=== PATIENT | female | born 1935 ===

== ENCOUNTER 2017-11-27 13:35 | Inpatient (IN) | payer MEDICARE, OTHER ==
[2017-11-27 13:35] VITALS: BMI 35.2
[2017-11-27] MEDS ORDERED: DiphenhydrAMINE 50 mg/ml Inj IVP STA (14:58)
[2017-11-27 15:24] LABS: HEMOGLOBIN 12.7 g/dL (11.0-16.0); MEAN CORPUSCULAR HEMOGLOBIN 29.7 pg (27.0-31.0); MEAN CORPUSCULAR HGB CONC 33.6 g/dL (33.0-37.0); MEAN PLATELET VOLUME 10.6 fL (7.2-11.7); RBC 4.3 Mil/uL (3.80-5.20); RED CELL DISTRIBUTION WIDTH 15.7 % (11.5-14.5); WHITE BLOOD COUNT 8.6 K/uL (4.8-10.8)
[2017-11-27 15:31] LABS: MEAN CELL VOLUME 88.3 fL (81.0-99.0)
[2017-11-27] MEDS ORDERED: DiphenhydrAMINE 50 mg/ml Inj ONE (15:33)
[2017-11-27 15:35] LABS: INR 1.2; PROTHROMBIN TIME 12.6 SECONDS (9.7-12.2)
[2017-11-27 15:44] LABS: ALB/GLOB RATIO 0.9 (1.0-2.1); ALBUMIN 3.7 g/dL (3.5-5.0)
[2017-11-27 15:48] LABS: EOS # 0.4 K/uL (0.0-0.7); LYMPH # 2.8 K/uL (1.0-4.3); MONO # 0.4 K/uL (0.0-0.8)
[2017-11-27 15:49] LABS: BILIRUBIN,DIRECT 21.4 mg/dL (0.0-0.4)
[2017-11-27] MEDS ORDERED: Sodium Chloride 0.9% 1,000 ML IV ONE (15:49)
[2017-11-27 16:47] LABS: HEPATITIS A IGM NEGATIVE (NEGATIVE); HEPATITIS B CORE AB NEGATIVE (NEGATIVE); HEPATITIS B SURFACE AG Negative (NEGATIVE); HEPATITIS C ANTIBODY NEGATIVE (NEGATIVE)
[2017-11-27] MEDS ORDERED: Iodixanol 320 MG/ML 100 ML BOTTLE IV ONE (17:10)
[2017-11-27 17:55] LABS: SQUAMOUS EPITHIAL 1 /hpf (0-5); URINE BACTERIA FEW (<OCC); URINE BILIRUBIN 2+ (NEGATIVE); URINE BLOOD NEGATIVE (NEGATIVE); URINE CLARITY Hazy (Clear); URINE COLOR Amber (YELLOW); URINE GLUCOSE (UA) 1+ mg/dL (Normal); URINE LEUKOCYTE ESTERASE NEG Leu/uL (Negative); URINE PROTEIN NEGATIVE (NEGATIVE)
--- NOTE | 2017-11-27 18:00 | CT ---
Date of service: 11/27/2017 PROCEDURE: CT Abdomen and Pelvis with contrast HISTORY: Jaundice. Abnormal LFTs. COMPARISON: None. TECHNIQUE: CT scan of the abdomen and pelvis was performed after administration of intravenous contrast. Oral contrast was not administered. Coronal and sagittal reformatted images were obtained. Contrast dose: 100 mL Visipaque Radiation dose: Total exam DLP = 1039.31 mGy-cm. This CT exam was performed using one or more of the following dose reduction techniques: Automated exposure control, adjustment of the mA and/or kV according to patient size, and/or use of iterative reconstruction technique. FINDINGS: LOWER THORAX: There is dependent atelectasis in the lung bases LIVER: Normal in size and there is diffuse fatty liver. Mild intrahepatic ductal dilatation. GALLBLADDER AND BILE DUCTS: The gallbladder is surgically absent. There is moderate diffuse dilatation of the common bile. The common bile duct measures 2.0 cm. No evidence for choledocholithiasis. PANCREAS: Diffuse fatty replacement. No gross lesion or ductal dilatation. SPLEEN: Normal in size and appearance. ADRENALS: No discrete nodule. KIDNEYS AND URETERS: Normal in size with homogeneous enhancement. No hydronephrosis. No solid mass. There is a 2.0 cm simple cyst in the lower pole of the right kidney. Small low-attenuation lesions in the left kidney are too small to characterize by CT criteria. VASCULATURE: Atherosclerotic aortoiliac calcifications. No aortic aneurysm. BOWEL: The small bowel loops are normal in caliber. There is scattered left colonic diverticulosis without CT evidence for acute diverticulitis. There is moderate amount of stool in the colon. No bowel dilatation or obstruction. APPENDIX: Normal appendix. PERITONEUM: Unremarkable. No free fluid. No free air. LYMPH NODES: Unremarkable. No enlarged lymph nodes. BLADDER: Unremarkable. REPRODUCTIVE: Unremarkable. BONES: No acute fracture. Within normal limits for the patient's age. OTHER FINDINGS: None. IMPRESSION: 1. Fatty liver. 2. Mild intrahepatic biliary dilatation and moderate dilatation of the common bile duct. No CT evidence for choledocholithiasis. Although these findings could be related to cholecystectomy status, distal common bile duct stricture cannot be excluded. No CT evidence for periampullary or pancreatic mass. 3. Left colonic diverticulosis without CT evidence for acute diverticulitis.
--- NOTE | 2017-11-27 18:29 | C.PDOC ---
History Of Present Illness Pt is c/o worsening jaundice. Time Seen by Provider: 11/27/17 14:05 Chief Complaint (Nursing): Abdominal Pain History Per: Patient Onset/Duration Of Symptoms: Days (few) Current Symptoms Are (Timing): Still Present Severity: Mild Location Of Pain/Discomfort: Epigastric Quality Of Discomfort: Unable To Describe, "Pain" Associated Symptoms: Other (Jaundice) Alleviating Factors: None Recent travel outside of the [place]: Yes (to [facility]) Additional History Per: Prior Records Past Medical History Reviewed: Historical Data, Nursing Documentation, Vital Signs Vital Signs: Last Vital Signs Temp 99 F 11/27/17 18:18 Pulse 77 11/27/17 18:18 Resp 16 11/27/17 18:18 BP 127/73 11/27/17 18:18 Pulse Ox 98 11/27/17 18:18 - Medical History PMH: Diabetes, HTN, Hypothyroidism Surgical History: Cholecystectomy Family History: States: Unknown Family Hx - Social History Hx Tobacco Use: No Hx Alcohol Use: No Hx Substance Use: No Review Of Systems Except As Marked, All Systems Reviewed And Found Negative. Constitutional: Negative for: Fever Cardiovascular: Negative for: Chest Pain Respiratory: Negative for: Shortness of Breath Gastrointestinal: Negative for: Vomiting Genitourinary: Negative for: Dysuria Musculoskeletal: Positive for: Back Pain. Negative for: Neck Pain Skin: Positive for: Jaundice Neurological: Negative for: Weakness, Numbness, Seizures, Altered Mental Status Physical Exam - Physical Exam Appears: No Acute Distress Skin: Warm, Dry, Jaundice Head: Atraumatic Eye(s): bilateral: PERRL, EOMI, Scleral Icterus Neck: Normal ROM, Supple Cardiovascular: Rhythm Regular Respiratory: Normal Breath Sounds, No Accessory Muscle Use Gastrointestinal/Abdominal: Soft, No Tenderness Back: No CVA Tenderness Extremity: Normal ROM Neurological/Psych: Oriented x3, Normal Motor, Normal Sensation ED Course And Treatment - Laboratory Results Result Diagrams: 11/27/17 15:20 11/27/17 15:20 Lab Interpretation: Abnormal Interpretation Of Abnormal: Abnormal LFTs O2 Sat by Pulse Oximetry: 98 Pulse Ox Interpretation: Normal Disposition Discussed With : Desi Rooney Comment: She accepted pt on her service. Doctor Will See Patient In The: Hospital Counseled Patient/Family Regarding: Studies Performed, Diagnosis - Disposition Disposition: HOSPITALIZED Disposition Time: 18:31 Condition: SERIOUS - Clinical Impression Clinical Impression: Jaundice, Liver failure
[2017-11-28] MEDS: Levothyroxine 112 MCG TAB PO SCH (06:19)
[2017-11-28 08:20] LABS: ALT/SGPT 980 U/L (9-52); BLOOD UREA NITROGEN 37 mg/dL (7-17); CALCIUM 9.6 mg/dl (8.6-10.4); GFR AFRICAN-AMERICAN > 60; GFR NON-AFRICAN AMERICAN > 60
[2017-11-28 08:21] LABS: ALB/GLOB RATIO 0.9 (1.0-2.1); ALBUMIN 3.5 g/dL (3.5-5.0)
[2017-11-28 08:50] LABS: AST/SGOT 929 U/L (14-36)
[2017-11-28] MEDS: (Novolog) Insulin Aspart, Recombinant 100 u/ml 10 ml vial SC SCH ×4 (08:52→21:53)
[2017-11-28] MEDS: Enoxaparin 40 mg Syringe SC SCH (09:00)
[2017-11-28] MEDS: Metoprolol Succinate 50 mg XL Tab PO SCH (09:01)
[2017-11-28] MEDS ORDERED: Metoprolol Succinate 50 mg XL Tab PO SCH ×2 (10:00)
--- NOTE | 2017-11-28 11:07 | US ---
Date of service: 11/28/2017 HISTORY: elevated LFTs r/o obstruction COMPARISON: None. TECHNIQUE: Sonographic evaluation of the abdomen. FINDINGS: LIVER: Measures 13.0 cm. There is diffuse increased echogenicity of the liver parenchyma. No mass. There is mild intrahepatic bile duct dilatation. GALLBLADDER: Surgically absent. COMMON BILE DUCT: Measures 15 mm. No stones. Diffuse dilatation of the common bile duct without evidence for choledocholithiasis. PANCREAS: Unremarkable as visualized. No mass. No ductal dilatation. RIGHT KIDNEY: Measures 11.0cm. Normal echogenicity. No calculus, mass, or hydronephrosis. LEFT KIDNEY: Measures 8.9cm. Normal echogenicity. No calculus, mass, or hydronephrosis. There is a 2.0 x 1.4 x 2.0 cm simple cyst in the lower pole. SPLEEN: Normal in size and contour. No mass. AORTA: No aneurysmal dilatation. IVC: Unremarkable. OTHER FINDINGS: None. IMPRESSION: Diffuse increased echogenicity in the liver may reflect hepatic steatosis however parenchymal infectious/ inflammatory etiologies cannot be entirely excluded. Clinical and laboratory correlation is advised. Mild intra and extrahepatic biliary ductal dilatation, no sonographic evidence for choledocholithiasis. Although findings could be related to post cholecystectomy status, distal obstruction cannot be excluded. If clinically indicated, correlation with ERCP may be performed with
--- NOTE | 2017-11-28 15:43 | CP.PCM.CON ---
History of Present Illness - History of Present Illness History of Present Illness: This is an 82 year old woman with chief complaint of itching and jaundice. Patient had normal liver enzymes in April. She presented to Dr. Rooney's office 11/27/17 with a three day history of itching and yellow skin. She denies having nausea, vomiting, abdominal pain, heartburn. She had diarrhea one week prior to admission which resolved spontaneously. Abnormal liver enzymes were noted in the ER: TBILI 22.7, AST 952, ALT 1190, ALKP 2199, GGT 1388. CT scan showed mild IHBD, CBD 2.0 cm without obvious choledocholithiasis. MRCP was ordered. Review of Systems - Constitutional Constitutional: absent: Chills - EENT Eyes: absent: Blurred Vision - Cardiovascular Cardiovascular: absent: Chest Pain, Dyspnea - Respiratory Respiratory: absent: Cough, Dyspnea - Gastrointestinal Gastrointestinal: Diarrhea. absent: Abdominal Pain, Constipation, Nausea, Vomiting - Genitourinary Genitourinary: absent: Change in Urinary Stream Past Patient History - Past Medical History & Family History Past Medical History?: Yes - Past Social History Smoking Status: Former Smoker - CARDIAC Hx Cardiac Disorders: Yes Hx Hypertension: Yes - PULMONARY Hx Respiratory Disorders: Yes (DYSPNEA ON EXERTION) - NEUROLOGICAL Hx Neurological Disorder: No - HEENT Hx HEENT Problems: Yes Hx Cataracts: Yes - RENAL Hx Chronic Kidney Disease: No - ENDOCRINE/METABOLIC Hx Endocrine Disorders: Yes Hx Hypothyroidism: Yes - HEMATOLOGICAL/ONCOLOGICAL Hx Blood Disorders: No - INTEGUMENTARY Hx Dermatological Problems: No - MUSCULOSKELETAL/RHEUMATOLOGICAL Hx Falls: No - GASTROINTESTINAL Hx Gastrointestinal Disorders: Yes Hx Gastroesophageal Reflux: Yes - GENITOURINARY/GYNECOLOGICAL Hx Genitourinary Disorders: No - PSYCHIATRIC Hx Substance Use: No - SURGICAL HISTORY Hx Surgeries: Yes Hx Cholecystectomy: Yes - ANESTHESIA Hx Anesthesia: Yes Hx Anesthesia Reactions: No Hx Malignant Hyperthermia: No Meds Allergies/Adverse Reactions: Allergies Allergy/AdvReac Type Severity Reaction Status Date / Time aspirin Allergy Intermediate SHORTNESS Verified 06/02/15 10:12 OF BREATH honey Allergy Intermediate SHORTNESS Verified 06/02/15 10:12 OF BREATH - Medications Medications: Current Medications Clopidogrel Bisulfate (Plavix) 75 mg PO DAILY [facility] Last Admin: 11/28/17 09:00 Dose: 75 mg Enoxaparin Sodium (Lovenox) 40 mg SC DAILY [facility] Last Admin: 11/28/17 09:00 Dose: 40 mg Glimepiride (Amaryl) 4 mg PO ACB [facility] Last Admin: 11/28/17 08:52 Dose: 4 mg Hydrochlorothiazide (Microzide) 12.5 mg PO DAILY [facility] Last Admin: 11/28/17 09:00 Dose: 12.5 mg Insulin Aspart (Novolog) 0 unit SC ACHS [facility] PRN Reason: Protocol Last Admin: 11/28/17 11:52 Dose: 4 units Levothyroxine Sodium (Synthroid) 112 mcg PO DAILY@0630 [facility] Last Admin: 11/28/17 06:19 Dose: 112 mcg Losartan Potassium (Cozaar) 100 mg PO DAILY [facility] Last Admin: 11/28/17 09:00 Dose: 100 mg Metformin HCl (Glucophage) 850 mg PO TID [facility] Last Admin: 11/28/17 13:37 Dose: 850 mg Metoprolol Succinate (Toprol Xl) 50 mg PO DAILY [facility] Last Admin: 11/28/17 09:01 Dose: 50 mg Physical Exam - Constitutional Appears: No Acute Distress - Head Exam Head Exam: ATRAUMATIC, NORMOCEPHALIC - Eye Exam Eye Exam: Scleral icterus - Neck Exam Neck exam: Negative for: Lymphadenopathy, Thyromegaly - Respiratory Exam Respiratory Exam: NORMAL BREATHING PATTERN. absent: Rales, Rhonchi, Wheezes - Cardiovascular Exam Cardiovascular Exam: REGULAR RHYTHM, +S1, +S2. absent: Gallop, Rubs, Systolic Murmur - GI/Abdominal Exam GI & Abdominal Exam: Normal Bowel Sounds, Soft. absent: Mass, Organomegaly, Tenderness - Rectal Exam Rectal Exam: Deferred - Extremities Exam Extremities exam: Negative for: calf tenderness, pedal edema Results - Vital Signs Recent Vital Signs: Last Vital Signs Temp 98.6 F 11/28/17 07:36 Pulse 76 11/28/17 07:36 Resp 20 11/28/17 07:36 BP 134/64 11/28/17 07:36 Pulse Ox 97 11/28/17 07:36 - Labs Result Diagrams: 11/27/17 15:20 11/29/17 07:09 Labs: Laboratory Results - last 24 hr 11/27/17 11/27/17 11/27/17 15:20 15:20 15:20 Neut % (Auto) 58.0 Lymph % (Auto) 32.0 Holt % (Auto) 5.0 Eos % (Auto) 5.0 H Baso % (Auto) 0.0 Neut # (Auto) 5.0 Lymph # (Auto) 2.8 Holt # (Auto) 0.4 Eos # (Auto) 0.4 Baso # (Auto) 0.0 Total Counted Cancelled Neutrophils % (Manual) Cancelled Band Neutrophils % Cancelled Lymphocytes % (Manual) Cancelled Reactive Lymphs % Cancelled Monocytes % (Manual) Cancelled Eosinophils % (Manual) Cancelled Basophils % (Manual) Cancelled Metamyelocytes % Cancelled Myelocytes % Cancelled Promyelocytes % Cancelled Blast Cells % Cancelled Plasma Cell % (Manual) Cancelled Nucleated RBC % Cancelled Hypersegmented Polys Cancelled Smudge Cells Cancelled Toxic Granulation Cancelled Dohle Bodies Cancelled Isis Rods Cancelled Platelet Estimate Cancelled Plt Clumps, EDTA Cancelled Large Platelets Cancelled Giant Platelets Cancelled RBC Morphology Cancelled Polychromasia Cancelled Hypochromasia (manual) Cancelled Poikilocytosis (manual Cancelled Basophilic Stippling Cancelled Anisocytosis (manual) Cancelled Microcytosis (manual) Cancelled Macrocytosis (manual) Cancelled Spherocytes Cancelled Sickle Cells Cancelled Target Cells Cancelled Tear Drop Cells Cancelled Ovalocytes Cancelled Stomatocytes Cancelled Helmet Cells Cancelled Mercer-Marion Bodies Cancelled Sonia Cells Cancelled Acanthocytes (Spur) Cancelled Rouleaux Cancelled Schistocytes Cancelled PT 12.6 H INR 1.2 APTT 35 H Sodium 131 L Potassium 4.6 Chloride 97 L Carbon Dioxide 20 L Anion Gap 19 BUN 45 H Creatinine 1.2 Est GFR ( Amer) 52 Est GFR (Non-Af Amer) 43 POC Glucose (mg/dL) Random Glucose 273 H Calcium 10.0 Total Bilirubin 22.7 H Direct Bilirubin 21.4 H GGT 1385 H AST 951 H ALT 1190 H Alkaline Phosphatase 2199 H Total Protein 7.7 Albumin 3.7 Globulin 4.0 H Albumin/Globulin Ratio 0.9 L Lipase 72 Urine Color Urine Clarity Urine pH Ur Specific Boyden Urine Protein Urine Glucose (UA) Urine Ketones Urine Blood Urine Nitrate Urine Bilirubin Urine Urobilinogen Ur Leukocyte Esterase Ur Squamous Epith Cells Urine Bacteria Hepatitis A IgM Ab Hep Bs Antigen Hep B Core IgM Ab Hepatitis C Antibody 11/27/17 11/27/17 11/27/17 15:20 17:43 22:29 Neut % (Auto) Lymph % (Auto) Holt % (Auto) Eos % (Auto) Baso % (Auto) Neut # (Auto) Lymph # (Auto) Holt # (Auto) Eos # (Auto) Baso # (Auto) Total Counted Neutrophils % (Manual) Band Neutrophils % Lymphocytes % (Manual) Reactive Lymphs % Monocytes % (Manual) Eosinophils % (Manual) Basophils % (Manual) Metamyelocytes % Myelocytes % Promyelocytes % Blast Cells % Plasma Cell % (Manual) Nucleated RBC % Hypersegmented Polys Smudge Cells Toxic Granulation Dohle Bodies Isis Rods Platelet Estimate Plt Clumps, EDTA Large Platelets Giant Platelets RBC Morphology Polychromasia Hypochromasia (manual) Poikilocytosis (manual Basophilic Stippling Anisocytosis (manual) Microcytosis (manual) Macrocytosis (manual) Spherocytes Sickle Cells Target Cells Tear Drop Cells Ovalocytes Stomatocytes Helmet Cells Mercer-Marion Bodies Boelus Cells Acanthocytes (Spur) Rouleaux Schistocytes PT INR APTT Sodium Potassium Chloride Carbon Dioxide Anion Gap BUN Creatinine Est GFR ( Amer) Est GFR (Non-Af Amer) POC Glucose (mg/dL) 290 H Random Glucose Calcium Total Bilirubin Direct Bilirubin GGT AST ALT Alkaline Phosphatase Total Protein Albumin Globulin Albumin/Globulin Ratio Lipase Urine Color Galilea Urine Clarity Hazy Urine pH 5.0 Ur Specific Boyden 1.010 Urine Protein Negative Urine Glucose (UA) 1+ Urine Ketones Negative Urine Blood Negative Urine Nitrate Negative Urine Bilirubin 2+ H Urine Urobilinogen 2.0 H Ur Leukocyte Esterase Neg Ur Squamous Epith Cells 1 Urine Bacteria Few H Hepatitis A IgM Ab Negative Hep Bs Antigen Negative Hep B Core IgM Ab Negative Hepatitis C Antibody Negative 11/28/17 11/28/17 11/28/17 07:09 07:37 11:09 Neut % (Auto) Lymph % (Auto) Holt % (Auto) Eos % (Auto) Baso % (Auto) Neut # (Auto) Lymph # (Auto) Holt # (Auto) Eos # (Auto) Baso # (Auto) Total Counted Neutrophils % (Manual) Band Neutrophils % Lymphocytes % (Manual) Reactive Lymphs % Monocytes % (Manual) Eosinophils % (Manual) Basophils % (Manual) Metamyelocytes % Myelocytes % Promyelocytes % Blast Cells % Plasma Cell % (Manual) Nucleated RBC % Hypersegmented Polys Smudge Cells Toxic Granulation Dohle Bodies Isis Rods Platelet Estimate Plt Clumps, EDTA Large Platelets Giant Platelets RBC Morphology Polychromasia Hypochromasia (manual) Poikilocytosis (manual Basophilic Stippling Anisocytosis (manual) Microcytosis (manual) Macrocytosis (manual) Spherocytes Sickle Cells Target Cells Tear Drop Cells Ovalocytes Stomatocytes Helmet Cells Mercer-Marion Bodies Boelus Cells Acanthocytes (Spur) Rouleaux Schistocytes PT INR APTT Sodium 136 Potassium 4.3 Chloride 105 Carbon Dioxide 16 L Anion Gap 20 BUN 37 H Creatinine 0.9 Est GFR ( Amer) > 60 Est GFR (Non-Af Amer) > 60 POC Glucose (mg/dL) 263 H 349 H Random Glucose 245 H Calcium 9.6 Total Bilirubin 21.4 H Direct Bilirubin GGT AST 929 H ALT 980 H Alkaline Phosphatase 2100 H Total Protein 7.3 Albumin 3.5 Globulin 3.8 Albumin/Globulin Ratio 0.9 L Lipase Urine Color Urine Clarity Urine pH Ur Specific Boyden Urine Protein Urine Glucose (UA) Urine Ketones Urine Blood Urine Nitrate Urine Bilirubin Urine Urobilinogen Ur Leukocyte Esterase Ur Squamous Epith Cells Urine Bacteria Hepatitis A IgM Ab Hep Bs Antigen Hep B Core IgM Ab Hepatitis C Antibody Assessment & Plan (1) Jaundice Assessment and Plan: Patient has obstructive jaundice without obvious mass or common duct stones. Will order MRI and schedule ERCP for drainage. EUS may also be helpful, which may be arranged as an outpatient. Status: Acute
[2017-11-28 18:15] LABS: HEPATITIS B CORE AB NEGATIVE (NEGATIVE)
[2017-11-28 18:22] LABS: % IRON SATURATION 64 (20-55); IRON 103 ug/dL (37-170); TOTAL IRON BINDING CAPACITY 161 ug/dL (250-450)
[2017-11-28 18:27] LABS: HEPATITIS C ANTIBODY NEGATIVE (NEGATIVE)
[2017-11-28 18:34] LABS: HEPATITIS B SURFACE AG Negative (NEGATIVE)
[2017-11-28 19:47] LABS: FOLATE 18.1 ng/mL
--- NOTE | 2017-11-28 21:09 | CP.PCM.HP ---
History of Present Illness - History of Present Illness History of Present Illness: cc; Itching 82 year old jesus to my office 11/27 by sone due to a 3 days history of jaundice and pruritus\ PT denies abd pain. Denies recent travel except for trip to [place] about a month ago. Pt reported a couple of episodes of diarrhe a week ago but self limited. Pt denied acohol, neb meds or abd pain. PT had a vasquez years ago. Pmhs htn DM hypothyroidism PSH Vasquez social denies ethoh or alcohol meds; jardiance metformin glipizdie valsartan plavix family hx parents diseased Present on Admission - Present on Admission Any Indicators Present on Admission: No History of DVT/PE: No History of Uncontrolled Diabetes: No Urinary Catheter: No Decubitus Ulcer Present: No History Surgical Site Infection Following: None Review of Systems - Constitutional Constitutional: absent: Chills, Daytime Sleepiness - EENT Eyes: absent: Blurred Vision - Cardiovascular Cardiovascular: absent: Chest Pain, Chest Pain with Activity, Diaphoresis - Respiratory Respiratory: absent: Cough, Dyspnea, Wheezing, Pain on Inspiration - Gastrointestinal Gastrointestinal: Diarrhea. absent: Abdominal Pain, Belching, Constipation, Cramping - Genitourinary Genitourinary: absent: Change in Urinary Stream - Musculoskeletal Musculoskeletal: absent: Abnormal Gait Past Patient History - Past Medical History & Family History Past Medical History?: Yes - Past Social History Smoking Status: Former Smoker - CARDIAC Hx Cardiac Disorders: Yes Hx Hypertension: Yes - PULMONARY Hx Respiratory Disorders: Yes (DYSPNEA ON EXERTION) - NEUROLOGICAL Hx Neurological Disorder: No - HEENT Hx HEENT Problems: Yes Hx Cataracts: Yes - RENAL Hx Chronic Kidney Disease: No - ENDOCRINE/METABOLIC Hx Endocrine Disorders: Yes Hx Hypothyroidism: Yes - HEMATOLOGICAL/ONCOLOGICAL Hx Blood Disorders: No - INTEGUMENTARY Hx Dermatological Problems: No - MUSCULOSKELETAL/RHEUMATOLOGICAL Hx Falls: No - GASTROINTESTINAL Hx Gastrointestinal Disorders: Yes Hx Gastroesophageal Reflux: Yes - GENITOURINARY/GYNECOLOGICAL Hx Genitourinary Disorders: No - PSYCHIATRIC Hx Substance Use: No - SURGICAL HISTORY Hx Surgeries: Yes Hx Cholecystectomy: Yes - ANESTHESIA Hx Anesthesia: Yes Hx Anesthesia Reactions: No Hx Malignant Hyperthermia: No Meds Allergies/Adverse Reactions: Allergies Allergy/AdvReac Type Severity Reaction Status Date / Time aspirin Allergy Intermediate SHORTNESS Verified 06/02/15 10:12 OF BREATH honey Allergy Intermediate SHORTNESS Verified 06/02/15 10:12 OF BREATH Physical Exam - Constitutional Appears: Non-toxic, No Acute Distress - Eye Exam Eye Exam: Normal appearance, Scleral icterus - ENT Exam ENT Exam: Mucous Membranes Moist - Neck Exam Neck exam: Positive for: Normal Inspection. Negative for: Meningismus - Respiratory Exam Respiratory Exam: Clear to Auscultation Bilateral, NORMAL BREATHING PATTERN. absent: Chest Wall Tenderness, Prolonged Expiratory Phase - Cardiovascular Exam Cardiovascular Exam: REGULAR RHYTHM, RRR, +S1, +S2. absent: JVD, Rubs - GI/Abdominal Exam GI & Abdominal Exam: Normal Bowel Sounds, Soft. absent: Guarding, Mass, Organomegaly, Rebound, Rigid - Exam External exam: NORMAL EXTERNAL EXAM. absent: Swelling (ski: jaundice. +icterus) Results - Vital Signs Recent Vital Signs: Last Vital Signs Temp 97.9 F 11/28/17 16:57 Pulse 65 11/28/17 16:57 Resp 20 11/28/17 16:57 BP 126/71 11/28/17 16:57 Pulse Ox 98 11/28/17 16:57 - Labs Result Diagrams: 11/27/17 15:20 11/29/17 07:09 Labs: Laboratory Results - last 24 hr 11/27/17 11/28/17 11/28/17 22:29 07:09 07:37 Sodium 136 Potassium 4.3 Chloride 105 Carbon Dioxide 16 L Anion Gap 20 BUN 37 H Creatinine 0.9 Est GFR ( Amer) > 60 Est GFR (Non-Af Amer) > 60 POC Glucose (mg/dL) 290 H 263 H Random Glucose 245 H Calcium 9.6 Iron TIBC % Saturation Ferritin Total Bilirubin 21.4 H AST 929 H ALT 980 H Alkaline Phosphatase 2100 H Total Protein 7.3 Albumin 3.5 Globulin 3.8 Albumin/Globulin Ratio 0.9 L Vitamin B12 25-OH Vitamin D Total Folate Hep Bs Antigen Hep Bs Antibody Hep B Core IgM Ab Hepatitis C Antibody 11/28/17 11/28/17 11/28/17 11:09 16:33 16:45 Sodium Potassium Chloride Carbon Dioxide Anion Gap BUN Creatinine Est GFR ( Amer) Est GFR (Non-Af Amer) POC Glucose (mg/dL) 349 H 249 H Random Glucose Calcium Iron 103 TIBC 161 L % Saturation 64 H Ferritin Total Bilirubin AST ALT Alkaline Phosphatase Total Protein Albumin Globulin Albumin/Globulin Ratio Vitamin B12 25-OH Vitamin D Total Folate Hep Bs Antigen Hep Bs Antibody Hep B Core IgM Ab Hepatitis C Antibody 11/28/17 11/28/17 11/28/17 16:45 16:45 16:45 Sodium Potassium Chloride Carbon Dioxide Anion Gap BUN Creatinine Est GFR ( Amer) Est GFR (Non-Af Amer) POC Glucose (mg/dL) Random Glucose Calcium Iron TIBC % Saturation Ferritin 750.0 Total Bilirubin AST ALT Alkaline Phosphatase Total Protein Albumin Globulin Albumin/Globulin Ratio Vitamin B12 > 1000 H 25-OH Vitamin D Total 17.3 L Folate 18.1 Hep Bs Antigen Negative Hep Bs Antibody Negative Hep B Core IgM Ab Negative Hepatitis C Antibody Negative Assessment & Plan - Assessment and Plan (Free Text) Assessment: New onset obstructive jaundice NO prior history of liver disease Intrahepatic biliary dialation no evidence of chonlangitis neg for viral hepatitis prior LFT normal , normal prior alk phos no new meds discussed case with DR. Gomez MRI pending may need ERCP obstructive patten cholestyramine for pruritus pending treatment DM elevated sugars some meds helf for now small dose of levemir qhs bp is stable
[2017-11-28] MEDS: Cholestyramine 4 gm/Pkt UD PO SCH (22:27)
[2017-11-29] MEDS: Levothyroxine 112 MCG TAB PO SCH (06:35)
[2017-11-29] MEDS: (Novolog) Insulin Aspart, Recombinant 100 u/ml 10 ml vial SC SCH ×4 (07:37→21:29)
[2017-11-29 07:40] LABS: ALB/GLOB RATIO 0.9 (1.0-2.1); ALBUMIN 3.2 g/dL (3.5-5.0)
[2017-11-29] MEDS ORDERED: Gadodiamide 287 mg/ml 20 ml IV ONE (09:14)
[2017-11-29] MEDS ORDERED: Insulin Detemir 100 units/ml Vial (Levemir) SC SCH (10:00)
[2017-11-29] MEDS: Enoxaparin 40 mg Syringe SC SCH (10:21)
[2017-11-29] MEDS: Cholestyramine 4 gm/Pkt UD PO SCH ×2 (10:22→19:11)
[2017-11-29] MEDS: Metoprolol Succinate 50 mg XL Tab PO SCH (10:48)
--- NOTE | 2017-11-29 12:11 | MRI ---
Date of service: 11/29/2017 PROCEDURE: Magnetic Resonance Cholangiopancreatography HISTORY: COMPARISON: None available. TECHNIQUE: Multiplanar, multisequence MR images of the abdomen were obtained, including heavily T2 weighted MRCP images of the biliary system. Rotating maximum intensity projection images of the biliary system were generated. FINDINGS: MRCP: The common bile duct measures up to 16 mm in diameter. The common hepatic duct, proximal to the cystic duct insertion, measures 16 mm in diameter. There is no filling defect seen within the common bile duct. There is no evidence of choledocholithiasis. There is moderate intrahepatic biliary ductal dilatation. There is rapid symmetric change in caliber of the distal common bile duct in the intrapancreatic portion. There is no accompanying pancreatic ductal dilatation. The finding may indicate biliary stricture or less likely biliary neoplasm. There is no enhancing mass demonstrated at the level of the distal common bile duct, following intravenous gadolinium administration. LIVER: Normal size, contour and signal intensity. No mass. As noted above, there is moderate intrahepatic biliary ductal dilatation. GALLBLADDER: Status post cholecystectomy. Cystic duct remnant noted. SPLEEN: Unremarkable. PANCREAS: Unremarkable. ADRENALS: There is a 1.8 cm left adrenal mass. This mass loses signal intensity on progression from in phase to opposed phase images, consistent with lipid content. This is consistent with an adrenal adenoma. There is no right adrenal mass. KIDNEYS: Right lower pole renal cortical cyst, 1.7 cm. No hydronephrosis. AORTA: No aneurysm. ASCITES: None. OTHER FINDINGS: None. IMPRESSION: Intra and extrahepatic biliary ductal dilatation with rapid symmetric tapering of the distal common bile duct. Possible biliary stricture. Less likely biliary neoplasm. No enhancing mass. No pancreatic ductal dilatation. No evidence of choledocholithiasis. Incidental 1.8 cm left adrenal adenoma. Right lower pole renal cortical cyst.
[2017-11-29] MEDS ORDERED: Propofol 10 mg/ml Inj (20 ML) ONE (15:45)
[2017-11-29] MEDS ORDERED: Indomethacin 50 MG Suppository PR ONE ×2 (16:19→16:20)
--- NOTE | 2017-11-29 18:54 | RAD ---
Date of service: 11/29/2017 PROCEDURE: Intraoperative Fluoroscopy. HISTORY: JAUNDICE FINDINGS: Fluoroscopic assistance was provided for ERCP. Please refer to the operative report from CLARENCE Luna, , MD DIVYA. Total fluoroscopic time (continuous mode) utilized during the procedure 152.3 (seconds).
[2017-11-29] MEDS: Piperacill/Tazo 3.375gm in Dex 3.375 GM/50 ML BAG IVPB SCH (19:08)
[2017-11-29] MEDS: Lactated Ringer's 1,000 ML IV SCH (19:08)
--- NOTE | 2017-11-29 23:47 | CP.PCM.PN ---
Subjective - Date & Time of Evaluation Date of Evaluation: 11/29/17 Time of Evaluation: 23:59 - Subjective Subjective: Spoke to Dr. 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 Pt reports no abd pain and less prutitus today Objective - Vital Signs/Intake and Output Vital Signs (last 24 hours): Temp Pulse Resp BP Pulse Ox 97.1 F L 59 L 19 124/42 L 100 11/29/17 18:30 11/29/17 18:30 11/29/17 18:30 11/29/17 18:30 11/29/17 18:30 Intake and Output: 11/29/17 11/30/17 18:59 06:59 Intake Total 900 Balance 900 - Medications Medications: Current Medications Cholestyramine Resin (Questran) 4 gm PO BID [facility] Last Admin: 11/29/17 19:11 Dose: Not Given Clopidogrel Bisulfate (Plavix) 75 mg PO DAILY [facility] Last Admin: 11/29/17 10:21 Dose: Not Given Enoxaparin Sodium (Lovenox) 40 mg SC DAILY [facility] Last Admin: 11/29/17 10:21 Dose: Not Given Glimepiride (Amaryl) 4 mg PO BID [facility] Last Admin: 11/29/17 19:09 Dose: Not Given Hydrochlorothiazide (Microzide) 12.5 mg PO DAILY [facility] Last Admin: 11/29/17 10:48 Dose: 12.5 mg Lactated Ringer's (Lactated Ringer's) 1,000 mls @ 100 mls/hr IV .Q10H [facility] Last Admin: 11/29/17 19:08 Dose: 100 mls/hr Piperacillin Sod/Tazobactam Sod (Zosyn 3.375 Gm Iv Premix) 3.375 gm in 50 mls @ 100 mls/hr IVPB Q6H [facility] PRN Reason: Protocol Last Admin: 11/29/17 19:08 Dose: 100 mls/hr Insulin Aspart (Novolog) 0 unit SC ACHS [facility] PRN Reason: Protocol Last Admin: 11/29/17 21:29 Dose: Not Given Insulin Detemir (Levemir) 10 unit SC DAILY [facility] Last Admin: 11/29/17 10:21 Dose: Not Given Levothyroxine Sodium (Synthroid) 112 mcg PO DAILY@0630 [facility] Last Admin: 11/29/17 06:35 Dose: 112 mcg Metformin HCl (Glucophage) 850 mg PO TID [facility] Last Admin: 11/29/17 19:10 Dose: Not Given Metoprolol Succinate (Toprol Xl) 50 mg PO DAILY [facility] Last Admin: 11/29/17 10:48 Dose: 50 mg - Labs Labs: 11/27/17 15:20 11/29/17 07:09 PT 12.6 SECONDS (9.7-12.2) H 11/27/17 15:20 INR 1.2 11/27/17 15:20 APTT 35 SECONDS (21-34) H 11/27/17 15:20 - Constitutional Appears: Non-toxic - Eye Exam Eye Exam: Normal appearance, Scleral icterus - ENT Exam ENT Exam: Mucous Membranes Moist - Respiratory Exam Respiratory Exam: Clear to Ausculation Bilateral. absent: Chest Wall Tenderness - Cardiovascular Exam Cardiovascular Exam: RRR. absent: JVD - GI/Abdominal Exam GI & Abdominal Exam: Soft. absent: Tenderness - Extremities Exam Extremities Exam: absent: Joint Swelling Assessment and Plan - Assessment and Plan (Free Text) Assessment: Jaundice biliary stricture see HPI for details PT will be transfered to [facility] for procedure bp on low side decrease meds diabetes increased insulin
[2017-11-29 23:54] VITALS: RESP 20
[2017-11-30] MEDS: Piperacill/Tazo 3.375gm in Dex 3.375 GM/50 ML BAG IVPB SCH ×3 (00:08→12:22)
[2017-11-30] MEDS: Lactated Ringer's 1,000 ML IV SCH ×2 (04:27→06:01)
[2017-11-30] MEDS: Levothyroxine 112 MCG TAB PO SCH (06:02)
[2017-11-30 07:26] LABS: HEMOGLOBIN 11.9 g/dL (11.0-16.0); MEAN CELL VOLUME 87.8 fL (81.0-99.0); MEAN CORPUSCULAR HEMOGLOBIN 28.8 pg (27.0-31.0); MEAN CORPUSCULAR HGB CONC 32.8 g/dL (33.0-37.0); MEAN PLATELET VOLUME 10.3 fL (7.2-11.7); RBC 4.13 Mil/uL (3.80-5.20); RED CELL DISTRIBUTION WIDTH 16.6 % (11.5-14.5); WHITE BLOOD COUNT 10.3 K/uL (4.8-10.8)
[2017-11-30 07:53] LABS: ALBUMIN 3.3 g/dL (3.5-5.0); CALCIUM 9.3 mg/dl (8.6-10.4)
[2017-11-30] MEDS: (Novolog) Insulin Aspart, Recombinant 100 u/ml 10 ml vial SC SCH ×3 (07:58→17:30)
[2017-11-30 09:04] LABS: EOS # 0.2 K/uL (0.0-0.7); LYMPH # 3.9 K/uL (1.0-4.3); MONO # 0.1 K/uL (0.0-0.8); NEUT # 6.1 K/uL (1.8-7.0)
[2017-11-30] MEDS: Enoxaparin 40 mg Syringe SC SCH (09:17)
[2017-11-30] MEDS: Cholestyramine 4 gm/Pkt UD PO SCH ×2 (09:30→17:30)
[2017-11-30] MEDS: Metoprolol Succinate 50 mg XL Tab PO SCH (09:30)
--- NOTE | 2017-11-30 10:07 | CP.PCM.PN ---
Subjective - Date & Time of Evaluation Date of Evaluation: 11/30/17 Time of Evaluation: 09:50 - Subjective Subjective: F/u jaundice. Covering DR Gomez. Son is present. Reports epig pain started today am- sharp, moderate. No back pain, no radiation. Denies fever, chills, SZ, LOC, AH, cough, RB, melena, hemoptysis. Reports sl throat pain Objective - Vital Signs/Intake and Output Vital Signs (last 24 hours): Temp Pulse Resp BP Pulse Ox 97.5 F L 66 20 145/73 96 11/30/17 07:59 11/30/17 07:59 11/30/17 07:59 11/30/17 07:59 11/30/17 07:59 Intake and Output: 11/30/17 11/30/17 06:59 18:59 Intake Total 800 Balance 800 - Medications Medications: Current Medications Cholestyramine Resin (Questran) 4 gm PO BID [facility] Last Admin: 11/30/17 09:30 Dose: 4 gm Clopidogrel Bisulfate (Plavix) 75 mg PO DAILY [facility] Last Admin: 11/30/17 09:18 Dose: 75 mg Enoxaparin Sodium (Lovenox) 40 mg SC DAILY [facility] Last Admin: 11/30/17 09:17 Dose: 40 mg Glimepiride (Amaryl) 4 mg PO BID [facility] Last Admin: 11/30/17 09:19 Dose: Not Given Hydrochlorothiazide (Microzide) 12.5 mg PO DAILY [facility] Last Admin: 11/30/17 09:17 Dose: 12.5 mg Lactated Ringer's (Lactated Ringer's) 1,000 mls @ 100 mls/hr IV .Q10H [facility] Last Admin: 11/30/17 06:01 Dose: 100 mls/hr Piperacillin Sod/Tazobactam Sod (Zosyn 3.375 Gm Iv Premix) 3.375 gm in 50 mls @ 100 mls/hr IVPB Q6H [facility] PRN Reason: Protocol Last Admin: 11/30/17 06:01 Dose: 100 mls/hr Insulin Aspart (Novolog) 0 unit SC ACHS [facility] PRN Reason: Protocol Last Admin: 11/30/17 07:58 Dose: Not Given Insulin Detemir (Levemir) 15 unit SC [facility] Levothyroxine Sodium (Synthroid) 112 mcg PO DAILY@0630 [facility] Last Admin: 11/30/17 06:02 Dose: 112 mcg Losartan Potassium (Cozaar) 50 mg PO DAILY [facility] Last Admin: 11/30/17 09:18 Dose: 50 mg Metformin HCl (Glucophage) 850 mg PO TID [facility] Last Admin: 11/30/17 09:19 Dose: Not Given Metoprolol Succinate (Toprol Xl) 50 mg PO DAILY [facility] Last Admin: 11/30/17 09:30 Dose: 50 mg - Labs Labs: 11/30/17 07:20 11/30/17 07:20 PT 12.6 SECONDS (9.7-12.2) H 11/27/17 15:20 INR 1.2 11/27/17 15:20 APTT 35 SECONDS (21-34) H 11/27/17 15:20 - Constitutional Appears: Well, Non-toxic - Respiratory Exam Respiratory Exam: Clear to Ausculation Bilateral - Cardiovascular Exam Cardiovascular Exam: RRR - GI/Abdominal Exam GI & Abdominal Exam: Soft, Tenderness, Normal Bowel Sounds. absent: Distended, Guarding, Mass, Rebound Additional comments: Mild epig tenderness - Extremities Exam Extremities Exam: absent: Calf Tenderness - Neurological Exam Neurological Exam: Alert, Oriented x3 Assessment and Plan (1) Epigastric abdominal pain Assessment & Plan: after ERCp- consider pancreatitis. Status: Acute (2) Jaundice Assessment & Plan: Obstructive jaundice, MRCP shows distal CBD taper. ERCP- not able to cannulate. Arranging for transfer to [facility], Dr Francesco Rodriguez. Dr Gomez spoke to Dr Rodriguez. Status: Acute
[2017-11-30] MEDS ORDERED: Lactated Ringer's 1,000 ML IV SCH (11:30)
--- NOTE | 2017-11-30 11:56 | CP.PCM.PN ---
Subjective - Date & Time of Evaluation Date of Evaluation: 11/30/17 Time of Evaluation: 11:56 - Subjective Subjective: PT co some epigastric pain today NPO for procedure awating transfer Objective - Vital Signs/Intake and Output Vital Signs (last 24 hours): Temp Pulse Resp BP Pulse Ox 97.5 F L 66 20 145/73 96 11/30/17 07:59 11/30/17 07:59 11/30/17 07:59 11/30/17 07:59 11/30/17 07:59 Intake and Output: 11/30/17 11/30/17 06:59 18:59 Intake Total 800 Balance 800 - Medications Medications: Current Medications Cholestyramine Resin (Questran) 4 gm PO BID [facility] Last Admin: 11/30/17 09:30 Dose: 4 gm Clopidogrel Bisulfate (Plavix) 75 mg PO DAILY [facility] Last Admin: 11/30/17 09:18 Dose: 75 mg Enoxaparin Sodium (Lovenox) 40 mg SC DAILY [facility] Last Admin: 11/30/17 09:17 Dose: 40 mg Famotidine (Pepcid) 20 mg IVP Q12 [facility] Glimepiride (Amaryl) 4 mg PO BID [facility] Last Admin: 11/30/17 09:19 Dose: Not Given Hydrochlorothiazide (Microzide) 12.5 mg PO DAILY [facility] Last Admin: 11/30/17 09:17 Dose: 12.5 mg Piperacillin Sod/Tazobactam Sod (Zosyn 3.375 Gm Iv Premix) 3.375 gm in 50 mls @ 100 mls/hr IVPB Q6H [facility] PRN Reason: Protocol Last Admin: 11/30/17 06:01 Dose: 100 mls/hr Lactated Ringer's (Lactated Ringer's) 1,000 mls @ 125 mls/hr IV .Q8H [facility] Insulin Aspart (Novolog) 0 unit SC ACHS [facility] PRN Reason: Protocol Last Admin: 11/30/17 07:58 Dose: Not Given Insulin Detemir (Levemir) 15 unit SC HS [facility] Levothyroxine Sodium (Synthroid) 112 mcg PO DAILY@0630 [facility] Last Admin: 11/30/17 06:02 Dose: 112 mcg Losartan Potassium (Cozaar) 50 mg PO DAILY [facility] Last Admin: 11/30/17 09:18 Dose: 50 mg Metformin HCl (Glucophage) 850 mg PO TID [facility] Last Admin: 11/30/17 09:19 Dose: Not Given Metoprolol Succinate (Toprol Xl) 50 mg PO DAILY [facility] Last Admin: 11/30/17 09:30 Dose: 50 mg Morphine Sulfate (Morphine) 2 mg IV Q8 PRN PRN Reason: Pain, Mild (1-3) - Labs Labs: 11/30/17 07:20 11/30/17 07:20 PT 12.6 SECONDS (9.7-12.2) H 11/27/17 15:20 INR 1.2 11/27/17 15:20 APTT 35 SECONDS (21-34) H 11/27/17 15:20 - Constitutional Appears: Non-toxic - ENT Exam ENT Exam: Mucous Membranes Moist - Cardiovascular Exam Cardiovascular Exam: REGULAR RHYTHM. absent: JVD - GI/Abdominal Exam GI & Abdominal Exam: Soft, Tenderness - Extremities Exam Extremities Exam: absent: Joint Swelling Assessment and Plan - Assessment and Plan (Free Text) Assessment: Awating transfer to [facility] pain ; added zantac added prn pain meds bp stable diabetes : insulin inreased will monitor
[2017-11-30 12:51] LABS: HAV AB (IGM) Nonreactive (Nonreactive)
[2017-11-30 17:58] VITALS: BP 136/65; PULSE 73; TEMP 98.2; O2SAT 95
[2017-11-30] MEDS ORDERED: Insulin Detemir 100 units/ml Vial (Levemir) SC SCH (22:00)
[2017-12-02 15:47] LABS: ANCA SCREEN NEGATIVE (NEGATIVE)
== END 2017-11-30 20:20 | disposition short-term general hospital (02) | DRG 435 ==
LOC: C.ER 13:35 → C.9E 18:33 → C.3T 21:13
PROVIDERS: ADMIT Internal Medicine; ATTEND Internal Medicine
PROC: 0FJB8ZZ Inspection of Hepatobiliary Duct, Via Natural or Artificial Opening Endoscopic (ICD-10-PCS; principal; 2017-11-30)
PROC: 0FJD8ZZ Inspection of Pancreatic Duct, Via Natural or Artificial Opening Endoscopic (ICD-10-PCS; 2017-11-30)
DX: D37.6 Neoplasm of uncertain behavior of liver, gallbladder and bile ducts (principal); K83.1 Obstruction of bile duct; K72.90 Hepatic failure, unspecified without coma; N28.1 Cyst of kidney, acquired; D35.02 Benign neoplasm of left adrenal gland; R79.89 Other specified abnormal findings of blood chemistry; I10 Essential (primary) hypertension; E11.9 Type 2 diabetes mellitus without complications; E03.9 Hypothyroidism, unspecified; K21.9 Gastro-esophageal reflux disease without esophagitis; L29.9 Pruritus, unspecified; Z90.49 Acquired absence of other specified parts of digestive tract; Z87.891 Personal history of nicotine dependence; Z79.4 Long term (current) use of insulin

== ENCOUNTER 2018-03-06 11:16 | Inpatient (IN) | payer MEDICARE, OTHER ==
[2018-03-06 11:23] VITALS: BMI 30.3
[2018-03-06] MEDS ORDERED: Sodium Chloride 0.9% 1,000 ML IV ONE ×3 (11:37→16:15)
--- NOTE | 2018-03-06 12:00 | C.PDOC ---
History Of Present Illness Patient is an 82 y/o female with PMHx of DM, HTN, severe dementia, and intrahepatic bile duct carcinoma, brought in via ambulance from assisted. Of note patient recently underwent biliary surgery at [facility] for cancer and has been in rehab. She presents today with complaints of abdominal pain, nausea, and vomiting. Time Seen by Provider: 03/06/18 11:24 Chief Complaint (Nursing): Abdominal Pain History Per: Family History/Exam Limitations: no limitations Onset/Duration Of Symptoms: Days Current Symptoms Are (Timing): Still Present Location Of Pain/Discomfort: Diffuse Quality Of Discomfort: Pressure Associated Symptoms: Nausea, Vomiting Additional History Per: Assisted, Prior Records Past Medical History Reviewed: Historical Data, Nursing Documentation, Vital Signs - Medical History PMH: Dementia, Diabetes, HTN, Hypothyroidism, Malignancy (intrahepatic bile duct carcinoma), Pancreatitis Surgical History: Cholecystectomy Other Surgeries: Biliary surgery - [facility] Procedures INSPECTION OF HEPATOBILIARY DUCT, ENDO (11/27/17) INSPECTION OF PANCREATIC DUCT, ENDO (11/27/17) Family History: States: Unknown Family Hx - Social History Hx Tobacco Use: No Hx Alcohol Use: No Hx Substance Use: No Review Of Systems Constitutional: Negative for: Fever Cardiovascular: Negative for: Chest Pain Respiratory: Negative for: Shortness of Breath Gastrointestinal: Positive for: Nausea, Vomiting, Abdominal Pain Neurological: Negative for: Weakness, Numbness Physical Exam - Physical Exam Appears: Non-toxic, In Acute Distress (mild distress, moaning in pain) Skin: Warm, Dry Head: Atraumatic, Normacephalic Eye(s): bilateral: Normal Inspection, PERRL, EOMI Oral Mucosa: Moist Neck: Normal ROM Chest: Symmetrical Cardiovascular: Rhythm Regular, No Murmur Respiratory: Normal Breath Sounds, No Rales, No Rhonchi, No Wheezing Gastrointestinal/Abdominal: Soft, Tenderness (diffuse abdominal tenderness), Distention (+ abdomen distended), Other (Red rubber tube to left side of abdomen family states it is PEG tube) Back: Normal Inspection, No CVA Tenderness Extremity: Bilateral: Atraumatic, Normal Color And Temperature Pulses: Left Dorsalis Pedis: Normal, Right Dorsalis Pedis: Normal Neurological/Psych: Other (Awake, Confused - at baseline per family) ED Course And Treatment - Laboratory Results Result Diagrams: 03/06/18 12:45 11/08/18 12:45 Lab Interpretation: Abnormal ECG: Interpreted By Me ECG Rhythm: Sinus Rhythm ECG Interpretation: No Acute Changes Rate From EC - Other Rad No standard instances X-Ray: Viewed By Me, Read By Radiologist Interpretation: HISTORY: Abd Pain. COMPARISON: Abdomen obstructive series 03/06/2018. TECHNIQUE: AP radiograph of the chest, with upright and supine radiographs of the abdomen. FINDINGS: CHEST: Suboptimal exposure to evaluate vascular markings and mid to upper lung zones. Lungs: Bibasilar interstitial infiltrates persist. Underlying alveolitis not excluded. Cardiovascular: Normal size heart. No pulmonary vascular congestion. No aortic atherosclerotic calcification present. Pleura: No pleural fluid. No pneumothorax. Other findings: None. ABDOMEN AND PELVIS: Bowel: There is a prominent distention of small and large bowel loops in a pattern suggestive of an ileus. No gross free intra peritoneal gas collection is identified. Distal large bowel obstruction unlikely. Surgical clips are identified the right upper quadrant abdomen once again. Free air: None. Bones: Unremarkable. Other findings: Tube is seen in the left lower quadrant abdomen. IMPRESSION: Likely ileus involving small large-bowel with distal large bowel obstruction unlikely. No gross free intra peritoneal gas collection. Left lower quadrant abdomen tubing noted. Lateral basilar interstitial infiltrates appreciated. Underlying alveolitis not excluded. Limited chest radiograph. - CT Scan/US CT abd/pelvis Other Rad Studies (CT/US): Read By Radiologist, Radiology Report Reviewed CT/US Interpretation: Accession No. : [id number]. Patient Name / ID : TALYA Roblero / [id number]. Exam Date : 03/06/2018 15:04:27 ( Approved ). Study Comment : Sex / Age : F / 82Y. Creator : Giselle Roldan. Dictator : Young Venegas MD. Six Pack Packer : Attendance Officer : Young Venegas MD. Approver2 : Report Date : 03/06/2018 15:11:13. My Comment : . Date of service: 03/06/2018. PROCEDURE: CT Abdomen and Pelvis without intravenous contrast. HISTORY: Pain. COMPARISON: Abdomen pelvis CT with contrast 11/27/2017. TECHNIQUE: Helical CT of the abdomen and pelvis was performed without oral or intravenous contrast as per referring physician vi landrum. Coronal and sagittal reformats were generated. Contrast dose: None. Radiation dose: Total exam DLP = 1076.01 mGy-cm. This CT exam was performed using one or more of the following dose reduction techniques: Automated exposure control, adjustment of the mA and/or kV according to patient size, and/or use of iterative reconstruction technique. FINDINGS: LOWER THORAX: Bilateral basilar infiltrates are identified bilaterally. Cardiomegaly is reiterated. LIVER: Unremarkable. No gross lesion or ductal dilatation. GALLBLADDER AND BILE DUCTS: Prior cholecystectomy. PANCREAS: A trophic pancreas identified without gross mass. SPLEEN: Unremarkable. ADRENALS: The right adrenal gland appears normal. The left adrenal gland harbor is a 2.5 cm nodule measuring 31 Hounsfield units. This may resent a benign adrenal adenoma but cannot be proven by the current study. Follow-up MRI without contrast is recommended for proper characterization. Metastatic lesion not excluded. KIDNEYS AND URETERS: No obstructive uropathy bilaterally. Nonspecific streaky perinephric changes are identified bilaterally once again. VASCULATURE: Please see bowel section below. Nonaneurysmal abdominal aortic calcific atherosclerotic changes are identified. BOWEL: Motion gastrointestinal tract is compromised by the lack of oral and intravenous contrast. However, there is enteric pneumatosis affecting small-bowel primarily at the left lower quadrant abdomen and left hemipelvis with limited gas identified in the nondependent periphery of the left hepatic lobe portal venous system. Venous gas identified within various veins within the central bowel mesentery and also the right flank portion of the mesentery as well. This is a pattern sales representative electric service of ischemic small bowel and cervical consultation is recommended. The stomach is mildly distend with retained fluid. Large and small bowel loops appear mildly dilated in a pattern that likely reflects an ileus. Distal large bowel obstruction unlikely. A jejunostomy tube is identified at the left lower quadrant entering through the left mari abdominal wall and terminating at the inferior left hemipelvis within a small bowel loop. Postoperative changes are identified potentially related to transverse colon. A wire like radiodensity is seen at the right upper quadrant potentially related to small bowel. APPENDIX: Not identified. No definitive pattern to suggest appendicitis. PERITONEUM: Trace ascites identified in the inferior abdomen and pelvis. No free intra peritoneal gas collection. LYMPH NODES: No significant lymphadenopathy. BLADDER: Urinary bladder is decompressed by Pisano catheter with limited gas in the lumen. REPRODUCTIVE: Unremarkable. BONES: No acute fracture. OTHER FINDINGS: None. IMPRESSION: 1. Findings most compatible with ischemic small bowel at the left mari abdomen and pelvis with extensive pneumatosis intestinalis, mesenteric venous gas and intrahepatic portal venous gas identified. Likely secondary bowel ileus present as discussed above. No definitive bowel obstruction identified. 2. Limited lower abdomen and pelvis ascites. 3. Prior cholecystectomy. 4. Additional postoperative changes upper abdomen of uncertain origin. 5. Left lower quadrant jejunostomy. 6. 2.5 cm left adrenal nodule of indeterminate etiology. Follow-up MRI without contrast is advised to exclude potential metastasis though this may simply represent a benign adrenal adenoma. Progress Note: Patient presented [facility] ED [facility] for abdominal pain. Abdomen distended. Treated with IVF NSS x 2 liters. Treated with pisano catheter. Treated with levaqyin and zosyn. Patient o2 sat 85% with NC, mask applied. Case discussed with Dr Cavazos gear repair supervisor who will evaluate patient for ICU. Dr Cavazos evaluated patient in ED and accepts for ICU. (3) amps of sodium bicarbonate ordered as per Dr Solo Cavazos. Treated with additional NSS - Physician Consult Information Physician Contacted: Delfina Cavazos Outcome Of Conversation: admit to ICU Critical Care Time - Critical Care Note Total Time (in mins): 30 Documented critical care: time excludes all time spent performing seperately billable procedures. Medical Decision Making Medical Decision Making: Impression: 82y/o female with abd pain, nausea, and vomiting Initial Plan: --VBG --EKG --CMP --Lipase --Troponin I --CBC --PTT/PT --Obstructive series x-ray --Blood cultures --Urinalysis --CT abd/pelvis --IVF hydration Labs reviewed. WBC elevated, 29.5. Lactic acid critically elevated at 13. Discussed case with Dr. Adelina Cavazos, patient accepted for admission for sepsis and abdominal pain. Still pending CT scan reading. Paged gear repair supervisor, Dr. Solo Cavazos, who will evaluate patient in the ED for ICU consult. 13:37 Dr. Solo Cavazos at bedside, evaluated patient and accepts to ICU. Disposition Counseled Patient/Family Regarding: Studies Performed, Diagnosis - Disposition Disposition: HOSPITALIZED Disposition Time: 13:39 Condition: CRITICAL - POA Present On Arrival: None - Clinical Impression Clinical Impression: Abdominal pain, Sepsis - PA / BUSINESS CONTROLLER / Resident Statement MD/DO has reviewed & agrees with the documentation as recorded. - Scribe Statement The provider has reviewed the documentation as recorded by the Scribe (Nicki Yao) All medical record entries made by the Scribe were at my direction and personally dictated by me. I have reviewed the chart and agree that the record accurately reflects my personal performance of the history, physical exam, medical decision making, and the department course for this patient. I have also personally directed, reviewed, and agree with the discharge instructions and disposition. Decision To Admit - Pt Status Changed To: Hospital Disposition Of: Inpatient - Admit Certification Admit to Inpatient:: After my assessment, the patient will require hospitalization for at least two midnights. This is because of the severity of symptoms shown, intensity of services needed, and/or the medical risk in this patient being treated as an outpatient. - InPatient: Physician Admission Certification:: Sepsis - . Bed Request Type: ICU Admitting Physician: Delfina Cavazos Patient Diagnosis: Abdominal pain, Sepsis
[2018-03-06 12:34] LABS: SQUAMOUS EPITHIAL < 1 /hpf (0-5); URINE BACTERIA RARE (<OCC); URINE BILIRUBIN NEGATIVE (NEGATIVE); URINE BLOOD NEGATIVE (NEGATIVE); URINE CLARITY Clear (Clear); URINE COLOR Amber (YELLOW); URINE GLUCOSE (UA) 2+ mg/dL (Normal); URINE LEUKOCYTE ESTERASE NEG Leu/uL (Negative); URINE PROTEIN 1+ mg/dL (NEGATIVE); URINE UROBILINOGEN NORMAL mg/dL (0.2-1.0)
[2018-03-06 12:48] LABS: BASO # 0.1 K/uL (0.0-0.2); BASO % 0.3 % (0.0-2.0); EOS % 0.1 % (0.0-4.0); HEMOGLOBIN 11.1 g/dL (11.0-16.0); LYMPH # 2.6 K/uL (1.0-4.3); LYMPH % 8.8 % (20.0-40.0); MEAN CORPUSCULAR HEMOGLOBIN 31.7 pg (27.0-31.0); MEAN CORPUSCULAR HGB CONC 31.2 g/dL (33.0-37.0); MEAN PLATELET VOLUME 8.1 fL (7.2-11.7); MONO # 0.8 K/uL (0.0-0.8); MONO % 2.7 % (0.0-10.0); NEUT # 25.9 K/uL (1.8-7.0); NEUT % 88.1 % (50.0-75.0); NRBC % 0.1 % (0.0-2.0)
[2018-03-06 12:50] LABS: MEAN CELL VOLUME 101.6 fL (81.0-99.0); PLATELET COUNT 679 K/uL (130-400); WHITE BLOOD COUNT 29.5 K/uL (4.8-10.8)
[2018-03-06] MEDS ORDERED: Piperacillin/Tazobact 3.375 gm 100 ML IV STA ×2 (12:52→12:53)
[2018-03-06 12:53] LABS: INR 1.2; PROTHROMBIN TIME 13.3 SECONDS (9.7-12.2)
[2018-03-06] MEDS ORDERED: Vancomycin 1 GM 1 GM/250 ML BAG IV SCH (13:00)
[2018-03-06 13:17] LABS: VENOUS BLOOD GAS BASE EXCESS -24.3 mmol/L (0.0-2.0); VENOUS BLOOD GAS PCO2 43 mmHg (40-60); VENOUS BLOOD GAS PO2 25 mm/Hg (30-55)
[2018-03-06 13:30] LABS: ALB/GLOB RATIO 0.9 (1.0-2.1); ALBUMIN 2.9 g/dL (3.5-5.0); ALT/SGPT 20 U/L (9-52); AST/SGOT 52 U/L (14-36); BLOOD UREA NITROGEN 23 mg/dL (7-17); CALCIUM 9.6 mg/dl (8.6-10.4); GFR NON-AFRICAN AMERICAN > 60; LIPASE 39 U/L (23-300)
[2018-03-06] MEDS ORDERED: Piperacillin/Tazobact 3.375 gm 100 ML IVPB ONE (13:47)
[2018-03-06] MEDS ORDERED: Vancomycin 1 GM 1 GM/250 ML BAG IVPB ONE (13:48)
[2018-03-06] MEDS ORDERED: Sodium Bicarbonate (8.4%) 50 Meq Syringe IVP ONE ×3 (13:49→13:50)
[2018-03-06] MEDS ORDERED: Sodium Bicarbonate (8.4%) 50 Meq Syringe ONE ×4 (13:54→16:06)
[2018-03-06] MEDS ORDERED: Naloxone 0.4 mg/ml Inj (Adult) ONE (14:14)
[2018-03-06 14:16] LABS: BANDS 29 % (0-2); LYMPHOCYTE 8 % (20-40); MONOCYTE 1 % (0-10); MYELOCYTE 1 % (0-0); NEUTROPHIL 61 % (50-75); PLATELET ESTIMATE MARKEDLY INCREASED (NORMAL); TOTAL CELLS COUNTED 100
[2018-03-06 14:17] LABS: LARGE PLATELETS PRESENT; PLATELET CLUMPS PRESENT
[2018-03-06] MEDS ORDERED: Naloxone 0.4 mg/ml Inj (Adult) IVP ONE ×2 (14:17→14:18)
--- NOTE | 2018-03-06 14:21 | RAD ---
Date of service: 03/06/2018 PROCEDURE: Radiographs of the chest and abdomen (obstructive series) HISTORY: Abd Pain COMPARISON: Abdomen obstructive series 03/06/2018. TECHNIQUE: AP radiograph of the chest, with upright and supine radiographs of the abdomen. FINDINGS: CHEST: Suboptimal exposure to evaluate vascular markings and mid to upper lung zones. Lungs: Bibasilar interstitial infiltrates persist. Underlying alveolitis not excluded. Cardiovascular: Normal size heart. No pulmonary vascular congestion. No aortic atherosclerotic calcification present Pleura: No pleural fluid. No pneumothorax. Other findings: None. ABDOMEN AND PELVIS: Bowel: There is a prominent distention of small and large bowel loops in a pattern suggestive of an ileus. No gross free intra peritoneal gas collection is identified. Distal large bowel obstruction unlikely. Surgical clips are identified the right upper quadrant abdomen once again. Free air: None. Bones: Unremarkable. Other findings: Tube is seen in the left lower quadrant abdomen. IMPRESSION: Likely ileus involving small large-bowel with distal large bowel obstruction unlikely. No gross free intra peritoneal gas collection. Left lower quadrant abdomen tubing noted. Lateral basilar interstitial infiltrates appreciated. Underlying alveolitis not excluded. Limited chest radiograph.
[2018-03-06] MEDS ORDERED: Glucagon Recombinant 1 mg Inj IM PRN (15:02)
[2018-03-06] MEDS ORDERED: Dextrose 50% SYRINGE Inj (50 ml) IV PRN (15:02)
--- NOTE | 2018-03-06 15:11 | CP.PCM.CON ---
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 In the ED, she is lethargic, shallow respirations. Found to be hypotensive (SBP 70-80s). A fentanyl patch was found on the patient. Patient was given fluids, bicarb, and Narcan and placed on nonrebreather. patient became more responsive after second dose of Narcan. A TLC was plave din the R femoral vein. PMH: Intrahepatic bile duct carcinoma- recent Whipple at [facility] Cholecystectomy years ago Dementia T2DM HTN Hypothyroidism Meds: Levothyroxine 112 mcg PO daily Donepezil 10 mg PO daily Seroquel 12.5 mg PO QHS Reglan 1 mg PO AC Pro-Stat 30 mL PO TID Zofran 4 mg PO Q6H PRN Maalox 30 mL PO Q4H PRN MV PO daily Remeron 15 mg PO QHS Metoprolol 50 mg PO daily Megace 10 mL PO daily Lantus 20 units QHS Fentanyl 12 mcg/hr patch Q72H Gabapentin 100 mg PO QHS Lovenox 40 mg SC daily All: ASA FH: unable to obtain SH: Presently at snf Denies smoking history Review of Systems - Review of Systems Systems not reviewed;Unavailable: Acuity of Condition, Respiratory Distress Past Patient History - Infectious Disease Hx of Infectious Diseases: C.diff - Past Medical History & Family History Past Medical History?: Yes - Past Social History Smoking Status: Former Smoker Chewing Tobacco Use: No Cigar Use: No Alcohol: None Drugs: Denies Home Situation {Lives}: Usp - CARDIAC Hx Hypertension: Yes - PULMONARY Hx Respiratory Disorders: Yes (DYSPNEA ON EXERTION) - NEUROLOGICAL Hx Dementia: Yes - HEENT Hx HEENT Problems: Yes Hx Cataracts: Yes - RENAL Hx Chronic Kidney Disease: No - ENDOCRINE/METABOLIC Hx Hypothyroidism: Yes - HEMATOLOGICAL/ONCOLOGICAL Hx Blood Disorders: Yes Hx Cancer: Yes (Intrahepatic bile duct carcinoma) - INTEGUMENTARY Hx Dermatological Problems: No - MUSCULOSKELETAL/RHEUMATOLOGICAL Hx Falls: No - GASTROINTESTINAL Hx Pancreatitis: Yes - GENITOURINARY/GYNECOLOGICAL Hx Genitourinary Disorders: No - PSYCHIATRIC Hx Substance Use: No - SURGICAL HISTORY Hx Cholecystectomy: Yes - ANESTHESIA Hx Anesthesia: Yes Hx Anesthesia Reactions: No Hx Malignant Hyperthermia: No Meds Allergies/Adverse Reactions: Allergies Allergy/AdvReac Type Severity Reaction Status Date / Time aspirin Allergy Intermediate SHORTNESS Verified 06/02/15 10:12 OF BREATH honey AdvReac SHORTNESS Verified 03/07/18 09:25 OF BREATH honey AdvReac SHORTNESS Uncoded 03/07/18 09:25 OF BREATH - Medications Medications: Current Medications Vancomycin HCl (Vancomycin 1gm In Normal Saline Addvantage) 1 gm in 250 mls @ 166.667 mls/hr IV STAT ARPIT; Protocol Norepinephrine Bitartrate 4 mg (/ Sodium Chloride) 254 mls @ 15.24 mls/hr IV .[id number] PRN; Protocol PRN Reason: TITRATE PER MD ORDER Piperacillin Sod/Tazobactam (Sod 3.375 gm/ Sodium Chloride) 100 mls @ 200 mls/hr IVPB Q6H ARPIT; Protocol Sodium Bicarbonate 75 meq/ (Sodium Chloride) 1,075 mls @ 100 mls/hr IV .[id number] ARPIT Naloxone HCl (Narcan) 0.4 mg IVP ONCE ONE Stop: 03/06/18 14:18 Naloxone HCl (Narcan) 0.4 mg IVP ONCE ONE Stop: 03/06/18 14:19 Physical Exam - Constitutional Appears: In Acute Distress - Head Exam Head Exam: ATRAUMATIC - Eye Exam Eye Exam: EOMI, Normal appearance, PERRL - ENT Exam ENT Exam: Mucous Membranes Dry - Respiratory Exam Respiratory Exam: Respiratory Distress - Cardiovascular Exam Cardiovascular Exam: Tachycardia, REGULAR RHYTHM - GI/Abdominal Exam GI & Abdominal Exam: Distended, Firm, Guarding, Tenderness - Neurological Exam Neurological exam: Alert Additional comments: oriented to person only - Psychiatric Exam Psychiatric exam: Anxious Results - Vital Signs Recent Vital Signs: Last Vital Signs Temp 99.3 F 03/06/18 14:30 Pulse 97 H 03/06/18 14:30 Resp 26 H 03/06/18 14:30 BP 100/62 03/06/18 14:30 Pulse Ox 95 03/06/18 14:30 - Labs Result Diagrams: 03/06/18 17:33 03/06/18 17:33 Labs: Laboratory Results - last 24 hr 03/06/18 03/06/18 03/06/18 12:18 12:45 12:45 WBC 29.5 H D RBC 3.50 L Hgb 11.1 Hct 35.5 MCV 101.6 H D MCH 31.7 H MCHC 31.2 L RDW 18.0 H Plt Count 679 H D MPV 8.1 Neut % (Auto) 88.1 H Lymph % (Auto) 8.8 L [place] % (Auto) 2.7 Eos % (Auto) 0.1 Baso % (Auto) 0.3 Neut # (Auto) 25.9 H Lymph # (Auto) 2.6 [place] # (Auto) 0.8 Eos # (Auto) 0.0 Baso # (Auto) 0.1 Neutrophils % (Manual) 61 Band Neutrophils % 29 H* Lymphocytes % (Manual) 8 L Monocytes % (Manual) 1 Myelocytes % 1 H Platelet Estimate Markedly increased H Plt Clumps, EDTA Present Large Platelets Present Macrocytosis (manual) Slight PT INR pO2 VBG pH VBG pCO2 VBG HCO3 VBG Total CO2 VBG O2 Sat (Calc) VBG Base Excess VBG Potassium Glucose Lactate Sodium 136 Potassium 5.8 H Chloride 106 Carbon Dioxide 8 L* D Anion Gap 27 H BUN 23 H Creatinine 0.9 Est GFR ( Amer) > 60 Est GFR (Non-Af Amer) > 60 POC Glucose (mg/dL) Random Glucose 353 H Calcium 9.6 Total Bilirubin 1.3 AST 52 H D ALT 20 Alkaline Phosphatase 154 H D Troponin I < 0.0120 Total Protein 6.2 L Albumin 2.9 L Globulin 3.3 Albumin/Globulin Ratio 0.9 L Lipase 39 Venous Blood Potassium Urine Color [place] Urine Clarity Clear Urine pH 5.0 Ur Specific [place] 1.024 Urine Protein 1+ H Urine Glucose (UA) 2+ H Urine Ketones Trace Urine Blood Negative Urine Nitrate Negative Urine Bilirubin Negative Urine Urobilinogen Normal Ur Leukocyte Esterase Neg Urine WBC (Auto) 4 Urine RBC (Auto) 2 Ur Squamous Epith Cells < 1 Urine Bacteria Rare Hyaline Casts 6-10 H 03/06/18 03/06/18 03/06/18 12:45 13:11 14:13 WBC RBC Hgb Hct MCV MCH MCHC RDW Plt Count MPV Neut % (Auto) Lymph % (Auto) [place] % (Auto) Eos % (Auto) Baso % (Auto) Neut # (Auto) Lymph # (Auto) [place] # (Auto) Eos # (Auto) Baso # (Auto) Neutrophils % (Manual) Band Neutrophils % Lymphocytes % (Manual) Monocytes % (Manual) Myelocytes % Platelet Estimate Plt Clumps, EDTA Large Platelets Macrocytosis (manual) PT 13.3 H INR 1.2 pO2 25 L VBG pH 6.90 L* VBG pCO2 43 VBG HCO3 3.7 VBG Total CO2 9.7 L VBG O2 Sat (Calc) 29.4 L VBG Base Excess -24.3 L VBG Potassium 5.2 Glucose 306 H Lactate 13.5 H* Sodium 139.0 Potassium Chloride 107.0 Carbon Dioxide Anion Gap BUN Creatinine Est GFR ( Amer) Est GFR (Non-Af Amer) POC Glucose (mg/dL) 266 H Random Glucose Calcium Total Bilirubin AST ALT Alkaline Phosphatase Troponin I Total Protein Albumin Globulin Albumin/Globulin Ratio Lipase Venous Blood Potassium 5.2 Urine Color Urine Clarity Urine pH Ur Specific [place] Urine Protein Urine Glucose (UA) Urine Ketones Urine Blood Urine Nitrate Urine Bilirubin Urine Urobilinogen Ur Leukocyte Esterase Urine WBC (Auto) Urine RBC (Auto) Ur Squamous Epith Cells Urine Bacteria Hyaline Casts Assessment & Plan - Assessment and Plan (Free Text) Assessment: Patient is an 82 yo female with a 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 She has been in a snf for approximately 2 months. She presented to ED today with nausea, vomiting, abdominal pain, and lethargy. CT A/P demonstrated ischemic bowel. Surgery was consulted. After discussion with family, will take to OR tonight. Plan: Neuro: - Lethargy - Monitor mental status CV: - R femoral TLC - Levophed drip - Monitor vitals Pulm: - ABG on admission: pH 7.12, pCO2 33, pO2 39 - ABG repeat: pH 7.23, pCO2 25, pO2 94 - Maintain spO2>92%- supplemental O2 PRN, on non-rebreather GI: - NPO - CT A/P: ischemis small bowel, extensive pneumatosis intestinalis, mesenteric venous gas, intrahepatic portal venous gas, ascites - C. diff pending - GI consulted (Patricia) - Surgery consulted (Fortino)- OR tonight : - I's & O's - Replete electrolytes PRN - Bicarb amp x4 - Sodium bicarb 75 mEq in 1/2NS @ 100 mL/hr Endo: - Maintain euglycemia - Hypoglycemia protocol Heme: - Monitor H&H - Monitor PT/INR/PTT - Hem/onc consulted (Pritesh) ID: Septic shock - Code sepsis - LA 13.5->12.7->11.4 - Leukocytosis worsening (29.5->34.8)- 32 bands - UDS negative - Aggressive IVF- NS and LR - Zosyn, Vanco PPx: VTE: pre-op GI: pre-op Code status: full code Case discussed with attending, Dr. Magdalene Dixon. PGY-1 Emy Morse D.O. <Loree Dixon - Last Filed: 03/07/18 17:04> Meds - Medications Medications: Current Medications Albumin Human (Albumin Human 25% (12.5 Gm/50 Ml)) 25 gm IV Q6H ARPIT Stop: 03/08/18 10:01 Dextrose (Dextrose 50% Inj) 0 ml IV STAT PRN; Protocol PRN Reason: Hypoglycemia Protocol Dextrose (Glutose 15) 0 gm PO ONCE PRN; Protocol PRN Reason: Hypoglycemia Protocol Glucagon (Glucagen Diagnostic Kit) 0 mg IM STAT PRN; Protocol PRN Reason: Hypoglycemia Protocol Dextrose (Dextrose 5% In Water 1000 Ml) 1,000 mls @ 0 mls/hr IV .Q0M PRN; Protocol PRN Reason: Hypoglycemia Protocol Norepinephrine Bitartrate 8 mg (/ Sodium Chloride) 508 mls @ 15.24 mls/hr IV .Q24H PRN; Protocol PRN Reason: TITRATE PER MD ORDER Last Titration: 03/07/18 14:23 Dose: 7 mcg/min, 26.67 mls/hr Heparin Sodium/Sodium Chloride (Heparin 02287 Units/250ml 1/2 Normal Saline) 25,000 units in 250 mls @ 9.253 mls/hr IV .Q24H PRN; Protocol PRN Reason: PROTOCOL Last Titration: 03/07/18 04:00 Dose: 6 units/kg/hr, 4.627 mls/hr Fentanyl Citrate 2,500 mcg/ (Sodium Chloride) 250 mls @ 15.42 mls/hr IV .[id number] PRN; Protocol Last Titration: 03/07/18 12:46 Dose: 3 mcg/kg/hr, 23.13 mls/hr Meropenem 1 gm/ Sodium (Chloride) 100 mls @ 100 mls/hr IVPB Q8H ARPIT; Protocol Last Admin: 03/07/18 16:14 Dose: 100 mls/hr Sodium Bicarbonate 75 meq/ (Sodium Chloride) 1,075 mls @ 100 mls/hr IV .[id number] ARPIT Last Admin: 03/07/18 16:12 Dose: 100 mls/hr Aztreonam 1 gm/ Sodium (Chloride) 100 mls @ 200 mls/hr IVPB Q8H ARPIT; Protocol Last Admin: 03/07/18 14:18 Dose: 200 mls/hr Vasopressin 40 units/ Sodium (Chloride) 42 mls @ 2.52 mls/hr IV .[id number] ARPIT; Protocol Last Admin: 03/07/18 12:42 Dose: 0.04 units/min, 2.52 mls/hr Sodium Bicarbonate 175 meq/ (Dextrose) 1,000 mls @ 100 mls/hr IV .Q10H ARPIT Last Admin: 03/07/18 16:12 Dose: 100 mls/hr Insulin Aspart (Novolog) 0 unit SC Q6H ARPIT; Protocol Last Admin: 03/07/18 13:58 Dose: 1 unit Pantoprazole Sodium (Protonix Inj) 40 mg IVP Q12H ARPIT Last Admin: 03/07/18 11:00 Dose: 40 mg Results - Vital Signs Recent Vital Signs: Last Vital Signs Temp 99.8 F H 03/07/18 16:45 Pulse 89 03/07/18 16:45 Resp 20 03/07/18 16:45 BP 106/46 L 03/07/18 16:45 Pulse Ox 98 03/07/18 16:40 - Labs Result Diagrams: 03/07/18 11:14 03/07/18 05:04 Labs: Laboratory Results - last 24 hr 03/06/18 03/06/18 03/06/18 17:33 17:33 17:33 WBC RBC Hgb Hct MCV MCH MCHC RDW Plt Count MPV Neut % (Auto) Lymph % (Auto) [place] % (Auto) Eos % (Auto) Baso % (Auto) Neut # (Auto) Lymph # (Auto) [place] # (Auto) Eos # (Auto) Baso # (Auto) Neutrophils % (Manual) Band Neutrophils % Lymphocytes % (Manual) Monocytes % (Manual) Platelet Estimate Large Platelets Polychromasia Microcytosis (manual) PT INR APTT Puncture Site pCO2 pO2 HCO3 ABG pH ABG Total CO2 ABG O2 Saturation ABG Base Excess Michele Test ABG Potassium A-a O2 Difference Respiratory Index Glucose Lactate Vent Mode Mechanical Rate FiO2 Tidal Volume PEEP Crit Value Called To Crit Value Called By Crit Value Read Back Blood Gas Notified Time Sodium 142 Potassium 4.0 Chloride 112 H Carbon Dioxide 13 L Anion Gap 22 H BUN 18 H Creatinine 0.6 L Est GFR ( Amer) > 60 Est GFR (Non-Af Amer) > 60 POC Glucose (mg/dL) Random Glucose 153 H Hemoglobin A1c 6.9 H Lactic Acid Calcium 7.4 L Phosphorus 5.0 H Magnesium 1.5 L Total Bilirubin 1.3 AST 96 H D ALT 40 Alkaline Phosphatase 88 Total Creatine Kinase CK-MB (Mass) Troponin I < 0.0120 NT-Pro-B Natriuret Pep 4330 H Total Protein 4.1 L Albumin 1.7 L D Globulin 2.4 Albumin/Globulin Ratio 0.7 L Amylase 32 Lipase 32 TSH 3rd Generation 7.32 H Plasma Cortisol PM 51.9 H Arterial Blood Potassium Random Vancomycin B-Hydroxybutyrate 0.37 H Blood Type Blood Type Confirm Antibody Screen 03/06/18 03/06/18 03/06/18 17:33 17:34 18:52 WBC 34.8 H RBC 2.53 L Hgb 7.9 L D Hct 24.9 L MCV 98.6 D MCH 31.1 H MCHC 31.5 L RDW 17.0 H Plt Count 469 H D MPV 7.9 Neut % (Auto) 88.2 H Lymph % (Auto) 7.5 L [place] % (Auto) 4.1 Eos % (Auto) 0.0 Baso % (Auto) 0.2 Neut # (Auto) 30.7 H Lymph # (Auto) 2.6 [place] # (Auto) 1.4 H Eos # (Auto) 0.0 Baso # (Auto) 0.1 Neutrophils % (Manual) 46 L Band Neutrophils % 32 H* Lymphocytes % (Manual) 11 L Monocytes % (Manual) 11 H Platelet Estimate Normal Large Platelets Present Polychromasia Slight Microcytosis (manual) Slight PT INR APTT Puncture Site Lr pCO2 25 L pO2 94 HCO3 12.9 L ABG pH 7.23 L ABG Total CO2 11.3 L ABG O2 Saturation 99.9 H ABG Base Excess -15.3 L Michele Test Unable ABG Potassium 3.4 L A-a O2 Difference 231.0 Respiratory Index 2.5 Glucose 153 H Lactate 11.4 H* Vent Mode Mechanical Rate FiO2 50.0 Tidal Volume PEEP Crit Value Called To Dr dixon Crit Value Called By Justice lee Crit Value Read Back Y Blood Gas Notified Time 1737 Sodium 146.0 Potassium Chloride 118.0 H Carbon Dioxide Anion Gap BUN Creatinine Est GFR ( Amer) Est GFR (Non-Af Amer) POC Glucose (mg/dL) Random Glucose Hemoglobin A1c Lactic Acid Calcium Phosphorus Magnesium Total Bilirubin AST ALT Alkaline Phosphatase Total Creatine Kinase CK-MB (Mass) Troponin I NT-Pro-B Natriuret Pep Total Protein Albumin Globulin Albumin/Globulin Ratio Amylase Lipase TSH 3rd Generation Plasma Cortisol PM Arterial Blood Potassium 3.4 L Random Vancomycin B-Hydroxybutyrate Blood Type A POSITIVE Blood Type Confirm A POSITIVE Antibody Screen Negative 03/06/18 03/06/18 03/06/18 19:23 19:52 21:59 WBC RBC Hgb Hct MCV MCH MCHC RDW Plt Count MPV Neut % (Auto) Lymph % (Auto) [place] % (Auto) Eos % (Auto) Baso % (Auto) Neut # (Auto) Lymph # (Auto) [place] # (Auto) Eos # (Auto) Baso # (Auto) Neutrophils % (Manual) Band Neutrophils % Lymphocytes % (Manual) Monocytes % (Manual) Platelet Estimate Large Platelets Polychromasia Microcytosis (manual) PT INR APTT Puncture Site pCO2 pO2 HCO3 ABG pH ABG Total CO2 ABG O2 Saturation ABG Base Excess Michele Test ABG Potassium A-a O2 Difference Respiratory Index Glucose Lactate Vent Mode Mechanical Rate FiO2 Tidal Volume PEEP Crit Value Called To Crit Value Called By Crit Value Read Back Blood Gas Notified Time Sodium Potassium Chloride Carbon Dioxide Anion Gap BUN Creatinine Est GFR ( Amer) Est GFR (Non-Af Amer) POC Glucose (mg/dL) 191 H 162 H Random Glucose Hemoglobin A1c Lactic Acid 12.5 H* Calcium Phosphorus Magnesium Total Bilirubin AST ALT Alkaline Phosphatase Total Creatine Kinase CK-MB (Mass) Troponin I NT-Pro-B Natriuret Pep Total Protein Albumin Globulin Albumin/Globulin Ratio Amylase Lipase TSH 3rd Generation Plasma Cortisol PM Arterial Blood Potassium Random Vancomycin B-Hydroxybutyrate Blood Type Blood Type Confirm Antibody Screen 03/06/18 03/06/18 03/07/18 22:02 23:48 02:06 WBC RBC Hgb Hct MCV MCH MCHC RDW Plt Count MPV Neut % (Auto) Lymph % (Auto) [place] % (Auto) Eos % (Auto) Baso % (Auto) Neut # (Auto) Lymph # (Auto) [place] # (Auto) Eos # (Auto) Baso # (Auto) Neutrophils % (Manual) Band Neutrophils % Lymphocytes % (Manual) Monocytes % (Manual) Platelet Estimate Large Platelets Polychromasia Microcytosis (manual) PT 17.1 H INR 1.6 APTT 165 H* Puncture Site Tserign pCO2 38 pO2 116 H HCO3 11.6 L ABG pH 7.10 L* ABG Total CO2 13.0 L ABG O2 Saturation 99.2 H ABG Base Excess -17.1 L Michele Test Na ABG Potassium 3.7 A-a O2 Difference 264.0 Respiratory Index 2.3 Glucose 154 H Lactate 10.7 H* Vent Mode Prvc Mechanical Rate 12 FiO2 60.0 Tidal Volume 450 PEEP 5 Crit Value Called To Dr. jackson Crit Value Called By Justice lee Crit Value Read Back Y Blood Gas Notified Time 2205 Sodium 144.0 Potassium Chloride 114.0 H Carbon Dioxide Anion Gap BUN Creatinine Est GFR ( Amer) Est GFR (Non-Af Amer) POC Glucose (mg/dL) 144 H Random Glucose Hemoglobin A1c Lactic Acid Calcium Phosphorus Magnesium Total Bilirubin AST ALT Alkaline Phosphatase Total Creatine Kinase CK-MB (Mass) Troponin I NT-Pro-B Natriuret Pep Total Protein Albumin Globulin Albumin/Globulin Ratio Amylase Lipase TSH 3rd Generation Plasma Cortisol PM Arterial Blood Potassium 3.7 Random Vancomycin B-Hydroxybutyrate Blood Type Blood Type Confirm Antibody Screen 03/07/18 03/07/18 03/07/18 05:04 05:04 05:04 WBC 24.7 H RBC 3.19 L Hgb 9.7 L Hct 29.5 L MCV 92.2 D MCH 30.4 MCHC 33.0 RDW 17.2 H Plt Count 396 MPV 7.8 Neut % (Auto) 84.7 H Lymph % (Auto) 10.4 L [place] % (Auto) 4.6 Eos % (Auto) 0.2 Baso % (Auto) 0.1 Neut # (Auto) 21.0 H Lymph # (Auto) 2.6 [place] # (Auto) 1.1 H Eos # (Auto) 0.1 Baso # (Auto) 0.0 Neutrophils % (Manual) Band Neutrophils % Lymphocytes % (Manual) Monocytes % (Manual) Platelet Estimate Large Platelets Polychromasia Microcytosis (manual) PT 16.9 H INR 1.5 APTT 72 H D Puncture Site pCO2 pO2 HCO3 ABG pH ABG Total CO2 ABG O2 Saturation ABG Base Excess Michele Test ABG Potassium A-a O2 Difference Respiratory Index Glucose Lactate Vent Mode Mechanical Rate FiO2 Tidal Volume PEEP Crit Value Called To Crit Value Called By Crit Value Read Back Blood Gas Notified Time Sodium 143 Potassium 4.0 Chloride 110 H Carbon Dioxide 20 L Anion Gap 18 BUN 22 H Creatinine 0.7 Est GFR ( Amer) > 60 Est GFR (Non-Af Amer) > 60 POC Glucose (mg/dL) Random Glucose 160 H Hemoglobin A1c Lactic Acid Calcium 7.6 L Phosphorus 4.1 Magnesium 1.5 L Total Bilirubin 3.8 H AST 218 H D ALT 93 H D Alkaline Phosphatase 89 Total Creatine Kinase CK-MB (Mass) Troponin I NT-Pro-B Natriuret Pep Total Protein 5.1 L Albumin 2.8 L D Globulin 2.3 Albumin/Globulin Ratio 1.2 Amylase Lipase TSH 3rd Generation Plasma Cortisol PM Arterial Blood Potassium Random Vancomycin B-Hydroxybutyrate Blood Type Blood Type Confirm Antibody Screen 03/07/18 03/07/18 03/07/18 05:30 05:43 11:14 WBC RBC Hgb Hct MCV MCH MCHC RDW Plt Count MPV Neut % (Auto) Lymph % (Auto) [place] % (Auto) Eos % (Auto) Baso % (Auto) Neut # (Auto) Lymph # (Auto) [place] # (Auto) Eos # (Auto) Baso # (Auto) Neutrophils % (Manual) Band Neutrophils % Lymphocytes % (Manual) Monocytes % (Manual) Platelet Estimate Large Platelets Polychromasia Microcytosis (manual) PT INR APTT 48 H D Puncture Site A-line pCO2 28 L pO2 116 H HCO3 22.9 ABG pH 7.46 H ABG Total CO2 20.8 L ABG O2 Saturation 99.8 H ABG Base Excess -2.6 L Michele Test Na ABG Potassium 3.8 A-a O2 Difference 277.0 Respiratory Index 2.4 Glucose 167 H Lactate 5.9 H* Vent Mode Prvc Mechanical Rate 15 FiO2 60.0 Tidal Volume 450 PEEP 5 Crit Value Called To [facility] agricultural loan officer Crit Value Called By Tracey gibson rt Crit Value Read Back Y Blood Gas Notified Time 550 Sodium 144.0 Potassium Chloride 115.0 H Carbon Dioxide Anion Gap BUN Creatinine Est GFR ( Amer) Est GFR (Non-Af Amer) POC Glucose (mg/dL) 169 H Random Glucose Hemoglobin A1c Lactic Acid Calcium Phosphorus Magnesium Total Bilirubin AST ALT Alkaline Phosphatase Total Creatine Kinase CK-MB (Mass) Troponin I NT-Pro-B Natriuret Pep Total Protein Albumin Globulin Albumin/Globulin Ratio Amylase Lipase TSH 3rd Generation Plasma Cortisol PM Arterial Blood Potassium 3.8 Random Vancomycin B-Hydroxybutyrate Blood Type Blood Type Confirm Antibody Screen 03/07/18 03/07/18 03/07/18 11:14 11:14 11:14 WBC 14.3 H RBC 2.86 L Hgb 8.8 L Hct 26.4 L MCV 92.2 MCH 30.8 MCHC 33.4 RDW 17.9 H Plt Count 348 MPV 7.8 Neut % (Auto) Lymph % (Auto) [place] % (Auto) Eos % (Auto) Baso % (Auto) Neut # (Auto) Lymph # (Auto) [place] # (Auto) Eos # (Auto) Baso # (Auto) Neutrophils % (Manual) Band Neutrophils % Lymphocytes % (Manual) Monocytes % (Manual) Platelet Estimate Large Platelets Polychromasia Microcytosis (manual) PT INR APTT Puncture Site pCO2 pO2 HCO3 ABG pH ABG Total CO2 ABG O2 Saturation ABG Base Excess Michele Test ABG Potassium A-a O2 Difference Respiratory Index Glucose Lactate Vent Mode Mechanical Rate FiO2 Tidal Volume PEEP Crit Value Called To Crit Value Called By Crit Value Read Back Blood Gas Notified Time Sodium Potassium Chloride Carbon Dioxide Anion Gap BUN Creatinine Est GFR ( Amer) Est GFR (Non-Af Amer) POC Glucose (mg/dL) Random Glucose Hemoglobin A1c Lactic Acid 5.1 H* Calcium Phosphorus Magnesium Total Bilirubin AST ALT Alkaline Phosphatase Total Creatine Kinase CK-MB (Mass) Troponin I NT-Pro-B Natriuret Pep Total Protein Albumin Globulin Albumin/Globulin Ratio Amylase Lipase TSH 3rd Generation Plasma Cortisol PM Arterial Blood Potassium Random Vancomycin 5.3 B-Hydroxybutyrate Blood Type Blood Type Confirm Antibody Screen 03/07/18 03/07/18 03/07/18 11:53 14:39 14:39 WBC RBC Hgb Hct MCV MCH MCHC RDW Plt Count MPV Neut % (Auto) Lymph % (Auto) [place] % (Auto) Eos % (Auto) Baso % (Auto) Neut # (Auto) Lymph # (Auto) [place] # (Auto) Eos # (Auto) Baso # (Auto) Neutrophils % (Manual) Band Neutrophils % Lymphocytes % (Manual) Monocytes % (Manual) Platelet Estimate Large Platelets Polychromasia Microcytosis (manual) PT INR APTT Puncture Site pCO2 pO2 HCO3 ABG pH ABG Total CO2 ABG O2 Saturation ABG Base Excess Michele Test ABG Potassium A-a O2 Difference Respiratory Index Glucose Lactate Vent Mode Mechanical Rate FiO2 Tidal Volume PEEP Crit Value Called To Crit Value Called By Crit Value Read Back Blood Gas Notified Time Sodium Potassium Chloride Carbon Dioxide Anion Gap BUN Creatinine Est GFR ( Amer) Est GFR (Non-Af Amer) POC Glucose (mg/dL) 165 H Random Glucose Hemoglobin A1c Lactic Acid 4.6 H* Calcium Phosphorus Magnesium Total Bilirubin AST ALT Alkaline Phosphatase Total Creatine Kinase 343 H CK-MB (Mass) 3.87 H Troponin I 0.0310 NT-Pro-B Natriuret Pep Total Protein Albumin Globulin Albumin/Globulin Ratio Amylase Lipase TSH 3rd Generation Plasma Cortisol PM Arterial Blood Potassium Random Vancomycin B-Hydroxybutyrate Blood Type Blood Type Confirm Antibody Screen 03/07/18 14:48 WBC RBC Hgb Hct MCV MCH MCHC RDW Plt Count MPV Neut % (Auto) Lymph % (Auto) [place] % (Auto) Eos % (Auto) Baso % (Auto) Neut # (Auto) Lymph # (Auto) [place] # (Auto) Eos # (Auto) Baso # (Auto) Neutrophils % (Manual) Band Neutrophils % Lymphocytes % (Manual) Monocytes % (Manual) Platelet Estimate Large Platelets Polychromasia Microcytosis (manual) PT INR APTT Puncture Site Rba pCO2 34 L pO2 61 L HCO3 24.9 ABG pH 7.45 ABG Total CO2 24.6 ABG O2 Saturation 96.9 ABG Base Excess 0.1 Michele Test Na ABG Potassium 3.7 A-a O2 Difference 324.0 Respiratory Index 5.3 Glucose 132 H Lactate 4.4 H* Vent Mode Prvc Mechanical Rate 20 FiO2 60.0 Tidal Volume 450 PEEP 5 Crit Value Called To [facility] nurse vitaliy Crit Value Called By Mariluz rt Crit Value Read Back Y Blood Gas Notified Time 1452 Sodium 144.0 Potassium Chloride 113.0 H Carbon Dioxide Anion Gap BUN Creatinine Est GFR ( Amer) Est GFR (Non-Af Amer) POC Glucose (mg/dL) Random Glucose Hemoglobin A1c Lactic Acid Calcium Phosphorus Magnesium Total Bilirubin AST ALT Alkaline Phosphatase Total Creatine Kinase CK-MB (Mass) Troponin I NT-Pro-B Natriuret Pep Total Protein Albumin Globulin Albumin/Globulin Ratio Amylase Lipase TSH 3rd Generation Plasma Cortisol PM Arterial Blood Potassium 3.7 Random Vancomycin B-Hydroxybutyrate Blood Type Blood Type Confirm Antibody Screen Assessment & Plan - Assessment and Plan (Free Text) Plan: Patient with h/o colangiocarcinoma, no h/o a-fib not on anticoagulation presents to [facility] from snf with c/o abdominal pain and severe lactic a cidosis -Severe lactic acidosis c/w gut ischemia -shock: being emergently resusitated with IVF via central [place] -septic shock:start broad spectrum abx -serial lactic -hypoxic and hypercapneic respiratory failure: d/c fentanyl patch and pushed narcan to improve ventilation -DVT/PUD ppx -Patient remains critical. -Adendum: CT abd/pelvis c/w ischemia: urgent surgery consulted Family at bedside informed of above events cc time 50 minutes - Date & Time Date: 03/06/18 Time: 21:00
[2018-03-06] MEDS ORDERED: (Novolog) Insulin Aspart, Recombinant 100 u/ml 10 ml vial SC SCH (15:15)
[2018-03-06 15:18] LABS: BARBITURATES, UR NEGATIVE (NEGATIVE); BENZODIAZEPINES, UR NEGATIVE (NEGATIVE); OPIATES, UR NEGATIVE (NEGATIVE); PHENCYCLIDINE, UR NEGATIVE (NEGATIVE)
--- NOTE | 2018-03-06 15:35 | RAD ---
Date of service: 03/06/2018 HISTORY: eval lungs COMPARISON: Chest radiograph 06/02/2015. FINDINGS: LUNGS: Inspiratory volume appears diminished significantly. Bilateral basilar infiltrates are not excluded though atelectasis may be the only cause of bilateral basilar increased density. PLEURA: No significant pleural effusion identified, no pneumothorax apparent. CARDIOVASCULAR: Calcific atherosclerotic changes are seen related to the thoracic aorta. Normal cardiac size. No pulmonary vascular congestion. OSSEOUS STRUCTURES: No significant abnormalities. VISUALIZED UPPER ABDOMEN: Normal. OTHER FINDINGS: None. IMPRESSION: Limited inspiratory volume. Consider potential bilateral basilar infiltrates or secondary atelectasis. No pleural effusion or pulmonary vascular congestion appreciable.
[2018-03-06 16:03] LABS: ARTERIAL BLOOD GAS O2 SAT 70.9 % (95-98); ARTERIAL BLOOD GAS PCO2 33 mm/Hg (35-45); ARTERIAL BLOOD GAS PH 7.12 (7.35-7.45); ARTERIAL BLOOD GAS PO2 39 mm/Hg (80-100); ARTERIAL BLOOD GAS TCO2 11.7 mmol/L (22-28)
[2018-03-06] MEDS: Piperacillin/Tazobact 3.375 GM in Sodium Chloride 100 ML IVPB SCH ×2 (16:11→20:49)
--- NOTE | 2018-03-06 16:14 | CP.PCM.HP ---
Past Patient History - Infectious Disease Hx of Infectious Diseases: C.diff - Past Medical History & Family History Past Medical History?: Yes - Past Social History Smoking Status: Former Smoker - CARDIAC Hx Hypertension: Yes - PULMONARY Hx Respiratory Disorders: Yes (DYSPNEA ON EXERTION) - NEUROLOGICAL Hx Dementia: Yes - HEENT Hx HEENT Problems: Yes Hx Cataracts: Yes - RENAL Hx Chronic Kidney Disease: No - ENDOCRINE/METABOLIC Hx Hypothyroidism: Yes - HEMATOLOGICAL/ONCOLOGICAL Hx Blood Disorders: Yes Hx Cancer: Yes (Intrahepatic bile duct carcinoma) - INTEGUMENTARY Hx Dermatological Problems: No - MUSCULOSKELETAL/RHEUMATOLOGICAL Hx Falls: No - GASTROINTESTINAL Hx Pancreatitis: Yes - GENITOURINARY/GYNECOLOGICAL Hx Genitourinary Disorders: No - PSYCHIATRIC Hx Substance Use: No - SURGICAL HISTORY Hx Cholecystectomy: Yes - ANESTHESIA Hx Anesthesia: Yes Hx Anesthesia Reactions: No Hx Malignant Hyperthermia: No Meds Allergies/Adverse Reactions: Allergies Allergy/AdvReac Type Severity Reaction Status Date / Time aspirin Allergy Intermediate SHORTNESS Verified 06/02/15 10:12 OF BREATH Physical Exam - Constitutional Appears: Well - Head Exam Head Exam: ATRAUMATIC, NORMAL INSPECTION, NORMOCEPHALIC - Eye Exam Eye Exam: EOMI, Normal appearance, PERRL Pupil Exam: NORMAL ACCOMODATION, PERRL - ENT Exam ENT Exam: Mucous Membranes Moist, Normal Exam - Neck Exam Neck exam: Positive for: Normal Inspection - Respiratory Exam Respiratory Exam: Decreased Breath Sounds - Cardiovascular Exam Cardiovascular Exam: REGULAR RHYTHM, +S1, +S2 - GI/Abdominal Exam GI & Abdominal Exam: Diminished Bowel Sounds, Soft - Rectal Exam Rectal Exam: Deferred Results - Vital Signs Recent Vital Signs: Last Vital Signs Temp 98.3 F 03/06/18 15:49 Pulse 98 H 03/06/18 16:07 Resp 28 H 03/06/18 16:07 BP 60/50 L 03/06/18 16:07 Pulse Ox 95 03/06/18 16:07 - Labs Result Diagrams: 03/06/18 12:45 03/06/18 12:45 Labs: Laboratory Results - last 24 hr 03/06/18 03/06/18 03/06/18 12:18 12:45 12:45 WBC 29.5 H D RBC 3.50 L Hgb 11.1 Hct 35.5 MCV 101.6 H D MCH 31.7 H MCHC 31.2 L RDW 18.0 H Plt Count 679 H D MPV 8.1 Neut % (Auto) 88.1 H Lymph % (Auto) 8.8 L [place] % (Auto) 2.7 Eos % (Auto) 0.1 Baso % (Auto) 0.3 Neut # (Auto) 25.9 H Lymph # (Auto) 2.6 [place] # (Auto) 0.8 Eos # (Auto) 0.0 Baso # (Auto) 0.1 Neutrophils % (Manual) 61 Band Neutrophils % 29 H* Lymphocytes % (Manual) 8 L Monocytes % (Manual) 1 Myelocytes % 1 H Platelet Estimate Markedly increased H Plt Clumps, EDTA Present Large Platelets Present Macrocytosis (manual) Slight PT INR Puncture Site pCO2 pO2 HCO3 ABG pH ABG Total CO2 ABG O2 Saturation ABG Base Excess Michele Test ABG Potassium VBG pH VBG pCO2 VBG HCO3 VBG Total CO2 VBG O2 Sat (Calc) VBG Base Excess VBG Potassium A-a O2 Difference Respiratory Index Glucose Lactate FiO2 Crit Value Called To Crit Value Called By Crit Value Read Back Blood Gas Notified Time Sodium 136 Potassium 5.8 H Chloride 106 Carbon Dioxide 8 L* D Anion Gap 27 H BUN 23 H Creatinine 0.9 Est GFR ( Amer) > 60 Est GFR (Non-Af Amer) > 60 POC Glucose (mg/dL) Random Glucose 353 H Calcium 9.6 Total Bilirubin 1.3 AST 52 H D ALT 20 Alkaline Phosphatase 154 H D Troponin I < 0.0120 Total Protein 6.2 L Albumin 2.9 L Globulin 3.3 Albumin/Globulin Ratio 0.9 L Lipase 39 Arterial Blood Potassium Venous Blood Potassium Urine Color [place] Urine Clarity Clear Urine pH 5.0 Ur Specific [place] 1.024 Urine Protein 1+ H Urine Glucose (UA) 2+ H Urine Ketones Trace Urine Blood Negative Urine Nitrate Negative Urine Bilirubin Negative Urine Urobilinogen Normal Ur Leukocyte Esterase Neg Urine WBC (Auto) 4 Urine RBC (Auto) 2 Ur Squamous Epith Cells < 1 Urine Bacteria Rare Hyaline Casts 6-10 H Urine Opiates Screen Urine Methadone Screen Ur Barbiturates Screen Ur Phencyclidine Scrn Ur Amphetamines Screen U Benzodiazepines Scrn U Oth Cocaine Metabols U Cannabinoids Screen 03/06/18 03/06/18 03/06/18 12:45 13:11 14:13 WBC RBC Hgb Hct MCV MCH MCHC RDW Plt Count MPV Neut % (Auto) Lymph % (Auto) [place] % (Auto) Eos % (Auto) Baso % (Auto) Neut # (Auto) Lymph # (Auto) [place] # (Auto) Eos # (Auto) Baso # (Auto) Neutrophils % (Manual) Band Neutrophils % Lymphocytes % (Manual) Monocytes % (Manual) Myelocytes % Platelet Estimate Plt Clumps, EDTA Large Platelets Macrocytosis (manual) PT 13.3 H INR 1.2 Puncture Site pCO2 pO2 25 L HCO3 ABG pH ABG Total CO2 ABG O2 Saturation ABG Base Excess Michele Test ABG Potassium VBG pH 6.90 L* VBG pCO2 43 VBG HCO3 3.7 VBG Total CO2 9.7 L VBG O2 Sat (Calc) 29.4 L VBG Base Excess -24.3 L VBG Potassium 5.2 A-a O2 Difference Respiratory Index Glucose 306 H Lactate 13.5 H* FiO2 Crit Value Called To Crit Value Called By Crit Value Read Back Blood Gas Notified Time Sodium 139.0 Potassium Chloride 107.0 Carbon Dioxide Anion Gap BUN Creatinine Est GFR ( Amer) Est GFR (Non-Af Amer) POC Glucose (mg/dL) 266 H Random Glucose Calcium Total Bilirubin AST ALT Alkaline Phosphatase Troponin I Total Protein Albumin Globulin Albumin/Globulin Ratio Lipase Arterial Blood Potassium Venous Blood Potassium 5.2 Urine Color Urine Clarity Urine pH Ur Specific [place] Urine Protein Urine Glucose (UA) Urine Ketones Urine Blood Urine Nitrate Urine Bilirubin Urine Urobilinogen Ur Leukocyte Esterase Urine WBC (Auto) Urine RBC (Auto) Ur Squamous Epith Cells Urine Bacteria Hyaline Casts Urine Opiates Screen Urine Methadone Screen Ur Barbiturates Screen Ur Phencyclidine Scrn Ur Amphetamines Screen U Benzodiazepines Scrn U Oth Cocaine Metabols U Cannabinoids Screen 03/06/18 03/06/18 14:29 16:00 WBC RBC Hgb Hct MCV MCH MCHC RDW Plt Count MPV Neut % (Auto) Lymph % (Auto) [place] % (Auto) Eos % (Auto) Baso % (Auto) Neut # (Auto) Lymph # (Auto) [place] # (Auto) Eos # (Auto) Baso # (Auto) Neutrophils % (Manual) Band Neutrophils % Lymphocytes % (Manual) Monocytes % (Manual) Myelocytes % Platelet Estimate Plt Clumps, EDTA Large Platelets Macrocytosis (manual) PT INR Puncture Site Lfemoral pCO2 33 L pO2 39 L* HCO3 10.0 L ABG pH 7.12 L* ABG Total CO2 11.7 L ABG O2 Saturation 70.9 L ABG Base Excess -17.6 L Michele Test Na ABG Potassium 4.5 VBG pH VBG pCO2 VBG HCO3 VBG Total CO2 VBG O2 Sat (Calc) VBG Base Excess VBG Potassium A-a O2 Difference 633.0 Respiratory Index 16.2 Glucose 202 H Lactate 12.7 H* FiO2 100.0 Crit Value Called To Dr dixon Crit Value Called By Justice Crit Value Read Back Y Blood Gas Notified Time 1600 Sodium 142.0 Potassium Chloride 111.0 H Carbon Dioxide Anion Gap BUN Creatinine Est GFR ( Amer) Est GFR (Non-Af Amer) POC Glucose (mg/dL) Random Glucose Calcium Total Bilirubin AST ALT Alkaline Phosphatase Troponin I Total Protein Albumin Globulin Albumin/Globulin Ratio Lipase Arterial Blood Potassium 4.5 Venous Blood Potassium Urine Color Urine Clarity Urine pH Ur Specific [place] Urine Protein Urine Glucose (UA) Urine Ketones Urine Blood Urine Nitrate Urine Bilirubin Urine Urobilinogen Ur Leukocyte Esterase Urine WBC (Auto) Urine RBC (Auto) Ur Squamous Epith Cells Urine Bacteria Hyaline Casts Urine Opiates Screen Negative Urine Methadone Screen Negative Ur Barbiturates Screen Negative Ur Phencyclidine Scrn Negative Ur Amphetamines Screen Negative U Benzodiazepines Scrn Negative U Oth Cocaine Metabols Negative U Cannabinoids Screen Negative
[2018-03-06] MEDS ORDERED: Lactated Ringer's 1,000 ML IV ONE (16:15)
--- NOTE | 2018-03-06 16:39 | CT ---
Date of service: 03/06/2018 PROCEDURE: CT Abdomen and Pelvis without intravenous contrast HISTORY: Pain COMPARISON: Abdomen pelvis CT with contrast 11/27/2017. TECHNIQUE: Helical CT of the abdomen and pelvis was performed without oral or intravenous contrast as per referring physician request. Coronal and sagittal reformats were generated. Contrast dose: None Radiation dose: Total exam DLP = 1076.01 mGy-cm. This CT exam was performed using one or more of the following dose reduction techniques: Automated exposure control, adjustment of the mA and/or kV according to patient size, and/or use of iterative reconstruction technique. FINDINGS: LOWER THORAX: Bilateral basilar infiltrates are identified bilaterally. Cardiomegaly is reiterated. LIVER: Unremarkable. No gross lesion or ductal dilatation. GALLBLADDER AND BILE DUCTS: Prior cholecystectomy. PANCREAS: A trophic pancreas identified without gross mass. SPLEEN: Unremarkable. ADRENALS: The right adrenal gland appears normal. The left adrenal gland [place] is a 2.5 cm nodule measuring 31 Hounsfield units. This may resent a benign adrenal adenoma but cannot be proven by the current study. Follow-up MRI without contrast is recommended for proper characterization. Metastatic lesion not excluded. KIDNEYS AND URETERS: No obstructive uropathy bilaterally. Nonspecific streaky perinephric changes are identified bilaterally once again. VASCULATURE: Please see bowel section below. Nonaneurysmal abdominal aortic calcific atherosclerotic changes are identified. BOWEL: Motion gastrointestinal tract is compromised by the lack of oral and intravenous contrast. However, there is enteric pneumatosis affecting small-bowel primarily at the left lower quadrant abdomen and left hemipelvis with limited gas identified in the nondependent periphery of the left hepatic lobe portal venous system. Venous gas identified within various veins within the central bowel mesentery and also the right flank portion of the mesentery as well. This is a pattern product support representative of ischemic small bowel and cervical consultation is recommended. The stomach is mildly distend with retained fluid. Large and small bowel loops appear mildly dilated in a pattern that likely reflects an ileus. Distal large bowel obstruction unlikely. A jejunostomy tube is identified at the left lower quadrant entering through the left mari abdominal wall and terminating at the inferior left hemipelvis within a small bowel loop. Postoperative changes are identified potentially related to transverse colon. A wire like radiodensity is seen at the right upper quadrant potentially related to small bowel. APPENDIX: Not identified. No definitive pattern to suggest appendicitis. PERITONEUM: Trace ascites identified in the inferior abdomen and pelvis. No free intra peritoneal gas collection. LYMPH NODES: No significant lymphadenopathy. BLADDER: Urinary bladder is decompressed by Tran catheter with limited gas in the lumen. REPRODUCTIVE: Unremarkable. BONES: No acute fracture. OTHER FINDINGS: None. IMPRESSION: 1. Findings most compatible with ischemic small bowel at the left mari abdomen and pelvis with extensive pneumatosis intestinalis, mesenteric venous gas and intrahepatic portal venous gas identified. Likely secondary bowel ileus present as discussed above. No definitive bowel obstruction identified. 2. Limited lower abdomen and pelvis ascites. 3. Prior cholecystectomy. 4. Additional postoperative changes upper abdomen of uncertain origin. 5. Left lower quadrant jejunostomy. 6. 2.5 cm left adrenal nodule of indeterminate etiology. Follow-up MRI without contrast is advised to exclude potential metastasis though this may simply represent a benign adrenal adenoma. Findings discussed with Dr. Cavazos with written down read back verification 03/06/2018 4:05 p.m. General surgery already notified prior to our discussion of the case according to Dr. Cavazos.
[2018-03-06 17:38] LABS: ABG ALLEN TEST UNABLE; ARTERIAL BLOOD GAS HCO3 12.9 mmol/L (21-28); ARTERIAL BLOOD GAS O2 SAT 99.9 % (95-98); ARTERIAL BLOOD GAS PCO2 25 mm/Hg (35-45); ARTERIAL BLOOD GAS PH 7.23 (7.35-7.45); ARTERIAL BLOOD GAS PO2 94 mm/Hg (80-100); ARTERIAL BLOOD GAS TCO2 11.3 mmol/L (22-28)
[2018-03-06 17:40] LABS: BASO # 0.1 K/uL (0.0-0.2); BASO % 0.2 % (0.0-2.0); HEMOGLOBIN 7.9 g/dL (11.0-16.0); LYMPH # 2.6 K/uL (1.0-4.3); LYMPH % 7.5 % (20.0-40.0); MEAN CELL VOLUME 98.6 fL (81.0-99.0); MEAN CORPUSCULAR HEMOGLOBIN 31.1 pg (27.0-31.0); MEAN CORPUSCULAR HGB CONC 31.5 g/dL (33.0-37.0); MEAN PLATELET VOLUME 7.9 fL (7.2-11.7); MONO # 1.4 K/uL (0.0-0.8); MONO % 4.1 % (0.0-10.0); NEUT # 30.7 K/uL (1.8-7.0); NEUT % 88.2 % (50.0-75.0); NRBC % 0.2 % (0.0-2.0); PLATELET COUNT 469 K/uL (130-400); RBC 2.53 Mil/uL (3.80-5.20); WHITE BLOOD COUNT 34.8 K/uL (4.8-10.8)
[2018-03-06 18:01] LABS: ALB/GLOB RATIO 0.7 (1.0-2.1); ALBUMIN 1.7 g/dL (3.5-5.0); ALT/SGPT 40 U/L (9-52); AMYLASE 32 U/L (30-110); AST/SGOT 96 U/L (14-36); BLOOD UREA NITROGEN 18 mg/dL (7-17); CALCIUM 7.4 mg/dl (8.6-10.4); GFR NON-AFRICAN AMERICAN > 60; LIPASE 32 U/L (23-300)
[2018-03-06 18:04] LABS: B-TYPE NATRIURETIC PEPTIDE 4330 pg/mL (0-900)
--- NOTE | 2018-03-06 18:24 | CP.PCM.CON ---
History of Present Illness - History of Present Illness History of Present Illness: Surgery consult note for Dr. Freitas Consulted for: ischemic bowel pt is an 82F with PMH of DM, hypothyroidism, and cholangiocarcinoma S/P whipple procedure 3 months ago and [facility] who presented to the ED from a longterm for nausea, vomiting, and abdominal pain worsening and refractory to pain medications. Patient's son says that patient has had extensive, difficult recovery from prior procedure, requiring and jejunostomy tube d/t poor PO intake and has only recently been at her normal mental capacity. Pain started yesterday afternoon and became worse over night. In ER patient was hypotensive, acutely tender in the abdomen, with severe leukocytosis and acidotic. patient was given multiple fluid boluses and started on levophed, antibiotics and a bicarb drip. CT showed pneumobilia (can be normal finding S/P whipple) and pneumotosis intestinalis concerning for ischemic bowel. Patient is awake and alert with BP stabilized with pressors at time of examination. Family denies any history of hear disease or afib PMH: DM, hypothyroidism, cholangiocarcinoma PSH: cholecystectomy, whipples ALL: ASA Review of Systems - Review of Systems All systems: reviewed and no additional remarkable complaints except (as per HPI) Past Patient History - Infectious Disease Hx of Infectious Diseases: C.diff - Past Medical History & Family History Past Medical History?: Yes Past Family History: Reviewed and not pertinent - Past Social History Smoking Status: Former Smoker - CARDIAC Hx Hypertension: Yes - PULMONARY Hx Respiratory Disorders: Yes (DYSPNEA ON EXERTION) - NEUROLOGICAL Hx Dementia: Yes - HEENT Hx HEENT Problems: Yes Hx Cataracts: Yes - RENAL Hx Chronic Kidney Disease: No - ENDOCRINE/METABOLIC Hx Hypothyroidism: Yes - HEMATOLOGICAL/ONCOLOGICAL Hx Blood Disorders: Yes Hx Cancer: Yes (Intrahepatic bile duct carcinoma) - INTEGUMENTARY Hx Dermatological Problems: No - MUSCULOSKELETAL/RHEUMATOLOGICAL Hx Falls: No - GASTROINTESTINAL Hx Pancreatitis: Yes - GENITOURINARY/GYNECOLOGICAL Hx Genitourinary Disorders: No - PSYCHIATRIC Hx Substance Use: No - SURGICAL HISTORY Hx Cholecystectomy: Yes - ANESTHESIA Hx Anesthesia: Yes Hx Anesthesia Reactions: No Hx Malignant Hyperthermia: No Meds Allergies/Adverse Reactions: Allergies Allergy/AdvReac Type Severity Reaction Status Date / Time aspirin Allergy Intermediate SHORTNESS Verified 06/02/15 10:12 OF BREATH - Medications Medications: Current Medications Dextrose (Dextrose 50% Inj) 0 ml IV STAT PRN; Protocol PRN Reason: Hypoglycemia Protocol Dextrose (Glutose 15) 0 gm PO ONCE PRN; Protocol PRN Reason: Hypoglycemia Protocol Glucagon (Glucagen Diagnostic Kit) 0 mg IM STAT PRN; Protocol PRN Reason: Hypoglycemia Protocol Norepinephrine Bitartrate 4 mg (/ Sodium Chloride) 254 mls @ 15.24 mls/hr IV .[id number] PRN; Protocol PRN Reason: TITRATE PER MD ORDER Last Titration: 03/06/18 16:08 Dose: 10 mcg/min, 38.1 mls/hr Piperacillin Sod/Tazobactam (Sod 3.375 gm/ Sodium Chloride) 100 mls @ 200 mls/hr IVPB Q6H ARPIT; Protocol Last Admin: 03/06/18 16:11 Dose: 200 mls/hr Sodium Bicarbonate 75 meq/ (Sodium Chloride) 1,075 mls @ 100 mls/hr IV .[id number] ARPIT Last Admin: 03/06/18 16:09 Dose: 100 mls/hr Dextrose (Dextrose 5% In Water 1000 Ml) 1,000 mls @ 0 mls/hr IV .Q0M PRN; Protocol PRN Reason: Hypoglycemia Protocol Sodium Chloride (Sodium Chloride 0.9%) 1,000 mls @ 250 mls/hr IV .Q4H ONE Stop: 03/06/18 20:14 Last Admin: 03/06/18 16:30 Dose: 250 mls/hr Insulin Aspart (Novolog) 0 unit SC Q6H ARPIT; Protocol Physical Exam - Constitutional Appears: Toxic, In Acute Distress - Head Exam Head Exam: ATRAUMATIC, NORMOCEPHALIC - Eye Exam Eye Exam: Normal appearance. absent: Conjunctival injection, Scleral icterus - ENT Exam ENT Exam: Mucous Membranes Moist, Normal Oropharynx - Respiratory Exam Respiratory Exam: NORMAL BREATHING PATTERN. absent: Accessory Muscle Use, Respiratory Distress - Cardiovascular Exam Cardiovascular Exam: Tachycardia, REGULAR RHYTHM - GI/Abdominal Exam GI & Abdominal Exam: Distended, Firm, Guarding, Rebound, Tenderness (diffuse severe tenderness) Additional comments: large horizontal scar from RUQ to LUQ - Extremities Exam Extremities exam: Positive for: pedal pulses present. Negative for: calf tenderness, pedal edema - Neurological Exam Neurological exam: Alert, Oriented x3 - Psychiatric Exam Psychiatric exam: Agitated, Anxious - Skin Skin Exam: Dry, Normal Color, Warm Results - Vital Signs Recent Vital Signs: Last Vital Signs Temp 98.3 F 03/06/18 15:49 Pulse 98 H 03/06/18 16:07 Resp 28 H 03/06/18 16:07 BP 60/50 L 03/06/18 16:07 Pulse Ox 95 03/06/18 16:07 - Labs Result Diagrams: 03/06/18 17:33 03/06/18 17:33 Labs: Laboratory Results - last 24 hr 03/06/18 03/06/18 03/06/18 12:18 12:45 12:45 WBC 29.5 H D RBC 3.50 L Hgb 11.1 Hct 35.5 MCV 101.6 H D MCH 31.7 H MCHC 31.2 L RDW 18.0 H Plt Count 679 H D MPV 8.1 Neut % (Auto) 88.1 H Lymph % (Auto) 8.8 L Rogers % (Auto) 2.7 Eos % (Auto) 0.1 Baso % (Auto) 0.3 Neut # (Auto) 25.9 H Lymph # (Auto) 2.6 Rogers # (Auto) 0.8 Eos # (Auto) 0.0 Baso # (Auto) 0.1 Neutrophils % (Manual) 61 Band Neutrophils % 29 H* Lymphocytes % (Manual) 8 L Monocytes % (Manual) 1 Myelocytes % 1 H Platelet Estimate Markedly increased H Plt Clumps, EDTA Present Large Platelets Present Macrocytosis (manual) Slight PT INR Puncture Site pCO2 pO2 HCO3 ABG pH ABG Total CO2 ABG O2 Saturation ABG Base Excess Michele Test ABG Potassium VBG pH VBG pCO2 VBG HCO3 VBG Total CO2 VBG O2 Sat (Calc) VBG Base Excess VBG Potassium A-a O2 Difference Respiratory Index Glucose Lactate FiO2 Crit Value Called To Crit Value Called By Crit Value Read Back Blood Gas Notified Time Sodium 136 Potassium 5.8 H Chloride 106 Carbon Dioxide 8 L* D Anion Gap 27 H BUN 23 H Creatinine 0.9 Est GFR ( Amer) > 60 Est GFR (Non-Af Amer) > 60 POC Glucose (mg/dL) Random Glucose 353 H Hemoglobin A1c Calcium 9.6 Phosphorus Magnesium Total Bilirubin 1.3 AST 52 H D ALT 20 Alkaline Phosphatase 154 H D Troponin I < 0.0120 NT-Pro-B Natriuret Pep Total Protein 6.2 L Albumin 2.9 L Globulin 3.3 Albumin/Globulin Ratio 0.9 L Amylase Lipase 39 Arterial Blood Potassium Venous Blood Potassium Urine Color [place] Urine Clarity Clear Urine pH 5.0 Ur Specific [place] 1.024 Urine Protein 1+ H Urine Glucose (UA) 2+ H Urine Ketones Trace Urine Blood Negative Urine Nitrate Negative Urine Bilirubin Negative Urine Urobilinogen Normal Ur Leukocyte Esterase Neg Urine WBC (Auto) 4 Urine RBC (Auto) 2 Ur Squamous Epith Cells < 1 Urine Bacteria Rare Hyaline Casts 6-10 H Urine Opiates Screen Urine Methadone Screen Ur Barbiturates Screen Ur Phencyclidine Scrn Ur Amphetamines Screen U Benzodiazepines Scrn U Oth Cocaine Metabols U Cannabinoids Screen 03/06/18 03/06/18 03/06/18 12:45 13:11 14:13 WBC RBC Hgb Hct MCV MCH MCHC RDW Plt Count MPV Neut % (Auto) Lymph % (Auto) Rogers % (Auto) Eos % (Auto) Baso % (Auto) Neut # (Auto) Lymph # (Auto) Rogers # (Auto) Eos # (Auto) Baso # (Auto) Neutrophils % (Manual) Band Neutrophils % Lymphocytes % (Manual) Monocytes % (Manual) Myelocytes % Platelet Estimate Plt Clumps, EDTA Large Platelets Macrocytosis (manual) PT 13.3 H INR 1.2 Puncture Site pCO2 pO2 25 L HCO3 ABG pH ABG Total CO2 ABG O2 Saturation ABG Base Excess Michele Test ABG Potassium VBG pH 6.90 L* VBG pCO2 43 VBG HCO3 3.7 VBG Total CO2 9.7 L VBG O2 Sat (Calc) 29.4 L VBG Base Excess -24.3 L VBG Potassium 5.2 A-a O2 Difference Respiratory Index Glucose 306 H Lactate 13.5 H* FiO2 Crit Value Called To Crit Value Called By Crit Value Read Back Blood Gas Notified Time Sodium 139.0 Potassium Chloride 107.0 Carbon Dioxide Anion Gap BUN Creatinine Est GFR ( Amer) Est GFR (Non-Af Amer) POC Glucose (mg/dL) 266 H Random Glucose Hemoglobin A1c Calcium Phosphorus Magnesium Total Bilirubin AST ALT Alkaline Phosphatase Troponin I NT-Pro-B Natriuret Pep Total Protein Albumin Globulin Albumin/Globulin Ratio Amylase Lipase Arterial Blood Potassium Venous Blood Potassium 5.2 Urine Color Urine Clarity Urine pH Ur Specific [place] Urine Protein Urine Glucose (UA) Urine Ketones Urine Blood Urine Nitrate Urine Bilirubin Urine Urobilinogen Ur Leukocyte Esterase Urine WBC (Auto) Urine RBC (Auto) Ur Squamous Epith Cells Urine Bacteria Hyaline Casts Urine Opiates Screen Urine Methadone Screen Ur Barbiturates Screen Ur Phencyclidine Scrn Ur Amphetamines Screen U Benzodiazepines Scrn U Oth Cocaine Metabols U Cannabinoids Screen 03/06/18 03/06/18 03/06/18 14:29 16:00 17:33 WBC RBC Hgb Hct MCV MCH MCHC RDW Plt Count MPV Neut % (Auto) Lymph % (Auto) Rogers % (Auto) Eos % (Auto) Baso % (Auto) Neut # (Auto) Lymph # (Auto) Rogers # (Auto) Eos # (Auto) Baso # (Auto) Neutrophils % (Manual) Band Neutrophils % Lymphocytes % (Manual) Monocytes % (Manual) Myelocytes % Platelet Estimate Plt Clumps, EDTA Large Platelets Macrocytosis (manual) PT INR Puncture Site Lfemoral pCO2 33 L pO2 39 L* HCO3 10.0 L ABG pH 7.12 L* ABG Total CO2 11.7 L ABG O2 Saturation 70.9 L ABG Base Excess -17.6 L Michele Test Na ABG Potassium 4.5 VBG pH VBG pCO2 VBG HCO3 VBG Total CO2 VBG O2 Sat (Calc) VBG Base Excess VBG Potassium A-a O2 Difference 633.0 Respiratory Index 16.2 Glucose 202 H Lactate 12.7 H* FiO2 100.0 Crit Value Called To Dr dixon Crit Value Called By Justice Crit Value Read Back Y Blood Gas Notified Time 1600 Sodium 142.0 142 Potassium 4.0 Chloride 111.0 H 112 H Carbon Dioxide 13 L Anion Gap 22 H BUN 18 H Creatinine 0.6 L Est GFR ( Amer) > 60 Est GFR (Non-Af Amer) > 60 POC Glucose (mg/dL) Random Glucose 153 H Hemoglobin A1c Calcium 7.4 L Phosphorus 5.0 H Magnesium 1.5 L Total Bilirubin 1.3 AST 96 H D ALT 40 Alkaline Phosphatase 88 Troponin I < 0.0120 NT-Pro-B Natriuret Pep 4330 H Total Protein 4.1 L Albumin 1.7 L D Globulin 2.4 Albumin/Globulin Ratio 0.7 L Amylase 32 Lipase 32 Arterial Blood Potassium 4.5 Venous Blood Potassium Urine Color Urine Clarity Urine pH Ur Specific [place] Urine Protein Urine Glucose (UA) Urine Ketones Urine Blood Urine Nitrate Urine Bilirubin Urine Urobilinogen Ur Leukocyte Esterase Urine WBC (Auto) Urine RBC (Auto) Ur Squamous Epith Cells Urine Bacteria Hyaline Casts Urine Opiates Screen Negative Urine Methadone Screen Negative Ur Barbiturates Screen Negative Ur Phencyclidine Scrn Negative Ur Amphetamines Screen Negative U Benzodiazepines Scrn Negative U Oth Cocaine Metabols Negative U Cannabinoids Screen Negative 03/06/18 03/06/18 03/06/18 17:33 17:33 17:34 WBC 34.8 H RBC 2.53 L Hgb 7.9 L D Hct 24.9 L MCV 98.6 D MCH 31.1 H MCHC 31.5 L RDW 17.0 H Plt Count 469 H D MPV 7.9 Neut % (Auto) 88.2 H Lymph % (Auto) 7.5 L Rogers % (Auto) 4.1 Eos % (Auto) 0.0 Baso % (Auto) 0.2 Neut # (Auto) 30.7 H Lymph # (Auto) 2.6 Rogers # (Auto) 1.4 H Eos # (Auto) 0.0 Baso # (Auto) 0.1 Neutrophils % (Manual) Band Neutrophils % Lymphocytes % (Manual) Monocytes % (Manual) Myelocytes % Platelet Estimate Plt Clumps, EDTA Large Platelets Macrocytosis (manual) PT INR Puncture Site Lr pCO2 25 L pO2 94 HCO3 12.9 L ABG pH 7.23 L ABG Total CO2 11.3 L ABG O2 Saturation 99.9 H ABG Base Excess -15.3 L Michele Test Unable ABG Potassium 3.4 L VBG pH VBG pCO2 VBG HCO3 VBG Total CO2 VBG O2 Sat (Calc) VBG Base Excess VBG Potassium A-a O2 Difference 231.0 Respiratory Index 2.5 Glucose 153 H Lactate 11.4 H* FiO2 50.0 Crit Value Called To Dr dixon Crit Value Called By Justice lee Crit Value Read Back Y Blood Gas Notified Time 1737 Sodium 146.0 Potassium Chloride 118.0 H Carbon Dioxide Anion Gap BUN Creatinine Est GFR ( Amer) Est GFR (Non-Af Amer) POC Glucose (mg/dL) Random Glucose Hemoglobin A1c 6.9 H Calcium Phosphorus Magnesium Total Bilirubin AST ALT Alkaline Phosphatase Troponin I NT-Pro-B Natriuret Pep Total Protein Albumin Globulin Albumin/Globulin Ratio Amylase Lipase Arterial Blood Potassium 3.4 L Venous Blood Potassium Urine Color Urine Clarity Urine pH Ur Specific [place] Urine Protein Urine Glucose (UA) Urine Ketones Urine Blood Urine Nitrate Urine Bilirubin Urine Urobilinogen Ur Leukocyte Esterase Urine WBC (Auto) Urine RBC (Auto) Ur Squamous Epith Cells Urine Bacteria Hyaline Casts Urine Opiates Screen Urine Methadone Screen Ur Barbiturates Screen Ur Phencyclidine Scrn Ur Amphetamines Screen U Benzodiazepines Scrn U Oth Cocaine Metabols U Cannabinoids Screen Assessment & Plan - Assessment and Plan (Free Text) Assessment: 82F with acute abdomen and septic shock, likely d/t ischemic bowel Plan: After extensive discussion of the risks and benefits of OR--including high risk of in the OR or in the immediate postoperative period and the high risk of morbidity, family agrees to go forward with exploratory laparotomy in the OR OR tonight NPO Continue medical management per ICU team type and cross for blood antibiotics IVF Seen and discussed with Dr. Fortino Thompson, PGY2
[2018-03-06 18:44] LABS: BANDS 32 % (0-2); LYMPHOCYTE 11 % (20-40); MICROCYTOSIS SLIGHT; MONOCYTE 11 % (0-10); NEUTROPHIL 46 % (50-75); PLATELET ESTIMATE NORMAL (NORMAL); POLYCHROMIC SLIGHT; TOTAL CELLS COUNTED 100
[2018-03-06 18:45] LABS: LARGE PLATELETS PRESENT
--- NOTE | 2018-03-06 19:50 | PCM.SEPTIC ---
Sepsis Progress Note - Reassessment Type Date of Evaluation: 03/16/18 Time of Evaluation: 18:00 Reassessment Type: Non-invasive reassessment - Non Invasive Reassessment Were the most recent vital sign reviewed: Yes Vital Sign (Latest): Temp Pulse Resp BP Pulse Ox 98.3 F 125 H 42 H 119/53 L 96 03/06/18 15:49 03/06/18 19:30 03/06/18 19:30 03/06/18 19:30 03/06/18 19:30 Cardiovascular: Yes: Tachycardia. No: Irregularly Irregular Respiratory: Yes: Accessory Muscle Use, Respiratory Distress Capillary Refill: Normal (Less than 2 sec) Pulses: Normal Radial, Normal Dorsalis Pedis, Normal Posterior Tibialis Skin: Normal Color, Dry
[2018-03-06] MEDS ORDERED: Rocuronium 10 mg/ml (5 ml) ONE (20:14)
--- NOTE | 2018-03-06 21:59 | PCM.SURG1 ---
Surgeon's Initial Post Op Note - Surgeon's Notes Surgeon: Dr. Freitas Credit Card Control Clerk: Mila Thompson, PGY2 Type of Anesthesia: General Endo Anesthesia Administered By: Dr. Sharma and Dr. Shannon Pre-Operative Diagnosis: ischemic bowel Operative Findings: diffusely dusky small bowel, no focal necrosis, normal color colon and stomach, Post-Operative Diagnosis: same Operation Performed: exploratory laparotomy, lysis of adhesions Specimen/Specimens Removed: none Estimated Blood Loss: EBL {In ML}: 10 Date of Surgery/Procedure: 03/06/18 Time of Surgery/Procedure: 21:00
[2018-03-06 22:06] LABS: ARTERIAL BLOOD GAS HCO3 11.6 mmol/L (21-28); ARTERIAL BLOOD GAS O2 SAT 99.2 % (95-98); ARTERIAL BLOOD GAS PCO2 38 mm/Hg (35-45); ARTERIAL BLOOD GAS PO2 116 mm/Hg (80-100)
[2018-03-06] MEDS: (Novolog) Insulin Aspart, Recombinant 100 u/ml 10 ml vial SC SCH (22:08)
[2018-03-06] MEDS ORDERED: Albumin Human 25% (12.5 gm/50 ml) IV ONE (22:13)
[2018-03-06] MEDS ORDERED: Heparin25000 units/250ml 1/2NS 25,000 UNITS/250 ML BAG IV PRN ×2 (23:16→23:28)
[2018-03-07] MEDS: Heparin25000 units/250ml 1/2NS 25,000 UNITS/250 ML BAG IV PRN ×2 (00:07→17:50)
[2018-03-07] MEDS: (Novolog) Insulin Aspart, Recombinant 100 u/ml 10 ml vial SC SCH ×4 (00:08→17:54)
[2018-03-07] MEDS: DEXTROSE 5% IV SCH ×4 (00:08→16:12)
[2018-03-07] MEDS: WATER IV SCH ×4 (00:08→16:12)
[2018-03-07] MEDS: Norepinephrine 8 MG in Sodium Chloride 0.9% 500 ML IV PRN ×2 (00:08→13:57)
[2018-03-07] MEDS: SODIUM BICARBONATE IV SCH ×4 (00:08→16:12)
[2018-03-07 02:28] LABS: INR 1.6; PROTHROMBIN TIME 17.1 SECONDS (9.7-12.2)
[2018-03-07] MEDS: Piperacillin/Tazobact 3.375 GM in Sodium Chloride 100 ML IVPB SCH (03:30)
[2018-03-07] MEDS ORDERED: Acetaminophen IV 1,000 MG in Premixed IV 1 EA IV ONE (04:08)
[2018-03-07 05:13] LABS: BASO % 0.1 % (0.0-2.0); EOS # 0.1 K/uL (0.0-0.7); EOS % 0.2 % (0.0-4.0); HEMOGLOBIN 9.7 g/dL (11.0-16.0); LYMPH # 2.6 K/uL (1.0-4.3); LYMPH % 10.4 % (20.0-40.0); MEAN CELL VOLUME 92.2 fL (81.0-99.0); MEAN CORPUSCULAR HEMOGLOBIN 30.4 pg (27.0-31.0); MEAN PLATELET VOLUME 7.8 fL (7.2-11.7); MONO # 1.1 K/uL (0.0-0.8); MONO % 4.6 % (0.0-10.0); NEUT % 84.7 % (50.0-75.0); NRBC % 0.3 % (0.0-2.0); RBC 3.19 Mil/uL (3.80-5.20); RED CELL DISTRIBUTION WIDTH 17.2 % (11.5-14.5); WHITE BLOOD COUNT 24.7 K/uL (4.8-10.8)
[2018-03-07 05:18] LABS: INR 1.5; PROTHROMBIN TIME 16.9 SECONDS (9.7-12.2)
[2018-03-07] MEDS ORDERED: Sodium Chloride 0.9% 500 ML IV ONE (05:42)
[2018-03-07 05:51] LABS: ARTERIAL BLOOD GAS HCO3 22.9 mmol/L (21-28); ARTERIAL BLOOD GAS O2 SAT 99.8 % (95-98); ARTERIAL BLOOD GAS PCO2 28 mm/Hg (35-45); ARTERIAL BLOOD GAS PH 7.46 (7.35-7.45); ARTERIAL BLOOD GAS PO2 116 mm/Hg (80-100); ARTERIAL BLOOD GAS TCO2 20.8 mmol/L (22-28)
[2018-03-07 06:26] LABS: ALB/GLOB RATIO 1.2 (1.0-2.1); ALBUMIN 2.8 g/dL (3.5-5.0); ALT/SGPT 93 U/L (9-52); AST/SGOT 218 U/L (14-36); BLOOD UREA NITROGEN 22 mg/dL (7-17); CALCIUM 7.6 mg/dl (8.6-10.4); GFR NON-AFRICAN AMERICAN > 60
[2018-03-07] MEDS ORDERED: Magnesium Sulfate 1 gm in D5W 1 GM/100 ML BAG IVPB ONE ×2 (07:01→09:22)
--- NOTE | 2018-03-07 07:39 | CP.PCM.CON ---
History of Present Illness - History of Present Illness History of Present Illness: This is an 82 year old woman with abdominal pain, ischemic bowel. Patient is known to me from a previous admission 11/27/2017 for jaundice. She was admitted with jaundice, TBILI 22.7, ALKP 2199, and was found to have distal biliary obstruction. After an attempt at endoscopic stenting was unsuccessful, she was transferred to [facility] in [place]. 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 She was brought to the ER for abdominal pain, nausea and vomiting. On evaluation in the ER, she had a temperature of 99.3, HR 110, BP 189/123 which dropped to 80/60 within the first 30 minutes. Abdominal examination showed a feeding jejunostomy tube in the LLQ, distention and diffuse tenderness. Blood work showed leukocytosis (WBC 29.5), acidosis (venous pH 6.9, arterial pH 7.12, anion gap 22). CT scan showed pneumatosis involving the small bowel in the LLQ and portal venous gas within the mesentery and liver, consistent with small bowel ischemia. Patient was brought to the OR for exploratory laparotomy later in the day. Findings included diffuse duskiness of tony small bowel without focal necrosis with apparently normal stomach and colon; lysis of adhesions was performed but no resection. Review of Systems - Review of Systems Systems not reviewed;Unavailable: Intubated Past Patient History - Infectious Disease Hx of Infectious Diseases: C.diff - Past Medical History & Family History Past Medical History?: Yes - Past Social History Smoking Status: Former Smoker Chewing Tobacco Use: No Cigar Use: No Alcohol: None Drugs: Denies Home Situation {Lives}: Retirement - CARDIAC Hx Hypertension: Yes - PULMONARY Hx Respiratory Disorders: Yes (DYSPNEA ON EXERTION) - NEUROLOGICAL Hx Dementia: Yes - HEENT Hx HEENT Problems: Yes Hx Cataracts: Yes - RENAL Hx Chronic Kidney Disease: No - ENDOCRINE/METABOLIC Hx Hypothyroidism: Yes - HEMATOLOGICAL/ONCOLOGICAL Hx Blood Disorders: Yes Hx Cancer: Yes (Intrahepatic bile duct carcinoma) - INTEGUMENTARY Hx Dermatological Problems: No - MUSCULOSKELETAL/RHEUMATOLOGICAL Hx Falls: No - GASTROINTESTINAL Hx Pancreatitis: Yes - GENITOURINARY/GYNECOLOGICAL Hx Genitourinary Disorders: No - PSYCHIATRIC Hx Substance Use: No - SURGICAL HISTORY Hx Cholecystectomy: Yes - ANESTHESIA Hx Anesthesia: Yes Hx Anesthesia Reactions: No Hx Malignant Hyperthermia: No Meds Allergies/Adverse Reactions: Allergies Allergy/AdvReac Type Severity Reaction Status Date / Time aspirin Allergy Intermediate SHORTNESS Verified 06/02/15 10:12 OF BREATH - Medications Medications: Current Medications Dextrose (Dextrose 50% Inj) 0 ml IV STAT PRN; Protocol PRN Reason: Hypoglycemia Protocol Dextrose (Glutose 15) 0 gm PO ONCE PRN; Protocol PRN Reason: Hypoglycemia Protocol Glucagon (Glucagen Diagnostic Kit) 0 mg IM STAT PRN; Protocol PRN Reason: Hypoglycemia Protocol Piperacillin Sod/Tazobactam (Sod 3.375 gm/ Sodium Chloride) 100 mls @ 200 mls/hr IVPB Q6H ARPIT; Protocol Last Admin: 03/07/18 03:30 Dose: 200 mls/hr Dextrose (Dextrose 5% In Water 1000 Ml) 1,000 mls @ 0 mls/hr IV .Q0M PRN; Protocol PRN Reason: Hypoglycemia Protocol Sodium Bicarbonate 175 meq/ (Dextrose) 1,075 mls @ 100 mls/hr IV .[id number] ARPIT Last Admin: 03/07/18 00:08 Dose: 100 mls/hr Norepinephrine Bitartrate 8 mg (/ Sodium Chloride) 508 mls @ 15.24 mls/hr IV .Q24H PRN; Protocol PRN Reason: TITRATE PER MD ORDER Last Titration: 03/07/18 02:00 Dose: 20 mcg/min, 76.2 mls/hr Heparin Sodium/Sodium Chloride (Heparin 56833 Units/250ml 1/2 Normal Saline) 25,000 units in 250 mls @ 9.253 mls/hr IV .Q24H PRN; Protocol PRN Reason: PROTOCOL Last Titration: 03/07/18 04:00 Dose: 6 units/kg/hr, 4.627 mls/hr Fentanyl Citrate 2,500 mcg/ (Sodium Chloride) 250 mls @ 15.42 mls/hr IV .[id number] PRN; Protocol Last Titration: 03/07/18 05:00 Dose: 5 mcg/kg/hr, 38.56 mls/hr Meropenem 1 gm/ Sodium (Chloride) 100 mls @ 100 mls/hr IVPB Q8H ARPIT; Protocol Insulin Aspart (Novolog) 0 unit SC Q6H ARPIT; Protocol Last Admin: 03/07/18 05:52 Dose: Not Given Morphine Sulfate (Morphine) 2 mg IVP Q3 PRN PRN Reason: Pain, severe (8-10) Last Admin: 03/07/18 07:00 Dose: 2 mg Physical Exam - Constitutional Appears: Toxic - Head Exam Head Exam: ATRAUMATIC, NORMOCEPHALIC - Eye Exam Eye Exam: absent: EOMI, PERRL - Neck Exam Neck exam: Negative for: Lymphadenopathy, Thyromegaly - Respiratory Exam Respiratory Exam: NORMAL BREATHING PATTERN. absent: Rales, Rhonchi, Wheezes - Cardiovascular Exam Cardiovascular Exam: REGULAR RHYTHM, +S1, +S2. absent: Gallop, Rubs, Systolic Murmur - GI/Abdominal Exam GI & Abdominal Exam: Diminished Bowel Sounds, Distended, Tenderness - Rectal Exam Rectal Exam: Deferred - Extremities Exam Extremities exam: Negative for: calf tenderness, pedal edema Results - Vital Signs Recent Vital Signs: Last Vital Signs Temp 99.9 F H 03/07/18 06:51 Pulse 108 H 03/07/18 07:00 Resp 15 03/07/18 07:00 BP 95/38 L 03/07/18 07:00 Pulse Ox 99 03/07/18 07:00 - Labs Result Diagrams: 03/07/18 05:04 03/07/18 05:04 Labs: Laboratory Results - last 24 hr 03/06/18 03/06/18 03/06/18 12:18 12:45 12:45 WBC 29.5 H D RBC 3.50 L Hgb 11.1 Hct 35.5 MCV 101.6 H D MCH 31.7 H MCHC 31.2 L RDW 18.0 H Plt Count 679 H D MPV 8.1 Neut % (Auto) 88.1 H Lymph % (Auto) 8.8 L [place] % (Auto) 2.7 Eos % (Auto) 0.1 Baso % (Auto) 0.3 Neut # (Auto) 25.9 H Lymph # (Auto) 2.6 [place] # (Auto) 0.8 Eos # (Auto) 0.0 Baso # (Auto) 0.1 Neutrophils % (Manual) 61 Band Neutrophils % 29 H* Lymphocytes % (Manual) 8 L Monocytes % (Manual) 1 Myelocytes % 1 H Platelet Estimate Markedly increased H Plt Clumps, EDTA Present Large Platelets Present Polychromasia Microcytosis (manual) Macrocytosis (manual) Slight PT INR APTT Puncture Site pCO2 pO2 HCO3 ABG pH ABG Total CO2 ABG O2 Saturation ABG Base Excess Michele Test ABG Potassium VBG pH VBG pCO2 VBG HCO3 VBG Total CO2 VBG O2 Sat (Calc) VBG Base Excess VBG Potassium A-a O2 Difference Respiratory Index Glucose Lactate Vent Mode Mechanical Rate FiO2 Tidal Volume PEEP Crit Value Called To Crit Value Called By Crit Value Read Back Blood Gas Notified Time Sodium 136 Potassium 5.8 H Chloride 106 Carbon Dioxide 8 L* D Anion Gap 27 H BUN 23 H Creatinine 0.9 Est GFR ( Amer) > 60 Est GFR (Non-Af Amer) > 60 POC Glucose (mg/dL) Random Glucose 353 H Hemoglobin A1c Lactic Acid Calcium 9.6 Phosphorus Magnesium Total Bilirubin 1.3 AST 52 H D ALT 20 Alkaline Phosphatase 154 H D Troponin I < 0.0120 NT-Pro-B Natriuret Pep Total Protein 6.2 L Albumin 2.9 L Globulin 3.3 Albumin/Globulin Ratio 0.9 L Amylase Lipase 39 TSH 3rd Generation Plasma Cortisol PM Arterial Blood Potassium Venous Blood Potassium Urine Color [place] Urine Clarity Clear Urine pH 5.0 Ur Specific [place] 1.024 Urine Protein 1+ H Urine Glucose (UA) 2+ H Urine Ketones Trace Urine Blood Negative Urine Nitrate Negative Urine Bilirubin Negative Urine Urobilinogen Normal Ur Leukocyte Esterase Neg Urine WBC (Auto) 4 Urine RBC (Auto) 2 Ur Squamous Epith Cells < 1 Urine Bacteria Rare Hyaline Casts 6-10 H Urine Opiates Screen Urine Methadone Screen Ur Barbiturates Screen Ur Phencyclidine Scrn Ur Amphetamines Screen U Benzodiazepines Scrn U Oth Cocaine Metabols U Cannabinoids Screen B-Hydroxybutyrate Blood Type Blood Type Confirm Antibody Screen 03/06/18 03/06/18 03/06/18 12:45 13:11 14:13 WBC RBC Hgb Hct MCV MCH MCHC RDW Plt Count MPV Neut % (Auto) Lymph % (Auto) [place] % (Auto) Eos % (Auto) Baso % (Auto) Neut # (Auto) Lymph # (Auto) [place] # (Auto) Eos # (Auto) Baso # (Auto) Neutrophils % (Manual) Band Neutrophils % Lymphocytes % (Manual) Monocytes % (Manual) Myelocytes % Platelet Estimate Plt Clumps, EDTA Large Platelets Polychromasia Microcytosis (manual) Macrocytosis (manual) PT 13.3 H INR 1.2 APTT Puncture Site pCO2 pO2 25 L HCO3 ABG pH ABG Total CO2 ABG O2 Saturation ABG Base Excess Michele Test ABG Potassium VBG pH 6.90 L* VBG pCO2 43 VBG HCO3 3.7 VBG Total CO2 9.7 L VBG O2 Sat (Calc) 29.4 L VBG Base Excess -24.3 L VBG Potassium 5.2 A-a O2 Difference Respiratory Index Glucose 306 H Lactate 13.5 H* Vent Mode Mechanical Rate FiO2 Tidal Volume PEEP Crit Value Called To Crit Value Called By Crit Value Read Back Blood Gas Notified Time Sodium 139.0 Potassium Chloride 107.0 Carbon Dioxide Anion Gap BUN Creatinine Est GFR ( Amer) Est GFR (Non-Af Amer) POC Glucose (mg/dL) 266 H Random Glucose Hemoglobin A1c Lactic Acid Calcium Phosphorus Magnesium Total Bilirubin AST ALT Alkaline Phosphatase Troponin I NT-Pro-B Natriuret Pep Total Protein Albumin Globulin Albumin/Globulin Ratio Amylase Lipase TSH 3rd Generation Plasma Cortisol PM Arterial Blood Potassium Venous Blood Potassium 5.2 Urine Color Urine Clarity Urine pH Ur Specific [place] Urine Protein Urine Glucose (UA) Urine Ketones Urine Blood Urine Nitrate Urine Bilirubin Urine Urobilinogen Ur Leukocyte Esterase Urine WBC (Auto) Urine RBC (Auto) Ur Squamous Epith Cells Urine Bacteria Hyaline Casts Urine Opiates Screen Urine Methadone Screen Ur Barbiturates Screen Ur Phencyclidine Scrn Ur Amphetamines Screen U Benzodiazepines Scrn U Oth Cocaine Metabols U Cannabinoids Screen B-Hydroxybutyrate Blood Type Blood Type Confirm Antibody Screen 03/06/18 03/06/18 03/06/18 14:29 16:00 17:33 WBC RBC Hgb Hct MCV MCH MCHC RDW Plt Count MPV Neut % (Auto) Lymph % (Auto) [place] % (Auto) Eos % (Auto) Baso % (Auto) Neut # (Auto) Lymph # (Auto) [place] # (Auto) Eos # (Auto) Baso # (Auto) Neutrophils % (Manual) Band Neutrophils % Lymphocytes % (Manual) Monocytes % (Manual) Myelocytes % Platelet Estimate Plt Clumps, EDTA Large Platelets Polychromasia Microcytosis (manual) Macrocytosis (manual) PT INR APTT Puncture Site Lfemoral pCO2 33 L pO2 39 L* HCO3 10.0 L ABG pH 7.12 L* ABG Total CO2 11.7 L ABG O2 Saturation 70.9 L ABG Base Excess -17.6 L Michele Test Na ABG Potassium 4.5 VBG pH VBG pCO2 VBG HCO3 VBG Total CO2 VBG O2 Sat (Calc) VBG Base Excess VBG Potassium A-a O2 Difference 633.0 Respiratory Index 16.2 Glucose 202 H Lactate 12.7 H* Vent Mode Mechanical Rate FiO2 100.0 Tidal Volume PEEP Crit Value Called To Dr dixon Crit Value Called By Justice Crit Value Read Back Y Blood Gas Notified Time 1600 Sodium 142.0 142 Potassium 4.0 Chloride 111.0 H 112 H Carbon Dioxide 13 L Anion Gap 22 H BUN 18 H Creatinine 0.6 L Est GFR ( Amer) > 60 Est GFR (Non-Af Amer) > 60 POC Glucose (mg/dL) Random Glucose 153 H Hemoglobin A1c Lactic Acid Calcium 7.4 L Phosphorus 5.0 H Magnesium 1.5 L Total Bilirubin 1.3 AST 96 H D ALT 40 Alkaline Phosphatase 88 Troponin I < 0.0120 NT-Pro-B Natriuret Pep 4330 H Total Protein 4.1 L Albumin 1.7 L D Globulin 2.4 Albumin/Globulin Ratio 0.7 L Amylase 32 Lipase 32 TSH 3rd Generation 7.32 H Plasma Cortisol PM Arterial Blood Potassium 4.5 Venous Blood Potassium Urine Color Urine Clarity Urine pH Ur Specific [place] Urine Protein Urine Glucose (UA) Urine Ketones Urine Blood Urine Nitrate Urine Bilirubin Urine Urobilinogen Ur Leukocyte Esterase Urine WBC (Auto) Urine RBC (Auto) Ur Squamous Epith Cells Urine Bacteria Hyaline Casts Urine Opiates Screen Negative Urine Methadone Screen Negative Ur Barbiturates Screen Negative Ur Phencyclidine Scrn Negative Ur Amphetamines Screen Negative U Benzodiazepines Scrn Negative U Oth Cocaine Metabols Negative U Cannabinoids Screen Negative B-Hydroxybutyrate 0.37 H Blood Type Blood Type Confirm Antibody Screen 03/06/18 03/06/18 03/06/18 17:33 17:33 17:33 WBC 34.8 H RBC 2.53 L Hgb 7.9 L D Hct 24.9 L MCV 98.6 D MCH 31.1 H MCHC 31.5 L RDW 17.0 H Plt Count 469 H D MPV 7.9 Neut % (Auto) 88.2 H Lymph % (Auto) 7.5 L [place] % (Auto) 4.1 Eos % (Auto) 0.0 Baso % (Auto) 0.2 Neut # (Auto) 30.7 H Lymph # (Auto) 2.6 [place] # (Auto) 1.4 H Eos # (Auto) 0.0 Baso # (Auto) 0.1 Neutrophils % (Manual) 46 L Band Neutrophils % 32 H* Lymphocytes % (Manual) 11 L Monocytes % (Manual) 11 H Myelocytes % Platelet Estimate Normal Plt Clumps, EDTA Large Platelets Present Polychromasia Slight Microcytosis (manual) Slight Macrocytosis (manual) PT INR APTT Puncture Site pCO2 pO2 HCO3 ABG pH ABG Total CO2 ABG O2 Saturation ABG Base Excess Michele Test ABG Potassium VBG pH VBG pCO2 VBG HCO3 VBG Total CO2 VBG O2 Sat (Calc) VBG Base Excess VBG Potassium A-a O2 Difference Respiratory Index Glucose Lactate Vent Mode Mechanical Rate FiO2 Tidal Volume PEEP Crit Value Called To Crit Value Called By Crit Value Read Back Blood Gas Notified Time Sodium Potassium Chloride Carbon Dioxide Anion Gap BUN Creatinine Est GFR ( Amer) Est GFR (Non-Af Amer) POC Glucose (mg/dL) Random Glucose Hemoglobin A1c 6.9 H Lactic Acid Calcium Phosphorus Magnesium Total Bilirubin AST ALT Alkaline Phosphatase Troponin I NT-Pro-B Natriuret Pep Total Protein Albumin Globulin Albumin/Globulin Ratio Amylase Lipase TSH 3rd Generation Plasma Cortisol PM 51.9 H Arterial Blood Potassium Venous Blood Potassium Urine Color Urine Clarity Urine pH Ur Specific [place] Urine Protein Urine Glucose (UA) Urine Ketones Urine Blood Urine Nitrate Urine Bilirubin Urine Urobilinogen Ur Leukocyte Esterase Urine WBC (Auto) Urine RBC (Auto) Ur Squamous Epith Cells Urine Bacteria Hyaline Casts Urine Opiates Screen Urine Methadone Screen Ur Barbiturates Screen Ur Phencyclidine Scrn Ur Amphetamines Screen U Benzodiazepines Scrn U Oth Cocaine Metabols U Cannabinoids Screen B-Hydroxybutyrate Blood Type Blood Type Confirm Antibody Screen 03/06/18 03/06/18 03/06/18 17:34 18:52 19:23 WBC RBC Hgb Hct MCV MCH MCHC RDW Plt Count MPV Neut % (Auto) Lymph % (Auto) [place] % (Auto) Eos % (Auto) Baso % (Auto) Neut # (Auto) Lymph # (Auto) [place] # (Auto) Eos # (Auto) Baso # (Auto) Neutrophils % (Manual) Band Neutrophils % Lymphocytes % (Manual) Monocytes % (Manual) Myelocytes % Platelet Estimate Plt Clumps, EDTA Large Platelets Polychromasia Microcytosis (manual) Macrocytosis (manual) PT INR APTT Puncture Site Lr pCO2 25 L pO2 94 HCO3 12.9 L ABG pH 7.23 L ABG Total CO2 11.3 L ABG O2 Saturation 99.9 H ABG Base Excess -15.3 L Michele Test Unable ABG Potassium 3.4 L VBG pH VBG pCO2 VBG HCO3 VBG Total CO2 VBG O2 Sat (Calc) VBG Base Excess VBG Potassium A-a O2 Difference 231.0 Respiratory Index 2.5 Glucose 153 H Lactate 11.4 H* Vent Mode Mechanical Rate FiO2 50.0 Tidal Volume PEEP Crit Value Called To Dr dixon Crit Value Called By Justice lee Crit Value Read Back Y Blood Gas Notified Time 1737 Sodium 146.0 Potassium Chloride 118.0 H Carbon Dioxide Anion Gap BUN Creatinine Est GFR ( Amer) Est GFR (Non-Af Amer) POC Glucose (mg/dL) 191 H Random Glucose Hemoglobin A1c Lactic Acid Calcium Phosphorus Magnesium Total Bilirubin AST ALT Alkaline Phosphatase Troponin I NT-Pro-B Natriuret Pep Total Protein Albumin Globulin Albumin/Globulin Ratio Amylase Lipase TSH 3rd Generation Plasma Cortisol PM Arterial Blood Potassium 3.4 L Venous Blood Potassium Urine Color Urine Clarity Urine pH Ur Specific [place] Urine Protein Urine Glucose (UA) Urine Ketones Urine Blood Urine Nitrate Urine Bilirubin Urine Urobilinogen Ur Leukocyte Esterase Urine WBC (Auto) Urine RBC (Auto) Ur Squamous Epith Cells Urine Bacteria Hyaline Casts Urine Opiates Screen Urine Methadone Screen Ur Barbiturates Screen Ur Phencyclidine Scrn Ur Amphetamines Screen U Benzodiazepines Scrn U Oth Cocaine Metabols U Cannabinoids Screen B-Hydroxybutyrate Blood Type A POSITIVE Blood Type Confirm A POSITIVE Antibody Screen Negative 03/06/18 03/06/18 03/06/18 19:52 21:59 22:02 WBC RBC Hgb Hct MCV MCH MCHC RDW Plt Count MPV Neut % (Auto) Lymph % (Auto) [place] % (Auto) Eos % (Auto) Baso % (Auto) Neut # (Auto) Lymph # (Auto) [place] # (Auto) Eos # (Auto) Baso # (Auto) Neutrophils % (Manual) Band Neutrophils % Lymphocytes % (Manual) Monocytes % (Manual) Myelocytes % Platelet Estimate Plt Clumps, EDTA Large Platelets Polychromasia Microcytosis (manual) Macrocytosis (manual) PT INR APTT Puncture Site [place] pCO2 38 pO2 116 H HCO3 11.6 L ABG pH 7.10 L* ABG Total CO2 13.0 L ABG O2 Saturation 99.2 H ABG Base Excess -17.1 L Michele Test Na ABG Potassium 3.7 VBG pH VBG pCO2 VBG HCO3 VBG Total CO2 VBG O2 Sat (Calc) VBG Base Excess VBG Potassium A-a O2 Difference 264.0 Respiratory Index 2.3 Glucose 154 H Lactate 10.7 H* Vent Mode Prvc Mechanical Rate 12 FiO2 60.0 Tidal Volume 450 PEEP 5 Crit Value Called To Dr. jackson Crit Value Called By Justice lee Crit Value Read Back Y Blood Gas Notified Time 2205 Sodium 144.0 Potassium Chloride 114.0 H Carbon Dioxide Anion Gap BUN Creatinine Est GFR ( Amer) Est GFR (Non-Af Amer) POC Glucose (mg/dL) 162 H Random Glucose Hemoglobin A1c Lactic Acid 12.5 H* Calcium Phosphorus Magnesium Total Bilirubin AST ALT Alkaline Phosphatase Troponin I NT-Pro-B Natriuret Pep Total Protein Albumin Globulin Albumin/Globulin Ratio Amylase Lipase TSH 3rd Generation Plasma Cortisol PM Arterial Blood Potassium 3.7 Venous Blood Potassium Urine Color Urine Clarity Urine pH Ur Specific [place] Urine Protein Urine Glucose (UA) Urine Ketones Urine Blood Urine Nitrate Urine Bilirubin Urine Urobilinogen Ur Leukocyte Esterase Urine WBC (Auto) Urine RBC (Auto) Ur Squamous Epith Cells Urine Bacteria Hyaline Casts Urine Opiates Screen Urine Methadone Screen Ur Barbiturates Screen Ur Phencyclidine Scrn Ur Amphetamines Screen U Benzodiazepines Scrn U Oth Cocaine Metabols U Cannabinoids Screen B-Hydroxybutyrate Blood Type Blood Type Confirm Antibody Screen 03/06/18 03/07/18 03/07/18 23:48 02:06 05:04 WBC 24.7 H RBC 3.19 L Hgb 9.7 L Hct 29.5 L MCV 92.2 D MCH 30.4 MCHC 33.0 RDW 17.2 H Plt Count 396 MPV 7.8 Neut % (Auto) 84.7 H Lymph % (Auto) 10.4 L [place] % (Auto) 4.6 Eos % (Auto) 0.2 Baso % (Auto) 0.1 Neut # (Auto) 21.0 H Lymph # (Auto) 2.6 [place] # (Auto) 1.1 H Eos # (Auto) 0.1 Baso # (Auto) 0.0 Neutrophils % (Manual) Band Neutrophils % Lymphocytes % (Manual) Monocytes % (Manual) Myelocytes % Platelet Estimate Plt Clumps, EDTA Large Platelets Polychromasia Microcytosis (manual) Macrocytosis (manual) PT 17.1 H INR 1.6 APTT 165 H* Puncture Site pCO2 pO2 HCO3 ABG pH ABG Total CO2 ABG O2 Saturation ABG Base Excess Michele Test ABG Potassium VBG pH VBG pCO2 VBG HCO3 VBG Total CO2 VBG O2 Sat (Calc) VBG Base Excess VBG Potassium A-a O2 Difference Respiratory Index Glucose Lactate Vent Mode Mechanical Rate FiO2 Tidal Volume PEEP Crit Value Called To Crit Value Called By Crit Value Read Back Blood Gas Notified Time Sodium Potassium Chloride Carbon Dioxide Anion Gap BUN Creatinine Est GFR ( Amer) Est GFR (Non-Af Amer) POC Glucose (mg/dL) 144 H Random Glucose Hemoglobin A1c Lactic Acid Calcium Phosphorus Magnesium Total Bilirubin AST ALT Alkaline Phosphatase Troponin I NT-Pro-B Natriuret Pep Total Protein Albumin Globulin Albumin/Globulin Ratio Amylase Lipase TSH 3rd Generation Plasma Cortisol PM Arterial Blood Potassium Venous Blood Potassium Urine Color Urine Clarity Urine pH Ur Specific [place] Urine Protein Urine Glucose (UA) Urine Ketones Urine Blood Urine Nitrate Urine Bilirubin Urine Urobilinogen Ur Leukocyte Esterase Urine WBC (Auto) Urine RBC (Auto) Ur Squamous Epith Cells Urine Bacteria Hyaline Casts Urine Opiates Screen Urine Methadone Screen Ur Barbiturates Screen Ur Phencyclidine Scrn Ur Amphetamines Screen U Benzodiazepines Scrn U Oth Cocaine Metabols U Cannabinoids Screen B-Hydroxybutyrate Blood Type Blood Type Confirm Antibody Screen 03/07/18 03/07/18 03/07/18 05:04 05:04 05:30 WBC RBC Hgb Hct MCV MCH MCHC RDW Plt Count MPV Neut % (Auto) Lymph % (Auto) [place] % (Auto) Eos % (Auto) Baso % (Auto) Neut # (Auto) Lymph # (Auto) [place] # (Auto) Eos # (Auto) Baso # (Auto) Neutrophils % (Manual) Band Neutrophils % Lymphocytes % (Manual) Monocytes % (Manual) Myelocytes % Platelet Estimate Plt Clumps, EDTA Large Platelets Polychromasia Microcytosis (manual) Macrocytosis (manual) PT 16.9 H INR 1.5 APTT 72 H D Puncture Site pCO2 pO2 HCO3 ABG pH ABG Total CO2 ABG O2 Saturation ABG Base Excess Michele Test ABG Potassium VBG pH VBG pCO2 VBG HCO3 VBG Total CO2 VBG O2 Sat (Calc) VBG Base Excess VBG Potassium A-a O2 Difference Respiratory Index Glucose Lactate Vent Mode Mechanical Rate FiO2 Tidal Volume PEEP Crit Value Called To Crit Value Called By Crit Value Read Back Blood Gas Notified Time Sodium 143 Potassium 4.0 Chloride 110 H Carbon Dioxide 20 L Anion Gap 18 BUN 22 H Creatinine 0.7 Est GFR ( Amer) > 60 Est GFR (Non-Af Amer) > 60 POC Glucose (mg/dL) 169 H Random Glucose 160 H Hemoglobin A1c Lactic Acid Calcium 7.6 L Phosphorus 4.1 Magnesium 1.5 L Total Bilirubin 3.8 H AST 218 H D ALT 93 H D Alkaline Phosphatase 89 Troponin I NT-Pro-B Natriuret Pep Total Protein 5.1 L Albumin 2.8 L D Globulin 2.3 Albumin/Globulin Ratio 1.2 Amylase Lipase TSH 3rd Generation Plasma Cortisol PM Arterial Blood Potassium Venous Blood Potassium Urine Color Urine Clarity Urine pH Ur Specific [place] Urine Protein Urine Glucose (UA) Urine Ketones Urine Blood Urine Nitrate Urine Bilirubin Urine Urobilinogen Ur Leukocyte Esterase Urine WBC (Auto) Urine RBC (Auto) Ur Squamous Epith Cells Urine Bacteria Hyaline Casts Urine Opiates Screen Urine Methadone Screen Ur Barbiturates Screen Ur Phencyclidine Scrn Ur Amphetamines Screen U Benzodiazepines Scrn U Oth Cocaine Metabols U Cannabinoids Screen B-Hydroxybutyrate Blood Type Blood Type Confirm Antibody Screen 03/07/18 05:43 WBC RBC Hgb Hct MCV MCH MCHC RDW Plt Count MPV Neut % (Auto) Lymph % (Auto) [place] % (Auto) Eos % (Auto) Baso % (Auto) Neut # (Auto) Lymph # (Auto) [place] # (Auto) Eos # (Auto) Baso # (Auto) Neutrophils % (Manual) Band Neutrophils % Lymphocytes % (Manual) Monocytes % (Manual) Myelocytes % Platelet Estimate Plt Clumps, EDTA Large Platelets Polychromasia Microcytosis (manual) Macrocytosis (manual) PT INR APTT Puncture Site A-line pCO2 28 L pO2 116 H HCO3 22.9 ABG pH 7.46 H ABG Total CO2 20.8 L ABG O2 Saturation 99.8 H ABG Base Excess -2.6 L Michele Test Na ABG Potassium 3.8 VBG pH VBG pCO2 VBG HCO3 VBG Total CO2 VBG O2 Sat (Calc) VBG Base Excess VBG Potassium A-a O2 Difference 277.0 Respiratory Index 2.4 Glucose 167 H Lactate 5.9 H* Vent Mode Prvc Mechanical Rate 15 FiO2 60.0 Tidal Volume 450 PEEP 5 Crit Value Called To [facility] [employer] Crit Value Called By Tracey gibson rt Crit Value Read Back Y Blood Gas Notified Time 550 Sodium 144.0 Potassium Chloride 115.0 H Carbon Dioxide Anion Gap BUN Creatinine Est GFR ( Amer) Est GFR (Non-Af Amer) POC Glucose (mg/dL) Random Glucose Hemoglobin A1c Lactic Acid Calcium Phosphorus Magnesium Total Bilirubin AST ALT Alkaline Phosphatase Troponin I NT-Pro-B Natriuret Pep Total Protein Albumin Globulin Albumin/Globulin Ratio Amylase Lipase TSH 3rd Generation Plasma Cortisol PM Arterial Blood Potassium 3.8 Venous Blood Potassium Urine Color Urine Clarity Urine pH Ur Specific [place] Urine Protein Urine Glucose (UA) Urine Ketones Urine Blood Urine Nitrate Urine Bilirubin Urine Urobilinogen Ur Leukocyte Esterase Urine WBC (Auto) Urine RBC (Auto) Ur Squamous Epith Cells Urine Bacteria Hyaline Casts Urine Opiates Screen Urine Methadone Screen Ur Barbiturates Screen Ur Phencyclidine Scrn Ur Amphetamines Screen U Benzodiazepines Scrn U Oth Cocaine Metabols U Cannabinoids Screen B-Hydroxybutyrate Blood Type Blood Type Confirm Antibody Screen Assessment & Plan (1) Acute mesenteric ischemia Assessment and Plan: Patient presented with abdominal pain, nausea and vomiting. She quickly became hypotensive, and leukocytosis and acidosis were noted on admission labs. Initial CT scan showed pneumatosis involving the small bowel as well as portal venous gas. Laparotomy showed diffuse duskiness of the small bowel. Patient may have underlying atherosclerotic involvement of the aorta complicated by hypotension and low flow. There is no history of arrhythmias. Agree with plan for CT scan. Prognosis is poor. Status: Acute
--- NOTE | 2018-03-07 07:39 | CP.CCUPN ---
<Emy Morse - Last Filed: 03/07/18 07:37> CCU Subjective - Physician Review Events Since Last Encounter (Free Text): 03/07/18 07:37 Patient had ex-lap last night. Lysed adhesions. Small bowel compromised. Patient is intubated and on vent post-op. Subjective (Free Text): 03/07/18 07:38 Patient was seen and examined this morning. Critical Care Time Spent (in minutes): 35 CCU Objective - Vital Signs / Intake & Output Vital Signs (Last 4 hours): Vital Signs Temp Pulse Resp BP BP Pulse Ox 03/07/18 07:00 108 H 15 95/38 L 99 03/07/18 06:53 92/38 L 03/07/18 06:51 99.9 F H 03/07/18 06:50 110 H 16 99 03/07/18 06:49 111 H 16 107/40 L 99 03/07/18 06:40 112 H 15 99 03/07/18 06:30 112 H 15 99 03/07/18 06:29 112 H 12 106/38 L 99 03/07/18 06:20 115 H 15 99 03/07/18 06:10 116 H 15 99 03/07/18 06:09 103/40 L 03/07/18 06:00 122 H 17 99 03/07/18 05:50 123 H 22 99 03/07/18 05:49 124 H 19 108/37 L 99 03/07/18 05:45 101.1 F H 03/07/18 05:40 124 H 20 99 03/07/18 05:30 126 H 22 100 03/07/18 05:29 126 H 18 107/44 L 99 03/07/18 05:20 126 H 27 H 99 03/07/18 05:10 127 H 15 99 03/07/18 05:09 127 H 17 129/40 L 99 03/07/18 05:00 126 H 16 99/35 L 99 03/07/18 04:50 128 H 17 99 03/07/18 04:49 127 H 18 126/37 L 99 03/07/18 04:40 128 H 23 99 03/07/18 04:30 128 H 18 99 03/07/18 04:29 128 H 19 117/40 L 99 03/07/18 04:20 130 H 21 99 03/07/18 04:10 130 H 19 99 03/07/18 04:09 131 H 17 115/38 L 99 03/07/18 04:00 101.4 F H 130 H 18 117/37 L 99 03/07/18 03:50 130 H 19 99 03/07/18 03:49 130 H 22 119/40 L 99 03/07/18 03:40 131 H 22 99 Intake and Output (Last 8hrs): Intake & Output 03/06/18 03/07/18 03/07/18 22:59 06:59 14:59 Intake Total 55579 1985.5 180.0 Output Total 750 420 310 Balance 47287 1565.5 -130.0 Weight 169 lb 15.622 oz Intake: IV 1134 388 Intake, IV Amount 9920 1397.5 180.0 Distal Port Femoral 600 800 100 Left Antecubital 13.5 4.5 Medial Port Femoral 320 375.0 37.5 Proximal Port Femoral 9000 109 38 Right Hand 100 Oral 0 0 0 Blood Product 650 Red Blood Cells Cpd As1 325 Lr Unit [id number] Albumin 200 Output: Drainage 100 200 300 Right Nare 100 200 300 Urine 650 220 10 Urethral (Tran) 650 220 10 Other: Voiding Method Indwelling Catheter # Bowel Movements 0 0 - Medications Active Medications: Active Medications Generic Name Dose Route Start Last Admin Trade Name Freq PRN Reason Stop Dose Admin Dextrose 0 ml 03/06/18 15:02 Dextrose 50% Inj IV STAT PRN Hypoglycemia Protocol Protocol Dextrose 0 gm 03/06/18 15:02 Glutose 15 PO ONCE PRN Hypoglycemia Protocol Protocol Glucagon 0 mg 03/06/18 15:02 Glucagen Diagnostic Kit IM STAT PRN Hypoglycemia Protocol Protocol Piperacillin Sod/Tazobactam 100 mls @ 200 mls/hr 03/06/18 16:00 03/07/18 03:30 Sod 3.375 gm/ Sodium Chloride IVPB 200 mls/hr Q6H ARPIT Administration Protocol Dextrose 1,000 mls @ 0 mls/hr 03/06/18 15:02 Dextrose 5% In Water 1000 Ml IV .Q0M PRN Hypoglycemia Protocol Protocol Per Protocol Sodium Bicarbonate 175 meq/ 1,075 mls @ 100 mls/hr 03/06/18 22:15 03/07/18 00:08 Dextrose IV 100 mls/hr .[id number] ARPIT Administration Norepinephrine Bitartrate 8 mg 508 mls @ 15.24 mls/hr 03/06/18 23:00 03/07/18 02:00 / Sodium Chloride IV 20 mcg/min .Q24H PRN 76.2 mls/hr TITRATE PER MD ORDER Titration Protocol 4 MCG/MIN Heparin Sodium/Sodium Chloride 25,000 units in 250 mls @ 9.253 mls/hr 03/06/18 23:55 03/07/18 04:00 Heparin 27571 Units/250ml 1/2 Normal Saline IV 6 units/kg/hr .Q24H PRN 4.627 mls/hr PROTOCOL Titration Protocol 12 UNITS/KG/HR Fentanyl Citrate 2,500 mcg/ 250 mls @ 15.42 mls/hr 03/07/18 02:15 03/07/18 05:00 Sodium Chloride IV 5 mcg/kg/hr .[id number] PRN 38.56 mls/hr Titration Protocol 2 MCG/KG/HR Meropenem 1 gm/ Sodium 100 mls @ 100 mls/hr 03/07/18 07:15 Chloride IVPB Q8H [facility] Protocol Insulin Aspart 0 unit 03/06/18 18:00 03/07/18 05:52 Novolog SC Not Given Q6H [facility]PIT Protocol Morphine Sulfate 2 mg 03/07/18 06:47 03/07/18 07:00 Morphine IVP 2 mg Q3 PRN Administration Pain, severe (8-10) - Patient Studies Lab Studies: Lab Studies 03/07/18 03/07/18 03/07/18 Range/Units 05:43 05:30 05:04 WBC (4.8-10.8) K/uL RBC (3.80-5.20) Mil/uL Hgb (11.0-16.0) g/dL Hct (34.0-47.0) % MCV (81.0-99.0) fL MCH (27.0-31.0) pg MCHC (33.0-37.0) g/dL RDW (11.5-14.5) % Plt Count (130-400) K/uL MPV (7.2-11.7) fL Neut % (Auto) (50.0-75.0) % Lymph % (Auto) (20.0-40.0) % Haakon % (Auto) (0.0-10.0) % Eos % (Auto) (0.0-4.0) % Baso % (Auto) (0.0-2.0) % Neut # (Auto) (1.8-7.0) K/uL Lymph # (Auto) (1.0-4.3) K/uL Haakon # (Auto) (0.0-0.8) K/uL Eos # (Auto) (0.0-0.7) K/uL Baso # (Auto) (0.0-0.2) K/uL Neutrophils % (Manual) (50-75) % Band Neutrophils % (0-2) % Lymphocytes % (Manual) (20-40) % Monocytes % (Manual) (0-10) % Myelocytes % (0-0) % Platelet Estimate (NORMAL) Plt Clumps, EDTA Large Platelets Polychromasia Microcytosis (manual) Macrocytosis (manual) PT (9.7-12.2) SECONDS INR APTT (21-34) SECONDS Puncture Site A-line pCO2 28 L (35-45) mm/Hg pO2 116 H (30-55) mm/Hg HCO3 22.9 (21-28) mmol/L ABG pH 7.46 H (7.35-7.45) ABG Total CO2 20.8 L (22-28) mmol/L ABG O2 Saturation 99.8 H (95-98) % ABG Base Excess -2.6 L (-2.0-3.0) mmol/L Michele Test Na ABG Potassium 3.8 (3.6-5.2) mmol/L VBG pH (7.32-7.43) VBG pCO2 (40-60) mmHg VBG HCO3 mmol/L VBG Total CO2 (22-28) mmol/L VBG O2 Sat (Calc) (40-65) % VBG Base Excess (0.0-2.0) mmol/L VBG Potassium (3.6-5.2) mmol/L A-a O2 Difference 277.0 mm/Hg Respiratory Index 2.4 Glucose 167 H (65-105) mg/dl Lactate 5.9 H* (0.7-2.1) mmol/L Vent Mode Prvc Mechanical Rate 15 FiO2 60.0 % Tidal Volume 450 PEEP 5 Crit Value Called To [facility] multicut line operator Crit Value Called By Tracey gibson rt Crit Value Read Back Y Blood Gas Notified Time 550 Sodium 144.0 143 (132-148) mmol/L Potassium 4.0 (3.6-5.2) mmol/L Chloride 115.0 H 110 H (98-107) mmol/L Carbon Dioxide 20 L (22-30) mmol/L Anion Gap 18 (10-20) BUN 22 H (7-17) mg/dL Creatinine 0.7 (0.7-1.2) mg/dL Est GFR ( Amer) > 60 Est GFR (Non-Af Amer) > 60 POC Glucose (mg/dL) 169 H (65-110) mg/dL Random Glucose 160 H (65-105) mg/dL Hemoglobin A1c (4.2-6.5) % Lactic Acid (0.7-2.1) mmol/L Calcium 7.6 L (8.6-10.4) mg/dl Phosphorus 4.1 (2.5-4.5) mg/dL Magnesium 1.5 L (1.6-2.3) mg/dL Total Bilirubin 3.8 H (0.2-1.3) mg/dL AST 218 H D (14-36) U/L ALT 93 H D (9-52) U/L Alkaline Phosphatase 89 (38-126) U/L Troponin I (0.00-0.120) ng/mL NT-Pro-B Natriuret Pep (0-900) pg/mL Total Protein 5.1 L (6.3-8.3) g/dL Albumin 2.8 L D (3.5-5.0) g/dL Globulin 2.3 (2.2-3.9) gm/dL Albumin/Globulin Ratio 1.2 (1.0-2.1) Amylase (30-110) U/L Lipase (23-300) U/L TSH 3rd Generation (0.46-4.68) mIU/L Plasma Cortisol PM (1.7-14.1) ug/dL Arterial Blood Potassium 3.8 (3.6-5.2) mmol/L Venous Blood Potassium (3.6-5.2) mmol/L Urine Color (YELLOW) Urine Clarity (Clear) Urine pH (5.0-8.0) Ur Specific [place] (1.003-1.030) Urine Protein (NEGATIVE) mg/dL Urine Glucose (UA) (Normal) mg/dL Urine Ketones (NEGATIVE) mg/dL Urine Blood (NEGATIVE) Urine Nitrate (NEGATIVE) Urine Bilirubin (NEGATIVE) Urine Urobilinogen (0.2-1.0) mg/dL Ur Leukocyte Esterase (Negative) Annabelle/uL Urine WBC (Auto) (0-5) /hpf Urine RBC (Auto) (0-3) /hpf Ur Squamous Epith Cells (0-5) /hpf Urine Bacteria (<OCC) Hyaline Casts (0-2) /lpf Urine Opiates Screen (NEGATIVE) Urine Methadone Screen (NEGATIVE) Ur Barbiturates Screen (NEGATIVE) Ur Phencyclidine Scrn (NEGATIVE) Ur Amphetamines Screen (NEGATIVE) U Benzodiazepines Scrn (NEGATIVE) U Oth Cocaine Metabols (NEGATIVE) U Cannabinoids Screen (NEGATIVE) B-Hydroxybutyrate (0.02-0.27) mM Blood Type Blood Type Confirm Antibody Screen 03/07/18 03/07/18 03/07/18 Range/Units 05:04 05:04 02:06 WBC 24.7 H (4.8-10.8) K/uL RBC 3.19 L (3.80-5.20) Mil/uL Hgb 9.7 L (11.0-16.0) g/dL Hct 29.5 L (34.0-47.0) % MCV 92.2 D (81.0-99.0) fL MCH 30.4 (27.0-31.0) pg MCHC 33.0 (33.0-37.0) g/dL RDW 17.2 H (11.5-14.5) % Plt Count 396 (130-400) K/uL MPV 7.8 (7.2-11.7) fL Neut % (Auto) 84.7 H (50.0-75.0) % Lymph % (Auto) 10.4 L (20.0-40.0) % Haakon % (Auto) 4.6 (0.0-10.0) % Eos % (Auto) 0.2 (0.0-4.0) % Baso % (Auto) 0.1 (0.0-2.0) % Neut # (Auto) 21.0 H (1.8-7.0) K/uL Lymph # (Auto) 2.6 (1.0-4.3) K/uL Haakon # (Auto) 1.1 H (0.0-0.8) K/uL Eos # (Auto) 0.1 (0.0-0.7) K/uL Baso # (Auto) 0.0 (0.0-0.2) K/uL Neutrophils % (Manual) (50-75) % Band Neutrophils % (0-2) % Lymphocytes % (Manual) (20-40) % Monocytes % (Manual) (0-10) % Myelocytes % (0-0) % Platelet Estimate (NORMAL) Plt Clumps, EDTA Large Platelets Polychromasia Microcytosis (manual) Macrocytosis (manual) PT 16.9 H 17.1 H (9.7-12.2) SECONDS INR 1.5 1.6 APTT 72 H D 165 H* (21-34) SECONDS Puncture Site pCO2 (35-45) mm/Hg pO2 (30-55) mm/Hg HCO3 (21-28) mmol/L ABG pH (7.35-7.45) ABG Total CO2 (22-28) mmol/L ABG O2 Saturation (95-98) % ABG Base Excess (-2.0-3.0) mmol/L Michele Test ABG Potassium (3.6-5.2) mmol/L VBG pH (7.32-7.43) VBG pCO2 (40-60) mmHg VBG HCO3 mmol/L VBG Total CO2 (22-28) mmol/L VBG O2 Sat (Calc) (40-65) % VBG Base Excess (0.0-2.0) mmol/L VBG Potassium (3.6-5.2) mmol/L A-a O2 Difference mm/Hg Respiratory Index Glucose (65-105) mg/dl Lactate (0.7-2.1) mmol/L Vent Mode Mechanical Rate FiO2 % Tidal Volume PEEP Crit Value Called To Crit Value Called By Crit Value Read Back Blood Gas Notified Time Sodium (132-148) mmol/L Potassium (3.6-5.2) mmol/L Chloride (98-107) mmol/L Carbon Dioxide (22-30) mmol/L Anion Gap (10-20) BUN (7-17) mg/dL Creatinine (0.7-1.2) mg/dL Est GFR ( Amer) Est GFR (Non-Af Amer) POC Glucose (mg/dL) (65-110) mg/dL Random Glucose (65-105) mg/dL Hemoglobin A1c (4.2-6.5) % Lactic Acid (0.7-2.1) mmol/L Calcium (8.6-10.4) mg/dl Phosphorus (2.5-4.5) mg/dL Magnesium (1.6-2.3) mg/dL Total Bilirubin (0.2-1.3) mg/dL AST (14-36) U/L ALT (9-52) U/L Alkaline Phosphatase (38-126) U/L Troponin I (0.00-0.120) ng/mL NT-Pro-B Natriuret Pep (0-900) pg/mL Total Protein (6.3-8.3) g/dL Albumin (3.5-5.0) g/dL Globulin (2.2-3.9) gm/dL Albumin/Globulin Ratio (1.0-2.1) Amylase (30-110) U/L Lipase (23-300) U/L TSH 3rd Generation (0.46-4.68) mIU/L Plasma Cortisol PM (1.7-14.1) ug/dL Arterial Blood Potassium (3.6-5.2) mmol/L Venous Blood Potassium (3.6-5.2) mmol/L Urine Color (YELLOW) Urine Clarity (Clear) Urine pH (5.0-8.0) Ur Specific [place] (1.003-1.030) Urine Protein (NEGATIVE) mg/dL Urine Glucose (UA) (Normal) mg/dL Urine Ketones (NEGATIVE) mg/dL Urine Blood (NEGATIVE) Urine Nitrate (NEGATIVE) Urine Bilirubin (NEGATIVE) Urine Urobilinogen (0.2-1.0) mg/dL Ur Leukocyte Esterase (Negative) Annabelle/uL Urine WBC (Auto) (0-5) /hpf Urine RBC (Auto) (0-3) /hpf Ur Squamous Epith Cells (0-5) /hpf Urine Bacteria (<OCC) Hyaline Casts (0-2) /lpf Urine Opiates Screen (NEGATIVE) Urine Methadone Screen (NEGATIVE) Ur Barbiturates Screen (NEGATIVE) Ur Phencyclidine Scrn (NEGATIVE) Ur Amphetamines Screen (NEGATIVE) U Benzodiazepines Scrn (NEGATIVE) U Oth Cocaine Metabols (NEGATIVE) U Cannabinoids Screen (NEGATIVE) B-Hydroxybutyrate (0.02-0.27) mM Blood Type Blood Type Confirm Antibody Screen 03/06/18 03/06/18 03/06/18 Range/Units 23:48 22:02 21:59 WBC (4.8-10.8) K/uL RBC (3.80-5.20) Mil/uL Hgb (11.0-16.0) g/dL Hct (34.0-47.0) % MCV (81.0-99.0) fL MCH (27.0-31.0) pg MCHC (33.0-37.0) g/dL RDW (11.5-14.5) % Plt Count (130-400) K/uL MPV (7.2-11.7) fL Neut % (Auto) (50.0-75.0) % Lymph % (Auto) (20.0-40.0) % Haakon % (Auto) (0.0-10.0) % Eos % (Auto) (0.0-4.0) % Baso % (Auto) (0.0-2.0) % Neut # (Auto) (1.8-7.0) K/uL Lymph # (Auto) (1.0-4.3) K/uL Haakon # (Auto) (0.0-0.8) K/uL Eos # (Auto) (0.0-0.7) K/uL Baso # (Auto) (0.0-0.2) K/uL Neutrophils % (Manual) (50-75) % Band Neutrophils % (0-2) % Lymphocytes % (Manual) (20-40) % Monocytes % (Manual) (0-10) % Myelocytes % (0-0) % Platelet Estimate (NORMAL) Plt Clumps, EDTA Large Platelets Polychromasia Microcytosis (manual) Macrocytosis (manual) PT (9.7-12.2) SECONDS INR APTT (21-34) SECONDS Puncture Site [place] pCO2 38 (35-45) mm/Hg pO2 116 H (30-55) mm/Hg HCO3 11.6 L (21-28) mmol/L ABG pH 7.10 L* (7.35-7.45) ABG Total CO2 13.0 L (22-28) mmol/L ABG O2 Saturation 99.2 H (95-98) % ABG Base Excess -17.1 L (-2.0-3.0) mmol/L Michele Test Na ABG Potassium 3.7 (3.6-5.2) mmol/L VBG pH (7.32-7.43) VBG pCO2 (40-60) mmHg VBG HCO3 mmol/L VBG Total CO2 (22-28) mmol/L VBG O2 Sat (Calc) (40-65) % VBG Base Excess (0.0-2.0) mmol/L VBG Potassium (3.6-5.2) mmol/L A-a O2 Difference 264.0 mm/Hg Respiratory Index 2.3 Glucose 154 H (65-105) mg/dl Lactate 10.7 H* (0.7-2.1) mmol/L Vent Mode Prvc Mechanical Rate 12 FiO2 60.0 % Tidal Volume 450 PEEP 5 Crit Value Called To Dr. jackson Crit Value Called By Justice lee Crit Value Read Back Y Blood Gas Notified Time 2204 Sodium 144.0 (132-148) mmol/L Potassium (3.6-5.2) mmol/L Chloride 114.0 H (98-107) mmol/L Carbon Dioxide (22-30) mmol/L Anion Gap (10-20) BUN (7-17) mg/dL Creatinine (0.7-1.2) mg/dL Est GFR ( Amer) Est GFR (Non-Af Amer) POC Glucose (mg/dL) 144 H 162 H (65-110) mg/dL Random Glucose (65-105) mg/dL Hemoglobin A1c (4.2-6.5) % Lactic Acid (0.7-2.1) mmol/L Calcium (8.6-10.4) mg/dl Phosphorus (2.5-4.5) mg/dL Magnesium (1.6-2.3) mg/dL Total Bilirubin (0.2-1.3) mg/dL AST (14-36) U/L ALT (9-52) U/L Alkaline Phosphatase (38-126) U/L Troponin I (0.00-0.120) ng/mL NT-Pro-B Natriuret Pep (0-900) pg/mL Total Protein (6.3-8.3) g/dL Albumin (3.5-5.0) g/dL Globulin (2.2-3.9) gm/dL Albumin/Globulin Ratio (1.0-2.1) Amylase (30-110) U/L Lipase (23-300) U/L TSH 3rd Generation (0.46-4.68) mIU/L Plasma Cortisol PM (1.7-14.1) ug/dL Arterial Blood Potassium 3.7 (3.6-5.2) mmol/L Venous Blood Potassium (3.6-5.2) mmol/L Urine Color (YELLOW) Urine Clarity (Clear) Urine pH (5.0-8.0) Ur Specific [place] (1.003-1.030) Urine Protein (NEGATIVE) mg/dL Urine Glucose (UA) (Normal) mg/dL Urine Ketones (NEGATIVE) mg/dL Urine Blood (NEGATIVE) Urine Nitrate (NEGATIVE) Urine Bilirubin (NEGATIVE) Urine Urobilinogen (0.2-1.0) mg/dL Ur Leukocyte Esterase (Negative) Annabelle/uL Urine WBC (Auto) (0-5) /hpf Urine RBC (Auto) (0-3) /hpf Ur Squamous Epith Cells (0-5) /hpf Urine Bacteria (<OCC) Hyaline Casts (0-2) /lpf Urine Opiates Screen (NEGATIVE) Urine Methadone Screen (NEGATIVE) Ur Barbiturates Screen (NEGATIVE) Ur Phencyclidine Scrn (NEGATIVE) Ur Amphetamines Screen (NEGATIVE) U Benzodiazepines Scrn (NEGATIVE) U Oth Cocaine Metabols (NEGATIVE) U Cannabinoids Screen (NEGATIVE) B-Hydroxybutyrate (0.02-0.27) mM Blood Type Blood Type Confirm Antibody Screen 03/06/18 03/06/18 03/06/18 Range/Units 19:52 19:23 18:52 WBC (4.8-10.8) K/uL RBC (3.80-5.20) Mil/uL Hgb (11.0-16.0) g/dL Hct (34.0-47.0) % MCV (81.0-99.0) fL MCH (27.0-31.0) pg MCHC (33.0-37.0) g/dL RDW (11.5-14.5) % Plt Count (130-400) K/uL MPV (7.2-11.7) fL Neut % (Auto) (50.0-75.0) % Lymph % (Auto) (20.0-40.0) % Haakon % (Auto) (0.0-10.0) % Eos % (Auto) (0.0-4.0) % Baso % (Auto) (0.0-2.0) % Neut # (Auto) (1.8-7.0) K/uL Lymph # (Auto) (1.0-4.3) K/uL Haakon # (Auto) (0.0-0.8) K/uL Eos # (Auto) (0.0-0.7) K/uL Baso # (Auto) (0.0-0.2) K/uL Neutrophils % (Manual) (50-75) % Band Neutrophils % (0-2) % Lymphocytes % (Manual) (20-40) % Monocytes % (Manual) (0-10) % Myelocytes % (0-0) % Platelet Estimate (NORMAL) Plt Clumps, EDTA Large Platelets Polychromasia Microcytosis (manual) Macrocytosis (manual) PT (9.7-12.2) SECONDS INR APTT (21-34) SECONDS Puncture Site pCO2 (35-45) mm/Hg pO2 (30-55) mm/Hg HCO3 (21-28) mmol/L ABG pH (7.35-7.45) ABG Total CO2 (22-28) mmol/L ABG O2 Saturation (95-98) % ABG Base Excess (-2.0-3.0) mmol/L Michele Test ABG Potassium (3.6-5.2) mmol/L VBG pH (7.32-7.43) VBG pCO2 (40-60) mmHg VBG HCO3 mmol/L VBG Total CO2 (22-28) mmol/L VBG O2 Sat (Calc) (40-65) % VBG Base Excess (0.0-2.0) mmol/L VBG Potassium (3.6-5.2) mmol/L A-a O2 Difference mm/Hg Respiratory Index Glucose (65-105) mg/dl Lactate (0.7-2.1) mmol/L Vent Mode Mechanical Rate FiO2 % Tidal Volume PEEP Crit Value Called To Crit Value Called By Crit Value Read Back Blood Gas Notified Time Sodium (132-148) mmol/L Potassium (3.6-5.2) mmol/L Chloride (98-107) mmol/L Carbon Dioxide (22-30) mmol/L Anion Gap (10-20) BUN (7-17) mg/dL Creatinine (0.7-1.2) mg/dL Est GFR ( Amer) Est GFR (Non-Af Amer) POC Glucose (mg/dL) 191 H (65-110) mg/dL Random Glucose (65-105) mg/dL Hemoglobin A1c (4.2-6.5) % Lactic Acid 12.5 H* (0.7-2.1) mmol/L Calcium (8.6-10.4) mg/dl Phosphorus (2.5-4.5) mg/dL Magnesium (1.6-2.3) mg/dL Total Bilirubin (0.2-1.3) mg/dL AST (14-36) U/L ALT (9-52) U/L Alkaline Phosphatase (38-126) U/L Troponin I (0.00-0.120) ng/mL NT-Pro-B Natriuret Pep (0-900) pg/mL Total Protein (6.3-8.3) g/dL Albumin (3.5-5.0) g/dL Globulin (2.2-3.9) gm/dL Albumin/Globulin Ratio (1.0-2.1) Amylase (30-110) U/L Lipase (23-300) U/L TSH 3rd Generation (0.46-4.68) mIU/L Plasma Cortisol PM (1.7-14.1) ug/dL Arterial Blood Potassium (3.6-5.2) mmol/L Venous Blood Potassium (3.6-5.2) mmol/L Urine Color (YELLOW) Urine Clarity (Clear) Urine pH (5.0-8.0) Ur Specific [place] (1.003-1.030) Urine Protein (NEGATIVE) mg/dL Urine Glucose (UA) (Normal) mg/dL Urine Ketones (NEGATIVE) mg/dL Urine Blood (NEGATIVE) Urine Nitrate (NEGATIVE) Urine Bilirubin (NEGATIVE) Urine Urobilinogen (0.2-1.0) mg/dL Ur Leukocyte Esterase (Negative) Annabelle/uL Urine WBC (Auto) (0-5) /hpf Urine RBC (Auto) (0-3) /hpf Ur Squamous Epith Cells (0-5) /hpf Urine Bacteria (<OCC) Hyaline Casts (0-2) /lpf Urine Opiates Screen (NEGATIVE) Urine Methadone Screen (NEGATIVE) Ur Barbiturates Screen (NEGATIVE) Ur Phencyclidine Scrn (NEGATIVE) Ur Amphetamines Screen (NEGATIVE) U Benzodiazepines Scrn (NEGATIVE) U Oth Cocaine Metabols (NEGATIVE) U Cannabinoids Screen (NEGATIVE) B-Hydroxybutyrate (0.02-0.27) mM Blood Type A POSITIVE Blood Type Confirm A POSITIVE Antibody Screen Negative 03/06/18 03/06/18 03/06/18 Range/Units 17:34 17:33 17:33 WBC 34.8 H (4.8-10.8) K/uL RBC 2.53 L (3.80-5.20) Mil/uL Hgb 7.9 L D (11.0-16.0) g/dL Hct 24.9 L (34.0-47.0) % MCV 98.6 D (81.0-99.0) fL MCH 31.1 H (27.0-31.0) pg MCHC 31.5 L (33.0-37.0) g/dL RDW 17.0 H (11.5-14.5) % Plt Count 469 H D (130-400) K/uL MPV 7.9 (7.2-11.7) fL Neut % (Auto) 88.2 H (50.0-75.0) % Lymph % (Auto) 7.5 L (20.0-40.0) % Haakon % (Auto) 4.1 (0.0-10.0) % Eos % (Auto) 0.0 (0.0-4.0) % Baso % (Auto) 0.2 (0.0-2.0) % Neut # (Auto) 30.7 H (1.8-7.0) K/uL Lymph # (Auto) 2.6 (1.0-4.3) K/uL Haakon # (Auto) 1.4 H (0.0-0.8) K/uL Eos # (Auto) 0.0 (0.0-0.7) K/uL Baso # (Auto) 0.1 (0.0-0.2) K/uL Neutrophils % (Manual) 46 L (50-75) % Band Neutrophils % 32 H* (0-2) % Lymphocytes % (Manual) 11 L (20-40) % Monocytes % (Manual) 11 H (0-10) % Myelocytes % (0-0) % Platelet Estimate Normal (NORMAL) Plt Clumps, EDTA Large Platelets Present Polychromasia Slight Microcytosis (manual) Slight Macrocytosis (manual) PT (9.7-12.2) SECONDS INR APTT (21-34) SECONDS Puncture Site Lr pCO2 25 L (35-45) mm/Hg pO2 94 (30-55) mm/Hg HCO3 12.9 L (21-28) mmol/L ABG pH 7.23 L (7.35-7.45) ABG Total CO2 11.3 L (22-28) mmol/L ABG O2 Saturation 99.9 H (95-98) % ABG Base Excess -15.3 L (-2.0-3.0) mmol/L Michele Test Unable ABG Potassium 3.4 L (3.6-5.2) mmol/L VBG pH (7.32-7.43) VBG pCO2 (40-60) mmHg VBG HCO3 mmol/L VBG Total CO2 (22-28) mmol/L VBG O2 Sat (Calc) (40-65) % VBG Base Excess (0.0-2.0) mmol/L VBG Potassium (3.6-5.2) mmol/L A-a O2 Difference 231.0 mm/Hg Respiratory Index 2.5 Glucose 153 H (65-105) mg/dl Lactate 11.4 H* (0.7-2.1) mmol/L Vent Mode Mechanical Rate FiO2 50.0 % Tidal Volume PEEP Crit Value Called To Dr dixon Crit Value Called By Justice lee Crit Value Read Back Y Blood Gas Notified Time 1737 Sodium 146.0 (132-148) mmol/L Potassium (3.6-5.2) mmol/L Chloride 118.0 H (98-107) mmol/L Carbon Dioxide (22-30) mmol/L Anion Gap (10-20) BUN (7-17) mg/dL Creatinine (0.7-1.2) mg/dL Est GFR ( Amer) Est GFR (Non-Af Amer) POC Glucose (mg/dL) (65-110) mg/dL Random Glucose (65-105) mg/dL Hemoglobin A1c (4.2-6.5) % Lactic Acid (0.7-2.1) mmol/L Calcium (8.6-10.4) mg/dl Phosphorus (2.5-4.5) mg/dL Magnesium (1.6-2.3) mg/dL Total Bilirubin (0.2-1.3) mg/dL AST (14-36) U/L ALT (9-52) U/L Alkaline Phosphatase (38-126) U/L Troponin I (0.00-0.120) ng/mL NT-Pro-B Natriuret Pep (0-900) pg/mL Total Protein (6.3-8.3) g/dL Albumin (3.5-5.0) g/dL Globulin (2.2-3.9) gm/dL Albumin/Globulin Ratio (1.0-2.1) Amylase (30-110) U/L Lipase (23-300) U/L TSH 3rd Generation (0.46-4.68) mIU/L Plasma Cortisol PM 51.9 H (1.7-14.1) ug/dL Arterial Blood Potassium 3.4 L (3.6-5.2) mmol/L Venous Blood Potassium (3.6-5.2) mmol/L Urine Color (YELLOW) Urine Clarity (Clear) Urine pH (5.0-8.0) Ur Specific [place] (1.003-1.030) Urine Protein (NEGATIVE) mg/dL Urine Glucose (UA) (Normal) mg/dL Urine Ketones (NEGATIVE) mg/dL Urine Blood (NEGATIVE) Urine Nitrate (NEGATIVE) Urine Bilirubin (NEGATIVE) Urine Urobilinogen (0.2-1.0) mg/dL Ur Leukocyte Esterase (Negative) Annabelle/uL Urine WBC (Auto) (0-5) /hpf Urine RBC (Auto) (0-3) /hpf Ur Squamous Epith Cells (0-5) /hpf Urine Bacteria (<OCC) Hyaline Casts (0-2) /lpf Urine Opiates Screen (NEGATIVE) Urine Methadone Screen (NEGATIVE) Ur Barbiturates Screen (NEGATIVE) Ur Phencyclidine Scrn (NEGATIVE) Ur Amphetamines Screen (NEGATIVE) U Benzodiazepines Scrn (NEGATIVE) U Oth Cocaine Metabols (NEGATIVE) U Cannabinoids Screen (NEGATIVE) B-Hydroxybutyrate (0.02-0.27) mM Blood Type Blood Type Confirm Antibody Screen 03/06/18 03/06/18 03/06/18 Range/Units 17:33 17:33 16:00 WBC (4.8-10.8) K/uL RBC (3.80-5.20) Mil/uL Hgb (11.0-16.0) g/dL Hct (34.0-47.0) % MCV (81.0-99.0) fL MCH (27.0-31.0) pg MCHC (33.0-37.0) g/dL RDW (11.5-14.5) % Plt Count (130-400) K/uL MPV (7.2-11.7) fL Neut % (Auto) (50.0-75.0) % Lymph % (Auto) (20.0-40.0) % Haakon % (Auto) (0.0-10.0) % Eos % (Auto) (0.0-4.0) % Baso % (Auto) (0.0-2.0) % Neut # (Auto) (1.8-7.0) K/uL Lymph # (Auto) (1.0-4.3) K/uL Haakon # (Auto) (0.0-0.8) K/uL Eos # (Auto) (0.0-0.7) K/uL Baso # (Auto) (0.0-0.2) K/uL Neutrophils % (Manual) (50-75) % Band Neutrophils % (0-2) % Lymphocytes % (Manual) (20-40) % Monocytes % (Manual) (0-10) % Myelocytes % (0-0) % Platelet Estimate (NORMAL) Plt Clumps, EDTA Large Platelets Polychromasia Microcytosis (manual) Macrocytosis (manual) PT (9.7-12.2) SECONDS INR APTT (21-34) SECONDS Puncture Site Lfemoral pCO2 33 L (35-45) mm/Hg pO2 39 L* (30-55) mm/Hg HCO3 10.0 L (21-28) mmol/L ABG pH 7.12 L* (7.35-7.45) ABG Total CO2 11.7 L (22-28) mmol/L ABG O2 Saturation 70.9 L (95-98) % ABG Base Excess -17.6 L (-2.0-3.0) mmol/L Michele Test Na ABG Potassium 4.5 (3.6-5.2) mmol/L VBG pH (7.32-7.43) VBG pCO2 (40-60) mmHg VBG HCO3 mmol/L VBG Total CO2 (22-28) mmol/L VBG O2 Sat (Calc) (40-65) % VBG Base Excess (0.0-2.0) mmol/L VBG Potassium (3.6-5.2) mmol/L A-a O2 Difference 633.0 mm/Hg Respiratory Index 16.2 Glucose 202 H (65-105) mg/dl Lactate 12.7 H* (0.7-2.1) mmol/L Vent Mode Mechanical Rate FiO2 100.0 % Tidal Volume PEEP Crit Value Called To Dr dixon Crit Value Called By Justice Crit Value Read Back Y Blood Gas Notified Time 1600 Sodium 142 142.0 (132-148) mmol/L Potassium 4.0 (3.6-5.2) mmol/L Chloride 112 H 111.0 H (98-107) mmol/L Carbon Dioxide 13 L (22-30) mmol/L Anion Gap 22 H (10-20) BUN 18 H (7-17) mg/dL Creatinine 0.6 L (0.7-1.2) mg/dL Est GFR ( Amer) > 60 Est GFR (Non-Af Amer) > 60 POC Glucose (mg/dL) (65-110) mg/dL Random Glucose 153 H (65-105) mg/dL Hemoglobin A1c 6.9 H (4.2-6.5) % Lactic Acid (0.7-2.1) mmol/L Calcium 7.4 L (8.6-10.4) mg/dl Phosphorus 5.0 H (2.5-4.5) mg/dL Magnesium 1.5 L (1.6-2.3) mg/dL Total Bilirubin 1.3 (0.2-1.3) mg/dL AST 96 H D (14-36) U/L ALT 40 (9-52) U/L Alkaline Phosphatase 88 (38-126) U/L Troponin I < 0.0120 (0.00-0.120) ng/mL NT-Pro-B Natriuret Pep 4330 H (0-900) pg/mL Total Protein 4.1 L (6.3-8.3) g/dL Albumin 1.7 L D (3.5-5.0) g/dL Globulin 2.4 (2.2-3.9) gm/dL Albumin/Globulin Ratio 0.7 L (1.0-2.1) Amylase 32 (30-110) U/L Lipase 32 (23-300) U/L TSH 3rd Generation 7.32 H (0.46-4.68) mIU/L Plasma Cortisol PM (1.7-14.1) ug/dL Arterial Blood Potassium 4.5 (3.6-5.2) mmol/L Venous Blood Potassium (3.6-5.2) mmol/L Urine Color (YELLOW) Urine Clarity (Clear) Urine pH (5.0-8.0) Ur Specific [place] (1.003-1.030) Urine Protein (NEGATIVE) mg/dL Urine Glucose (UA) (Normal) mg/dL Urine Ketones (NEGATIVE) mg/dL Urine Blood (NEGATIVE) Urine Nitrate (NEGATIVE) Urine Bilirubin (NEGATIVE) Urine Urobilinogen (0.2-1.0) mg/dL Ur Leukocyte Esterase (Negative) Annabelle/uL Urine WBC (Auto) (0-5) /hpf Urine RBC (Auto) (0-3) /hpf Ur Squamous Epith Cells (0-5) /hpf Urine Bacteria (<OCC) Hyaline Casts (0-2) /lpf Urine Opiates Screen (NEGATIVE) Urine Methadone Screen (NEGATIVE) Ur Barbiturates Screen (NEGATIVE) Ur Phencyclidine Scrn (NEGATIVE) Ur Amphetamines Screen (NEGATIVE) U Benzodiazepines Scrn (NEGATIVE) U Oth Cocaine Metabols (NEGATIVE) U Cannabinoids Screen (NEGATIVE) B-Hydroxybutyrate 0.37 H (0.02-0.27) mM Blood Type Blood Type Confirm Antibody Screen 03/06/18 03/06/18 03/06/18 Range/Units 14:29 14:13 13:11 WBC (4.8-10.8) K/uL RBC (3.80-5.20) Mil/uL Hgb (11.0-16.0) g/dL Hct (34.0-47.0) % MCV (81.0-99.0) fL MCH (27.0-31.0) pg MCHC (33.0-37.0) g/dL RDW (11.5-14.5) % Plt Count (130-400) K/uL MPV (7.2-11.7) fL Neut % (Auto) (50.0-75.0) % Lymph % (Auto) (20.0-40.0) % Haakon % (Auto) (0.0-10.0) % Eos % (Auto) (0.0-4.0) % Baso % (Auto) (0.0-2.0) % Neut # (Auto) (1.8-7.0) K/uL Lymph # (Auto) (1.0-4.3) K/uL Haakon # (Auto) (0.0-0.8) K/uL Eos # (Auto) (0.0-0.7) K/uL Baso # (Auto) (0.0-0.2) K/uL Neutrophils % (Manual) (50-75) % Band Neutrophils % (0-2) % Lymphocytes % (Manual) (20-40) % Monocytes % (Manual) (0-10) % Myelocytes % (0-0) % Platelet Estimate (NORMAL) Plt Clumps, EDTA Large Platelets Polychromasia Microcytosis (manual) Macrocytosis (manual) PT (9.7-12.2) SECONDS INR APTT (21-34) SECONDS Puncture Site pCO2 (35-45) mm/Hg pO2 25 L (30-55) mm/Hg HCO3 (21-28) mmol/L ABG pH (7.35-7.45) ABG Total CO2 (22-28) mmol/L ABG O2 Saturation (95-98) % ABG Base Excess (-2.0-3.0) mmol/L Michele Test ABG Potassium (3.6-5.2) mmol/L VBG pH 6.90 L* (7.32-7.43) VBG pCO2 43 (40-60) mmHg VBG HCO3 3.7 mmol/L VBG Total CO2 9.7 L (22-28) mmol/L VBG O2 Sat (Calc) 29.4 L (40-65) % VBG Base Excess -24.3 L (0.0-2.0) mmol/L VBG Potassium 5.2 (3.6-5.2) mmol/L A-a O2 Difference mm/Hg Respiratory Index Glucose 306 H (65-105) mg/dl Lactate 13.5 H* (0.7-2.1) mmol/L Vent Mode Mechanical Rate FiO2 % Tidal Volume PEEP Crit Value Called To Crit Value Called By Crit Value Read Back Blood Gas Notified Time Sodium 139.0 (132-148) mmol/L Potassium (3.6-5.2) mmol/L Chloride 107.0 (98-107) mmol/L Carbon Dioxide (22-30) mmol/L Anion Gap (10-20) BUN (7-17) mg/dL Creatinine (0.7-1.2) mg/dL Est GFR ( Amer) Est GFR (Non-Af Amer) POC Glucose (mg/dL) 266 H (65-110) mg/dL Random Glucose (65-105) mg/dL Hemoglobin A1c (4.2-6.5) % Lactic Acid (0.7-2.1) mmol/L Calcium (8.6-10.4) mg/dl Phosphorus (2.5-4.5) mg/dL Magnesium (1.6-2.3) mg/dL Total Bilirubin (0.2-1.3) mg/dL AST (14-36) U/L ALT (9-52) U/L Alkaline Phosphatase (38-126) U/L Troponin I (0.00-0.120) ng/mL NT-Pro-B Natriuret Pep (0-900) pg/mL Total Protein (6.3-8.3) g/dL Albumin (3.5-5.0) g/dL Globulin (2.2-3.9) gm/dL Albumin/Globulin Ratio (1.0-2.1) Amylase (30-110) U/L Lipase (23-300) U/L TSH 3rd Generation (0.46-4.68) mIU/L Plasma Cortisol PM (1.7-14.1) ug/dL Arterial Blood Potassium (3.6-5.2) mmol/L Venous Blood Potassium 5.2 (3.6-5.2) mmol/L Urine Color (YELLOW) Urine Clarity (Clear) Urine pH (5.0-8.0) Ur Specific [place] (1.003-1.030) Urine Protein (NEGATIVE) mg/dL Urine Glucose (UA) (Normal) mg/dL Urine Ketones (NEGATIVE) mg/dL Urine Blood (NEGATIVE) Urine Nitrate (NEGATIVE) Urine Bilirubin (NEGATIVE) Urine Urobilinogen (0.2-1.0) mg/dL Ur Leukocyte Esterase (Negative) Annabelle/uL Urine WBC (Auto) (0-5) /hpf Urine RBC (Auto) (0-3) /hpf Ur Squamous Epith Cells (0-5) /hpf Urine Bacteria (<OCC) Hyaline Casts (0-2) /lpf Urine Opiates Screen Negative (NEGATIVE) Urine Methadone Screen Negative (NEGATIVE) Ur Barbiturates Screen Negative (NEGATIVE) Ur Phencyclidine Scrn Negative (NEGATIVE) Ur Amphetamines Screen Negative (NEGATIVE) U Benzodiazepines Scrn Negative (NEGATIVE) U Oth Cocaine Metabols Negative (NEGATIVE) U Cannabinoids Screen Negative (NEGATIVE) B-Hydroxybutyrate (0.02-0.27) mM Blood Type Blood Type Confirm Antibody Screen 03/06/18 03/06/18 03/06/18 Range/Units 12:45 12:45 12:45 WBC 29.5 H D (4.8-10.8) K/uL RBC 3.50 L (3.80-5.20) Mil/uL Hgb 11.1 (11.0-16.0) g/dL Hct 35.5 (34.0-47.0) % MCV 101.6 H D (81.0-99.0) fL MCH 31.7 H (27.0-31.0) pg MCHC 31.2 L (33.0-37.0) g/dL RDW 18.0 H (11.5-14.5) % Plt Count 679 H D (130-400) K/uL MPV 8.1 (7.2-11.7) fL Neut % (Auto) 88.1 H (50.0-75.0) % Lymph % (Auto) 8.8 L (20.0-40.0) % Haakon % (Auto) 2.7 (0.0-10.0) % Eos % (Auto) 0.1 (0.0-4.0) % Baso % (Auto) 0.3 (0.0-2.0) % Neut # (Auto) 25.9 H (1.8-7.0) K/uL Lymph # (Auto) 2.6 (1.0-4.3) K/uL Haakon # (Auto) 0.8 (0.0-0.8) K/uL Eos # (Auto) 0.0 (0.0-0.7) K/uL Baso # (Auto) 0.1 (0.0-0.2) K/uL Neutrophils % (Manual) 61 (50-75) % Band Neutrophils % 29 H* (0-2) % Lymphocytes % (Manual) 8 L (20-40) % Monocytes % (Manual) 1 (0-10) % Myelocytes % 1 H (0-0) % Platelet Estimate Markedly increased H (NORMAL) Plt Clumps, EDTA Present Large Platelets Present Polychromasia Microcytosis (manual) Macrocytosis (manual) Slight PT 13.3 H (9.7-12.2) SECONDS INR 1.2 APTT (21-34) SECONDS Puncture Site pCO2 (35-45) mm/Hg pO2 (30-55) mm/Hg HCO3 (21-28) mmol/L ABG pH (7.35-7.45) ABG Total CO2 (22-28) mmol/L ABG O2 Saturation (95-98) % ABG Base Excess (-2.0-3.0) mmol/L Michele Test ABG Potassium (3.6-5.2) mmol/L VBG pH (7.32-7.43) VBG pCO2 (40-60) mmHg VBG HCO3 mmol/L VBG Total CO2 (22-28) mmol/L VBG O2 Sat (Calc) (40-65) % VBG Base Excess (0.0-2.0) mmol/L VBG Potassium (3.6-5.2) mmol/L A-a O2 Difference mm/Hg Respiratory Index Glucose (65-105) mg/dl Lactate (0.7-2.1) mmol/L Vent Mode Mechanical Rate FiO2 % Tidal Volume PEEP Crit Value Called To Crit Value Called By Crit Value Read Back Blood Gas Notified Time Sodium 136 (132-148) mmol/L Potassium 5.8 H (3.6-5.2) mmol/L Chloride 106 (98-107) mmol/L Carbon Dioxide 8 L* D (22-30) mmol/L Anion Gap 27 H (10-20) BUN 23 H (7-17) mg/dL Creatinine 0.9 (0.7-1.2) mg/dL Est GFR ( Amer) > 60 Est GFR (Non-Af Amer) > 60 POC Glucose (mg/dL) (65-110) mg/dL Random Glucose 353 H (65-105) mg/dL Hemoglobin A1c (4.2-6.5) % Lactic Acid (0.7-2.1) mmol/L Calcium 9.6 (8.6-10.4) mg/dl Phosphorus (2.5-4.5) mg/dL Magnesium (1.6-2.3) mg/dL Total Bilirubin 1.3 (0.2-1.3) mg/dL AST 52 H D (14-36) U/L ALT 20 (9-52) U/L Alkaline Phosphatase 154 H D (38-126) U/L Troponin I < 0.0120 (0.00-0.120) ng/mL NT-Pro-B Natriuret Pep (0-900) pg/mL Total Protein 6.2 L (6.3-8.3) g/dL Albumin 2.9 L (3.5-5.0) g/dL Globulin 3.3 (2.2-3.9) gm/dL Albumin/Globulin Ratio 0.9 L (1.0-2.1) Amylase (30-110) U/L Lipase 39 (23-300) U/L TSH 3rd Generation (0.46-4.68) mIU/L Plasma Cortisol PM (1.7-14.1) ug/dL Arterial Blood Potassium (3.6-5.2) mmol/L Venous Blood Potassium (3.6-5.2) mmol/L Urine Color (YELLOW) Urine Clarity (Clear) Urine pH (5.0-8.0) Ur Specific [place] (1.003-1.030) Urine Protein (NEGATIVE) mg/dL Urine Glucose (UA) (Normal) mg/dL Urine Ketones (NEGATIVE) mg/dL Urine Blood (NEGATIVE) Urine Nitrate (NEGATIVE) Urine Bilirubin (NEGATIVE) Urine Urobilinogen (0.2-1.0) mg/dL Ur Leukocyte Esterase (Negative) Annabelle/uL Urine WBC (Auto) (0-5) /hpf Urine RBC (Auto) (0-3) /hpf Ur Squamous Epith Cells (0-5) /hpf Urine Bacteria (<OCC) Hyaline Casts (0-2) /lpf Urine Opiates Screen (NEGATIVE) Urine Methadone Screen (NEGATIVE) Ur Barbiturates Screen (NEGATIVE) Ur Phencyclidine Scrn (NEGATIVE) Ur Amphetamines Screen (NEGATIVE) U Benzodiazepines Scrn (NEGATIVE) U Oth Cocaine Metabols (NEGATIVE) U Cannabinoids Screen (NEGATIVE) B-Hydroxybutyrate (0.02-0.27) mM Blood Type Blood Type Confirm Antibody Screen 03/06/18 Range/Units 12:18 WBC (4.8-10.8) K/uL RBC (3.80-5.20) Mil/uL Hgb (11.0-16.0) g/dL Hct (34.0-47.0) % MCV (81.0-99.0) fL MCH (27.0-31.0) pg MCHC (33.0-37.0) g/dL RDW (11.5-14.5) % Plt Count (130-400) K/uL MPV (7.2-11.7) fL Neut % (Auto) (50.0-75.0) % Lymph % (Auto) (20.0-40.0) % Haakon % (Auto) (0.0-10.0) % Eos % (Auto) (0.0-4.0) % Baso % (Auto) (0.0-2.0) % Neut # (Auto) (1.8-7.0) K/uL Lymph # (Auto) (1.0-4.3) K/uL Haakon # (Auto) (0.0-0.8) K/uL Eos # (Auto) (0.0-0.7) K/uL Baso # (Auto) (0.0-0.2) K/uL Neutrophils % (Manual) (50-75) % Band Neutrophils % (0-2) % Lymphocytes % (Manual) (20-40) % Monocytes % (Manual) (0-10) % Myelocytes % (0-0) % Platelet Estimate (NORMAL) Plt Clumps, EDTA Large Platelets Polychromasia Microcytosis (manual) Macrocytosis (manual) PT (9.7-12.2) SECONDS INR APTT (21-34) SECONDS Puncture Site pCO2 (35-45) mm/Hg pO2 (30-55) mm/Hg HCO3 (21-28) mmol/L ABG pH (7.35-7.45) ABG Total CO2 (22-28) mmol/L ABG O2 Saturation (95-98) % ABG Base Excess (-2.0-3.0) mmol/L Michele Test ABG Potassium (3.6-5.2) mmol/L VBG pH (7.32-7.43) VBG pCO2 (40-60) mmHg VBG HCO3 mmol/L VBG Total CO2 (22-28) mmol/L VBG O2 Sat (Calc) (40-65) % VBG Base Excess (0.0-2.0) mmol/L VBG Potassium (3.6-5.2) mmol/L A-a O2 Difference mm/Hg Respiratory Index Glucose (65-105) mg/dl Lactate (0.7-2.1) mmol/L Vent Mode Mechanical Rate FiO2 % Tidal Volume PEEP Crit Value Called To Crit Value Called By Crit Value Read Back Blood Gas Notified Time Sodium (132-148) mmol/L Potassium (3.6-5.2) mmol/L Chloride (98-107) mmol/L Carbon Dioxide (22-30) mmol/L Anion Gap (10-20) BUN (7-17) mg/dL Creatinine (0.7-1.2) mg/dL Est GFR ( Amer) Est GFR (Non-Af Amer) POC Glucose (mg/dL) (65-110) mg/dL Random Glucose (65-105) mg/dL Hemoglobin A1c (4.2-6.5) % Lactic Acid (0.7-2.1) mmol/L Calcium (8.6-10.4) mg/dl Phosphorus (2.5-4.5) mg/dL Magnesium (1.6-2.3) mg/dL Total Bilirubin (0.2-1.3) mg/dL AST (14-36) U/L ALT (9-52) U/L Alkaline Phosphatase (38-126) U/L Troponin I (0.00-0.120) ng/mL NT-Pro-B Natriuret Pep (0-900) pg/mL Total Protein (6.3-8.3) g/dL Albumin (3.5-5.0) g/dL Globulin (2.2-3.9) gm/dL Albumin/Globulin Ratio (1.0-2.1) Amylase (30-110) U/L Lipase (23-300) U/L TSH 3rd Generation (0.46-4.68) mIU/L Plasma Cortisol PM (1.7-14.1) ug/dL Arterial Blood Potassium (3.6-5.2) mmol/L Venous Blood Potassium (3.6-5.2) mmol/L Urine Color [place] (YELLOW) Urine Clarity Clear (Clear) Urine pH 5.0 (5.0-8.0) Ur Specific [place] 1.024 (1.003-1.030) Urine Protein 1+ H (NEGATIVE) mg/dL Urine Glucose (UA) 2+ H (Normal) mg/dL Urine Ketones Trace (NEGATIVE) mg/dL Urine Blood Negative (NEGATIVE) Urine Nitrate Negative (NEGATIVE) Urine Bilirubin Negative (NEGATIVE) Urine Urobilinogen Normal (0.2-1.0) mg/dL Ur Leukocyte Esterase Neg (Negative) Annabelle/uL Urine WBC (Auto) 4 (0-5) /hpf Urine RBC (Auto) 2 (0-3) /hpf Ur Squamous Epith Cells < 1 (0-5) /hpf Urine Bacteria Rare (<OCC) Hyaline Casts 6-10 H (0-2) /lpf Urine Opiates Screen (NEGATIVE) Urine Methadone Screen (NEGATIVE) Ur Barbiturates Screen (NEGATIVE) Ur Phencyclidine Scrn (NEGATIVE) Ur Amphetamines Screen (NEGATIVE) U Benzodiazepines Scrn (NEGATIVE) U Oth Cocaine Metabols (NEGATIVE) U Cannabinoids Screen (NEGATIVE) B-Hydroxybutyrate (0.02-0.27) mM Blood Type Blood Type Confirm Antibody Screen Laboratory Results - last 24 hr 03/06/18 03/06/18 03/06/18 12:18 12:45 12:45 WBC 29.5 H D RBC 3.50 L Hgb 11.1 Hct 35.5 MCV 101.6 H D MCH 31.7 H MCHC 31.2 L RDW 18.0 H Plt Count 679 H D MPV 8.1 Neut % (Auto) 88.1 H Lymph % (Auto) 8.8 L Haakon % (Auto) 2.7 Eos % (Auto) 0.1 Baso % (Auto) 0.3 Neut # (Auto) 25.9 H Lymph # (Auto) 2.6 Haakon # (Auto) 0.8 Eos # (Auto) 0.0 Baso # (Auto) 0.1 Neutrophils % (Manual) 61 Band Neutrophils % 29 H* Lymphocytes % (Manual) 8 L Monocytes % (Manual) 1 Myelocytes % 1 H Platelet Estimate Markedly increased H Plt Clumps, EDTA Present Large Platelets Present Polychromasia Microcytosis (manual) Macrocytosis (manual) Slight PT INR APTT Puncture Site pCO2 pO2 HCO3 ABG pH ABG Total CO2 ABG O2 Saturation ABG Base Excess Michele Test ABG Potassium VBG pH VBG pCO2 VBG HCO3 VBG Total CO2 VBG O2 Sat (Calc) VBG Base Excess VBG Potassium A-a O2 Difference Respiratory Index Glucose Lactate Vent Mode Mechanical Rate FiO2 Tidal Volume PEEP Crit Value Called To Crit Value Called By Crit Value Read Back Blood Gas Notified Time Sodium 136 Potassium 5.8 H Chloride 106 Carbon Dioxide 8 L* D Anion Gap 27 H BUN 23 H Creatinine 0.9 Est GFR ( Amer) > 60 Est GFR (Non-Af Amer) > 60 POC Glucose (mg/dL) Random Glucose 353 H Hemoglobin A1c Lactic Acid Calcium 9.6 Phosphorus Magnesium Total Bilirubin 1.3 AST 52 H D ALT 20 Alkaline Phosphatase 154 H D Troponin I < 0.0120 NT-Pro-B Natriuret Pep Total Protein 6.2 L Albumin 2.9 L Globulin 3.3 Albumin/Globulin Ratio 0.9 L Amylase Lipase 39 TSH 3rd Generation Plasma Cortisol PM Arterial Blood Potassium Venous Blood Potassium Urine Color [place] Urine Clarity Clear Urine pH 5.0 Ur Specific [place] 1.024 Urine Protein 1+ H Urine Glucose (UA) 2+ H Urine Ketones Trace Urine Blood Negative Urine Nitrate Negative Urine Bilirubin Negative Urine Urobilinogen Normal Ur Leukocyte Esterase Neg Urine WBC (Auto) 4 Urine RBC (Auto) 2 Ur Squamous Epith Cells < 1 Urine Bacteria Rare Hyaline Casts 6-10 H Urine Opiates Screen Urine Methadone Screen Ur Barbiturates Screen Ur Phencyclidine Scrn Ur Amphetamines Screen U Benzodiazepines Scrn U Oth Cocaine Metabols U Cannabinoids Screen B-Hydroxybutyrate Blood Type Blood Type Confirm Antibody Screen 03/06/18 03/06/18 03/06/18 12:45 13:11 14:13 WBC RBC Hgb Hct MCV MCH MCHC RDW Plt Count MPV Neut % (Auto) Lymph % (Auto) [place] % (Auto) Eos % (Auto) Baso % (Auto) Neut # (Auto) Lymph # (Auto) Haakon # (Auto) Eos # (Auto) Baso # (Auto) Neutrophils % (Manual) Band Neutrophils % Lymphocytes % (Manual) Monocytes % (Manual) Myelocytes % Platelet Estimate Plt Clumps, EDTA Large Platelets Polychromasia Microcytosis (manual) Macrocytosis (manual) PT 13.3 H INR 1.2 APTT Puncture Site pCO2 pO2 25 L HCO3 ABG pH ABG Total CO2 ABG O2 Saturation ABG Base Excess Michele Test ABG Potassium VBG pH 6.90 L* VBG pCO2 43 VBG HCO3 3.7 VBG Total CO2 9.7 L VBG O2 Sat (Calc) 29.4 L VBG Base Excess -24.3 L VBG Potassium 5.2 A-a O2 Difference Respiratory Index Glucose 306 H Lactate 13.5 H* Vent Mode Mechanical Rate FiO2 Tidal Volume PEEP Crit Value Called To Crit Value Called By Crit Value Read Back Blood Gas Notified Time Sodium 139.0 Potassium Chloride 107.0 Carbon Dioxide Anion Gap BUN Creatinine Est GFR ( Amer) Est GFR (Non-Af Amer) POC Glucose (mg/dL) 266 H Random Glucose Hemoglobin A1c Lactic Acid Calcium Phosphorus Magnesium Total Bilirubin AST ALT Alkaline Phosphatase Troponin I NT-Pro-B Natriuret Pep Total Protein Albumin Globulin Albumin/Globulin Ratio Amylase Lipase TSH 3rd Generation Plasma Cortisol PM Arterial Blood Potassium Venous Blood Potassium 5.2 Urine Color Urine Clarity Urine pH Ur Specific [place] Urine Protein Urine Glucose (UA) Urine Ketones Urine Blood Urine Nitrate Urine Bilirubin Urine Urobilinogen Ur Leukocyte Esterase Urine WBC (Auto) Urine RBC (Auto) Ur Squamous Epith Cells Urine Bacteria Hyaline Casts Urine Opiates Screen Urine Methadone Screen Ur Barbiturates Screen Ur Phencyclidine Scrn Ur Amphetamines Screen U Benzodiazepines Scrn U Oth Cocaine Metabols U Cannabinoids Screen B-Hydroxybutyrate Blood Type Blood Type Confirm Antibody Screen 03/06/18 03/06/18 03/06/18 14:29 16:00 17:33 WBC RBC Hgb Hct MCV MCH MCHC RDW Plt Count MPV Neut % (Auto) Lymph % (Auto) [place] % (Auto) Eos % (Auto) Baso % (Auto) Neut # (Auto) Lymph # (Auto) Haakon # (Auto) Eos # (Auto) Baso # (Auto) Neutrophils % (Manual) Band Neutrophils % Lymphocytes % (Manual) Monocytes % (Manual) Myelocytes % Platelet Estimate Plt Clumps, EDTA Large Platelets Polychromasia Microcytosis (manual) Macrocytosis (manual) PT INR APTT Puncture Site Lfemoral pCO2 33 L pO2 39 L* HCO3 10.0 L ABG pH 7.12 L* ABG Total CO2 11.7 L ABG O2 Saturation 70.9 L ABG Base Excess -17.6 L Michele Test Na ABG Potassium 4.5 VBG pH VBG pCO2 VBG HCO3 VBG Total CO2 VBG O2 Sat (Calc) VBG Base Excess VBG Potassium A-a O2 Difference 633.0 Respiratory Index 16.2 Glucose 202 H Lactate 12.7 H* Vent Mode Mechanical Rate FiO2 100.0 Tidal Volume PEEP Crit Value Called To Dr dixon Crit Value Called By Justice Crit Value Read Back Y Blood Gas Notified Time 1600 Sodium 142.0 142 Potassium 4.0 Chloride 111.0 H 112 H Carbon Dioxide 13 L Anion Gap 22 H BUN 18 H Creatinine 0.6 L Est GFR ( Amer) > 60 Est GFR (Non-Af Amer) > 60 POC Glucose (mg/dL) Random Glucose 153 H Hemoglobin A1c Lactic Acid Calcium 7.4 L Phosphorus 5.0 H Magnesium 1.5 L Total Bilirubin 1.3 AST 96 H D ALT 40 Alkaline Phosphatase 88 Troponin I < 0.0120 NT-Pro-B Natriuret Pep 4330 H Total Protein 4.1 L Albumin 1.7 L D Globulin 2.4 Albumin/Globulin Ratio 0.7 L Amylase 32 Lipase 32 TSH 3rd Generation 7.32 H Plasma Cortisol PM Arterial Blood Potassium 4.5 Venous Blood Potassium Urine Color Urine Clarity Urine pH Ur Specific [place] Urine Protein Urine Glucose (UA) Urine Ketones Urine Blood Urine Nitrate Urine Bilirubin Urine Urobilinogen Ur Leukocyte Esterase Urine WBC (Auto) Urine RBC (Auto) Ur Squamous Epith Cells Urine Bacteria Hyaline Casts Urine Opiates Screen Negative Urine Methadone Screen Negative Ur Barbiturates Screen Negative Ur Phencyclidine Scrn Negative Ur Amphetamines Screen Negative U Benzodiazepines Scrn Negative U Oth Cocaine Metabols Negative U Cannabinoids Screen Negative B-Hydroxybutyrate 0.37 H Blood Type Blood Type Confirm Antibody Screen 03/06/18 03/06/18 03/06/18 17:33 17:33 17:33 WBC 34.8 H RBC 2.53 L Hgb 7.9 L D Hct 24.9 L MCV 98.6 D MCH 31.1 H MCHC 31.5 L RDW 17.0 H Plt Count 469 H D MPV 7.9 Neut % (Auto) 88.2 H Lymph % (Auto) 7.5 L Haakon % (Auto) 4.1 Eos % (Auto) 0.0 Baso % (Auto) 0.2 Neut # (Auto) 30.7 H Lymph # (Auto) 2.6 Haakon # (Auto) 1.4 H Eos # (Auto) 0.0 Baso # (Auto) 0.1 Neutrophils % (Manual) 46 L Band Neutrophils % 32 H* Lymphocytes % (Manual) 11 L Monocytes % (Manual) 11 H Myelocytes % Platelet Estimate Normal Plt Clumps, EDTA Large Platelets Present Polychromasia Slight Microcytosis (manual) Slight Macrocytosis (manual) PT INR APTT Puncture Site pCO2 pO2 HCO3 ABG pH ABG Total CO2 ABG O2 Saturation ABG Base Excess Michele Test ABG Potassium VBG pH VBG pCO2 VBG HCO3 VBG Total CO2 VBG O2 Sat (Calc) VBG Base Excess VBG Potassium A-a O2 Difference Respiratory Index Glucose Lactate Vent Mode Mechanical Rate FiO2 Tidal Volume PEEP Crit Value Called To Crit Value Called By Crit Value Read Back Blood Gas Notified Time Sodium Potassium Chloride Carbon Dioxide Anion Gap BUN Creatinine Est GFR ( Amer) Est GFR (Non-Af Amer) POC Glucose (mg/dL) Random Glucose Hemoglobin A1c 6.9 H Lactic Acid Calcium Phosphorus Magnesium Total Bilirubin AST ALT Alkaline Phosphatase Troponin I NT-Pro-B Natriuret Pep Total Protein Albumin Globulin Albumin/Globulin Ratio Amylase Lipase TSH 3rd Generation Plasma Cortisol PM 51.9 H Arterial Blood Potassium Venous Blood Potassium Urine Color Urine Clarity Urine pH Ur Specific [place] Urine Protein Urine Glucose (UA) Urine Ketones Urine Blood Urine Nitrate Urine Bilirubin Urine Urobilinogen Ur Leukocyte Esterase Urine WBC (Auto) Urine RBC (Auto) Ur Squamous Epith Cells Urine Bacteria Hyaline Casts Urine Opiates Screen Urine Methadone Screen Ur Barbiturates Screen Ur Phencyclidine Scrn Ur Amphetamines Screen U Benzodiazepines Scrn U Oth Cocaine Metabols U Cannabinoids Screen B-Hydroxybutyrate Blood Type Blood Type Confirm Antibody Screen 03/06/18 03/06/18 03/06/18 17:34 18:52 19:23 WBC RBC Hgb Hct MCV MCH MCHC RDW Plt Count MPV Neut % (Auto) Lymph % (Auto) [place] % (Auto) Eos % (Auto) Baso % (Auto) Neut # (Auto) Lymph # (Auto) Haakon # (Auto) Eos # (Auto) Baso # (Auto) Neutrophils % (Manual) Band Neutrophils % Lymphocytes % (Manual) Monocytes % (Manual) Myelocytes % Platelet Estimate Plt Clumps, EDTA Large Platelets Polychromasia Microcytosis (manual) Macrocytosis (manual) PT INR APTT Puncture Site Lr pCO2 25 L pO2 94 HCO3 12.9 L ABG pH 7.23 L ABG Total CO2 11.3 L ABG O2 Saturation 99.9 H ABG Base Excess -15.3 L Michele Test Unable ABG Potassium 3.4 L VBG pH VBG pCO2 VBG HCO3 VBG Total CO2 VBG O2 Sat (Calc) VBG Base Excess VBG Potassium A-a O2 Difference 231.0 Respiratory Index 2.5 Glucose 153 H Lactate 11.4 H* Vent Mode Mechanical Rate FiO2 50.0 Tidal Volume PEEP Crit Value Called To Dr dixon Crit Value Called By Justice lee Crit Value Read Back Y Blood Gas Notified Time 1737 Sodium 146.0 Potassium Chloride 118.0 H Carbon Dioxide Anion Gap BUN Creatinine Est GFR ( Amer) Est GFR (Non-Af Amer) POC Glucose (mg/dL) 191 H Random Glucose Hemoglobin A1c Lactic Acid Calcium Phosphorus Magnesium Total Bilirubin AST ALT Alkaline Phosphatase Troponin I NT-Pro-B Natriuret Pep Total Protein Albumin Globulin Albumin/Globulin Ratio Amylase Lipase TSH 3rd Generation Plasma Cortisol PM Arterial Blood Potassium 3.4 L Venous Blood Potassium Urine Color Urine Clarity Urine pH Ur Specific [place] Urine Protein Urine Glucose (UA) Urine Ketones Urine Blood Urine Nitrate Urine Bilirubin Urine Urobilinogen Ur Leukocyte Esterase Urine WBC (Auto) Urine RBC (Auto) Ur Squamous Epith Cells Urine Bacteria Hyaline Casts Urine Opiates Screen Urine Methadone Screen Ur Barbiturates Screen Ur Phencyclidine Scrn Ur Amphetamines Screen U Benzodiazepines Scrn U Oth Cocaine Metabols U Cannabinoids Screen B-Hydroxybutyrate Blood Type A POSITIVE Blood Type Confirm A POSITIVE Antibody Screen Negative 03/06/18 03/06/18 03/06/18 19:52 21:59 22:02 WBC RBC Hgb Hct MCV MCH MCHC RDW Plt Count MPV Neut % (Auto) Lymph % (Auto) [place] % (Auto) Eos % (Auto) Baso % (Auto) Neut # (Auto) Lymph # (Auto) [place] # (Auto) Eos # (Auto) Baso # (Auto) Neutrophils % (Manual) Band Neutrophils % Lymphocytes % (Manual) Monocytes % (Manual) Myelocytes % Platelet Estimate Plt Clumps, EDTA Large Platelets Polychromasia Microcytosis (manual) Macrocytosis (manual) PT INR APTT Puncture Site Tsering pCO2 38 pO2 116 H HCO3 11.6 L ABG pH 7.10 L* ABG Total CO2 13.0 L ABG O2 Saturation 99.2 H ABG Base Excess -17.1 L Michele Test Na ABG Potassium 3.7 VBG pH VBG pCO2 VBG HCO3 VBG Total CO2 VBG O2 Sat (Calc) VBG Base Excess VBG Potassium A-a O2 Difference 264.0 Respiratory Index 2.3 Glucose 154 H Lactate 10.7 H* Vent Mode Prvc Mechanical Rate 12 FiO2 60.0 Tidal Volume 450 PEEP 5 Crit Value Called To Dr. jackson Crit Value Called By Justice lee Crit Value Read Back Y Blood Gas Notified Time 2205 Sodium 144.0 Potassium Chloride 114.0 H Carbon Dioxide Anion Gap BUN Creatinine Est GFR ( Amer) Est GFR (Non-Af Amer) POC Glucose (mg/dL) 162 H Random Glucose Hemoglobin A1c Lactic Acid 12.5 H* Calcium Phosphorus Magnesium Total Bilirubin AST ALT Alkaline Phosphatase Troponin I NT-Pro-B Natriuret Pep Total Protein Albumin Globulin Albumin/Globulin Ratio Amylase Lipase TSH 3rd Generation Plasma Cortisol PM Arterial Blood Potassium 3.7 Venous Blood Potassium Urine Color Urine Clarity Urine pH Ur Specific [place] Urine Protein Urine Glucose (UA) Urine Ketones Urine Blood Urine Nitrate Urine Bilirubin Urine Urobilinogen Ur Leukocyte Esterase Urine WBC (Auto) Urine RBC (Auto) Ur Squamous Epith Cells Urine Bacteria Hyaline Casts Urine Opiates Screen Urine Methadone Screen Ur Barbiturates Screen Ur Phencyclidine Scrn Ur Amphetamines Screen U Benzodiazepines Scrn U Oth Cocaine Metabols U Cannabinoids Screen B-Hydroxybutyrate Blood Type Blood Type Confirm Antibody Screen 03/06/18 03/07/18 03/07/18 23:48 02:06 05:04 WBC 24.7 H RBC 3.19 L Hgb 9.7 L Hct 29.5 L MCV 92.2 D MCH 30.4 MCHC 33.0 RDW 17.2 H Plt Count 396 MPV 7.8 Neut % (Auto) 84.7 H Lymph % (Auto) 10.4 L [place]ak[place] % (Auto) 4.6 Eos % (Auto) 0.2 Baso % (Auto) 0.1 Neut # (Auto) 21.0 H Lymph # (Auto) 2.6 [place] # (Auto) 1.1 H Eos # (Auto) 0.1 Baso # (Auto) 0.0 Neutrophils % (Manual) Band Neutrophils % Lymphocytes % (Manual) Monocytes % (Manual) Myelocytes % Platelet Estimate Plt Clumps, EDTA Large Platelets Polychromasia Microcytosis (manual) Macrocytosis (manual) PT 17.1 H INR 1.6 APTT 165 H* Puncture Site pCO2 pO2 HCO3 ABG pH ABG Total CO2 ABG O2 Saturation ABG Base Excess Michele Test ABG Potassium VBG pH VBG pCO2 VBG HCO3 VBG Total CO2 VBG O2 Sat (Calc) VBG Base Excess VBG Potassium A-a O2 Difference Respiratory Index Glucose Lactate Vent Mode Mechanical Rate FiO2 Tidal Volume PEEP Crit Value Called To Crit Value Called By Crit Value Read Back Blood Gas Notified Time Sodium Potassium Chloride Carbon Dioxide Anion Gap BUN Creatinine Est GFR ( Amer) Est GFR (Non-Af Amer) POC Glucose (mg/dL) 144 H Random Glucose Hemoglobin A1c Lactic Acid Calcium Phosphorus Magnesium Total Bilirubin AST ALT Alkaline Phosphatase Troponin I NT-Pro-B Natriuret Pep Total Protein Albumin Globulin Albumin/Globulin Ratio Amylase Lipase TSH 3rd Generation Plasma Cortisol PM Arterial Blood Potassium Venous Blood Potassium Urine Color Urine Clarity Urine pH Ur Specific [place] Urine Protein Urine Glucose (UA) Urine Ketones Urine Blood Urine Nitrate Urine Bilirubin Urine Urobilinogen Ur Leukocyte Esterase Urine WBC (Auto) Urine RBC (Auto) Ur Squamous Epith Cells Urine Bacteria Hyaline Casts Urine Opiates Screen Urine Methadone Screen Ur Barbiturates Screen Ur Phencyclidine Scrn Ur Amphetamines Screen U Benzodiazepines Scrn U Oth Cocaine Metabols U Cannabinoids Screen B-Hydroxybutyrate Blood Type Blood Type Confirm Antibody Screen 03/07/18 03/07/18 03/07/18 05:04 05:04 05:30 WBC RBC Hgb Hct MCV MCH MCHC RDW Plt Count MPV Neut % (Auto) Lymph % (Auto) [place] % (Auto) Eos % (Auto) Baso % (Auto) Neut # (Auto) Lymph # (Auto) Haakon # (Auto) Eos # (Auto) Baso # (Auto) Neutrophils % (Manual) Band Neutrophils % Lymphocytes % (Manual) Monocytes % (Manual) Myelocytes % Platelet Estimate Plt Clumps, EDTA Large Platelets Polychromasia Microcytosis (manual) Macrocytosis (manual) PT 16.9 H INR 1.5 APTT 72 H D Puncture Site pCO2 pO2 HCO3 ABG pH ABG Total CO2 ABG O2 Saturation ABG Base Excess Michele Test ABG Potassium VBG pH VBG pCO2 VBG HCO3 VBG Total CO2 VBG O2 Sat (Calc) VBG Base Excess VBG Potassium A-a O2 Difference Respiratory Index Glucose Lactate Vent Mode Mechanical Rate FiO2 Tidal Volume PEEP Crit Value Called To Crit Value Called By Crit Value Read Back Blood Gas Notified Time Sodium 143 Potassium 4.0 Chloride 110 H Carbon Dioxide 20 L Anion Gap 18 BUN 22 H Creatinine 0.7 Est GFR ( Amer) > 60 Est GFR (Non-Af Amer) > 60 POC Glucose (mg/dL) 169 H Random Glucose 160 H Hemoglobin A1c Lactic Acid Calcium 7.6 L Phosphorus 4.1 Magnesium 1.5 L Total Bilirubin 3.8 H AST 218 H D ALT 93 H D Alkaline Phosphatase 89 Troponin I NT-Pro-B Natriuret Pep Total Protein 5.1 L Albumin 2.8 L D Globulin 2.3 Albumin/Globulin Ratio 1.2 Amylase Lipase TSH 3rd Generation Plasma Cortisol PM Arterial Blood Potassium Venous Blood Potassium Urine Color Urine Clarity Urine pH Ur Specific [place] Urine Protein Urine Glucose (UA) Urine Ketones Urine Blood Urine Nitrate Urine Bilirubin Urine Urobilinogen Ur Leukocyte Esterase Urine WBC (Auto) Urine RBC (Auto) Ur Squamous Epith Cells Urine Bacteria Hyaline Casts Urine Opiates Screen Urine Methadone Screen Ur Barbiturates Screen Ur Phencyclidine Scrn Ur Amphetamines Screen U Benzodiazepines Scrn U Oth Cocaine Metabols U Cannabinoids Screen B-Hydroxybutyrate Blood Type Blood Type Confirm Antibody Screen 03/07/18 05:43 WBC RBC Hgb Hct MCV MCH MCHC RDW Plt Count MPV Neut % (Auto) Lymph % (Auto) Haak[place] % (Auto) Eos % (Auto) Baso % (Auto) Neut # (Auto) Lymph # (Auto) Haakon # (Auto) Eos # (Auto) Baso # (Auto) Neutrophils % (Manual) Band Neutrophils % Lymphocytes % (Manual) Monocytes % (Manual) Myelocytes % Platelet Estimate Plt Clumps, EDTA Large Platelets Polychromasia Microcytosis (manual) Macrocytosis (manual) PT INR APTT Puncture Site A-line pCO2 28 L pO2 116 H HCO3 22.9 ABG pH 7.46 H ABG Total CO2 20.8 L ABG O2 Saturation 99.8 H ABG Base Excess -2.6 L Michele Test Na ABG Potassium 3.8 VBG pH VBG pCO2 VBG HCO3 VBG Total CO2 VBG O2 Sat (Calc) VBG Base Excess VBG Potassium A-a O2 Difference 277.0 Respiratory Index 2.4 Glucose 167 H Lactate 5.9 H* Vent Mode Prvc Mechanical Rate 15 FiO2 60.0 Tidal Volume 450 PEEP 5 Crit Value Called To [facility] multicut line operator Crit Value Called By Tracey gibson rt Crit Value Read Back Y Blood Gas Notified Time 550 Sodium 144.0 Potassium Chloride 115.0 H Carbon Dioxide Anion Gap BUN Creatinine Est GFR ( Amer) Est GFR (Non-Af Amer) POC Glucose (mg/dL) Random Glucose Hemoglobin A1c Lactic Acid Calcium Phosphorus Magnesium Total Bilirubin AST ALT Alkaline Phosphatase Troponin I NT-Pro-B Natriuret Pep Total Protein Albumin Globulin Albumin/Globulin Ratio Amylase Lipase TSH 3rd Generation Plasma Cortisol PM Arterial Blood Potassium 3.8 Venous Blood Potassium Urine Color Urine Clarity Urine pH Ur Specific [place] Urine Protein Urine Glucose (UA) Urine Ketones Urine Blood Urine Nitrate Urine Bilirubin Urine Urobilinogen Ur Leukocyte Esterase Urine WBC (Auto) Urine RBC (Auto) Ur Squamous Epith Cells Urine Bacteria Hyaline Casts Urine Opiates Screen Urine Methadone Screen Ur Barbiturates Screen Ur Phencyclidine Scrn Ur Amphetamines Screen U Benzodiazepines Scrn U Oth Cocaine Metabols U Cannabinoids Screen B-Hydroxybutyrate Blood Type Blood Type Confirm Antibody Screen EKG/Cardiology Studies: Cardiology / EKG Studies 03/06/18 11:38 ELECTROCARDIOGRAM Stat Comment: Mode Of Transportation: BED Reason For Exam: Pain Fingerstick Blood Sugar Results: 191 Critical Care Progress Note - Nutrition Nutrition: Nutrition Category Date Time Status NPO Diet [DIET] Diets 03/06/18 Breakfast Active Assessment/Plan - Assessment and Plan (Free Text) Assessment: Patient is an 82 yo female with a 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 She has been in a [facility] for approximately 2 months. She presented to ED today with nausea, vomiting, abdominal pain, and lethargy. CT A/P demonstrated ischemic bowel. Surgery was consulted. After discussion with family, will take to OR tonight. Plan: Neuro: - Lethargy - Monitor mental status CV: - R femoral TLC - Levophed drip - Monitor vitals Pulm: - ABG on admission: pH 7.12, pCO2 33, pO2 39 - ABG repeat: pH 7.23, pCO2 25, pO2 94 - Maintain spO2>92%- supplemental O2 PRN, on non-rebreather GI: - NPO - CT A/P: ischemis small bowel, extensive pneumatosis intestinalis, mesenteric venous gas, intrahepatic portal venous gas, ascites - C. diff pending - GI consulted (Patricia) - Surgery consulted (Fortino)- OR tonight : - I's & O's - Replete electrolytes PRN - Bicarb amp x4 - Sodium bicarb 75 mEq in 1/2NS @ 100 mL/hr Endo: - Maintain euglycemia - Hypoglycemia protocol Heme: - Monitor H&H - Monitor PT/INR/PTT - Hem/onc consulted (Pritesh) ID: Septic shock - Code sepsis - LA 13.5->12.7->11.4 - Leukocytosis worsening (29.5->34.8)- 32 bands - UDS negative - Aggressive IVF- NS and LR - Zosyn, Vanco PPx: VTE: pre-op GI: pre-op Code status: full code Case discussed with attending, Dr. Magdalene Dixon. PGY-1 Emy Morse D.O. <Loree Dixon M - Last Filed: 03/07/18 17:56> CCU Objective - Vital Signs / Intake & Output Vital Signs (Last 4 hours): Vital Signs Temp Pulse Resp BP BP Pulse Ox 03/07/18 16:45 99.8 F H 89 20 106/46 L 03/07/18 16:40 93 H 20 98 03/07/18 16:37 94 H 20 107/46 L 97 03/07/18 16:30 94 H 20 98 03/07/18 16:20 94 H 20 98 03/07/18 16:15 100.0 F H 93 H 20 109/47 L 03/07/18 16:10 96 H 20 97 03/07/18 16:00 100.0 F H 96 H 20 107/46 L 115/43 L 97 03/07/18 15:50 97 H 20 97 03/07/18 15:45 99.8 F H 96 H 20 113/44 L 03/07/18 15:40 98 H 20 97 03/07/18 15:37 101 H 22 114/48 L 96 03/07/18 15:30 99.9 F H 97 H 20 127/44 L 98 03/07/18 15:20 102 H 20 96 03/07/18 15:10 100 H 20 97 03/07/18 15:00 102 H 20 127/44 L 97 03/07/18 14:57 100.0 F H 106 H 20 122/50 L 03/07/18 14:50 115 H 21 93 L 03/07/18 14:40 98 H 20 96 03/07/18 14:37 95 H 20 122/50 L 96 03/07/18 14:30 97 H 20 96 03/07/18 14:20 101 H 20 96 03/07/18 14:10 104 H 20 96 03/07/18 14:05 98.8 F 119 H 26 H 156/50 H 03/07/18 14:00 103 H 21 124/41 L 94 L 03/07/18 13:57 127/41 L 03/07/18 13:50 103 H 20 94 L 03/07/18 13:40 104 H 20 94 L 03/07/18 13:37 105 H 20 116/48 L 94 L 03/07/18 13:35 99.3 F 110 H 19 140/51 L 03/07/18 13:30 105 H 22 94 L 03/07/18 13:20 108 H 22 94 L Intake and Output (Last 8hrs): Intake & Output 03/07/18 03/07/18 03/07/18 06:59 14:59 22:59 Intake Total 1985.5 3845.3 954.4 Output Total 420 540 710 Balance 1565.5 3305.3 244.4 Weight 169 lb 15.622 oz Intake: IV 388 597.6 Intake, IV Amount 1397.5 3247.7 629.4 Distal Port Femoral 800 800 200 Left Antecubital 13.5 362.0 325 Medial Femoral Y Site 7.5 5.0 Medial Port Femoral 375.0 289.1 53.2 Proximal Port Femoral 109 289.1 46.2 Right Hand 100 1500 Oral 0 0 Blood Product 0 325 Red Blood Cells Cpd As1 0 325 Lr Unit [id number] Red Blood Cells Cpd As1 0 Lr Unit [id number] Albumin 200 Output: Drainage 200 300 650 Right Nare 200 300 650 Urine 220 240 60 Urethral (Tran) 220 240 60 Other: # Bowel Movements 0 - Medications Active Medications: Active Medications Generic Name Dose Route Start Last Admin Trade Name Freq PRN Reason Stop Dose Admin Albumin Human 25 gm 03/07/18 16:00 Albumin Human 25% (12.5 Gm/50 Ml) IV 03/08/18 10:01 Q6H ARPIT Dextrose 0 ml 03/06/18 15:02 Dextrose 50% Inj IV STAT PRN Hypoglycemia Protocol Protocol Dextrose 0 gm 03/06/18 15:02 Glutose 15 PO ONCE PRN Hypoglycemia Protocol Protocol Glucagon 0 mg 03/06/18 15:02 Glucagen Diagnostic Kit IM STAT PRN Hypoglycemia Protocol Protocol Dextrose 1,000 mls @ 0 mls/hr 03/06/18 15:02 Dextrose 5% In Water 1000 Ml IV .Q0M PRN Hypoglycemia Protocol Protocol Per Protocol Norepinephrine Bitartrate 8 mg 508 mls @ 15.24 mls/hr 03/06/18 23:00 03/07/18 14:23 / Sodium Chloride IV 7 mcg/min .Q24H PRN 26.67 mls/hr TITRATE PER MD ORDER Titration Protocol 4 MCG/MIN Heparin Sodium/Sodium Chloride 25,000 units in 250 mls @ 9.253 mls/hr 03/06/18 23:55 03/07/18 04:00 Heparin 14353 Units/250ml 1/2 Normal Saline IV 6 units/kg/hr .Q24H PRN 4.627 mls/hr PROTOCOL Titration Protocol 12 UNITS/KG/HR Fentanyl Citrate 2,500 mcg/ 250 mls @ 15.42 mls/hr 03/07/18 02:15 03/07/18 12:46 Sodium Chloride IV 3 mcg/kg/hr .[id number] PRN 23.13 mls/hr Titration Protocol 2 MCG/KG/HR Meropenem 1 gm/ Sodium 100 mls @ 100 mls/hr 03/07/18 07:15 03/07/18 16:14 Chloride IVPB 100 mls/hr Q8H ARPIT Administration Protocol Sodium Bicarbonate 75 meq/ 1,075 mls @ 100 mls/hr 03/07/18 09:45 03/07/18 16:12 Sodium Chloride IV 100 mls/hr .[id number] ARPIT Administration Aztreonam 1 gm/ Sodium 100 mls @ 200 mls/hr 03/07/18 14:00 03/07/18 14:18 Chloride IVPB 200 mls/hr Q8H ARPIT Administration Protocol Vasopressin 40 units/ Sodium 42 mls @ 2.52 mls/hr 03/07/18 12:30 03/07/18 12:42 Chloride IV 0.04 units/min .[id number] ARPIT 2.52 mls/hr Administration Protocol 0.04 UNITS/MIN Sodium Bicarbonate 175 meq/ 1,000 mls @ 100 mls/hr 03/07/18 14:30 03/07/18 16:12 Dextrose IV 100 mls/hr .Q10H ARPIT Administration Insulin Aspart 0 unit 03/06/18 18:00 03/07/18 13:58 Novolog SC 1 unit Q6H ARPIT Administration Protocol Pantoprazole Sodium 40 mg 03/07/18 10:00 03/07/18 11:00 Protonix Inj IVP 40 mg Q12H ARPIT Administration - Patient Studies Lab Studies: Microbiology Studies 03/06/18 13:17 Blood Culture - Preliminary Blood NO GROWTH AFTER 24 HOURS 03/06/18 13:17 Blood Culture - Preliminary Blood NO GROWTH AFTER 24 HOURS Lab Studies 03/07/18 03/07/18 03/07/18 Range/Units 14:48 14:39 14:39 WBC (4.8-10.8) K/uL RBC (3.80-5.20) Mil/uL Hgb (11.0-16.0) g/dL Hct (34.0-47.0) % MCV (81.0-99.0) fL MCH (27.0-31.0) pg MCHC (33.0-37.0) g/dL RDW (11.5-14.5) % Plt Count (130-400) K/uL MPV (7.2-11.7) fL Neut % (Auto) (50.0-75.0) % Lymph % (Auto) (20.0-40.0) % [place]ak[place] % (Auto) (0.0-10.0) % Eos % (Auto) (0.0-4.0) % Baso % (Auto) (0.0-2.0) % Neut # (Auto) (1.8-7.0) K/uL Lymph # (Auto) (1.0-4.3) K/uL [place] # (Auto) (0.0-0.8) K/uL Eos # (Auto) (0.0-0.7) K/uL Baso # (Auto) (0.0-0.2) K/uL Neutrophils % (Manual) (50-75) % Band Neutrophils % (0-2) % Lymphocytes % (Manual) (20-40) % Monocytes % (Manual) (0-10) % Platelet Estimate (NORMAL) Large Platelets Polychromasia Microcytosis (manual) PT (9.7-12.2) SECONDS INR APTT (21-34) SECONDS Puncture Site Rba pCO2 34 L (35-45) mm/Hg pO2 61 L (80-100) mm/Hg HCO3 24.9 (21-28) mmol/L ABG pH 7.45 (7.35-7.45) ABG Total CO2 24.6 (22-28) mmol/L ABG O2 Saturation 96.9 (95-98) % ABG Base Excess 0.1 (-2.0-3.0) mmol/L Michele Test Na ABG Potassium 3.7 (3.6-5.2) mmol/L A-a O2 Difference 324.0 mm/Hg Respiratory Index 5.3 Glucose 132 H (65-105) mg/dl Lactate 4.4 H* (0.7-2.1) mmol/L Vent Mode Prvc Mechanical Rate 20 FiO2 60.0 % Tidal Volume 450 PEEP 5 Crit Value Called To [facility] nurse vitaliy Crit Value Called By Mariluz tracey Crit Value Read Back Y Blood Gas Notified Time 1452 Sodium 144.0 (132-148) mmol/L Potassium (3.6-5.2) mmol/L Chloride 113.0 H (98-107) mmol/L Carbon Dioxide (22-30) mmol/L Anion Gap (10-20) BUN (7-17) mg/dL Creatinine (0.7-1.2) mg/dL Est GFR ( Amer) Est GFR (Non-Af Amer) POC Glucose (mg/dL) (65-110) mg/dL Random Glucose (65-105) mg/dL Hemoglobin A1c (4.2-6.5) % Lactic Acid 4.6 H* (0.7-2.1) mmol/L Calcium (8.6-10.4) mg/dl Phosphorus (2.5-4.5) mg/dL Magnesium (1.6-2.3) mg/dL Total Bilirubin (0.2-1.3) mg/dL AST (14-36) U/L ALT (9-52) U/L Alkaline Phosphatase (38-126) U/L Total Creatine Kinase 343 H (30-135) U/L CK-MB (Mass) 3.87 H (0.0-3.38) ng/mL Troponin I 0.0310 (0.00-0.120) ng/mL NT-Pro-B Natriuret Pep (0-900) pg/mL Total Protein (6.3-8.3) g/dL Albumin (3.5-5.0) g/dL Globulin (2.2-3.9) gm/dL Albumin/Globulin Ratio (1.0-2.1) Amylase (30-110) U/L Lipase (23-300) U/L TSH 3rd Generation (0.46-4.68) mIU/L Plasma Cortisol PM (1.7-14.1) ug/dL Arterial Blood Potassium 3.7 (3.6-5.2) mmol/L Random Vancomycin ug/mL B-Hydroxybutyrate (0.02-0.27) mM Blood Type Blood Type Confirm Antibody Screen 03/07/18 03/07/18 03/07/18 Range/Units 11:53 11:14 11:14 WBC 14.3 H (4.8-10.8) K/uL RBC 2.86 L (3.80-5.20) Mil/uL Hgb 8.8 L (11.0-16.0) g/dL Hct 26.4 L (34.0-47.0) % MCV 92.2 (81.0-99.0) fL MCH 30.8 (27.0-31.0) pg MCHC 33.4 (33.0-37.0) g/dL RDW 17.9 H (11.5-14.5) % Plt Count 348 (130-400) K/uL MPV 7.8 (7.2-11.7) fL Neut % (Auto) (50.0-75.0) % Lymph % (Auto) (20.0-40.0) % [place]ak[place] % (Auto) (0.0-10.0) % Eos % (Auto) (0.0-4.0) % Baso % (Auto) (0.0-2.0) % Neut # (Auto) (1.8-7.0) K/uL Lymph # (Auto) (1.0-4.3) K/uL Haakon # (Auto) (0.0-0.8) K/uL Eos # (Auto) (0.0-0.7) K/uL Baso # (Auto) (0.0-0.2) K/uL Neutrophils % (Manual) (50-75) % Band Neutrophils % (0-2) % Lymphocytes % (Manual) (20-40) % Monocytes % (Manual) (0-10) % Platelet Estimate (NORMAL) Large Platelets Polychromasia Microcytosis (manual) PT (9.7-12.2) SECONDS INR APTT (21-34) SECONDS Puncture Site pCO2 (35-45) mm/Hg pO2 (80-100) mm/Hg HCO3 (21-28) mmol/L ABG pH (7.35-7.45) ABG Total CO2 (22-28) mmol/L ABG O2 Saturation (95-98) % ABG Base Excess (-2.0-3.0) mmol/L Michele Test ABG Potassium (3.6-5.2) mmol/L A-a O2 Difference mm/Hg Respiratory Index Glucose (65-105) mg/dl Lactate (0.7-2.1) mmol/L Vent Mode Mechanical Rate FiO2 % Tidal Volume PEEP Crit Value Called To Crit Value Called By Crit Value Read Back Blood Gas Notified Time Sodium (132-148) mmol/L Potassium (3.6-5.2) mmol/L Chloride (98-107) mmol/L Carbon Dioxide (22-30) mmol/L Anion Gap (10-20) BUN (7-17) mg/dL Creatinine (0.7-1.2) mg/dL Est GFR ( Amer) Est GFR (Non-Af Amer) POC Glucose (mg/dL) 165 H (65-110) mg/dL Random Glucose (65-105) mg/dL Hemoglobin A1c (4.2-6.5) % Lactic Acid (0.7-2.1) mmol/L Calcium (8.6-10.4) mg/dl Phosphorus (2.5-4.5) mg/dL Magnesium (1.6-2.3) mg/dL Total Bilirubin (0.2-1.3) mg/dL AST (14-36) U/L ALT (9-52) U/L Alkaline Phosphatase (38-126) U/L Total Creatine Kinase (30-135) U/L CK-MB (Mass) (0.0-3.38) ng/mL Troponin I (0.00-0.120) ng/mL NT-Pro-B Natriuret Pep (0-900) pg/mL Total Protein (6.3-8.3) g/dL Albumin (3.5-5.0) g/dL Globulin (2.2-3.9) gm/dL Albumin/Globulin Ratio (1.0-2.1) Amylase (30-110) U/L Lipase (23-300) U/L TSH 3rd Generation (0.46-4.68) mIU/L Plasma Cortisol PM (1.7-14.1) ug/dL Arterial Blood Potassium (3.6-5.2) mmol/L Random Vancomycin 5.3 ug/mL B-Hydroxybutyrate (0.02-0.27) mM Blood Type Blood Type Confirm Antibody Screen 03/07/18 03/07/18 03/07/18 Range/Units 11:14 11:14 05:43 WBC (4.8-10.8) K/uL RBC (3.80-5.20) Mil/uL Hgb (11.0-16.0) g/dL Hct (34.0-47.0) % MCV (81.0-99.0) fL MCH (27.0-31.0) pg MCHC (33.0-37.0) g/dL RDW (11.5-14.5) % Plt Count (130-400) K/uL MPV (7.2-11.7) fL Neut % (Auto) (50.0-75.0) % Lymph % (Auto) (20.0-40.0) % [place] % (Auto) (0.0-10.0) % Eos % (Auto) (0.0-4.0) % Baso % (Auto) (0.0-2.0) % Neut # (Auto) (1.8-7.0) K/uL Lymph # (Auto) (1.0-4.3) K/uL Haakon # (Auto) (0.0-0.8) K/uL Eos # (Auto) (0.0-0.7) K/uL Baso # (Auto) (0.0-0.2) K/uL Neutrophils % (Manual) (50-75) % Band Neutrophils % (0-2) % Lymphocytes % (Manual) (20-40) % Monocytes % (Manual) (0-10) % Platelet Estimate (NORMAL) Large Platelets Polychromasia Microcytosis (manual) PT (9.7-12.2) SECONDS INR APTT 48 H D (21-34) SECONDS Puncture Site A-line pCO2 28 L (35-45) mm/Hg pO2 116 H (80-100) mm/Hg HCO3 22.9 (21-28) mmol/L ABG pH 7.46 H (7.35-7.45) ABG Total CO2 20.8 L (22-28) mmol/L ABG O2 Saturation 99.8 H (95-98) % ABG Base Excess -2.6 L (-2.0-3.0) mmol/L Michele Test Na ABG Potassium 3.8 (3.6-5.2) mmol/L A-a O2 Difference 277.0 mm/Hg Respiratory Index 2.4 Glucose 167 H (65-105) mg/dl Lactate 5.9 H* (0.7-2.1) mmol/L Vent Mode Prvc Mechanical Rate 15 FiO2 60.0 % Tidal Volume 450 PEEP 5 Crit Value Called To [facility] multicut line operator Crit Value Called By Tracey gibson rt Crit Value Read Back Y Blood Gas Notified Time 550 Sodium 144.0 (132-148) mmol/L Potassium (3.6-5.2) mmol/L Chloride 115.0 H (98-107) mmol/L Carbon Dioxide (22-30) mmol/L Anion Gap (10-20) BUN (7-17) mg/dL Creatinine (0.7-1.2) mg/dL Est GFR ( Amer) Est GFR (Non-Af Amer) POC Glucose (mg/dL) (65-110) mg/dL Random Glucose (65-105) mg/dL Hemoglobin A1c (4.2-6.5) % Lactic Acid 5.1 H* (0.7-2.1) mmol/L Calcium (8.6-10.4) mg/dl Phosphorus (2.5-4.5) mg/dL Magnesium (1.6-2.3) mg/dL Total Bilirubin (0.2-1.3) mg/dL AST (14-36) U/L ALT (9-52) U/L Alkaline Phosphatase (38-126) U/L Total Creatine Kinase (30-135) U/L CK-MB (Mass) (0.0-3.38) ng/mL Troponin I (0.00-0.120) ng/mL NT-Pro-B Natriuret Pep (0-900) pg/mL Total Protein (6.3-8.3) g/dL Albumin (3.5-5.0) g/dL Globulin (2.2-3.9) gm/dL Albumin/Globulin Ratio (1.0-2.1) Amylase (30-110) U/L Lipase (23-300) U/L TSH 3rd Generation (0.46-4.68) mIU/L Plasma Cortisol PM (1.7-14.1) ug/dL Arterial Blood Potassium 3.8 (3.6-5.2) mmol/L Random Vancomycin ug/mL B-Hydroxybutyrate (0.02-0.27) mM Blood Type Blood Type Confirm Antibody Screen 03/07/18 03/07/18 03/07/18 Range/Units 05:30 05:04 05:04 WBC (4.8-10.8) K/uL RBC (3.80-5.20) Mil/uL Hgb (11.0-16.0) g/dL Hct (34.0-47.0) % MCV (81.0-99.0) fL MCH (27.0-31.0) pg MCHC (33.0-37.0) g/dL RDW (11.5-14.5) % Plt Count (130-400) K/uL MPV (7.2-11.7) fL Neut % (Auto) (50.0-75.0) % Lymph % (Auto) (20.0-40.0) % Haakon % (Auto) (0.0-10.0) % Eos % (Auto) (0.0-4.0) % Baso % (Auto) (0.0-2.0) % Neut # (Auto) (1.8-7.0) K/uL Lymph # (Auto) (1.0-4.3) K/uL Haakon # (Auto) (0.0-0.8) K/uL Eos # (Auto) (0.0-0.7) K/uL Baso # (Auto) (0.0-0.2) K/uL Neutrophils % (Manual) (50-75) % Band Neutrophils % (0-2) % Lymphocytes % (Manual) (20-40) % Monocytes % (Manual) (0-10) % Platelet Estimate (NORMAL) Large Platelets Polychromasia Microcytosis (manual) PT 16.9 H (9.7-12.2) SECONDS INR 1.5 APTT 72 H D (21-34) SECONDS Puncture Site pCO2 (35-45) mm/Hg pO2 (80-100) mm/Hg HCO3 (21-28) mmol/L ABG pH (7.35-7.45) ABG Total CO2 (22-28) mmol/L ABG O2 Saturation (95-98) % ABG Base Excess (-2.0-3.0) mmol/L Michele Test ABG Potassium (3.6-5.2) mmol/L A-a O2 Difference mm/Hg Respiratory Index Glucose (65-105) mg/dl Lactate (0.7-2.1) mmol/L Vent Mode Mechanical Rate FiO2 % Tidal Volume PEEP Crit Value Called To Crit Value Called By Crit Value Read Back Blood Gas Notified Time Sodium 143 (132-148) mmol/L Potassium 4.0 (3.6-5.2) mmol/L Chloride 110 H (98-107) mmol/L Carbon Dioxide 20 L (22-30) mmol/L Anion Gap 18 (10-20) BUN 22 H (7-17) mg/dL Creatinine 0.7 (0.7-1.2) mg/dL Est GFR ( Amer) > 60 Est GFR (Non-Af Amer) > 60 POC Glucose (mg/dL) 169 H (65-110) mg/dL Random Glucose 160 H (65-105) mg/dL Hemoglobin A1c (4.2-6.5) % Lactic Acid (0.7-2.1) mmol/L Calcium 7.6 L (8.6-10.4) mg/dl Phosphorus 4.1 (2.5-4.5) mg/dL Magnesium 1.5 L (1.6-2.3) mg/dL Total Bilirubin 3.8 H (0.2-1.3) mg/dL AST 218 H D (14-36) U/L ALT 93 H D (9-52) U/L Alkaline Phosphatase 89 (38-126) U/L Total Creatine Kinase (30-135) U/L CK-MB (Mass) (0.0-3.38) ng/mL Troponin I (0.00-0.120) ng/mL NT-Pro-B Natriuret Pep (0-900) pg/mL Total Protein 5.1 L (6.3-8.3) g/dL Albumin 2.8 L D (3.5-5.0) g/dL Globulin 2.3 (2.2-3.9) gm/dL Albumin/Globulin Ratio 1.2 (1.0-2.1) Amylase (30-110) U/L Lipase (23-300) U/L TSH 3rd Generation (0.46-4.68) mIU/L Plasma Cortisol PM (1.7-14.1) ug/dL Arterial Blood Potassium (3.6-5.2) mmol/L Random Vancomycin ug/mL B-Hydroxybutyrate (0.02-0.27) mM Blood Type Blood Type Confirm Antibody Screen 03/07/18 03/07/18 03/06/18 Range/Units 05:04 02:06 23:48 WBC 24.7 H (4.8-10.8) K/uL RBC 3.19 L (3.80-5.20) Mil/uL Hgb 9.7 L (11.0-16.0) g/dL Hct 29.5 L (34.0-47.0) % MCV 92.2 D (81.0-99.0) fL MCH 30.4 (27.0-31.0) pg MCHC 33.0 (33.0-37.0) g/dL RDW 17.2 H (11.5-14.5) % Plt Count 396 (130-400) K/uL MPV 7.8 (7.2-11.7) fL Neut % (Auto) 84.7 H (50.0-75.0) % Lymph % (Auto) 10.4 L (20.0-40.0) % Haakon % (Auto) 4.6 (0.0-10.0) % Eos % (Auto) 0.2 (0.0-4.0) % Baso % (Auto) 0.1 (0.0-2.0) % Neut # (Auto) 21.0 H (1.8-7.0) K/uL Lymph # (Auto) 2.6 (1.0-4.3) K/uL Haakon # (Auto) 1.1 H (0.0-0.8) K/uL Eos # (Auto) 0.1 (0.0-0.7) K/uL Baso # (Auto) 0.0 (0.0-0.2) K/uL Neutrophils % (Manual) (50-75) % Band Neutrophils % (0-2) % Lymphocytes % (Manual) (20-40) % Monocytes % (Manual) (0-10) % Platelet Estimate (NORMAL) Large Platelets Polychromasia Microcytosis (manual) PT 17.1 H (9.7-12.2) SECONDS INR 1.6 APTT 165 H* (21-34) SECONDS Puncture Site pCO2 (35-45) mm/Hg pO2 (80-100) mm/Hg HCO3 (21-28) mmol/L ABG pH (7.35-7.45) ABG Total CO2 (22-28) mmol/L ABG O2 Saturation (95-98) % ABG Base Excess (-2.0-3.0) mmol/L Michele Test ABG Potassium (3.6-5.2) mmol/L A-a O2 Difference mm/Hg Respiratory Index Glucose (65-105) mg/dl Lactate (0.7-2.1) mmol/L Vent Mode Mechanical Rate FiO2 % Tidal Volume PEEP Crit Value Called To Crit Value Called By Crit Value Read Back Blood Gas Notified Time Sodium (132-148) mmol/L Potassium (3.6-5.2) mmol/L Chloride (98-107) mmol/L Carbon Dioxide (22-30) mmol/L Anion Gap (10-20) BUN (7-17) mg/dL Creatinine (0.7-1.2) mg/dL Est GFR ( Amer) Est GFR (Non-Af Amer) POC Glucose (mg/dL) 144 H (65-110) mg/dL Random Glucose (65-105) mg/dL Hemoglobin A1c (4.2-6.5) % Lactic Acid (0.7-2.1) mmol/L Calcium (8.6-10.4) mg/dl Phosphorus (2.5-4.5) mg/dL Magnesium (1.6-2.3) mg/dL Total Bilirubin (0.2-1.3) mg/dL AST (14-36) U/L ALT (9-52) U/L Alkaline Phosphatase (38-126) U/L Total Creatine Kinase (30-135) U/L CK-MB (Mass) (0.0-3.38) ng/mL Troponin I (0.00-0.120) ng/mL NT-Pro-B Natriuret Pep (0-900) pg/mL Total Protein (6.3-8.3) g/dL Albumin (3.5-5.0) g/dL Globulin (2.2-3.9) gm/dL Albumin/Globulin Ratio (1.0-2.1) Amylase (30-110) U/L Lipase (23-300) U/L TSH 3rd Generation (0.46-4.68) mIU/L Plasma Cortisol PM (1.7-14.1) ug/dL Arterial Blood Potassium (3.6-5.2) mmol/L Random Vancomycin ug/mL B-Hydroxybutyrate (0.02-0.27) mM Blood Type Blood Type Confirm Antibody Screen 03/06/18 03/06/18 03/06/18 Range/Units 22:02 21:59 19:52 WBC (4.8-10.8) K/uL RBC (3.80-5.20) Mil/uL Hgb (11.0-16.0) g/dL Hct (34.0-47.0) % MCV (81.0-99.0) fL MCH (27.0-31.0) pg MCHC (33.0-37.0) g/dL RDW (11.5-14.5) % Plt Count (130-400) K/uL MPV (7.2-11.7) fL Neut % (Auto) (50.0-75.0) % Lymph % (Auto) (20.0-40.0) % Haakon % (Auto) (0.0-10.0) % Eos % (Auto) (0.0-4.0) % Baso % (Auto) (0.0-2.0) % Neut # (Auto) (1.8-7.0) K/uL Lymph # (Auto) (1.0-4.3) K/uL Haakon # (Auto) (0.0-0.8) K/uL Eos # (Auto) (0.0-0.7) K/uL Baso # (Auto) (0.0-0.2) K/uL Neutrophils % (Manual) (50-75) % Band Neutrophils % (0-2) % Lymphocytes % (Manual) (20-40) % Monocytes % (Manual) (0-10) % Platelet Estimate (NORMAL) Large Platelets Polychromasia Microcytosis (manual) PT (9.7-12.2) SECONDS INR APTT (21-34) SECONDS Puncture Site Tser[place] pCO2 38 (35-45) mm/Hg pO2 116 H (80-100) mm/Hg HCO3 11.6 L (21-28) mmol/L ABG pH 7.10 L* (7.35-7.45) ABG Total CO2 13.0 L (22-28) mmol/L ABG O2 Saturation 99.2 H (95-98) % ABG Base Excess -17.1 L (-2.0-3.0) mmol/L Michele Test Na ABG Potassium 3.7 (3.6-5.2) mmol/L A-a O2 Difference 264.0 mm/Hg Respiratory Index 2.3 Glucose 154 H (65-105) mg/dl Lactate 10.7 H* (0.7-2.1) mmol/L Vent Mode Prvc Mechanical Rate 12 FiO2 60.0 % Tidal Volume 450 PEEP 5 Crit Value Called To Dr. jackson Crit Value Called By Justice lee Crit Value Read Back Y Blood Gas Notified Time 2205 Sodium 144.0 (132-148) mmol/L Potassium (3.6-5.2) mmol/L Chloride 114.0 H (98-107) mmol/L Carbon Dioxide (22-30) mmol/L Anion Gap (10-20) BUN (7-17) mg/dL Creatinine (0.7-1.2) mg/dL Est GFR ( Amer) Est GFR (Non-Af Amer) POC Glucose (mg/dL) 162 H (65-110) mg/dL Random Glucose (65-105) mg/dL Hemoglobin A1c (4.2-6.5) % Lactic Acid 12.5 H* (0.7-2.1) mmol/L Calcium (8.6-10.4) mg/dl Phosphorus (2.5-4.5) mg/dL Magnesium (1.6-2.3) mg/dL Total Bilirubin (0.2-1.3) mg/dL AST (14-36) U/L ALT (9-52) U/L Alkaline Phosphatase (38-126) U/L Total Creatine Kinase (30-135) U/L CK-MB (Mass) (0.0-3.38) ng/mL Troponin I (0.00-0.120) ng/mL NT-Pro-B Natriuret Pep (0-900) pg/mL Total Protein (6.3-8.3) g/dL Albumin (3.5-5.0) g/dL Globulin (2.2-3.9) gm/dL Albumin/Globulin Ratio (1.0-2.1) Amylase (30-110) U/L Lipase (23-300) U/L TSH 3rd Generation (0.46-4.68) mIU/L Plasma Cortisol PM (1.7-14.1) ug/dL Arterial Blood Potassium 3.7 (3.6-5.2) mmol/L Random Vancomycin ug/mL B-Hydroxybutyrate (0.02-0.27) mM Blood Type Blood Type Confirm Antibody Screen 03/06/18 03/06/18 03/06/18 Range/Units 19:23 18:52 17:34 WBC (4.8-10.8) K/uL RBC (3.80-5.20) Mil/uL Hgb (11.0-16.0) g/dL Hct (34.0-47.0) % MCV (81.0-99.0) fL MCH (27.0-31.0) pg MCHC (33.0-37.0) g/dL RDW (11.5-14.5) % Plt Count (130-400) K/uL MPV (7.2-11.7) fL Neut % (Auto) (50.0-75.0) % Lymph % (Auto) (20.0-40.0) % Haakon % (Auto) (0.0-10.0) % Eos % (Auto) (0.0-4.0) % Baso % (Auto) (0.0-2.0) % Neut # (Auto) (1.8-7.0) K/uL Lymph # (Auto) (1.0-4.3) K/uL Haakon # (Auto) (0.0-0.8) K/uL Eos # (Auto) (0.0-0.7) K/uL Baso # (Auto) (0.0-0.2) K/uL Neutrophils % (Manual) (50-75) % Band Neutrophils % (0-2) % Lymphocytes % (Manual) (20-40) % Monocytes % (Manual) (0-10) % Platelet Estimate (NORMAL) Large Platelets Polychromasia Microcytosis (manual) PT (9.7-12.2) SECONDS INR APTT (21-34) SECONDS Puncture Site Lr pCO2 25 L (35-45) mm/Hg pO2 94 (80-100) mm/Hg HCO3 12.9 L (21-28) mmol/L ABG pH 7.23 L (7.35-7.45) ABG Total CO2 11.3 L (22-28) mmol/L ABG O2 Saturation 99.9 H (95-98) % ABG Base Excess -15.3 L (-2.0-3.0) mmol/L Michele Test Unable ABG Potassium 3.4 L (3.6-5.2) mmol/L A-a O2 Difference 231.0 mm/Hg Respiratory Index 2.5 Glucose 153 H (65-105) mg/dl Lactate 11.4 H* (0.7-2.1) mmol/L Vent Mode Mechanical Rate FiO2 50.0 % Tidal Volume PEEP Crit Value Called To Dr dixon Crit Value Called By Justice lee Crit Value Read Back Y Blood Gas Notified Time 1738 Sodium 146.0 (132-148) mmol/L Potassium (3.6-5.2) mmol/L Chloride 118.0 H (98-107) mmol/L Carbon Dioxide (22-30) mmol/L Anion Gap (10-20) BUN (7-17) mg/dL Creatinine (0.7-1.2) mg/dL Est GFR ( Amer) Est GFR (Non-Af Amer) POC Glucose (mg/dL) 191 H (65-110) mg/dL Random Glucose (65-105) mg/dL Hemoglobin A1c (4.2-6.5) % Lactic Acid (0.7-2.1) mmol/L Calcium (8.6-10.4) mg/dl Phosphorus (2.5-4.5) mg/dL Magnesium (1.6-2.3) mg/dL Total Bilirubin (0.2-1.3) mg/dL AST (14-36) U/L ALT (9-52) U/L Alkaline Phosphatase (38-126) U/L Total Creatine Kinase (30-135) U/L CK-MB (Mass) (0.0-3.38) ng/mL Troponin I (0.00-0.120) ng/mL NT-Pro-B Natriuret Pep (0-900) pg/mL Total Protein (6.3-8.3) g/dL Albumin (3.5-5.0) g/dL Globulin (2.2-3.9) gm/dL Albumin/Globulin Ratio (1.0-2.1) Amylase (30-110) U/L Lipase (23-300) U/L TSH 3rd Generation (0.46-4.68) mIU/L Plasma Cortisol PM (1.7-14.1) ug/dL Arterial Blood Potassium 3.4 L (3.6-5.2) mmol/L Random Vancomycin ug/mL B-Hydroxybutyrate (0.02-0.27) mM Blood Type A POSITIVE Blood Type Confirm A POSITIVE Antibody Screen Negative 03/06/18 03/06/18 03/06/18 Range/Units 17:33 17:33 17:33 WBC 34.8 H (4.8-10.8) K/uL RBC 2.53 L (3.80-5.20) Mil/uL Hgb 7.9 L D (11.0-16.0) g/dL Hct 24.9 L (34.0-47.0) % MCV 98.6 D (81.0-99.0) fL MCH 31.1 H (27.0-31.0) pg MCHC 31.5 L (33.0-37.0) g/dL RDW 17.0 H (11.5-14.5) % Plt Count 469 H D (130-400) K/uL MPV 7.9 (7.2-11.7) fL Neut % (Auto) 88.2 H (50.0-75.0) % Lymph % (Auto) 7.5 L (20.0-40.0) % Haakon % (Auto) 4.1 (0.0-10.0) % Eos % (Auto) 0.0 (0.0-4.0) % Baso % (Auto) 0.2 (0.0-2.0) % Neut # (Auto) 30.7 H (1.8-7.0) K/uL Lymph # (Auto) 2.6 (1.0-4.3) K/uL Haakon # (Auto) 1.4 H (0.0-0.8) K/uL Eos # (Auto) 0.0 (0.0-0.7) K/uL Baso # (Auto) 0.1 (0.0-0.2) K/uL Neutrophils % (Manual) 46 L (50-75) % Band Neutrophils % 32 H* (0-2) % Lymphocytes % (Manual) 11 L (20-40) % Monocytes % (Manual) 11 H (0-10) % Platelet Estimate Normal (NORMAL) Large Platelets Present Polychromasia Slight Microcytosis (manual) Slight PT (9.7-12.2) SECONDS INR APTT (21-34) SECONDS Puncture Site pCO2 (35-45) mm/Hg pO2 (80-100) mm/Hg HCO3 (21-28) mmol/L ABG pH (7.35-7.45) ABG Total CO2 (22-28) mmol/L ABG O2 Saturation (95-98) % ABG Base Excess (-2.0-3.0) mmol/L Michele Test ABG Potassium (3.6-5.2) mmol/L A-a O2 Difference mm/Hg Respiratory Index Glucose (65-105) mg/dl Lactate (0.7-2.1) mmol/L Vent Mode Mechanical Rate FiO2 % Tidal Volume PEEP Crit Value Called To Crit Value Called By Crit Value Read Back Blood Gas Notified Time Sodium (132-148) mmol/L Potassium (3.6-5.2) mmol/L Chloride (98-107) mmol/L Carbon Dioxide (22-30) mmol/L Anion Gap (10-20) BUN (7-17) mg/dL Creatinine (0.7-1.2) mg/dL Est GFR ( Amer) Est GFR (Non-Af Amer) POC Glucose (mg/dL) (65-110) mg/dL Random Glucose (65-105) mg/dL Hemoglobin A1c 6.9 H (4.2-6.5) % Lactic Acid (0.7-2.1) mmol/L Calcium (8.6-10.4) mg/dl Phosphorus (2.5-4.5) mg/dL Magnesium (1.6-2.3) mg/dL Total Bilirubin (0.2-1.3) mg/dL AST (14-36) U/L ALT (9-52) U/L Alkaline Phosphatase (38-126) U/L Total Creatine Kinase (30-135) U/L CK-MB (Mass) (0.0-3.38) ng/mL Troponin I (0.00-0.120) ng/mL NT-Pro-B Natriuret Pep (0-900) pg/mL Total Protein (6.3-8.3) g/dL Albumin (3.5-5.0) g/dL Globulin (2.2-3.9) gm/dL Albumin/Globulin Ratio (1.0-2.1) Amylase (30-110) U/L Lipase (23-300) U/L TSH 3rd Generation (0.46-4.68) mIU/L Plasma Cortisol PM 51.9 H (1.7-14.1) ug/dL Arterial Blood Potassium (3.6-5.2) mmol/L Random Vancomycin ug/mL B-Hydroxybutyrate (0.02-0.27) mM Blood Type Blood Type Confirm Antibody Screen 03/06/18 Range/Units 17:33 WBC (4.8-10.8) K/uL RBC (3.80-5.20) Mil/uL Hgb (11.0-16.0) g/dL Hct (34.0-47.0) % MCV (81.0-99.0) fL MCH (27.0-31.0) pg MCHC (33.0-37.0) g/dL RDW (11.5-14.5) % Plt Count (130-400) K/uL MPV (7.2-11.7) fL Neut % (Auto) (50.0-75.0) % Lymph % (Auto) (20.0-40.0) % Haakon % (Auto) (0.0-10.0) % Eos % (Auto) (0.0-4.0) % Baso % (Auto) (0.0-2.0) % Neut # (Auto) (1.8-7.0) K/uL Lymph # (Auto) (1.0-4.3) K/uL Haakon # (Auto) (0.0-0.8) K/uL Eos # (Auto) (0.0-0.7) K/uL Baso # (Auto) (0.0-0.2) K/uL Neutrophils % (Manual) (50-75) % Band Neutrophils % (0-2) % Lymphocytes % (Manual) (20-40) % Monocytes % (Manual) (0-10) % Platelet Estimate (NORMAL) Large Platelets Polychromasia Microcytosis (manual) PT (9.7-12.2) SECONDS INR APTT (21-34) SECONDS Puncture Site pCO2 (35-45) mm/Hg pO2 (80-100) mm/Hg HCO3 (21-28) mmol/L ABG pH (7.35-7.45) ABG Total CO2 (22-28) mmol/L ABG O2 Saturation (95-98) % ABG Base Excess (-2.0-3.0) mmol/L Michele Test ABG Potassium (3.6-5.2) mmol/L A-a O2 Difference mm/Hg Respiratory Index Glucose (65-105) mg/dl Lactate (0.7-2.1) mmol/L Vent Mode Mechanical Rate FiO2 % Tidal Volume PEEP Crit Value Called To Crit Value Called By Crit Value Read Back Blood Gas Notified Time Sodium 142 (132-148) mmol/L Potassium 4.0 (3.6-5.2) mmol/L Chloride 112 H (98-107) mmol/L Carbon Dioxide 13 L (22-30) mmol/L Anion Gap 22 H (10-20) BUN 18 H (7-17) mg/dL Creatinine 0.6 L (0.7-1.2) mg/dL Est GFR ( Amer) > 60 Est GFR (Non-Af Amer) > 60 POC Glucose (mg/dL) (65-110) mg/dL Random Glucose 153 H (65-105) mg/dL Hemoglobin A1c (4.2-6.5) % Lactic Acid (0.7-2.1) mmol/L Calcium 7.4 L (8.6-10.4) mg/dl Phosphorus 5.0 H (2.5-4.5) mg/dL Magnesium 1.5 L (1.6-2.3) mg/dL Total Bilirubin 1.3 (0.2-1.3) mg/dL AST 96 H D (14-36) U/L ALT 40 (9-52) U/L Alkaline Phosphatase 88 (38-126) U/L Total Creatine Kinase (30-135) U/L CK-MB (Mass) (0.0-3.38) ng/mL Troponin I < 0.0120 (0.00-0.120) ng/mL NT-Pro-B Natriuret Pep 4330 H (0-900) pg/mL Total Protein 4.1 L (6.3-8.3) g/dL Albumin 1.7 L D (3.5-5.0) g/dL Globulin 2.4 (2.2-3.9) gm/dL Albumin/Globulin Ratio 0.7 L (1.0-2.1) Amylase 32 (30-110) U/L Lipase 32 (23-300) U/L TSH 3rd Generation 7.32 H (0.46-4.68) mIU/L Plasma Cortisol PM (1.7-14.1) ug/dL Arterial Blood Potassium (3.6-5.2) mmol/L Random Vancomycin ug/mL B-Hydroxybutyrate 0.37 H (0.02-0.27) mM Blood Type Blood Type Confirm Antibody Screen Laboratory Results - last 24 hr 03/06/18 03/06/18 03/06/18 17:33 17:33 17:33 WBC RBC Hgb Hct MCV MCH MCHC RDW Plt Count MPV Neut % (Auto) Lymph % (Auto) Haakon % (Auto) Eos % (Auto) Baso % (Auto) Neut # (Auto) Lymph # (Auto) Haakon # (Auto) Eos # (Auto) Baso # (Auto) Neutrophils % (Manual) Band Neutrophils % Lymphocytes % (Manual) Monocytes % (Manual) Platelet Estimate Large Platelets Polychromasia Microcytosis (manual) PT INR APTT Puncture Site pCO2 pO2 HCO3 ABG pH ABG Total CO2 ABG O2 Saturation ABG Base Excess Michele Test ABG Potassium A-a O2 Difference Respiratory Index Glucose Lactate Vent Mode Mechanical Rate FiO2 Tidal Volume PEEP Crit Value Called To Crit Value Called By Crit Value Read Back Blood Gas Notified Time Sodium 142 Potassium 4.0 Chloride 112 H Carbon Dioxide 13 L Anion Gap 22 H BUN 18 H Creatinine 0.6 L Est GFR ( Amer) > 60 Est GFR (Non-Af Amer) > 60 POC Glucose (mg/dL) Random Glucose 153 H Hemoglobin A1c 6.9 H Lactic Acid Calcium 7.4 L Phosphorus 5.0 H Magnesium 1.5 L Total Bilirubin 1.3 AST 96 H D ALT 40 Alkaline Phosphatase 88 Total Creatine Kinase CK-MB (Mass) Troponin I < 0.0120 NT-Pro-B Natriuret Pep 4330 H Total Protein 4.1 L Albumin 1.7 L D Globulin 2.4 Albumin/Globulin Ratio 0.7 L Amylase 32 Lipase 32 TSH 3rd Generation 7.32 H Plasma Cortisol PM 51.9 H Arterial Blood Potassium Random Vancomycin B-Hydroxybutyrate 0.37 H Blood Type Blood Type Confirm Antibody Screen 03/06/18 03/06/18 03/06/18 17:33 17:34 18:52 WBC 34.8 H RBC 2.53 L Hgb 7.9 L D Hct 24.9 L MCV 98.6 D MCH 31.1 H MCHC 31.5 L RDW 17.0 H Plt Count 469 H D MPV 7.9 Neut % (Auto) 88.2 H Lymph % (Auto) 7.5 L Haakon % (Auto) 4.1 Eos % (Auto) 0.0 Baso % (Auto) 0.2 Neut # (Auto) 30.7 H Lymph # (Auto) 2.6 Haakon # (Auto) 1.4 H Eos # (Auto) 0.0 Baso # (Auto) 0.1 Neutrophils % (Manual) 46 L Band Neutrophils % 32 H* Lymphocytes % (Manual) 11 L Monocytes % (Manual) 11 H Platelet Estimate Normal Large Platelets Present Polychromasia Slight Microcytosis (manual) Slight PT INR APTT Puncture Site Lr pCO2 25 L pO2 94 HCO3 12.9 L ABG pH 7.23 L ABG Total CO2 11.3 L ABG O2 Saturation 99.9 H ABG Base Excess -15.3 L Michele Test Unable ABG Potassium 3.4 L A-a O2 Difference 231.0 Respiratory Index 2.5 Glucose 153 H Lactate 11.4 H* Vent Mode Mechanical Rate FiO2 50.0 Tidal Volume PEEP Crit Value Called To Dr dixon Crit Value Called By Justice lee Crit Value Read Back Y Blood Gas Notified Time 1737 Sodium 146.0 Potassium Chloride 118.0 H Carbon Dioxide Anion Gap BUN Creatinine Est GFR ( Amer) Est GFR (Non-Af Amer) POC Glucose (mg/dL) Random Glucose Hemoglobin A1c Lactic Acid Calcium Phosphorus Magnesium Total Bilirubin AST ALT Alkaline Phosphatase Total Creatine Kinase CK-MB (Mass) Troponin I NT-Pro-B Natriuret Pep Total Protein Albumin Globulin Albumin/Globulin Ratio Amylase Lipase TSH 3rd Generation Plasma Cortisol PM Arterial Blood Potassium 3.4 L Random Vancomycin B-Hydroxybutyrate Blood Type A POSITIVE Blood Type Confirm A POSITIVE Antibody Screen Negative 03/06/18 03/06/18 03/06/18 19:23 19:52 21:59 WBC RBC Hgb Hct MCV MCH MCHC RDW Plt Count MPV Neut % (Auto) Lymph % (Auto) Haakon % (Auto) Eos % (Auto) Baso % (Auto) Neut # (Auto) Lymph # (Auto) Haakon # (Auto) Eos # (Auto) Baso # (Auto) Neutrophils % (Manual) Band Neutrophils % Lymphocytes % (Manual) Monocytes % (Manual) Platelet Estimate Large Platelets Polychromasia Microcytosis (manual) PT INR APTT Puncture Site pCO2 pO2 HCO3 ABG pH ABG Total CO2 ABG O2 Saturation ABG Base Excess Michele Test ABG Potassium A-a O2 Difference Respiratory Index Glucose Lactate Vent Mode Mechanical Rate FiO2 Tidal Volume PEEP Crit Value Called To Crit Value Called By Crit Value Read Back Blood Gas Notified Time Sodium Potassium Chloride Carbon Dioxide Anion Gap BUN Creatinine Est GFR ( Amer) Est GFR (Non-Af Amer) POC Glucose (mg/dL) 191 H 162 H Random Glucose Hemoglobin A1c Lactic Acid 12.5 H* Calcium Phosphorus Magnesium Total Bilirubin AST ALT Alkaline Phosphatase Total Creatine Kinase CK-MB (Mass) Troponin I NT-Pro-B Natriuret Pep Total Protein Albumin Globulin Albumin/Globulin Ratio Amylase Lipase TSH 3rd Generation Plasma Cortisol PM Arterial Blood Potassium Random Vancomycin B-Hydroxybutyrate Blood Type Blood Type Confirm Antibody Screen 03/06/18 03/06/18 03/07/18 22:02 23:48 02:06 WBC RBC Hgb Hct MCV MCH MCHC RDW Plt Count MPV Neut % (Auto) Lymph % (Auto) Haakon % (Auto) Eos % (Auto) Baso % (Auto) Neut # (Auto) Lymph # (Auto) Haakon # (Auto) Eos # (Auto) Baso # (Auto) Neutrophils % (Manual) Band Neutrophils % Lymphocytes % (Manual) Monocytes % (Manual) Platelet Estimate Large Platelets Polychromasia Microcytosis (manual) PT 17.1 H INR 1.6 APTT 165 H* Puncture Site Odum pCO2 38 pO2 116 H HCO3 11.6 L ABG pH 7.10 L* ABG Total CO2 13.0 L ABG O2 Saturation 99.2 H ABG Base Excess -17.1 L Michele Test Na ABG Potassium 3.7 A-a O2 Difference 264.0 Respiratory Index 2.3 Glucose 154 H Lactate 10.7 H* Vent Mode Prvc Mechanical Rate 12 FiO2 60.0 Tidal Volume 450 PEEP 5 Crit Value Called To Dr. jackson Crit Value Called By Justice lee Crit Value Read Back Y Blood Gas Notified Time 2205 Sodium 144.0 Potassium Chloride 114.0 H Carbon Dioxide Anion Gap BUN Creatinine Est GFR ( Amer) Est GFR (Non-Af Amer) POC Glucose (mg/dL) 144 H Random Glucose Hemoglobin A1c Lactic Acid Calcium Phosphorus Magnesium Total Bilirubin AST ALT Alkaline Phosphatase Total Creatine Kinase CK-MB (Mass) Troponin I NT-Pro-B Natriuret Pep Total Protein Albumin Globulin Albumin/Globulin Ratio Amylase Lipase TSH 3rd Generation Plasma Cortisol PM Arterial Blood Potassium 3.7 Random Vancomycin B-Hydroxybutyrate Blood Type Blood Type Confirm Antibody Screen 03/07/18 03/07/18 03/07/18 05:04 05:04 05:04 WBC 24.7 H RBC 3.19 L Hgb 9.7 L Hct 29.5 L MCV 92.2 D MCH 30.4 MCHC 33.0 RDW 17.2 H Plt Count 396 MPV 7.8 Neut % (Auto) 84.7 H Lymph % (Auto) 10.4 L Haakon % (Auto) 4.6 Eos % (Auto) 0.2 Baso % (Auto) 0.1 Neut # (Auto) 21.0 H Lymph # (Auto) 2.6 Haakon # (Auto) 1.1 H Eos # (Auto) 0.1 Baso # (Auto) 0.0 Neutrophils % (Manual) Band Neutrophils % Lymphocytes % (Manual) Monocytes % (Manual) Platelet Estimate Large Platelets Polychromasia Microcytosis (manual) PT 16.9 H INR 1.5 APTT 72 H D Puncture Site pCO2 pO2 HCO3 ABG pH ABG Total CO2 ABG O2 Saturation ABG Base Excess Michele Test ABG Potassium A-a O2 Difference Respiratory Index Glucose Lactate Vent Mode Mechanical Rate FiO2 Tidal Volume PEEP Crit Value Called To Crit Value Called By Crit Value Read Back Blood Gas Notified Time Sodium 143 Potassium 4.0 Chloride 110 H Carbon Dioxide 20 L Anion Gap 18 BUN 22 H Creatinine 0.7 Est GFR ( Amer) > 60 Est GFR (Non-Af Amer) > 60 POC Glucose (mg/dL) Random Glucose 160 H Hemoglobin A1c Lactic Acid Calcium 7.6 L Phosphorus 4.1 Magnesium 1.5 L Total Bilirubin 3.8 H AST 218 H D ALT 93 H D Alkaline Phosphatase 89 Total Creatine Kinase CK-MB (Mass) Troponin I NT-Pro-B Natriuret Pep Total Protein 5.1 L Albumin 2.8 L D Globulin 2.3 Albumin/Globulin Ratio 1.2 Amylase Lipase TSH 3rd Generation Plasma Cortisol PM Arterial Blood Potassium Random Vancomycin B-Hydroxybutyrate Blood Type Blood Type Confirm Antibody Screen 03/07/18 03/07/18 03/07/18 05:30 05:43 11:14 WBC RBC Hgb Hct MCV MCH MCHC RDW Plt Count MPV Neut % (Auto) Lymph % (Auto) Haakon % (Auto) Eos % (Auto) Baso % (Auto) Neut # (Auto) Lymph # (Auto) Haakon # (Auto) Eos # (Auto) Baso # (Auto) Neutrophils % (Manual) Band Neutrophils % Lymphocytes % (Manual) Monocytes % (Manual) Platelet Estimate Large Platelets Polychromasia Microcytosis (manual) PT INR APTT 48 H D Puncture Site A-line pCO2 28 L pO2 116 H HCO3 22.9 ABG pH 7.46 H ABG Total CO2 20.8 L ABG O2 Saturation 99.8 H ABG Base Excess -2.6 L Michele Test Na ABG Potassium 3.8 A-a O2 Difference 277.0 Respiratory Index 2.4 Glucose 167 H Lactate 5.9 H* Vent Mode Prvc Mechanical Rate 15 FiO2 60.0 Tidal Volume 450 PEEP 5 Crit Value Called To [facility] multicut line operator Crit Value Called By Tracey gibson rt Crit Value Read Back Y Blood Gas Notified Time 550 Sodium 144.0 Potassium Chloride 115.0 H Carbon Dioxide Anion Gap BUN Creatinine Est GFR ( Amer) Est GFR (Non-Af Amer) POC Glucose (mg/dL) 169 H Random Glucose Hemoglobin A1c Lactic Acid Calcium Phosphorus Magnesium Total Bilirubin AST ALT Alkaline Phosphatase Total Creatine Kinase CK-MB (Mass) Troponin I NT-Pro-B Natriuret Pep Total Protein Albumin Globulin Albumin/Globulin Ratio Amylase Lipase TSH 3rd Generation Plasma Cortisol PM Arterial Blood Potassium 3.8 Random Vancomycin B-Hydroxybutyrate Blood Type Blood Type Confirm Antibody Screen 03/07/18 03/07/18 03/07/18 11:14 11:14 11:14 WBC 14.3 H RBC 2.86 L Hgb 8.8 L Hct 26.4 L MCV 92.2 MCH 30.8 MCHC 33.4 RDW 17.9 H Plt Count 348 MPV 7.8 Neut % (Auto) Lymph % (Auto) Haakon % (Auto) Eos % (Auto) Baso % (Auto) Neut # (Auto) Lymph # (Auto) Haakon # (Auto) Eos # (Auto) Baso # (Auto) Neutrophils % (Manual) Band Neutrophils % Lymphocytes % (Manual) Monocytes % (Manual) Platelet Estimate Large Platelets Polychromasia Microcytosis (manual) PT INR APTT Puncture Site pCO2 pO2 HCO3 ABG pH ABG Total CO2 ABG O2 Saturation ABG Base Excess Michele Test ABG Potassium A-a O2 Difference Respiratory Index Glucose Lactate Vent Mode Mechanical Rate FiO2 Tidal Volume PEEP Crit Value Called To Crit Value Called By Crit Value Read Back Blood Gas Notified Time Sodium Potassium Chloride Carbon Dioxide Anion Gap BUN Creatinine Est GFR ( Amer) Est GFR (Non-Af Amer) POC Glucose (mg/dL) Random Glucose Hemoglobin A1c Lactic Acid 5.1 H* Calcium Phosphorus Magnesium Total Bilirubin AST ALT Alkaline Phosphatase Total Creatine Kinase CK-MB (Mass) Troponin I NT-Pro-B Natriuret Pep Total Protein Albumin Globulin Albumin/Globulin Ratio Amylase Lipase TSH 3rd Generation Plasma Cortisol PM Arterial Blood Potassium Random Vancomycin 5.3 B-Hydroxybutyrate Blood Type Blood Type Confirm Antibody Screen 03/07/18 03/07/18 03/07/18 11:53 14:39 14:39 WBC RBC Hgb Hct MCV MCH MCHC RDW Plt Count MPV Neut % (Auto) Lymph % (Auto) Haakon % (Auto) Eos % (Auto) Baso % (Auto) Neut # (Auto) Lymph # (Auto) Haakon # (Auto) Eos # (Auto) Baso # (Auto) Neutrophils % (Manual) Band Neutrophils % Lymphocytes % (Manual) Monocytes % (Manual) Platelet Estimate Large Platelets Polychromasia Microcytosis (manual) PT INR APTT Puncture Site pCO2 pO2 HCO3 ABG pH ABG Total CO2 ABG O2 Saturation ABG Base Excess Michele Test ABG Potassium A-a O2 Difference Respiratory Index Glucose Lactate Vent Mode Mechanical Rate FiO2 Tidal Volume PEEP Crit Value Called To Crit Value Called By Crit Value Read Back Blood Gas Notified Time Sodium Potassium Chloride Carbon Dioxide Anion Gap BUN Creatinine Est GFR ( Amer) Est GFR (Non-Af Amer) POC Glucose (mg/dL) 165 H Random Glucose Hemoglobin A1c Lactic Acid 4.6 H* Calcium Phosphorus Magnesium Total Bilirubin AST ALT Alkaline Phosphatase Total Creatine Kinase 343 H CK-MB (Mass) 3.87 H Troponin I 0.0310 NT-Pro-B Natriuret Pep Total Protein Albumin Globulin Albumin/Globulin Ratio Amylase Lipase TSH 3rd Generation Plasma Cortisol PM Arterial Blood Potassium Random Vancomycin B-Hydroxybutyrate Blood Type Blood Type Confirm Antibody Screen 03/07/18 14:48 WBC RBC Hgb Hct MCV MCH MCHC RDW Plt Count MPV Neut % (Auto) Lymph % (Auto) Haakon % (Auto) Eos % (Auto) Baso % (Auto) Neut # (Auto) Lymph # (Auto) Haakon # (Auto) Eos # (Auto) Baso # (Auto) Neutrophils % (Manual) Band Neutrophils % Lymphocytes % (Manual) Monocytes % (Manual) Platelet Estimate Large Platelets Polychromasia Microcytosis (manual) PT INR APTT Puncture Site Rba pCO2 34 L pO2 61 L HCO3 24.9 ABG pH 7.45 ABG Total CO2 24.6 ABG O2 Saturation 96.9 ABG Base Excess 0.1 Michele Test Na ABG Potassium 3.7 A-a O2 Difference 324.0 Respiratory Index 5.3 Glucose 132 H Lactate 4.4 H* Vent Mode Prvc Mechanical Rate 20 FiO2 60.0 Tidal Volume 450 PEEP 5 Crit Value Called To Icu nurse vitaliy Crit Value Called By Mariluz tracey Crit Value Read Back Y Blood Gas Notified Time 1452 Sodium 144.0 Potassium Chloride 113.0 H Carbon Dioxide Anion Gap BUN Creatinine Est GFR ( Amer) Est GFR (Non-Af Amer) POC Glucose (mg/dL) Random Glucose Hemoglobin A1c Lactic Acid Calcium Phosphorus Magnesium Total Bilirubin AST ALT Alkaline Phosphatase Total Creatine Kinase CK-MB (Mass) Troponin I NT-Pro-B Natriuret Pep Total Protein Albumin Globulin Albumin/Globulin Ratio Amylase Lipase TSH 3rd Generation Plasma Cortisol PM Arterial Blood Potassium 3.7 Random Vancomycin B-Hydroxybutyrate Blood Type Blood Type Confirm Antibody Screen Critical Care Progress Note - Nutrition Nutrition: Nutrition Category Date Time Status NPO Diet [DIET] Diets 03/06/18 Breakfast Active Assessment/Plan - Assessment and Plan (Free Text) Plan: PAtient seen and examined at bedside with ICU team and above resident. -Patient POD #2, ex-lap -continue resusitation -continue pressors to keep MAP >65, titrate norepi + vaso (shock dose) -serial lactic decreasing -monitor urine output -continue broad spectrum abx -continue IV heparin -CT angio pending -Patient remains critical -family at bedside informed of above events cc time 35 minutes prognosis guarded - Date & Time Date: 03/07/18 Time: 17:00
[2018-03-07] MEDS: Meropenem 1 GM in Sodium Chloride 0.9% 100 ML IVPB SCH ×3 (08:00→23:12)
--- NOTE | 2018-03-07 08:28 | RAD ---
Date of service: 03/07/2018 HISTORY: intubated COMPARISON: 03/06/2018 FINDINGS: Endotracheal tube terminates 1.5 cm proximal to the carson. LUNGS: There are low lung volumes. There is mild pulmonary venous congestion. There is airspace disease in the lower lobes. PLEURA: Small effusions. No pneumothorax. CARDIOVASCULAR: Mild cardiomegaly. Atherosclerotic aortic arch calcifications are present. OSSEOUS STRUCTURES: Within normal limits for the patient's age. VISUALIZED UPPER ABDOMEN: Normal. OTHER FINDINGS: None. IMPRESSION: Mild pulmonary venous congestion and small effusions. Persistent mild cardiomegaly. Endotracheal tube terminates 1.5 cm proximal to the carson.
[2018-03-07] MEDS ORDERED: Lactated Ringer's 1,000 ML IV ONE (09:51)
[2018-03-07] MEDS ORDERED: Albumin Human 25% (12.5 gm/50 ml) IV ONE (10:00)
[2018-03-07] MEDS ORDERED: Iodixanol 320 MG/ML 100 ML BOTTLE IV ONE (10:32)
[2018-03-07 11:19] LABS: HEMOGLOBIN 8.8 g/dL (11.0-16.0); MEAN CELL VOLUME 92.2 fL (81.0-99.0); MEAN CORPUSCULAR HEMOGLOBIN 30.8 pg (27.0-31.0); MEAN CORPUSCULAR HGB CONC 33.4 g/dL (33.0-37.0); MEAN PLATELET VOLUME 7.8 fL (7.2-11.7); RBC 2.86 Mil/uL (3.80-5.20); RED CELL DISTRIBUTION WIDTH 17.9 % (11.5-14.5); WHITE BLOOD COUNT 14.3 K/uL (4.8-10.8)
--- NOTE | 2018-03-07 11:32 | CP.PCM.CON ---
History of Present Illness - History of Present Illness History of Present Illness: 82 year old female with a history of cholangiocarcinoma s/p Whipple procedure at [facility] in 11/2017, presenting with abdominal pain/distention secondary small bowel ischemia s/p exploratory laparotomy with lysis of adhesions but no bowel resection, with anemia, coagulopathy, and leukocytosis. The patient is currently intubated and I am unable to obtain a history from the patient. Per the patients daughter, she underwent surgery for her cancer in 11/2017 and had a tough recuperation process. She notes her abdominal pain and distension came on suddenly. She is unaware of her having blood problems in the past. Past medical, surgical, family, social history cannot be obtained from the patient. Allergies: Per documentation aspirin, honey Review of systems cannot be obtained. Past Patient History - Infectious Disease Hx of Infectious Diseases: C.diff - Past Medical History & Family History Past Medical History?: Yes - Past Social History Smoking Status: Former Smoker Chewing Tobacco Use: No Cigar Use: No Alcohol: None Drugs: Denies Home Situation {Lives}: Usp - CARDIAC Hx Hypertension: Yes - PULMONARY Hx Respiratory Disorders: Yes (DYSPNEA ON EXERTION) - NEUROLOGICAL Hx Dementia: Yes - HEENT Hx HEENT Problems: Yes Hx Cataracts: Yes - RENAL Hx Chronic Kidney Disease: No - ENDOCRINE/METABOLIC Hx Hypothyroidism: Yes - HEMATOLOGICAL/ONCOLOGICAL Hx Blood Disorders: Yes Hx Cancer: Yes (Intrahepatic bile duct carcinoma) - INTEGUMENTARY Hx Dermatological Problems: No - MUSCULOSKELETAL/RHEUMATOLOGICAL Hx Falls: No - GASTROINTESTINAL Hx Pancreatitis: Yes - GENITOURINARY/GYNECOLOGICAL Hx Genitourinary Disorders: No - PSYCHIATRIC Hx Substance Use: No - SURGICAL HISTORY Hx Cholecystectomy: Yes - ANESTHESIA Hx Anesthesia: Yes Hx Anesthesia Reactions: No Hx Malignant Hyperthermia: No Meds Allergies/Adverse Reactions: Allergies Allergy/AdvReac Type Severity Reaction Status Date / Time aspirin Allergy Intermediate SHORTNESS Verified 06/02/15 10:12 OF BREATH honey AdvReac SHORTNESS Verified 03/07/18 09:25 OF BREATH honey AdvReac SHORTNESS Uncoded 03/07/18 09:25 OF BREATH - Medications Medications: Current Medications Albumin Human (Albumin Human 25% (12.5 Gm/50 Ml)) 25 gm IV Q6H ARPIT Stop: 03/08/18 10:01 Dextrose (Dextrose 50% Inj) 0 ml IV STAT PRN; Protocol PRN Reason: Hypoglycemia Protocol Dextrose (Glutose 15) 0 gm PO ONCE PRN; Protocol PRN Reason: Hypoglycemia Protocol Glucagon (Glucagen Diagnostic Kit) 0 mg IM STAT PRN; Protocol PRN Reason: Hypoglycemia Protocol Dextrose (Dextrose 5% In Water 1000 Ml) 1,000 mls @ 0 mls/hr IV .Q0M PRN; Protocol PRN Reason: Hypoglycemia Protocol Norepinephrine Bitartrate 8 mg (/ Sodium Chloride) 508 mls @ 15.24 mls/hr IV .Q24H PRN; Protocol PRN Reason: TITRATE PER MD ORDER Last Titration: 03/07/18 02:00 Dose: 10 mcg/min, 38.1 mls/hr Heparin Sodium/Sodium Chloride (Heparin 52445 Units/250ml 1/2 Normal Saline) 25 ,000 units in 250 mls @ 9.253 mls/hr IV .Q24H PRN; Protocol PRN Reason: PROTOCOL Last Titration: 03/07/18 04:00 Dose: 6 units/kg/hr, 4.627 mls/hr Fentanyl Citrate 2,500 mcg/ (Sodium Chloride) 250 mls @ 15.42 mls/hr IV .[id number] PRN; Protocol Last Admin: 03/07/18 10:55 Dose: 7.5 mcg/kg/hr, 57.83 mls/hr Meropenem 1 gm/ Sodium (Chloride) 100 mls @ 100 mls/hr IVPB Q8H ARPIT; Protocol Last Admin: 03/07/18 08:00 Dose: 100 mls/hr Sodium Bicarbonate 75 meq/ (Sodium Chloride) 1,075 mls @ 100 mls/hr IV .[id number] ARPIT Insulin Aspart (Novolog) 0 unit SC Q6H ARPIT; Protocol Last Admin: 03/07/18 05:52 Dose: Not Given Pantoprazole Sodium (Protonix Inj) 40 mg IVP Q12H ARPIT Physical Exam - Head Exam Head Exam: ATRAUMATIC - Eye Exam Eye Exam: Normal appearance - ENT Exam ENT Exam: Mucous Membranes Dry - Respiratory Exam Respiratory Exam: NORMAL BREATHING PATTERN - Cardiovascular Exam Cardiovascular Exam: +S1, +S2 - GI/Abdominal Exam GI & Abdominal Exam: Normal Bowel Sounds Results - Vital Signs Recent Vital Signs: Last Vital Signs Temp 99.9 F H 03/07/18 06:51 Pulse 96 H 03/07/18 10:50 Resp 15 03/07/18 10:50 BP 99/43 L 03/07/18 10:37 Pulse Ox 100 03/07/18 10:50 - Labs Result Diagrams: 03/09/18 04:37 03/09/18 04:37 Labs: Laboratory Results - last 24 hr 03/06/18 03/06/18 03/06/18 12:18 12:45 12:45 WBC 29.5 H D RBC 3.50 L Hgb 11.1 Hct 35.5 MCV 101.6 H D MCH 31.7 H MCHC 31.2 L RDW 18.0 H Plt Count 679 H D MPV 8.1 Neut % (Auto) 88.1 H Lymph % (Auto) 8.8 L Gage % (Auto) 2.7 Eos % (Auto) 0.1 Baso % (Auto) 0.3 Neut # (Auto) 25.9 H Lymph # (Auto) 2.6 Gage # (Auto) 0.8 Eos # (Auto) 0.0 Baso # (Auto) 0.1 Neutrophils % (Manual) 61 Band Neutrophils % 29 H* Lymphocytes % (Manual) 8 L Monocytes % (Manual) 1 Myelocytes % 1 H Platelet Estimate Markedly increased H Plt Clumps, EDTA Present Large Platelets Present Polychromasia Microcytosis (manual) Macrocytosis (manual) Slight PT INR APTT Puncture Site pCO2 pO2 HCO3 ABG pH ABG Total CO2 ABG O2 Saturation ABG Base Excess Michele Test ABG Potassium VBG pH VBG pCO2 VBG HCO3 VBG Total CO2 VBG O2 Sat (Calc) VBG Base Excess VBG Potassium A-a O2 Difference Respiratory Index Glucose Lactate Vent Mode Mechanical Rate FiO2 Tidal Volume PEEP Crit Value Called To Crit Value Called By Crit Value Read Back Blood Gas Notified Time Sodium 136 Potassium 5.8 H Chloride 106 Carbon Dioxide 8 L* D Anion Gap 27 H BUN 23 H Creatinine 0.9 Est GFR ( Amer) > 60 Est GFR (Non-Af Amer) > 60 POC Glucose (mg/dL) Random Glucose 353 H Hemoglobin A1c Lactic Acid Calcium 9.6 Phosphorus Magnesium Total Bilirubin 1.3 AST 52 H D ALT 20 Alkaline Phosphatase 154 H D Troponin I < 0.0120 NT-Pro-B Natriuret Pep Total Protein 6.2 L Albumin 2.9 L Globulin 3.3 Albumin/Globulin Ratio 0.9 L Amylase Lipase 39 TSH 3rd Generation Plasma Cortisol PM Arterial Blood Potassium Venous Blood Potassium Urine Color [place] Urine Clarity Clear Urine pH 5.0 Ur Specific [place] 1.024 Urine Protein 1+ H Urine Glucose (UA) 2+ H Urine Ketones Trace Urine Blood Negative Urine Nitrate Negative Urine Bilirubin Negative Urine Urobilinogen Normal Ur Leukocyte Esterase Neg Urine WBC (Auto) 4 Urine RBC (Auto) 2 Ur Squamous Epith Cells < 1 Urine Bacteria Rare Hyaline Casts 6-10 H Urine Opiates Screen Urine Methadone Screen Ur Barbiturates Screen Ur Phencyclidine Scrn Ur Amphetamines Screen U Benzodiazepines Scrn U Oth Cocaine Metabols U Cannabinoids Screen B-Hydroxybutyrate Blood Type Blood Type Confirm Antibody Screen 03/06/18 03/06/18 03/06/18 12:45 13:11 14:13 WBC RBC Hgb Hct MCV MCH MCHC RDW Plt Count MPV Neut % (Auto) Lymph % (Auto) Gage % (Auto) Eos % (Auto) Baso % (Auto) Neut # (Auto) Lymph # (Auto) Gage # (Auto) Eos # (Auto) Baso # (Auto) Neutrophils % (Manual) Band Neutrophils % Lymphocytes % (Manual) Monocytes % (Manual) Myelocytes % Platelet Estimate Plt Clumps, EDTA Large Platelets Polychromasia Microcytosis (manual) Macrocytosis (manual) PT 13.3 H INR 1.2 APTT Puncture Site pCO2 pO2 25 L HCO3 ABG pH ABG Total CO2 ABG O2 Saturation ABG Base Excess Michele Test ABG Potassium VBG pH 6.90 L* VBG pCO2 43 VBG HCO3 3.7 VBG Total CO2 9.7 L VBG O2 Sat (Calc) 29.4 L VBG Base Excess -24.3 L VBG Potassium 5.2 A-a O2 Difference Respiratory Index Glucose 306 H Lactate 13.5 H* Vent Mode Mechanical Rate FiO2 Tidal Volume PEEP Crit Value Called To Crit Value Called By Crit Value Read Back Blood Gas Notified Time Sodium 139.0 Potassium Chloride 107.0 Carbon Dioxide Anion Gap BUN Creatinine Est GFR ( Amer) Est GFR (Non-Af Amer) POC Glucose (mg/dL) 266 H Random Glucose Hemoglobin A1c Lactic Acid Calcium Phosphorus Magnesium Total Bilirubin AST ALT Alkaline Phosphatase Troponin I NT-Pro-B Natriuret Pep Total Protein Albumin Globulin Albumin/Globulin Ratio Amylase Lipase TSH 3rd Generation Plasma Cortisol PM Arterial Blood Potassium Venous Blood Potassium 5.2 Urine Color Urine Clarity Urine pH Ur Specific [place] Urine Protein Urine Glucose (UA) Urine Ketones Urine Blood Urine Nitrate Urine Bilirubin Urine Urobilinogen Ur Leukocyte Esterase Urine WBC (Auto) Urine RBC (Auto) Ur Squamous Epith Cells Urine Bacteria Hyaline Casts Urine Opiates Screen Urine Methadone Screen Ur Barbiturates Screen Ur Phencyclidine Scrn Ur Amphetamines Screen U Benzodiazepines Scrn U Oth Cocaine Metabols U Cannabinoids Screen B-Hydroxybutyrate Blood Type Blood Type Confirm Antibody Screen 03/06/18 03/06/18 03/06/18 14:29 16:00 17:33 WBC RBC Hgb Hct MCV MCH MCHC RDW Plt Count MPV Neut % (Auto) Lymph % (Auto) Gage % (Auto) Eos % (Auto) Baso % (Auto) Neut # (Auto) Lymph # (Auto) Gage # (Auto) Eos # (Auto) Baso # (Auto) Neutrophils % (Manual) Band Neutrophils % Lymphocytes % (Manual) Monocytes % (Manual) Myelocytes % Platelet Estimate Plt Clumps, EDTA Large Platelets Polychromasia Microcytosis (manual) Macrocytosis (manual) PT INR APTT Puncture Site Lfemoral pCO2 33 L pO2 39 L* HCO3 10.0 L ABG pH 7.12 L* ABG Total CO2 11.7 L ABG O2 Saturation 70.9 L ABG Base Excess -17.6 L Michele Test Na ABG Potassium 4.5 VBG pH VBG pCO2 VBG HCO3 VBG Total CO2 VBG O2 Sat (Calc) VBG Base Excess VBG Potassium A-a O2 Difference 633.0 Respiratory Index 16.2 Glucose 202 H Lactate 12.7 H* Vent Mode Mechanical Rate FiO2 100.0 Tidal Volume PEEP Crit Value Called To Dr dixon Crit Value Called By Justice Crit Value Read Back Y Blood Gas Notified Time 1600 Sodium 142.0 142 Potassium 4.0 Chloride 111.0 H 112 H Carbon Dioxide 13 L Anion Gap 22 H BUN 18 H Creatinine 0.6 L Est GFR ( Amer) > 60 Est GFR (Non-Af Amer) > 60 POC Glucose (mg/dL) Random Glucose 153 H Hemoglobin A1c Lactic Acid Calcium 7.4 L Phosphorus 5.0 H Magnesium 1.5 L Total Bilirubin 1.3 AST 96 H D ALT 40 Alkaline Phosphatase 88 Troponin I < 0.0120 NT-Pro-B Natriuret Pep 4330 H Total Protein 4.1 L Albumin 1.7 L D Globulin 2.4 Albumin/Globulin Ratio 0.7 L Amylase 32 Lipase 32 TSH 3rd Generation 7.32 H Plasma Cortisol PM Arterial Blood Potassium 4.5 Venous Blood Potassium Urine Color Urine Clarity Urine pH Ur Specific [place] Urine Protein Urine Glucose (UA) Urine Ketones Urine Blood Urine Nitrate Urine Bilirubin Urine Urobilinogen Ur Leukocyte Esterase Urine WBC (Auto) Urine RBC (Auto) Ur Squamous Epith Cells Urine Bacteria Hyaline Casts Urine Opiates Screen Negative Urine Methadone Screen Negative Ur Barbiturates Screen Negative Ur Phencyclidine Scrn Negative Ur Amphetamines Screen Negative U Benzodiazepines Scrn Negative U Oth Cocaine Metabols Negative U Cannabinoids Screen Negative B-Hydroxybutyrate 0.37 H Blood Type Blood Type Confirm Antibody Screen 03/06/18 03/06/18 03/06/18 17:33 17:33 17:33 WBC 34.8 H RBC 2.53 L Hgb 7.9 L D Hct 24.9 L MCV 98.6 D MCH 31.1 H MCHC 31.5 L RDW 17.0 H Plt Count 469 H D MPV 7.9 Neut % (Auto) 88.2 H Lymph % (Auto) 7.5 L Gage % (Auto) 4.1 Eos % (Auto) 0.0 Baso % (Auto) 0.2 Neut # (Auto) 30.7 H Lymph # (Auto) 2.6 Gage # (Auto) 1.4 H Eos # (Auto) 0.0 Baso # (Auto) 0.1 Neutrophils % (Manual) 46 L Band Neutrophils % 32 H* Lymphocytes % (Manual) 11 L Monocytes % (Manual) 11 H Myelocytes % Platelet Estimate Normal Plt Clumps, EDTA Large Platelets Present Polychromasia Slight Microcytosis (manual) Slight Macrocytosis (manual) PT INR APTT Puncture Site pCO2 pO2 HCO3 ABG pH ABG Total CO2 ABG O2 Saturation ABG Base Excess Michele Test ABG Potassium VBG pH VBG pCO2 VBG HCO3 VBG Total CO2 VBG O2 Sat (Calc) VBG Base Excess VBG Potassium A-a O2 Difference Respiratory Index Glucose Lactate Vent Mode Mechanical Rate FiO2 Tidal Volume PEEP Crit Value Called To Crit Value Called By Crit Value Read Back Blood Gas Notified Time Sodium Potassium Chloride Carbon Dioxide Anion Gap BUN Creatinine Est GFR ( Amer) Est GFR (Non-Af Amer) POC Glucose (mg/dL) Random Glucose Hemoglobin A1c 6.9 H Lactic Acid Calcium Phosphorus Magnesium Total Bilirubin AST ALT Alkaline Phosphatase Troponin I NT-Pro-B Natriuret Pep Total Protein Albumin Globulin Albumin/Globulin Ratio Amylase Lipase TSH 3rd Generation Plasma Cortisol PM 51.9 H Arterial Blood Potassium Venous Blood Potassium Urine Color Urine Clarity Urine pH Ur Specific [place] Urine Protein Urine Glucose (UA) Urine Ketones Urine Blood Urine Nitrate Urine Bilirubin Urine Urobilinogen Ur Leukocyte Esterase Urine WBC (Auto) Urine RBC (Auto) Ur Squamous Epith Cells Urine Bacteria Hyaline Casts Urine Opiates Screen Urine Methadone Screen Ur Barbiturates Screen Ur Phencyclidine Scrn Ur Amphetamines Screen U Benzodiazepines Scrn U Oth Cocaine Metabols U Cannabinoids Screen B-Hydroxybutyrate Blood Type Blood Type Confirm Antibody Screen 03/06/18 03/06/18 03/06/18 17:34 18:52 19:23 WBC RBC Hgb Hct MCV MCH MCHC RDW Plt Count MPV Neut % (Auto) Lymph % (Auto) Gage % (Auto) Eos % (Auto) Baso % (Auto) Neut # (Auto) Lymph # (Auto) Gage # (Auto) Eos # (Auto) Baso # (Auto) Neutrophils % (Manual) Band Neutrophils % Lymphocytes % (Manual) Monocytes % (Manual) Myelocytes % Platelet Estimate Plt Clumps, EDTA Large Platelets Polychromasia Microcytosis (manual) Macrocytosis (manual) PT INR APTT Puncture Site Lr pCO2 25 L pO2 94 HCO3 12.9 L ABG pH 7.23 L ABG Total CO2 11.3 L ABG O2 Saturation 99.9 H ABG Base Excess -15.3 L Michele Test Unable ABG Potassium 3.4 L VBG pH VBG pCO2 VBG HCO3 VBG Total CO2 VBG O2 Sat (Calc) VBG Base Excess VBG Potassium A-a O2 Difference 231.0 Respiratory Index 2.5 Glucose 153 H Lactate 11.4 H* Vent Mode Mechanical Rate FiO2 50.0 Tidal Volume PEEP Crit Value Called To Dr dixon Crit Value Called By Justice lee Crit Value Read Back Y Blood Gas Notified Time 1737 Sodium 146.0 Potassium Chloride 118.0 H Carbon Dioxide Anion Gap BUN Creatinine Est GFR ( Amer) Est GFR (Non-Af Amer) POC Glucose (mg/dL) 191 H Random Glucose Hemoglobin A1c Lactic Acid Calcium Phosphorus Magnesium Total Bilirubin AST ALT Alkaline Phosphatase Troponin I NT-Pro-B Natriuret Pep Total Protein Albumin Globulin Albumin/Globulin Ratio Amylase Lipase TSH 3rd Generation Plasma Cortisol PM Arterial Blood Potassium 3.4 L Venous Blood Potassium Urine Color Urine Clarity Urine pH Ur Specific [place] Urine Protein Urine Glucose (UA) Urine Ketones Urine Blood Urine Nitrate Urine Bilirubin Urine Urobilinogen Ur Leukocyte Esterase Urine WBC (Auto) Urine RBC (Auto) Ur Squamous Epith Cells Urine Bacteria Hyaline Casts Urine Opiates Screen Urine Methadone Screen Ur Barbiturates Screen Ur Phencyclidine Scrn Ur Amphetamines Screen U Benzodiazepines Scrn U Oth Cocaine Metabols U Cannabinoids Screen B-Hydroxybutyrate Blood Type A POSITIVE Blood Type Confirm A POSITIVE Antibody Screen Negative 03/06/18 03/06/18 03/06/18 19:52 21:59 22:02 WBC RBC Hgb Hct MCV MCH MCHC RDW Plt Count MPV Neut % (Auto) Lymph % (Auto) Gage % (Auto) Eos % (Auto) Baso % (Auto) Neut # (Auto) Lymph # (Auto) Gage # (Auto) Eos # (Auto) Baso # (Auto) Neutrophils % (Manual) Band Neutrophils % Lymphocytes % (Manual) Monocytes % (Manual) Myelocytes % Platelet Estimate Plt Clumps, EDTA Large Platelets Polychromasia Microcytosis (manual) Macrocytosis (manual) PT INR APTT Puncture Site [place] pCO2 38 pO2 116 H HCO3 11.6 L ABG pH 7.10 L* ABG Total CO2 13.0 L ABG O2 Saturation 99.2 H ABG Base Excess -17.1 L Michele Test Na ABG Potassium 3.7 VBG pH VBG pCO2 VBG HCO3 VBG Total CO2 VBG O2 Sat (Calc) VBG Base Excess VBG Potassium A-a O2 Difference 264.0 Respiratory Index 2.3 Glucose 154 H Lactate 10.7 H* Vent Mode Prvc Mechanical Rate 12 FiO2 60.0 Tidal Volume 450 PEEP 5 Crit Value Called To Dr. jackson Crit Value Called By Justice lee Crit Value Read Back Y Blood Gas Notified Time 2205 Sodium 144.0 Potassium Chloride 114.0 H Carbon Dioxide Anion Gap BUN Creatinine Est GFR ( Amer) Est GFR (Non-Af Amer) POC Glucose (mg/dL) 162 H Random Glucose Hemoglobin A1c Lactic Acid 12.5 H* Calcium Phosphorus Magnesium Total Bilirubin AST ALT Alkaline Phosphatase Troponin I NT-Pro-B Natriuret Pep Total Protein Albumin Globulin Albumin/Globulin Ratio Amylase Lipase TSH 3rd Generation Plasma Cortisol PM Arterial Blood Potassium 3.7 Venous Blood Potassium Urine Color Urine Clarity Urine pH Ur Specific [place] Urine Protein Urine Glucose (UA) Urine Ketones Urine Blood Urine Nitrate Urine Bilirubin Urine Urobilinogen Ur Leukocyte Esterase Urine WBC (Auto) Urine RBC (Auto) Ur Squamous Epith Cells Urine Bacteria Hyaline Casts Urine Opiates Screen Urine Methadone Screen Ur Barbiturates Screen Ur Phencyclidine Scrn Ur Amphetamines Screen U Benzodiazepines Scrn U Oth Cocaine Metabols U Cannabinoids Screen B-Hydroxybutyrate Blood Type Blood Type Confirm Antibody Screen 03/06/18 03/07/18 03/07/18 23:48 02:06 05:04 WBC 24.7 H RBC 3.19 L Hgb 9.7 L Hct 29.5 L MCV 92.2 D MCH 30.4 MCHC 33.0 RDW 17.2 H Plt Count 396 MPV 7.8 Neut % (Auto) 84.7 H Lymph % (Auto) 10.4 L Gage % (Auto) 4.6 Eos % (Auto) 0.2 Baso % (Auto) 0.1 Neut # (Auto) 21.0 H Lymph # (Auto) 2.6 Gage # (Auto) 1.1 H Eos # (Auto) 0.1 Baso # (Auto) 0.0 Neutrophils % (Manual) Band Neutrophils % Lymphocytes % (Manual) Monocytes % (Manual) Myelocytes % Platelet Estimate Plt Clumps, EDTA Large Platelets Polychromasia Microcytosis (manual) Macrocytosis (manual) PT 17.1 H INR 1.6 APTT 165 H* Puncture Site pCO2 pO2 HCO3 ABG pH ABG Total CO2 ABG O2 Saturation ABG Base Excess Michele Test ABG Potassium VBG pH VBG pCO2 VBG HCO3 VBG Total CO2 VBG O2 Sat (Calc) VBG Base Excess VBG Potassium A-a O2 Difference Respiratory Index Glucose Lactate Vent Mode Mechanical Rate FiO2 Tidal Volume PEEP Crit Value Called To Crit Value Called By Crit Value Read Back Blood Gas Notified Time Sodium Potassium Chloride Carbon Dioxide Anion Gap BUN Creatinine Est GFR ( Amer) Est GFR (Non-Af Amer) POC Glucose (mg/dL) 144 H Random Glucose Hemoglobin A1c Lactic Acid Calcium Phosphorus Magnesium Total Bilirubin AST ALT Alkaline Phosphatase Troponin I NT-Pro-B Natriuret Pep Total Protein Albumin Globulin Albumin/Globulin Ratio Amylase Lipase TSH 3rd Generation Plasma Cortisol PM Arterial Blood Potassium Venous Blood Potassium Urine Color Urine Clarity Urine pH Ur Specific [place] Urine Protein Urine Glucose (UA) Urine Ketones Urine Blood Urine Nitrate Urine Bilirubin Urine Urobilinogen Ur Leukocyte Esterase Urine WBC (Auto) Urine RBC (Auto) Ur Squamous Epith Cells Urine Bacteria Hyaline Casts Urine Opiates Screen Urine Methadone Screen Ur Barbiturates Screen Ur Phencyclidine Scrn Ur Amphetamines Screen U Benzodiazepines Scrn U Oth Cocaine Metabols U Cannabinoids Screen B-Hydroxybutyrate Blood Type Blood Type Confirm Antibody Screen 03/07/18 03/07/18 03/07/18 05:04 05:04 05:30 WBC RBC Hgb Hct MCV MCH MCHC RDW Plt Count MPV Neut % (Auto) Lymph % (Auto) Gage % (Auto) Eos % (Auto) Baso % (Auto) Neut # (Auto) Lymph # (Auto) Gage # (Auto) Eos # (Auto) Baso # (Auto) Neutrophils % (Manual) Band Neutrophils % Lymphocytes % (Manual) Monocytes % (Manual) Myelocytes % Platelet Estimate Plt Clumps, EDTA Large Platelets Polychromasia Microcytosis (manual) Macrocytosis (manual) PT 16.9 H INR 1.5 APTT 72 H D Puncture Site pCO2 pO2 HCO3 ABG pH ABG Total CO2 ABG O2 Saturation ABG Base Excess Michele Test ABG Potassium VBG pH VBG pCO2 VBG HCO3 VBG Total CO2 VBG O2 Sat (Calc) VBG Base Excess VBG Potassium A-a O2 Difference Respiratory Index Glucose Lactate Vent Mode Mechanical Rate FiO2 Tidal Volume PEEP Crit Value Called To Crit Value Called By Crit Value Read Back Blood Gas Notified Time Sodium 143 Potassium 4.0 Chloride 110 H Carbon Dioxide 20 L Anion Gap 18 BUN 22 H Creatinine 0.7 Est GFR ( Amer) > 60 Est GFR (Non-Af Amer) > 60 POC Glucose (mg/dL) 169 H Random Glucose 160 H Hemoglobin A1c Lactic Acid Calcium 7.6 L Phosphorus 4.1 Magnesium 1.5 L Total Bilirubin 3.8 H AST 218 H D ALT 93 H D Alkaline Phosphatase 89 Troponin I NT-Pro-B Natriuret Pep Total Protein 5.1 L Albumin 2.8 L D Globulin 2.3 Albumin/Globulin Ratio 1.2 Amylase Lipase TSH 3rd Generation Plasma Cortisol PM Arterial Blood Potassium Venous Blood Potassium Urine Color Urine Clarity Urine pH Ur Specific [place] Urine Protein Urine Glucose (UA) Urine Ketones Urine Blood Urine Nitrate Urine Bilirubin Urine Urobilinogen Ur Leukocyte Esterase Urine WBC (Auto) Urine RBC (Auto) Ur Squamous Epith Cells Urine Bacteria Hyaline Casts Urine Opiates Screen Urine Methadone Screen Ur Barbiturates Screen Ur Phencyclidine Scrn Ur Amphetamines Screen U Benzodiazepines Scrn U Oth Cocaine Metabols U Cannabinoids Screen B-Hydroxybutyrate Blood Type Blood Type Confirm Antibody Screen 03/07/18 03/07/18 03/07/18 05:43 11:14 11:14 WBC 14.3 H RBC 2.86 L Hgb 8.8 L Hct 26.4 L MCV 92.2 MCH 30.8 MCHC 33.4 RDW 17.9 H Plt Count 348 MPV 7.8 Neut % (Auto) Lymph % (Auto) Gage % (Auto) Eos % (Auto) Baso % (Auto) Neut # (Auto) Lymph # (Auto) Gage # (Auto) Eos # (Auto) Baso # (Auto) Neutrophils % (Manual) Band Neutrophils % Lymphocytes % (Manual) Monocytes % (Manual) Myelocytes % Platelet Estimate Plt Clumps, EDTA Large Platelets Polychromasia Microcytosis (manual) Macrocytosis (manual) PT INR APTT 48 H D Puncture Site A-line pCO2 28 L pO2 116 H HCO3 22.9 ABG pH 7.46 H ABG Total CO2 20.8 L ABG O2 Saturation 99.8 H ABG Base Excess -2.6 L Michele Test Na ABG Potassium 3.8 VBG pH VBG pCO2 VBG HCO3 VBG Total CO2 VBG O2 Sat (Calc) VBG Base Excess VBG Potassium A-a O2 Difference 277.0 Respiratory Index 2.4 Glucose 167 H Lactate 5.9 H* Vent Mode Prvc Mechanical Rate 15 FiO2 60.0 Tidal Volume 450 PEEP 5 [facility] Crit Value Called By Tracey gibson rt Crit Value Read Back Y Blood Gas Notified Time 550 Sodium 144.0 Potassium Chloride 115.0 H Carbon Dioxide Anion Gap BUN Creatinine Est GFR ( Amer) Est GFR (Non-Af Amer) POC Glucose (mg/dL) Random Glucose Hemoglobin A1c Lactic Acid Calcium Phosphorus Magnesium Total Bilirubin AST ALT Alkaline Phosphatase Troponin I NT-Pro-B Natriuret Pep Total Protein Albumin Globulin Albumin/Globulin Ratio Amylase Lipase TSH 3rd Generation Plasma Cortisol PM Arterial Blood Potassium 3.8 Venous Blood Potassium Urine Color Urine Clarity Urine pH Ur Specific [place] Urine Protein Urine Glucose (UA) Urine Ketones Urine Blood Urine Nitrate Urine Bilirubin Urine Urobilinogen Ur Leukocyte Esterase Urine WBC (Auto) Urine RBC (Auto) Ur Squamous Epith Cells Urine Bacteria Hyaline Casts Urine Opiates Screen Urine Methadone Screen Ur Barbiturates Screen Ur Phencyclidine Scrn Ur Amphetamines Screen U Benzodiazepines Scrn U Oth Cocaine Metabols U Cannabinoids Screen B-Hydroxybutyrate Blood Type Blood Type Confirm Antibody Screen Assessment & Plan (1) Leukocytosis Assessment and Plan: on antibiotics Status: Acute (2) Anemia Assessment and Plan: likely chronic disease will check retic count, b12, folate, ferritin to further characterize Status: Acute (3) Coagulopathy Assessment and Plan: likely nutritional plt count down trending, will add fibrinogen to rule out evolving DIC Status: Acute (4) History of cholangiocarcinoma Assessment and Plan: s/p whipple procedure in 11/2017 at [facility] Thank you for this interesting consult. Status: Acute
--- NOTE | 2018-03-07 13:02 | CP.PCM.PN ---
Subjective - Date & Time of Evaluation Date of Evaluation: 03/07/18 Time of Evaluation: 07:00 - Subjective Subjective: Surgery: Dr. Freitas Pt seen and examined. s/p Ex-lap for mesenteric ischemia; POD#1. Pt continues to be intubated/sedated on pressor support, however even on 20mcg of Levo pt continues to be hypotensive. Tmax 101.4 overnight. Objective - Vital Signs/Intake and Output Vital Signs (last 24 hours): Temp Pulse Resp BP Pulse Ox 99.1 F 107 H 20 81/33 L 100 03/07/18 12:35 03/07/18 12:35 03/07/18 12:35 03/07/18 12:35 03/07/18 10:50 Intake and Output: 03/07/18 03/07/18 06:59 18:59 Intake Total 4271.5 380.0 Output Total 570 310 Balance 3701.5 70.0 - Medications Medications: Current Medications Albumin Human (Albumin Human 25% (12.5 Gm/50 Ml)) 25 gm IV Q6H [facility] Stop: 03/08/18 10:01 Dextrose (Dextrose 50% Inj) 0 ml IV STAT PRN; Protocol PRN Reason: Hypoglycemia Protocol Dextrose (Glutose 15) 0 gm PO ONCE PRN; Protocol PRN Reason: Hypoglycemia Protocol Glucagon (Glucagen Diagnostic Kit) 0 mg IM STAT PRN; Protocol PRN Reason: Hypoglycemia Protocol Dextrose (Dextrose 5% In Water 1000 Ml) 1,000 mls @ 0 mls/hr IV .Q0M PRN; Protocol PRN Reason: Hypoglycemia Protocol Norepinephrine Bitartrate 8 mg (/ Sodium Chloride) 508 mls @ 15.24 mls/hr IV .Q24H PRN; Protocol PRN Reason: TITRATE PER MD ORDER Last Titration: 03/07/18 02:00 Dose: 10 mcg/min, 38.1 mls/hr Heparin Sodium/Sodium Chloride (Heparin 08389 Units/250ml 1/2 Normal Saline) 25,000 units in 250 mls @ 9.253 mls/hr IV .Q24H PRN; Protocol PRN Reason: PROTOCOL Last Titration: 03/07/18 04:00 Dose: 6 units/kg/hr, 4.627 mls/hr Fentanyl Citrate 2,500 mcg/ (Sodium Chloride) 250 mls @ 15.42 mls/hr IV .[id number] PRN; Protocol Last Admin: 03/07/18 10:55 Dose: 7.5 mcg/kg/hr, 57.83 mls/hr Meropenem 1 gm/ Sodium (Chloride) 100 mls @ 100 mls/hr IVPB Q8H [facility]; Protocol Last Admin: 03/07/18 08:00 Dose: 100 mls/hr Sodium Bicarbonate 75 meq/ (Sodium Chloride) 1,075 mls @ 100 mls/hr IV .[id number] [facility] Aztreonam 1 gm/ Sodium (Chloride) 100 mls @ 200 mls/hr IVPB Q8H [facility]; Protocol Vasopressin 40 units/ Sodium (Chloride) 42 mls @ 2.52 mls/hr IV .[id number] [facility]; Protocol Insulin Aspart (Novolog) 0 unit SC Q6H [facility]; Protocol Last Admin: 03/07/18 05:52 Dose: Not Given Pantoprazole Sodium (Protonix Inj) 40 mg IVP Q12H [facility] Last Admin: 03/07/18 11:00 Dose: 40 mg - Labs Labs: 03/07/18 11:14 03/07/18 05:04 PT 16.9 SECONDS (9.7-12.2) H 03/07/18 05:04 INR 1.5 03/07/18 05:04 APTT 48 SECONDS (21-34) H D 03/07/18 11:14 - Constitutional Appears: Toxic - ENT Exam Additional comments: NGT in place; ETT in place - Respiratory Exam Respiratory Exam: Clear to Ausculation Bilateral - Cardiovascular Exam Cardiovascular Exam: Tachycardia - GI/Abdominal Exam GI & Abdominal Exam: Distended, Firm, Tenderness (diffuse) - Skin Skin Exam: Dry, Warm Assessment and Plan - Assessment and Plan (Free Text) Assessment: 82F with mesenteric ischemia s/p Ex-lap on pressor support in the ICU Plan: - cont to monitor - pt too unstable for CTA which was recommended for eval of abdominal vasculature; however at this point it is unlikely that pt will benefit from that study - if her condition improves, CTA can be attempted - try to wean off pressors if possible - monitor UOP and titrate to goal of > 30cc/hr - d/w Dr. Fortino Kate
[2018-03-07] MEDS ORDERED: WATER IV SCH (13:15)
[2018-03-07] MEDS ORDERED: SODIUM BICARBONATE IV SCH (13:15)
[2018-03-07] MEDS ORDERED: DEXTROSE IV SCH (13:15)
--- NOTE | 2018-03-07 13:18 | CP.PCM.CON ---
History of Present Illness - History of Present Illness History of Present Illness: dictated Past Patient History - Infectious Disease Hx of Infectious Diseases: C.diff - Past Medical History & Family History Past Medical History?: Yes - Past Social History Smoking Status: Former Smoker Chewing Tobacco Use: No Cigar Use: No Alcohol: None Drugs: Denies Home Situation {Lives}: Intermediate - CARDIAC Hx Hypertension: Yes - PULMONARY Hx Respiratory Disorders: Yes (DYSPNEA ON EXERTION) - NEUROLOGICAL Hx Dementia: Yes - HEENT Hx HEENT Problems: Yes Hx Cataracts: Yes - RENAL Hx Chronic Kidney Disease: No - ENDOCRINE/METABOLIC Hx Hypothyroidism: Yes - HEMATOLOGICAL/ONCOLOGICAL Hx Blood Disorders: Yes Hx Cancer: Yes (Intrahepatic bile duct carcinoma) - INTEGUMENTARY Hx Dermatological Problems: No - MUSCULOSKELETAL/RHEUMATOLOGICAL Hx Falls: No - GASTROINTESTINAL Hx Pancreatitis: Yes - GENITOURINARY/GYNECOLOGICAL Hx Genitourinary Disorders: No - PSYCHIATRIC Hx Substance Use: No - SURGICAL HISTORY Hx Cholecystectomy: Yes - ANESTHESIA Hx Anesthesia: Yes Hx Anesthesia Reactions: No Hx Malignant Hyperthermia: No Meds Allergies/Adverse Reactions: Allergies Allergy/AdvReac Type Severity Reaction Status Date / Time aspirin Allergy Intermediate SHORTNESS Verified 06/02/15 10:12 OF BREATH honey AdvReac SHORTNESS Verified 03/07/18 09:25 OF BREATH honey AdvReac SHORTNESS Uncoded 03/07/18 09:25 OF BREATH - Medications Medications: Current Medications Albumin Human (Albumin Human 25% (12.5 Gm/50 Ml)) 25 gm IV Q6H ARPIT Stop: 03/08/18 10:01 Dextrose (Dextrose 50% Inj) 0 ml IV STAT PRN; Protocol PRN Reason: Hypoglycemia Protocol Dextrose (Glutose 15) 0 gm PO ONCE PRN; Protocol PRN Reason: Hypoglycemia Protocol Glucagon (Glucagen Diagnostic Kit) 0 mg IM STAT PRN; Protocol PRN Reason: Hypoglycemia Protocol Dextrose (Dextrose 5% In Water 1000 Ml) 1,000 mls @ 0 mls/hr IV .Q0M PRN; Protocol PRN Reason: Hypoglycemia Protocol Norepinephrine Bitartrate 8 mg (/ Sodium Chloride) 508 mls @ 15.24 mls/hr IV .Q24H PRN; Protocol PRN Reason: TITRATE PER MD ORDER Last Titration: 03/07/18 02:00 Dose: 10 mcg/min, 38.1 mls/hr Heparin Sodium/Sodium Chloride (Heparin 66954 Units/250ml 1/2 Normal Saline) 25,000 units in 250 mls @ 9.253 mls/hr IV .Q24H PRN; Protocol PRN Reason: PROTOCOL Last Titration: 03/07/18 04:00 Dose: 6 units/kg/hr, 4.627 mls/hr Fentanyl Citrate 2,500 mcg/ (Sodium Chloride) 250 mls @ 15.42 mls/hr IV .[id number] PRN; Protocol Last Titration: 03/07/18 12:46 Dose: 3 mcg/kg/hr, 23.13 mls/hr Meropenem 1 gm/ Sodium (Chloride) 100 mls @ 100 mls/hr IVPB Q8H ARPIT; Protocol Last Admin: 03/07/18 08:00 Dose: 100 mls/hr Sodium Bicarbonate 75 meq/ (Sodium Chloride) 1,075 mls @ 100 mls/hr IV .[id number] [facility]PIT Aztreonam 1 gm/ Sodium (Chloride) 100 mls @ 200 mls/hr IVPB Q8H ARPIT; Protocol Vasopressin 40 units/ Sodium (Chloride) 42 mls @ 2.52 mls/hr IV .[id number] ARPIT; Protocol Last Admin: 03/07/18 12:42 Dose: 0.04 units/min, 2.52 mls/hr Sodium Bicarbonate 175 ml/ (Dextrose) 675 mls @ 100 mls/hr IV .[id number] ARPIT Stop: 03/07/18 18:14 Insulin Aspart (Novolog) 0 unit SC Q6H ARPIT; Protocol Last Admin: 03/07/18 05:52 Dose: Not Given Pantoprazole Sodium (Protonix Inj) 40 mg IVP Q12H ARPIT Last Admin: 03/07/18 11:00 Dose: 40 mg Results - Vital Signs Recent Vital Signs: Last Vital Signs Temp 99.5 F 03/07/18 13:05 Pulse 114 H 03/07/18 13:05 Resp 20 03/07/18 13:05 BP 111/41 L 03/07/18 13:05 Pulse Ox 94 L 03/07/18 12:42 - Labs Result Diagrams: 03/07/18 11:14 03/07/18 05:04 Labs: Laboratory Results - last 24 hr 03/06/18 03/06/18 03/06/18 12:45 12:45 13:11 WBC RBC Hgb Hct MCV MCH MCHC RDW Plt Count MPV Neut % (Auto) Lymph % (Auto) [place] % (Auto) Eos % (Auto) Baso % (Auto) Neut # (Auto) Lymph # (Auto) [place] # (Auto) Eos # (Auto) Baso # (Auto) Neutrophils % (Manual) 61 Band Neutrophils % 29 H* Lymphocytes % (Manual) 8 L Monocytes % (Manual) 1 Myelocytes % 1 H Platelet Estimate Markedly increased H Plt Clumps, EDTA Present Large Platelets Present Polychromasia Microcytosis (manual) Macrocytosis (manual) Slight PT INR APTT Puncture Site pCO2 pO2 25 L HCO3 ABG pH ABG Total CO2 ABG O2 Saturation ABG Base Excess Michele Test ABG Potassium VBG pH 6.90 L* VBG pCO2 43 VBG HCO3 3.7 VBG Total CO2 9.7 L VBG O2 Sat (Calc) 29.4 L VBG Base Excess -24.3 L VBG Potassium 5.2 A-a O2 Difference Respiratory Index Glucose 306 H Lactate 13.5 H* Vent Mode Mechanical Rate FiO2 Tidal Volume PEEP Crit Value Called To Crit Value Called By Crit Value Read Back Blood Gas Notified Time Sodium 136 139.0 Potassium 5.8 H Chloride 106 107.0 Carbon Dioxide 8 L* D Anion Gap 27 H BUN 23 H Creatinine 0.9 Est GFR ( Amer) > 60 Est GFR (Non-Af Amer) > 60 POC Glucose (mg/dL) Random Glucose 353 H Hemoglobin A1c Lactic Acid Calcium 9.6 Phosphorus Magnesium Total Bilirubin 1.3 AST 52 H D ALT 20 Alkaline Phosphatase 154 H D Troponin I < 0.0120 NT-Pro-B Natriuret Pep Total Protein 6.2 L Albumin 2.9 L Globulin 3.3 Albumin/Globulin Ratio 0.9 L Amylase Lipase 39 TSH 3rd Generation Plasma Cortisol PM Arterial Blood Potassium Venous Blood Potassium 5.2 Random Vancomycin Urine Opiates Screen Urine Methadone Screen Ur Barbiturates Screen Ur Phencyclidine Scrn Ur Amphetamines Screen U Benzodiazepines Scrn U Oth Cocaine Metabols U Cannabinoids Screen B-Hydroxybutyrate Blood Type Blood Type Confirm Antibody Screen 03/06/18 03/06/18 03/06/18 14:13 14:29 16:00 WBC RBC Hgb Hct MCV MCH MCHC RDW Plt Count MPV Neut % (Auto) Lymph % (Auto) [place] % (Auto) Eos % (Auto) Baso % (Auto) Neut # (Auto) Lymph # (Auto) [place] # (Auto) Eos # (Auto) Baso # (Auto) Neutrophils % (Manual) Band Neutrophils % Lymphocytes % (Manual) Monocytes % (Manual) Myelocytes % Platelet Estimate Plt Clumps, EDTA Large Platelets Polychromasia Microcytosis (manual) Macrocytosis (manual) PT INR APTT Puncture Site Lfemoral pCO2 33 L pO2 39 L* HCO3 10.0 L ABG pH 7.12 L* ABG Total CO2 11.7 L ABG O2 Saturation 70.9 L ABG Base Excess -17.6 L Michele Test Na ABG Potassium 4.5 VBG pH VBG pCO2 VBG HCO3 VBG Total CO2 VBG O2 Sat (Calc) VBG Base Excess VBG Potassium A-a O2 Difference 633.0 Respiratory Index 16.2 Glucose 202 H Lactate 12.7 H* Vent Mode Mechanical Rate FiO2 100.0 Tidal Volume PEEP Crit Value Called To Dr dixon Crit Value Called By Justice Crit Value Read Back Y Blood Gas Notified Time 1600 Sodium 142.0 Potassium Chloride 111.0 H Carbon Dioxide Anion Gap BUN Creatinine Est GFR ( Amer) Est GFR (Non-Af Amer) POC Glucose (mg/dL) 266 H Random Glucose Hemoglobin A1c Lactic Acid Calcium Phosphorus Magnesium Total Bilirubin AST ALT Alkaline Phosphatase Troponin I NT-Pro-B Natriuret Pep Total Protein Albumin Globulin Albumin/Globulin Ratio Amylase Lipase TSH 3rd Generation Plasma Cortisol PM Arterial Blood Potassium 4.5 Venous Blood Potassium Random Vancomycin Urine Opiates Screen Negative Urine Methadone Screen Negative Ur Barbiturates Screen Negative Ur Phencyclidine Scrn Negative Ur Amphetamines Screen Negative U Benzodiazepines Scrn Negative U Oth Cocaine Metabols Negative U Cannabinoids Screen Negative B-Hydroxybutyrate Blood Type Blood Type Confirm Antibody Screen 03/06/18 03/06/18 03/06/18 17:33 17:33 17:33 WBC RBC Hgb Hct MCV MCH MCHC RDW Plt Count MPV Neut % (Auto) Lymph % (Auto) [place] % (Auto) Eos % (Auto) Baso % (Auto) Neut # (Auto) Lymph # (Auto) [place] # (Auto) Eos # (Auto) Baso # (Auto) Neutrophils % (Manual) Band Neutrophils % Lymphocytes % (Manual) Monocytes % (Manual) Myelocytes % Platelet Estimate Plt Clumps, EDTA Large Platelets Polychromasia Microcytosis (manual) Macrocytosis (manual) PT INR APTT Puncture Site pCO2 pO2 HCO3 ABG pH ABG Total CO2 ABG O2 Saturation ABG Base Excess Michele Test ABG Potassium VBG pH VBG pCO2 VBG HCO3 VBG Total CO2 VBG O2 Sat (Calc) VBG Base Excess VBG Potassium A-a O2 Difference Respiratory Index Glucose Lactate Vent Mode Mechanical Rate FiO2 Tidal Volume PEEP Crit Value Called To Crit Value Called By Crit Value Read Back Blood Gas Notified Time Sodium 142 Potassium 4.0 Chloride 112 H Carbon Dioxide 13 L Anion Gap 22 H BUN 18 H Creatinine 0.6 L Est GFR ( Amer) > 60 Est GFR (Non-Af Amer) > 60 POC Glucose (mg/dL) Random Glucose 153 H Hemoglobin A1c 6.9 H Lactic Acid Calcium 7.4 L Phosphorus 5.0 H Magnesium 1.5 L Total Bilirubin 1.3 AST 96 H D ALT 40 Alkaline Phosphatase 88 Troponin I < 0.0120 NT-Pro-B Natriuret Pep 4330 H Total Protein 4.1 L Albumin 1.7 L D Globulin 2.4 Albumin/Globulin Ratio 0.7 L Amylase 32 Lipase 32 TSH 3rd Generation 7.32 H Plasma Cortisol PM 51.9 H Arterial Blood Potassium Venous Blood Potassium Random Vancomycin Urine Opiates Screen Urine Methadone Screen Ur Barbiturates Screen Ur Phencyclidine Scrn Ur Amphetamines Screen U Benzodiazepines Scrn U Oth Cocaine Metabols U Cannabinoids Screen B-Hydroxybutyrate 0.37 H Blood Type Blood Type Confirm Antibody Screen 03/06/18 03/06/18 03/06/18 17:33 17:34 18:52 WBC 34.8 H RBC 2.53 L Hgb 7.9 L D Hct 24.9 L MCV 98.6 D MCH 31.1 H MCHC 31.5 L RDW 17.0 H Plt Count 469 H D MPV 7.9 Neut % (Auto) 88.2 H Lymph % (Auto) 7.[address] [place] % (Auto) 4.1 Eos % (Auto) 0.0 Baso % (Auto) 0.2 Neut # (Auto) 30.7 H Lymph # (Auto) 2.6 [place] # (Auto) 1.4 H Eos # (Auto) 0.0 Baso # (Auto) 0.1 Neutrophils % (Manual) 46 L Band Neutrophils % 32 H* Lymphocytes % (Manual) 11 L Monocytes % (Manual) 11 H Myelocytes % Platelet Estimate Normal Plt Clumps, EDTA Large Platelets Present Polychromasia Slight Microcytosis (manual) Slight Macrocytosis (manual) PT INR APTT Puncture Site Lr pCO2 25 L pO2 94 HCO3 12.9 L ABG pH 7.23 L ABG Total CO2 11.3 L ABG O2 Saturation 99.9 H ABG Base Excess -15.3 L Michele Test Unable ABG Potassium 3.4 L VBG pH VBG pCO2 VBG HCO3 VBG Total CO2 VBG O2 Sat (Calc) VBG Base Excess VBG Potassium A-a O2 Difference 231.0 Respiratory Index 2.5 Glucose 153 H Lactate 11.4 H* Vent Mode Mechanical Rate FiO2 50.0 Tidal Volume PEEP Crit Value Called To Dr dixon Crit Value Called By Justice lee Crit Value Read Back Y Blood Gas Notified Time 1737 Sodium 146.0 Potassium Chloride 118.0 H Carbon Dioxide Anion Gap BUN Creatinine Est GFR ( Amer) Est GFR (Non-Af Amer) POC Glucose (mg/dL) Random Glucose Hemoglobin A1c Lactic Acid Calcium Phosphorus Magnesium Total Bilirubin AST ALT Alkaline Phosphatase Troponin I NT-Pro-B Natriuret Pep Total Protein Albumin Globulin Albumin/Globulin Ratio Amylase Lipase TSH 3rd Generation Plasma Cortisol PM Arterial Blood Potassium 3.4 L Venous Blood Potassium Random Vancomycin Urine Opiates Screen Urine Methadone Screen Ur Barbiturates Screen Ur Phencyclidine Scrn Ur Amphetamines Screen U Benzodiazepines Scrn U Oth Cocaine Metabols U Cannabinoids Screen B-Hydroxybutyrate Blood Type A POSITIVE Blood Type Confirm A POSITIVE Antibody Screen Negative 03/06/18 03/06/18 03/06/18 19:23 19:52 21:59 WBC RBC Hgb Hct MCV MCH MCHC RDW Plt Count MPV Neut % (Auto) Lymph % (Auto) [place] % (Auto) Eos % (Auto) Baso % (Auto) Neut # (Auto) Lymph # (Auto) [place] # (Auto) Eos # (Auto) Baso # (Auto) Neutrophils % (Manual) Band Neutrophils % Lymphocytes % (Manual) Monocytes % (Manual) Myelocytes % Platelet Estimate Plt Clumps, EDTA Large Platelets Polychromasia Microcytosis (manual) Macrocytosis (manual) PT INR APTT Puncture Site pCO2 pO2 HCO3 ABG pH ABG Total CO2 ABG O2 Saturation ABG Base Excess Michele Test ABG Potassium VBG pH VBG pCO2 VBG HCO3 VBG Total CO2 VBG O2 Sat (Calc) VBG Base Excess VBG Potassium A-a O2 Difference Respiratory Index Glucose Lactate Vent Mode Mechanical Rate FiO2 Tidal Volume PEEP Crit Value Called To Crit Value Called By Crit Value Read Back Blood Gas Notified Time Sodium Potassium Chloride Carbon Dioxide Anion Gap BUN Creatinine Est GFR ( Amer) Est GFR (Non-Af Amer) POC Glucose (mg/dL) 191 H 162 H Random Glucose Hemoglobin A1c Lactic Acid 12.5 H* Calcium Phosphorus Magnesium Total Bilirubin AST ALT Alkaline Phosphatase Troponin I NT-Pro-B Natriuret Pep Total Protein Albumin Globulin Albumin/Globulin Ratio Amylase Lipase TSH 3rd Generation Plasma Cortisol PM Arterial Blood Potassium Venous Blood Potassium Random Vancomycin Urine Opiates Screen Urine Methadone Screen Ur Barbiturates Screen Ur Phencyclidine Scrn Ur Amphetamines Screen U Benzodiazepines Scrn U Oth Cocaine Metabols U Cannabinoids Screen B-Hydroxybutyrate Blood Type Blood Type Confirm Antibody Screen 03/06/18 03/06/18 03/07/18 22:02 23:48 02:06 WBC RBC Hgb Hct MCV MCH MCHC RDW Plt Count MPV Neut % (Auto) Lymph % (Auto) [place] % (Auto) Eos % (Auto) Baso % (Auto) Neut # (Auto) Lymph # (Auto) [place] # (Auto) Eos # (Auto) Baso # (Auto) Neutrophils % (Manual) Band Neutrophils % Lymphocytes % (Manual) Monocytes % (Manual) Myelocytes % Platelet Estimate Plt Clumps, EDTA Large Platelets Polychromasia Microcytosis (manual) Macrocytosis (manual) PT 17.1 H INR 1.6 APTT 165 H* Puncture Site Tsering pCO2 38 pO2 116 H HCO3 11.6 L ABG pH 7.10 L* ABG Total CO2 13.0 L ABG O2 Saturation 99.2 H ABG Base Excess -17.1 L Michele Test Na ABG Potassium 3.7 VBG pH VBG pCO2 VBG HCO3 VBG Total CO2 VBG O2 Sat (Calc) VBG Base Excess VBG Potassium A-a O2 Difference 264.0 Respiratory Index 2.3 Glucose 154 H Lactate 10.7 H* Vent Mode Prvc Mechanical Rate 12 FiO2 60.0 Tidal Volume 450 PEEP 5 Crit Value Called To Dr. jackson Crit Value Called By Justice lee Crit Value Read Back Y Blood Gas Notified Time 2205 Sodium 144.0 Potassium Chloride 114.0 H Carbon Dioxide Anion Gap BUN Creatinine Est GFR ( Amer) Est GFR (Non-Af Amer) POC Glucose (mg/dL) 144 H Random Glucose Hemoglobin A1c Lactic Acid Calcium Phosphorus Magnesium Total Bilirubin AST ALT Alkaline Phosphatase Troponin I NT-Pro-B Natriuret Pep Total Protein Albumin Globulin Albumin/Globulin Ratio Amylase Lipase TSH 3rd Generation Plasma Cortisol PM Arterial Blood Potassium 3.7 Venous Blood Potassium Random Vancomycin Urine Opiates Screen Urine Methadone Screen Ur Barbiturates Screen Ur Phencyclidine Scrn Ur Amphetamines Screen U Benzodiazepines Scrn U Oth Cocaine Metabols U Cannabinoids Screen B-Hydroxybutyrate Blood Type Blood Type Confirm Antibody Screen 03/07/18 03/07/18 03/07/18 05:04 05:04 05:04 WBC 24.7 H RBC 3.19 L Hgb 9.7 L Hct 29.5 L MCV 92.2 D MCH 30.4 MCHC 33.0 RDW 17.2 H Plt Count 396 MPV 7.8 Neut % (Auto) 84.7 H Lymph % (Auto) 10.[address] [place] % (Auto) 4.6 Eos % (Auto) 0.2 Baso % (Auto) 0.1 Neut # (Auto) 21.0 H Lymph # (Auto) 2.6 [place] # (Auto) 1.1 H Eos # (Auto) 0.1 Baso # (Auto) 0.0 Neutrophils % (Manual) Band Neutrophils % Lymphocytes % (Manual) Monocytes % (Manual) Myelocytes % Platelet Estimate Plt Clumps, EDTA Large Platelets Polychromasia Microcytosis (manual) Macrocytosis (manual) PT 16.9 H INR 1.5 APTT 72 H D Puncture Site pCO2 pO2 HCO3 ABG pH ABG Total CO2 ABG O2 Saturation ABG Base Excess Michele Test ABG Potassium VBG pH VBG pCO2 VBG HCO3 VBG Total CO2 VBG O2 Sat (Calc) VBG Base Excess VBG Potassium A-a O2 Difference Respiratory Index Glucose Lactate Vent Mode Mechanical Rate FiO2 Tidal Volume PEEP Crit Value Called To Crit Value Called By Crit Value Read Back Blood Gas Notified Time Sodium 143 Potassium 4.0 Chloride 110 H Carbon Dioxide 20 L Anion Gap 18 BUN 22 H Creatinine 0.7 Est GFR ( Amer) > 60 Est GFR (Non-Af Amer) > 60 POC Glucose (mg/dL) Random Glucose 160 H Hemoglobin A1c Lactic Acid Calcium 7.6 L Phosphorus 4.1 Magnesium 1.5 L Total Bilirubin 3.8 H AST 218 H D ALT 93 H D Alkaline Phosphatase 89 Troponin I NT-Pro-B Natriuret Pep Total Protein 5.1 L Albumin 2.8 L D Globulin 2.3 Albumin/Globulin Ratio 1.2 Amylase Lipase TSH 3rd Generation Plasma Cortisol PM Arterial Blood Potassium Venous Blood Potassium Random Vancomycin Urine Opiates Screen Urine Methadone Screen Ur Barbiturates Screen Ur Phencyclidine Scrn Ur Amphetamines Screen U Benzodiazepines Scrn U Oth Cocaine Metabols U Cannabinoids Screen B-Hydroxybutyrate Blood Type Blood Type Confirm Antibody Screen 03/07/18 03/07/18 03/07/18 05:30 05:43 11:14 WBC RBC Hgb Hct MCV MCH MCHC RDW Plt Count MPV Neut % (Auto) Lymph % (Auto) [place] % (Auto) Eos % (Auto) Baso % (Auto) Neut # (Auto) Lymph # (Auto) [place] # (Auto) Eos # (Auto) Baso # (Auto) Neutrophils % (Manual) Band Neutrophils % Lymphocytes % (Manual) Monocytes % (Manual) Myelocytes % Platelet Estimate Plt Clumps, EDTA Large Platelets Polychromasia Microcytosis (manual) Macrocytosis (manual) PT INR APTT 48 H D Puncture Site A-line pCO2 28 L pO2 116 H HCO3 22.9 ABG pH 7.46 H ABG Total CO2 20.8 L ABG O2 Saturation 99.8 H ABG Base Excess -2.6 L Michele Test Na ABG Potassium 3.8 VBG pH VBG pCO2 VBG HCO3 VBG Total CO2 VBG O2 Sat (Calc) VBG Base Excess VBG Potassium A-a O2 Difference 277.0 Respiratory Index 2.4 Glucose 167 H Lactate 5.9 H* Vent Mode Prvc Mechanical Rate 15 FiO2 60.0 Tidal Volume 450 PEEP 5 Crit Value Called To [facility] curriculum assistant Crit Value Called By Tracey gibson rt Crit Value Read Back Y Blood Gas Notified Time 550 Sodium 144.0 Potassium Chloride 115.0 H Carbon Dioxide Anion Gap BUN Creatinine Est GFR ( Amer) Est GFR (Non-Af Amer) POC Glucose (mg/dL) 169 H Random Glucose Hemoglobin A1c Lactic Acid Calcium Phosphorus Magnesium Total Bilirubin AST ALT Alkaline Phosphatase Troponin I NT-Pro-B Natriuret Pep Total Protein Albumin Globulin Albumin/Globulin Ratio Amylase Lipase TSH 3rd Generation Plasma Cortisol PM Arterial Blood Potassium 3.8 Venous Blood Potassium Random Vancomycin Urine Opiates Screen Urine Methadone Screen Ur Barbiturates Screen Ur Phencyclidine Scrn Ur Amphetamines Screen U Benzodiazepines Scrn U Oth Cocaine Metabols U Cannabinoids Screen B-Hydroxybutyrate Blood Type Blood Type Confirm Antibody Screen 03/07/18 03/07/18 03/07/18 11:14 11:14 11:14 WBC 14.3 H RBC 2.86 L Hgb 8.8 L Hct 26.4 L MCV 92.2 MCH 30.8 MCHC 33.4 RDW 17.9 H Plt Count 348 MPV 7.8 Neut % (Auto) Lymph % (Auto) [place] % (Auto) Eos % (Auto) Baso % (Auto) Neut # (Auto) Lymph # (Auto) [place] # (Auto) Eos # (Auto) Baso # (Auto) Neutrophils % (Manual) Band Neutrophils % Lymphocytes % (Manual) Monocytes % (Manual) Myelocytes % Platelet Estimate Plt Clumps, EDTA Large Platelets Polychromasia Microcytosis (manual) Macrocytosis (manual) PT INR APTT Puncture Site pCO2 pO2 HCO3 ABG pH ABG Total CO2 ABG O2 Saturation ABG Base Excess Michele Test ABG Potassium VBG pH VBG pCO2 VBG HCO3 VBG Total CO2 VBG O2 Sat (Calc) VBG Base Excess VBG Potassium A-a O2 Difference Respiratory Index Glucose Lactate Vent Mode Mechanical Rate FiO2 Tidal Volume PEEP Crit Value Called To Crit Value Called By Crit Value Read Back Blood Gas Notified Time Sodium Potassium Chloride Carbon Dioxide Anion Gap BUN Creatinine Est GFR ( Amer) Est GFR (Non-Af Amer) POC Glucose (mg/dL) Random Glucose Hemoglobin A1c Lactic Acid 5.1 H* Calcium Phosphorus Magnesium Total Bilirubin AST ALT Alkaline Phosphatase Troponin I NT-Pro-B Natriuret Pep Total Protein Albumin Globulin Albumin/Globulin Ratio Amylase Lipase TSH 3rd Generation Plasma Cortisol PM Arterial Blood Potassium Venous Blood Potassium Random Vancomycin 5.3 Urine Opiates Screen Urine Methadone Screen Ur Barbiturates Screen Ur Phencyclidine Scrn Ur Amphetamines Screen U Benzodiazepines Scrn U Oth Cocaine Metabols U Cannabinoids Screen B-Hydroxybutyrate Blood Type Blood Type Confirm Antibody Screen 03/07/18 11:53 WBC RBC Hgb Hct MCV MCH MCHC RDW Plt Count MPV Neut % (Auto) Lymph % (Auto) [place] % (Auto) Eos % (Auto) Baso % (Auto) Neut # (Auto) Lymph # (Auto) [place] # (Auto) Eos # (Auto) Baso # (Auto) Neutrophils % (Manual) Band Neutrophils % Lymphocytes % (Manual) Monocytes % (Manual) Myelocytes % Platelet Estimate Plt Clumps, EDTA Large Platelets Polychromasia Microcytosis (manual) Macrocytosis (manual) PT INR APTT Puncture Site pCO2 pO2 HCO3 ABG pH ABG Total CO2 ABG O2 Saturation ABG Base Excess Michele Test ABG Potassium VBG pH VBG pCO2 VBG HCO3 VBG Total CO2 VBG O2 Sat (Calc) VBG Base Excess VBG Potassium A-a O2 Difference Respiratory Index Glucose Lactate Vent Mode Mechanical Rate FiO2 Tidal Volume PEEP Crit Value Called To Crit Value Called By Crit Value Read Back Blood Gas Notified Time Sodium Potassium Chloride Carbon Dioxide Anion Gap BUN Creatinine Est GFR ( Amer) Est GFR (Non-Af Amer) POC Glucose (mg/dL) 165 H Random Glucose Hemoglobin A1c Lactic Acid Calcium Phosphorus Magnesium Total Bilirubin AST ALT Alkaline Phosphatase Troponin I NT-Pro-B Natriuret Pep Total Protein Albumin Globulin Albumin/Globulin Ratio Amylase Lipase TSH 3rd Generation Plasma Cortisol PM Arterial Blood Potassium Venous Blood Potassium Random Vancomycin Urine Opiates Screen Urine Methadone Screen Ur Barbiturates Screen Ur Phencyclidine Scrn Ur Amphetamines Screen U Benzodiazepines Scrn U Oth Cocaine Metabols U Cannabinoids Screen B-Hydroxybutyrate Blood Type Blood Type Confirm Antibody Screen
[2018-03-07] MEDS: Aztreonam 1 GM in Sodium Chloride 0.9% 100 ML IVPB SCH ×2 (14:18→21:06)
[2018-03-07 14:52] LABS: ARTERIAL BLOOD GAS HCO3 24.9 mmol/L (21-28); ARTERIAL BLOOD GAS O2 SAT 96.9 % (95-98); ARTERIAL BLOOD GAS PCO2 34 mm/Hg (35-45); ARTERIAL BLOOD GAS PH 7.45 (7.35-7.45); ARTERIAL BLOOD GAS PO2 61 mm/Hg (80-100); ARTERIAL BLOOD GAS TCO2 24.6 mmol/L (22-28)
[2018-03-07 15:05] LABS: CK-MB 3.87 ng/mL (0.0-3.38)
[2018-03-07 15:23] LABS: TROPONIN I 0.031 ng/mL (0.00-0.120)
--- NOTE | 2018-03-07 16:51 | PCM.PROC ---
Procedures Attestation:: I certify that I have explained the specified Operation(s) or Procedure(s), risks, benefits and reasonable alternatives to the Patient and/or other person responsible. The opportunity was given to ask questions and all questions answered - Central Line Placement Right Femoral Triple Lumen Catheter Aseptic technique was employed throughout the procedure: Full sterile barriers (mask, hair cover, sterile gown, sterile gloves), Full body sterile drape, Chloraprep Antiseptic: 2 minute prep for Femoral CVP Time Out Performed: Yes Pt. Placed on Pulse Ox Monitor: Yes Central Line Prep: Chlorhexidine-Alcohol Combination Local Anesthesia Used: Lidocaine 1% Amount of Anesthesia Used (mls): 5 Ultrasound Used for Placement: No Central Line Lumen Inserted: triple Central Line Length: 20 cm Post Procedure: Sutured in Place, Good Blood Return, All Ports Aspirated, Flushed, Capped, Sterile Dressing Applied Secured by: Suture Post procedure dressing: Gauze, Clear vapor permeable, Chlorhexidine disc (Biopatch) Post Procedure X-Ray: No Patient Tolerated Procedure: Well Immediate Complications: None Additional Comments: US probe cover not available. Patient acutely hypotensive -will switch to subclavian or IJ when stable.
--- NOTE | 2018-03-07 16:57 | CT ---
Date of service: 03/07/2018 PROCEDURE: CT Angiography Abdomen, Pelvis and Lower Extremity with Contrast HISTORY: ischemic bowel COMPARISON: 03/06/2018 and 11/27/2017 TECHNIQUE: Technique: CT angiography of the abdomen, pelvis and bilateral lower extremities performed in the arterial phase of enhancement. Coronal and sagittal reformats, and well as rotating MIP images of the vessels generated at the workstation. Intravenous contrast dose: 100 mL Visipaque 320 Radiation dose: Total exam DLP = 1221.12 mGy-cm. This CT exam was performed using one or more of the following dose reduction techniques: Automated exposure control, adjustment of the mA and/or kV according to patient size, and/or use of iterative reconstruction technique. FINDINGS: CT ANGIOGRAPHY: There is atherosclerotic calcification of the abdominal aorta. ABDOMINAL AORTA:: There is no aneurysmal dilatation of the abdominal aorta. MAJOR AORTIC BRANCHES: Celiac [place]: Atherosclerotic calcification at the origin of the celiac axis but no evidence of significant stenosis. Superior mesenteric artery: Atherosclerotic calcification noted at the origin of the superior mesenteric artery. However, there is apparent occlusion/thrombosis of a right sided branch of the superior mesenteric artery. This is best demonstrated on series 3, image 94 through 98. No other occluded branches of the superior mesenteric artery are evident. Inferior mesenteric artery: Unremarkable. Renal arteries: Atherosclerotic calcification at the origin of the left renal artery without evidence of significant stenosis. Unremarkable right renal artery. PELVIC ARTERIES: Right Common Iliac: Unremarkable. Right External Iliac: Unremarkable. Right Internal Iliac: Unremarkable. Left Common Iliac: Unremarkable. Left External Iliac: Unremarkable. Left Internal Iliac: Unremarkable. NON-ANGIOGRAPHIC ASPECT OF THE EXAM: LOWER THORAX: Extensive bilateral lower lobe atelectasis. Subsegmental atelectasis of posterior segment right upper lobe. Small bilateral pleural effusion. LIVER: Heterogeneous attenuation. There is a wedge-shaped area of diminished/absent enhancement in the posterior superior right hepatic lobe, segment 7. This is suspicious for an infarct. Differential diagnosis should include abscess. There is no evidence of portal venous thrombosis or splenic venous thrombosis. There is mild periportal edema. There is mild mural enhancement of the common hepatic duct in the rafa hepatis region. The significance is uncertain. Consider cholangitis. No biliary ductal dilatation is evident. The extensive portal venous gas in the left hepatic lobe seen on the prior examination has mostly cleared on the current examination with trace peripheral portal venous gas in the left hepatic lobe. GALLBLADDER AND BILE DUCTS: Status post cholecystectomy PANCREAS: Status post Whipple procedure. Absent pancreatic head. No pancreatic mass or ductal dilatation. There is a linear metallic structure arising from the pancreatic body extending beyond the expected region of the pancreatic head, related to prior Whipple surgery. SPLEEN: Probable multifocal splenic infarcts. ADRENALS: Left adrenal mass common nonspecific. This measures 2.1 cm in diameter. Nonspecific unremarkable right adrenal. KIDNEYS AND URETERS: Multifocal wedge-shaped areas of diminished flaps absent cortical enhancement in both kidneys suspicious for renal infarcts. The differential diagnosis includes bilateral pyelonephritis. Cortical cyst lower pole right kidney, approximately 2.1 cm. No renal calculus. No hydronephrosis. STOMACH AND BOWEL: Nasogastric tube noted. Partial gastrectomy related to Whipple surgery. There is extensive pneumatosis intestinalis of multiple small bowel loops. Evaluation of the bowel is limited by the arterial phase of imaging and the absence of oral contrast. No evidence of colonic pneumatosis. Once again, there is evidence of venous gas in mesenteric venous branches, diminished in extent from prior examination.. APPENDIX: Not identified PERITONEUM: Small amount of pneumoperitoneum. Consistent with interval laparotomy since the prior CT examination of 03/06/2018. Anterior midline surgical leyda are noted. Ascites. Surgical drainage catheter entering the left lower anterior abdominal wall extending to the lower left pelvis. LYMPH NODES: Unremarkable. No enlarged lymph nodes. BLADDER: Bladder is decompressed around a Tran catheter. Small amount of gas and urine within the bladder. REPRODUCTIVE: Unremarkable uterus BONES: No acute fracture. OTHER FINDINGS: None. 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 Portal venous gas and mesenteric venous gas noted. 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 Free intraperitoneal air is noted, likely due to interval surgery. Anterior midline surgical leyda noted... Ascites. Status post Whipple procedure. Question raised of possible cholangitis, given enhancement of the common hepatic duct wall. Extensive bilateral lower lobe atelectasis and small bilateral pleural effusion. Nasogastric tube. Tran catheter. Findings discussed by telephone with Dr. Morse at 4:50 p.m. on 03/07/2018.
[2018-03-07] MEDS: Albumin Human 25% (12.5 gm/50 ml) IV SCH ×2 (17:52→22:06)
--- NOTE | 2018-03-07 19:02 | CP.PCM.PN ---
Subjective - Date & Time of Evaluation Date of Evaluation: 03/07/18 Time of Evaluation: 12:45 - Subjective Subjective: clinically same Objective - Vital Signs/Intake and Output Vital Signs (last 24 hours): Temp Pulse Resp BP Pulse Ox 99.8 F H 94 H 19 120/53 L 97 03/07/18 16:45 03/07/18 18:37 03/07/18 18:37 03/07/18 18:37 03/07/18 18:37 Intake and Output: 03/07/18 03/08/18 18:59 06:59 Intake Total 5854.3 Output Total 1500 Balance 4354.3 - Medications Medications: Current Medications Albumin Human (Albumin Human 25% (12.5 Gm/50 Ml)) 25 gm IV Q6H ARPIT Stop: 03/08/18 10:01 Last Admin: 03/07/18 17:52 Dose: 25 gm Dextrose (Dextrose 50% Inj) 0 ml IV STAT PRN; Protocol PRN Reason: Hypoglycemia Protocol Dextrose (Glutose 15) 0 gm PO ONCE PRN; Protocol PRN Reason: Hypoglycemia Protocol Glucagon (Glucagen Diagnostic Kit) 0 mg IM STAT PRN; Protocol PRN Reason: Hypoglycemia Protocol Dextrose (Dextrose 5% In Water 1000 Ml) 1,000 mls @ 0 mls/hr IV .Q0M PRN; Protocol PRN Reason: Hypoglycemia Protocol Norepinephrine Bitartrate 8 mg (/ Sodium Chloride) 508 mls @ 15.24 mls/hr IV .Q24H PRN; Protocol PRN Reason: TITRATE PER MD ORDER Last Titration: 03/07/18 14:23 Dose: 7 mcg/min, 26.67 mls/hr Heparin Sodium/Sodium Chloride (Heparin 33749 Units/250ml 1/2 Normal Saline) 25,000 units in 250 mls @ 9.253 mls/hr IV .Q24H PRN; Protocol PRN Reason: PROTOCOL Last Admin: 03/07/18 17:50 Dose: 6 units/kg/hr, 4.627 mls/hr Fentanyl Citrate 2,500 mcg/ (Sodium Chloride) 250 mls @ 15.42 mls/hr IV .[id number] PRN; Protocol Last Admin: 03/07/18 17:56 Dose: 6 mcg/kg/hr, 46.27 mls/hr Meropenem 1 gm/ Sodium (Chloride) 100 mls @ 100 mls/hr IVPB Q8H ARPIT; Protocol Last Admin: 03/07/18 16:14 Dose: 100 mls/hr Sodium Bicarbonate 75 meq/ (Sodium Chloride) 1,075 mls @ 100 mls/hr IV .[id number] ARPIT Last Admin: 03/07/18 16:12 Dose: 100 mls/hr Aztreonam 1 gm/ Sodium (Chloride) 100 mls @ 200 mls/hr IVPB Q8H ARPIT; Protocol Last Admin: 03/07/18 14:18 Dose: 200 mls/hr Vasopressin 40 units/ Sodium (Chloride) 42 mls @ 2.52 mls/hr IV .[id number] ARPIT; Protocol Last Admin: 03/07/18 12:42 Dose: 0.04 units/min, 2.52 mls/hr Sodium Bicarbonate 175 meq/ (Dextrose) 1,000 mls @ 100 mls/hr IV .Q10H ARPIT Last Admin: 03/07/18 16:12 Dose: 100 mls/hr Insulin Aspart (Novolog) 0 unit SC Q6H ARPIT; Protocol Last Admin: 03/07/18 17:54 Dose: Not Given Pantoprazole Sodium (Protonix Inj) 40 mg IVP Q12H ARPIT Last Admin: 03/07/18 11:00 Dose: 40 mg - Labs Labs: 03/07/18 11:14 03/07/18 05:04 PT 16.9 SECONDS (9.7-12.2) H 03/07/18 05:04 INR 1.5 03/07/18 05:04 APTT 48 SECONDS (21-34) H D 03/07/18 11:14 - Constitutional Appears: Well - Head Exam Head Exam: ATRAUMATIC, NORMAL INSPECTION, NORMOCEPHALIC - Eye Exam Eye Exam: EOMI, Normal appearance, PERRL Pupil Exam: NORMAL ACCOMODATION, PERRL - ENT Exam ENT Exam: Mucous Membranes Moist, Normal Exam - Neck Exam Neck Exam: Full ROM, Normal Inspection. absent: Lymphadenopathy - Respiratory Exam Respiratory Exam: Decreased Breath Sounds - Cardiovascular Exam Cardiovascular Exam: REGULAR RHYTHM, +S1, +S2 - GI/Abdominal Exam GI & Abdominal Exam: Soft, Diminished Bowel Sounds - Rectal Exam Rectal Exam: Deferred
--- NOTE | 2018-03-07 23:50 | CARD ---
APPROVED REPORT Date of service: 03/06/2018 EKG Measurement Heart [id number] <Conclusion> Normal sinus rhythm Normal ECG
[2018-03-08] MEDS: (Novolog) Insulin Aspart, Recombinant 100 u/ml 10 ml vial SC SCH ×4 (00:06→19:50)
--- NOTE | 2018-03-08 02:10 | OP ---
PROCEDURE DATE: 03/06/2018 PREOPERATIVE DIAGNOSIS: Ischemic bowel. POSTOPERATIVE DIAGNOSIS: Ischemic bowel. PROCEDURE: Exploratory laparotomy. SURGEON: Armando Freitas MD FELTMAKER: Mila Thompson DO TYPE OF ANESTHESIA: General. ANESTHESIA ADMINISTERED BY: Dr. Sharma and Dr. Yonatan Shannon. DESCRIPTION OF PROCEDURE: With the patient in the supine position under adequate general anesthesia, the abdomen was prepped and draped in the usual sterile manner. The patient is status post a fairly recent Whipple resection three months previously with bilateral upper abdominal Chevron incision. She is also status post a previous hysterectomy with a lower midline incision. Midline incision was made in the mid abdomen from just below the umbilicus upward towards the end of the Chevron incision and taken down through the subcutaneous tissue. The fascia was divided in the midline to allow entry into the peritoneal cavity. Upon entry into the peritoneal cavity, there was noted to be a pale ischemic appearing small bowel and a quantity of hemorrhagic appearing fluid which was not significantly foul smelling. There was no evidence of any perforation or leakage. The incision was opened adequately to allow inspection of the small bowel. The transverse colon was possibly visualized at the upper end of the incision and a significant portion of the small bowel was visualized with some adhesions lysed to allow better visualization. The entire visualized small bowel was equally ischemic in appearance with no focal areas of necrosis or ischemia. A portion of the distal sigmoid and upper rectum did appear more perfused. Pulsations were palpable within the aorta down to the area of the iliac bifurcation with some irregularity. No definite pulsation was palpable within the small bowel mesentery. There was no evidence of any internal hernia or closed loop obstruction to account for any focal bowel injury. As the entire small bowel appeared to be involved by the ischemic process, decision was made to close the patient and pursue therapeutics to improve blood flow including possibly CT angiogram and anticoagulation with the intention to perform a second look at a later time if the patient improved. The midline was therefore closed with running suture of #1 double stranded PDS and the skin was closed with leyda. A dry sterile dressing was applied. The patient tolerated the procedure well remaining with relatively stable vital signs although she was on pressors and maintaining urine output and transferred back to the ICU intubated in critical condition. Armando Freitas MD [facility] # [id number]
[2018-03-08] MEDS: SODIUM BICARBONATE IV SCH ×3 (02:25→15:14)
[2018-03-08] MEDS: DEXTROSE 5% IV SCH ×3 (02:25→15:14)
[2018-03-08] MEDS: WATER IV SCH ×3 (02:25→15:14)
[2018-03-08] MEDS: Albumin Human 25% (12.5 gm/50 ml) IV SCH ×2 (03:23→10:53)
[2018-03-08 05:16] LABS: ARTERIAL BLOOD GAS HCO3 30.1 mmol/L (21-28); ARTERIAL BLOOD GAS O2 SAT 96.7 % (95-98); ARTERIAL BLOOD GAS PCO2 32 mm/Hg (35-45); ARTERIAL BLOOD GAS PH 7.56 (7.35-7.45); ARTERIAL BLOOD GAS PO2 62 mm/Hg (80-100); ARTERIAL BLOOD GAS TCO2 29.7 mmol/L (22-28)
[2018-03-08] MEDS: Aztreonam 1 GM in Sodium Chloride 0.9% 100 ML IVPB SCH ×3 (05:35→21:34)
[2018-03-08 06:08] LABS: BASO % 0.2 % (0.0-2.0); EOS # 0.3 K/uL (0.0-0.7); EOS % 2.8 % (0.0-4.0); LYMPH # 1.4 K/uL (1.0-4.3); LYMPH % 11.6 % (20.0-40.0); MEAN CELL VOLUME 90.2 fL (81.0-99.0); MEAN CORPUSCULAR HGB CONC 34.4 g/dL (33.0-37.0); MEAN PLATELET VOLUME 8.2 fL (7.2-11.7); MONO # 0.2 K/uL (0.0-0.8); MONO % 1.4 % (0.0-10.0); NEUT # 9.9 K/uL (1.8-7.0); NRBC % 0.2 % (0.0-2.0); PLATELET COUNT 256 K/uL (130-400); RBC 3.22 Mil/uL (3.80-5.20); RED CELL DISTRIBUTION WIDTH 15.9 % (11.5-14.5); WHITE BLOOD COUNT 11.8 K/uL (4.8-10.8)
[2018-03-08] MEDS: Meropenem 1 GM in Sodium Chloride 0.9% 100 ML IVPB SCH ×2 (06:28→15:16)
[2018-03-08 06:30] LABS: ALB/GLOB RATIO 1.5 (1.0-2.1); ALBUMIN 3.1 g/dL (3.5-5.0); ALT/SGPT 103 U/L (9-52); AST/SGOT 154 U/L (14-36); BLOOD UREA NITROGEN 26 mg/dL (7-17); CALCIUM 7.1 mg/dl (8.6-10.4); GFR NON-AFRICAN AMERICAN > 60
--- NOTE | 2018-03-08 09:12 | CP.PCM.PN ---
Subjective - Date & Time of Evaluation Date of Evaluation: 03/08/18 Time of Evaluation: 09:03 - Subjective Subjective: Surgery: Dr. Freitas Pt seen and examined. No acute overnight events. Pt is clinically starting to show some improvement, she's off all pressors & her MAPs have remained above 60, UOP > 40cc/hr. Pt is also less acidotic with decreasing lactate & WBC. She continues to be intubated on light sedation and abdomen remains diffusely render with slight distention. Tmax 100.6 overnight. Objective - Vital Signs/Intake and Output Vital Signs (last 24 hours): Temp Pulse Resp BP Pulse Ox 99.5 F 106 H 20 102/45 L 95 03/08/18 04:00 03/08/18 07:08 03/08/18 07:08 03/08/18 07:08 03/08/18 07:08 Intake and Output: 03/08/18 03/08/18 06:59 18:59 Intake Total 3750.7 Output Total 780 Balance 2970.7 - Medications Medications: Current Medications Albumin Human (Albumin Human 25% (12.5 Gm/50 Ml)) 25 gm IV Q6H ARPIT Stop: 03/08/18 10:01 Last Admin: 03/08/18 03:23 Dose: 25 gm Dextrose (Dextrose 50% Inj) 0 ml IV STAT PRN; Protocol PRN Reason: Hypoglycemia Protocol Dextrose (Glutose 15) 0 gm PO ONCE PRN; Protocol PRN Reason: Hypoglycemia Protocol Glucagon (Glucagen Diagnostic Kit) 0 mg IM STAT PRN; Protocol PRN Reason: Hypoglycemia Protocol Dextrose (Dextrose 5% In Water 1000 Ml) 1,000 mls @ 0 mls/hr IV .Q0M PRN; Protocol PRN Reason: Hypoglycemia Protocol Norepinephrine Bitartrate 8 mg (/ Sodium Chloride) 508 mls @ 15.24 mls/hr IV .Q24H PRN; Protocol PRN Reason: TITRATE PER MD ORDER Last Titration: 03/07/18 23:00 Dose: 0 mcg/min, 0 mls/hr Heparin Sodium/Sodium Chloride (Heparin 20752 Units/250ml 1/2 Normal Saline) 25,000 units in 250 mls @ 9.253 mls/hr IV .Q24H PRN; Protocol PRN Reason: PROTOCOL Last Admin: 03/07/18 17:50 Dose: 6 units/kg/hr, 4.627 mls/hr Fentanyl Citrate 2,500 mcg/ (Sodium Chloride) 250 mls @ 15.42 mls/hr IV .[id number] PRN; Protocol Last Admin: 03/08/18 05:37 Dose: 6 mcg/kg/hr, 46.27 mls/hr Meropenem 1 gm/ Sodium (Chloride) 100 mls @ 100 mls/hr IVPB Q8H ARPIT; Protocol Last Admin: 03/08/18 06:28 Dose: 100 mls/hr Aztreonam 1 gm/ Sodium (Chloride) 100 mls @ 200 mls/hr IVPB Q8H ARPIT; Protocol Last Admin: 03/08/18 05:35 Dose: 200 mls/hr Vasopressin 40 units/ Sodium (Chloride) 42 mls @ 2.52 mls/hr IV .[id number] ARPIT; Protocol Last Admin: 03/08/18 06:50 Dose: Not Given Sodium Bicarbonate 175 meq/ (Dextrose) 1,075 mls @ 100 mls/hr IV .[id number] ARPIT Last Admin: 03/08/18 05:39 Dose: 100 mls/hr Insulin Aspart (Novolog) 0 unit SC Q6H ARPIT; Protocol Last Admin: 03/08/18 06:49 Dose: Not Given Pantoprazole Sodium (Protonix Inj) 40 mg IVP Q12H ARPIT Last Admin: 03/07/18 23:30 Dose: 40 mg - Labs Labs: 03/08/18 05:59 03/08/18 05:59 PT 16.9 SECONDS (9.7-12.2) H 03/07/18 05:04 INR 1.5 03/07/18 05:04 APTT 49 SECONDS (21-34) H 03/08/18 05:59 - Constitutional Appears: No Acute Distress - Head Exam Head Exam: ATRAUMATIC, NORMOCEPHALIC - ENT Exam Additional comments: ETT & NGT in place - Respiratory Exam Respiratory Exam: Decreased Breath Sounds (b/l lower lung rivas ) - Cardiovascular Exam Cardiovascular Exam: Tachycardia - GI/Abdominal Exam GI & Abdominal Exam: Distended, Tenderness (diffuse), Diminished Bowel Sounds Additional comments: midline incision with leyda; dressing C/D/I. Jejunostomy tube in place LLQ - Skin Skin Exam: Dry, Warm Assessment and Plan - Assessment and Plan (Free Text) Assessment: 82F with mesenteric ischemia & pneumotosis s/p Ex-Lap with diffusely dusky SB intra-op; POD#2 Plan: - cont conservative management - monitor UOP with goal > 30cc/hr - cont hep drip - jejunostomy tube to gravity - d/w Dr. Fortino Kate
[2018-03-08] MEDS ORDERED: Magnesium Sulfate 1 gm in D5W 1 GM/100 ML BAG IVPB ONE (10:00)
--- NOTE | 2018-03-08 10:12 | CP.CCUPN ---
CCU Subjective - Physician Review Events Since Last Encounter (Free Text): 03/08/18 10:10 Patient is 82-year-old female with a history of biliary ductal carcinoma, status post Whipple's procedure recently underwent in [facility] Patient admitted to the hospital because of abdominal pain, nausea and vomiting. Patient underwent surgical intervention, laparotomy and the adhesionlysis on 03/06/2018. Patient was initially noted to have ischemic bowel. patient had an episode of hypotension. Seen by nut process helper. Patient had a CT angiogram of the abdomen on 03/07/2018 noted to have ischemic small bowel and occluded SMA. And also suspected hepatic infarct, splenic infarct, renal cortical infarct and free intraperitoneal air noted. Patient is currently on ventilator. She is awake and responding. On pain management. Fentanyl drip. on ventilation. On examination: Chest good air entry Abdomen LITTLE drain noted. Post surgical. Edema bilaterally noted. Urine output is 25 mL/h Patient's labs reviewed Chest x-ray showing ET tube in position Bilateral pleural effusion CHF pattern noted. Patient has a severe positive balance of 15 L noted. Patient is currently off Levophed, vasopressin Assessment: Patient is a 82-year-old female with a history of diabetes hypertension and hypothyroidism. Distal biliary duct obstruction, status post Whipple's procedure. Now admitted with atherosclerotic obstruction SME obstruction, associated with a multiple infarct intra-abdominal. Overall prognosis very poor Patient is on antibiotic empirically. On ventilator. Will continue the pain management IV fluid will reduce the vessel process as tolerated. Overall prognosis very poor. Will follow the patient CCU Objective - Vital Signs / Intake & Output Vital Signs (Last 4 hours): Vital Signs Pulse Resp BP Pulse Ox 03/08/18 07:08 106 H 20 102/45 L 95 03/08/18 07:00 100 H 20 95 Intake and Output (Last 8hrs): Intake & Output 03/07/18 03/08/18 03/08/18 22:59 06:59 14:59 Intake Total 3311.6 2448.1 Output Total 1230 510 Balance 2081.6 1938.1 Weight 176 lb 5.917 oz Intake: IV 344.4 536.0 Intake, IV Amount 2642.2 1912.1 Distal Port Femoral 800 700 Distal Port Femoral Y 800 400 site Left Antecubital 343.4 36.8 Medial Femoral Y Site 20.0 4.9 Medial Port Femoral 150.2 0 Proximal Port Femoral 324.0 370.4 Right Hand 204.6 400 Blood Product 325 Red Blood Cells Cpd As1 325 Lr Unit [id number] Red Blood Cells Cpd As1 0 Lr Unit [id number] Output: Gastric Amount 300 Right 300 Drainage 700 0 LEFT DUODENOSTOMY 0 0 Right Nare 700 Urine 530 210 Urethral (Tran) 530 210 - Medications Active Medications: Active Medications Generic Name Dose Route Start Last Admin Trade Name Freq PRN Reason Stop Dose Admin Dextrose 0 ml 03/06/18 15:02 Dextrose 50% Inj IV STAT PRN Hypoglycemia Protocol Protocol Dextrose 0 gm 03/06/18 15:02 Glutose 15 PO ONCE PRN Hypoglycemia Protocol Protocol Glucagon 0 mg 03/06/18 15:02 Glucagen Diagnostic Kit IM STAT PRN Hypoglycemia Protocol Protocol Dextrose 1,000 mls @ 0 mls/hr 03/06/18 15:02 Dextrose 5% In Water 1000 Ml IV .Q0M PRN Hypoglycemia Protocol Protocol Per Protocol Heparin Sodium/Sodium Chloride 25,000 units in 250 mls @ 9.253 mls/hr 03/06/18 23:55 03/07/18 17:50 Heparin 59883 Units/250ml 1/2 Normal Saline IV 6 units/kg/hr .Q24H PRN 4.627 mls/hr PROTOCOL Administration Protocol 12 UNITS/KG/HR Fentanyl Citrate 2,500 mcg/ 250 mls @ 15.42 mls/hr 03/07/18 02:15 03/08/18 05:37 Sodium Chloride IV 6 mcg/kg/hr .[id number] PRN 46.27 mls/hr Administration Protocol 2 MCG/KG/HR Meropenem 1 gm/ Sodium 100 mls @ 100 mls/hr 03/07/18 07:15 03/08/18 06:28 Chloride IVPB 100 mls/hr Q8H ARPIT Administration Protocol Aztreonam 1 gm/ Sodium 100 mls @ 200 mls/hr 03/07/18 14:00 03/08/18 05:35 Chloride IVPB 200 mls/hr Q8H ARPIT Administration Protocol Vasopressin 40 units/ Sodium 42 mls @ 2.52 mls/hr 03/07/18 12:30 03/08/18 06:50 Chloride IV Not Given .[id number] ARPIT Protocol 0.04 UNITS/MIN Sodium Bicarbonate 175 meq/ 1,075 mls @ 100 mls/hr 03/08/18 03:15 03/08/18 05:39 Dextrose IV 100 mls/hr .[id number] ARP[facility] Administration Potassium Chloride 20 meq in 100 mls @ 50 mls/hr 03/08/18 11:00 Potassium Chloride 20 Meq/100 Ml IVPB 03/08/18 12:59 ONCE ONE Magnesium Sulfate/Dextrose 1 gm in 100 mls @ 100 mls/hr 03/08/18 10:00 Magnesium Sulfate 1 Gm/100 Ml D5w IVPB 03/08/18 10:59 ONCE ONE Insulin Aspart 0 unit 03/06/18 18:00 03/08/18 06:49 Novolog SC Not Given Q6H [facility]PIT Protocol Pantoprazole Sodium 40 mg 03/07/18 10:00 03/07/18 23:30 Protonix Inj IVP 40 mg Q12H [facility] Administration - Patient Studies Lab Studies: Microbiology Studies 03/07/18 09:02 Urine Culture - Final Urine,Catheterized No Growth (<1,000 CFU/ML) 03/06/18 17:22 MRSA Culture (Admit) - Final Naris MRSA NOT DETECTED 03/07/18 15:47 Gram Stain - Final Trachasp 03/06/18 13:17 Blood Culture - Preliminary Blood NO GROWTH AFTER 24 HOURS 03/06/18 13:17 Blood Culture - Preliminary Blood NO GROWTH AFTER 24 HOURS Lab Studies 03/08/18 03/08/18 03/08/18 Range/Units 06:00 05:59 05:59 WBC (4.8-10.8) K/uL RBC (3.80-5.20) Mil/uL Hgb (11.0-16.0) g/dL Hct (34.0-47.0) % MCV (81.0-99.0) fL MCH (27.0-31.0) pg MCHC (33.0-37.0) g/dL RDW (11.5-14.5) % Plt Count (130-400) K/uL MPV (7.2-11.7) fL Neut % (Auto) (50.0-75.0) % Lymph % (Auto) (20.0-40.0) % [place] % (Auto) (0.0-10.0) % Eos % (Auto) (0.0-4.0) % Baso % (Auto) (0.0-2.0) % Neut # (Auto) (1.8-7.0) K/uL Lymph # (Auto) (1.0-4.3) K/uL [place] # (Auto) (0.0-0.8) K/uL Eos # (Auto) (0.0-0.7) K/uL Baso # (Auto) (0.0-0.2) K/uL APTT 49 H (21-34) SECONDS Puncture Site pCO2 (35-45) mm/Hg pO2 (80-100) mm/Hg HCO3 (21-28) mmol/L ABG pH (7.35-7.45) ABG Total CO2 (22-28) mmol/L ABG O2 Saturation (95-98) % ABG Base Excess (-2.0-3.0) mmol/L Michele Test ABG Potassium (3.6-5.2) mmol/L A-a O2 Difference mm/Hg Respiratory Index Sodium 143 (132-148) mmol/l Chloride 105 (98-107) mmol/L Glucose (65-105) mg/dl Lactate (0.7-2.1) mmol/L Vent Mode Mechanical Rate FiO2 % Tidal Volume PEEP Crit Value Called To Crit Value Called By Crit Value Read Back Blood Gas Notified Time Potassium 3.2 L (3.6-5.2) mmol/L Carbon Dioxide 28 (22-30) mmol/L Anion Gap 13 (10-20) BUN 26 H (7-17) mg/dL Creatinine 0.6 L (0.7-1.2) mg/dL Est GFR ( Amer) > 60 Est GFR (Non-Af Amer) > 60 POC Glucose (mg/dL) 141 H (65-110) mg/dL Random Glucose 131 H (65-105) mg/dL Lactic Acid (0.7-2.1) mmol/L Calcium 7.1 L (8.6-10.4) mg/dl Phosphorus 2.3 L (2.5-4.5) mg/dL Magnesium 1.6 (1.6-2.3) mg/dL Total Bilirubin 4.7 H (0.2-1.3) mg/dL AST 154 H D (14-36) U/L ALT 103 H (9-52) U/L Alkaline Phosphatase 143 H D (38-126) U/L Total Creatine Kinase (30-135) U/L CK-MB (Mass) (0.0-3.38) ng/mL Troponin I (0.00-0.120) ng/mL Total Protein 5.1 L (6.3-8.3) g/dL Albumin 3.1 L (3.5-5.0) g/dL Globulin 2.0 L (2.2-3.9) gm/dL Albumin/Globulin Ratio 1.5 (1.0-2.1) Arterial Blood Potassium (3.6-5.2) mmol/L Random Vancomycin ug/mL Blood Type Blood Type Confirm Antibody Screen 03/08/18 03/08/18 03/08/18 Range/Units 05:59 05:59 05:10 WBC 11.8 H (4.8-10.8) K/uL RBC 3.22 L (3.80-5.20) Mil/uL Hgb 10.0 L (11.0-16.0) g/dL Hct 29.0 L (34.0-47.0) % MCV 90.2 D (81.0-99.0) fL MCH 31.0 (27.0-31.0) pg MCHC 34.4 (33.0-37.0) g/dL RDW 15.9 H (11.5-14.5) % Plt Count 256 (130-400) K/uL MPV 8.2 (7.2-11.7) fL Neut % (Auto) 84.0 H (50.0-75.0) % Lymph % (Auto) 11.6 L (20.0-40.0) % [place] % (Auto) 1.4 (0.0-10.0) % Eos % (Auto) 2.8 (0.0-4.0) % Baso % (Auto) 0.2 (0.0-2.0) % Neut # (Auto) 9.9 H (1.8-7.0) K/uL Lymph # (Auto) 1.4 (1.0-4.3) K/uL [place] # (Auto) 0.2 (0.0-0.8) K/uL Eos # (Auto) 0.3 (0.0-0.7) K/uL Baso # (Auto) 0.0 (0.0-0.2) K/uL APTT (21-34) SECONDS Puncture Site [place] pCO2 32 L (35-45) mm/Hg pO2 62 L (80-100) mm/Hg HCO3 30.1 H (21-28) mmol/L ABG pH 7.56 H (7.35-7.45) ABG Total CO2 29.7 H (22-28) mmol/L ABG O2 Saturation 96.7 (95-98) % ABG Base Excess 6.7 H (-2.0-3.0) mmol/L Michele Test Na ABG Potassium 3.4 L (3.6-5.2) mmol/L A-a O2 Difference 326.0 mm/Hg Respiratory Index 5.3 Sodium 144.0 (132-148) mmol/l Chloride 109.0 H (98-107) mmol/L Glucose 144 H (65-105) mg/dl Lactate 3.7 H (0.7-2.1) mmol/L Vent Mode Prvc Mechanical Rate 20 FiO2 60.0 % Tidal Volume 450 PEEP 5 Crit Value Called To Crit Value Called By Crit Value Read Back Blood Gas Notified Time Potassium (3.6-5.2) mmol/L Carbon Dioxide (22-30) mmol/L Anion Gap (10-20) BUN (7-17) mg/dL Creatinine (0.7-1.2) mg/dL Est GFR ( Amer) Est GFR (Non-Af Amer) POC Glucose (mg/dL) (65-110) mg/dL Random Glucose (65-105) mg/dL Lactic Acid 3.8 H (0.7-2.1) mmol/L Calcium (8.6-10.4) mg/dl Phosphorus (2.5-4.5) mg/dL Magnesium (1.6-2.3) mg/dL Total Bilirubin (0.2-1.3) mg/dL AST (14-36) U/L ALT (9-52) U/L Alkaline Phosphatase (38-126) U/L Total Creatine Kinase (30-135) U/L CK-MB (Mass) (0.0-3.38) ng/mL Troponin I (0.00-0.120) ng/mL Total Protein (6.3-8.3) g/dL Albumin (3.5-5.0) g/dL Globulin (2.2-3.9) gm/dL Albumin/Globulin Ratio (1.0-2.1) Arterial Blood Potassium 3.4 L (3.6-5.2) mmol/L Random Vancomycin ug/mL Blood Type Blood Type Confirm Antibody Screen 03/08/18 03/07/18 03/07/18 Range/Units 00:38 23:38 20:17 WBC (4.8-10.8) K/uL RBC (3.80-5.20) Mil/uL Hgb (11.0-16.0) g/dL Hct (34.0-47.0) % MCV (81.0-99.0) fL MCH (27.0-31.0) pg MCHC (33.0-37.0) g/dL RDW (11.5-14.5) % Plt Count (130-400) K/uL MPV (7.2-11.7) fL Neut % (Auto) (50.0-75.0) % Lymph % (Auto) (20.0-40.0) % [place] % (Auto) (0.0-10.0) % Eos % (Auto) (0.0-4.0) % Baso % (Auto) (0.0-2.0) % Neut # (Auto) (1.8-7.0) K/uL Lymph # (Auto) (1.0-4.3) K/uL [place] # (Auto) (0.0-0.8) K/uL Eos # (Auto) (0.0-0.7) K/uL Baso # (Auto) (0.0-0.2) K/uL APTT 49 H (21-34) SECONDS Puncture Site pCO2 (35-45) mm/Hg pO2 (80-100) mm/Hg HCO3 (21-28) mmol/L ABG pH (7.35-7.45) ABG Total CO2 (22-28) mmol/L ABG O2 Saturation (95-98) % ABG Base Excess (-2.0-3.0) mmol/L Michele Test ABG Potassium (3.6-5.2) mmol/L A-a O2 Difference mm/Hg Respiratory Index Sodium (132-148) mmol/l Chloride (98-107) mmol/L Glucose (65-105) mg/dl Lactate (0.7-2.1) mmol/L Vent Mode Mechanical Rate FiO2 % Tidal Volume PEEP Crit Value Called To Crit Value Called By Crit Value Read Back Blood Gas Notified Time Potassium (3.6-5.2) mmol/L Carbon Dioxide (22-30) mmol/L Anion Gap (10-20) BUN (7-17) mg/dL Creatinine (0.7-1.2) mg/dL Est GFR ( Amer) Est GFR (Non-Af Amer) POC Glucose (mg/dL) 141 H (65-110) mg/dL Random Glucose (65-105) mg/dL Lactic Acid 4.1 H* (0.7-2.1) mmol/L Calcium (8.6-10.4) mg/dl Phosphorus (2.5-4.5) mg/dL Magnesium (1.6-2.3) mg/dL Total Bilirubin (0.2-1.3) mg/dL AST (14-36) U/L ALT (9-52) U/L Alkaline Phosphatase (38-126) U/L Total Creatine Kinase (30-135) U/L CK-MB (Mass) (0.0-3.38) ng/mL Troponin I (0.00-0.120) ng/mL Total Protein (6.3-8.3) g/dL Albumin (3.5-5.0) g/dL Globulin (2.2-3.9) gm/dL Albumin/Globulin Ratio (1.0-2.1) Arterial Blood Potassium (3.6-5.2) mmol/L Random Vancomycin ug/mL Blood Type Blood Type Confirm Antibody Screen 03/07/18 03/07/18 03/07/18 Range/Units 18:31 17:49 14:48 WBC (4.8-10.8) K/uL RBC (3.80-5.20) Mil/uL Hgb (11.0-16.0) g/dL Hct (34.0-47.0) % MCV (81.0-99.0) fL MCH (27.0-31.0) pg MCHC (33.0-37.0) g/dL RDW (11.5-14.5) % Plt Count (130-400) K/uL MPV (7.2-11.7) fL Neut % (Auto) (50.0-75.0) % Lymph % (Auto) (20.0-40.0) % [place] % (Auto) (0.0-10.0) % Eos % (Auto) (0.0-4.0) % Baso % (Auto) (0.0-2.0) % Neut # (Auto) (1.8-7.0) K/uL Lymph # (Auto) (1.0-4.3) K/uL [place] # (Auto) (0.0-0.8) K/uL Eos # (Auto) (0.0-0.7) K/uL Baso # (Auto) (0.0-0.2) K/uL APTT (21-34) SECONDS Puncture Site Rba pCO2 34 L (35-45) mm/Hg pO2 61 L (80-100) mm/Hg HCO3 24.9 (21-28) mmol/L ABG pH 7.45 (7.35-7.45) ABG Total CO2 24.6 (22-28) mmol/L ABG O2 Saturation 96.9 (95-98) % ABG Base Excess 0.1 (-2.0-3.0) mmol/L Michele Test Na ABG Potassium 3.7 (3.6-5.2) mmol/L A-a O2 Difference 324.0 mm/Hg Respiratory Index 5.3 Sodium 144.0 (132-148) mmol/l Chloride 113.0 H (98-107) mmol/L Glucose 132 H (65-105) mg/dl Lactate 4.4 H* (0.7-2.1) mmol/L Vent Mode Prvc Mechanical Rate 20 FiO2 60.0 % Tidal Volume 450 PEEP 5 Crit Value Called To Icu nurse vitaliy Crit Value Called By Mariluz tracey Crit Value Read Back Y Blood Gas Notified Time 1452 Potassium (3.6-5.2) mmol/L Carbon Dioxide (22-30) mmol/L Anion Gap (10-20) BUN (7-17) mg/dL Creatinine (0.7-1.2) mg/dL Est GFR ( Amer) Est GFR (Non-Af Amer) POC Glucose (mg/dL) 127 H (65-110) mg/dL Random Glucose (65-105) mg/dL Lactic Acid 4.4 H* (0.7-2.1) mmol/L Calcium (8.6-10.4) mg/dl Phosphorus (2.5-4.5) mg/dL Magnesium (1.6-2.3) mg/dL Total Bilirubin (0.2-1.3) mg/dL AST (14-36) U/L ALT (9-52) U/L Alkaline Phosphatase (38-126) U/L Total Creatine Kinase (30-135) U/L CK-MB (Mass) (0.0-3.38) ng/mL Troponin I (0.00-0.120) ng/mL Total Protein (6.3-8.3) g/dL Albumin (3.5-5.0) g/dL Globulin (2.2-3.9) gm/dL Albumin/Globulin Ratio (1.0-2.1) Arterial Blood Potassium 3.7 (3.6-5.2) mmol/L Random Vancomycin ug/mL Blood Type Blood Type Confirm Antibody Screen 03/07/18 03/07/18 03/07/18 Range/Units 14:39 14:39 11:53 WBC (4.8-10.8) K/uL RBC (3.80-5.20) Mil/uL Hgb (11.0-16.0) g/dL Hct (34.0-47.0) % MCV (81.0-99.0) fL MCH (27.0-31.0) pg MCHC (33.0-37.0) g/dL RDW (11.5-14.5) % Plt Count (130-400) K/uL MPV (7.2-11.7) fL Neut % (Auto) (50.0-75.0) % Lymph % (Auto) (20.0-40.0) % [place] % (Auto) (0.0-10.0) % Eos % (Auto) (0.0-4.0) % Baso % (Auto) (0.0-2.0) % Neut # (Auto) (1.8-7.0) K/uL Lymph # (Auto) (1.0-4.3) K/uL [place] # (Auto) (0.0-0.8) K/uL Eos # (Auto) (0.0-0.7) K/uL Baso # (Auto) (0.0-0.2) K/uL APTT (21-34) SECONDS Puncture Site pCO2 (35-45) mm/Hg pO2 (80-100) mm/Hg HCO3 (21-28) mmol/L ABG pH (7.35-7.45) ABG Total CO2 (22-28) mmol/L ABG O2 Saturation (95-98) % ABG Base Excess (-2.0-3.0) mmol/L Michele Test ABG Potassium (3.6-5.2) mmol/L A-a O2 Difference mm/Hg Respiratory Index Sodium (132-148) mmol/l Chloride (98-107) mmol/L Glucose (65-105) mg/dl Lactate (0.7-2.1) mmol/L Vent Mode Mechanical Rate FiO2 % Tidal Volume PEEP Crit Value Called To Crit Value Called By Crit Value Read Back Blood Gas Notified Time Potassium (3.6-5.2) mmol/L Carbon Dioxide (22-30) mmol/L Anion Gap (10-20) BUN (7-17) mg/dL Creatinine (0.7-1.2) mg/dL Est GFR ( Amer) Est GFR (Non-Af Amer) POC Glucose (mg/dL) 165 H (65-110) mg/dL Random Glucose (65-105) mg/dL Lactic Acid 4.6 H* (0.7-2.1) mmol/L Calcium (8.6-10.4) mg/dl Phosphorus (2.5-4.5) mg/dL Magnesium (1.6-2.3) mg/dL Total Bilirubin (0.2-1.3) mg/dL AST (14-36) U/L ALT (9-52) U/L Alkaline Phosphatase (38-126) U/L Total Creatine Kinase 343 H (30-135) U/L CK-MB (Mass) 3.87 H (0.0-3.38) ng/mL Troponin I 0.0310 (0.00-0.120) ng/mL Total Protein (6.3-8.3) g/dL Albumin (3.5-5.0) g/dL Globulin (2.2-3.9) gm/dL Albumin/Globulin Ratio (1.0-2.1) Arterial Blood Potassium (3.6-5.2) mmol/L Random Vancomycin ug/mL Blood Type Blood Type Confirm Antibody Screen 03/07/18 03/07/18 03/07/18 Range/Units 11:14 11:14 11:14 WBC 14.3 H (4.8-10.8) K/uL RBC 2.86 L (3.80-5.20) Mil/uL Hgb 8.8 L (11.0-16.0) g/dL Hct 26.4 L (34.0-47.0) % MCV 92.2 (81.0-99.0) fL MCH 30.8 (27.0-31.0) pg MCHC 33.4 (33.0-37.0) g/dL RDW 17.9 H (11.5-14.5) % Plt Count 348 (130-400) K/uL MPV 7.8 (7.2-11.7) fL Neut % (Auto) (50.0-75.0) % Lymph % (Auto) (20.0-40.0) % [place] % (Auto) (0.0-10.0) % Eos % (Auto) (0.0-4.0) % Baso % (Auto) (0.0-2.0) % Neut # (Auto) (1.8-7.0) K/uL Lymph # (Auto) (1.0-4.3) K/uL [place] # (Auto) (0.0-0.8) K/uL Eos # (Auto) (0.0-0.7) K/uL Baso # (Auto) (0.0-0.2) K/uL APTT (21-34) SECONDS Puncture Site pCO2 (35-45) mm/Hg pO2 (80-100) mm/Hg HCO3 (21-28) mmol/L ABG pH (7.35-7.45) ABG Total CO2 (22-28) mmol/L ABG O2 Saturation (95-98) % ABG Base Excess (-2.0-3.0) mmol/L Michele Test ABG Potassium (3.6-5.2) mmol/L A-a O2 Difference mm/Hg Respiratory Index Sodium (132-148) mmol/l Chloride (98-107) mmol/L Glucose (65-105) mg/dl Lactate (0.7-2.1) mmol/L Vent Mode Mechanical Rate FiO2 % Tidal Volume PEEP Crit Value Called To Crit Value Called By Crit Value Read Back Blood Gas Notified Time Potassium (3.6-5.2) mmol/L Carbon Dioxide (22-30) mmol/L Anion Gap (10-20) BUN (7-17) mg/dL Creatinine (0.7-1.2) mg/dL Est GFR ( Amer) Est GFR (Non-Af Amer) POC Glucose (mg/dL) (65-110) mg/dL Random Glucose (65-105) mg/dL Lactic Acid 5.1 H* (0.7-2.1) mmol/L Calcium (8.6-10.4) mg/dl Phosphorus (2.5-4.5) mg/dL Magnesium (1.6-2.3) mg/dL Total Bilirubin (0.2-1.3) mg/dL AST (14-36) U/L ALT (9-52) U/L Alkaline Phosphatase (38-126) U/L Total Creatine Kinase (30-135) U/L CK-MB (Mass) (0.0-3.38) ng/mL Troponin I (0.00-0.120) ng/mL Total Protein (6.3-8.3) g/dL Albumin (3.5-5.0) g/dL Globulin (2.2-3.9) gm/dL Albumin/Globulin Ratio (1.0-2.1) Arterial Blood Potassium (3.6-5.2) mmol/L Random Vancomycin 5.3 ug/mL Blood Type Blood Type Confirm Antibody Screen 03/07/18 03/06/18 Range/Units 11:14 18:52 WBC (4.8-10.8) K/uL RBC (3.80-5.20) Mil/uL Hgb (11.0-16.0) g/dL Hct (34.0-47.0) % MCV (81.0-99.0) fL MCH (27.0-31.0) pg MCHC (33.0-37.0) g/dL RDW (11.5-14.5) % Plt Count (130-400) K/uL MPV (7.2-11.7) fL Neut % (Auto) (50.0-75.0) % Lymph % (Auto) (20.0-40.0) % [place] % (Auto) (0.0-10.0) % Eos % (Auto) (0.0-4.0) % Baso % (Auto) (0.0-2.0) % Neut # (Auto) (1.8-7.0) K/uL Lymph # (Auto) (1.0-4.3) K/uL [place] # (Auto) (0.0-0.8) K/uL Eos # (Auto) (0.0-0.7) K/uL Baso # (Auto) (0.0-0.2) K/uL APTT 48 H D (21-34) SECONDS Puncture Site pCO2 (35-45) mm/Hg pO2 (80-100) mm/Hg HCO3 (21-28) mmol/L ABG pH (7.35-7.45) ABG Total CO2 (22-28) mmol/L ABG O2 Saturation (95-98) % ABG Base Excess (-2.0-3.0) mmol/L Michele Test ABG Potassium (3.6-5.2) mmol/L A-a O2 Difference mm/Hg Respiratory Index Sodium (132-148) mmol/l Chloride (98-107) mmol/L Glucose (65-105) mg/dl Lactate (0.7-2.1) mmol/L Vent Mode Mechanical Rate FiO2 % Tidal Volume PEEP Crit Value Called To Crit Value Called By Crit Value Read Back Blood Gas Notified Time Potassium (3.6-5.2) mmol/L Carbon Dioxide (22-30) mmol/L Anion Gap (10-20) BUN (7-17) mg/dL Creatinine (0.7-1.2) mg/dL Est GFR ( Amer) Est GFR (Non-Af Amer) POC Glucose (mg/dL) (65-110) mg/dL Random Glucose (65-105) mg/dL Lactic Acid (0.7-2.1) mmol/L Calcium (8.6-10.4) mg/dl Phosphorus (2.5-4.5) mg/dL Magnesium (1.6-2.3) mg/dL Total Bilirubin (0.2-1.3) mg/dL AST (14-36) U/L ALT (9-52) U/L Alkaline Phosphatase (38-126) U/L Total Creatine Kinase (30-135) U/L CK-MB (Mass) (0.0-3.38) ng/mL Troponin I (0.00-0.120) ng/mL Total Protein (6.3-8.3) g/dL Albumin (3.5-5.0) g/dL Globulin (2.2-3.9) gm/dL Albumin/Globulin Ratio (1.0-2.1) Arterial Blood Potassium (3.6-5.2) mmol/L Random Vancomycin ug/mL Blood Type A POSITIVE Blood Type Confirm A POSITIVE Antibody Screen Negative Laboratory Results - last 24 hr 03/06/18 03/07/18 03/07/18 18:52 11:14 11:14 WBC RBC Hgb Hct MCV MCH MCHC RDW Plt Count MPV Neut % (Auto) Lymph % (Auto) [place] % (Auto) Eos % (Auto) Baso % (Auto) Neut # (Auto) Lymph # (Auto) [place] # (Auto) Eos # (Auto) Baso # (Auto) APTT 48 H D Puncture Site pCO2 pO2 HCO3 ABG pH ABG Total CO2 ABG O2 Saturation ABG Base Excess Michele Test ABG Potassium A-a O2 Difference Respiratory Index Sodium Chloride Glucose Lactate Vent Mode Mechanical Rate FiO2 Tidal Volume PEEP Crit Value Called To Crit Value Called By Crit Value Read Back Blood Gas Notified Time Potassium Carbon Dioxide Anion Gap BUN Creatinine Est GFR ( Amer) Est GFR (Non-Af Amer) POC Glucose (mg/dL) Random Glucose Lactic Acid 5.1 H* Calcium Phosphorus Magnesium Total Bilirubin AST ALT Alkaline Phosphatase Total Creatine Kinase CK-MB (Mass) Troponin I Total Protein Albumin Globulin Albumin/Globulin Ratio Arterial Blood Potassium Random Vancomycin Blood Type A POSITIVE Blood Type Confirm A POSITIVE Antibody Screen Negative 03/07/18 03/07/18 03/07/18 11:14 11:14 11:53 WBC 14.3 H RBC 2.86 L Hgb 8.8 L Hct 26.4 L MCV 92.2 MCH 30.8 MCHC 33.4 RDW 17.9 H Plt Count 348 MPV 7.8 Neut % (Auto) Lymph % (Auto) [place] % (Auto) Eos % (Auto) Baso % (Auto) Neut # (Auto) Lymph # (Auto) [place] # (Auto) Eos # (Auto) Baso # (Auto) APTT Puncture Site pCO2 pO2 HCO3 ABG pH ABG Total CO2 ABG O2 Saturation ABG Base Excess Michele Test ABG Potassium A-a O2 Difference Respiratory Index Sodium Chloride Glucose Lactate Vent Mode Mechanical Rate FiO2 Tidal Volume PEEP Crit Value Called To Crit Value Called By Crit Value Read Back Blood Gas Notified Time Potassium Carbon Dioxide Anion Gap BUN Creatinine Est GFR ( Amer) Est GFR (Non-Af Amer) POC Glucose (mg/dL) 165 H Random Glucose Lactic Acid Calcium Phosphorus Magnesium Total Bilirubin AST ALT Alkaline Phosphatase Total Creatine Kinase CK-MB (Mass) Troponin I Total Protein Albumin Globulin Albumin/Globulin Ratio Arterial Blood Potassium Random Vancomycin 5.3 Blood Type Blood Type Confirm Antibody Screen 03/07/18 03/07/18 03/07/18 14:39 14:39 14:48 WBC RBC Hgb Hct MCV MCH MCHC RDW Plt Count MPV Neut % (Auto) Lymph % (Auto) [place] % (Auto) Eos % (Auto) Baso % (Auto) Neut # (Auto) Lymph # (Auto) [place] # (Auto) Eos # (Auto) Baso # (Auto) APTT Puncture Site Rba pCO2 34 L pO2 61 L HCO3 24.9 ABG pH 7.45 ABG Total CO2 24.6 ABG O2 Saturation 96.9 ABG Base Excess 0.1 Michele Test Na ABG Potassium 3.7 A-a O2 Difference 324.0 Respiratory Index 5.3 Sodium 144.0 Chloride 113.0 H Glucose 132 H Lactate 4.4 H* Vent Mode Prvc Mechanical Rate 20 FiO2 60.0 Tidal Volume 450 PEEP 5 Crit Value Called To [facility] nurse vitaliy Crit Value Called By [facility] rt Crit Value Read Back Y Blood Gas Notified Time 1452 Potassium Carbon Dioxide Anion Gap BUN Creatinine Est GFR ( Amer) Est GFR (Non-Af Amer) POC Glucose (mg/dL) Random Glucose Lactic Acid 4.6 H* Calcium Phosphorus Magnesium Total Bilirubin AST ALT Alkaline Phosphatase Total Creatine Kinase 343 H CK-MB (Mass) 3.87 H Troponin I 0.0310 Total Protein Albumin Globulin Albumin/Globulin Ratio Arterial Blood Potassium 3.7 Random Vancomycin Blood Type Blood Type Confirm Antibody Screen 03/07/18 03/07/18 03/07/18 17:49 18:31 20:17 WBC RBC Hgb Hct MCV MCH MCHC RDW Plt Count MPV Neut % (Auto) Lymph % (Auto) [place] % (Auto) Eos % (Auto) Baso % (Auto) Neut # (Auto) Lymph # (Auto) [place] # (Auto) Eos # (Auto) Baso # (Auto) APTT Puncture Site pCO2 pO2 HCO3 ABG pH ABG Total CO2 ABG O2 Saturation ABG Base Excess Michele Test ABG Potassium A-a O2 Difference Respiratory Index Sodium Chloride Glucose Lactate Vent Mode Mechanical Rate FiO2 Tidal Volume PEEP Crit Value Called To Crit Value Called By Crit Value Read Back Blood Gas Notified Time Potassium Carbon Dioxide Anion Gap BUN Creatinine Est GFR ( Amer) Est GFR (Non-Af Amer) POC Glucose (mg/dL) 127 H Random Glucose Lactic Acid 4.4 H* 4.1 H* Calcium Phosphorus Magnesium Total Bilirubin AST ALT Alkaline Phosphatase Total Creatine Kinase CK-MB (Mass) Troponin I Total Protein Albumin Globulin Albumin/Globulin Ratio Arterial Blood Potassium Random Vancomycin Blood Type Blood Type Confirm Antibody Screen 03/07/18 03/08/18 03/08/18 23:38 00:38 05:10 WBC RBC Hgb Hct MCV MCH MCHC RDW Plt Count MPV Neut % (Auto) Lymph % (Auto) [place] % (Auto) Eos % (Auto) Baso % (Auto) Neut # (Auto) Lymph # (Auto) [place] # (Auto) Eos # (Auto) Baso # (Auto) APTT 49 H Puncture Site Tsering pCO2 32 L pO2 62 L HCO3 30.1 H ABG pH 7.56 H ABG Total CO2 29.7 H ABG O2 Saturation 96.7 ABG Base Excess 6.7 H Michele Test Na ABG Potassium 3.4 L A-a O2 Difference 326.0 Respiratory Index 5.3 Sodium 144.0 Chloride 109.0 H Glucose 144 H Lactate 3.7 H Vent Mode Prvc Mechanical Rate 20 FiO2 60.0 Tidal Volume 450 PEEP 5 Crit Value Called To Crit Value Called By Crit Value Read Back Blood Gas Notified Time Potassium Carbon Dioxide Anion Gap BUN Creatinine Est GFR ( Amer) Est GFR (Non-Af Amer) POC Glucose (mg/dL) 141 H Random Glucose Lactic Acid Calcium Phosphorus Magnesium Total Bilirubin AST ALT Alkaline Phosphatase Total Creatine Kinase CK-MB (Mass) Troponin I Total Protein Albumin Globulin Albumin/Globulin Ratio Arterial Blood Potassium 3.4 L Random Vancomycin Blood Type Blood Type Confirm Antibody Screen 03/08/18 03/08/18 03/08/18 05:59 05:59 05:59 WBC 11.8 H RBC 3.22 L Hgb 10.0 L Hct 29.0 L MCV 90.2 D MCH 31.0 MCHC 34.4 RDW 15.9 H Plt Count 256 MPV 8.2 Neut % (Auto) 84.0 H Lymph % (Auto) 11.6 L [place] % (Auto) 1.4 Eos % (Auto) 2.8 Baso % (Auto) 0.2 Neut # (Auto) 9.9 H Lymph # (Auto) 1.4 [place] # (Auto) 0.2 Eos # (Auto) 0.3 Baso # (Auto) 0.0 APTT Puncture Site pCO2 pO2 HCO3 ABG pH ABG Total CO2 ABG O2 Saturation ABG Base Excess Michele Test ABG Potassium A-a O2 Difference Respiratory Index Sodium 143 Chloride 105 Glucose Lactate Vent Mode Mechanical Rate FiO2 Tidal Volume PEEP Crit Value Called To Crit Value Called By Crit Value Read Back Blood Gas Notified Time Potassium 3.2 L Carbon Dioxide 28 Anion Gap 13 BUN 26 H Creatinine 0.6 L Est GFR ( Amer) > 60 Est GFR (Non-Af Amer) > 60 POC Glucose (mg/dL) Random Glucose 131 H Lactic Acid 3.8 H Calcium 7.1 L Phosphorus 2.3 L Magnesium 1.6 Total Bilirubin 4.7 H AST 154 H D ALT 103 H Alkaline Phosphatase 143 H D Total Creatine Kinase CK-MB (Mass) Troponin I Total Protein 5.1 L Albumin 3.1 L Globulin 2.0 L Albumin/Globulin Ratio 1.5 Arterial Blood Potassium Random Vancomycin Blood Type Blood Type Confirm Antibody Screen 03/08/18 03/08/18 05:59 06:00 WBC RBC Hgb Hct MCV MCH MCHC RDW Plt Count MPV Neut % (Auto) Lymph % (Auto) [place] % (Auto) Eos % (Auto) Baso % (Auto) Neut # (Auto) Lymph # (Auto) [place] # (Auto) Eos # (Auto) Baso # (Auto) APTT 49 H Puncture Site pCO2 pO2 HCO3 ABG pH ABG Total CO2 ABG O2 Saturation ABG Base Excess Michele Test ABG Potassium A-a O2 Difference Respiratory Index Sodium Chloride Glucose Lactate Vent Mode Mechanical Rate FiO2 Tidal Volume PEEP Crit Value Called To Crit Value Called By Crit Value Read Back Blood Gas Notified Time Potassium Carbon Dioxide Anion Gap BUN Creatinine Est GFR ( Amer) Est GFR (Non-Af Amer) POC Glucose (mg/dL) 141 H Random Glucose Lactic Acid Calcium Phosphorus Magnesium Total Bilirubin AST ALT Alkaline Phosphatase Total Creatine Kinase CK-MB (Mass) Troponin I Total Protein Albumin Globulin Albumin/Globulin Ratio Arterial Blood Potassium Random Vancomycin Blood Type Blood Type Confirm Antibody Screen Fingerstick Blood Sugar Results: 141 Critical Care Progress Note - Nutrition Nutrition: Nutrition Category Date Time Status NPO Diet [DIET] Diets 03/06/18 Breakfast Active
[2018-03-08 10:23] LABS: BANDS 24 % (0-2); LYMPHOCYTE 10 % (20-40); METAMYELOCYTE 18 % (0-0); MONOCYTE 4 % (0-10); MYELOCYTE 5 % (0-0); NEUTROPHIL 36 % (50-75); PLATELET ESTIMATE NORMAL (NORMAL); REACTIVE LYMPHOCYTES 3 % (0-0); TOTAL CELLS COUNTED 100
[2018-03-08 10:24] LABS: ANISOCYTOSIS SLIGHT
[2018-03-08 10:25] LABS: LARGE PLATELETS PRESENT; MICROCYTOSIS SLIGHT; OVALOCYTES SLIGHT; SPHEROCYTES SLIGHT
[2018-03-08 10:26] LABS: POLYCHROMIC SLIGHT; TOXIC GRANULATION PRESENT
--- NOTE | 2018-03-08 14:39 | RAD ---
Date of service: 03/08/2018 HISTORY: intubated COMPARISON: No prior. FINDINGS: In situ ETT, tip of which lies approximately 3.4 cm above carson. In situ NGT, the, tip of which has not been included on this film though distal aspect lies well below EG junction left mid abdomen region. LUNGS: Mild pulmonary venous congestive changes improved however there are persistent bilateral atelectatic and or infiltrates with bilateral effusions left larger than right PLEURA: No significant pleural effusion identified, no pneumothorax apparent. CARDIOVASCULAR: Mild aortic atherosclerotic calcification present. Heart size difficult to assess due to silhouetting though appears enlarged. No pulmonary vascular congestion. OSSEOUS STRUCTURES: No significant abnormalities. VISUALIZED UPPER ABDOMEN: Normal. OTHER FINDINGS: None. IMPRESSION: Support lines and tubes as above. Mild pulmonary venous congestive changes improved however there are persistent bilateral atelectatic and or infiltrates with bilateral effusions left larger than right
--- NOTE | 2018-03-08 19:54 | CP.PCM.PN ---
Subjective - Date & Time of Evaluation Date of Evaluation: 03/08/18 Time of Evaluation: 11:15 - Subjective Subjective: clinically same Objective - Vital Signs/Intake and Output Vital Signs (last 24 hours): Temp Pulse Resp BP Pulse Ox 98.5 F 100 H 19 130/49 L 95 03/08/18 16:00 03/08/18 19:16 03/08/18 19:16 03/08/18 19:16 03/08/18 19:16 Intake and Output: 03/08/18 03/09/18 18:59 06:59 Intake Total 1683.5 Output Total 610 Balance 1073.5 - Medications Medications: Current Medications Dextrose (Dextrose 50% Inj) 0 ml IV STAT PRN; Protocol PRN Reason: Hypoglycemia Protocol Dextrose (Glutose 15) 0 gm PO ONCE PRN; Protocol PRN Reason: Hypoglycemia Protocol Glucagon (Glucagen Diagnostic Kit) 0 mg IM STAT PRN; Protocol PRN Reason: Hypoglycemia Protocol Dextrose (Dextrose 5% In Water 1000 Ml) 1,000 mls @ 0 mls/hr IV .Q0M PRN; Protocol PRN Reason: Hypoglycemia Protocol Heparin Sodium/Sodium Chloride (Heparin 93062 Units/250ml 1/2 Normal Saline) 25,000 units in 250 mls @ 9.253 mls/hr IV .Q24H PRN; Protocol PRN Reason: PROTOCOL Last Admin: 03/07/18 17:50 Dose: 6 units/kg/hr, 4.627 mls/hr Fentanyl Citrate 2,500 mcg/ (Sodium Chloride) 250 mls @ 15.42 mls/hr IV . [id number] PRN; Protocol Last Admin: 03/08/18 10:53 Dose: 6 mcg/kg/hr, 46.27 mls/hr Meropenem 1 gm/ Sodium (Chloride) 100 mls @ 100 mls/hr IVPB Q8H [facility]; Protocol Last Admin: 03/08/18 15:16 Dose: 100 mls/hr Aztreonam 1 gm/ Sodium (Chloride) 100 mls @ 200 mls/hr IVPB Q8H [facility]; Protocol Last Admin: 03/08/18 15:15 Dose: 200 mls/hr Vasopressin 40 units/ Sodium (Chloride) 42 mls @ 2.52 mls/hr IV .[id number] [facility]; Protocol Last Admin: 03/08/18 15:15 Dose: 0.02 units/min, 1.26 mls/hr Sodium Bicarbonate 175 meq/ (Dextrose) 1,075 mls @ 100 mls/hr IV .[id number] ARPIT Last Admin: 03/08/18 15:14 Dose: 100 mls/hr Insulin Aspart (Novolog) 0 unit SC Q6H [facility]; Protocol Last Admin: 03/08/18 19:50 Dose: Not Given Pantoprazole Sodium (Protonix Inj) 40 mg IVP Q12H [facility] Last Admin: 03/08/18 10:54 Dose: 40 mg - Labs Labs: 03/08/18 05:59 03/08/18 05:59 PT 16.9 SECONDS (9.7-12.2) H 03/07/18 05:04 INR 1.5 03/07/18 05:04 APTT 49 SECONDS (21-34) H 03/08/18 05:59 - Constitutional Appears: Well - Head Exam Head Exam: ATRAUMATIC, NORMAL INSPECTION, NORMOCEPHALIC - Eye Exam Eye Exam: EOMI, Normal appearance, PERRL Pupil Exam: NORMAL ACCOMODATION, PERRL - ENT Exam ENT Exam: Mucous Membranes Moist, Normal Exam - Neck Exam Neck Exam: Full ROM, Normal Inspection. absent: Lymphadenopathy - Respiratory Exam Respiratory Exam: Decreased Breath Sounds - Cardiovascular Exam Cardiovascular Exam: REGULAR RHYTHM, +S1, +S2 - GI/Abdominal Exam GI & Abdominal Exam: Soft, Diminished Bowel Sounds - Rectal Exam Rectal Exam: Deferred
[2018-03-08] MEDS ORDERED: Propofol 10 mg/ml Inj (100 ml) IV PRN (19:59)
[2018-03-08] MEDS ORDERED: Propofol 10 mg/ml Inj (100 ml) IV SCH (20:00)
[2018-03-08] MEDS: Propofol 10 mg/ml 1,000 MG/100 ML VIAL IV PRN (20:20)
[2018-03-08] MEDS ORDERED: Acetaminophen IV 1,000 MG in Premixed IV 1 EA IV ONE (21:16)
[2018-03-09] MEDS: (Novolog) Insulin Aspart, Recombinant 100 u/ml 10 ml vial SC SCH ×4 (00:58→18:54)
[2018-03-09] MEDS: DEXTROSE 5% IV SCH (01:05)
[2018-03-09] MEDS: WATER IV SCH (01:05)
[2018-03-09] MEDS: SODIUM BICARBONATE IV SCH (01:05)
[2018-03-09] MEDS: Sodium Chloride 0.9% 1,000 ML IV SCH ×3 (02:07→22:01)
[2018-03-09] MEDS: Propofol 10 mg/ml 1,000 MG/100 ML VIAL IV PRN ×2 (04:13→19:36)
[2018-03-09 04:42] LABS: HEMOGLOBIN 9.7 g/dL (11.0-16.0); LYMPH # 1.2 K/uL (1.0-4.3); MEAN CORPUSCULAR HGB CONC 34.3 g/dL (33.0-37.0); NEUT # 5.7 K/uL (1.8-7.0); NRBC % 0.1 % (0.0-2.0)
[2018-03-09 04:50] LABS: INR 1.8; PROTHROMBIN TIME 19.8 SECONDS (9.7-12.2)
[2018-03-09 04:57] LABS: BASO % 0.2 % (0.0-2.0); EOS % 0.7 % (0.0-4.0); LYMPH % 17.2 % (20.0-40.0); MEAN CELL VOLUME 90.7 fL (81.0-99.0); MEAN CORPUSCULAR HEMOGLOBIN 31.1 pg (27.0-31.0); MEAN PLATELET VOLUME 8.5 fL (7.2-11.7); MONO % 0.6 % (0.0-10.0); NEUT % 81.3 % (50.0-75.0); PLATELET COUNT 193 K/uL (130-400); RBC 3.11 Mil/uL (3.80-5.20); RED CELL DISTRIBUTION WIDTH 16.2 % (11.5-14.5)
[2018-03-09 05:07] LABS: ALB/GLOB RATIO 1.3 (1.0-2.1); ALBUMIN 2.6 g/dL (3.5-5.0); ALT/SGPT 98 U/L (9-52); AST/SGOT 98 U/L (14-36); BLOOD UREA NITROGEN 26 mg/dL (7-17); CALCIUM 6.5 mg/dl (8.6-10.4); GFR NON-AFRICAN AMERICAN > 60
[2018-03-09 05:40] LABS: ARTERIAL BLOOD GAS HCO3 29.5 mmol/L (21-28); ARTERIAL BLOOD GAS O2 SAT 98.9 % (95-98); ARTERIAL BLOOD GAS PCO2 30 mm/Hg (35-45); ARTERIAL BLOOD GAS PH 7.57 (7.35-7.45); ARTERIAL BLOOD GAS PO2 83 mm/Hg (80-100); ARTERIAL BLOOD GAS TCO2 28.4 mmol/L (22-28)
[2018-03-09] MEDS: Aztreonam 1 GM in Sodium Chloride 0.9% 100 ML IVPB SCH ×3 (06:19→22:11)
[2018-03-09] MEDS: Meropenem 1 GM in Sodium Chloride 0.9% 100 ML IVPB SCH ×4 (06:20→23:32)
[2018-03-09 06:49] LABS: BANDS 27 % (0-2); LYMPHOCYTE 17 % (20-40); MONOCYTE 7 % (0-10); NEUTROPHIL 46 % (50-75); PLATELET ESTIMATE NORMAL (NORMAL); REACTIVE LYMPHOCYTES 3 % (0-0); TOTAL CELLS COUNTED 100
[2018-03-09 06:50] LABS: LARGE PLATELETS PRESENT
[2018-03-09] MEDS: Acetaminophen IV 1,000 MG in Premixed IV 1 EA IV PRN ×2 (06:59→21:27)
--- NOTE | 2018-03-09 08:07 | CP.CCUPN ---
CCU Subjective - Physician Review Events Since Last Encounter (Free Text): 03/09/18 08:05 Patient is 82-year-old female with a history of biliary ductal carcinoma, status post Whipple's procedure recently underwent in [facility] Patient admitted to the hospital because of abdominal pain, nausea and vomiting. Patient underwent surgical intervention, laparotomy and the adhesionlysis on 03/06/2018. Patient was initially noted to have ischemic bowel. patient had an episode of hypotension. Seen by vehicle sales professional. Patient had a CT angiogram of the abdomen on 03/07/2018 noted to have ischemic small bowel and occluded SMA. And also suspected hepatic infarct, splenic infarct, renal cortical infarct and free intraperitoneal air noted. Patient is currently on ventilator. She is awake and responding. On pain management. Fentanyl drip. on ventilation. On examination: Chest good air entry Abdomen LITTLE drain noted. Post surgical. Edema bilaterally noted. Labs reviewed Renal function is normal Low potassium level noted Chest x-ray showing ET tube in position Bilateral pleural effusion CHF pattern noted. Patient has a severe positive balance of 15 L noted. Patient on vasopressin drip Assessment: Patient is a 82-year-old female with a history of diabetes hypertension and hypothyroidism. Distal biliary duct obstruction, status post Whipple's procedure. 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 Overall prognosis very poor Patient is on antibiotic empirically. On ventilator. Will continue the pain management IV fluid will reduce the vessel process as tolerated. Overall prognosis very poor. Will follow the patient Patient with ischemic bowel, ischemic changes. Overall prognosis very poor CCU Objective - Vital Signs / Intake & Output Vital Signs (Last 4 hours): Vital Signs Pulse Resp BP Pulse Ox 03/09/18 06:31 81 16 118/43 L 95 03/09/18 06:01 82 16 122/48 L 96 03/09/18 06:00 81 16 96 03/09/18 05:33 90 20 127/46 L 97 03/09/18 05:21 102 H 20 132/43 L 96 03/09/18 05:00 88 13 91 L 03/09/18 04:31 79 20 125/47 L 92 L Intake and Output (Last 8hrs): Intake & Output 03/08/18 03/09/18 03/09/18 22:59 06:59 14:59 Intake Total 904.3 1437.4 Output Total 490 580 Balance 414.3 857.4 Intake: IV 113 287 Intake, IV Amount 791.3 1150.4 Distal Port Femoral 31.5 33.6 Distal Port Femoral Y 14.5 96 site Left Antecubital 36.8 36.8 Proximal Port Femoral 308.5 184 Right Hand 400 800 Output: Drainage 430 330 LEFT DUODENOSTOMY 30 30 Right Nare 400 300 Urine 60 250 Urethral (Tran) 60 250 - Medications Active Medications: Active Medications Generic Name Dose Route Start Last Admin Trade Name Freq PRN Reason Stop Dose Admin Dextrose 0 ml 03/06/18 15:02 Dextrose 50% Inj IV STAT PRN Hypoglycemia Protocol Protocol Dextrose 0 gm 03/06/18 15:02 Glutose 15 PO ONCE PRN Hypoglycemia Protocol Protocol Glucagon 0 mg 03/06/18 15:02 Glucagen Diagnostic Kit IM STAT PRN Hypoglycemia Protocol Protocol Dextrose 1,000 mls @ 0 mls/hr 03/06/18 15:02 Dextrose 5% In Water 1000 Ml IV .Q0M PRN Hypoglycemia Protocol Protocol Per Protocol Heparin Sodium/Sodium Chloride 25,000 units in 250 mls @ 9.253 mls/hr 03/06/18 23:55 03/07/18 17:50 Heparin 95674 Units/250ml 1/2 Normal Saline IV 6 units/kg/hr .Q24H PRN 4.627 mls/hr PROTOCOL Administration Protocol 12 UNITS/KG/HR Fentanyl Citrate 2,500 mcg/ 250 mls @ 15.42 mls/hr 03/07/18 02:15 03/09/18 04:12 Sodium Chloride IV 3 mcg/kg/hr .[id number] PRN 23.13 mls/hr Administration Protocol 2 MCG/KG/HR Meropenem 1 gm/ Sodium 100 mls @ 100 mls/hr 03/07/18 07:15 03/09/18 06:20 Chloride IVPB 100 mls/hr Q8H ARPIT Administration Protocol Aztreonam 1 gm/ Sodium 100 mls @ 200 mls/hr 03/07/18 14:00 03/09/18 06:19 Chloride IVPB 200 mls/hr Q8H ARPIT Administration Protocol Vasopressin 40 units/ Sodium 42 mls @ 2.52 mls/hr 03/07/18 12:30 03/09/18 01:17 Chloride IV 0.04 units/min .[id number] ARPIT 2.52 mls/hr Administration Protocol 0.04 UNITS/MIN Propofol 1,000 mg in 100 mls @ 2.4 mls/hr 03/08/18 20:02 03/09/18 04:15 Diprivan IV 30 mcg/kg/min .Q24H PRN 14.4 mls/hr TITRATE PER MD ORDER Titration Protocol 5 MCG/KG/MIN Sodium Chloride 1,000 mls @ 100 mls/hr 03/09/18 01:30 03/09/18 02:07 Sodium Chloride 0.9% IV Not Given .Q10H ARPIT Acetaminophen 1,000 mg/ 100 mls @ 400 mls/hr 03/09/18 06:00 03/09/18 06:59 Miscellaneous IV 03/10/18 06:01 400 mls/hr Q6 PRN Administration Fever >100.4 F Insulin Aspart 0 unit 03/06/18 18:00 03/09/18 06:19 Novolog SC Not Given Q6H ARPIT Protocol Pantoprazole Sodium 40 mg 03/07/18 10:00 03/08/18 21:34 Protonix Inj IVP 40 mg Q12H ARPIT Administration - Patient Studies Lab Studies: Microbiology Studies 03/06/18 13:17 Blood Culture - Preliminary Blood NO GROWTH AFTER 48 HOURS 03/06/18 13:17 Blood Culture - Preliminary Blood NO GROWTH AFTER 48 HOURS 03/07/18 15:47 Gram Stain - Final Trachasp Sputum Culture - Preliminary Gram Negative Galo 03/07/18 09:02 Urine Culture - Final Urine,Catheterized No Growth (<1,000 CFU/ML) Lab Studies 03/09/18 03/09/18 03/09/18 Range/Units 05:28 04:37 04:37 WBC (4.8-10.8) K/uL RBC (3.80-5.20) Mil/uL Hgb (11.0-16.0) g/dL Hct (34.0-47.0) % MCV (81.0-99.0) fL MCH (27.0-31.0) pg MCHC (33.0-37.0) g/dL RDW (11.5-14.5) % Plt Count (130-400) K/uL MPV (7.2-11.7) fL Neut % (Auto) (50.0-75.0) % Lymph % (Auto) (20.0-40.0) % [place] % (Auto) (0.0-10.0) % Eos % (Auto) (0.0-4.0) % Baso % (Auto) (0.0-2.0) % Neut # (Auto) (1.8-7.0) K/uL Lymph # (Auto) (1.0-4.3) K/uL [place] # (Auto) (0.0-0.8) K/uL Eos # (Auto) (0.0-0.7) K/uL Baso # (Auto) (0.0-0.2) K/uL Neutrophils % (Manual) (50-75) % Band Neutrophils % (0-2) % Lymphocytes % (Manual) (20-40) % Reactive Lymphs % (0-0) % Monocytes % (Manual) (0-10) % Metamyelocytes % (0-0) % Myelocytes % (0-0) % Toxic Granulation Platelet Estimate (NORMAL) Large Platelets Polychromasia Anisocytosis (manual) Microcytosis (manual) Macrocytosis (manual) Spherocytes Ovalocytes PT 19.8 H (9.7-12.2) SECONDS INR 1.8 APTT 51 H (21-34) SECONDS Puncture Site A-line pCO2 30 L (35-45) mm/Hg pO2 83 (80-100) mm/Hg HCO3 29.5 H (21-28) mmol/L ABG pH 7.57 H (7.35-7.45) ABG Total CO2 28.4 H (22-28) mmol/L ABG O2 Saturation 98.9 H (95-98) % ABG Base Excess 5.9 H (-2.0-3.0) mmol/L Michele Test Na ABG Potassium 2.2 L* (3.6-5.2) mmol/L A-a O2 Difference 307.0 mm/Hg Respiratory Index 3.7 Glucose 181 H (65-105) mg/dl Lactate 5.3 H* (0.7-2.1) mmol/L Vent Mode Prvc Mechanical Rate 20 FiO2 60.0 % Tidal Volume 450 PEEP 5 Crit Value Called To Anais agricultural pilot Crit Value Called By Tracey cochran rt Crit Value Read Back Y Blood Gas Notified Time 540 Sodium 146.0 143 (132-148) mmol/L Potassium 2.3 L* D (3.6-5.2) mmol/L Chloride 110.0 H 102 (98-107) mmol/L Carbon Dioxide 28 (22-30) mmol/L Anion Gap 15 (10-20) BUN 26 H (7-17) mg/dL Creatinine 0.6 L (0.7-1.2) mg/dL Est GFR ( Amer) > 60 Est GFR (Non-Af Amer) > 60 Random Glucose 176 H (65-105) mg/dL Calcium 6.5 L (8.6-10.4) mg/dl Phosphorus 1.9 L (2.5-4.5) mg/dL Magnesium 1.7 (1.6-2.3) mg/dL Total Bilirubin 5.8 H (0.2-1.3) mg/dL AST 98 H D (14-36) U/L ALT 98 H (9-52) U/L Alkaline Phosphatase 94 (38-126) U/L Total Protein 4.7 L (6.3-8.3) g/dL Albumin 2.6 L (3.5-5.0) g/dL Globulin 2.0 L (2.2-3.9) gm/dL Albumin/Globulin Ratio 1.3 (1.0-2.1) Arterial Blood Potassium 2.2 L* (3.6-5.2) mmol/L 03/09/18 03/08/18 Range/Units 04:37 05:59 WBC 7.0 (4.8-10.8) K/uL RBC 3.11 L (3.80-5.20) Mil/uL Hgb 9.7 L (11.0-16.0) g/dL Hct 28.2 L (34.0-47.0) % MCV 90.7 (81.0-99.0) fL MCH 31.1 H (27.0-31.0) pg MCHC 34.3 (33.0-37.0) g/dL RDW 16.2 H (11.5-14.5) % Plt Count 193 (130-400) K/uL MPV 8.5 (7.2-11.7) fL Neut % (Auto) 81.3 H (50.0-75.0) % Lymph % (Auto) 17.2 L (20.0-40.0) % [place] % (Auto) 0.6 (0.0-10.0) % Eos % (Auto) 0.7 (0.0-4.0) % Baso % (Auto) 0.2 (0.0-2.0) % Neut # (Auto) 5.7 (1.8-7.0) K/uL Lymph # (Auto) 1.2 (1.0-4.3) K/uL [place] # (Auto) 0.0 (0.0-0.8) K/uL Eos # (Auto) 0.0 (0.0-0.7) K/uL Baso # (Auto) 0.0 (0.0-0.2) K/uL Neutrophils % (Manual) 46 L 36 L (50-75) % Band Neutrophils % 27 H* 24 H* (0-2) % Lymphocytes % (Manual) 17 L 10 L (20-40) % Reactive Lymphs % 3 H 3 H (0-0) % Monocytes % (Manual) 7 4 (0-10) % Metamyelocytes % 18 H (0-0) % Myelocytes % 5 H (0-0) % Toxic Granulation Present Platelet Estimate Normal Normal (NORMAL) Large Platelets Present Present Polychromasia Slight Anisocytosis (manual) Slight Microcytosis (manual) Slight Macrocytosis (manual) Slight Spherocytes Slight Ovalocytes Slight PT (9.7-12.2) SECONDS INR APTT (21-34) SECONDS Puncture Site pCO2 (35-45) mm/Hg pO2 (80-100) mm/Hg HCO3 (21-28) mmol/L ABG pH (7.35-7.45) ABG Total CO2 (22-28) mmol/L ABG O2 Saturation (95-98) % ABG Base Excess (-2.0-3.0) mmol/L Michele Test ABG Potassium (3.6-5.2) mmol/L A-a O2 Difference mm/Hg Respiratory Index Glucose (65-105) mg/dl Lactate (0.7-2.1) mmol/L Vent Mode Mechanical Rate FiO2 % Tidal Volume PEEP Crit Value Called To Crit Value Called By Crit Value Read Back Blood Gas Notified Time Sodium (132-148) mmol/L Potassium (3.6-5.2) mmol/L Chloride (98-107) mmol/L Carbon Dioxide (22-30) mmol/L Anion Gap (10-20) BUN (7-17) mg/dL Creatinine (0.7-1.2) mg/dL Est GFR ( Amer) Est GFR (Non-Af Amer) Random Glucose (65-105) mg/dL Calcium (8.6-10.4) mg/dl Phosphorus (2.5-4.5) mg/dL Magnesium (1.6-2.3) mg/dL Total Bilirubin (0.2-1.3) mg/dL AST (14-36) U/L ALT (9-52) U/L Alkaline Phosphatase (38-126) U/L Total Protein (6.3-8.3) g/dL Albumin (3.5-5.0) g/dL Globulin (2.2-3.9) gm/dL Albumin/Globulin Ratio (1.0-2.1) Arterial Blood Potassium (3.6-5.2) mmol/L Laboratory Results - last 24 hr 03/08/18 03/09/18 03/09/18 05:59 04:37 04:37 WBC 7.0 RBC 3.11 L Hgb 9.7 L Hct 28.2 L MCV 90.7 MCH 31.1 H MCHC 34.3 RDW 16.2 H Plt Count 193 MPV 8.5 Neut % (Auto) 81.3 H Lymph % (Auto) 17.2 L [place] % (Auto) 0.6 Eos % (Auto) 0.7 Baso % (Auto) 0.2 Neut # (Auto) 5.7 Lymph # (Auto) 1.2 [place] # (Auto) 0.0 Eos # (Auto) 0.0 Baso # (Auto) 0.0 Neutrophils % (Manual) 36 L 46 L Band Neutrophils % 24 H* 27 H* Lymphocytes % (Manual) 10 L 17 L Reactive Lymphs % 3 H 3 H Monocytes % (Manual) 4 7 Metamyelocytes % 18 H Myelocytes % 5 H Toxic Granulation Present Platelet Estimate Normal Normal Large Platelets Present Present Polychromasia Slight Anisocytosis (manual) Slight Microcytosis (manual) Slight Macrocytosis (manual) Slight Spherocytes Slight Ovalocytes Slight PT 19.8 H INR 1.8 APTT 51 H Puncture Site pCO2 pO2 HCO3 ABG pH ABG Total CO2 ABG O2 Saturation ABG Base Excess Michele Test ABG Potassium A-a O2 Difference Respiratory Index Glucose Lactate Vent Mode Mechanical Rate FiO2 Tidal Volume PEEP Crit Value Called To Crit Value Called By Crit Value Read Back Blood Gas Notified Time Sodium Potassium Chloride Carbon Dioxide Anion Gap BUN Creatinine Est GFR ( Amer) Est GFR (Non-Af Amer) Random Glucose Calcium Phosphorus Magnesium Total Bilirubin AST ALT Alkaline Phosphatase Total Protein Albumin Globulin Albumin/Globulin Ratio Arterial Blood Potassium 03/09/18 03/09/18 04:37 05:28 WBC RBC Hgb Hct MCV MCH MCHC RDW Plt Count MPV Neut % (Auto) Lymph % (Auto) [place] % (Auto) Eos % (Auto) Baso % (Auto) Neut # (Auto) Lymph # (Auto) [place] # (Auto) Eos # (Auto) Baso # (Auto) Neutrophils % (Manual) Band Neutrophils % Lymphocytes % (Manual) Reactive Lymphs % Monocytes % (Manual) Metamyelocytes % Myelocytes % Toxic Granulation Platelet Estimate Large Platelets Polychromasia Anisocytosis (manual) Microcytosis (manual) Macrocytosis (manual) Spherocytes Ovalocytes PT INR APTT Puncture Site A-line pCO2 30 L pO2 83 HCO3 29.5 H ABG pH 7.57 H ABG Total CO2 28.4 H ABG O2 Saturation 98.9 H ABG Base Excess 5.9 H Michele Test Na ABG Potassium 2.2 L* A-a O2 Difference 307.0 Respiratory Index 3.7 Glucose 181 H Lactate 5.3 H* Vent Mode Prvc Mechanical Rate 20 FiO2 60.0 Tidal Volume 450 PEEP 5 Crit Value Called To [facility] agricultural pilot Crit Value Called By Tracey cochran rt Crit Value Read Back Y Blood Gas Notified Time 540 Sodium 143 146.0 Potassium 2.3 L* D Chloride 102 110.0 H Carbon Dioxide 28 Anion Gap 15 BUN 26 H Creatinine 0.6 L Est GFR ( Amer) > 60 Est GFR (Non-Af Amer) > 60 Random Glucose 176 H Calcium 6.5 L Phosphorus 1.9 L Magnesium 1.7 Total Bilirubin 5.8 H AST 98 H D ALT 98 H Alkaline Phosphatase 94 Total Protein 4.7 L Albumin 2.6 L Globulin 2.0 L Albumin/Globulin Ratio 1.3 Arterial Blood Potassium 2.2 L* Fingerstick Blood Sugar Results: 141 Critical Care Progress Note - Nutrition Nutrition: Nutrition Category Date Time Status NPO Diet [DIET] Diets 03/06/18 Breakfast Active
[2018-03-09] MEDS ORDERED: Potassium Phosphate 15 MMOLE in Sodium Chloride 0.9% 250 ML IVPB ONE (08:30)
--- NOTE | 2018-03-09 09:10 | CP.PCM.PN ---
Subjective - Date & Time of Evaluation Date of Evaluation: 03/09/18 Time of Evaluation: 09:03 - Subjective Subjective: Surgery: Dr. Freitas Pt seen and examined. No acute overnight events. Pt remains intubated/sedated in the ICU. She had been weaned off all pressors, however yesterday placed back on physiologic dose Vaso due to episodes of hypotension on a-line readings. This morning pt with SBP in the 110-119 range with MAPS above 60. Decrease in UOP overnight to 15cc/hr, however due to her fluid overloaded state, IVF were not increased. Pt less acidotic however, remains in critical condition. Tmax 102 overnight. Objective - Vital Signs/Intake and Output Vital Signs (last 24 hours): Temp Pulse Resp BP Pulse Ox 102.1 F H 81 16 118/43 L 95 03/09/18 04:00 03/09/18 06:31 03/09/18 06:31 03/09/18 06:31 03/09/18 06:31 Intake and Output: 03/09/18 03/09/18 06:59 18:59 Intake Total 2115.4 Output Total 580 Balance 1535.4 - Medications Medications: Current Medications Dextrose (Dextrose 50% Inj) 0 ml IV STAT PRN; Protocol PRN Reason: Hypoglycemia Protocol Dextrose (Glutose 15) 0 gm PO ONCE PRN; Protocol PRN Reason: Hypoglycemia Protocol Glucagon (Glucagen Diagnostic Kit) 0 mg IM STAT PRN; Protocol PRN Reason: Hypoglycemia Protocol Dextrose (Dextrose 5% In Water 1000 Ml) 1,000 mls @ 0 mls/hr IV .Q0M PRN; Protocol PRN Reason: Hypoglycemia Protocol Heparin Sodium/Sodium Chloride (Heparin 28097 Units/250ml 1/2 Normal Saline) 25,000 units in 250 mls @ 9.253 mls/hr IV .Q24H PRN; Protocol PRN Reason: PROTOCOL Last Admin: 03/07/18 17:50 Dose: 6 units/kg/hr, 4.627 mls/hr Fentanyl Citrate 2,500 mcg/ (Sodium Chloride) 250 mls @ 15.42 mls/hr IV .[id number] PRN; Protocol Last Admin: 03/09/18 04:12 Dose: 3 mcg/kg/hr, 23.13 mls/hr Meropenem 1 gm/ Sodium (Chloride) 100 mls @ 100 mls/hr IVPB Q8H [facility]; Protocol Last Admin: 03/09/18 06:20 Dose: 100 mls/hr Aztreonam 1 gm/ Sodium (Chloride) 100 mls @ 200 mls/hr IVPB Q8H [facility]; Protocol Last Admin: 03/09/18 06:19 Dose: 200 mls/hr Vasopressin 40 units/ Sodium (Chloride) 42 mls @ 2.52 mls/hr IV .[id number] ARPIT; Protocol Last Admin: 03/09/18 01:17 Dose: 0.04 units/min, 2.52 mls/hr Propofol (Diprivan) 1,000 mg in 100 mls @ 2.4 mls/hr IV .Q24H PRN; Protocol PRN Reason: TITRATE PER MD ORDER Last Titration: 03/09/18 04:15 Dose: 30 mcg/kg/min, 14.4 mls/hr Sodium Chloride (Sodium Chloride 0.9%) 1,000 mls @ 100 mls/hr IV .Q10H [facility] Last Admin: 03/09/18 02:07 Dose: Not Given Acetaminophen 1,000 mg/ (Miscellaneous) 100 mls @ 400 mls/hr IV Q6 PRN PRN Reason: Fever >100.4 F Stop: 03/10/18 06:01 Last Admin: 03/09/18 06:59 Dose: 400 mls/hr Potassium Chloride (Potassium Chloride 10 Meq/100 Ml) 10 meq in 100 mls @ 100 mls/hr IVPB ONCE ONE Stop: 03/09/18 09:06 Last Admin: 03/09/18 08:36 Dose: 100 mls/hr Potassium Phosphate 15 mmole/ (Sodium Chloride) 255 mls @ 42.5 mls/hr IVPB ONCE ONE Stop: 03/09/18 14:29 Insulin Aspart (Novolog) 0 unit SC Q6H ARPIT; Protocol Last Admin: 03/09/18 06:19 Dose: Not Given Pantoprazole Sodium (Protonix Inj) 40 mg IVP Q12H [facility] Last Admin: 03/08/18 21:34 Dose: 40 mg - Labs Labs: 03/09/18 04:37 03/09/18 04:37 PT 19.8 SECONDS (9.7-12.2) H 11/11/18 04:37 INR 1.8 03/09/18 04:37 APTT 51 SECONDS (21-34) H 03/09/18 04:37 - Constitutional Appears: No Acute Distress - Eye Exam Eye Exam: Normal appearance - ENT Exam Additional comments: ETT & NGT in place - Respiratory Exam Respiratory Exam: Decreased Breath Sounds (b/l lung bases ) - Cardiovascular Exam Cardiovascular Exam: RRR - GI/Abdominal Exam GI & Abdominal Exam: Distended, Soft Additional comments: midline incision with leyda, clean/dry, jejunostomy in place LLQ - Skin Skin Exam: Dry, Warm Assessment and Plan - Assessment and Plan (Free Text) Assessment: 82F with mesenteric ischemia s/p Ex-Lap; POD#3 Plan: - cont conservative management - wean off pressors as tolerated - cont IV ABX - cont IV Hep - monitor UOP with goal of 30cc/hr - consider lasix to help with diuresis - d/w Dr. Fortino Kate
--- NOTE | 2018-03-09 14:01 | RAD ---
Date of service: 03/09/2018 HISTORY: intubated COMPARISON: Chest dated 03/08/2018 FINDINGS: In situ ETT, tip of which lies approximately 5 point 2 cm above carson. NGT is present, the tip of which has not been included on this film though distal aspect does lie well below EG junction and in the left mid abdomen region. LUNGS: Persistent but slightly improved pulmonary vascular congestive changes. Bilateral atelectatic and or infiltrate with bilateral effusions left greater than right PLEURA: No significant pleural effusion identified, no pneumothorax apparent. CARDIOVASCULAR: Mild aortic atherosclerotic calcification present. Heart size appears mildly enlarged. OSSEOUS STRUCTURES: No significant abnormalities. VISUALIZED UPPER ABDOMEN: Normal. OTHER FINDINGS: None. ETT and NGT as described. IMPRESSION: ETT and NGT as above. Persistent but slightly improved pulmonary vascular congestive changes. Bilateral atelectatic and or infiltrate with bilateral effusions left greater than right
--- NOTE | 2018-03-09 14:23 | CP.PCM.PN ---
Subjective - Date & Time of Evaluation Date of Evaluation: 03/09/18 Time of Evaluation: 12:00 - Subjective Subjective: clinically same Objective - Vital Signs/Intake and Output Vital Signs (last 24 hours): Temp Pulse Resp BP Pulse Ox 101.2 F H 81 16 106/44 L 96 03/09/18 08:00 03/09/18 11:01 03/09/18 11:01 03/09/18 11:01 03/09/18 11:01 Intake and Output: 03/09/18 03/09/18 06:59 18:59 Intake Total 2115.4 725.2 Output Total 580 2900 Balance 1535.4 -2174.8 - Medications Medications: Current Medications Dextrose (Dextrose 50% Inj) 0 ml IV STAT PRN; Protocol PRN Reason: Hypoglycemia Protocol Dextrose (Glutose 15) 0 gm PO ONCE PRN; Protocol PRN Reason: Hypoglycemia Protocol Glucagon (Glucagen Diagnostic Kit) 0 mg IM STAT PRN; Protocol PRN Reason: Hypoglycemia Protocol Dextrose (Dextrose 5% In Water 1000 Ml) 1,000 mls @ 0 mls/hr IV .Q0M PRN; Protocol PRN Reason: Hypoglycemia Protocol Heparin Sodium/Sodium Chloride (Heparin 55586 Units/250ml 1/2 Normal Saline) 25,000 units in 250 mls @ 9.253 mls/hr IV .Q24H PRN; Protocol PRN Reason: PROTOCOL Last Admin: 03/07/18 17:50 Dose: 6 units/kg/hr, 4.627 mls/hr Fentanyl Citrate 2,500 mcg/ (Sodium Chloride) 250 mls @ 15.42 mls/hr IV .[id number] PRN; Protocol Last Admin: 03/09/18 04:12 Dose: 3 mcg/kg/hr, 23.13 mls/hr Meropenem 1 gm/ Sodium (Chloride) 100 mls @ 100 mls/hr IVPB Q8H [facility]; Protocol Last Admin: 03/09/18 06:20 Dose: 100 mls/hr Aztreonam 1 gm/ Sodium (Chloride) 100 mls @ 200 mls/hr IVPB Q8H [facility]; Protocol Last Admin: 03/09/18 06:19 Dose: 200 mls/hr Vasopressin 40 units/ Sodium (Chloride) 42 mls @ 2.52 mls/hr IV .[id number] [facility]; Protocol Last Titration: 03/09/18 09:36 Dose: 0.02 units/min, 1.26 mls/hr Propofol (Diprivan) 1,000 mg in 100 mls @ 2.4 mls/hr IV .Q24H PRN; Protocol PRN Reason: TITRATE PER MD ORDER Last Titration: 03/09/18 04:15 Dose: 30 mcg/kg/min, 14.4 mls/hr Sodium Chloride (Sodium Chloride 0.9%) 1,000 mls @ 100 mls/hr IV .Q10H [facility] Last Admin: 03/09/18 02:07 Dose: Not Given Acetaminophen 1,000 mg/ (Miscellaneous) 100 mls @ 400 mls/hr IV Q6 PRN PRN Reason: Fever >100.4 F Stop: 03/10/18 06:01 Last Admin: 03/09/18 06:59 Dose: 400 mls/hr Potassium Phosphate 15 mmole/ (Sodium Chloride) 255 mls @ 42.5 mls/hr IVPB ONCE ONE Stop: 03/09/18 14:29 Last Admin: 03/09/18 09:14 Dose: 42.5 mls/hr Insulin Aspart (Novolog) 0 unit SC Q6H [facility]; Protocol Last Admin: 03/09/18 06:19 Dose: Not Given Pantoprazole Sodium (Protonix Inj) 40 mg IVP Q12H [facility] Last Admin: 03/09/18 09:25 Dose: 40 mg - Labs Labs: 03/09/18 04:37 03/09/18 04:37 PT 19.8 SECONDS (9.7-12.2) H 03/09/18 04:37 INR 1.8 03/09/18 04:37 APTT 51 SECONDS (21-34) H 03/09/18 04:37 - Constitutional Appears: Well - Head Exam Head Exam: ATRAUMATIC, NORMAL INSPECTION, NORMOCEPHALIC - Eye Exam Eye Exam: EOMI, Normal appearance, PERRL Pupil Exam: NORMAL ACCOMODATION, PERRL - ENT Exam ENT Exam: Mucous Membranes Moist, Normal Exam - Neck Exam Neck Exam: Full ROM, Normal Inspection. absent: Lymphadenopathy - Respiratory Exam Respiratory Exam: Decreased Breath Sounds - Cardiovascular Exam Cardiovascular Exam: REGULAR RHYTHM, +S1, +S2 - GI/Abdominal Exam GI & Abdominal Exam: Soft, Diminished Bowel Sounds - Rectal Exam Rectal Exam: Deferred
--- NOTE | 2018-03-09 16:52 | CP.PCM.PN ---
Subjective - Date & Time of Evaluation Date of Evaluation: 03/08/18 Time of Evaluation: 13:00 - Subjective Subjective: Vented Objective - Vital Signs/Intake and Output Vital Signs (last 24 hours): Temp Pulse Resp BP Pulse Ox 101.2 F H 81 16 106/44 L 96 03/09/18 08:00 03/09/18 11:01 03/09/18 11:01 03/09/18 11:01 03/09/18 11:01 Intake and Output: 03/09/18 03/09/18 06:59 18:59 Intake Total 2115.4 725.2 Output Total 580 2900 Balance 1535.4 -2174.8 - Medications Medications: Current Medications Dextrose (Dextrose 50% Inj) 0 ml IV STAT PRN; Protocol PRN Reason: Hypoglycemia Protocol Dextrose (Glutose 15) 0 gm PO ONCE PRN; Protocol PRN Reason: Hypoglycemia Protocol Glucagon (Glucagen Diagnostic Kit) 0 mg IM STAT PRN; Protocol PRN Reason: Hypoglycemia Protocol Dextrose (Dextrose 5% In Water 1000 Ml) 1,000 mls @ 0 mls/hr IV .Q0M PRN; Protocol PRN Reason: Hypoglycemia Protocol Heparin Sodium/Sodium Chloride (Heparin 84846 Units/250ml 1/2 Normal Saline) 25,000 units in 250 mls @ 9.253 mls/hr IV .Q24H PRN; Protocol PRN Reason: PROTOCOL Last Admin: 03/07/18 17:50 Dose: 6 units/kg/hr, 4.627 mls/hr Fentanyl Citrate 2,500 mcg/ (Sodium Chloride) 250 mls @ 15.42 mls/hr IV .[id number] PRN; Protocol Last Admin: 03/09/18 04:12 Dose: 3 mcg/kg/hr, 23.13 mls/hr Meropenem 1 gm/ Sodium (Chloride) 100 mls @ 100 mls/hr IVPB Q8H [facility]; Protocol Last Admin: 03/09/18 14:54 Dose: 100 mls/hr Aztreonam 1 gm/ Sodium (Chloride) 100 mls @ 200 mls/hr IVPB Q8H [facility]; Protocol Last Admin: 03/09/18 14:54 Dose: 200 mls/hr Vasopressin 40 units/ Sodium (Chloride) 42 mls @ 2.52 mls/hr IV .[id number] [facility]; Protocol Last Admin: 03/09/18 14:54 Dose: Not Given Propofol (Diprivan) 1,000 mg in 100 mls @ 2.4 mls/hr IV .Q24H PRN; Protocol PRN Reason: TITRATE PER MD ORDER Last Titration: 03/09/18 04:15 Dose: 30 mcg/kg/min, 14.4 mls/hr Sodium Chloride (Sodium Chloride 0.9%) 1,000 mls @ 100 mls/hr IV .Q10H [facility] Last Admin: 03/09/18 14:00 Dose: 100 mls/hr Acetaminophen 1,000 mg/ (Miscellaneous) 100 mls @ 400 mls/hr IV Q6 PRN PRN Reason: Fever >100.4 F Stop: 03/10/18 06:01 Last Admin: 03/09/18 06:59 Dose: 400 mls/hr Insulin Aspart (Novolog) 0 unit SC Q6H [facility]; Protocol Last Admin: 03/09/18 14:54 Dose: Not Given Pantoprazole Sodium (Protonix Inj) 40 mg IVP Q12H [facility] Last Admin: 03/09/18 09:25 Dose: 40 mg - Labs Labs: 03/09/18 04:37 03/09/18 04:37 PT 19.8 SECONDS (9.7-12.2) H 03/09/18 04:37 INR 1.8 03/09/18 04:37 APTT 51 SECONDS (21-34) H 03/09/18 04:37 - Head Exam Head Exam: ATRAUMATIC - Eye Exam Eye Exam: Normal appearance - ENT Exam ENT Exam: Mucous Membranes Dry - Respiratory Exam Respiratory Exam: NORMAL BREATHING PATTERN - Cardiovascular Exam Cardiovascular Exam: +S1, +S2 - GI/Abdominal Exam GI & Abdominal Exam: Normal Bowel Sounds Assessment and Plan (1) Leukocytosis Assessment & Plan: on antibiotics Status: Acute (2) Anemia Assessment & Plan: chronic disease Status: Acute (3) Coagulopathy Assessment & Plan: on heparin drip likely nutritional component plt count down trending, will add fibrinogen to rule out evolving DIC Status: Acute (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
--- NOTE | 2018-03-09 17:02 | CP.PCM.PN ---
Subjective - Date & Time of Evaluation Date of Evaluation: 03/09/18 Time of Evaluation: 16:00 - Subjective Subjective: Vented Objective - Vital Signs/Intake and Output Vital Signs (last 24 hours): Temp Pulse Resp BP Pulse Ox 101.2 F H 81 16 106/44 L 96 03/09/18 08:00 03/09/18 11:01 03/09/18 11:01 03/09/18 11:01 03/09/18 11:01 Intake and Output: 03/09/18 03/09/18 06:59 18:59 Intake Total 2115.4 725.2 Output Total 580 2900 Balance 1535.4 -2174.8 - Medications Medications: Current Medications Dextrose (Dextrose 50% Inj) 0 ml IV STAT PRN; Protocol PRN Reason: Hypoglycemia Protocol Dextrose (Glutose 15) 0 gm PO ONCE PRN; Protocol PRN Reason: Hypoglycemia Protocol Glucagon (Glucagen Diagnostic Kit) 0 mg IM STAT PRN; Protocol PRN Reason: Hypoglycemia Protocol Dextrose (Dextrose 5% In Water 1000 Ml) 1,000 mls @ 0 mls/hr IV .Q0M PRN; Protocol PRN Reason: Hypoglycemia Protocol Heparin Sodium/Sodium Chloride (Heparin 19485 Units/250ml 1/2 Normal Saline) 25,000 units in 250 mls @ 9.253 mls/hr IV .Q24H PRN; Protocol PRN Reason: PROTOCOL Last Admin: 03/07/18 17:50 Dose: 6 units/kg/hr, 4.627 mls/hr Fentanyl Citrate 2,500 mcg/ (Sodium Chloride) 250 mls @ 15.42 mls/hr IV .[id number] PRN; Protocol Last Admin: 03/09/18 04:12 Dose: 3 mcg/kg/hr, 23.13 mls/hr Meropenem 1 gm/ Sodium (Chloride) 100 mls @ 100 mls/hr IVPB Q8H [facility]; Protocol Last Admin: 03/09/18 14:54 Dose: 100 mls/hr Aztreonam 1 gm/ Sodium (Chloride) 100 mls @ 200 mls/hr IVPB Q8H [facility]; Protocol Last Admin: 03/09/18 14:54 Dose: 200 mls/hr Vasopressin 40 units/ Sodium (Chloride) 42 mls @ 2.52 mls/hr IV .[id number] [facility]; Protocol Last Admin: 03/09/18 14:54 Dose: Not Given Propofol (Diprivan) 1,000 mg in 100 mls @ 2.4 mls/hr IV .Q24H PRN; Protocol PRN Reason: TITRATE PER MD ORDER Last Titration: 03/09/18 04:15 Dose: 30 mcg/kg/min, 14.4 mls/hr Sodium Chloride (Sodium Chloride 0.9%) 1,000 mls @ 100 mls/hr IV .Q10H [facility] Last Admin: 03/09/18 14:00 Dose: 100 mls/hr Acetaminophen 1,000 mg/ (Miscellaneous) 100 mls @ 400 mls/hr IV Q6 PRN PRN Reason: Fever >100.4 F Stop: 03/10/18 06:01 Last Admin: 03/09/18 06:59 Dose: 400 mls/hr Insulin Aspart (Novolog) 0 unit SC Q6H [facility]; Protocol Last Admin: 03/09/18 14:54 Dose: Not Given Pantoprazole Sodium (Protonix Inj) 40 mg IVP Q12H [facility] Last Admin: 03/09/18 09:25 Dose: 40 mg - Labs Labs: 03/09/18 04:37 03/09/18 04:37 PT 19.8 SECONDS (9.7-12.2) H 03/09/18 04:37 INR 1.8 03/09/18 04:37 APTT 51 SECONDS (21-34) H 03/09/18 04:37 - Head Exam Head Exam: ATRAUMATIC - Eye Exam Eye Exam: Normal appearance - ENT Exam ENT Exam: Mucous Membranes Dry - Respiratory Exam Respiratory Exam: NORMAL BREATHING PATTERN - Cardiovascular Exam Cardiovascular Exam: +S1, +S2 - GI/Abdominal Exam GI & Abdominal Exam: Normal Bowel Sounds Assessment and Plan (1) Leukocytosis Assessment & Plan: on antibiotics Status: Acute (2) Anemia Assessment & Plan: likely chronic disease f/u retic count, b12, folate, ferritin to further characterize Status: Acute (3) Coagulopathy Assessment & Plan: heparin likely nutritional component plt count down trending, will add fibrinogen to rule out evolving DIC Status: Acute (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
--- NOTE | 2018-03-09 18:28 | CP.PCM.CON ---
History of Present Illness - History of Present Illness History of Present Illness: 82-year-old female with a history of biliary ductal carcinoma, status post Whipple's procedure at [facility], was admitted to the [facility] because of abdominal pain, nausea and vomiting. Patient had a CT angiogram of the abdomen on 03/07/2018 noted to have ischemic small bowel and occluded SMA. And also suspected hepatic infarct, splenic infarct, renal cortical infarct and free intraperitoneal air noted. Went to OR on 03/06/2018 for laparotomy and lyssis of adhesions Patient is currently on ventilator . She is awake and responding on pressors Review of Systems - Review of Systems Systems not reviewed;Unavailable: Intubated - Constitutional Constitutional: As Per HPI - EENT Eyes: absent: As Per HPI, Blind Spots, Blurred Vision, Change in Vision, Decreased Night Vision, Diplopia, Discharge, Dry Eye, Exophthalmos, Floaters, Irritation, Itchy Eyes, Loss of Peripheral Vision, Pain, Photophobia, Requires Corrective Lenses, Sees Flashes, Spots in Vision, Tunnel Vision, Other Visual Disturbances, Loss of Vision, Other Ears: absent: As Per HPI, Decreased Hearing, Ear Discharge, Ear Pain, Tinnitus, Abnormal Hearing, Disequilibrium, Dizziness, Other Nose/Mouth/Throat: absent: As Per HPI, Epistaxis, Nasal Congestion, Nasal D ischarge, Nasal Obstruction, Nasal Trauma, Nose Pain, Post Nasal Drip, Sinus Pain, Sinus Pressure, Bleeding Gums, Change in Voice, Dental Pain, Dry Mouth, Dysphagia, Halitosis, Hoarsness, Lip Swelling, Mouth Lesions, Mouth Pain, Odynophagia, Sore Throat, Throat Swelling, Tongue Swelling, Facial Pain, Neck Pain, Neck Mass, Other - Breasts Breasts: absent: As Per HPI, Change in Shape, Mass, Pain, Nipple Discharge, Nipple Inversion, Skin Changes, Swelling, Other - Cardiovascular Cardiovascular: absent: As Per HPI, Acrocyanosis, Chest Pain, Chest Pain at Rest, Chest Pain with Activity, Claudication, Diaphoresis, Dyspnea, Dyspnea on Exertion, Edema, Irregular Heart Rhythm, Pain Radiating to Arm/Neck/Jaw, Leg Edema, Leg Ulcers, Lightheadedness, Orthopnea, Palpitations, Paroxysmal Nocturnal Dyspnea, Pedal Edema, Radiating Pain, Rapid Heart Rate, Slow Heart Rate, Syncope, Other - Respiratory Respiratory: As Per HPI - Gastrointestinal Gastrointestinal: As Per HPI - Genitourinary Genitourinary: absent: As Per HPI, Change in Urinary Stream, Difficulty Urinating, Dysuria, Flank Pain, Hematuria, Pyuria, Nocturia, Urinary Incontinence, Urinary Frequency, Urinary Hesitance, Urinary Urgency, Voiding Fr eq/Small Amts, Freq UTI, Hx Renal/Bladder Calculi, Hx /Renal Surgery, Bladder Distension, Other - Reproductive: Female Reproductive:Female: absent: As Per HPI, Amenorrhea, Amenorrhea/ Control, Currently Menstual, Cycle <21 Days, Cycle >35 Days, Cycle Variable, Menses 1-7 Days, Menses >/= 8 Days, Menses Variable, Cycle > 4 Weeks Between, No Menses for 6 Months, Heavy Menses, Light Menses, Normal Menses, Spotting Between Cycles, S/P Hysterectomy, Menopausal, Post Menopausal, Premenarche, Abnormal Vaginal Bleeding, Dysmenorrhea, Dyspareunia, Genital Lesions, Genital Pruritis, Pelvic Pain, Prolapse Symptoms, Sexual Dysfunction, Vaginal Discharge, Vaginal Dryness, Vaginal Odor, Vaginal Pruritis, Other - Menstruation Menstruation: absent: As Per HPI, Amenorrhea, Amenorrhea/ Control, Currently Menstual, Cycle <21 Days, Cycle >35 Days, Cycle Variable, Menses 1-7 Days, Menses >/= 8 Days, Menses Variable, Cycle > 4 Weeks Between, No Menses for 6 Months, Heavy Menses, Light Menses, Normal Menses, Spotting Between Cycles, S/P Hysterectomy, Menopausal, Post Menopausal, Premenarche, Abnormal Vaginal Bleeding, Dysmenorrhea, Other - Musculoskeletal Musculoskeletal: absent: As Per HPI, Abnormal Gait, Arthralgias, Atrophy, Back Pain, Deformity, Joint Swelling, Limited Range of Motion, Loss of Height, Muscle Cramps, Muscle Weakness, Myalgias, Neck Pain, Numbness, Radiating Pain into Limb, Stiffness, Tingling, Other - Neurological Neurological: absent: As Per HPI, Abnormal Gait, Abnormal Hearing, Abnormal Movements, Abnormal Speech, Behavioral Changes, Burning Sensations, Confusion, Convulsions, Disequilibrium, Dizziness, Numbness, Focal Weakness, Frequent Falls, Headaches, Lack of Coordination, Loss of Vision, Memory Loss, Paresthesias, Radicular Pain, Restless Legs, Sensory Deficit, Syncope, Tingling, Tremor, Vertigo, Weakness, Other Visual Disturbances, Other - Endocrine Endocrine: absent: As Per HPI, Change in Body Appearance, Change in Libido, Cold Intolorance, Deepening of Voice, Excessive Sweating, Fatigue, Flushing, Heat Intolorance, Increase in Ring/Shoe/Hat Size, Palpitations, Polydipsia, Polyphagia, Polyuria, Other - Hematologic/Lymphatic Hematologic: absent: As Per HPI, Easy Bleeding, Easy Bruising, Lymphadenopathy, Other Past Patient History - Infectious Disease Hx of Infectious Diseases: C.diff - Past Medical History & Family History Past Medical History?: Yes - Past Social History Smoking Status: Former Smoker Chewing Tobacco Use: No Cigar Use: No Alcohol: None Drugs: Denies Home Situation {Lives}: Residential - CARDIAC Hx Hypertension: Yes - PULMONARY Hx Respiratory Disorders: Yes (DYSPNEA ON EXERTION) - NEUROLOGICAL Hx Dementia: Yes - HEENT Hx HEENT Problems: Yes Hx Cataracts: Yes - RENAL Hx Chronic Kidney Disease: No - ENDOCRINE/METABOLIC Hx Hypothyroidism: Yes - HEMATOLOGICAL/ONCOLOGICAL Hx Blood Disorders: Yes Hx Cancer: Yes (Intrahepatic bile duct carcinoma) - INTEGUMENTARY Hx Dermatological Problems: No - MUSCULOSKELETAL/RHEUMATOLOGICAL Hx Falls: No - GASTROINTESTINAL Hx Pancreatitis: Yes - GENITOURINARY/GYNECOLOGICAL Hx Genitourinary Disorders: No - PSYCHIATRIC Hx Substance Use: No - SURGICAL HISTORY Hx Cholecystectomy: Yes - ANESTHESIA Hx Anesthesia: Yes Hx Anesthesia Reactions: No Hx Malignant Hyperthermia: No Meds Allergies/Adverse Reactions: Allergies Allergy/AdvReac Type Severity Reaction Status Date / Time aspirin Allergy Intermediate SHORTNESS Verified 06/02/15 10:12 OF BREATH honey AdvReac SHORTNESS Verified 03/07/18 09:25 OF BREATH honey AdvReac SHORTNESS Uncoded 03/07/18 09:25 OF BREATH - Medications Medications: Current Medications Dextrose (Dextrose 50% Inj) 0 ml IV STAT PRN; Protocol PRN Reason: Hypoglycemia Protocol Dextrose (Glutose 15) 0 gm PO ONCE PRN; Protocol PRN Reason: Hypoglycemia Protocol Glucagon (Glucagen Diagnostic Kit) 0 mg IM STAT PRN; Protocol PRN Reason: Hypoglycemia Protocol Dextrose (Dextrose 5% In Water 1000 Ml) 1,000 mls @ 0 mls/hr IV .Q0M PRN; Protocol PRN Reason: Hypoglycemia Protocol Heparin Sodium/Sodium Chloride (Heparin 16357 Units/250ml 1/2 Normal Saline) 25,000 units in 250 mls @ 9.253 mls/hr IV .Q24H PRN; Protocol PRN Reason: PROTOCOL Last Admin: 03/07/18 17:50 Dose: 6 units/kg/hr, 4.627 mls/hr Fentanyl Citrate 2,500 mcg/ (Sodium Chloride) 250 mls @ 15.42 mls/hr IV .[id number] PRN; Protocol Last Admin: 03/09/18 04:12 Dose: 3 mcg/kg/hr, 23.13 mls/hr Meropenem 1 gm/ Sodium (Chloride) 100 mls @ 100 mls/hr IVPB Q8H [facility]; Protocol Last Admin: 03/09/18 14:54 Dose: 100 mls/hr Aztreonam 1 gm/ Sodium (Chloride) 100 mls @ 200 mls/hr IVPB Q8H [facility]; Protocol Last Admin: 03/09/18 14:54 Dose: 200 mls/hr Vasopressin 40 units/ Sodium (Chloride) 42 mls @ 2.52 mls/hr IV .[id number] [facility]; Protocol Last Admin: 03/09/18 14:54 Dose: Not Given Propofol (Diprivan) 1,000 mg in 100 mls @ 2.4 mls/hr IV .Q24H PRN; Protocol PRN Reason: TITRATE PER MD ORDER Last Titration: 03/09/18 04:15 Dose: 30 mcg/kg/min, 14.4 mls/hr Sodium Chloride (Sodium Chloride 0.9%) 1,000 mls @ 100 mls/hr IV .Q10H [facility] Last Admin: 03/09/18 14:00 Dose: 100 mls/hr Acetaminophen 1,000 mg/ (Miscellaneous) 100 mls @ 400 mls/hr IV Q6 PRN PRN Reason: Fever >100.4 F Stop: 03/10/18 06:01 Last Admin: 03/09/18 06:59 Dose: 400 mls/hr Insulin Aspart (Novolog) 0 unit SC Q6H [facility]; Protocol Last Admin: 03/09/18 14:54 Dose: Not Given Pantoprazole Sodium (Protonix Inj) 40 mg IVP Q12H [facility] Last Admin: 03/09/18 09:25 Dose: 40 mg Physical Exam - Constitutional Appears: Younger Than Stated Age - Head Exam Head Exam: ATRAUMATIC, NORMOCEPHALIC - Eye Exam Eye Exam: EOMI Pupil Exam: NORMAL ACCOMODATION - ENT Exam ENT Exam: Mucous Membranes Dry Additional comments: ETT+ - Neck Exam Neck exam: Positive for: Full Rom - Respiratory Exam Respiratory Exam: Decreased Breath Sounds - Cardiovascular Exam Cardiovascular Exam: REGULAR RHYTHM, +S1, +S2 - GI/Abdominal Exam GI & Abdominal Exam: Diminished Bowel Sounds, Tenderness - Rectal Exam Rectal Exam: Deferred - Exam Exam: NORMAL INSPECTION - Extremities Exam Extremities exam: Positive for: pedal edema - Back Exam Back exam: NORMAL INSPECTION - Neurological Exam Neurological exam: Altered - Psychiatric Exam Psychiatric exam: Depressed - Skin Skin Exam: Intact Results - Vital Signs Recent Vital Signs: Last Vital Signs Temp 101.2 F H 03/09/18 08:00 Pulse 81 03/09/18 11:01 Resp 16 03/09/18 11:01 BP 106/44 L 03/09/18 11:01 Pulse Ox 96 03/09/18 11:01 - Labs Result Diagrams: 03/12/18 07:22 03/12/18 07:22 Labs: Laboratory Results - last 24 hr 03/09/18 03/09/18 03/09/18 04:37 04:37 04:37 WBC 7.0 RBC 3.11 L Hgb 9.7 L Hct 28.2 L MCV 90.7 MCH 31.1 H MCHC 34.3 RDW 16.2 H Plt Count 193 MPV 8.5 Neut % (Auto) 81.3 H Lymph % (Auto) 17.2 L Haakon % (Auto) 0.6 Eos % (Auto) 0.7 Baso % (Auto) 0.2 Neut # (Auto) 5.7 Lymph # (Auto) 1.2 Haakon # (Auto) 0.0 Eos # (Auto) 0.0 Baso # (Auto) 0.0 Neutrophils % (Manual) 46 L Band Neutrophils % 27 H* Lymphocytes % (Manual) 17 L Reactive Lymphs % 3 H Monocytes % (Manual) 7 Platelet Estimate Normal Large Platelets Present PT 19.8 H INR 1.8 APTT 51 H Puncture Site pCO2 pO2 HCO3 ABG pH ABG Total CO2 ABG O2 Saturation ABG Base Excess Michele Test ABG Potassium A-a O2 Difference Respiratory Index Glucose Lactate Vent Mode Mechanical Rate FiO2 Tidal Volume PEEP Crit Value Called To Crit Value Called By Crit Value Read Back Blood Gas Notified Time Sodium 143 Potassium 2.3 L* D Chloride 102 Carbon Dioxide 28 Anion Gap 15 BUN 26 H Creatinine 0.6 L Est GFR ( Amer) > 60 Est GFR (Non-Af Amer) > 60 Random Glucose 176 H Calcium 6.5 L Phosphorus 1.9 L Magnesium 1.7 Total Bilirubin 5.8 H AST 98 H D ALT 98 H Alkaline Phosphatase 94 Total Protein 4.7 L Albumin 2.6 L Globulin 2.0 L Albumin/Globulin Ratio 1.3 Arterial Blood Potassium 03/09/18 05:28 WBC RBC Hgb Hct MCV MCH MCHC RDW Plt Count MPV Neut % (Auto) Lymph % (Auto) Haakon % (Auto) Eos % (Auto) Baso % (Auto) Neut # (Auto) Lymph # (Auto) Haakon # (Auto) Eos # (Auto) Baso # (Auto) Neutrophils % (Manual) Band Neutrophils % Lymphocytes % (Manual) Reactive Lymphs % Monocytes % (Manual) Platelet Estimate Large Platelets PT INR APTT Puncture Site A-line pCO2 30 L pO2 83 HCO3 29.5 H ABG pH 7.57 H ABG Total CO2 28.4 H ABG O2 Saturation 98.9 H ABG Base Excess 5.9 H Michele Test Na ABG Potassium 2.2 L* A-a O2 Difference 307.0 Respiratory Index 3.7 Glucose 181 H Lactate 5.3 H* Vent Mode Prvc Mechanical Rate 20 FiO2 60.0 Tidal Volume 450 PEEP 5 Crit Value Called To [facility] agricultural commodities inspector Crit Value Called By Tracey cochran rt Crit Value Read Back Y Blood Gas Notified Time 540 Sodium 146.0 Potassium Chloride 110.0 H Carbon Dioxide Anion Gap BUN Creatinine Est GFR ( Amer) Est GFR (Non-Af Amer) Random Glucose Calcium Phosphorus Magnesium Total Bilirubin AST ALT Alkaline Phosphatase Total Protein Albumin Globulin Albumin/Globulin Ratio Arterial Blood Potassium 2.2 L* Assessment & Plan - Assessment and Plan (Free Text) Assessment: 82-year-old female with a history of biliary ductal carcinoma, status post Whipple's procedure [facility] Recently admitted to the [facility] because of abdominal pain, nausea and vomiting. Patient had a CT angiogram of the abdomen on 03/07/2018 noted to have ischemic small bowel and occluded SMA. And also suspected hepatic infarct, splenic infarct, renal cortical infarct and free intraperitoneal air noted. Subsequently underwent laparotomy with lysis of adhesions Now vented in ICU on pressors and vent support Cultures from ETT + for ESBL Klebsiella sens to Merrem
[2018-03-09] MEDS: Heparin25000 units/250ml 1/2NS 25,000 UNITS/250 ML BAG IV PRN (19:38)
[2018-03-09 20:51] LABS: BASO % 0.4 % (0.0-2.0); EOS # 0.2 K/uL (0.0-0.7); EOS % 2.9 % (0.0-4.0); HEMOGLOBIN 10.4 g/dL (11.0-16.0); LYMPH # 1.4 K/uL (1.0-4.3); LYMPH % 16.1 % (20.0-40.0); MEAN CELL VOLUME 92.5 fL (81.0-99.0); MEAN CORPUSCULAR HEMOGLOBIN 31.5 pg (27.0-31.0); MEAN PLATELET VOLUME 8.7 fL (7.2-11.7); MONO % 0.3 % (0.0-10.0); NEUT # 6.8 K/uL (1.8-7.0); NEUT % 80.3 % (50.0-75.0); NRBC % 0.1 % (0.0-2.0); RBC 3.3 Mil/uL (3.80-5.20); RED CELL DISTRIBUTION WIDTH 16.5 % (11.5-14.5); WHITE BLOOD COUNT 8.4 K/uL (4.8-10.8)
[2018-03-09 21:02] LABS: ALB/GLOB RATIO 1.2 (1.0-2.1); ALBUMIN 2.5 g/dL (3.5-5.0); ALT/SGPT 87 U/L (9-52); AST/SGOT 66 U/L (14-36); BLOOD UREA NITROGEN 30 mg/dL (7-17); CALCIUM 6.3 mg/dl (8.6-10.4); GFR NON-AFRICAN AMERICAN > 60
[2018-03-09] MEDS ORDERED: SODIUM CHLORIDE 0.45% IV SCH (21:30)
[2018-03-09] MEDS ORDERED: POTASSIUM CHLORIDE IV SCH (21:30)
[2018-03-09] MEDS: Potassium Chloride 20 mEq 100 ML IV SCH ×3 (22:03→23:45)
[2018-03-09] MEDS: Magnesium Sulfate 1 gm in D5W 1 GM/100 ML BAG IVPB SCH ×2 (22:03→22:34)
[2018-03-09 22:14] LABS: ARTERIAL BLOOD GAS HCO3 25.4 mmol/L (21-28); ARTERIAL BLOOD GAS O2 SAT 98.1 % (95-98); ARTERIAL BLOOD GAS PCO2 34 mm/Hg (35-45); ARTERIAL BLOOD GAS PH 7.46 (7.35-7.45); ARTERIAL BLOOD GAS PO2 76 mm/Hg (80-100); ARTERIAL BLOOD GAS TCO2 25.2 mmol/L (22-28)
[2018-03-10] MEDS: (Novolog) Insulin Aspart, Recombinant 100 u/ml 10 ml vial SC SCH ×4 (00:43→18:31)
[2018-03-10] MEDS: Potassium Chloride 20 mEq 100 ML IV SCH ×2 (00:59→03:30)
[2018-03-10] MEDS: Propofol 10 mg/ml 1,000 MG/100 ML VIAL IV PRN ×2 (06:33→18:03)
[2018-03-10] MEDS: Meropenem 1 GM in Sodium Chloride 0.9% 100 ML IVPB SCH ×3 (06:34→23:25)
[2018-03-10 06:45] LABS: ABG ALLEN TEST POS; ARTERIAL BLOOD GAS O2 SAT 96.8 % (95-98); ARTERIAL BLOOD GAS PCO2 34 mm/Hg (35-45); ARTERIAL BLOOD GAS PH 7.47 (7.35-7.45); ARTERIAL BLOOD GAS PO2 64 mm/Hg (80-100); ARTERIAL BLOOD GAS TCO2 25.7 mmol/L (22-28)
[2018-03-10 07:04] LABS: BASO % 0.3 % (0.0-2.0); EOS # 0.4 K/uL (0.0-0.7); EOS % 4.8 % (0.0-4.0); HEMOGLOBIN 10.6 g/dL (11.0-16.0); LYMPH # 1.6 K/uL (1.0-4.3); LYMPH % 17.9 % (20.0-40.0); MEAN CELL VOLUME 92.6 fL (81.0-99.0); MEAN CORPUSCULAR HEMOGLOBIN 31.1 pg (27.0-31.0); MEAN CORPUSCULAR HGB CONC 33.6 g/dL (33.0-37.0); MEAN PLATELET VOLUME 9.1 fL (7.2-11.7); MONO # 0.1 K/uL (0.0-0.8); MONO % 1.1 % (0.0-10.0); NEUT # 6.6 K/uL (1.8-7.0); NEUT % 75.9 % (50.0-75.0); NRBC % 0.4 % (0.0-2.0); RBC 3.4 Mil/uL (3.80-5.20); RED CELL DISTRIBUTION WIDTH 16.7 % (11.5-14.5); WHITE BLOOD COUNT 8.7 K/uL (4.8-10.8)
[2018-03-10 07:34] LABS: ALB/GLOB RATIO 1.1 (1.0-2.1); ALBUMIN 2.4 g/dL (3.5-5.0); ALT/SGPT 75 U/L (9-52); AST/SGOT 65 U/L (14-36); BLOOD UREA NITROGEN 34 mg/dL (7-17); CALCIUM 6.5 mg/dl (8.6-10.4); GFR NON-AFRICAN AMERICAN > 60
[2018-03-10 07:55] LABS: INR 1.7
[2018-03-10 08:31] LABS: FOLATE > 20.0 ng/mL
--- NOTE | 2018-03-10 08:40 | RAD ---
Date of service: 03/10/2018 HISTORY: intubated COMPARISON: 03/09/2018 FINDINGS: Endotracheal tube terminates 3 cm proximal to the carson. The nasogastric tube terminates in the stomach. LUNGS: There are low lung volumes. There is moderate pulmonary venous congestion and prominent central vasculature. PLEURA: Layering pleural effusions. No pneumothorax CARDIOVASCULAR: Mild cardiomegaly. Atherosclerotic aortic arch calcifications are present. OSSEOUS STRUCTURES: Within normal limits for the patient's age. VISUALIZED UPPER ABDOMEN: Normal. OTHER FINDINGS: None. IMPRESSION: Worsening congestive heart failure. Stable position of endotracheal and nasogastric tubes.
--- NOTE | 2018-03-10 09:50 | CON ---
DATE: 03/07/2018 HISTORY OF PRESENT ILLNESS: This patient is an 82-year-old female. She comes from the rehab. 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 She was hypotensive. She still is hypotensive and on vasopressin as well as Levophed and is getting antibiotics at this time, fentanyl patch was also there. The patient also received IV fluids, and she is receiving blood transfusion now, and she was given Narcan in the ER, triple lumen was placed, and the patient is in ICU right now, not able to give any history. Most of the history is taken from the chart. PAST MEDICAL HISTORY: She has history of dementia, diabetes type 2, hypertension, hypothyroidism, cholecystectomy years ago and Whipple surgery at [facility] and also had jejunostomy tube right now. She is diabetic, hypertensive with dementia, hypothyroidism. PAST SURGICAL HISTORY: She has surgical history of cholecystectomy years ago and this year with intrahepatic biliary duct carcinoma recently done. MEDICATIONS: Her medications include levothyroxine, donepezil, Seroquel, Reglan, , Zofran, Maalox, MVI, Remeron, metoprolol, Megace, Lantus, fentanyl, gabapentin, . ALLERGIES: SHE IS ALLERGIC TO ASPIRIN AND HONEY. SOCIAL HISTORY: She comes from the prison. No history of smoking or drinking. REVIEW OF SYSTEMS: She was in acute respiratory distress. She is intubated, and she has had past history of C. difficile. Cardiac: Past medical history of hypertension. Pulmonary: Dyspnea. Neurological: Dementia. HEENT: Cataract. Renal: Chronic renal failure. Endocrine peña, she has hypothyroidism. Hematological: There are blood disorder and has intrahepatic biliary duct cancer which was resected I am told. Dermatological: No skin issues. No history of fall, and there is history of pancreatitis. No trouble, but she is not making much urine right now as she was hypotensive and she was in a shock state with psychiatrist. No substance abuse. Surgical history of cholecystectomy. SHE IS ALLERGIC TO ASPIRIN, gives shortness of breath. She is on current dose of vancomycin last night. She is on norepinephrine. She was on Zosyn, bicarb drip, and she got . She went to the OR and had a sepsis protocol also done, and in the ER, they found her to have diffuse small bowel. No focal necrosis. Normal colon and stomach, that was operative finding of the preop and postop rigid exploratory laparoscopy and lysis of adhesions. The patient is also being followed by GI and also Dr. Freitas is following this patient. PHYSICAL EXAMINATION: GENERAL: The patient is sick looking. She is on a ventilator and is sedated. NG tube as in place. There is suction of bilious material looks like. VITAL SIGNS: T-max of 99.5 right now, heart rate 114, blood pressure 88/34, respirations are 20. HEAD: Atraumatic, normocephalic. NECK: Supple. LUNGS: Clear to auscultation. No crackles or rales present. HEART: S1, S2, tachycardic. ABDOMEN: Has two surgical dressings at this time. Abdomen appears distended, diffusely but it has no bowel sounds present and it is quiet. Has a right groin present, and she also has a Tran catheter at this time. EXTREMITIES: Lower extremities have no edema, and so she is admitted with mesenteric ischemia and is status post exploratory lap with pressure support; and she is in the ICU, and she presented with septic shock as her lactate level was very high. LABORATORY DATA: White count was 34.8, hemoglobin 7.9, hematocrit 24.9, platelet count is 469. She had 32 bands yesterday. Now her white count from 24.7, it is 14.3; hemoglobin is 8.8; hematocrit of 26.4; platelet count is 348. INR is being monitored also; and the lactate was 11.4, 10.7, and now it is 5.9. She was changed to meropenem today, and we are giving full dose to her along with Azactam. She did receive vancomycin dose last night and vancomycin random level is pending at this time. Her lactic acid is 5.1, needs to be monitored every 4 hours. Other labs, micro, blood cultures are negative 24 hours. BUN is 22, creatinine 0.7. ASSESSMENT AND PLAN: She had angiographic CT done right now. She had abdominal and pelvic CT when she came in which showed compatible with ischemic small bowel, and left hemiabdomen and pelvis with extensive pneumatosis, intestinal mesenteric venous gas. She has ischemic bowels, and she also has adrenal nodule. The patient went to Surgery, and she is postop but still remains hypotensive. We will cover with antibiotics, and she is already covered with them. She is on vasopressors. She is getting blood transfusions. She is in ICU. Her daughter was at the bedside, and we discussed the plan with her. Lv Gamboa MD
--- NOTE | 2018-03-10 11:13 | CP.PCM.PN ---
Subjective - Date & Time of Evaluation Date of Evaluation: 03/10/18 Time of Evaluation: 08:00 - Subjective Subjective: Surgery: Dr. Freitas Pt seen and examined. No acute overnight events. Pt remains intubated/sedated in the ICU. Continues to be on vasopressin; with MAPs > 60 at this time. Continues to have minimal UOP & started on Lasix drip to help with diuresis. Tmax 102 overnight, no longer acidotic with decreasing lactate. Objective - Vital Signs/Intake and Output Vital Signs (last 24 hours): Temp Pulse Resp BP Pulse Ox 98.6 F 67 16 102/48 L 99 03/10/18 08:00 03/10/18 08:31 03/10/18 08:31 03/10/18 08:31 03/10/18 08:31 Intake and Output: 03/10/18 03/10/18 06:59 18:59 Intake Total 3333.2 404.4 Output Total 255 10 Balance 3078.2 394.4 - Medications Medications: Current Medications Dextrose (Dextrose 50% Inj) 0 ml IV STAT PRN; Protocol PRN Reason: Hypoglycemia Protocol Dextrose (Glutose 15) 0 gm PO ONCE PRN; Protocol PRN Reason: Hypoglycemia Protocol Glucagon (Glucagen Diagnostic Kit) 0 mg IM STAT PRN; Protocol PRN Reason: Hypoglycemia Protocol Dextrose (Dextrose 5% In Water 1000 Ml) 1,000 mls @ 0 mls/hr IV .Q0M PRN; Protocol PRN Reason: Hypoglycemia Protocol Heparin Sodium/Sodium Chloride (Heparin 00193 Units/250ml 1/2 Normal Saline) 25,000 units in 250 mls @ 9.253 mls/hr IV .Q24H PRN; Protocol PRN Reason: PROTOCOL Last Titration: 03/10/18 09:35 Dose: 6 units/kg/hr, 4.627 mls/hr Fentanyl Citrate 2,500 mcg/ (Sodium Chloride) 250 mls @ 15.42 mls/hr IV .[id number] PRN; Protocol Last Admin: 03/10/18 03:41 Dose: 3 mcg/kg/hr, 23.13 mls/hr Meropenem 1 gm/ Sodium (Chloride) 100 mls @ 100 mls/hr IVPB Q8H ARPIT; Protocol Last Admin: 03/10/18 06:34 Dose: 100 mls/hr Vasopressin 40 units/ Sodium (Chloride) 42 mls @ 2.52 mls/hr IV .[id number] ARPIT; Protocol Last Titration: 03/10/18 05:36 Dose: 0.04 units/min, 2.52 mls/hr Propofol (Diprivan) 1,000 mg in 100 mls @ 2.4 mls/hr IV .Q24H PRN; Protocol PRN Reason: TITRATE PER MD ORDER Last Admin: 03/10/18 06:33 Dose: 20 mcg/kg/min, 9.6 mls/hr Sodium Chloride (Sodium Chloride 0.9%) 1,000 mls @ 100 mls/hr IV .Q10H ARPIT Last Admin: 03/09/18 22:01 Dose: 100 mls/hr Furosemide 100 mg/ Sodium (Chloride) 100 mls @ 5 mls/hr IV .Q20H ARPIT Insulin Aspart (Novolog) 0 unit SC Q6H ARPIT; Protocol Last Admin: 03/10/18 06:35 Dose: Not Given Pantoprazole Sodium (Protonix Inj) 40 mg IVP Q12H ARPIT Last Admin: 03/10/18 09:28 Dose: 40 mg - Labs Labs: 03/10/18 06:55 03/10/18 06:55 PT 19.0 SECONDS (9.7-12.2) H 03/10/18 06:55 INR 1.7 03/10/18 06:55 APTT 54 SECONDS (21-34) H 03/10/18 06:55 - Constitutional Appears: No Acute Distress - ENT Exam Additional comments: NGT & ETT in place - Respiratory Exam Respiratory Exam: Decreased Breath Sounds (b/l lower lung rivas ), NORMAL BREATHING PATTERN - GI/Abdominal Exam GI & Abdominal Exam: Distended, Soft Additional comments: midline incision with leyda, jejunostomy tube LLQ - Skin Skin Exam: Dry, Warm Assessment and Plan - Assessment and Plan (Free Text) Assessment: 82F with mesenteric ischemia & pneumotosis s/p Ex-Lap; POD#4 Plan: - pt not clinically deteriorating; with improved MAPs & resolving acidosis - per discussion with [employer] Dr. Haywood; will repeat CT abdomen/pelvis today to evaluate worsening or improvement of focal areas of infarct in multiple organs - resume Hep drip - tentative plan for second look laparotomy tomorrow - d/w Dr. Fortino Kate
[2018-03-10] MEDS: Sodium Chloride 0.9% 1,000 ML IV SCH (12:07)
--- NOTE | 2018-03-10 12:34 | CP.CCUPN ---
CCU Subjective - Physician Review Subjective (Free Text): 03/10/18 12:31 Pt seen and examined at bedside. Pt unable to provide a 12 pt ROS CCU Objective - Vital Signs / Intake & Output Vital Signs (Last 4 hours): Vital Signs Pulse Resp BP Pulse Ox 03/10/18 11:01 63 16 84/28 L 97 03/10/18 11:00 63 16 98 03/10/18 10:34 68 16 93/35 L 97 03/10/18 10:01 65 16 96/42 L 99 03/10/18 10:00 64 16 99 03/10/18 09:31 65 16 114/42 L 99 03/10/18 09:01 66 16 104/44 L 99 03/10/18 09:00 64 16 99 Intake and Output (Last 8hrs): Intake & Output 03/09/18 03/10/18 03/10/18 22:59 06:59 14:59 Intake Total 1737.6 2296.4 737.8 Output Total 430 245 20 Balance 1307.6 2051.4 717.8 Weight 184 lb 6 oz Intake: IV 537 400 50 Intake, IV Amount 1200.6 1896.4 687.8 Distal Port Femoral Y 232.4 800 site Left Antecubital 36.8 27.6 Left Wrist 13.8 Medial Port 37.2 74.4 46.5 Medial Port Femoral 92.4 184.8 115.5 Prox Port 1.8 9.6 12.0 Proximal Port Femoral 400 800 500 Right Hand 400 Oral 0 Output: Gastric Amount 150 100 Right 150 100 Drainage 170 50 LEFT DUODENOSTOMY 20 50 Right Nare 150 Urine 110 95 20 Urethral (Tran) 110 95 20 Other: # Bowel Movements 1 - Physical Exam Physical Exam Limitations: Positive for: Altered Mental Status Head: Positive for: Atraumatic, Normocephalic Pupils: Positive for: PERRL Extroacular Muscles: Positive for: EOMI Respiratory/Chest: Positive for: Clear to Auscultation, Other (on vent, intubated) Cardiovascular: Positive for: Normal S1, S2. Negative for: Murmurs Abdomen: Positive for: Distention Upper Extremity: Positive for: Edema Lower Extremity: Positive for: Edema Neurological: Positive for: Other (sedated) - Medications Active Medications: Active Medications Generic Name Dose Route Start Last Admin Trade Name Freq PRN Reason Stop Dose Admin Dextrose 0 ml 03/06/18 15:02 Dextrose 50% Inj IV STAT PRN Hypoglycemia Protocol Protocol Dextrose 0 gm 03/06/18 15:02 Glutose 15 PO ONCE PRN Hypoglycemia Protocol Protocol Glucagon 0 mg 03/06/18 15:02 Glucagen Diagnostic Kit IM STAT PRN Hypoglycemia Protocol Protocol Dextrose 1,000 mls @ 0 mls/hr 03/06/18 15:02 Dextrose 5% In Water 1000 Ml IV .Q0M PRN Hypoglycemia Protocol Protocol Per Protocol Heparin Sodium/Sodium Chloride 25,000 units in 250 mls @ 9.253 mls/hr 03/06/18 23:55 03/10/18 09:35 Heparin 62443 Units/250ml 1/2 Normal Saline IV 6 units/kg/hr .Q24H PRN 4.627 mls/hr PROTOCOL Titration Protocol 12 UNITS/KG/HR Fentanyl Citrate 2,500 mcg/ 250 mls @ 15.42 mls/hr 03/07/18 02:15 03/10/18 03:41 Sodium Chloride IV 3 mcg/kg/hr .[id number] PRN 23.13 mls/hr Administration Protocol 2 MCG/KG/HR Meropenem 1 gm/ Sodium 100 mls @ 100 mls/hr 03/07/18 07:15 03/10/18 06:34 Chloride IVPB 100 mls/hr Q8H [facility] Administration Protocol Propofol 1,000 mg in 100 mls @ 2.4 mls/hr 03/08/18 20:02 03/10/18 12:09 Diprivan IV 18 mcg/kg/min .Q24H PRN 8.64 mls/hr TITRATE PER MD ORDER Titration Protocol 5 MCG/KG/MIN Sodium Chloride 1,000 mls @ 100 mls/hr 03/09/18 01:30 03/10/18 12:07 Sodium Chloride 0.9% IV 100 mls/hr .Q10H [facility] Administration Furosemide 100 mg/ Sodium 100 mls @ 5 mls/hr 03/10/18 10:15 Chloride IV .Q20H [facility] 5 MG/HR Norepinephrine Bitartrate 4 mg 250 mls @ 15 mls/hr 03/10/18 12:30 / Sodium Chloride IV .[id number] PRN TITRATE PER MD ORDER Protocol 4 MCG/MIN Insulin Aspart 0 unit 03/06/18 18:00 03/10/18 12:06 Novolog SC Not Given Q6H [facility] Protocol Pantoprazole Sodium 40 mg 03/07/18 10:00 03/10/18 09:28 Protonix Inj IVP 40 mg Q12H [facility] Administration - Patient Studies Lab Studies: Microbiology Studies 03/06/18 13:17 Blood Culture - Preliminary Blood NO GROWTH AFTER 3 DAYS 03/06/18 13:17 Blood Culture - Preliminary Blood NO GROWTH AFTER 3 DAYS 03/07/18 15:47 Gram Stain - Final Trachasp Sputum Culture - Final Klebsiella Pneumoniae Ssp Pneu Lab Studies 03/10/18 03/10/18 03/10/18 Range/Units 11:44 06:55 06:55 WBC (4.8-10.8) K/uL RBC (3.80-5.20) Mil/uL Hgb (11.0-16.0) g/dL Hct (34.0-47.0) % MCV (81.0-99.0) fL MCH (27.0-31.0) pg MCHC (33.0-37.0) g/dL RDW (11.5-14.5) % Plt Count (130-400) K/uL MPV (7.2-11.7) fL Neut % (Auto) (50.0-75.0) % Lymph % (Auto) (20.0-40.0) % [place] % (Auto) (0.0-10.0) % Eos % (Auto) (0.0-4.0) % Baso % (Auto) (0.0-2.0) % Neut # (Auto) (1.8-7.0) K/uL Lymph # (Auto) (1.0-4.3) K/uL [place] # (Auto) (0.0-0.8) K/uL Eos # (Auto) (0.0-0.7) K/uL Baso # (Auto) (0.0-0.2) K/uL Smear Path Review Retic Count 1.5 (0.5-1.5) % PT 19.0 H (9.7-12.2) SECONDS INR 1.7 APTT 54 H (21-34) SECONDS Fibrinogen 373 (200-400) mg/dL Puncture Site pCO2 (35-45) mm/Hg pO2 (80-100) mm/Hg HCO3 (21-28) mmol/L ABG pH (7.35-7.45) ABG Total CO2 (22-28) mmol/L ABG O2 Saturation (95-98) % ABG Base Excess (-2.0-3.0) mmol/L ABG Hemoglobin (11.7-17.4) g/dL ABG Carboxyhemoglobin (0.5-1.5) % POC ABG HHb (Measured) (0.0-5.0) % ABG Methemoglobin (0.0-3.0) % Michele Test ABG Potassium (3.6-5.2) mmol/L A-a O2 Difference mm/Hg Respiratory Index Hgb O2 Saturation (95.0-98.0) % Glucose (65-105) mg/dl Lactate (0.7-2.1) mmol/L Vent Mode Mechanical Rate FiO2 % Tidal Volume PEEP Crit Value Called To Crit Value Called By Crit Value Read Back Blood Gas Notified Time Sodium (132-148) mmol/L Potassium (3.6-5.2) mmol/L Chloride (98-107) mmol/L Carbon Dioxide (22-30) mmol/L Anion Gap (10-20) BUN (7-17) mg/dL Creatinine (0.7-1.2) mg/dL Est GFR ( Amer) Est GFR (Non-Af Amer) POC Glucose (mg/dL) 78 (65-110) mg/dL Random Glucose (65-105) mg/dL Calcium (8.6-10.4) mg/dl Phosphorus (2.5-4.5) mg/dL Magnesium (1.6-2.3) mg/dL Total Bilirubin (0.2-1.3) mg/dL AST (14-36) U/L ALT (9-52) U/L Alkaline Phosphatase (38-126) U/L Total Protein (6.3-8.3) g/dL Albumin (3.5-5.0) g/dL Globulin (2.2-3.9) gm/dL Albumin/Globulin Ratio (1.0-2.1) Vitamin B12 (239-931) pg/mL Folate ng/mL Arterial Blood Potassium (3.6-5.2) mmol/L 03/10/18 03/10/18 03/10/18 Range/Units 06:55 06:55 05:37 WBC 8.7 (4.8-10.8) K/uL RBC 3.40 L (3.80-5.20) Mil/uL Hgb 10.6 L (11.0-16.0) g/dL Hct 31.4 L (34.0-47.0) % MCV 92.6 (81.0-99.0) fL MCH 31.1 H (27.0-31.0) pg MCHC 33.6 (33.0-37.0) g/dL RDW 16.7 H (11.5-14.5) % Plt Count 172 (130-400) K/uL MPV 9.1 (7.2-11.7) fL Neut % (Auto) 75.9 H (50.0-75.0) % Lymph % (Auto) 17.9 L (20.0-40.0) % [place] % (Auto) 1.1 (0.0-10.0) % Eos % (Auto) 4.8 H (0.0-4.0) % Baso % (Auto) 0.3 (0.0-2.0) % Neut # (Auto) 6.6 (1.8-7.0) K/uL Lymph # (Auto) 1.6 (1.0-4.3) K/uL [place] # (Auto) 0.1 (0.0-0.8) K/uL Eos # (Auto) 0.4 (0.0-0.7) K/uL Baso # (Auto) 0.0 (0.0-0.2) K/uL Smear Path Review Retic Count (0.5-1.5) % PT (9.7-12.2) SECONDS INR APTT (21-34) SECONDS Fibrinogen (200-400) mg/dL Puncture Site R rad pCO2 34 L (35-45) mm/Hg pO2 64 L (80-100) mm/Hg HCO3 26.0 (21-28) mmol/L ABG pH 7.47 H (7.35-7.45) ABG Total CO2 25.7 (22-28) mmol/L ABG O2 Saturation 96.8 (95-98) % ABG Base Excess 1.5 (-2.0-3.0) mmol/L ABG Hemoglobin (11.7-17.4) g/dL ABG Carboxyhemoglobin (0.5-1.5) % POC ABG HHb (Measured) (0.0-5.0) % ABG Methemoglobin (0.0-3.0) % Michele Test Pos ABG Potassium 3.4 L (3.6-5.2) mmol/L A-a O2 Difference 321.0 mm/Hg Respiratory Index 5.0 Hgb O2 Saturation (95.0-98.0) % Glucose 94 (65-105) mg/dl Lactate 4.5 H* (0.7-2.1) mmol/L Vent Mode Prvc Mechanical Rate 16 FiO2 60.0 % Tidal Volume 450 PEEP 5 Crit Value Called To Nereida ramos agriculture professor Crit Value Called By Tracey gibson rt Crit Value Read Back Y Blood Gas Notified Time 644 Sodium 142 143.0 (132-148) mmol/L Potassium 3.7 (3.6-5.2) mmol/L Chloride 108 H 112.0 H (98-107) mmol/L Carbon Dioxide 23 (22-30) mmol/L Anion Gap 15 (10-20) BUN 34 H (7-17) mg/dL Creatinine 0.9 (0.7-1.2) mg/dL Est GFR ( Amer) > 60 Est GFR (Non-Af Amer) > 60 POC Glucose (mg/dL) (65-110) mg/dL Random Glucose 91 (65-105) mg/dL Calcium 6.5 L (8.6-10.4) mg/dl Phosphorus 2.8 (2.5-4.5) mg/dL Magnesium 2.1 (1.6-2.3) mg/dL Total Bilirubin 5.0 H (0.2-1.3) mg/dL AST 65 H (14-36) U/L ALT 75 H (9-52) U/L Alkaline Phosphatase 96 (38-126) U/L Total Protein 4.6 L (6.3-8.3) g/dL Albumin 2.4 L (3.5-5.0) g/dL Globulin 2.2 (2.2-3.9) gm/dL Albumin/Globulin Ratio 1.1 (1.0-2.1) Vitamin B12 > 1000 H (239-931) pg/mL Folate > 20.0 ng/mL Arterial Blood Potassium 3.4 L (3.6-5.2) mmol/L 03/10/18 03/09/18 03/09/18 Range/Units 05:21 23:38 22:10 WBC (4.8-10.8) K/uL RBC (3.80-5.20) Mil/uL Hgb (11.0-16.0) g/dL Hct (34.0-47.0) % MCV (81.0-99.0) fL MCH (27.0-31.0) pg MCHC (33.0-37.0) g/dL RDW (11.5-14.5) % Plt Count (130-400) K/uL MPV (7.2-11.7) fL Neut % (Auto) (50.0-75.0) % Lymph % (Auto) (20.0-40.0) % [place] % (Auto) (0.0-10.0) % Eos % (Auto) (0.0-4.0) % Baso % (Auto) (0.0-2.0) % Neut # (Auto) (1.8-7.0) K/uL Lymph # (Auto) (1.0-4.3) K/uL [place] # (Auto) (0.0-0.8) K/uL Eos # (Auto) (0.0-0.7) K/uL Baso # (Auto) (0.0-0.2) K/uL Smear Path Review Retic Count (0.5-1.5) % PT (9.7-12.2) SECONDS INR APTT (21-34) SECONDS Fibrinogen (200-400) mg/dL Puncture Site Rra pCO2 34 L (35-45) mm/Hg pO2 76 L (80-100) mm/Hg HCO3 25.4 (21-28) mmol/L ABG pH 7.46 H (7.35-7.45) ABG Total CO2 25.2 (22-28) mmol/L ABG O2 Saturation 98.1 H (95-98) % ABG Base Excess 0.6 (-2.0-3.0) mmol/L ABG Hemoglobin 10.0 L (11.7-17.4) g/dL ABG Carboxyhemoglobin 1.9 H (0.5-1.5) % POC ABG HHb (Measured) 1.8 (0.0-5.0) % ABG Methemoglobin 1.1 (0.0-3.0) % Michele Test Na ABG Potassium (3.6-5.2) mmol/L A-a O2 Difference 309.0 mm/Hg Respiratory Index 4.1 Hgb O2 Saturation 95.2 (95.0-98.0) % Glucose (65-105) mg/dl Lactate (0.7-2.1) mmol/L Vent Mode Prvc Mechanical Rate 16 FiO2 60.0 % Tidal Volume 450 PEEP 5 Crit Value Called To Crit Value Called By Crit Value Read Back Blood Gas Notified Time Sodium (132-148) mmol/L Potassium (3.6-5.2) mmol/L Chloride (98-107) mmol/L Carbon Dioxide (22-30) mmol/L Anion Gap (10-20) BUN (7-17) mg/dL Creatinine (0.7-1.2) mg/dL Est GFR ( Amer) Est GFR (Non-Af Amer) POC Glucose (mg/dL) 83 120 H (65-110) mg/dL Random Glucose (65-105) mg/dL Calcium (8.6-10.4) mg/dl Phosphorus (2.5-4.5) mg/dL Magnesium (1.6-2.3) mg/dL Total Bilirubin (0.2-1.3) mg/dL AST (14-36) U/L ALT (9-52) U/L Alkaline Phosphatase (38-126) U/L Total Protein (6.3-8.3) g/dL Albumin (3.5-5.0) g/dL Globulin (2.2-3.9) gm/dL Albumin/Globulin Ratio (1.0-2.1) Vitamin B12 (239-931) pg/mL Folate ng/mL Arterial Blood Potassium (3.6-5.2) mmol/L 03/09/18 03/09/18 03/09/18 Range/Units 20:40 20:40 17:51 WBC 8.4 (4.8-10.8) K/uL RBC 3.30 L (3.80-5.20) Mil/uL Hgb 10.4 L (11.0-16.0) g/dL Hct 30.5 L (34.0-47.0) % MCV 92.5 (81.0-99.0) fL MCH 31.5 H (27.0-31.0) pg MCHC 34.0 (33.0-37.0) g/dL RDW 16.5 H (11.5-14.5) % Plt Count 183 (130-400) K/uL MPV 8.7 (7.2-11.7) fL Neut % (Auto) 80.3 H (50.0-75.0) % Lymph % (Auto) 16.1 L (20.0-40.0) % [place] % (Auto) 0.3 (0.0-10.0) % Eos % (Auto) 2.9 (0.0-4.0) % Baso % (Auto) 0.4 (0.0-2.0) % Neut # (Auto) 6.8 (1.8-7.0) K/uL Lymph # (Auto) 1.4 (1.0-4.3) K/uL [place] # (Auto) 0.0 (0.0-0.8) K/uL Eos # (Auto) 0.2 (0.0-0.7) K/uL Baso # (Auto) 0.0 (0.0-0.2) K/uL Smear Path Review Retic Count (0.5-1.5) % PT (9.7-12.2) SECONDS INR APTT (21-34) SECONDS Fibrinogen (200-400) mg/dL Puncture Site pCO2 (35-45) mm/Hg pO2 (80-100) mm/Hg HCO3 (21-28) mmol/L ABG pH (7.35-7.45) ABG Total CO2 (22-28) mmol/L ABG O2 Saturation (95-98) % ABG Base Excess (-2.0-3.0) mmol/L ABG Hemoglobin (11.7-17.4) g/dL ABG Carboxyhemoglobin (0.5-1.5) % POC ABG HHb (Measured) (0.0-5.0) % ABG Methemoglobin (0.0-3.0) % Michele Test ABG Potassium (3.6-5.2) mmol/L A-a O2 Difference mm/Hg Respiratory Index Hgb O2 Saturation (95.0-98.0) % Glucose (65-105) mg/dl Lactate (0.7-2.1) mmol/L Vent Mode Mechanical Rate FiO2 % Tidal Volume PEEP Crit Value Called To Crit Value Called By Crit Value Read Back Blood Gas Notified Time Sodium 142 (132-148) mmol/L Potassium 2.6 L (3.6-5.2) mmol/L Chloride 105 (98-107) mmol/L Carbon Dioxide 24 (22-30) mmol/L Anion Gap 15 (10-20) BUN 30 H (7-17) mg/dL Creatinine 0.8 (0.7-1.2) mg/dL Est GFR ( Amer) > 60 Est GFR (Non-Af Amer) > 60 POC Glucose (mg/dL) 127 H (65-110) mg/dL Random Glucose 122 H (65-105) mg/dL Calcium 6.3 L (8.6-10.4) mg/dl Phosphorus 2.9 (2.5-4.5) mg/dL Magnesium 1.6 (1.6-2.3) mg/dL Total Bilirubin 5.2 H (0.2-1.3) mg/dL AST 66 H D (14-36) U/L ALT 87 H (9-52) U/L Alkaline Phosphatase 80 (38-126) U/L Total Protein 4.7 L (6.3-8.3) g/dL Albumin 2.5 L (3.5-5.0) g/dL Globulin 2.2 (2.2-3.9) gm/dL Albumin/Globulin Ratio 1.2 (1.0-2.1) Vitamin B12 (239-931) pg/mL Folate ng/mL Arterial Blood Potassium (3.6-5.2) mmol/L 03/09/18 03/09/18 03/08/18 Range/Units 11:05 00:43 17:44 WBC (4.8-10.8) K/uL RBC (3.80-5.20) Mil/uL Hgb (11.0-16.0) g/dL Hct (34.0-47.0) % MCV (81.0-99.0) fL MCH (27.0-31.0) pg MCHC (33.0-37.0) g/dL RDW (11.5-14.5) % Plt Count (130-400) K/uL MPV (7.2-11.7) fL Neut % (Auto) (50.0-75.0) % Lymph % (Auto) (20.0-40.0) % [place] % (Auto) (0.0-10.0) % Eos % (Auto) (0.0-4.0) % Baso % (Auto) (0.0-2.0) % Neut # (Auto) (1.8-7.0) K/uL Lymph # (Auto) (1.0-4.3) K/uL [place] # (Auto) (0.0-0.8) K/uL Eos # (Auto) (0.0-0.7) K/uL Baso # (Auto) (0.0-0.2) K/uL Smear Path Review Retic Count (0.5-1.5) % PT (9.7-12.2) SECONDS INR APTT (21-34) SECONDS Fibrinogen (200-400) mg/dL Puncture Site pCO2 (35-45) mm/Hg pO2 (80-100) mm/Hg HCO3 (21-28) mmol/L ABG pH (7.35-7.45) ABG Total CO2 (22-28) mmol/L ABG O2 Saturation (95-98) % ABG Base Excess (-2.0-3.0) mmol/L ABG Hemoglobin (11.7-17.4) g/dL ABG Carboxyhemoglobin (0.5-1.5) % POC ABG HHb (Measured) (0.0-5.0) % ABG Methemoglobin (0.0-3.0) % Michele Test ABG Potassium (3.6-5.2) mmol/L A-a O2 Difference mm/Hg Respiratory Index Hgb O2 Saturation (95.0-98.0) % Glucose (65-105) mg/dl Lactate (0.7-2.1) mmol/L Vent Mode Mechanical Rate FiO2 % Tidal Volume PEEP Crit Value Called To Crit Value Called By Crit Value Read Back Blood Gas Notified Time Sodium (132-148) mmol/L Potassium (3.6-5.2) mmol/L Chloride (98-107) mmol/L Carbon Dioxide (22-30) mmol/L Anion Gap (10-20) BUN (7-17) mg/dL Creatinine (0.7-1.2) mg/dL Est GFR ( Amer) Est GFR (Non-Af Amer) POC Glucose (mg/dL) 151 H 174 H 161 H (65-110) mg/dL Random Glucose (65-105) mg/dL Calcium (8.6-10.4) mg/dl Phosphorus (2.5-4.5) mg/dL Magnesium (1.6-2.3) mg/dL Total Bilirubin (0.2-1.3) mg/dL AST (14-36) U/L ALT (9-52) U/L Alkaline Phosphatase (38-126) U/L Total Protein (6.3-8.3) g/dL Albumin (3.5-5.0) g/dL Globulin (2.2-3.9) gm/dL Albumin/Globulin Ratio (1.0-2.1) Vitamin B12 (239-931) pg/mL Folate ng/mL Arterial Blood Potassium (3.6-5.2) mmol/L 03/08/18 03/08/18 Range/Units 11:24 05:59 WBC (4.8-10.8) K/uL RBC (3.80-5.20) Mil/uL Hgb (11.0-16.0) g/dL Hct (34.0-47.0) % MCV (81.0-99.0) fL MCH (27.0-31.0) pg MCHC (33.0-37.0) g/dL RDW (11.5-14.5) % Plt Count (130-400) K/uL MPV (7.2-11.7) fL Neut % (Auto) (50.0-75.0) % Lymph % (Auto) (20.0-40.0) % [place] % (Auto) (0.0-10.0) % Eos % (Auto) (0.0-4.0) % Baso % (Auto) (0.0-2.0) % Neut # (Auto) (1.8-7.0) K/uL Lymph # (Auto) (1.0-4.3) K/uL [place] # (Auto) (0.0-0.8) K/uL Eos # (Auto) (0.0-0.7) K/uL Baso # (Auto) (0.0-0.2) K/uL Smear Path Review Retic Count (0.5-1.5) % PT (9.7-12.2) SECONDS INR APTT (21-34) SECONDS Fibrinogen (200-400) mg/dL Puncture Site pCO2 (35-45) mm/Hg pO2 (80-100) mm/Hg HCO3 (21-28) mmol/L ABG pH (7.35-7.45) ABG Total CO2 (22-28) mmol/L ABG O2 Saturation (95-98) % ABG Base Excess (-2.0-3.0) mmol/L ABG Hemoglobin (11.7-17.4) g/dL ABG Carboxyhemoglobin (0.5-1.5) % POC ABG HHb (Measured) (0.0-5.0) % ABG Methemoglobin (0.0-3.0) % Michele Test ABG Potassium (3.6-5.2) mmol/L A-a O2 Difference mm/Hg Respiratory Index Hgb O2 Saturation (95.0-98.0) % Glucose (65-105) mg/dl Lactate (0.7-2.1) mmol/L Vent Mode Mechanical Rate FiO2 % Tidal Volume PEEP Crit Value Called To Crit Value Called By Crit Value Read Back Blood Gas Notified Time Sodium (132-148) mmol/L Potassium (3.6-5.2) mmol/L Chloride (98-107) mmol/L Carbon Dioxide (22-30) mmol/L Anion Gap (10-20) BUN (7-17) mg/dL Creatinine (0.7-1.2) mg/dL Est GFR ( Amer) Est GFR (Non-Af Amer) POC Glucose (mg/dL) 156 H (65-110) mg/dL Random Glucose (65-105) mg/dL Calcium (8.6-10.4) mg/dl Phosphorus (2.5-4.5) mg/dL Magnesium (1.6-2.3) mg/dL Total Bilirubin (0.2-1.3) mg/dL AST (14-36) U/L ALT (9-52) U/L Alkaline Phosphatase (38-126) U/L Total Protein (6.3-8.3) g/dL Albumin (3.5-5.0) g/dL Globulin (2.2-3.9) gm/dL Albumin/Globulin Ratio (1.0-2.1) Vitamin B12 (239-931) pg/mL Folate ng/mL Arterial Blood Potassium (3.6-5.2) mmol/L Laboratory Results - last 24 hr 03/08/18 03/08/18 03/08/18 05:59 11:24 17:44 WBC RBC Hgb Hct MCV MCH MCHC RDW Plt Count MPV Neut % (Auto) Lymph % (Auto) [place] % (Auto) Eos % (Auto) Baso % (Auto) Neut # (Auto) Lymph # (Auto) [place] # (Auto) Eos # (Auto) Baso # (Auto) Smear Path Review Retic Count PT INR APTT Fibrinogen Puncture Site pCO2 pO2 HCO3 ABG pH ABG Total CO2 ABG O2 Saturation ABG Base Excess ABG Hemoglobin ABG Carboxyhemoglobin POC ABG HHb (Measured) ABG Methemoglobin Michele Test ABG Potassium A-a O2 Difference Respiratory Index Hgb O2 Saturation Glucose Lactate Vent Mode Mechanical Rate FiO2 Tidal Volume PEEP Crit Value Called To Crit Value Called By Crit Value Read Back Blood Gas Notified Time Sodium Potassium Chloride Carbon Dioxide Anion Gap BUN Creatinine Est GFR ( Amer) Est GFR (Non-Af Amer) POC Glucose (mg/dL) 156 H 161 H Random Glucose Calcium Phosphorus Magnesium Total Bilirubin AST ALT Alkaline Phosphatase Total Protein Albumin Globulin Albumin/Globulin Ratio Vitamin B12 Folate Arterial Blood Potassium 03/09/18 03/09/18 03/09/18 00:43 11:05 17:51 WBC RBC Hgb Hct MCV MCH MCHC RDW Plt Count MPV Neut % (Auto) Lymph % (Auto) [place] % (Auto) Eos % (Auto) Baso % (Auto) Neut # (Auto) Lymph # (Auto) [place] # (Auto) Eos # (Auto) Baso # (Auto) Smear Path Review Retic Count PT INR APTT Fibrinogen Puncture Site pCO2 pO2 HCO3 ABG pH ABG Total CO2 ABG O2 Saturation ABG Base Excess ABG Hemoglobin ABG Carboxyhemoglobin POC ABG HHb (Measured) ABG Methemoglobin Michele Test ABG Potassium A-a O2 Difference Respiratory Index Hgb O2 Saturation Glucose Lactate Vent Mode Mechanical Rate FiO2 Tidal Volume PEEP Crit Value Called To Crit Value Called By Crit Value Read Back Blood Gas Notified Time Sodium Potassium Chloride Carbon Dioxide Anion Gap BUN Creatinine Est GFR ( Amer) Est GFR (Non-Af Amer) POC Glucose (mg/dL) 174 H 151 H 127 H Random Glucose Calcium Phosphorus Magnesium Total Bilirubin AST ALT Alkaline Phosphatase Total Protein Albumin Globulin Albumin/Globulin Ratio Vitamin B12 Folate Arterial Blood Potassium 03/09/18 03/09/18 03/09/18 20:40 20:40 22:10 WBC 8.4 RBC 3.30 L Hgb 10.4 L Hct 30.5 L MCV 92.5 MCH 31.5 H MCHC 34.0 RDW 16.5 H Plt Count 183 MPV 8.7 Neut % (Auto) 80.3 H Lymph % (Auto) 16.1 L [place] % (Auto) 0.3 Eos % (Auto) 2.9 Baso % (Auto) 0.4 Neut # (Auto) 6.8 Lymph # (Auto) 1.4 [place] # (Auto) 0.0 Eos # (Auto) 0.2 Baso # (Auto) 0.0 Smear Path Review Retic Count PT INR APTT Fibrinogen Puncture Site Rra pCO2 34 L pO2 76 L HCO3 25.4 ABG pH 7.46 H ABG Total CO2 25.2 ABG O2 Saturation 98.1 H ABG Base Excess 0.6 ABG Hemoglobin 10.0 L ABG Carboxyhemoglobin 1.9 H POC ABG HHb (Measured) 1.8 ABG Methemoglobin 1.1 Michele Test Na ABG Potassium A-a O2 Difference 309.0 Respiratory Index 4.1 Hgb O2 Saturation 95.2 Glucose Lactate Vent Mode Prvc Mechanical Rate 16 FiO2 60.0 Tidal Volume 450 PEEP 5 Crit Value Called To Crit Value Called By Crit Value Read Back Blood Gas Notified Time Sodium 142 Potassium 2.6 L Chloride 105 Carbon Dioxide 24 Anion Gap 15 BUN 30 H Creatinine 0.8 Est GFR ( Amer) > 60 Est GFR (Non-Af Amer) > 60 POC Glucose (mg/dL) Random Glucose 122 H Calcium 6.3 L Phosphorus 2.9 Magnesium 1.6 Total Bilirubin 5.2 H AST 66 H D ALT 87 H Alkaline Phosphatase 80 Total Protein 4.7 L Albumin 2.5 L Globulin 2.2 Albumin/Globulin Ratio 1.2 Vitamin B12 Folate Arterial Blood Potassium 03/09/18 03/10/18 03/10/18 23:38 05:21 05:37 WBC RBC Hgb Hct MCV MCH MCHC RDW Plt Count MPV Neut % (Auto) Lymph % (Auto) [place] % (Auto) Eos % (Auto) Baso % (Auto) Neut # (Auto) Lymph # (Auto) [place] # (Auto) Eos # (Auto) Baso # (Auto) Smear Path Review Retic Count PT INR APTT Fibrinogen Puncture Site R rad pCO2 34 L pO2 64 L HCO3 26.0 ABG pH 7.47 H ABG Total CO2 25.7 ABG O2 Saturation 96.8 ABG Base Excess 1.5 ABG Hemoglobin ABG Carboxyhemoglobin POC ABG HHb (Measured) ABG Methemoglobin Michele Test Pos ABG Potassium 3.4 L A-a O2 Difference 321.0 Respiratory Index 5.0 Hgb O2 Saturation Glucose 94 Lactate 4.5 H* Vent Mode Prvc Mechanical Rate 16 FiO2 60.0 Tidal Volume 450 PEEP 5 Crit Value Called To Nereida ramos agriculture professor Crit Value Called By Tracey gibson rt Crit Value Read Back Y Blood Gas Notified Time 644 Sodium 143.0 Potassium Chloride 112.0 H Carbon Dioxide Anion Gap BUN Creatinine Est GFR ( Amer) Est GFR (Non-Af Amer) POC Glucose (mg/dL) 120 H 83 Random Glucose Calcium Phosphorus Magnesium Total Bilirubin AST ALT Alkaline Phosphatase Total Protein Albumin Globulin Albumin/Globulin Ratio Vitamin B12 Folate Arterial Blood Potassium 3.4 L 03/10/18 03/10/18 03/10/18 06:55 06:55 06:55 WBC 8.7 RBC 3.40 L Hgb 10.6 L Hct 31.4 L MCV 92.6 MCH 31.1 H MCHC 33.6 RDW 16.7 H Plt Count 172 MPV 9.1 Neut % (Auto) 75.9 H Lymph % (Auto) 17.9 L [place] % (Auto) 1.1 Eos % (Auto) 4.8 H Baso % (Auto) 0.3 Neut # (Auto) 6.6 Lymph # (Auto) 1.6 [place] # (Auto) 0.1 Eos # (Auto) 0.4 Baso # (Auto) 0.0 Smear Path Review Retic Count 1.5 PT INR APTT Fibrinogen Puncture Site pCO2 pO2 HCO3 ABG pH ABG Total CO2 ABG O2 Saturation ABG Base Excess ABG Hemoglobin ABG Carboxyhemoglobin POC ABG HHb (Measured) ABG Methemoglobin Michele Test ABG Potassium A-a O2 Difference Respiratory Index Hgb O2 Saturation Glucose Lactate Vent Mode Mechanical Rate FiO2 Tidal Volume PEEP Crit Value Called To Crit Value Called By Crit Value Read Back Blood Gas Notified Time Sodium 142 Potassium 3.7 Chloride 108 H Carbon Dioxide 23 Anion Gap 15 BUN 34 H Creatinine 0.9 Est GFR ( Amer) > 60 Est GFR (Non-Af Amer) > 60 POC Glucose (mg/dL) Random Glucose 91 Calcium 6.5 L Phosphorus 2.8 Magnesium 2.1 Total Bilirubin 5.0 H AST 65 H ALT 75 H Alkaline Phosphatase 96 Total Protein 4.6 L Albumin 2.4 L Globulin 2.2 Albumin/Globulin Ratio 1.1 Vitamin B12 > 1000 H Folate > 20.0 Arterial Blood Potassium 03/10/18 03/10/18 06:55 11:44 WBC RBC Hgb Hct MCV MCH MCHC RDW Plt Count MPV Neut % (Auto) Lymph % (Auto) [place] % (Auto) Eos % (Auto) Baso % (Auto) Neut # (Auto) Lymph # (Auto) [place] # (Auto) Eos # (Auto) Baso # (Auto) Smear Path Review Retic Count PT 19.0 H INR 1.7 APTT 54 H Fibrinogen 373 Puncture Site pCO2 pO2 HCO3 ABG pH ABG Total CO2 ABG O2 Saturation ABG Base Excess ABG Hemoglobin ABG Carboxyhemoglobin POC ABG HHb (Measured) ABG Methemoglobin Michele Test ABG Potassium A-a O2 Difference Respiratory Index Hgb O2 Saturation Glucose Lactate Vent Mode Mechanical Rate FiO2 Tidal Volume PEEP Crit Value Called To Crit Value Called By Crit Value Read Back Blood Gas Notified Time Sodium Potassium Chloride Carbon Dioxide Anion Gap BUN Creatinine Est GFR ( Amer) Est GFR (Non-Af Amer) POC Glucose (mg/dL) 78 Random Glucose Calcium Phosphorus Magnesium Total Bilirubin AST ALT Alkaline Phosphatase Total Protein Albumin Globulin Albumin/Globulin Ratio Vitamin B12 Folate Arterial Blood Potassium Fingerstick Blood Sugar Results: 83 Review of Systems - Review of Systems Systems not reviewed;Unavailable: Acuity of Condition Critical Care Progress Note - Nutrition Nutrition: Nutrition Category Date Time Status NPO Diet [DIET] Diets 03/06/18 Breakfast Active Assessment/Plan - Assessment and Plan (Free Text) Assessment: Patient is an 82 yo female with a 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 She has been in a long-term for approximately 2 months. She presented to ED today with nausea, vomiting, abdominal pain, and lethargy. CT A/P demonstrated ischemic bowel, occulded SMA, Hepatic Infarct, Renal Infarct and free air Plan: Neuro: - Sedated on Fentanyl @ 2 - Sedated on Propafol @ 5 - Monitor mental status CV: - Vasopressin @ .04 - Levophed @ 4 - Monitor vitals Pulm: - Trach culture pos Klebsiella - IV Merrem - Maintain spO2>92% - PRVC Vent GI: - CT A/P: ischemis small bowel, extensive pneumatosis intestinalis, mesenteric venous gas, intrahepatic portal venous gas, ascites - GI consulted (Patricia) - Surgery consulted (Fortino)- not candidate for sx intervention at this time. Renal: - I's & O's - Replete electrolytes PRN Endo: - Maintain euglycemia - Hypoglycemia protocol Heme: - Monitor H&H - Monitor PT/INR/PTT - Hem/onc consulted (Pritesh) ID: Septic shock - leukocytosis resolved - IV Merrem PPx: VTE: holding heparin drip GI:PTx IVP
--- NOTE | 2018-03-10 12:51 | CP.PCM.CON ---
History of Present Illness - History of Present Illness History of Present Illness: Palliative consult requested by Mini NUNN for goals of care discussion Patient is a 82 o lady admitted from home [place] where she was for LICHA after abdominal surgery. Patient complained of abdominal pain, nausea and vomiting. 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 Per daughter, patient was doing fine until the day of admission when her abdomen swell up. CT abdomen upon admission was concerning for ischemic bowel. Doctor Fortino was called on surgical consult. Patient had exploratory surgery without further preceding due to patient's poor clinical condition. Today, during ICU rounds it was decided that patient needed to be re -evaluated for surgery. New Ct abdomen ordered. During this hospital stay patient developed acute respiratory distress and needed to be intubated and on MV support. There was significant electrolyte imbalance especially K, which was replaced. PMH: DM, HTN, severe dementia, intrahepatic BD carcinoma, S/P whipple procedure Soc. Hx: , son Darvin involved in care Fam. Hx: Unknown Review of Systems - Review of Systems All systems: reviewed and no additional remarkable complaints except Review of Systems: ROS unobtainable from patient due to intubation. ROS obtained from ICU rounds. Patient had Fever of 1020 over night. Merrem IV on board Past Patient History - Infectious Disease Hx of Infectious Diseases: C.diff - Past Medical History & Family History Past Medical History?: Yes - Past Social History Smoking Status: Former Smoker Chewing Tobacco Use: No Cigar Use: No Alcohol: None Drugs: Denies Home Situation {Lives}: Residential - CARDIAC Hx Hypertension: Yes - PULMONARY Hx Respiratory Disorders: Yes (DYSPNEA ON EXERTION) - NEUROLOGICAL Hx Dementia: Yes - HEENT Hx HEENT Problems: Yes Hx Cataracts: Yes - RENAL Hx Chronic Kidney Disease: No - ENDOCRINE/METABOLIC Hx Hypothyroidism: Yes - HEMATOLOGICAL/ONCOLOGICAL Hx Blood Disorders: Yes Hx Cancer: Yes (Intrahepatic bile duct carcinoma) - INTEGUMENTARY Hx Dermatological Problems: No - MUSCULOSKELETAL/RHEUMATOLOGICAL Hx Falls: No - GASTROINTESTINAL Hx Pancreatitis: Yes - GENITOURINARY/GYNECOLOGICAL Hx Genitourinary Disorders: No - PSYCHIATRIC Hx Substance Use: No - SURGICAL HISTORY Hx Cholecystectomy: Yes - ANESTHESIA Hx Anesthesia: Yes Hx Anesthesia Reactions: No Hx Malignant Hyperthermia: No Meds Allergies/Adverse Reactions: Allergies Allergy/AdvReac Type Severity Reaction Status Date / Time aspirin Allergy Intermediate SHORTNESS Verified 06/02/15 10:12 OF BREATH honey AdvReac SHORTNESS Verified 03/07/18 09:25 OF BREATH honey AdvReac SHORTNESS Uncoded 03/07/18 09:25 OF BREATH - Medications Medications: Current Medications Dextrose (Dextrose 50% Inj) 0 ml IV STAT PRN; Protocol PRN Reason: Hypoglycemia Protocol Dextrose (Glutose 15) 0 gm PO ONCE PRN; Protocol PRN Reason: Hypoglycemia Protocol Glucagon (Glucagen Diagnostic Kit) 0 mg IM STAT PRN; Protocol PRN Reason: Hypoglycemia Protocol Dextrose (Dextrose 5% In Water 1000 Ml) 1,000 mls @ 0 mls/hr IV .Q0M PRN; Protocol PRN Reason: Hypoglycemia Protocol Heparin Sodium/Sodium Chloride (Heparin 51805 Units/250ml 1/2 Normal Saline) 25,000 units in 250 mls @ 9.253 mls/hr IV .Q24H PRN; Protocol PRN Reason: PROTOCOL Last Titration: 03/10/18 09:35 Dose: 6 units/kg/hr, 4.627 mls/hr Fentanyl Citrate 2,500 mcg/ (Sodium Chloride) 250 mls @ 15.42 mls/hr IV .[id number] PRN; Protocol Last Admin: 03/10/18 03:41 Dose: 3 mcg/kg/hr, 23.13 mls/hr Meropenem 1 gm/ Sodium (Chloride) 100 mls @ 100 mls/hr IVPB Q8H [facility]; Protocol Last Admin: 03/10/18 06:34 Dose: 100 mls/hr Propofol (Diprivan) 1,000 mg in 100 mls @ 2.4 mls/hr IV .Q24H PRN; Protocol PRN Reason: TITRATE PER MD ORDER Last Titration: 03/10/18 12:09 Dose: 18 mcg/kg/min, 8.64 mls/hr Sodium Chloride (Sodium Chloride 0.9%) 1,000 mls @ 100 mls/hr IV .Q10H [facility] Last Admin: 03/10/18 12:07 Dose: 100 mls/hr Furosemide 100 mg/ Sodium (Chloride) 100 mls @ 5 mls/hr IV .Q20H [facility] Norepinephrine Bitartrate 4 mg (/ Sodium Chloride) 250 mls @ 15 mls/hr IV .[id number] PRN; Protocol PRN Reason: TITRATE PER MD ORDER Insulin Aspart (Novolog) 0 unit SC Q6H [facility]; Protocol Last Admin: 03/10/18 12:06 Dose: Not Given Pantoprazole Sodium (Protonix Inj) 40 mg IVP Q12H [facility] Last Admin: 03/10/18 09:28 Dose: 40 mg Physical Exam - Constitutional Appears: In Acute Distress, Chronically Ill - Head Exam Head Exam: ATRAUMATIC, NORMAL INSPECTION, NORMOCEPHALIC - Eye Exam Eye Exam: EOMI, Normal appearance, PERRL Pupil Exam: NORMAL ACCOMODATION, PERRL - ENT Exam ENT Exam: Mucous Membranes Moist, Normal Exam - Neck Exam Neck exam: Positive for: Normal Inspection - Respiratory Exam Additional comments: On MV support - Cardiovascular Exam Additional comments: Hypotension on Vasopressin - GI/Abdominal Exam GI & Abdominal Exam: Diminished Bowel Sounds, Distended - Rectal Exam Rectal Exam: Deferred - Exam Additional comments: Tran at bed side - Extremities Exam Extremities exam: Positive for: pedal edema - Back Exam Back exam: NORMAL INSPECTION - Neurological Exam Neurological exam: Motor Sensory Deficit - Psychiatric Exam Psychiatric exam: Flat Affect - Skin Skin Exam: Diaphoretic, Mottled, Pallor Results - Vital Signs Recent Vital Signs: Last Vital Signs Temp 98.5 F 03/10/18 12:00 Pulse 63 03/10/18 12:31 Resp 16 03/10/18 12:31 BP 88/34 L 03/10/18 12:31 Pulse Ox 97 03/10/18 12:31 - Labs Result Diagrams: 03/11/18 04:15 03/11/18 04:15 Labs: Laboratory Results - last 24 hr 03/08/18 03/08/18 03/08/18 05:59 11:24 17:44 WBC RBC Hgb Hct MCV MCH MCHC RDW Plt Count MPV Neut % (Auto) Lymph % (Auto) [place] % (Auto) Eos % (Auto) Baso % (Auto) Neut # (Auto) Lymph # (Auto) [place] # (Auto) Eos # (Auto) Baso # (Auto) Smear Path Review Retic Count PT INR APTT Fibrinogen Puncture Site pCO2 pO2 HCO3 ABG pH ABG Total CO2 ABG O2 Saturation ABG Base Excess ABG Hemoglobin ABG Carboxyhemoglobin POC ABG HHb (Measured) ABG Methemoglobin Michele Test ABG Potassium A-a O2 Difference Respiratory Index Hgb O2 Saturation Glucose Lactate Vent Mode Mechanical Rate FiO2 Tidal Volume PEEP Crit Value Called To Crit Value Called By Crit Value Read Back Blood Gas Notified Time Sodium Potassium Chloride Carbon Dioxide Anion Gap BUN Creatinine Est GFR ( Amer) Est GFR (Non-Af Amer) POC Glucose (mg/dL) 156 H 161 H Random Glucose Calcium Phosphorus Magnesium Total Bilirubin AST ALT Alkaline Phosphatase Total Protein Albumin Globulin Albumin/Globulin Ratio Vitamin B12 Folate Arterial Blood Potassium 03/09/18 03/09/18 03/09/18 00:43 11:05 17:51 WBC RBC Hgb Hct MCV MCH MCHC RDW Plt Count MPV Neut % (Auto) Lymph % (Auto) [place] % (Auto) Eos % (Auto) Baso % (Auto) Neut # (Auto) Lymph # (Auto) [place] # (Auto) Eos # (Auto) Baso # (Auto) Smear Path Review Retic Count PT INR APTT Fibrinogen Puncture Site pCO2 pO2 HCO3 ABG pH ABG Total CO2 ABG O2 Saturation ABG Base Excess ABG Hemoglobin ABG Carboxyhemoglobin POC ABG HHb (Measured) ABG Methemoglobin Michele Test ABG Potassium A-a O2 Difference Respiratory Index Hgb O2 Saturation Glucose Lactate Vent Mode Mechanical Rate FiO2 Tidal Volume PEEP Crit Value Called To Crit Value Called By Crit Value Read Back Blood Gas Notified Time Sodium Potassium Chloride Carbon Dioxide Anion Gap BUN Creatinine Est GFR ( Amer) Est GFR (Non-Af Amer) POC Glucose (mg/dL) 174 H 151 H 127 H Random Glucose Calcium Phosphorus Magnesium Total Bilirubin AST ALT Alkaline Phosphatase Total Protein Albumin Globulin Albumin/Globulin Ratio Vitamin B12 Folate Arterial Blood Potassium 03/09/18 03/09/18 03/09/18 20:40 20:40 22:10 WBC 8.4 RBC 3.30 L Hgb 10.4 L Hct 30.5 L MCV 92.5 MCH 31.5 H MCHC 34.0 RDW 16.5 H Plt Count 183 MPV 8.7 Neut % (Auto) 80.3 H Lymph % (Auto) 16.1 L [place] % (Auto) 0.3 Eos % (Auto) 2.9 Baso % (Auto) 0.4 Neut # (Auto) 6.8 Lymph # (Auto) 1.4 [place] # (Auto) 0.0 Eos # (Auto) 0.2 Baso # (Auto) 0.0 Smear Path Review Retic Count PT INR APTT Fibrinogen Puncture Site Rra pCO2 34 L pO2 76 L HCO3 25.4 ABG pH 7.46 H ABG Total CO2 25.2 ABG O2 Saturation 98.1 H ABG Base Excess 0.6 ABG Hemoglobin 10.0 L ABG Carboxyhemoglobin 1.9 H POC ABG HHb (Measured) 1.8 ABG Methemoglobin 1.1 Michele Test Na ABG Potassium A-a O2 Difference 309.0 Respiratory Index 4.1 Hgb O2 Saturation 95.2 Glucose Lactate Vent Mode Prvc Mechanical Rate 16 FiO2 60.0 Tidal Volume 450 PEEP 5 Crit Value Called To Crit Value Called By Crit Value Read Back Blood Gas Notified Time Sodium 142 Potassium 2.6 L Chloride 105 Carbon Dioxide 24 Anion Gap 15 BUN 30 H Creatinine 0.8 Est GFR ( Amer) > 60 Est GFR (Non-Af Amer) > 60 POC Glucose (mg/dL) Random Glucose 122 H Calcium 6.3 L Phosphorus 2.9 Magnesium 1.6 Total Bilirubin 5.2 H AST 66 H D ALT 87 H Alkaline Phosphatase 80 Total Protein 4.7 L Albumin 2.5 L Globulin 2.2 Albumin/Globulin Ratio 1.2 Vitamin B12 Folate Arterial Blood Potassium 03/09/18 03/10/18 03/10/18 23:38 05:21 05:37 WBC RBC Hgb Hct MCV MCH MCHC RDW Plt Count MPV Neut % (Auto) Lymph % (Auto) [place] % (Auto) Eos % (Auto) Baso % (Auto) Neut # (Auto) Lymph # (Auto) [place] # (Auto) Eos # (Auto) Baso # (Auto) Smear Path Review Retic Count PT INR APTT Fibrinogen Puncture Site R rad pCO2 34 L pO2 64 L HCO3 26.0 ABG pH 7.47 H ABG Total CO2 25.7 ABG O2 Saturation 96.8 ABG Base Excess 1.5 ABG Hemoglobin ABG Carboxyhemoglobin POC ABG HHb (Measured) ABG Methemoglobin Michele Test Pos ABG Potassium 3.4 L A-a O2 Difference 321.0 Respiratory Index 5.0 Hgb O2 Saturation Glucose 94 Lactate 4.5 H* Vent Mode Prvc Mechanical Rate 16 FiO2 60.0 Tidal Volume 450 PEEP 5 Crit Value Called To Nereida ramos agricultural systems specialist Crit Value Called By Tracey gibson rt Crit Value Read Back Y Blood Gas Notified Time 644 Sodium 143.0 Potassium Chloride 112.0 H Carbon Dioxide Anion Gap BUN Creatinine Est GFR ( Amer) Est GFR (Non-Af Amer) POC Glucose (mg/dL) 120 H 83 Random Glucose Calcium Phosphorus Magnesium Total Bilirubin AST ALT Alkaline Phosphatase Total Protein Albumin Globulin Albumin/Globulin Ratio Vitamin B12 Folate Arterial Blood Potassium 3.4 L 03/10/18 03/10/18 03/10/18 06:55 06:55 06:55 WBC 8.7 RBC 3.40 L Hgb 10.6 L Hct 31.4 L MCV 92.6 MCH 31.1 H MCHC 33.6 RDW 16.7 H Plt Count 172 MPV 9.1 Neut % (Auto) 75.9 H Lymph % (Auto) 17.9 L [place] % (Auto) 1.1 Eos % (Auto) 4.8 H Baso % (Auto) 0.3 Neut # (Auto) 6.6 Lymph # (Auto) 1.6 [place] # (Auto) 0.1 Eos # (Auto) 0.4 Baso # (Auto) 0.0 Smear Path Review Retic Count 1.5 PT INR APTT Fibrinogen Puncture Site pCO2 pO2 HCO3 ABG pH ABG Total CO2 ABG O2 Saturation ABG Base Excess ABG Hemoglobin ABG Carboxyhemoglobin POC ABG HHb (Measured) ABG Methemoglobin Michele Test ABG Potassium A-a O2 Difference Respiratory Index Hgb O2 Saturation Glucose Lactate Vent Mode Mechanical Rate FiO2 Tidal Volume PEEP Crit Value Called To Crit Value Called By Crit Value Read Back Blood Gas Notified Time Sodium 142 Potassium 3.7 Chloride 108 H Carbon Dioxide 23 Anion Gap 15 BUN 34 H Creatinine 0.9 Est GFR ( Amer) > 60 Est GFR (Non-Af Amer) > 60 POC Glucose (mg/dL) Random Glucose 91 Calcium 6.5 L Phosphorus 2.8 Magnesium 2.1 Total Bilirubin 5.0 H AST 65 H ALT 75 H Alkaline Phosphatase 96 Total Protein 4.6 L Albumin 2.4 L Globulin 2.2 Albumin/Globulin Ratio 1.1 Vitamin B12 > 1000 H Folate > 20.0 Arterial Blood Potassium 03/10/18 03/10/18 06:55 11:44 WBC RBC Hgb Hct MCV MCH MCHC RDW Plt Count MPV Neut % (Auto) Lymph % (Auto) [place] % (Auto) Eos % (Auto) Baso % (Auto) Neut # (Auto) Lymph # (Auto) [place] # (Auto) Eos # (Auto) Baso # (Auto) Smear Path Review Retic Count PT 19.0 H INR 1.7 APTT 54 H Fibrinogen 373 Puncture Site pCO2 pO2 HCO3 ABG pH ABG Total CO2 ABG O2 Saturation ABG Base Excess ABG Hemoglobin ABG Carboxyhemoglobin POC ABG HHb (Measured) ABG Methemoglobin Michele Test ABG Potassium A-a O2 Difference Respiratory Index Hgb O2 Saturation Glucose Lactate Vent Mode Mechanical Rate FiO2 Tidal Volume PEEP Crit Value Called To Crit Value Called By Crit Value Read Back Blood Gas Notified Time Sodium Potassium Chloride Carbon Dioxide Anion Gap BUN Creatinine Est GFR ( Amer) Est GFR (Non-Af Amer) POC Glucose (mg/dL) 78 Random Glucose Calcium Phosphorus Magnesium Total Bilirubin AST ALT Alkaline Phosphatase Total Protein Albumin Globulin Albumin/Globulin Ratio Vitamin B12 Folate Arterial Blood Potassium Assessment & Plan - Assessment and Plan (Free Text) Assessment: Palliative consult FULL CODE, there is no Advance Directive on chart, PPS 10% I reviewed Medical records, all diagnostic studies, examined patient in the bed. Patient is intubated, sedated, unresponsive to verbal/ tactile stimuli. Breathing supported by MV. Skin is pale, Hb 10.6. Abdomen is large, with builky dressing and jejunostomy tube to left quadrant. Tran cath at bed side, urine output low, Lasix IV on board to promote diuresis. There is no spontaneous movement of upper/lower extremities. BP 108/42, NaCl 0.9% on board at 100 cc/hr. Patient's daughter at bed side. She is only Brazilian speaking. I spoke to patient's son over the phone. he said was coming at 1 pm to further discuss goals of care . Met with patient's son Darvin this morning as I could not get held of him last night. I reviewed patient's clinical presentation and all interventions provided and elicited his understanding and expectations. Darvin stated being very involved with his mother's care since the original Sx in October. His father is a Doctor in [place] and Darvin has been in touch with him all along to discuss condition of his mother( they have been for a long time). Darvin admits seeing his mother decline over time but is still having a hope that after the next surgery with Doctor Asad, she may slowly recover. I reviewed the Pressors we were giving to support BP and support from MV. Darvin wanted all neccassary measures to be applied to support his mother's life. he feels that still there are interventions that could be applied to support his mother's condition. I reassured him of all necessary measures being in place. Impression * S/P Whipple procedure in October for intrahepatic BD cancer * Distended abdomen and abdominal pain * Respiratory distress requiring MV support * Ischemic bowel * Family is hoping for recovery and requesting Full Code * Another Surgery with Doctor Kamara today Suggestions * Continue all aggressive measures to support life including Pressors * Further goals of care to be discussed based on patient's condition after today's Sx * Full Code palliative care will continue to provide support to the family. Advance care planing 30 min
--- NOTE | 2018-03-10 16:58 | RAD ---
Date of service: 03/10/2018 HISTORY: TLC insertion COMPARISON: March 10, 2018. Study performed 06:57. FINDINGS: LUNGS: Improving pulmonary edema/multifocal infiltrates. PLEURA: No change CARDIOVASCULAR: Atherosclerotic calcifications identified primarily aortic arch. Venous access catheter in satisfactory position. OSSEOUS STRUCTURES: No significant abnormalities. VISUALIZED UPPER ABDOMEN: Normal. OTHER FINDINGS: Stable position of endotracheal tube. IMPRESSION: Improving pulmonary edema. Satisfactory position of recently placed venous access catheter right internal jugular approach. No pneumothorax identified.
[2018-03-10] MEDS: Furosemide 100 MG in Sodium Chloride 0.9% 90 ML IV SCH (17:21)
--- NOTE | 2018-03-10 18:15 | CP.PCM.PN ---
Subjective - Date & Time of Evaluation Date of Evaluation: 03/10/18 Time of Evaluation: 12:30 - Subjective Subjective: clinically same Objective - Vital Signs/Intake and Output Vital Signs (last 24 hours): Temp Pulse Resp BP Pulse Ox 98.5 F 85 17 123/63 95 03/10/18 12:00 03/10/18 13:32 03/10/18 13:32 03/10/18 17:21 03/10/18 13:32 Intake and Output: 03/10/18 03/10/18 06:59 18:59 Intake Total 3333.2 1624.3 Output Total 255 70 Balance 3078.2 1554.3 - Medications Medications: Current Medications Dextrose (Dextrose 50% Inj) 0 ml IV STAT PRN; Protocol PRN Reason: Hypoglycemia Protocol Dextrose (Glutose 15) 0 gm PO ONCE PRN; Protocol PRN Reason: Hypoglycemia Protocol Glucagon (Glucagen Diagnostic Kit) 0 mg IM STAT PRN; Protocol PRN Reason: Hypoglycemia Protocol Dextrose (Dextrose 5% In Water 1000 Ml) 1,000 mls @ 0 mls/hr IV .Q0M PRN; Protocol PRN Reason: Hypoglycemia Protocol Heparin Sodium/Sodium Chloride (Heparin 47017 Units/250ml 1/2 Normal Saline) 25,000 units in 250 mls @ 9.253 mls/hr IV .Q24H PRN; Protocol PRN Reason: PROTOCOL Last Titration: 03/10/18 15:34 Dose: 5.96 units/kg/hr, 4.6 mls/hr Fentanyl Citrate 2,500 mcg/ (Sodium Chloride) 250 mls @ 15.42 mls/hr IV .[id number] PRN; Protocol Last Admin: 03/10/18 15:11 Dose: 3 mcg/kg/hr, 23.13 mls/hr Meropenem 1 gm/ Sodium (Chloride) 100 mls @ 100 mls/hr IVPB Q8H [facility]; Protocol Last Admin: 03/10/18 15:10 Dose: 100 mls/hr Propofol (Diprivan) 1,000 mg in 100 mls @ 2.4 mls/hr IV .Q24H PRN; Protocol PRN Reason: TITRATE PER MD ORDER Last Admin: 03/10/18 18:03 Dose: 18.75 mcg/kg/min, 9 mls/hr Furosemide 100 mg/ Sodium (Chloride) 100 mls @ 5 mls/hr IV .Q20H [facility] Last Admin: 03/10/18 17:21 Dose: 5 mls/hr Norepinephrine Bitartrate 4 mg (/ Sodium Chloride) 250 mls @ 15 mls/hr IV .[id number] PRN; Protocol PRN Reason: TITRATE PER MD ORDER Last Admin: 03/10/18 12:55 Dose: 10 mcg/min, 37.5 mls/hr Insulin Aspart (Novolog) 0 unit SC Q6H [facility]; Protocol Last Admin: 03/10/18 12:06 Dose: Not Given Pantoprazole Sodium (Protonix Inj) 40 mg IVP Q12H [facility] Last Admin: 03/10/18 09:28 Dose: 40 mg - Labs Labs: 03/10/18 06:55 03/10/18 06:55 PT 19.0 SECONDS (9.7-12.2) H 03/10/18 06:55 INR 1.7 03/10/18 06:55 APTT 54 SECONDS (21-34) H 03/10/18 06:55 - Constitutional Appears: Well - Head Exam Head Exam: ATRAUMATIC, NORMAL INSPECTION, NORMOCEPHALIC - Eye Exam Eye Exam: EOMI, Normal appearance, PERRL Pupil Exam: NORMAL ACCOMODATION, PERRL - ENT Exam ENT Exam: Mucous Membranes Moist, Normal Exam - Neck Exam Neck Exam: Full ROM, Normal Inspection. absent: Lymphadenopathy - Respiratory Exam Respiratory Exam: Decreased Breath Sounds - Cardiovascular Exam Cardiovascular Exam: REGULAR RHYTHM, +S1, +S2 - GI/Abdominal Exam GI & Abdominal Exam: Soft, Diminished Bowel Sounds - Rectal Exam Rectal Exam: Deferred
--- NOTE | 2018-03-10 19:06 | CT ---
PROCEDURE: CT Abdomen and Pelvis without Oral or IV contrast. HISTORY: ischemic bowel COMPARISON: CT abdomen and pelvis without contrast performed 03/06/18, CTA abdomen and pelvis performed 03/07/18 TECHNIQUE: Contiguous axial images of the abdomen and pelvis. No oral or IV contrast administered. Coronal and Sagittal reformats generated and reviewed. Radiation dose: Total exam DLP = 3148.97 mGy-cm. This CT exam was performed using one or more of the following dose reduction techniques: Automated exposure control, adjustment of the mA and/or kV according to patient size, and/or use of iterative reconstruction technique. FINDINGS: There is limited evaluation of the solid organs without the administration of IV contrast. LOWER THORAX: Moderate bilateral pleural effusions and dependent consolidations. LIVER: Hypoattenuation of the liver compatible with hepatic steatosis. GALLBLADDER AND BILE DUCTS: Cholecystectomy. PANCREAS: Status post Whipple procedure. Absent pancreatic head. Linear metallic structure arising from the pancreatic body extending beyond the expected region the pancreatic head re-identified SPLEEN: Unremarkable unenhanced appearance. ADRENALS: 2.0 x 2.2 cm left adrenal gland mass measures approximately 4 HU consistent with an adenoma. The right adrenal gland appears unremarkable. KIDNEYS AND URETERS: No hydronephrosis or obstructing renal calculus. Hypodense region involving the right lower pole kidney consistent with a cyst. BLADDER: Tran catheter present within a decompressed urinary bladder. REPRODUCTIVE: Uterus is present. APPENDIX: None identified. BOWEL: Nasogastric tube. Partial gastrectomy related to Whipple surgery. Lack of oral contrast limits evaluation for bowel pathology. Small and large bowel wall thickening consistent with enteritis and colitis. PERITONEUM: Large abdominal ascites. Pneumoperitoneum/free air again seen, presumably related to recent surgery. LYMPH NODES: No bulky lymphadenopathy identified. VASCULATURE: Atherosclerotic calcifications of the aorta present. No aortic aneurysm. BONES: Osseous demineralization. Degenerative changes. OTHER FINDINGS: Surgical drainage catheter entering left lower anterior abdominal wall extending into the left lower pelvis. Interval progressive increase in extensive subcutaneous gas/air at the level of the right abdomen adjacent to surgical leyda. Findings favored to reflect subcutaneous emphysema. Correlate clinically in order to exclude possibility of infection. Anasarca. IMPRESSION: Small and large bowel wall thickening consistent with provided history of ischemic enteritis/colitis. Correlate clinically. Free intraperitoneal air likely due to recent surgery. Interval progressive increase in extensive subcutaneous gas/air at the level of the right abdomen adjacent to surgical leyda. Findings favored to reflect subcutaneous emphysema. Correlate clinically in order to exclude possibility of infection. Extensive anasarca. Moderate bilateral pleural effusions and dependent consolidations. Additional findings as above. Please note limitations of the study due to lack of oral and IV contrast.
[2018-03-10] MEDS: HYDROmorphone 0.5 mg/0.5 ml ISec IVP PRN (20:51)
[2018-03-10] MEDS: Vitamins A & D Oint UD Foilpak TOP PRN (21:44)
--- NOTE | 2018-03-10 22:30 | CP.PCM.PN ---
Subjective - Date & Time of Evaluation Date of Evaluation: 03/10/18 Time of Evaluation: 18:20 - Subjective Subjective: Vented Objective - Vital Signs/Intake and Output Vital Signs (last 24 hours): Temp Pulse Resp BP Pulse Ox 98.6 F 90 16 144/46 L 100 03/10/18 16:00 03/10/18 21:45 03/10/18 21:45 03/10/18 21:45 03/10/18 21:45 Intake and Output: 03/10/18 03/11/18 18:59 06:59 Intake Total 2116.2 327.3 Output Total 570 Balance 1546.2 327.3 - Medications Medications: Current Medications Dextrose (Dextrose 50% Inj) 0 ml IV STAT PRN; Protocol PRN Reason: Hypoglycemia Protocol Dextrose (Glutose 15) 0 gm PO ONCE PRN; Protocol PRN Reason: Hypoglycemia Protocol Glucagon (Glucagen Diagnostic Kit) 0 mg IM STAT PRN; Protocol PRN Reason: Hypoglycemia Protocol Hydromorphone HCl (Dilaudid) 0.25 mg IVP Q4H PRN PRN Reason: Pain, severe (8-10) Last Admin: 03/10/18 20:51 Dose: 0.25 mg Dextrose (Dextrose 5% In Water 1000 Ml) 1,000 mls @ 0 mls/hr IV .Q0M PRN; Protocol PRN Reason: Hypoglycemia Protocol Heparin Sodium/Sodium Chloride (Heparin 80260 Units/250ml 1/2 Normal Saline) 25,000 units in 250 mls @ 9.253 mls/hr IV .Q24H PRN; Protocol PRN Reason: PROTOCOL Last Titration: 03/10/18 22:23 Dose: 8 units/kg/hr, 6.169 mls/hr Fentanyl Citrate 2,500 mcg/ (Sodium Chloride) 250 mls @ 15.42 mls/hr IV .[id number] PRN; Protocol Last Admin: 03/10/18 15:11 Dose: 3 mcg/kg/hr, 23.13 mls/hr Meropenem 1 gm/ Sodium (Chloride) 100 mls @ 100 mls/hr IVPB Q8H [facility]; Protocol Last Admin: 03/10/18 15:10 Dose: 100 mls/hr Propofol (Diprivan) 1,000 mg in 100 mls @ 2.4 mls/hr IV .Q24H PRN; Protocol PRN Reason: TITRATE PER MD ORDER Last Admin: 03/10/18 18:03 Dose: 18.75 mcg/kg/min, 9 mls/hr Furosemide 100 mg/ Sodium (Chloride) 100 mls @ 5 mls/hr IV .Q20H [facility]PIT Last Admin: 03/10/18 17:21 Dose: 5 mls/hr Norepinephrine Bitartrate 4 mg (/ Sodium Chloride) 250 mls @ 15 mls/hr IV .[id number] PRN; Protocol PRN Reason: TITRATE PER MD ORDER Last Admin: 03/10/18 21:45 Dose: 10 mcg/min, 37.5 mls/hr Insulin Aspart (Novolog) 0 unit SC Q6H [facility]; Protocol Last Admin: 03/10/18 18:31 Dose: Not Given Pantoprazole Sodium (Protonix Inj) 40 mg IVP Q12H [facility] Last Admin: 03/10/18 21:44 Dose: 40 mg Vitamin A (Vitamin A & D Oint Ud Foilpak) 0.5 ea TOP Q4 PRN PRN Reason: Lip dryness Last Admin: 03/10/18 21:44 Dose: 0.5 ea - Labs Labs: 03/10/18 06:55 03/10/18 06:55 PT 19.0 SECONDS (9.7-12.2) H 03/10/18 06:55 INR 1.7 03/10/18 06:55 APTT 39 SECONDS (21-34) H D 03/10/18 21:26 - Head Exam Head Exam: ATRAUMATIC - Eye Exam Eye Exam: Normal appearance - ENT Exam ENT Exam: Mucous Membranes Dry - Respiratory Exam Respiratory Exam: NORMAL BREATHING PATTERN - Cardiovascular Exam Cardiovascular Exam: +S1, +S2 - GI/Abdominal Exam GI & Abdominal Exam: Normal Bowel Sounds Assessment and Plan (1) Anemia Assessment & Plan: anemia of chronic disease. 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
[2018-03-11] MEDS: (Novolog) Insulin Aspart, Recombinant 100 u/ml 10 ml vial SC SCH ×4 (00:12→18:24)
[2018-03-11] MEDS: HYDROmorphone 0.5 mg/0.5 ml ISec IVP PRN ×4 (01:01→23:57)
[2018-03-11] MEDS: Propofol 10 mg/ml 1,000 MG/100 ML VIAL IV PRN (03:02)
[2018-03-11] MEDS: Heparin25000 units/250ml 1/2NS 25,000 UNITS/250 ML BAG IV PRN (03:04)
[2018-03-11 04:28] LABS: INR 1.4; PROTHROMBIN TIME 15.7 SECONDS (9.7-12.2)
[2018-03-11 04:33] LABS: BASO % 0.1 % (0.0-2.0); EOS # 0.3 K/uL (0.0-0.7); EOS % 2.2 % (0.0-4.0); HEMOGLOBIN 11.2 g/dL (11.0-16.0); LYMPH # 1.4 K/uL (1.0-4.3); LYMPH % 12.1 % (20.0-40.0); MEAN CELL VOLUME 93.4 fL (81.0-99.0); MEAN CORPUSCULAR HGB CONC 33.2 g/dL (33.0-37.0); MEAN PLATELET VOLUME 9.5 fL (7.2-11.7); MONO # 0.2 K/uL (0.0-0.8); MONO % 1.3 % (0.0-10.0); NEUT % 84.3 % (50.0-75.0); NRBC % 0.2 % (0.0-2.0); RBC 3.6 Mil/uL (3.80-5.20); RED CELL DISTRIBUTION WIDTH 16.5 % (11.5-14.5); WHITE BLOOD COUNT 11.9 K/uL (4.8-10.8)
[2018-03-11 04:43] LABS: ALBUMIN 2.3 g/dL (3.5-5.0); ALT/SGPT 63 U/L (9-52); AST/SGOT 54 U/L (14-36); BLOOD UREA NITROGEN 34 mg/dL (7-17); CALCIUM 7.1 mg/dl (8.6-10.4); GFR NON-AFRICAN AMERICAN > 60
[2018-03-11 06:12] LABS: ABG ALLEN TEST POS; ARTERIAL BLOOD GAS HCO3 26.3 mmol/L (21-28); ARTERIAL BLOOD GAS O2 SAT 98.9 % (95-98); ARTERIAL BLOOD GAS PCO2 37 mm/Hg (35-45); ARTERIAL BLOOD GAS PH 7.45 (7.35-7.45); ARTERIAL BLOOD GAS PO2 89 mm/Hg (80-100); ARTERIAL BLOOD GAS TCO2 26.8 mmol/L (22-28)
[2018-03-11] MEDS: Vitamins A & D Oint UD Foilpak TOP PRN ×2 (06:30→23:26)
[2018-03-11] MEDS: Meropenem 1 GM in Sodium Chloride 0.9% 100 ML IVPB SCH ×3 (06:57→23:23)
[2018-03-11] MEDS: Furosemide 100 MG in Sodium Chloride 0.9% 90 ML IV SCH (06:59)
[2018-03-11] MEDS ORDERED: Phenylephrine 10 mg/ml Inj ONE (10:20)
[2018-03-11] MEDS ORDERED: Vasopressin 20 Units/ml Inj ONE (10:29)
[2018-03-11] MEDS ORDERED: ePHEDrine 50 mg/ml Inj ONE (10:33)
[2018-03-11] MEDS ORDERED: Rocuronium 10 mg/ml (5 ml) ONE (10:34)
--- NOTE | 2018-03-11 12:24 | PCM.SURG1 ---
Surgeon's Initial Post Op Note - Surgeon's Notes Surgeon: Dr. Freitas Equipment Worker: Dr. 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 Partial small bowel resection, left in discontinuity. Post-Operative Diagnosis: Same Operation Performed: Second Look Laparotomy with resection of partial necrotic small bowel Specimen/Specimens Removed: segment of small bowel Estimated Blood Loss: EBL {In ML}: 20 Blood Products Given: N/A Drains Used: No Drains Post-Op Condition: Critical Date of Surgery/Procedure: 03/11/18 Time of Surgery/Procedure: 12:24
--- NOTE | 2018-03-11 14:04 | RAD ---
Date of service: 03/11/2018 HISTORY: intubated COMPARISON: All Multiple serial examinations preceding the most recent study: March 10, 2018. FINDINGS: LUNGS: Stable pulmonary edema PLEURA: No significant interval change compared to the prior examination(s). CARDIOVASCULAR: Atherosclerotic calcifications identified primarily aortic arch. No significant interval change compared to the prior examination(s). OSSEOUS STRUCTURES: No significant abnormalities. VISUALIZED UPPER ABDOMEN: Normal. OTHER FINDINGS: None. IMPRESSION: Stable pulmonary edema. Stable, satisfactory position ventilatory, vascular and nasogastric apparatus.
--- NOTE | 2018-03-11 17:26 | CP.CCUPN ---
<Michael Tamayo - Last Filed: 03/11/18 17:22> CCU Subjective - Physician Review Events Since Last Encounter (Free Text): 03/11/18 17:22 No acute events overnight Subjective (Free Text): 03/11/18 17:23 PGY1 Critical Care Progress Note for Dr. Gallegos Patient was seen and evaluated at bedside this morning. Patient intubated. Today she is status post second Look Laparotomy with resection of partial necrotic small bowel with Dr. Freitas. Patient is currently on levophed. Patient unable to provide a 12 point ROS due to clinical condition. Critical Care Time Spent (in minutes): 35 CCU Objective - Vital Signs / Intake & Output Vital Signs (Last 4 hours): Vital Signs Temp Pulse Resp BP Pulse Ox 03/11/18 17:09 102/48 L 03/11/18 17:08 101 H 16 99 03/11/18 17:00 94 H 16 99 03/11/18 16:08 95 H 16 106/45 L 99 03/11/18 16:00 98.9 F 94 H 16 99 03/11/18 15:08 93 H 16 113/38 L 98 03/11/18 15:00 99 H 16 99 03/11/18 14:09 94 H 16 107/53 L 98 03/11/18 14:00 92 H 16 98 Intake and Output (Last 8hrs): Intake & Output 03/11/18 03/11/18 03/11/18 06:59 14:59 22:59 Intake Total 1186.2 1282.0 152.7 Output Total 655 565 90 Balance 531.2 717.0 62.7 Weight 210 lb 5.136 oz Intake: IV 135 350 Intake, IV Amount 1051.2 932.0 152.7 Left Wrist 49.6 Medial Port 66.4 33.2 Prox Port 210.4 154.0 6.5 Right Distal IJ 40 40 Right Distal Port 500 520 100 Internal Jugular Right Medial Port 184.8 184.8 46.2 Internal Jugular Tube Feeding 0 0 Output: Gastric Amount 120 Right 120 Drainage 20 LEFT JEJUNOSTOMY 20 Urine 515 565 90 Urethral (Tran) 515 340 90 Stool 0 0 Emesis 0 0 - Physical Exam Narrative Physical Exam (Free Text): 03/11/18 17:26 Patient intubated Head: Positive for: Atraumatic, Normocephalic Pupils: Positive for: PERRL Extroacular Muscles: Positive for: EOMI Respiratory/Chest: Positive for: Clear to Auscultation, Other (on vent, intubated) Cardiovascular: Positive for: Normal S1, S2. Negative for: Murmurs Abdomen: Positive for: Distention Upper Extremity: Positive for: Edema Lower Extremity: Positive for: Edema Neurological: Positive for: Other (sedated) Skin: Positive for: Warm, Normal Color - Medications Active Medications: Active Medications Generic Name Dose Route Start Last Admin Trade Name Freq PRN Reason Stop Dose Admin Dextrose 0 ml 03/06/18 15:02 03/11/18 00:13 Dextrose 50% Inj IV 50 ml STAT PRN Administration Hypoglycemia Protocol Protocol Dextrose 0 gm 03/06/18 15:02 Glutose 15 PO ONCE PRN Hypoglycemia Protocol Protocol Glucagon 0 mg 03/06/18 15:02 Glucagen Diagnostic Kit IM STAT PRN Hypoglycemia Protocol Protocol Hydromorphone HCl 0.25 mg 03/10/18 20:35 03/11/18 05:43 Dilaudid IVP 0.25 mg Q4H PRN Administration Pain, severe (8-10) Dextrose 1,000 mls @ 0 mls/hr 03/06/18 15:02 Dextrose 5% In Water 1000 Ml IV .Q0M PRN Hypoglycemia Protocol Protocol Per Protocol Meropenem 1 gm/ Sodium 100 mls @ 100 mls/hr 03/07/18 07:15 03/11/18 15:42 Chloride IVPB 100 mls/hr Q8H [facility] Administration Protocol Furosemide 100 mg/ Sodium 100 mls @ 5 mls/hr 03/10/18 10:15 03/11/18 06:59 Chloride IV Not Given .Q20H [facility] 5 MG/HR Norepinephrine Bitartrate 4 mg 250 mls @ 15 mls/hr 03/10/18 12:30 03/11/18 06:58 / Sodium Chloride IV 7 mcg/min .[id number] PRN 26.25 mls/hr TITRATE PER MD ORDER Administration Protocol 4 MCG/MIN Propofol 1,000 mg in 100 mls @ 10.733 mls/hr 03/10/18 23:16 03/11/18 03:02 Diprivan IV 14.5 mcg/kg/min .Q9H20M PRN 8.3 mls/hr TITRATE PER MD ORDER Administration Protocol 18.75 MCG/KG/MIN Fentanyl Citrate 2,500 mcg/ 250 mls @ 28.62 mls/hr 03/10/18 23:30 03/11/18 15:42 Sodium Chloride IV 2.42 mcg/kg/hr .Q8H45M [facility] 23.1 mls/hr Administration Protocol 3 MCG/KG/HR Heparin Sodium/Sodium Chloride 25,000 units in 250 mls @ 7.632 mls/hr 03/10/18 23:20 03/11/18 06:05 Heparin 60854 Units/250ml 1/2 Normal Saline IV 0 units/kg/hr .Q24H PRN 0 mls/hr ADJUST RATE PER PROTOCOL Titration Protocol 8 UNITS/KG/HR Dextrose 1,000 mls @ 60 mls/hr 03/11/18 00:45 03/11/18 00:57 Dextrose 5% In Water 1000 Ml IV 60 mls/hr .[id number] ARPIT Administration Insulin Aspart 0 unit 03/06/18 18:00 03/11/18 15:44 Novolog SC Not Given Q6H [facility] Protocol Pantoprazole Sodium 40 mg 03/07/18 10:00 03/11/18 09:16 Protonix Inj IVP 40 mg Q12H [facility] Administration Vitamin A 0.5 ea 03/10/18 20:33 03/11/18 06:30 Vitamin A & D Oint Ud Foilpak TOP 0.5 ea Q4 PRN Administration Lip dryness - Patient Studies Lab Studies: Microbiology Studies 03/06/18 13:17 Blood Culture - Final Blood NO GROWTH AFTER 5 DAYS Gram Stain - Final TEST NOT PERFORMED 03/06/18 13:17 Blood Culture - Final Blood NO GROWTH AFTER 5 DAYS Gram Stain - Final TEST NOT PERFORMED Lab Studies 03/11/18 03/11/18 03/11/18 Range/Units 06:48 05:46 04:15 WBC (4.8-10.8) K/uL RBC (3.80-5.20) Mil/uL Hgb (11.0-16.0) g/dL Hct (34.0-47.0) % MCV (81.0-99.0) fL MCH (27.0-31.0) pg MCHC (33.0-37.0) g/dL RDW (11.5-14.5) % Plt Count (130-400) K/uL MPV (7.2-11.7) fL Neut % (Auto) (50.0-75.0) % Lymph % (Auto) (20.0-40.0) % Schuyler % (Auto) (0.0-10.0) % Eos % (Auto) (0.0-4.0) % Baso % (Auto) (0.0-2.0) % Neut # (Auto) (1.8-7.0) K/uL Lymph # (Auto) (1.0-4.3) K/uL Schuyler # (Auto) (0.0-0.8) K/uL Eos # (Auto) (0.0-0.7) K/uL Baso # (Auto) (0.0-0.2) K/uL PT 15.7 H (9.7-12.2) SECONDS INR 1.4 APTT 43 H (21-34) SECONDS Puncture Site R rad pCO2 37 (35-45) mm/Hg pO2 89 (80-100) mm/Hg HCO3 26.3 (21-28) mmol/L ABG pH 7.45 (7.35-7.45) ABG Total CO2 26.8 (22-28) mmol/L ABG O2 Saturation 98.9 H (95-98) % ABG Base Excess 1.8 (-2.0-3.0) mmol/L Michele Test Pos ABG Potassium 2.9 L (3.6-5.2) mmol/L A-a O2 Difference 293.0 mm/Hg Respiratory Index 3.3 Glucose 119 H (65-105) mg/dl Lactate 2.8 H (0.7-2.1) mmol/L Vent Mode Prvc Mechanical Rate 16 FiO2 60.0 % Tidal Volume 450 PEEP 5 Sodium 144.0 (132-148) mmol/L Potassium (3.6-5.2) mmol/L Chloride 113.0 H (98-107) mmol/L Carbon Dioxide (22-30) mmol/L Anion Gap (10-20) BUN (7-17) mg/dL Creatinine (0.7-1.2) mg/dL Est GFR ( Amer) Est GFR (Non-Af Amer) POC Glucose (mg/dL) 104 (65-110) mg/dL Random Glucose (65-105) mg/dL Calcium (8.6-10.4) mg/dl Phosphorus (2.5-4.5) mg/dL Magnesium (1.6-2.3) mg/dL Total Bilirubin (0.2-1.3) mg/dL AST (14-36) U/L ALT (9-52) U/L Alkaline Phosphatase (38-126) U/L Total Protein (6.3-8.3) g/dL Albumin (3.5-5.0) g/dL Globulin (2.2-3.9) gm/dL Albumin/Globulin Ratio (1.0-2.1) Arterial Blood Potassium 2.9 L (3.6-5.2) mmol/L 03/11/18 03/11/18 03/11/18 Range/Units 04:15 04:15 00:42 WBC 11.9 H (4.8-10.8) K/uL RBC 3.60 L (3.80-5.20) Mil/uL Hgb 11.2 (11.0-16.0) g/dL Hct 33.6 L (34.0-47.0) % MCV 93.4 (81.0-99.0) fL MCH 31.0 (27.0-31.0) pg MCHC 33.2 (33.0-37.0) g/dL RDW 16.5 H (11.5-14.5) % Plt Count 160 (130-400) K/uL MPV 9.5 (7.2-11.7) fL Neut % (Auto) 84.3 H (50.0-75.0) % Lymph % (Auto) 12.1 L (20.0-40.0) % Schuyler % (Auto) 1.3 (0.0-10.0) % Eos % (Auto) 2.2 (0.0-4.0) % Baso % (Auto) 0.1 (0.0-2.0) % Neut # (Auto) 10.0 H (1.8-7.0) K/uL Lymph # (Auto) 1.4 (1.0-4.3) K/uL Schuyler # (Auto) 0.2 (0.0-0.8) K/uL Eos # (Auto) 0.3 (0.0-0.7) K/uL Baso # (Auto) 0.0 (0.0-0.2) K/uL PT (9.7-12.2) SECONDS INR APTT (21-34) SECONDS Puncture Site pCO2 (35-45) mm/Hg pO2 (80-100) mm/Hg HCO3 (21-28) mmol/L ABG pH (7.35-7.45) ABG Total CO2 (22-28) mmol/L ABG O2 Saturation (95-98) % ABG Base Excess (-2.0-3.0) mmol/L Michele Test ABG Potassium (3.6-5.2) mmol/L A-a O2 Difference mm/Hg Respiratory Index Glucose (65-105) mg/dl Lactate (0.7-2.1) mmol/L Vent Mode Mechanical Rate FiO2 % Tidal Volume PEEP Sodium 143 (132-148) mmol/L Potassium 3.0 L (3.6-5.2) mmol/L Chloride 108 H (98-107) mmol/L Carbon Dioxide 29 (22-30) mmol/L Anion Gap 10 (10-20) BUN 34 H (7-17) mg/dL Creatinine 0.8 (0.7-1.2) mg/dL Est GFR ( Amer) > 60 Est GFR (Non-Af Amer) > 60 POC Glucose (mg/dL) 88 (65-110) mg/dL Random Glucose 116 H (65-105) mg/dL Calcium 7.1 L (8.6-10.4) mg/dl Phosphorus 2.7 (2.5-4.5) mg/dL Magnesium 1.9 (1.6-2.3) mg/dL Total Bilirubin 4.5 H (0.2-1.3) mg/dL AST 54 H (14-36) U/L ALT 63 H (9-52) U/L Alkaline Phosphatase 114 (38-126) U/L Total Protein 4.6 L (6.3-8.3) g/dL Albumin 2.3 L (3.5-5.0) g/dL Globulin 2.3 (2.2-3.9) gm/dL Albumin/Globulin Ratio 1.0 (1.0-2.1) Arterial Blood Potassium (3.6-5.2) mmol/L 03/11/18 03/11/18 03/11/18 Range/Units 00:08 00:05 00:02 WBC (4.8-10.8) K/uL RBC (3.80-5.20) Mil/uL Hgb (11.0-16.0) g/dL Hct (34.0-47.0) % MCV (81.0-99.0) fL MCH (27.0-31.0) pg MCHC (33.0-37.0) g/dL RDW (11.5-14.5) % Plt Count (130-400) K/uL MPV (7.2-11.7) fL Neut % (Auto) (50.0-75.0) % Lymph % (Auto) (20.0-40.0) % Schuyler % (Auto) (0.0-10.0) % Eos % (Auto) (0.0-4.0) % Baso % (Auto) (0.0-2.0) % Neut # (Auto) (1.8-7.0) K/uL Lymph # (Auto) (1.0-4.3) K/uL Schuyler # (Auto) (0.0-0.8) K/uL Eos # (Auto) (0.0-0.7) K/uL Baso # (Auto) (0.0-0.2) K/uL PT (9.7-12.2) SECONDS INR APTT (21-34) SECONDS Puncture Site pCO2 (35-45) mm/Hg pO2 (80-100) mm/Hg HCO3 (21-28) mmol/L ABG pH (7.35-7.45) ABG Total CO2 (22-28) mmol/L ABG O2 Saturation (95-98) % ABG Base Excess (-2.0-3.0) mmol/L Michele Test ABG Potassium (3.6-5.2) mmol/L A-a O2 Difference mm/Hg Respiratory Index Glucose (65-105) mg/dl Lactate (0.7-2.1) mmol/L Vent Mode Mechanical Rate FiO2 % Tidal Volume PEEP Sodium (132-148) mmol/L Potassium (3.6-5.2) mmol/L Chloride (98-107) mmol/L Carbon Dioxide (22-30) mmol/L Anion Gap (10-20) BUN (7-17) mg/dL Creatinine (0.7-1.2) mg/dL Est GFR ( Amer) Est GFR (Non-Af Amer) POC Glucose (mg/dL) 64 L 59 L 70 (65-110) mg/dL Random Glucose (65-105) mg/dL Calcium (8.6-10.4) mg/dl Phosphorus (2.5-4.5) mg/dL Magnesium (1.6-2.3) mg/dL Total Bilirubin (0.2-1.3) mg/dL AST (14-36) U/L ALT (9-52) U/L Alkaline Phosphatase (38-126) U/L Total Protein (6.3-8.3) g/dL Albumin (3.5-5.0) g/dL Globulin (2.2-3.9) gm/dL Albumin/Globulin Ratio (1.0-2.1) Arterial Blood Potassium (3.6-5.2) mmol/L 03/10/18 03/10/18 Range/Units 21:26 17:44 WBC (4.8-10.8) K/uL RBC (3.80-5.20) Mil/uL Hgb (11.0-16.0) g/dL Hct (34.0-47.0) % MCV (81.0-99.0) fL MCH (27.0-31.0) pg MCHC (33.0-37.0) g/dL RDW (11.5-14.5) % Plt Count (130-400) K/uL MPV (7.2-11.7) fL Neut % (Auto) (50.0-75.0) % Lymph % (Auto) (20.0-40.0) % Schuyler % (Auto) (0.0-10.0) % Eos % (Auto) (0.0-4.0) % Baso % (Auto) (0.0-2.0) % Neut # (Auto) (1.8-7.0) K/uL Lymph # (Auto) (1.0-4.3) K/uL Schuyler # (Auto) (0.0-0.8) K/uL Eos # (Auto) (0.0-0.7) K/uL Baso # (Auto) (0.0-0.2) K/uL PT (9.7-12.2) SECONDS INR APTT 39 H D (21-34) SECONDS Puncture Site pCO2 (35-45) mm/Hg pO2 (80-100) mm/Hg HCO3 (21-28) mmol/L ABG pH (7.35-7.45) ABG Total CO2 (22-28) mmol/L ABG O2 Saturation (95-98) % ABG Base Excess (-2.0-3.0) mmol/L Michele Test ABG Potassium (3.6-5.2) mmol/L A-a O2 Difference mm/Hg Respiratory Index Glucose (65-105) mg/dl Lactate (0.7-2.1) mmol/L Vent Mode Mechanical Rate FiO2 % Tidal Volume PEEP Sodium (132-148) mmol/L Potassium (3.6-5.2) mmol/L Chloride (98-107) mmol/L Carbon Dioxide (22-30) mmol/L Anion Gap (10-20) BUN (7-17) mg/dL Creatinine (0.7-1.2) mg/dL Est GFR ( Amer) Est GFR (Non-Af Amer) POC Glucose (mg/dL) 74 (65-110) mg/dL Random Glucose (65-105) mg/dL Calcium (8.6-10.4) mg/dl Phosphorus (2.5-4.5) mg/dL Magnesium (1.6-2.3) mg/dL Total Bilirubin (0.2-1.3) mg/dL AST (14-36) U/L ALT (9-52) U/L Alkaline Phosphatase (38-126) U/L Total Protein (6.3-8.3) g/dL Albumin (3.5-5.0) g/dL Globulin (2.2-3.9) gm/dL Albumin/Globulin Ratio (1.0-2.1) Arterial Blood Potassium (3.6-5.2) mmol/L Laboratory Results - last 24 hr 03/10/18 03/10/1818 17:44 21:26 00:02 WBC RBC Hgb Hct MCV MCH MCHC RDW Plt Count MPV Neut % (Auto) Lymph % (Auto) Schuyler % (Auto) Eos % (Auto) Baso % (Auto) Neut # (Auto) Lymph # (Auto) Schuyler # (Auto) Eos # (Auto) Baso # (Auto) PT INR APTT 39 H D Puncture Site pCO2 pO2 HCO3 ABG pH ABG Total CO2 ABG O2 Saturation ABG Base Excess Michele Test ABG Potassium A-a O2 Difference Respiratory Index Glucose Lactate Vent Mode Mechanical Rate FiO2 Tidal Volume PEEP Sodium Potassium Chloride Carbon Dioxide Anion Gap BUN Creatinine Est GFR ( Amer) Est GFR (Non-Af Amer) POC Glucose (mg/dL) 74 70 Random Glucose Calcium Phosphorus Magnesium Total Bilirubin AST ALT Alkaline Phosphatase Total Protein Albumin Globulin Albumin/Globulin Ratio Arterial Blood Potassium 03/11/18 03/11/18 03/11/18 00:05 00:08 00:42 WBC RBC Hgb Hct MCV MCH MCHC RDW Plt Count MPV Neut % (Auto) Lymph % (Auto) Schuyler % (Auto) Eos % (Auto) Baso % (Auto) Neut # (Auto) Lymph # (Auto) Schuyler # (Auto) Eos # (Auto) Baso # (Auto) PT INR APTT Puncture Site pCO2 pO2 HCO3 ABG pH ABG Total CO2 ABG O2 Saturation ABG Base Excess Michele Test ABG Potassium A-a O2 Difference Respiratory Index Glucose Lactate Vent Mode Mechanical Rate FiO2 Tidal Volume PEEP Sodium Potassium Chloride Carbon Dioxide Anion Gap BUN Creatinine Est GFR ( Amer) Est GFR (Non-Af Amer) POC Glucose (mg/dL) 59 L 64 L 88 Random Glucose Calcium Phosphorus Magnesium Total Bilirubin AST ALT Alkaline Phosphatase Total Protein Albumin Globulin Albumin/Globulin Ratio Arterial Blood Potassium 03/11/18 03/11/18 03/11/18 04:15 04:15 04:15 WBC 11.9 H RBC 3.60 L Hgb 11.2 Hct 33.6 L MCV 93.4 MCH 31.0 MCHC 33.2 RDW 16.5 H Plt Count 160 MPV 9.5 Neut % (Auto) 84.3 H Lymph % (Auto) 12.1 L Schuyler % (Auto) 1.3 Eos % (Auto) 2.2 Baso % (Auto) 0.1 Neut # (Auto) 10.0 H Lymph # (Auto) 1.4 Schuyler # (Auto) 0.2 Eos # (Auto) 0.3 Baso # (Auto) 0.0 PT 15.7 H INR 1.4 APTT 43 H Puncture Site pCO2 pO2 HCO3 ABG pH ABG Total CO2 ABG O2 Saturation ABG Base Excess Michele Test ABG Potassium A-a O2 Difference Respiratory Index Glucose Lactate Vent Mode Mechanical Rate FiO2 Tidal Volume PEEP Sodium 143 Potassium 3.0 L Chloride 108 H Carbon Dioxide 29 Anion Gap 10 BUN 34 H Creatinine 0.8 Est GFR ( Amer) > 60 Est GFR (Non-Af Amer) > 60 POC Glucose (mg/dL) Random Glucose 116 H Calcium 7.1 L Phosphorus 2.7 Magnesium 1.9 Total Bilirubin 4.5 H AST 54 H ALT 63 H Alkaline Phosphatase 114 Total Protein 4.6 L Albumin 2.3 L Globulin 2.3 Albumin/Globulin Ratio 1.0 Arterial Blood Potassium 03/11/18 03/11/18 05:46 06:48 WBC RBC Hgb Hct MCV MCH MCHC RDW Plt Count MPV Neut % (Auto) Lymph % (Auto) Schuyler % (Auto) Eos % (Auto) Baso % (Auto) Neut # (Auto) Lymph # (Auto) Schuyler # (Auto) Eos # (Auto) Baso # (Auto) PT INR APTT Puncture Site R rad pCO2 37 pO2 89 HCO3 26.3 ABG pH 7.45 ABG Total CO2 26.8 ABG O2 Saturation 98.9 H ABG Base Excess 1.8 Michele Test Pos ABG Potassium 2.9 L A-a O2 Difference 293.0 Respiratory Index 3.3 Glucose 119 H Lactate 2.8 H Vent Mode Prvc Mechanical Rate 16 FiO2 60.0 Tidal Volume 450 PEEP 5 Sodium 144.0 Potassium Chloride 113.0 H Carbon Dioxide Anion Gap BUN Creatinine Est GFR ( Amer) Est GFR (Non-Af Amer) POC Glucose (mg/dL) 104 Random Glucose Calcium Phosphorus Magnesium Total Bilirubin AST ALT Alkaline Phosphatase Total Protein Albumin Globulin Albumin/Globulin Ratio Arterial Blood Potassium 2.9 L Fingerstick Blood Sugar Results: 104 Review of Systems - Review of Systems Systems not reviewed;Unavailable: Intubated Critical Care Progress Note - Nutrition Nutrition: Nutrition Category Date Time Status NPO Diet [DIET] Diets 03/06/18 Breakfast Active Assessment/Plan - Assessment and Plan (Free Text) Assessment: Patient is an 82 yo female with a 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 [facility] 2 [facility]. She presented to ED today with nausea, vomiting, abdominal pain, and lethargy. CT A/P demonstrated ischemic bowel, occulded SMA, Hepatic Infarct, Renal Infarct and free air. 11: Patient is s/p Exploratory Lap with lysis of adhesions; today POD#5 Plan: Neuro: - Sedated on Fentanyl @ 2 - Sedated on Propafol @ 5 - Monitor mental status CV: - Vasopressin @ .04 - Levophed @ 4 - Monitor vitals Pulm: - Trach culture pos Klebsiella - IV Merrem - Maintain spO2>92% - PRVC Vent GI: - CT A/P: ischemis small bowel, extensive pneumatosis intestinalis, mesenteric venous gas, intrahepatic portal venous gas, ascites - GI consulted (Patricia) - Surgery consulted (Fortino) * 118: Patient is s/p Exploratory Lap with lysis of adhesions; today POD#5 * 03/11: Patient is s/p second look Laparotomy with resection of partial necrotic small bowel; today POD#0 - Very poor prognosis Renal: - I's & O's - Replete electrolytes PRN Endo: - Maintain euglycemia - Hypoglycemia protocol Heme: - Monitor H/H - Monitor PT/INR/PTT - Hem/onc consulted (Pritesh) ID: Septic shock - leukocytosis resolved - IV Merrem PPx: VTE: holding heparin drip GI:PTx IVP Patient seen and case discussed in detail with Dr. Rosy Tamayo PGY1 <Seymour Gallegos - Last Filed: 03/11/18 18:35> CCU Objective - Vital Signs / Intake & Output Vital Signs (Last 4 hours): Vital Signs Temp Pulse Resp BP Pulse Ox 03/11/18 18:09 101 H 16 98/72 L 100 03/11/18 18:00 101 H 16 100 03/11/18 17:09 99 H 16 102/48 L 98 03/11/18 17:08 101 H 16 99 03/11/18 17:00 94 H 16 99 03/11/18 16:08 95 H 16 106/45 L 99 03/11/18 16:00 98.9 F 94 H 16 99 03/11/18 15:08 93 H 16 113/38 L 98 03/11/18 15:00 99 H 16 99 Intake and Output (Last 8hrs): Intake & Output 03/11/18 03/11/18 03/11/18 06:59 14:59 22:59 Intake Total 1186.2 1282.0 310.8 Output Total 655 565 150 Balance 531.2 717.0 160.8 Weight 210 lb 5.136 oz Intake: IV 135 350 Intake, IV Amount 1051.2 932.0 310.8 Left Wrist 49.6 Medial Port 66.4 33.2 Prox Port 210.4 154.0 6.5 Right Distal IJ 40 40 15 Right Distal Port 500 520 220 Internal Jugular Right Medial Port 184.8 184.8 69.3 Internal Jugular Tube Feeding 0 0 Output: Gastric Amount 120 Right 120 Drainage 20 10 LEFT JEJUNOSTOMY 20 10 Urine 515 565 140 Urethral (Tran) 515 340 140 Stool 0 0 Emesis 0 0 - Medications Active Medications: Active Medications Generic Name Dose Route Start Last Admin Trade Name Freq PRN Reason Stop Dose Admin Dextrose 0 ml 03/06/18 15:02 03/11/18 00:13 Dextrose 50% Inj IV 50 ml STAT PRN Administration Hypoglycemia Protocol Protocol Dextrose 0 gm 03/06/18 15:02 Glutose 15 PO ONCE PRN Hypoglycemia Protocol Protocol Glucagon 0 mg 03/06/18 15:02 Glucagen Diagnostic Kit IM STAT PRN Hypoglycemia Protocol Protocol Hydromorphone HCl 0.25 mg 03/10/18 20:35 03/11/18 05:43 Dilaudid IVP 0.25 mg Q4H PRN Administration Pain, severe (8-10) Dextrose 1,000 mls @ 0 mls/hr 03/06/18 15:02 Dextrose 5% In Water 1000 Ml IV .Q0M PRN Hypoglycemia Protocol Protocol Per Protocol Meropenem 1 gm/ Sodium 100 mls @ 100 mls/hr 03/07/18 07:15 03/11/18 15:42 Chloride IVPB 100 mls/hr Q8H [facility] Administration Protocol Furosemide 100 mg/ Sodium 100 mls @ 5 mls/hr 03/10/18 10:15 03/11/18 06:59 Chloride IV Not Given .Q20H [facility] 5 MG/HR Norepinephrine Bitartrate 4 mg 250 mls @ 15 mls/hr 03/10/18 12:30 03/11/18 06:58 / Sodium Chloride IV 7 mcg/min .[id number] PRN 26.25 mls/hr TITRATE PER MD ORDER Administration Protocol 4 MCG/MIN Propofol 1,000 mg in 100 mls @ 10.733 mls/hr 03/10/18 23:16 03/11/18 03:02 Diprivan IV 14.5 mcg/kg/min .Q9H20M PRN 8.3 mls/hr TITRATE PER MD ORDER Administration Protocol 18.75 MCG/KG/MIN Fentanyl Citrate 2,500 mcg/ 250 mls @ 28.62 mls/hr 03/10/18 23:30 03/11/18 18:23 Sodium Chloride IV Not Given .Q8H45M [facility] Protocol 3 MCG/KG/HR Heparin Sodium/Sodium Chloride 25,000 units in 250 mls @ 7.632 mls/hr 03/10/18 23:20 03/11/18 06:05 Heparin 87473 Units/250ml 1/2 Normal Saline IV 0 units/kg/hr .Q24H PRN 0 mls/hr ADJUST RATE PER PROTOCOL Titration Protocol 8 UNITS/KG/HR Dextrose 1,000 mls @ 60 mls/hr 03/11/18 00:45 03/11/18 18:23 Dextrose 5% In Water 1000 Ml IV Not Given .[id number] [facility] Insulin Aspart 0 unit 03/06/18 18:00 03/11/18 18:24 Novolog SC Not Given Q6H [facility] Protocol Pantoprazole Sodium 40 mg 03/07/18 10:00 03/11/18 09:16 Protonix Inj IVP 40 mg Q12H [facility] Administration Vitamin A 0.5 ea 03/10/18 20:33 03/11/18 06:30 Vitamin A & D Oint Ud Foilpak TOP 0.5 ea Q4 PRN Administration Lip dryness - Patient Studies Lab Studies: Microbiology Studies 03/06/18 13:17 Blood Culture - Final Blood NO GROWTH AFTER 5 DAYS Gram Stain - Final TEST NOT PERFORMED 03/06/18 13:17 Blood Culture - Final Blood NO GROWTH AFTER 5 DAYS Gram Stain - Final TEST NOT PERFORMED Lab Studies 03/11/18 03/11/18 03/11/18 Range/Units 06:48 05:46 04:15 WBC (4.8-10.8) K/uL RBC (3.80-5.20) Mil/uL Hgb (11.0-16.0) g/dL Hct (34.0-47.0) % MCV (81.0-99.0) fL MCH (27.0-31.0) pg MCHC (33.0-37.0) g/dL RDW (11.5-14.5) % Plt Count (130-400) K/uL MPV (7.2-11.7) fL Neut % (Auto) (50.0-75.0) % Lymph % (Auto) (20.0-40.0) % Schuyler % (Auto) (0.0-10.0) % Eos % (Auto) (0.0-4.0) % Baso % (Auto) (0.0-2.0) % Neut # (Auto) (1.8-7.0) K/uL Lymph # (Auto) (1.0-4.3) K/uL Schuyler # (Auto) (0.0-0.8) K/uL Eos # (Auto) (0.0-0.7) K/uL Baso # (Auto) (0.0-0.2) K/uL PT 15.7 H (9.7-12.2) SECONDS INR 1.4 APTT 43 H (21-34) SECONDS Puncture Site R rad pCO2 37 (35-45) mm/Hg pO2 89 (80-100) mm/Hg HCO3 26.3 (21-28) mmol/L ABG pH 7.45 (7.35-7.45) ABG Total CO2 26.8 (22-28) mmol/L ABG O2 Saturation 98.9 H (95-98) % ABG Base Excess 1.8 (-2.0-3.0) mmol/L Michele Test Pos ABG Potassium 2.9 L (3.6-5.2) mmol/L A-a O2 Difference 293.0 mm/Hg Respiratory Index 3.3 Glucose 119 H (65-105) mg/dl Lactate 2.8 H (0.7-2.1) mmol/L Vent Mode Prvc Mechanical Rate 16 FiO2 60.0 % Tidal Volume 450 PEEP 5 Sodium 144.0 (132-148) mmol/L Potassium (3.6-5.2) mmol/L Chloride 113.0 H (98-107) mmol/L Carbon Dioxide (22-30) mmol/L Anion Gap (10-20) BUN (7-17) mg/dL Creatinine (0.7-1.2) mg/dL Est GFR ( Amer) Est GFR (Non-Af Amer) POC Glucose (mg/dL) 104 (65-110) mg/dL Random Glucose (65-105) mg/dL Calcium (8.6-10.4) mg/dl Phosphorus (2.5-4.5) mg/dL Magnesium (1.6-2.3) mg/dL Total Bilirubin (0.2-1.3) mg/dL AST (14-36) U/L ALT (9-52) U/L Alkaline Phosphatase (38-126) U/L Total Protein (6.3-8.3) g/dL Albumin (3.5-5.0) g/dL Globulin (2.2-3.9) gm/dL Albumin/Globulin Ratio (1.0-2.1) Arterial Blood Potassium 2.9 L (3.6-5.2) mmol/L 03/11/18 03/11/18 03/11/18 Range/Units 04:15 04:15 00:42 WBC 11.9 H (4.8-10.8) K/uL RBC 3.60 L (3.80-5.20) Mil/uL Hgb 11.2 (11.0-16.0) g/dL Hct 33.6 L (34.0-47.0) % MCV 93.4 (81.0-99.0) fL MCH 31.0 (27.0-31.0) pg MCHC 33.2 (33.0-37.0) g/dL RDW 16.5 H (11.5-14.5) % Plt Count 160 (130-400) K/uL MPV 9.5 (7.2-11.7) fL Neut % (Auto) 84.3 H (50.0-75.0) % Lymph % (Auto) 12.1 L (20.0-40.0) % Schuyler % (Auto) 1.3 (0.0-10.0) % Eos % (Auto) 2.2 (0.0-4.0) % Baso % (Auto) 0.1 (0.0-2.0) % Neut # (Auto) 10.0 H (1.8-7.0) K/uL Lymph # (Auto) 1.4 (1.0-4.3) K/uL Schuyler # (Auto) 0.2 (0.0-0.8) K/uL Eos # (Auto) 0.3 (0.0-0.7) K/uL Baso # (Auto) 0.0 (0.0-0.2) K/uL PT (9.7-12.2) SECONDS INR APTT (21-34) SECONDS Puncture Site pCO2 (35-45) mm/Hg pO2 (80-100) mm/Hg HCO3 (21-28) mmol/L ABG pH (7.35-7.45) ABG Total CO2 (22-28) mmol/L ABG O2 Saturation (95-98) % ABG Base Excess (-2.0-3.0) mmol/L Michele Test ABG Potassium (3.6-5.2) mmol/L A-a O2 Difference mm/Hg Respiratory Index Glucose (65-105) mg/dl Lactate (0.7-2.1) mmol/L Vent Mode Mechanical Rate FiO2 % Tidal Volume PEEP Sodium 143 (132-148) mmol/L Potassium 3.0 L (3.6-5.2) mmol/L Chloride 108 H (98-107) mmol/L Carbon Dioxide 29 (22-30) mmol/L Anion Gap 10 (10-20) BUN 34 H (7-17) mg/dL Creatinine 0.8 (0.7-1.2) mg/dL Est GFR ( Amer) > 60 Est GFR (Non-Af Amer) > 60 POC Glucose (mg/dL) 88 (65-110) mg/dL Random Glucose 116 H (65-105) mg/dL Calcium 7.1 L (8.6-10.4) mg/dl Phosphorus 2.7 (2.5-4.5) mg/dL Magnesium 1.9 (1.6-2.3) mg/dL Total Bilirubin 4.5 H (0.2-1.3) mg/dL AST 54 H (14-36) U/L ALT 63 H (9-52) U/L Alkaline Phosphatase 114 (38-126) U/L Total Protein 4.6 L (6.3-8.3) g/dL Albumin 2.3 L (3.5-5.0) g/dL Globulin 2.3 (2.2-3.9) gm/dL Albumin/Globulin Ratio 1.0 (1.0-2.1) Arterial Blood Potassium (3.6-5.2) mmol/L 03/11/18 03/11/18 03/11/18 Range/Units 00:08 00:05 00:02 WBC (4.8-10.8) K/uL RBC (3.80-5.20) Mil/uL Hgb (11.0-16.0) g/dL Hct (34.0-47.0) % MCV (81.0-99.0) fL MCH (27.0-31.0) pg MCHC (33.0-37.0) g/dL RDW (11.5-14.5) % Plt Count (130-400) K/uL MPV (7.2-11.7) fL Neut % (Auto) (50.0-75.0) % Lymph % (Auto) (20.0-40.0) % Schuyler % (Auto) (0.0-10.0) % Eos % (Auto) (0.0-4.0) % Baso % (Auto) (0.0-2.0) % Neut # (Auto) (1.8-7.0) K/uL Lymph # (Auto) (1.0-4.3) K/uL Schuyler # (Auto) (0.0-0.8) K/uL Eos # (Auto) (0.0-0.7) K/uL Baso # (Auto) (0.0-0.2) K/uL PT (9.7-12.2) SECONDS INR APTT (21-34) SECONDS Puncture Site pCO2 (35-45) mm/Hg pO2 (80-100) mm/Hg HCO3 (21-28) mmol/L ABG pH (7.35-7.45) ABG Total CO2 (22-28) mmol/L ABG O2 Saturation (95-98) % ABG Base Excess (-2.0-3.0) mmol/L Michele Test ABG Potassium (3.6-5.2) mmol/L A-a O2 Difference mm/Hg Respiratory Index Glucose (65-105) mg/dl Lactate (0.7-2.1) mmol/L Vent Mode Mechanical Rate FiO2 % Tidal Volume PEEP Sodium (132-148) mmol/L Potassium (3.6-5.2) mmol/L Chloride (98-107) mmol/L Carbon Dioxide (22-30) mmol/L Anion Gap (10-20) BUN (7-17) mg/dL Creatinine (0.7-1.2) mg/dL Est GFR ( Amer) Est GFR (Non-Af Amer) POC Glucose (mg/dL) 64 L 59 L 70 (65-110) mg/dL Random Glucose (65-105) mg/dL Calcium (8.6-10.4) mg/dl Phosphorus (2.5-4.5) mg/dL Magnesium (1.6-2.3) mg/dL Total Bilirubin (0.2-1.3) mg/dL AST (14-36) U/L ALT (9-52) U/L Alkaline Phosphatase (38-126) U/L Total Protein (6.3-8.3) g/dL Albumin (3.5-5.0) g/dL Globulin (2.2-3.9) gm/dL Albumin/Globulin Ratio (1.0-2.1) Arterial Blood Potassium (3.6-5.2) mmol/L 03/10/18 Range/Units 21:26 WBC (4.8-10.8) K/uL RBC (3.80-5.20) Mil/uL Hgb (11.0-16.0) g/dL Hct (34.0-47.0) % MCV (81.0-99.0) fL MCH (27.0-31.0) pg MCHC (33.0-37.0) g/dL RDW (11.5-14.5) % Plt Count (130-400) K/uL MPV (7.2-11.7) fL Neut % (Auto) (50.0-75.0) % Lymph % (Auto) (20.0-40.0) % Schuyler % (Auto) (0.0-10.0) % Eos % (Auto) (0.0-4.0) % Baso % (Auto) (0.0-2.0) % Neut # (Auto) (1.8-7.0) K/uL Lymph # (Auto) (1.0-4.3) K/uL Schuyler # (Auto) (0.0-0.8) K/uL Eos # (Auto) (0.0-0.7) K/uL Baso # (Auto) (0.0-0.2) K/uL PT (9.7-12.2) SECONDS INR APTT 39 H D (21-34) SECONDS Puncture Site pCO2 (35-45) mm/Hg pO2 (80-100) mm/Hg HCO3 (21-28) mmol/L ABG pH (7.35-7.45) ABG Total CO2 (22-28) mmol/L ABG O2 Saturation (95-98) % ABG Base Excess (-2.0-3.0) mmol/L Michele Test ABG Potassium (3.6-5.2) mmol/L A-a O2 Difference mm/Hg Respiratory Index Glucose (65-105) mg/dl Lactate (0.7-2.1) mmol/L Vent Mode Mechanical Rate FiO2 % Tidal Volume PEEP Sodium (132-148) mmol/L Potassium (3.6-5.2) mmol/L Chloride (98-107) mmol/L Carbon Dioxide (22-30) mmol/L Anion Gap (10-20) BUN (7-17) mg/dL Creatinine (0.7-1.2) mg/dL Est GFR ( Amer) Est GFR (Non-Af Amer) POC Glucose (mg/dL) (65-110) mg/dL Random Glucose (65-105) mg/dL Calcium (8.6-10.4) mg/dl Phosphorus (2.5-4.5) mg/dL Magnesium (1.6-2.3) mg/dL Total Bilirubin (0.2-1.3) mg/dL AST (14-36) U/L ALT (9-52) U/L Alkaline Phosphatase (38-126) U/L Total Protein (6.3-8.3) g/dL Albumin (3.5-5.0) g/dL Globulin (2.2-3.9) gm/dL Albumin/Globulin Ratio (1.0-2.1) Arterial Blood Potassium (3.6-5.2) mmol/L Laboratory Results - last 24 hr 03/10/18 03/11/18 03/11/18 21:26 00:02 00:05 WBC RBC Hgb Hct MCV MCH MCHC RDW Plt Count MPV Neut % (Auto) Lymph % (Auto) Schuyler % (Auto) Eos % (Auto) Baso % (Auto) Neut # (Auto) Lymph # (Auto) Schuyler # (Auto) Eos # (Auto) Baso # (Auto) PT INR APTT 39 H D Puncture Site pCO2 pO2 HCO3 ABG pH ABG Total CO2 ABG O2 Saturation ABG Base Excess Michele Test ABG Potassium A-a O2 Difference Respiratory Index Glucose Lactate Vent Mode Mechanical Rate FiO2 Tidal Volume PEEP Sodium Potassium Chloride Carbon Dioxide Anion Gap BUN Creatinine Est GFR ( Amer) Est GFR (Non-Af Amer) POC Glucose (mg/dL) 70 59 L Random Glucose Calcium Phosphorus Magnesium Total Bilirubin AST ALT Alkaline Phosphatase Total Protein Albumin Globulin Albumin/Globulin Ratio Arterial Blood Potassium 03/11/18 03/11/18 03/11/18 00:08 00:42 04:15 WBC 11.9 H RBC 3.60 L Hgb 11.2 Hct 33.6 L MCV 93.4 MCH 31.0 MCHC 33.2 RDW 16.5 H Plt Count 160 MPV 9.5 Neut % (Auto) 84.3 H Lymph % (Auto) 12.1 L Schuyler % (Auto) 1.3 Eos % (Auto) 2.2 Baso % (Auto) 0.1 Neut # (Auto) 10.0 H Lymph # (Auto) 1.4 Schuyler # (Auto) 0.2 Eos # (Auto) 0.3 Baso # (Auto) 0.0 PT INR APTT Puncture Site pCO2 pO2 HCO3 ABG pH ABG Total CO2 ABG O2 Saturation ABG Base Excess Michele Test ABG Potassium A-a O2 Difference Respiratory Index Glucose Lactate Vent Mode Mechanical Rate FiO2 Tidal Volume PEEP Sodium Potassium Chloride Carbon Dioxide Anion Gap BUN Creatinine Est GFR ( Amer) Est GFR (Non-Af Amer) POC Glucose (mg/dL) 64 L 88 Random Glucose Calcium Phosphorus Magnesium Total Bilirubin AST ALT Alkaline Phosphatase Total Protein Albumin Globulin Albumin/Globulin Ratio Arterial Blood Potassium 03/11/18 03/11/18 03/11/18 04:15 04:15 05:46 WBC RBC Hgb Hct MCV MCH MCHC RDW Plt Count MPV Neut % (Auto) Lymph % (Auto) Schuyler % (Auto) Eos % (Auto) Baso % (Auto) Neut # (Auto) Lymph # (Auto) Schuyler # (Auto) Eos # (Auto) Baso # (Auto) PT 15.7 H INR 1.4 APTT 43 H Puncture Site R rad pCO2 37 pO2 89 HCO3 26.3 ABG pH 7.45 ABG Total CO2 26.8 ABG O2 Saturation 98.9 H ABG Base Excess 1.8 Michele Test Pos ABG Potassium 2.9 L A-a O2 Difference 293.0 Respiratory Index 3.3 Glucose 119 H Lactate 2.8 H Vent Mode Prvc Mechanical Rate 16 FiO2 60.0 Tidal Volume 450 PEEP 5 Sodium 143 144.0 Potassium 3.0 L Chloride 108 H 113.0 H Carbon Dioxide 29 Anion Gap 10 BUN 34 H Creatinine 0.8 Est GFR ( Amer) > 60 Est GFR (Non-Af Amer) > 60 POC Glucose (mg/dL) Random Glucose 116 H Calcium 7.1 L Phosphorus 2.7 Magnesium 1.9 Total Bilirubin 4.5 H AST 54 H ALT 63 H Alkaline Phosphatase 114 Total Protein 4.6 L Albumin 2.3 L Globulin 2.3 Albumin/Globulin Ratio 1.0 Arterial Blood Potassium 2.9 L 03/11/18 06:48 WBC RBC Hgb Hct MCV MCH MCHC RDW Plt Count MPV Neut % (Auto) Lymph % (Auto) Schuyler % (Auto) Eos % (Auto) Baso % (Auto) Neut # (Auto) Lymph # (Auto) Schuyler # (Auto) Eos # (Auto) Baso # (Auto) PT INR APTT Puncture Site pCO2 pO2 HCO3 ABG pH ABG Total CO2 ABG O2 Saturation ABG Base Excess Michele Test ABG Potassium A-a O2 Difference Respiratory Index Glucose Lactate Vent Mode Mechanical Rate FiO2 Tidal Volume PEEP Sodium Potassium Chloride Carbon Dioxide Anion Gap BUN Creatinine Est GFR ( Amer) Est GFR (Non-Af Amer) POC Glucose (mg/dL) 104 Random Glucose Calcium Phosphorus Magnesium Total Bilirubin AST ALT Alkaline Phosphatase Total Protein Albumin Globulin Albumin/Globulin Ratio Arterial Blood Potassium Critical Care Progress Note - Nutrition Nutrition: Nutrition Category Date Time Status NPO Diet [DIET] Diets 03/06/18 Breakfast Active Attending/Attestation - Attestation I have personally seen and examined this patient.: Yes I have fully participated in the care of the patient.: Yes I have reviewed all pertinent clinical information: Yes Notes (Text): 03/11/18 18:27 I have seen and examined the patient. Medical records, lab studies, and imaging were reviewed by me and a management plan was formulated on multidisciplinary rounds with resident Dr. Tamayo. I agree with their documented assessment and plan. Patient underwent repeat ex-lap today. Small bowel resection performed, patient left in discontinuity. Her bowel is friable and does not look healthy. It will be dangerous to start feeds at this point. This is a grave prognosis for the patient. Will have to have a family discussion as to expected outcomes and custodial care. Critical Care Time 35 minutes. Multi-disciplinary rounds were performed with house staff, nursing, speech therapy, respiratory therapy, pharmacy and nutrition with integrated input from the primary team/attending and other consulting services. The documented time is cumulative and includes review of patient data/exams/labs/chart review and examination of the patient on rounds and throughout the day; time is exclusive of any procedures or teaching time. 03/11/18 18:32
--- NOTE | 2018-03-11 18:18 | CP.PCM.PN ---
Subjective - Date & Time of Evaluation Date of Evaluation: 03/11/18 Time of Evaluation: 12:45 - Subjective Subjective: clinically same Objective - Vital Signs/Intake and Output Vital Signs (last 24 hours): Temp Pulse Resp BP Pulse Ox 98.9 F 101 H 16 102/48 L 99 03/11/18 16:00 03/11/18 17:08 03/11/18 17:08 03/11/18 17:09 03/11/18 17:08 Intake and Output: 03/11/18 03/11/18 06:59 18:59 Intake Total 1847.0 1434.7 Output Total 1070 655 Balance 777.0 779.7 - Medications Medications: Current Medications Dextrose (Dextrose 50% Inj) 0 ml IV STAT PRN; Protocol PRN Reason: Hypoglycemia Protocol Last Admin: 03/11/18 00:13 Dose: 50 ml Dextrose (Glutose 15) 0 gm PO ONCE PRN; Protocol PRN Reason: Hypoglycemia Protocol Glucagon (Glucagen Diagnostic Kit) 0 mg IM STAT PRN; Protocol PRN Reason: Hypoglycemia Protocol Hydromorphone HCl (Dilaudid) 0.25 mg IVP Q4H PRN PRN Reason: Pain, severe (8-10) Last Admin: 03/11/18 05:43 Dose: 0.25 mg Dextrose (Dextrose 5% In Water 1000 Ml) 1,000 mls @ 0 mls/hr IV .Q0M PRN; Protocol PRN Reason: Hypoglycemia Protocol Meropenem 1 gm/ Sodium (Chloride) 100 mls @ 100 mls/hr IVPB Q8H [facility]; Protocol Last Admin: 03/11/18 15:42 Dose: 100 mls/hr Furosemide 100 mg/ Sodium (Chloride) 100 mls @ 5 mls/hr IV .Q20H [facility] Last Admin: 03/11/18 06:59 Dose: Not Given Norepinephrine Bitartrate 4 mg (/ Sodium Chloride) 250 mls @ 15 mls/hr IV .Q1 6H40M PRN; Protocol PRN Reason: TITRATE PER MD ORDER Last Admin: 03/11/18 06:58 Dose: 7 mcg/min, 26.25 mls/hr Propofol (Diprivan) 1,000 mg in 100 mls @ 10.733 mls/hr IV .Q9H20M PRN; Protocol PRN Reason: TITRATE PER MD ORDER Last Admin: 03/11/18 03:02 Dose: 14.5 mcg/kg/min, 8.3 mls/hr Fentanyl Citrate 2,500 mcg/ (Sodium Chloride) 250 mls @ 28.62 mls/hr IV .Q8H45M [facility]; Protocol Last Admin: 03/11/18 15:42 Dose: 2.42 mcg/kg/hr, 23.1 mls/hr Heparin Sodium/Sodium Chloride (Heparin 14107 Units/250ml 1/2 Normal Saline) 25,000 units in 250 mls @ 7.632 mls/hr IV .Q24H PRN; Protocol PRN Reason: ADJUST RATE PER PROTOCOL Last Titration: 03/11/18 06:05 Dose: 0 units/kg/hr, 0 mls/hr Dextrose (Dextrose 5% In Water 1000 Ml) 1,000 mls @ 60 mls/hr IV .[id number] [facility] Last Admin: 03/11/18 00:57 Dose: 60 mls/hr Insulin Aspart (Novolog) 0 unit SC Q6H [facility]; Protocol Last Admin: 03/11/18 15:44 Dose: Not Given Pantoprazole Sodium (Protonix Inj) 40 mg IVP Q12H [facility] Last Admin: 03/11/18 09:16 Dose: 40 mg Vitamin A (Vitamin A & D Oint Ud Foilpak) 0.5 ea TOP Q4 PRN PRN Reason: Lip dryness Last Admin: 03/11/18 06:30 Dose: 0.5 ea - Labs Labs: 03/11/18 04:15 03/11/18 04:15 PT 15.7 SECONDS (9.7-12.2) H 03/11/18 04:15 INR 1.4 03/11/18 04:15 APTT 43 SECONDS (21-34) H 03/11/18 04:15 - Constitutional Appears: Well - Head Exam Head Exam: ATRAUMATIC, NORMAL INSPECTION, NORMOCEPHALIC - Eye Exam Eye Exam: EOMI, Normal appearance, PERRL Pupil Exam: NORMAL ACCOMODATION, PERRL - ENT Exam ENT Exam: Mucous Membranes Moist, Normal Exam - Neck Exam Neck Exam: Full ROM, Normal Inspection. absent: Lymphadenopathy - Respiratory Exam Respiratory Exam: Decreased Breath Sounds - Cardiovascular Exam Cardiovascular Exam: REGULAR RHYTHM, +S1, +S2 - GI/Abdominal Exam GI & Abdominal Exam: Soft, Diminished Bowel Sounds - Rectal Exam Rectal Exam: Deferred
--- NOTE | 2018-03-11 21:10 | CP.PCM.PN ---
Subjective - Date & Time of Evaluation Date of Evaluation: 03/11/18 Time of Evaluation: 18:00 - Subjective Subjective: Vented, family at bedside s/p resection bowel Objective - Vital Signs/Intake and Output Vital Signs (last 24 hours): Temp Pulse Resp BP Pulse Ox 98.9 F 101 H 16 98/72 L 100 03/11/18 16:00 03/11/18 18:09 03/11/18 18:09 03/11/18 18:09 03/11/18 18:09 Intake and Output: 03/11/18 03/12/18 18:59 06:59 Intake Total 1672.8 85 Output Total 715 Balance 957.8 85 - Medications Medications: Current Medications Dextrose (Dextrose 50% Inj) 0 ml IV STAT PRN; Protocol PRN Reason: Hypoglycemia Protocol Last Admin: 03/11/18 00:13 Dose: 50 ml Dextrose (Glutose 15) 0 gm PO ONCE PRN; Protocol PRN Reason: Hypoglycemia Protocol Glucagon (Glucagen Diagnostic Kit) 0 mg IM STAT PRN; Protocol PRN Reason: Hypoglycemia Protocol Hydromorphone HCl (Dilaudid) 0.25 mg IVP Q4H PRN PRN Reason: Pain, severe (8-10) Last Admin: 03/11/18 19:41 Dose: 0.25 mg Dextrose (Dextrose 5% In Water 1000 Ml) 1,000 mls @ 0 mls/hr IV .Q0M PRN; Protocol PRN Reason: Hypoglycemia Protocol Meropenem 1 gm/ Sodium (Chloride) 100 mls @ 100 mls/hr IVPB Q8H [facility]; Protocol Last Admin: 03/11/18 15:42 Dose: 100 mls/hr Furosemide 100 mg/ Sodium (Chloride) 100 mls @ 5 mls/hr IV .Q20H [facility] Last Admin: 03/11/18 06:59 Dose: Not Given Norepinephrine Bitartrate 4 mg (/ Sodium Chloride) 250 mls @ 15 mls/hr IV .[id number] PRN; Protocol PRN Reason: TITRATE PER MD ORDER Last Admin: 03/11/18 06:58 Dose: 7 mcg/min, 26.25 mls/hr Propofol (Diprivan) 1,000 mg in 100 mls @ 10.733 mls/hr IV .Q9H20M PRN; Protocol PRN Reason: TITRATE PER MD ORDER Last Titration: 03/11/18 13:18 Dose: 0 mcg/kg/min, 0 mls/hr Fentanyl Citrate 2,500 mcg/ (Sodium Chloride) 250 mls @ 28.62 mls/hr IV .Q8H45M [facility]; Protocol Last Admin: 03/11/18 18:23 Dose: Not Given Heparin Sodium/Sodium Chloride (Heparin 25840 Units/250ml 1/2 Normal Saline) 25,000 units in 250 mls @ 7.632 mls/hr IV .Q24H PRN; Protocol PRN Reason: ADJUST RATE PER PROTOCOL Last Titration: 03/11/18 19:35 Dose: 6.482 units/kg/hr, 6.184 mls/hr Dextrose (Dextrose 5% In Water 1000 Ml) 1,000 mls @ 60 mls/hr IV .[id number] [facility] Last Admin: 03/11/18 18:23 Dose: Not Given Insulin Aspart (Novolog) 0 unit SC Q6H [facility]; Protocol Last Admin: 03/11/18 18:24 Dose: Not Given Pantoprazole Sodium (Protonix Inj) 40 mg IVP Q12H [facility] Last Admin: 03/11/18 09:16 Dose: 40 mg Vitamin A (Vitamin A & D Oint Ud Foilpak) 0.5 ea TOP Q4 PRN PRN Reason: Lip dryness Last Admin: 03/11/18 06:30 Dose: 0.5 ea - Labs Labs: 03/11/18 04:15 03/11/18 04:15 PT 15.7 SECONDS (9.7-12.2) H 03/11/18 04:15 INR 1.4 03/11/18 04:15 APTT 43 SECONDS (21-34) H 03/11/18 04:15 - Head Exam Head Exam: ATRAUMATIC - Eye Exam Eye Exam: Normal appearance - ENT Exam ENT Exam: Mucous Membranes Dry - Respiratory Exam Respiratory Exam: NORMAL BREATHING PATTERN - Cardiovascular Exam Cardiovascular Exam: +S1, +S2 - GI/Abdominal Exam GI & Abdominal Exam: Normal Bowel Sounds Assessment and Plan (1) Anemia Assessment & Plan: anemia of chronic disease. 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
[2018-03-12] MEDS: Furosemide 100 MG in Sodium Chloride 0.9% 90 ML IV SCH ×3 (02:15→19:15)
[2018-03-12] MEDS: HYDROmorphone 0.5 mg/0.5 ml ISec IVP PRN ×3 (04:59→23:49)
[2018-03-12 05:36] LABS: ABG ALLEN TEST POS; ARTERIAL BLOOD GAS HCO3 25.7 mmol/L (21-28); ARTERIAL BLOOD GAS O2 SAT 99.1 % (95-98); ARTERIAL BLOOD GAS PCO2 32 mm/Hg (35-45); ARTERIAL BLOOD GAS PH 7.48 (7.35-7.45); ARTERIAL BLOOD GAS PO2 177 mm/Hg (80-100); ARTERIAL BLOOD GAS TCO2 24.8 mmol/L (22-28)
[2018-03-12] MEDS: (Novolog) Insulin Aspart, Recombinant 100 u/ml 10 ml vial SC SCH ×4 (06:45→18:17)
[2018-03-12] MEDS: Meropenem 1 GM in Sodium Chloride 0.9% 100 ML IVPB SCH (07:31)
[2018-03-12 07:56] LABS: BASO % 0.2 % (0.0-2.0); EOS # 0.2 K/uL (0.0-0.7); EOS % 1.5 % (0.0-4.0); HEMOGLOBIN 11.1 g/dL (11.0-16.0); LYMPH # 1.9 K/uL (1.0-4.3); LYMPH % 11.8 % (20.0-40.0); MEAN CELL VOLUME 94.2 fL (81.0-99.0); MEAN CORPUSCULAR HEMOGLOBIN 30.9 pg (27.0-31.0); MEAN CORPUSCULAR HGB CONC 32.8 g/dL (33.0-37.0); MEAN PLATELET VOLUME 10.5 fL (7.2-11.7); MONO # 0.2 K/uL (0.0-0.8); MONO % 1.1 % (0.0-10.0); NEUT # 13.5 K/uL (1.8-7.0); NEUT % 85.4 % (50.0-75.0); NRBC % 0.2 % (0.0-2.0); RBC 3.58 Mil/uL (3.80-5.20); RED CELL DISTRIBUTION WIDTH 16.5 % (11.5-14.5); WHITE BLOOD COUNT 15.9 K/uL (4.8-10.8)
[2018-03-12 07:58] LABS: ALB/GLOB RATIO 0.9 (1.0-2.1); ALT/SGPT 47 U/L (9-52); AST/SGOT 48 U/L (14-36); BLOOD UREA NITROGEN 35 mg/dL (7-17); CALCIUM 7.1 mg/dl (8.6-10.4); GFR NON-AFRICAN AMERICAN > 60
[2018-03-12] MEDS: Albumin Human 25% (12.5 gm/50 ml) IV SCH ×2 (11:38→18:21)
--- NOTE | 2018-03-12 15:02 | RAD ---
Date of service: 03/12/2018 HISTORY: Sepsis, abdominal pain. COMPARISON: Multiple serial examinations preceding the most recent study: March 11, 2018 FINDINGS: LUNGS: Worsening pulmonary edema. PLEURA: Stable bilateral pleural effusions. CARDIOVASCULAR: Atherosclerotic calcifications identified primarily aortic arch. No significant interval change compared to the prior examination(s). OSSEOUS STRUCTURES: No significant abnormalities. VISUALIZED UPPER ABDOMEN: Normal. OTHER FINDINGS: Stable, satisfactory position ventilatory, vascular and nasogastric apparatus. IMPRESSION: Worsening pulmonary edema. Stable, satisfactory position ventilatory, vascular and nasogastric apparatus.
--- NOTE | 2018-03-12 15:42 | CP.PCM.PN ---
Subjective - Date & Time of Evaluation Date of Evaluation: 03/12/18 Time of Evaluation: 13:00 - Subjective Subjective: clinically same Objective - Vital Signs/Intake and Output Vital Signs (last 24 hours): Temp Pulse Resp BP Pulse Ox 98.9 F 97 H 16 107/72 99 03/11/18 16:00 03/12/18 07:15 03/12/18 07:15 03/12/18 12:06 03/12/18 07:15 Intake and Output: 03/12/18 03/12/18 06:59 18:59 Intake Total 1621.7 250 Output Total 670 Balance 951.7 250 - Medications Medications: Current Medications Albumin Human (Albumin Human 25% (12.5 Gm/50 Ml)) 12.5 gm IV Q8H [facility] Stop: 03/13/18 02:16 Last Admin: 03/12/18 11:38 Dose: 12.5 gm Dextrose (Dextrose 50% Inj) 0 ml IV STAT PRN; Protocol PRN Reason: Hypoglycemia Protocol Last Admin: 03/11/18 00:13 Dose: 50 ml Dextrose (Glutose 15) 0 gm PO ONCE PRN; Protocol PRN Reason: Hypoglycemia Protocol Glucagon (Glucagen Diagnostic Kit) 0 mg IM STAT PRN; Protocol PRN Reason: Hypoglycemia Protocol Hydromorphone HCl (Dilaudid) 0.25 mg IVP Q4H PRN PRN Reason: Pain, severe (8-10) Last Admin: 03/12/18 04:59 Dose: 0.25 mg Furosemide 100 mg/ Sodium (Chloride) 100 mls @ 5 mls/hr IV .Q20H [facility] Last Admin: 03/12/18 12:06 Dose: 5 mls/hr Norepinephrine Bitartrate 4 mg (/ Sodium Chloride) 250 mls @ 15 mls/hr IV .[id number] PRN; Protocol PRN Reason: TITRATE PER MD ORDER Last Titration: 03/12/18 07:31 Dose: 3 mcg/min, 11.25 mls/hr Propofol (Diprivan) 1,000 mg in 100 mls @ 10.733 mls/hr IV .Q9H20M PRN; Protocol PRN Reason: TITRATE PER MD ORDER Last Titration: 03/11/18 21:10 Dose: 8 mcg/kg/min, 4.579 mls/hr Fentanyl Citrate 2,500 mcg/ (Sodium Chloride) 250 mls @ 28.62 mls/hr IV .Q8H45M [facility]; Protocol Last Admin: 03/12/18 14:02 Dose: 3 mcg/kg/hr, 28.62 mls/hr Heparin Sodium/Sodium Chloride (Heparin 15361 Units/250ml 1/2 Normal Saline) 25,000 units in 250 mls @ 9.54 mls/hr IV .Q24H PRN; Protocol PRN Reason: ADJUST RATE PER PROTOCOL Last Titration: 03/11/18 19:35 Dose: 6.482 units/kg/hr, 6.184 mls/hr Dextrose (Dextrose 5% In Water 1000 Ml) 1,000 mls @ 60 mls/hr IV .[id number] [facility] Last Admin: 03/12/18 11:40 Dose: Not Given Amino Acids/Electrolytes/Dextrose (Clinimix 5/20 % "E" (1000 Ml)) 1,000 mls @ 42 mls/hr IV .[id number] [facility] Stop: 03/13/18 17:48 Fat Emulsion Intravenous (Intralipid 20%) 500 mls @ 42 mls/hr IV ONCE ONE Stop: 03/13/18 05:54 Insulin Aspart (Novolog) 0 unit SC Q6H [facility]; Protocol Last Admin: 03/12/18 12:05 Dose: Not Given Pantoprazole Sodium (Protonix Inj) 40 mg IVP Q12H [facility] Last Admin: 03/12/18 10:04 Dose: 40 mg Vitamin A (Vitamin A & D Oint Ud Foilpak) 0.5 ea TOP Q4 PRN PRN Reason: Lip dryness Last Admin: 03/11/18 23:26 Dose: 0.5 ea - Labs Labs: 03/12/18 07:22 03/12/18 07:22 PT 15.7 SECONDS (9.7-12.2) H 03/11/18 04:15 INR 1.4 03/11/18 04:15 APTT 44 SECONDS (21-34) H D 03/12/18 09:59 - Constitutional Appears: Well - Head Exam Head Exam: ATRAUMATIC, NORMAL INSPECTION, NORMOCEPHALIC - Eye Exam Eye Exam: EOMI, Normal appearance, PERRL Pupil Exam: NORMAL ACCOMODATION, PERRL - ENT Exam ENT Exam: Mucous Membranes Moist, Normal Exam - Neck Exam Neck Exam: Full ROM, Normal Inspection. absent: Lymphadenopathy - Respiratory Exam Respiratory Exam: Decreased Breath Sounds - Cardiovascular Exam Cardiovascular Exam: REGULAR RHYTHM, +S1, +S2 - GI/Abdominal Exam GI & Abdominal Exam: Soft, Diminished Bowel Sounds - Rectal Exam Rectal Exam: Deferred
--- NOTE | 2018-03-12 15:52 | CP.PCM.PN ---
Subjective - Date & Time of Evaluation Date of Evaluation: 03/12/18 Time of Evaluation: 09:00 - Subjective Subjective: afeb on vent family at bedside Objective - Vital Signs/Intake and Output Vital Signs (last 24 hours): Temp Pulse Resp BP Pulse Ox 98.9 F 97 H 16 107/72 99 03/11/18 16:00 03/12/18 07:15 03/12/18 07:15 03/12/18 12:06 03/12/18 07:15 Intake and Output: 03/12/18 03/12/18 06:59 18:59 Intake Total 1621.7 250 Output Total 670 Balance 951.7 250 - Medications Medications: Current Medications Albumin Human (Albumin Human 25% (12.5 Gm/50 Ml)) 12.5 gm IV Q8H [facility] Stop: 03/13/18 02:16 Last Admin: 03/12/18 11:38 Dose: 12.5 gm Dextrose (Dextrose 50% Inj) 0 ml IV STAT PRN; Protocol PRN Reason: Hypoglycemia Protocol Last Admin: 03/11/18 00:13 Dose: 50 ml Dextrose (Glutose 15) 0 gm PO ONCE PRN; Protocol PRN Reason: Hypoglycemia Protocol Glucagon (Glucagen Diagnostic Kit) 0 mg IM STAT PRN; Protocol PRN Reason: Hypoglycemia Protocol Hydromorphone HCl (Dilaudid) 0.25 mg IVP Q4H PRN PRN Reason: Pain, severe (8-10) Last Admin: 03/12/18 04:59 Dose: 0.25 mg Furosemide 100 mg/ Sodium (Chloride) 100 mls @ 5 mls/hr IV .Q20H [facility] Last Admin: 03/12/18 12:06 Dose: 5 mls/hr Norepinephrine Bitartrate 4 mg (/ Sodium Chloride) 250 mls @ 15 mls/hr IV .[id number] PRN; Protocol PRN Reason: TITRATE PER MD ORDER Last Titration: 03/12/18 07:31 Dose: 3 mcg/min, 11.25 mls/hr Propofol (Diprivan) 1,000 mg in 100 mls @ 10.733 mls/hr IV .Q9H20M PRN; Protocol PRN Reason: TITRATE PER MD ORDER Last Titration: 03/11/18 21:10 Dose: 8 mcg/kg/min, 4.579 mls/hr Fentanyl Citrate 2,500 mcg/ (Sodium Chloride) 250 mls @ 28.62 mls/hr IV .Q8H45M [facility]; Protocol Last Admin: 03/12/18 14:02 Dose: 3 mcg/kg/hr, 28.62 mls/hr Heparin Sodium/Sodium Chloride (Heparin 29331 Units/250ml 1/2 Normal Saline) 25,000 units in 250 mls @ 9.54 mls/hr IV .Q24H [facility]; Protocol PRN Reason: ADJUST RATE PER PROTOCOL Last Titration: 03/11/18 19:35 Dose: 6.482 units/kg/hr, 6.184 mls/hr Dextrose (Dextrose 5% In Water 1000 Ml) 1,000 mls @ 60 mls/hr IV .[id number] [facility] Last Admin: 03/12/18 11:40 Dose: Not Given Amino Acids/Electrolytes/Dextrose (Clinimix 5/20 % "E" (1000 Ml)) 1,000 mls @ 42 mls/hr IV .[id number] [facility] Stop: 03/13/18 17:48 Fat Emulsion Intravenous (Intralipid 20%) 500 mls @ 42 mls/hr IV ONCE ONE Stop: 03/13/18 05:54 Insulin Aspart (Novolog) 0 unit SC Q6H [facility]; Protocol Last Admin: 03/12/18 12:05 Dose: Not Given Pantoprazole Sodium (Protonix Inj) 40 mg IVP Q12H [facility] Last Admin: 03/12/18 10:04 Dose: 40 mg Vitamin A (Vitamin A & D Oint Ud Foilpak) 0.5 ea TOP Q4 PRN PRN Reason: Lip dryness Last Admin: 03/11/18 23:26 Dose: 0.5 ea - Labs Labs: 03/12/18 07:22 03/12/18 07:22 PT 15.7 SECONDS (9.7-12.2) H 03/11/18 04:15 INR 1.4 03/11/18 04:15 APTT 44 SECONDS (21-34) H D 03/12/18 09:59 - Constitutional Appears: Confused, Chronically Ill - Head Exam Head Exam: NORMOCEPHALIC - Eye Exam Eye Exam: absent: Scleral icterus - ENT Exam ENT Exam: Mucous Membranes Dry - Neck Exam Neck Exam: absent: Lymphadenopathy - Respiratory Exam Respiratory Exam: Decreased Breath Sounds - Cardiovascular Exam Cardiovascular Exam: REGULAR RHYTHM - GI/Abdominal Exam GI & Abdominal Exam: Distended, Soft - Rectal Exam Rectal Exam: Deferred - Exam Exam: NORMAL INSPECTION - Extremities Exam Extremities Exam: absent: Pedal Edema - Back Exam Back Exam: absent: CVA tenderness (L), CVA tenderness (R) - Neurological Exam Neurological Exam: Altered Assessment and Plan - Assessment and Plan (Free Text) Assessment: cont vent support Plan: cont iv antibiotics for 14 days follow up CXR
[2018-03-12] MEDS: Heparin25000 units/250ml 1/2NS 25,000 UNITS/250 ML BAG IV PRN (16:14)
--- NOTE | 2018-03-12 17:56 | CP.CCUPN ---
<Michael Tamayo - Last Filed: 03/12/18 17:53> CCU Subjective - Physician Review Events Since Last Encounter (Free Text): 03/12/18 17:54 No acute events overnight Subjective (Free Text): 03/12/18 17:54 PGY1 Critical Care Progress Note for Dr. Gallegos Patient was seen and evaluated at bedside this morning. Patient intubated. Today she is status post second Look Laparotomy with resection of partial necrotic small bowel with Dr. Freitas. Patient is currently on levophed. Patient unable to provide a 12 point ROS due to clinical condition. Critical Care Time Spent (in minutes): 35 CCU Objective - Vital Signs / Intake & Output Vital Signs (Last 4 hours): Vital Signs Temp Pulse Resp BP Pulse Ox 03/12/18 17:09 112 H 17 110/90 99 03/12/18 17:00 113 H 16 98 03/12/18 16:09 116 H 16 114/38 L 98 03/12/18 16:00 98.9 F 115 H 16 98 03/12/18 15:08 114 H 16 122/35 L 98 03/12/18 15:00 112 H 16 98 03/12/18 14:08 111 H 16 106/39 L 98 03/12/18 14:00 114 H 15 99 Intake and Output (Last 8hrs): Intake & Output 03/12/18 03/12/18 03/12/18 06:59 14:59 22:59 Intake Total 765.7 1010.0 426.6 Output Total 670 320 140 Balance 95.7 690.0 286.6 Weight 210 lb Intake: IV 250 150 Intake, IV Amount 765.7 760.0 276.6 Left Wrist 49.6 57.2 24.3 Medial Port 32 0 Prox Port 11.3 0 Right Distal IJ 40 40 15 Right Distal Port 480 510 180 Internal Jugular Right Medial Port 152.8 152.8 57.3 Internal Jugular Oral 0 0 Output: Gastric Amount 100 Right 100 Drainage 20 20 LEFT JEJUNOSTOMY 20 20 Urine 550 320 120 Urethral (Tran) 550 320 120 Stool 0 Emesis 0 - Physical Exam Head: Positive for: Atraumatic, Normocephalic Pupils: Positive for: PERRL Extroacular Muscles: Positive for: EOMI Respiratory/Chest: Positive for: Clear to Auscultation, Other (on vent, intubated) Cardiovascular: Positive for: Normal S1, S2. Negative for: Murmurs Abdomen: Positive for: Tenderness (oozing from abdominal surgical site.) Upper Extremity: Positive for: Edema Lower Extremity: Positive for: Edema Neurological: Positive for: Other (sedated) Skin: Positive for: Warm, Normal Color - Medications Active Medications: Active Medications Generic Name Dose Route Start Last Admin Trade Name Freq PRN Reason Stop Dose Admin Albumin Human 12.5 gm 03/12/18 10:15 03/12/18 11:38 Albumin Human 25% (12.5 Gm/50 Ml) IV 03/13/18 02:16 12.5 gm Q8H ARPIT Administration Dextrose 0 ml 03/06/18 15:02 03/11/18 00:13 Dextrose 50% Inj IV 50 ml STAT PRN Administration Hypoglycemia Protocol Protocol Dextrose 0 gm 03/06/18 15:02 Glutose 15 PO ONCE PRN Hypoglycemia Protocol Protocol Glucagon 0 mg 03/06/18 15:02 Glucagen Diagnostic Kit IM STAT PRN Hypoglycemia Protocol Protocol Hydromorphone HCl 0.25 mg 03/10/18 20:35 03/12/18 04:59 Dilaudid IVP 0.25 mg Q4H PRN Administration Pain, severe (8-10) Furosemide 100 mg/ Sodium 100 mls @ 5 mls/hr 03/10/18 10:15 03/12/18 12:06 Chloride IV 5 mls/hr .Q20H ARPIT Administration 5 MG/HR Norepinephrine Bitartrate 4 mg 250 mls @ 15 mls/hr 03/10/18 12:30 03/12/18 07:31 / Sodium Chloride IV 3 mcg/min .[id number] PRN 11.25 mls/hr TITRATE PER MD ORDER Titration Protocol 4 MCG/MIN Propofol 1,000 mg in 100 mls @ 10.733 mls/hr 03/10/18 23:16 03/11/18 21:10 Diprivan IV 8 mcg/kg/min .[id number] PRN 4.579 mls/hr TITRATE PER MD ORDER Titration Protocol 18.75 MCG/KG/MIN Fentanyl Citrate 2,500 mcg/ 250 mls @ 28.62 mls/hr 03/10/18 23:30 03/12/18 14:02 Sodium Chloride IV 3 mcg/kg/hr .Q8H45M ARPIT 28.62 mls/hr Administration Protocol 3 MCG/KG/HR Heparin Sodium/Sodium Chloride 25,000 units in 250 mls @ 9.54 mls/hr 03/10/18 23:20 03/12/18 16:18 Heparin 57645 Units/250ml 1/2 Normal Saline IV 8.5 units/kg/hr .Q24H PRN 8.109 mls/hr ADJUST RATE PER PROTOCOL Titration Protocol 10 UNITS/KG/HR Dextrose 1,000 mls @ 60 mls/hr 03/11/18 00:45 03/12/18 11:40 Dextrose 5% In Water 1000 Ml IV Not Given .[id number] [facility] Amino Acids/Electrolytes/Dextrose 1,000 mls @ 42 mls/hr 03/12/18 18:00 Clinimix 5/20 % "E" (1000 Ml) IV 03/13/18 17:48 .[id number] [facility] Fat Emulsion Intravenous 500 mls @ 42 mls/hr 03/12/18 18:00 Intralipid 20% IV 03/13/18 05:54 ONCE ONE Meropenem 500 mg/ Sodium 100 mls @ 100 mls/hr 03/12/18 17:00 Chloride IVPB Q8H [facility] Protocol Insulin Aspart 0 unit 03/06/18 18:00 03/12/18 12:05 Novolog SC Not Given Q6H [facility] Protocol Pantoprazole Sodium 40 mg 03/07/18 10:00 03/12/18 10:04 Protonix Inj IVP 40 mg Q12H [facility] Administration Vitamin A 0.5 ea 03/10/18 20:33 03/11/18 23:26 Vitamin A & D Oint Ud Foilpak TOP 0.5 ea Q4 PRN Administration Lip dryness - Patient Studies Lab Studies: Microbiology Studies 03/06/18 13:17 Blood Culture - Final Blood NO GROWTH AFTER 5 DAYS Gram Stain - Final TEST NOT PERFORMED 03/06/18 13:17 Blood Culture - Final Blood NO GROWTH AFTER 5 DAYS Gram Stain - Final TEST NOT PERFORMED Lab Studies 03/12/18 03/12/18 03/12/18 Range/Units 17:49 11:31 09:59 WBC (4.8-10.8) K/uL RBC (3.80-5.20) Mil/uL Hgb (11.0-16.0) g/dL Hct (34.0-47.0) % MCV (81.0-99.0) fL MCH (27.0-31.0) pg MCHC (33.0-37.0) g/dL RDW (11.5-14.5) % Plt Count (130-400) K/uL MPV (7.2-11.7) fL Neut % (Auto) (50.0-75.0) % Lymph % (Auto) (20.0-40.0) % Crowley % (Auto) (0.0-10.0) % Eos % (Auto) (0.0-4.0) % Baso % (Auto) (0.0-2.0) % Neut # (Auto) (1.8-7.0) K/uL Lymph # (Auto) (1.0-4.3) K/uL Crowley # (Auto) (0.0-0.8) K/uL Eos # (Auto) (0.0-0.7) K/uL Baso # (Auto) (0.0-0.2) K/uL APTT 44 H D (21-34) SECONDS Puncture Site pCO2 (35-45) mm/Hg pO2 (80-100) mm/Hg HCO3 (21-28) mmol/L ABG pH (7.35-7.45) ABG Total CO2 (22-28) mmol/L ABG O2 Saturation (95-98) % ABG Base Excess (-2.0-3.0) mmol/L Michele Test ABG Potassium (3.6-5.2) mmol/L A-a O2 Difference mm/Hg Respiratory Index Sodium (132-148) mmol/l Chloride (98-107) mmol/L Glucose (65-105) mg/dl Lactate (0.7-2.1) mmol/L Vent Mode Mechanical Rate FiO2 % Tidal Volume PEEP Potassium (3.6-5.2) mmol/L Carbon Dioxide (22-30) mmol/L Anion Gap (10-20) BUN (7-17) mg/dL Creatinine (0.7-1.2) mg/dL Est GFR ( Amer) Est GFR (Non-Af Amer) POC Glucose (mg/dL) 79 93 (65-110) mg/dL Random Glucose (65-105) mg/dL Calcium (8.6-10.4) mg/dl Phosphorus (2.5-4.5) mg/dL Magnesium (1.6-2.3) mg/dL Total Bilirubin (0.2-1.3) mg/dL AST (14-36) U/L ALT (9-52) U/L Alkaline Phosphatase (38-126) U/L Total Protein (6.3-8.3) g/dL Albumin (3.5-5.0) g/dL Globulin (2.2-3.9) gm/dL Albumin/Globulin Ratio (1.0-2.1) Arterial Blood Potassium (3.6-5.2) mmol/L 03/12/18 03/12/18 03/12/18 Range/Units 07:22 07:22 06:42 WBC 15.9 H (4.8-10.8) K/uL RBC 3.58 L (3.80-5.20) Mil/uL Hgb 11.1 (11.0-16.0) g/dL Hct 33.7 L (34.0-47.0) % MCV 94.2 (81.0-99.0) fL MCH 30.9 (27.0-31.0) pg MCHC 32.8 L (33.0-37.0) g/dL RDW 16.5 H (11.5-14.5) % Plt Count 131 (130-400) K/uL MPV 10.5 (7.2-11.7) fL Neut % (Auto) 85.4 H (50.0-75.0) % Lymph % (Auto) 11.8 L (20.0-40.0) % Crowley % (Auto) 1.1 (0.0-10.0) % Eos % (Auto) 1.5 (0.0-4.0) % Baso % (Auto) 0.2 (0.0-2.0) % Neut # (Auto) 13.5 H (1.8-7.0) K/uL Lymph # (Auto) 1.9 (1.0-4.3) K/uL Crowley # (Auto) 0.2 (0.0-0.8) K/uL Eos # (Auto) 0.2 (0.0-0.7) K/uL Baso # (Auto) 0.0 (0.0-0.2) K/uL APTT (21-34) SECONDS Puncture Site pCO2 (35-45) mm/Hg pO2 (80-100) mm/Hg HCO3 (21-28) mmol/L ABG pH (7.35-7.45) ABG Total CO2 (22-28) mmol/L ABG O2 Saturation (95-98) % ABG Base Excess (-2.0-3.0) mmol/L Michele Test ABG Potassium (3.6-5.2) mmol/L A-a O2 Difference mm/Hg Respiratory Index Sodium 141 (132-148) mmol/l Chloride 106 (98-107) mmol/L Glucose (65-105) mg/dl Lactate (0.7-2.1) mmol/L Vent Mode Mechanical Rate FiO2 % Tidal Volume PEEP Potassium 3.3 L (3.6-5.2) mmol/L Carbon Dioxide 27 (22-30) mmol/L Anion Gap 11 (10-20) BUN 35 H (7-17) mg/dL Creatinine 0.8 (0.7-1.2) mg/dL Est GFR ( Amer) > 60 Est GFR (Non-Af Amer) > 60 POC Glucose (mg/dL) 102 (65-110) mg/dL Random Glucose 94 (65-105) mg/dL Calcium 7.1 L (8.6-10.4) mg/dl Phosphorus 3.0 (2.5-4.5) mg/dL Magnesium 1.7 (1.6-2.3) mg/dL Total Bilirubin 4.8 H (0.2-1.3) mg/dL AST 48 H (14-36) U/L ALT 47 (9-52) U/L Alkaline Phosphatase 120 (38-126) U/L Total Protein 4.5 L (6.3-8.3) g/dL Albumin 2.0 L (3.5-5.0) g/dL Globulin 2.4 (2.2-3.9) gm/dL Albumin/Globulin Ratio 0.9 L (1.0-2.1) Arterial Blood Potassium (3.6-5.2) mmol/L 03/12/18 03/12/18 03/11/18 Range/Units 05:00 03:12 23:46 WBC (4.8-10.8) K/uL RBC (3.80-5.20) Mil/uL Hgb (11.0-16.0) g/dL Hct (34.0-47.0) % MCV (81.0-99.0) fL MCH (27.0-31.0) pg MCHC (33.0-37.0) g/dL RDW (11.5-14.5) % Plt Count (130-400) K/uL MPV (7.2-11.7) fL Neut % (Auto) (50.0-75.0) % Lymph % (Auto) (20.0-40.0) % Crowley % (Auto) (0.0-10.0) % Eos % (Auto) (0.0-4.0) % Baso % (Auto) (0.0-2.0) % Neut # (Auto) (1.8-7.0) K/uL Lymph # (Auto) (1.0-4.3) K/uL Crowley # (Auto) (0.0-0.8) K/uL Eos # (Auto) (0.0-0.7) K/uL Baso # (Auto) (0.0-0.2) K/uL APTT 54 H D (21-34) SECONDS Puncture Site Rr pCO2 32 L (35-45) mm/Hg pO2 177 H (80-100) mm/Hg HCO3 25.7 (21-28) mmol/L ABG pH 7.48 H (7.35-7.45) ABG Total CO2 24.8 (22-28) mmol/L ABG O2 Saturation 99.1 H (95-98) % ABG Base Excess 0.9 (-2.0-3.0) mmol/L Michele Test Pos ABG Potassium 3.0 L (3.6-5.2) mmol/L A-a O2 Difference 211.0 mm/Hg Respiratory Index 1.2 Sodium 146.0 (132-148) mmol/l Chloride 115.0 H (98-107) mmol/L Glucose 94 (65-105) mg/dl Lactate 3.0 H (0.7-2.1) mmol/L Vent Mode Prvc Mechanical Rate 16 FiO2 60.0 % Tidal Volume 450 PEEP 5 Potassium (3.6-5.2) mmol/L Carbon Dioxide (22-30) mmol/L Anion Gap (10-20) BUN (7-17) mg/dL Creatinine (0.7-1.2) mg/dL Est GFR ( Amer) Est GFR (Non-Af Amer) POC Glucose (mg/dL) 98 (65-110) mg/dL Random Glucose (65-105) mg/dL Calcium (8.6-10.4) mg/dl Phosphorus (2.5-4.5) mg/dL Magnesium (1.6-2.3) mg/dL Total Bilirubin (0.2-1.3) mg/dL AST (14-36) U/L ALT (9-52) U/L Alkaline Phosphatase (38-126) U/L Total Protein (6.3-8.3) g/dL Albumin (3.5-5.0) g/dL Globulin (2.2-3.9) gm/dL Albumin/Globulin Ratio (1.0-2.1) Arterial Blood Potassium 3.0 L (3.6-5.2) mmol/L 03/11/18 Range/Units 18:09 WBC (4.8-10.8) K/uL RBC (3.80-5.20) Mil/uL Hgb (11.0-16.0) g/dL Hct (34.0-47.0) % MCV (81.0-99.0) fL MCH (27.0-31.0) pg MCHC (33.0-37.0) g/dL RDW (11.5-14.5) % Plt Count (130-400) K/uL MPV (7.2-11.7) fL Neut % (Auto) (50.0-75.0) % Lymph % (Auto) (20.0-40.0) % Crowley % (Auto) (0.0-10.0) % Eos % (Auto) (0.0-4.0) % Baso % (Auto) (0.0-2.0) % Neut # (Auto) (1.8-7.0) K/uL Lymph # (Auto) (1.0-4.3) K/uL Crowley # (Auto) (0.0-0.8) K/uL Eos # (Auto) (0.0-0.7) K/uL Baso # (Auto) (0.0-0.2) K/uL APTT (21-34) SECONDS Puncture Site pCO2 (35-45) mm/Hg pO2 (80-100) mm/Hg HCO3 (21-28) mmol/L ABG pH (7.35-7.45) ABG Total CO2 (22-28) mmol/L ABG O2 Saturation (95-98) % ABG Base Excess (-2.0-3.0) mmol/L Michele Test ABG Potassium (3.6-5.2) mmol/L A-a O2 Difference mm/Hg Respiratory Index Sodium (132-148) mmol/l Chloride (98-107) mmol/L Glucose (65-105) mg/dl Lactate (0.7-2.1) mmol/L Vent Mode Mechanical Rate FiO2 % Tidal Volume PEEP Potassium (3.6-5.2) mmol/L Carbon Dioxide (22-30) mmol/L Anion Gap (10-20) BUN (7-17) mg/dL Creatinine (0.7-1.2) mg/dL Est GFR ( Amer) Est GFR (Non-Af Amer) POC Glucose (mg/dL) 108 (65-110) mg/dL Random Glucose (65-105) mg/dL Calcium (8.6-10.4) mg/dl Phosphorus (2.5-4.5) mg/dL Magnesium (1.6-2.3) mg/dL Total Bilirubin (0.2-1.3) mg/dL AST (14-36) U/L ALT (9-52) U/L Alkaline Phosphatase (38-126) U/L Total Protein (6.3-8.3) g/dL Albumin (3.5-5.0) g/dL Globulin (2.2-3.9) gm/dL Albumin/Globulin Ratio (1.0-2.1) Arterial Blood Potassium (3.6-5.2) mmol/L Laboratory Results - last 24 hr 03/11/18 03/11/18 03/12/18 18:09 23:46 03:12 WBC RBC Hgb Hct MCV MCH MCHC RDW Plt Count MPV Neut % (Auto) Lymph % (Auto) Crowley % (Auto) Eos % (Auto) Baso % (Auto) Neut # (Auto) Lymph # (Auto) Crowley # (Auto) Eos # (Auto) Baso # (Auto) APTT 54 H D Puncture Site pCO2 pO2 HCO3 ABG pH ABG Total CO2 ABG O2 Saturation ABG Base Excess Michele Test ABG Potassium A-a O2 Difference Respiratory Index Sodium Chloride Glucose Lactate Vent Mode Mechanical Rate FiO2 Tidal Volume PEEP Potassium Carbon Dioxide Anion Gap BUN Creatinine Est GFR ( Amer) Est GFR (Non-Af Amer) POC Glucose (mg/dL) 108 98 Random Glucose Calcium Phosphorus Magnesium Total Bilirubin AST ALT Alkaline Phosphatase Total Protein Albumin Globulin Albumin/Globulin Ratio Arterial Blood Potassium 03/12/18 03/12/18 03/12/18 05:00 06:42 07:22 WBC 15.9 H RBC 3.58 L Hgb 11.1 Hct 33.7 L MCV 94.2 MCH 30.9 MCHC 32.8 L RDW 16.5 H Plt Count 131 MPV 10.5 Neut % (Auto) 85.4 H Lymph % (Auto) 11.8 L Crowley % (Auto) 1.1 Eos % (Auto) 1.5 Baso % (Auto) 0.2 Neut # (Auto) 13.5 H Lymph # (Auto) 1.9 Crowley # (Auto) 0.2 Eos # (Auto) 0.2 Baso # (Auto) 0.0 APTT Puncture Site Rr pCO2 32 L pO2 177 H HCO3 25.7 ABG pH 7.48 H ABG Total CO2 24.8 ABG O2 Saturation 99.1 H ABG Base Excess 0.9 Michele Test Pos ABG Potassium 3.0 L A-a O2 Difference 211.0 Respiratory Index 1.2 Sodium 146.0 Chloride 115.0 H Glucose 94 Lactate 3.0 H Vent Mode Prvc Mechanical Rate 16 FiO2 60.0 Tidal Volume 450 PEEP 5 Potassium Carbon Dioxide Anion Gap BUN Creatinine Est GFR ( Amer) Est GFR (Non-Af Amer) POC Glucose (mg/dL) 102 Random Glucose Calcium Phosphorus Magnesium Total Bilirubin AST ALT Alkaline Phosphatase Total Protein Albumin Globulin Albumin/Globulin Ratio Arterial Blood Potassium 3.0 L 11/03/12/18 03/12/18 07:22 09:59 11:31 WBC RBC Hgb Hct MCV MCH MCHC RDW Plt Count MPV Neut % (Auto) Lymph % (Auto) Crowley % (Auto) Eos % (Auto) Baso % (Auto) Neut # (Auto) Lymph # (Auto) Crowley # (Auto) Eos # (Auto) Baso # (Auto) APTT 44 H D Puncture Site pCO2 pO2 HCO3 ABG pH ABG Total CO2 ABG O2 Saturation ABG Base Excess Michele Test ABG Potassium A-a O2 Difference Respiratory Index Sodium 141 Chloride 106 Glucose Lactate Vent Mode Mechanical Rate FiO2 Tidal Volume PEEP Potassium 3.3 L Carbon Dioxide 27 Anion Gap 11 BUN 35 H Creatinine 0.8 Est GFR ( Amer) > 60 Est GFR (Non-Af Amer) > 60 POC Glucose (mg/dL) 93 Random Glucose 94 Calcium 7.1 L Phosphorus 3.0 Magnesium 1.7 Total Bilirubin 4.8 H AST 48 H ALT 47 Alkaline Phosphatase 120 Total Protein 4.5 L Albumin 2.0 L Globulin 2.4 Albumin/Globulin Ratio 0.9 L Arterial Blood Potassium 03/12/18 17:49 WBC RBC Hgb Hct MCV MCH MCHC RDW Plt Count MPV Neut % (Auto) Lymph % (Auto) Crowley % (Auto) Eos % (Auto) Baso % (Auto) Neut # (Auto) Lymph # (Auto) Crowley # (Auto) Eos # (Auto) Baso # (Auto) APTT Puncture Site pCO2 pO2 HCO3 ABG pH ABG Total CO2 ABG O2 Saturation ABG Base Excess Michele Test ABG Potassium A-a O2 Difference Respiratory Index Sodium Chloride Glucose Lactate Vent Mode Mechanical Rate FiO2 Tidal Volume PEEP Potassium Carbon Dioxide Anion Gap BUN Creatinine Est GFR ( Amer) Est GFR (Non-Af Amer) POC Glucose (mg/dL) 79 Random Glucose Calcium Phosphorus Magnesium Total Bilirubin AST ALT Alkaline Phosphatase Total Protein Albumin Globulin Albumin/Globulin Ratio Arterial Blood Potassium Fingerstick Blood Sugar Results: 102 Review of Systems - Review of Systems Systems not reviewed;Unavailable: Acuity of Condition Critical Care Progress Note - Nutrition Nutrition: Nutrition Category Date Time Status NPO Diet [DIET] Diets 03/06/18 Breakfast Active Assessment/Plan - Assessment and Plan (Free Text) Assessment: Patient is an 82 yo female with a 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 She has been in a prison for approximately 2 months. She presented to ED today with nausea, vomiting, abdominal pain, and lethargy. CT A/P demonstrated ischemic bowel, occulded SMA, Hepatic Infarct, Renal Infarct and free air. 03/06: Patient is s/p Exploratory Lap with lysis of adhesions; today POD#6 Plan: Neuro: - Sedated on Fentanyl - Sedated on Propafol - Monitor mental status CV: - Atrial fibrillation observed on monitor - Vasopressin @ .04 - Levophed - ux consultant Pulm: - Trach culture pos Klebsiella - IV Merrem - Maintain spO2>92% - PRVC Vent GI: - CT A/P: ischemic small bowel, extensive pneumatosis intestinalis, mesenteric venous gas, intrahepatic portal venous gas, ascites - GI consulted Dr. Gomez; Recommendations appreciated - Surgery consulted Dr. Freitas; Recommendations appreciated * 118: Patient is s/p Exploratory Lap with lysis of adhesions; today POD#5 * 13: Patient is s/p second look Laparotomy with resection of partial necrotic small bowel; today POD#0 - Very poor prognosis Renal: - I's & O's - Replete electrolytes PRN Endo: - Maintain euglycemia - Hypoglycemia protocol Heme: - Monitor H/H - Monitor PT/INR/PTT - Hem/onc consulted Dr. Jonas; recommendations appreciated ID: Septic shock - leukocytosis resolved - IV Merrem PPx: VTE: holding heparin drip GI:PTx IVP Patient seen and case discussed in detail with Dr. Júnior Tamayo PGY1 <Gilberto Callejas - Last Filed: 03/12/18 18:58> CCU Objective - Vital Signs / Intake & Output Vital Signs (Last 4 hours): Vital Signs Temp Pulse Resp BP Pulse Ox 03/12/18 18:10 111 H 16 92/34 L 99 03/12/18 18:00 113 H 16 98 03/12/18 17:09 112 H 17 110/90 99 03/12/18 17:00 113 H 16 98 03/12/18 16:09 116 H 16 114/38 L 98 03/12/18 16:00 98.9 F 115 H 16 98 03/12/18 15:08 114 H 16 122/35 L 98 03/12/18 15:00 112 H 16 98 Intake and Output (Last 8hrs): Intake & Output 03/12/18 03/12/18 03/12/18 06:59 14:59 22:59 Intake Total 765.7 1010.0 542.8 Output Total 670 230 120 Balance 95.7 780.0 422.8 Weight 210 lb Intake: IV 250 150 Intake, IV Amount 765.7 760.0 392.8 Left Wrist 49.6 57.2 32.4 Medial Port 32 0 42 Prox Port 11.3 0 Right Distal IJ 40 40 20 Right Distal Port 480 510 222 Internal Jugular Right Medial Port 152.8 152.8 76.4 Internal Jugular Oral 0 0 Output: Gastric Amount 100 Right 100 Drainage 20 20 LEFT JEJUNOSTOMY 20 20 Urine 550 230 100 Urethral (Tran) 550 230 100 Stool 0 Emesis 0 - Medications Active Medications: Active Medications Generic Name Dose Route Start Last Admin Trade Name Freq PRN Reason Stop Dose Admin Albumin Human 12.5 gm 03/12/18 10:15 03/12/18 18:21 Albumin Human 25% (12.5 Gm/50 Ml) IV 03/13/18 02:16 12.5 gm Q8H [facility] Administration Dextrose 0 ml 03/06/18 15:02 03/11/18 00:13 Dextrose 50% Inj IV 50 ml STAT PRN Administration Hypoglycemia Protocol Protocol Dextrose 0 gm 03/06/18 15:02 Glutose 15 PO ONCE PRN Hypoglycemia Protocol Protocol Glucagon 0 mg 03/06/18 15:02 Glucagen Diagnostic Kit IM STAT PRN Hypoglycemia Protocol Protocol Hydromorphone HCl 0.25 mg 03/10/18 20:35 03/12/18 04:59 Dilaudid IVP 0.25 mg Q4H PRN Administration Pain, severe (8-10) Furosemide 100 mg/ Sodium 100 mls @ 5 mls/hr 03/10/18 10:15 03/12/18 12:06 Chloride IV 5 mls/hr .Q20H [facility] Administration 5 MG/HR Norepinephrine Bitartrate 4 mg 250 mls @ 15 mls/hr 03/10/18 12:30 03/12/18 07:31 / Sodium Chloride IV 3 mcg/min .[id number] PRN 11.25 mls/hr TITRATE PER MD ORDER Titration Protocol 4 MCG/MIN Propofol 1,000 mg in 100 mls @ 10.733 mls/hr 03/10/18 23:16 03/11/18 21:10 Diprivan IV 8 mcg/kg/min .Q9H20M PRN 4.579 mls/hr TITRATE PER MD ORDER Titration Protocol 18.75 MCG/KG/MIN Fentanyl Citrate 2,500 mcg/ 250 mls @ 28.62 mls/hr 03/10/18 23:30 03/12/18 14:02 Sodium Chloride IV 3 mcg/kg/hr .Q8H45M [facility] 28.62 mls/hr Administration Protocol 3 MCG/KG/HR Heparin Sodium/Sodium Chloride 25,000 units in 250 mls @ 9.54 mls/hr 03/10/18 23:20 03/12/18 16:18 Heparin 38723 Units/250ml 1/2 Normal Saline IV 8.5 units/kg/hr .Q24H PRN 8.109 mls/hr ADJUST RATE PER PROTOCOL Titration Protocol 10 UNITS/KG/HR Dextrose 1,000 mls @ 60 mls/hr 03/11/18 00:45 03/12/18 11:40 Dextrose 5% In Water 1000 Ml IV Not Given .[id number] [facility] Amino Acids/Electrolytes/Dextrose 1,000 mls @ 42 mls/hr 03/12/18 18:00 1 05/12/17 18:15 Clinimix 5/20 % "E" (1000 Ml) IV 03/13/18 17:48 42 mls/hr .[id number] [facility] Administration Fat Emulsion Intravenous 500 mls @ 42 mls/hr 03/12/18 18:00 03/12/18 18:16 Intralipid 20% IV 03/13/18 05:54 42 mls/hr ONCE ONE Administration Meropenem 500 mg/ Sodium 100 mls @ 100 mls/hr 03/12/18 17:00 03/12/18 18:15 Chloride IVPB 100 mls/hr Q8H [facility] Administration Protocol Insulin Aspart 0 unit 03/06/18 18:00 03/12/18 18:17 Novolog SC Not Given Q6H [facility] Protocol Pantoprazole Sodium 40 mg 03/07/18 10:00 03/12/18 10:04 Protonix Inj IVP 40 mg Q12H [facility] Administration Vitamin A 0.5 ea 03/10/18 20:33 03/11/18 23:26 Vitamin A & D Oint Ud Foilpak TOP 0.5 ea Q4 PRN Administration Lip dryness - Patient Studies Lab Studies: Lab Studies 03/12/18 03/12/18 03/12/18 Range/Units 17:49 11:31 09:59 WBC (4.8-10.8) K/uL RBC (3.80-5.20) Mil/uL Hgb (11.0-16.0) g/dL Hct (34.0-47.0) % MCV (81.0-99.0) fL MCH (27.0-31.0) pg MCHC (33.0-37.0) g/dL RDW (11.5-14.5) % Plt Count (130-400) K/uL MPV (7.2-11.7) fL Neut % (Auto) (50.0-75.0) % Lymph % (Auto) (20.0-40.0) % Crowley % (Auto) (0.0-10.0) % Eos % (Auto) (0.0-4.0) % Baso % (Auto) (0.0-2.0) % Neut # (Auto) (1.8-7.0) K/uL Lymph # (Auto) (1.0-4.3) K/uL Crowley # (Auto) (0.0-0.8) K/uL Eos # (Auto) (0.0-0.7) K/uL Baso # (Auto) (0.0-0.2) K/uL APTT 44 H D (21-34) SECONDS Puncture Site pCO2 (35-45) mm/Hg pO2 (80-100) mm/Hg HCO3 (21-28) mmol/L ABG pH (7.35-7.45) ABG Total CO2 (22-28) mmol/L ABG O2 Saturation (95-98) % ABG Base Excess (-2.0-3.0) mmol/L Michele Test ABG Potassium (3.6-5.2) mmol/L A-a O2 Difference mm/Hg Respiratory Index Sodium (132-148) mmol/l Chloride (98-107) mmol/L Glucose (65-105) mg/dl Lactate (0.7-2.1) mmol/L Vent Mode Mechanical Rate FiO2 % Tidal Volume PEEP Potassium (3.6-5.2) mmol/L Carbon Dioxide (22-30) mmol/L Anion Gap (10-20) BUN (7-17) mg/dL Creatinine (0.7-1.2) mg/dL Est GFR ( Amer) Est GFR (Non-Af Amer) POC Glucose (mg/dL) 79 93 (65-110) mg/dL Random Glucose (65-105) mg/dL Calcium (8.6-10.4) mg/dl Phosphorus (2.5-4.5) mg/dL Magnesium (1.6-2.3) mg/dL Total Bilirubin (0.2-1.3) mg/dL AST (14-36) U/L ALT (9-52) U/L Alkaline Phosphatase (38-126) U/L Total Protein (6.3-8.3) g/dL Albumin (3.5-5.0) g/dL Globulin (2.2-3.9) gm/dL Albumin/Globulin Ratio (1.0-2.1) Arterial Blood Potassium (3.6-5.2) mmol/L 03/12/18 03/12/18 03/12/18 Range/Units 07:22 07:22 06:42 WBC 15.9 H (4.8-10.8) K/uL RBC 3.58 L (3.80-5.20) Mil/uL Hgb 11.1 (11.0-16.0) g/dL Hct 33.7 L (34.0-47.0) % MCV 94.2 (81.0-99.0) fL MCH 30.9 (27.0-31.0) pg MCHC 32.8 L (33.0-37.0) g/dL RDW 16.5 H (11.5-14.5) % Plt Count 131 (130-400) K/uL MPV 10.5 (7.2-11.7) fL Neut % (Auto) 85.4 H (50.0-75.0) % Lymph % (Auto) 11.8 L (20.0-40.0) % Crowley % (Auto) 1.1 (0.0-10.0) % Eos % (Auto) 1.5 (0.0-4.0) % Baso % (Auto) 0.2 (0.0-2.0) % Neut # (Auto) 13.5 H (1.8-7.0) K/uL Lymph # (Auto) 1.9 (1.0-4.3) K/uL Crowley # (Auto) 0.2 (0.0-0.8) K/uL Eos # (Auto) 0.2 (0.0-0.7) K/uL Baso # (Auto) 0.0 (0.0-0.2) K/uL APTT (21-34) SECONDS Puncture Site pCO2 (35-45) mm/Hg pO2 (80-100) mm/Hg HCO3 (21-28) mmol/L ABG pH (7.35-7.45) ABG Total CO2 (22-28) mmol/L ABG O2 Saturation (95-98) % ABG Base Excess (-2.0-3.0) mmol/L Michele Test ABG Potassium (3.6-5.2) mmol/L A-a O2 Difference mm/Hg Respiratory Index Sodium 141 (132-148) mmol/l Chloride 106 (98-107) mmol/L Glucose (65-105) mg/dl Lactate (0.7-2.1) mmol/L Vent Mode Mechanical Rate FiO2 % Tidal Volume PEEP Potassium 3.3 L (3.6-5.2) mmol/L Carbon Dioxide 27 (22-30) mmol/L Anion Gap 11 (10-20) BUN 35 H (7-17) mg/dL Creatinine 0.8 (0.7-1.2) mg/dL Est GFR ( Amer) > 60 Est GFR (Non-Af Amer) > 60 POC Glucose (mg/dL) 102 (65-110) mg/dL Random Glucose 94 (65-105) mg/dL Calcium 7.1 L (8.6-10.4) mg/dl Phosphorus 3.0 (2.5-4.5) mg/dL Magnesium 1.7 (1.6-2.3) mg/dL Total Bilirubin 4.8 H (0.2-1.3) mg/dL AST 48 H (14-36) U/L ALT 47 (9-52) U/L Alkaline Phosphatase 120 (38-126) U/L Total Protein 4.5 L (6.3-8.3) g/dL Albumin 2.0 L (3.5-5.0) g/dL Globulin 2.4 (2.2-3.9) gm/dL Albumin/Globulin Ratio 0.9 L (1.0-2.1) Arterial Blood Potassium (3.6-5.2) mmol/L 03/12/18 03/12/18 03/11/18 Range/Units 05:00 03:12 23:46 WBC (4.8-10.8) K/uL RBC (3.80-5.20) Mil/uL Hgb (11.0-16.0) g/dL Hct (34.0-47.0) % MCV (81.0-99.0) fL MCH (27.0-31.0) pg MCHC (33.0-37.0) g/dL RDW (11.5-14.5) % Plt Count (130-400) K/uL MPV (7.2-11.7) fL Neut % (Auto) (50.0-75.0) % Lymph % (Auto) (20.0-40.0) % Crowley % (Auto) (0.0-10.0) % Eos % (Auto) (0.0-4.0) % Baso % (Auto) (0.0-2.0) % Neut # (Auto) (1.8-7.0) K/uL Lymph # (Auto) (1.0-4.3) K/uL Crowley # (Auto) (0.0-0.8) K/uL Eos # (Auto) (0.0-0.7) K/uL Baso # (Auto) (0.0-0.2) K/uL APTT 54 H D (21-34) SECONDS Puncture Site Rr pCO2 32 L (35-45) mm/Hg pO2 177 H (80-100) mm/Hg HCO3 25.7 (21-28) mmol/L ABG pH 7.48 H (7.35-7.45) ABG Total CO2 24.8 (22-28) mmol/L ABG O2 Saturation 99.1 H (95-98) % ABG Base Excess 0.9 (-2.0-3.0) mmol/L Michele Test Pos ABG Potassium 3.0 L (3.6-5.2) mmol/L A-a O2 Difference 211.0 mm/Hg Respiratory Index 1.2 Sodium 146.0 (132-148) mmol/l Chloride 115.0 H (98-107) mmol/L Glucose 94 (65-105) mg/dl Lactate 3.0 H (0.7-2.1) mmol/L Vent Mode Prvc Mechanical Rate 16 FiO2 60.0 % Tidal Volume 450 PEEP 5 Potassium (3.6-5.2) mmol/L Carbon Dioxide (22-30) mmol/L Anion Gap (10-20) BUN (7-17) mg/dL Creatinine (0.7-1.2) mg/dL Est GFR ( Amer) Est GFR (Non-Af Amer) POC Glucose (mg/dL) 98 (65-110) mg/dL Random Glucose (65-105) mg/dL Calcium (8.6-10.4) mg/dl Phosphorus (2.5-4.5) mg/dL Magnesium (1.6-2.3) mg/dL Total Bilirubin (0.2-1.3) mg/dL AST (14-36) U/L ALT (9-52) U/L Alkaline Phosphatase (38-126) U/L Total Protein (6.3-8.3) g/dL Albumin (3.5-5.0) g/dL Globulin (2.2-3.9) gm/dL Albumin/Globulin Ratio (1.0-2.1) Arterial Blood Potassium 3.0 L (3.6-5.2) mmol/L 03/11/18 Range/Units 18:09 WBC (4.8-10.8) K/uL RBC (3.80-5.20) Mil/uL Hgb (11.0-16.0) g/dL Hct (34.0-47.0) % MCV (81.0-99.0) fL MCH (27.0-31.0) pg MCHC (33.0-37.0) g/dL RDW (11.5-14.5) % Plt Count (130-400) K/uL MPV (7.2-11.7) fL Neut % (Auto) (50.0-75.0) % Lymph % (Auto) (20.0-40.0) % Crowley % (Auto) (0.0-10.0) % Eos % (Auto) (0.0-4.0) % Baso % (Auto) (0.0-2.0) % Neut # (Auto) (1.8-7.0) K/uL Lymph # (Auto) (1.0-4.3) K/uL Crowley # (Auto) (0.0-0.8) K/uL Eos # (Auto) (0.0-0.7) K/uL Baso # (Auto) (0.0-0.2) K/uL APTT (21-34) SECONDS Puncture Site pCO2 (35-45) mm/Hg pO2 (80-100) mm/Hg HCO3 (21-28) mmol/L ABG pH (7.35-7.45) ABG Total CO2 (22-28) mmol/L ABG O2 Saturation (95-98) % ABG Base Excess (-2.0-3.0) mmol/L Michele Test ABG Potassium (3.6-5.2) mmol/L A-a O2 Difference mm/Hg Respiratory Index Sodium (132-148) mmol/l Chloride (98-107) mmol/L Glucose (65-105) mg/dl Lactate (0.7-2.1) mmol/L Vent Mode Mechanical Rate FiO2 % Tidal Volume PEEP Potassium (3.6-5.2) mmol/L Carbon Dioxide (22-30) mmol/L Anion Gap (10-20) BUN (7-17) mg/dL Creatinine (0.7-1.2) mg/dL Est GFR ( Amer) Est GFR (Non-Af Amer) POC Glucose (mg/dL) 108 (65-110) mg/dL Random Glucose (65-105) mg/dL Calcium (8.6-10.4) mg/dl Phosphorus (2.5-4.5) mg/dL Magnesium (1.6-2.3) mg/dL Total Bilirubin (0.2-1.3) mg/dL AST (14-36) U/L ALT (9-52) U/L Alkaline Phosphatase (38-126) U/L Total Protein (6.3-8.3) g/dL Albumin (3.5-5.0) g/dL Globulin (2.2-3.9) gm/dL Albumin/Globulin Ratio (1.0-2.1) Arterial Blood Potassium (3.6-5.2) mmol/L Laboratory Results - last 24 hr 03/11/18 03/11/18 03/12/18 18:09 23:46 03:12 WBC RBC Hgb Hct MCV MCH MCHC RDW Plt Count MPV Neut % (Auto) Lymph % (Auto) Crowley % (Auto) Eos % (Auto) Baso % (Auto) Neut # (Auto) Lymph # (Auto) Crowley # (Auto) Eos # (Auto) Baso # (Auto) APTT 54 H D Puncture Site pCO2 pO2 HCO3 ABG pH ABG Total CO2 ABG O2 Saturation ABG Base Excess Michele Test ABG Potassium A-a O2 Difference Respiratory Index Sodium Chloride Glucose Lactate Vent Mode Mechanical Rate FiO2 Tidal Volume PEEP Potassium Carbon Dioxide Anion Gap BUN Creatinine Est GFR ( Amer) Est GFR (Non-Af Amer) POC Glucose (mg/dL) 108 98 Random Glucose Calcium Phosphorus Magnesium Total Bilirubin AST ALT Alkaline Phosphatase Total Protein Albumin Globulin Albumin/Globulin Ratio Arterial Blood Potassium 03/12/18 03/12/18 03/12/18 05:00 06:42 07:22 WBC 15.9 H RBC 3.58 L Hgb 11.1 Hct 33.7 L MCV 94.2 MCH 30.9 MCHC 32.8 L RDW 16.5 H Plt Count 131 MPV 10.5 Neut % (Auto) 85.4 H Lymph % (Auto) 11.8 L Crowley % (Auto) 1.1 Eos % (Auto) 1.5 Baso % (Auto) 0.2 Neut # (Auto) 13.5 H Lymph # (Auto) 1.9 Crowley # (Auto) 0.2 Eos # (Auto) 0.2 Baso # (Auto) 0.0 APTT Puncture Site Rr pCO2 32 L pO2 177 H HCO3 25.7 ABG pH 7.48 H ABG Total CO2 24.8 ABG O2 Saturation 99.1 H ABG Base Excess 0.9 Michele Test Pos ABG Potassium 3.0 L A-a O2 Difference 211.0 Respiratory Index 1.2 Sodium 146.0 Chloride 115.0 H Glucose 94 Lactate 3.0 H Vent Mode Prvc Mechanical Rate 16 FiO2 60.0 Tidal Volume 450 PEEP 5 Potassium Carbon Dioxide Anion Gap BUN Creatinine Est GFR ( Amer) Est GFR (Non-Af Amer) POC Glucose (mg/dL) 102 Random Glucose Calcium Phosphorus Magnesium Total Bilirubin AST ALT Alkaline Phosphatase Total Protein Albumin Globulin Albumin/Globulin Ratio Arterial Blood Potassium 3.0 L 03/12/18 03/12/18 03/12/18 07:22 09:59 11:31 WBC RBC Hgb Hct MCV MCH MCHC RDW Plt Count MPV Neut % (Auto) Lymph % (Auto) Crowley % (Auto) Eos % (Auto) Baso % (Auto) Neut # (Auto) Lymph # (Auto) Crowley # (Auto) Eos # (Auto) Baso # (Auto) APTT 44 H D Puncture Site pCO2 pO2 HCO3 ABG pH ABG Total CO2 ABG O2 Saturation ABG Base Excess Michele Test ABG Potassium A-a O2 Difference Respiratory Index Sodium 141 Chloride 106 Glucose Lactate Vent Mode Mechanical Rate FiO2 Tidal Volume PEEP Potassium 3.3 L Carbon Dioxide 27 Anion Gap 11 BUN 35 H Creatinine 0.8 Est GFR ( Amer) > 60 Est GFR (Non-Af Amer) > 60 POC Glucose (mg/dL) 93 Random Glucose 94 Calcium 7.1 L Phosphorus 3.0 Magnesium 1.7 Total Bilirubin 4.8 H AST 48 H ALT 47 Alkaline Phosphatase 120 Total Protein 4.5 L Albumin 2.0 L Globulin 2.4 Albumin/Globulin Ratio 0.9 L Arterial Blood Potassium 03/12/18 17:49 WBC RBC Hgb Hct MCV MCH MCHC RDW Plt Count MPV Neut % (Auto) Lymph % (Auto) Crowley % (Auto) Eos % (Auto) Baso % (Auto) Neut # (Auto) Lymph # (Auto) Crowley # (Auto) Eos # (Auto) Baso # (Auto) APTT Puncture Site pCO2 pO2 HCO3 ABG pH ABG Total CO2 ABG O2 Saturation ABG Base Excess Michele Test ABG Potassium A-a O2 Difference Respiratory Index Sodium Chloride Glucose Lactate Vent Mode Mechanical Rate FiO2 Tidal Volume PEEP Potassium Carbon Dioxide Anion Gap BUN Creatinine Est GFR ( Amer) Est GFR (Non-Af Amer) POC Glucose (mg/dL) 79 Random Glucose Calcium Phosphorus Magnesium Total Bilirubin AST ALT Alkaline Phosphatase Total Protein Albumin Globulin Albumin/Globulin Ratio Arterial Blood Potassium Critical Care Progress Note - Nutrition Nutrition: Nutrition Category Date Time Status NPO Diet [DIET] Diets 03/06/18 Breakfast Active Attending/Attestation - Attestation I have personally seen and examined this patient.: Yes I have fully participated in the care of the patient.: Yes I have reviewed all pertinent clinical information: Yes Notes (Text): 03/12/18 18:56 patient seen and examined in the intensive care unit. Assessment and plan as per resident note Patient started on TPN Continue antibiotics IV albumin Monitored unit output Continue present treatment
[2018-03-12] MEDS ORDERED: Fat Emulsion 20% IV 500 ML IV ONE (18:00)
[2018-03-12] MEDS: Meropenem 500 MG in Sodium Chloride 0.9% 100 ML IVPB SCH (18:15)
--- NOTE | 2018-03-12 18:16 | CP.PCM.PN ---
Subjective - Date & Time of Evaluation Date of Evaluation: 03/12/18 Time of Evaluation: 18:13 - Subjective Subjective: General Surgery Progress Note for Dr. Freitas This 82F was seen this AM intubated in the ICU. Localized to pain. On minimal levopfed making minimal urine on a lasix drip. Objective - Vital Signs/Intake and Output Vital Signs (last 24 hours): Temp Pulse Resp BP Pulse Ox 98.9 F 112 H 17 110/90 99 03/12/18 16:00 03/12/18 17:09 03/12/18 17:09 03/12/18 17:09 03/12/18 17:09 Intake and Output: 03/12/18 03/12/18 06:59 18:59 Intake Total 1621.7 1436.6 Output Total 670 460 Balance 951.7 976.6 - Medications Medications: Current Medications Albumin Human (Albumin Human 25% (12.5 Gm/50 Ml)) 12.5 gm IV Q8H [facility] Stop: 03/13/18 02:16 Last Admin: 03/12/18 11:38 Dose: 12.5 gm Dextrose (Dextrose 50% Inj) 0 ml IV STAT PRN; Protocol PRN Reason: Hypoglycemia Protocol Last Admin: 03/11/18 00:13 Dose: 50 ml Dextrose (Glutose 15) 0 gm PO ONCE PRN; Protocol PRN Reason: Hypoglycemia Protocol Glucagon (Glucagen Diagnostic Kit) 0 mg IM STAT PRN; Protocol PRN Reason: Hypoglycemia Protocol Hydromorphone HCl (Dilaudid) 0.25 mg IVP Q4H PRN PRN Reason: Pain, severe (8-10) Last Admin: 03/12/18 04:59 Dose: 0.25 mg Furosemide 100 mg/ Sodium (Chloride) 100 mls @ 5 mls/hr IV .Q20H [facility] Last Admin: 03/12/18 12:06 Dose: 5 mls/hr Norepinephrine Bitartrate 4 mg (/ Sodium Chloride) 250 mls @ 15 mls/hr IV .[id number] PRN; Protocol PRN Reason: TITRATE PER MD ORDER Last Titration: 03/12/18 07:31 Dose: 3 mcg/min, 11.25 mls/hr Propofol (Diprivan) 1,000 mg in 100 mls @ 10.733 mls/hr IV .Q9H20M PRN; Protocol PRN Reason: TITRATE PER MD ORDER Last Titration: 03/11/18 21:10 Dose: 8 mcg/kg/min, 4.579 mls/hr Fentanyl Citrate 2,500 mcg/ (Sodium Chloride) 250 mls @ 28.62 mls/hr IV .Q8H45M [facility]; Protocol Last Admin: 03/12/18 14:02 Dose: 3 mcg/kg/hr, 28.62 mls/hr Heparin Sodium/Sodium Chloride (Heparin 12820 Units/250ml 1/2 Normal Saline) 25,000 units in 250 mls @ 9.54 mls/hr IV .Q24H PRN; Protocol PRN Reason: ADJUST RATE PER PROTOCOL Last Titration: 03/12/18 16:18 Dose: 8.5 units/kg/hr, 8.109 mls/hr Dextrose (Dextrose 5% In Water 1000 Ml) 1,000 mls @ 60 mls/hr IV .[id number] [facility] Last Admin: 03/12/18 11:40 Dose: Not Given Amino Acids/Electrolytes/Dextrose (Clinimix 5/20 % "E" (1000 Ml)) 1,000 mls @ 42 mls/hr IV .[id number] [facility] Stop: 03/13/18 17:48 Fat Emulsion Intravenous (Intralipid 20%) 500 mls @ 42 mls/hr IV ONCE ONE Stop: 03/13/18 05:54 Meropenem 500 mg/ Sodium (Chloride) 100 mls @ 100 mls/hr IVPB Q8H [facility]; Protocol Insulin Aspart (Novolog) 0 unit SC Q6H [facility]; Protocol Last Admin: 03/12/18 12:05 Dose: Not Given Pantoprazole Sodium (Protonix Inj) 40 mg IVP Q12H [facility] Last Admin: 03/12/18 10:04 Dose: 40 mg Vitamin A (Vitamin A & D Oint Ud Foilpak) 0.5 ea TOP Q4 PRN PRN Reason: Lip dryness Last Admin: 03/11/18 23:26 Dose: 0.5 ea - Labs Labs: 03/12/18 07:22 03/12/18 07:22 PT 15.7 SECONDS (9.7-12.2) H 03/11/18 04:15 INR 1.4 03/11/18 04:15 APTT 44 SECONDS (21-34) H D 03/12/18 09:59 - Constitutional Appears: Non-toxic, No Acute Distress - Head Exam Head Exam: ATRAUMATIC, NORMOCEPHALIC - Eye Exam Eye Exam: EOMI, Normal appearance - Respiratory Exam Respiratory Exam: NORMAL BREATHING PATTERN - Cardiovascular Exam Cardiovascular Exam: +S1, +S2 - GI/Abdominal Exam GI & Abdominal Exam: Soft, Tenderness. absent: Distended, Firm, Guarding, Rigid - Neurological Exam Neurological Exam: Alert, Awake - Psychiatric Exam Psychiatric exam: Normal Affect, Normal Mood - Skin Skin Exam: Dry, Intact Assessment and Plan - Assessment and Plan (Free Text) Assessment: 82F with mesenteric ischemia & pneumotosis s/p return to OR with SBR POD 1 Continue medical management per ICU Monitor urine urin output Wean from pressors Further recs per Dr. Fortino Manriquez PGY3
[2018-03-12] MEDS: Propofol 10 mg/ml 1,000 MG/100 ML VIAL IV PRN (21:45)
--- NOTE | 2018-03-12 22:32 | CP.PCM.PN ---
Subjective - Date & Time of Evaluation Date of Evaluation: 03/12/18 Time of Evaluation: 19:00 - Subjective Subjective: Vented, on levophed Objective - Vital Signs/Intake and Output Vital Signs (last 24 hours): Temp Pulse Resp BP Pulse Ox 98.9 F 111 H 16 92/34 L 99 03/12/18 16:00 03/12/18 18:10 03/12/18 18:10 03/12/18 18:10 03/12/18 18:10 Intake and Output: 03/12/18 03/13/18 18:59 06:59 Intake Total 1552.8 Output Total 350 Balance 1202.8 - Medications Medications: Current Medications Albumin Human (Albumin Human 25% (12.5 Gm/50 Ml)) 12.5 gm IV Q8H [facility] Stop: 03/13/18 02:16 Last Admin: 03/12/18 18:21 Dose: 12.5 gm Dextrose (Dextrose 50% Inj) 0 ml IV STAT PRN; Protocol PRN Reason: Hypoglycemia Protocol Last Admin: 03/11/18 00:13 Dose: 50 ml Dextrose (Glutose 15) 0 gm PO ONCE PRN; Protocol PRN Reason: Hypoglycemia Protocol Glucagon (Glucagen Diagnostic Kit) 0 mg IM STAT PRN; Protocol PRN Reason: Hypoglycemia Protocol Hydromorphone HCl (Dilaudid) 0.25 mg IVP Q4H PRN PRN Reason: Pain, severe (8-10) Last Admin: 03/12/18 19:36 Dose: 0.25 mg Furosemide 100 mg/ Sodium (Chloride) 100 mls @ 5 mls/hr IV .Q20H [facility] Last Admin: 03/12/18 12:06 Dose: 5 mls/hr Norepinephrine Bitartrate 4 mg (/ Sodium Chloride) 250 mls @ 15 mls/hr IV .[id number] PRN; Protocol PRN Reason: TITRATE PER MD ORDER Last Titration: 03/12/18 07:31 Dose: 3 mcg/min, 11.25 mls/hr Propofol (Diprivan) 1,000 mg in 100 mls @ 10.733 mls/hr IV .Q9H20M PRN; Protocol PRN Reason: TITRATE PER MD ORDER Last Titration: 03/11/18 21:10 Dose: 8 mcg/kg/min, 4.579 mls/hr Fentanyl Citrate 2,500 mcg/ (Sodium Chloride) 250 mls @ 28.62 mls/hr IV .Q8H45M [facility]; Protocol Last Admin: 03/12/18 14:02 Dose: 3 mcg/kg/hr, 28.62 mls/hr Heparin Sodium/Sodium Chloride (Heparin 44472 Units/250ml 1/2 Normal Saline) 25,000 units in 250 mls @ 9.54 mls/hr IV .Q24H PRN; Protocol PRN Reason: ADJUST RATE PER PROTOCOL Last Titration: 03/12/18 16:18 Dose: 8.5 units/kg/hr, 8.109 mls/hr Dextrose (Dextrose 5% In Water 1000 Ml) 1,000 mls @ 60 mls/hr IV .[id number] [facility] Last Admin: 03/12/18 11:40 Dose: Not Given Amino Acids/Electrolytes/Dextrose (Clinimix 5/20 % "E" (1000 Ml)) 1,000 mls @ 42 mls/hr IV .[id number] [facility] Stop: 03/13/18 17:48 Last Admin: 03/12/18 18:15 Dose: 42 mls/hr Fat Emulsion Intravenous (Intralipid 20%) 500 mls @ 42 mls/hr IV ONCE ONE Stop: 03/13/18 05:54 Last Admin: 03/12/18 18:16 Dose: 42 mls/hr Meropenem 500 mg/ Sodium (Chloride) 100 mls @ 100 mls/hr IVPB Q8H [facility]; Protocol Last Admin: 03/12/18 18:15 Dose: 100 mls/hr Insulin Aspart (Novolog) 0 unit SC Q6H [facility]; Protocol Last Admin: 03/12/18 18:17 Dose: Not Given Pantoprazole Sodium (Protonix Inj) 40 mg IVP Q12H [facility] Last Admin: 03/12/18 10:04 Dose: 40 mg Vitamin A (Vitamin A & D Oint Ud Foilpak) 0.5 ea TOP Q4 PRN PRN Reason: Lip dryness Last Admin: 03/11/18 23:26 Dose: 0.5 ea - Labs Labs: 03/12/18 07:22 03/12/18 07:22 PT 15.7 SECONDS (9.7-12.2) H 03/11/18 04:15 INR 1.4 03/11/18 04:15 APTT 42 SECONDS (21-34) H 03/12/18 20:38 - Head Exam Head Exam: ATRAUMATIC - Eye Exam Eye Exam: Normal appearance - ENT Exam ENT Exam: Mucous Membranes Dry - Respiratory Exam Respiratory Exam: NORMAL BREATHING PATTERN - Cardiovascular Exam Cardiovascular Exam: +S1, +S2 - GI/Abdominal Exam GI & Abdominal Exam: Normal Bowel Sounds Assessment and Plan (1) Anemia Assessment & Plan: anemia of chronic disease. 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
[2018-03-12] MEDS: Vitamins A & D Oint UD Foilpak TOP PRN (23:51)
--- NOTE | 2018-03-13 00:29 | OP ---
PROCEDURE DATE: 03/11/2018 SURGEON: Armando Freitas MD PALLIATIVE CARE COORDINATOR: Dr. Kate. ANESTHESIA: General. ANESTHESIOLOGIST: Dr. Victor and ZEFERINO Pastor. PREOPERATIVE DIAGNOSIS: Mesenteric ischemia. POSTOPERATIVE DIAGNOSIS: Mesenteric ischemia. PROCEDURE: Second look laparotomy with resection of necrotic small bowel. DESCRIPTION OF OPERATION: With the patient in the supine position under adequate general anesthesia, the abdomen was prepped and draped in the usual sterile manner. The patient had a midline incision from her previous laparotomy and the leyda were removed and sutures cut to enter the peritoneal cavity. On entering the peritoneal cavity, there was a large amount of cloudy bloody mildly foul-smelling liquid. The small bowel initially visualized was focally pink although very thin walled, and care was taken to avoid damage by manipulating the small bowel. There were noted to be multiple enterotomies primarily in one stretch of small bowel which appeared duskier in color compared to the remainder of the small bowel, and this segment was isolated with OLBO staple lines and then using a Harmonic scalpel, the mesentery was divided to remove approximately 2 feet of small bowel. The small bowel was left in discontinuity as it was not felt that anastomosis was advisable. The patient did have a jejunostomy exiting the left mid abdomen, which remained intact. The abdomen was again irrigated with warm saline and closure was performed with running fascial suture of #1 double-standard PDS and the skin was closed with leyda. Dry sterile dressing was applied. The patient tolerated the procedure well and was transferred back to the recovery room in critical but stable condition. Armando Freitas MD
[2018-03-13] MEDS: (Novolog) Insulin Aspart, Recombinant 100 u/ml 10 ml vial SC SCH ×4 (00:30→17:53)
[2018-03-13] MEDS: Meropenem 500 MG in Sodium Chloride 0.9% 100 ML IVPB SCH ×3 (01:39→17:04)
[2018-03-13] MEDS: Albumin Human 25% (12.5 gm/50 ml) IV SCH (02:33)
[2018-03-13] MEDS: HYDROmorphone 0.5 mg/0.5 ml ISec IVP PRN ×2 (04:00→12:58)
[2018-03-13 04:55] LABS: ARTERIAL BLOOD GAS HCO3 24.9 mmol/L (21-28); ARTERIAL BLOOD GAS HEMOGLOBIN 13.2 g/dL (11.7-17.4); ARTERIAL BLOOD GAS O2 SAT 100.7 % (95-98); ARTERIAL BLOOD GAS PCO2 40 mm/Hg (35-45); ARTERIAL BLOOD GAS PO2 97 mm/Hg (80-100)
[2018-03-13 05:37] LABS: BASO # 0.1 K/uL (0.0-0.2); NRBC % 0.2 % (0.0-2.0)
[2018-03-13 06:10] LABS: ALB/GLOB RATIO 0.9 (1.0-2.1); ALBUMIN 2.3 g/dL (3.5-5.0); ALT/SGPT 35 U/L (9-52); AST/SGOT 48 U/L (14-36); BLOOD UREA NITROGEN 34 mg/dL (7-17); CALCIUM 6.9 mg/dl (8.6-10.4); GFR NON-AFRICAN AMERICAN > 60
[2018-03-13 06:28] LABS: BASO % 0.5 % (0.0-2.0); EOS # 1.3 K/uL (0.0-0.7); EOS % 9.5 % (0.0-4.0); LYMPH # 1.6 K/uL (1.0-4.3); LYMPH % 11.5 % (20.0-40.0); MEAN CELL VOLUME 90.6 fL (81.0-99.0); MEAN CORPUSCULAR HEMOGLOBIN 32.5 pg (27.0-31.0); MEAN CORPUSCULAR HGB CONC 35.8 g/dL (33.0-37.0); MEAN PLATELET VOLUME 11.2 fL (7.2-11.7); MONO # 0.1 K/uL (0.0-0.8); NEUT # 10.9 K/uL (1.8-7.0); NEUT % 77.5 % (50.0-75.0); RBC 2.81 Mil/uL (3.80-5.20); RED CELL DISTRIBUTION WIDTH 24.5 % (11.5-14.5); WHITE BLOOD COUNT 14.1 K/uL (4.8-10.8)
[2018-03-13 06:38] LABS: HEMOGLOBIN 9.1 g/dL (11.0-16.0)
[2018-03-13] MEDS: Magnesium Sulfate 1 gm in D5W 1 GM/100 ML BAG IVPB SCH ×2 (08:19→08:48)
--- NOTE | 2018-03-13 08:34 | RAD ---
Date of service: 03/13/2018 HISTORY: intubated COMPARISON: 03/12/2018 FINDINGS: LUNGS: Lines and tubes in stable position. Moderate to severe venous congestion. Dense confluent airspace opacification in the mid to lower lung zones with prominent bilateral pleural effusions. Multiple overlying wires and tubing projects over the mid to lower lung zones. PLEURA: As above. CARDIOVASCULAR: Aortic atherosclerotic calcification at the aortic. Cardiomegaly. OSSEOUS STRUCTURES: Degenerative changes in the spine and shoulders. VISUALIZED UPPER ABDOMEN: Normal. OTHER FINDINGS: None. IMPRESSION: Lines and tubes in stable position. Moderate to severe venous congestion. Dense confluent airspace opacification in the mid to lower lung zones with prominent bilateral pleural effusions. Multiple overlying wires and tubing projects over the mid to lower lung zones.
--- NOTE | 2018-03-13 08:41 | CP.PCM.PN ---
Subjective - Date & Time of Evaluation Date of Evaluation: 03/13/18 Time of Evaluation: 08:37 - Subjective Subjective: Patient is day # 1 post Explaratory lap surgery with Doctor Fortino. Patient is sedated on Fentanyl drip and intubated. patient looks very sick. WBC junaid to 14.1. Merrem IV on board. Sputum C&S positive Klebsiela. Feeding patient via NGT is not possible due to malfunctions of small intestines with possible necrosis. TPN started. patient still on Pressors. BP 109/50, HR 105, afebrile. Total Parmjit elevated at 5.0, protein level low 4.7. Family at bed side hoping for recovery. Objective - Vital Signs/Intake and Output Vital Signs (last 24 hours): Temp Pulse Resp BP Pulse Ox 98.9 F 105 H 17 109/50 L 98 03/12/18 16:00 03/13/18 08:00 03/13/18 08:00 03/13/18 07:27 03/13/18 08:00 Intake and Output: 03/13/18 03/13/18 06:59 18:59 Intake Total 298 Balance 298 - Medications Medications: Current Medications Dextrose (Dextrose 50% Inj) 0 ml IV STAT PRN; Protocol PRN Reason: Hypoglycemia Protocol Last Admin: 03/11/18 00:13 Dose: 50 ml Dextrose (Glutose 15) 0 gm PO ONCE PRN; Protocol PRN Reason: Hypoglycemia Protocol Glucagon (Glucagen Diagnostic Kit) 0 mg IM STAT PRN; Protocol PRN Reason: Hypoglycemia Protocol Hydromorphone HCl (Dilaudid) 0.25 mg IVP Q4H PRN PRN Reason: Pain, severe (8-10) Last Admin: 03/13/18 04:00 Dose: 0.25 mg Furosemide 100 mg/ Sodium (Chloride) 100 mls @ 5 mls/hr IV .Q20H [facility] Last Admin: 03/12/18 19:15 Dose: Not Given Norepinephrine Bitartrate 4 mg (/ Sodium Chloride) 250 mls @ 15 mls/hr IV .[id number] PRN; Protocol PRN Reason: TITRATE PER MD ORDER Last Titration: 03/12/18 07:31 Dose: 3 mcg/min, 11.25 mls/hr Propofol (Diprivan) 1,000 mg in 100 mls @ 10.733 mls/hr IV .Q9H20M PRN; Protocol PRN Reason: TITRATE PER MD ORDER Last Titration: 03/13/18 01:30 Dose: 7 mcg/kg/min, 4.007 mls/hr Fentanyl Citrate 2,500 mcg/ (Sodium Chloride) 250 mls @ 28.62 mls/hr IV .Q8H45M [facility]; Protocol Last Admin: 03/13/18 04:17 Dose: 4 mcg/kg/hr, 38.16 mls/hr Heparin Sodium/Sodium Chloride (Heparin 99589 Units/250ml 1/2 Normal Saline) 25,000 units in 250 mls @ 9.54 mls/hr IV .Q24H PRN; Protocol PRN Reason: ADJUST RATE PER PROTOCOL Last Titration: 03/12/18 22:20 Dose: 10.5 units/kg/hr, 10.017 mls/hr Dextrose (Dextrose 5% In Water 1000 Ml) 1,000 mls @ 60 mls/hr IV .[id number] [facility] Last Admin: 03/12/18 11:40 Dose: Not Given Amino Acids/Electrolytes/Dextrose (Clinimix 5/20 % "E" (1000 Ml)) 1,000 mls @ 42 mls/hr IV .[id number] [facility] Stop: 03/13/18 17:48 Last Admin: 03/12/18 18:15 Dose: 42 mls/hr Meropenem 500 mg/ Sodium (Chloride) 100 mls @ 100 mls/hr IVPB Q8H [facility]; Protocol Last Admin: 03/13/18 01:39 Dose: 100 mls/hr Magnesium Sulfate/Dextrose (Magnesium Sulfate 1 Gm/100 Ml D5w) 1 gm in 100 mls @ 300 mls/hr IVPB Q30M [facility] Stop: 03/13/18 09:04 Last Admin: 03/13/18 08:19 Dose: 300 mls/hr Insulin Aspart (Novolog) 0 unit SC Q6H [facility]; Protocol Last Admin: 03/13/18 08:19 Dose: 1 unit Pantoprazole Sodium (Protonix Inj) 40 mg IVP Q12H [facility] Last Admin: 03/12/18 22:30 Dose: 40 mg Vitamin A (Vitamin A & D Oint Ud Foilpak) 0.5 ea TOP Q4 PRN PRN Reason: Lip dryness Last Admin: 03/12/18 23:51 Dose: 0.5 ea - Labs Labs: 03/13/18 05:30 03/13/18 05:30 PT 15.7 SECONDS (9.7-12.2) H 03/11/18 04:15 INR 1.4 03/11/18 04:15 APTT 42 SECONDS (21-34) H 03/12/18 20:38 - Constitutional Appears: In Acute Distress, Chronically Ill - Head Exam Head Exam: ATRAUMATIC, NORMAL INSPECTION, NORMOCEPHALIC - Eye Exam Eye Exam: Normal appearance - ENT Exam Additional comments: ETT tube - Neck Exam Neck Exam: Normal Inspection - Respiratory Exam Additional comments: On MV support - Cardiovascular Exam Cardiovascular Exam: Tachycardia - GI/Abdominal Exam GI & Abdominal Exam: Distended, Hypoactive Bowel Sounds Additional comments: Large bulky abdominal dressing saturated with brownish drainage from the surgical wound - Rectal Exam Rectal Exam: Deferred - Exam Additional comments: Tran cath - Back Exam Back Exam: NORMAL INSPECTION - Neurological Exam Neurological Exam: Motor Sensory Deficit Neuro motor strength exam: Left Upper Extremity: 0, Right Upper Extremity: 0, Left Lower Extremity: 0, Right Lower Extremity: 0 - Psychiatric Exam Psychiatric exam: Flat Affect - Skin Skin Exam: Diaphoretic, Mottled, Pallor Assessment and Plan - Assessment and Plan (Free Text) Assessment: Patient examined in bed unresponsive, sedated and intubated, unable to fallow any commends. Skin is pale, sclera jaundiced. Large abdominal dressing with brownish drainage from the surgical wound. Bowel sounds absent. Breathing supported by the MV. BP low at 109/50 despite Pressors. There are no spontaneous movements of extremities. feedings via NGT are no advised due to malfunction of intestines. The 2nd explaratory lap revealed some necrosis there as per report. TPN initiated. Patient looks very sick and prognosis is not promising. I met with patient's son Darvin and reviewed patient's clinical presentation. I offered my concerns about patient's very complex condition and elicited his expectations. Darvin stated understanding the severity of condition but was still hoping that his mother could recover. We agreed to meet again in presence of ICU intesivist and discuss it all over again. Impression * This is a critically ill lady whose condition has been declining since the original Whiple procedure Sx in October/2017 * On this hospital stay patient had 2 Explaratory lap Sx, without curative treatment * Feedings are not possible due to intestinal malfunction * Patient is risk of malnutrition * Patient is at risk for pressure sores * Clinical condition looks very complex and prognosis is poor * Family is looking for some reassurance and miracle * I am worried that this patient is approaching end of her life Suggestions * Control symptoms and promote comfort * IVF and TPN for hydration/nutrition * Consider withdrawal of care and promotion of natural I will meet with deandra Boston today again and organize family meeting with presence of the ICU Meeting Facilitator
[2018-03-13 09:13] LABS: BASO # 0.1 K/uL (0.0-0.2); BASO % 0.4 % (0.0-2.0); EOS # 0.2 K/uL (0.0-0.7); EOS % 1.8 % (0.0-4.0); HEMOGLOBIN 8.5 g/dL (11.0-16.0); LYMPH # 1.4 K/uL (1.0-4.3); LYMPH % 10.8 % (20.0-40.0); MEAN CORPUSCULAR HEMOGLOBIN 32.2 pg (27.0-31.0); MEAN CORPUSCULAR HGB CONC 33.6 g/dL (33.0-37.0); MEAN PLATELET VOLUME 11.3 fL (7.2-11.7); MONO # 0.1 K/uL (0.0-0.8); MONO % 1.1 % (0.0-10.0); NEUT # 11.1 K/uL (1.8-7.0); NEUT % 85.9 % (50.0-75.0); NRBC % 0.3 % (0.0-2.0); RBC 2.63 Mil/uL (3.80-5.20); RED CELL DISTRIBUTION WIDTH 16.6 % (11.5-14.5); WHITE BLOOD COUNT 12.9 K/uL (4.8-10.8)
[2018-03-13 09:14] LABS: MEAN CELL VOLUME 95.7 fL (81.0-99.0)
[2018-03-13] MEDS: Furosemide 100 MG in Sodium Chloride 0.9% 90 ML IV SCH ×3 (09:34→21:26)
--- NOTE | 2018-03-13 10:23 | CP.PCM.PN ---
Subjective - Date & Time of Evaluation Date of Evaluation: 03/13/18 Time of Evaluation: 07:10 - Subjective Subjective: Surgery progress note for Dr. Freitas Pt seen and examined this AM. Patient was weaned off of levophed yesterday but remains on lasix drip and mechanically ventilated. pt still grimaces when changing the dressing and performing abdominal exam but is sedated. Objective - Vital Signs/Intake and Output Vital Signs (last 24 hours): Temp Pulse Resp BP Pulse Ox 100 F H 100 H 18 107/46 L 98 03/13/18 08:00 03/13/18 09:00 03/13/18 09:00 03/13/18 09:34 03/13/18 09:00 Intake and Output: 03/13/18 03/13/18 06:59 18:59 Intake Total 1566.4 110 Output Total 425 Balance 1141.4 110 - Medications Medications: Current Medications Dextrose (Dextrose 50% Inj) 0 ml IV STAT PRN; Protocol PRN Reason: Hypoglycemia Protocol Last Admin: 03/11/18 00:13 Dose: 50 ml Dextrose (Glutose 15) 0 gm PO ONCE PRN; Protocol PRN Reason: Hypoglycemia Protocol Glucagon (Glucagen Diagnostic Kit) 0 mg IM STAT PRN; Protocol PRN Reason: Hypoglycemia Protocol Hydromorphone HCl (Dilaudid) 0.25 mg IVP Q4H PRN PRN Reason: Pain, severe (8-10) Last Admin: 03/13/18 04:00 Dose: 0.25 mg Furosemide 100 mg/ Sodium (Chloride) 100 mls @ 5 mls/hr IV .Q20H ARPIT Last Admin: 03/13/18 09:34 Dose: 5 mls/hr Norepinephrine Bitartrate 4 mg (/ Sodium Chloride) 250 mls @ 15 mls/hr IV .[id number] PRN; Protocol PRN Reason: TITRATE PER MD ORDER Last Titration: 03/12/18 19:30 Dose: 0 mcg/min, 0 mls/hr Propofol (Diprivan) 1,000 mg in 100 mls @ 10.733 mls/hr IV .Q9H20M PRN; Protocol PRN Reason: TITRATE PER MD ORDER Last Titration: 03/13/18 01:30 Dose: 7 mcg/kg/min, 4.007 mls/hr Fentanyl Citrate 2,500 mcg/ (Sodium Chloride) 250 mls @ 28.62 mls/hr IV .Q8H45M ARPIT; Protocol Last Admin: 03/13/18 04:17 Dose: 4 mcg/kg/hr, 38.16 mls/hr Heparin Sodium/Sodium Chloride (Heparin 13460 Units/250ml 1/2 Normal Saline) 25,000 units in 250 mls @ 9.54 mls/hr IV .Q24H PRN; Protocol PRN Reason: ADJUST RATE PER PROTOCOL Last Titration: 03/13/18 10:06 Dose: 12.13 units/kg/hr, 11.572 mls/hr Dextrose (Dextrose 5% In Water 1000 Ml) 1,000 mls @ 60 mls/hr IV .[id number] ARPIT Last Admin: 03/13/18 03:00 Dose: Not Given Amino Acids/Electrolytes/Dextrose (Clinimix 5/20 % "E" (1000 Ml)) 1,000 mls @ 42 mls/hr IV .[id number] ARPIT Stop: 03/13/18 17:48 Last Admin: 03/12/18 18:15 Dose: 42 mls/hr Meropenem 500 mg/ Sodium (Chloride) 100 mls @ 100 mls/hr IVPB Q8H ARPIT; Protocol Last Admin: 03/13/18 09:36 Dose: 100 mls/hr Insulin Aspart (Novolog) 0 unit SC Q6H ARPIT; Protocol Last Admin: 03/13/18 08:19 Dose: 1 unit Pantoprazole Sodium (Protonix Inj) 40 mg IVP Q12H ARPIT Last Admin: 03/13/18 10:02 Dose: 40 mg Vitamin A (Vitamin A & D Oint Ud Foilpak) 0.5 ea TOP Q4 PRN PRN Reason: Lip dryness Last Admin: 03/12/18 23:51 Dose: 0.5 ea - Labs Labs: 03/13/18 08:21 03/13/18 05:30 PT 15.7 SECONDS (9.7-12.2) H 03/11/18 04:15 INR 1.4 03/11/18 04:15 APTT 44 SECONDS (21-34) H 03/13/18 08:21 - Constitutional Appears: Toxic, No Acute Distress - Head Exam Head Exam: ATRAUMATIC, NORMOCEPHALIC - Eye Exam Eye Exam: Normal appearance. absent: Conjunctival injection, Scleral icterus - ENT Exam ENT Exam: Mucous Membranes Moist, Normal Oropharynx - Respiratory Exam Respiratory Exam: absent: Accessory Muscle Use, Respiratory Distress Additional comments: mechanical ventilation - Cardiovascular Exam Cardiovascular Exam: Tachycardia, REGULAR RHYTHM - GI/Abdominal Exam GI & Abdominal Exam: Distended, Soft, Tenderness Additional comments: midline incision with leyda, draining large amount of foul smelling brown/palomares fluid - Extremities Exam Extremities Exam: Pedal Edema. 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 Further intervention will be futile at this time, if patient improves will consider re-exploration but outlook is grim PRN pain medication/sedation Discussed with Dr. Freitas, Mila Thompson, PGY2
[2018-03-13] MEDS ORDERED: metOLazone 5 MG TAB PO ONE (11:11)
[2018-03-13] MEDS: Vitamins A & D Oint UD Foilpak TOP PRN (11:26)
--- NOTE | 2018-03-13 14:21 | CP.CCUPN ---
<Emy Morse - Last Filed: 03/13/18 16:47> CCU Subjective - Physician Review Events Since Last Encounter (Free Text): 03/13/18 14:21 no over night events Subjective (Free Text): 03/13/18 14:20 Patient was seen and examined this morning. She is intubated on vent and sedated. Critical Care Time Spent (in minutes): 35 CCU Objective - Vital Signs / Intake & Output Vital Signs (Last 4 hours): Vital Signs Temp Pulse Resp BP Pulse Ox 03/13/18 13:00 100 H 16 97 03/13/18 12:27 99 H 16 103/37 L 96 03/13/18 12:00 99.4 F 101 H 16 96 03/13/18 11:27 104 H 16 97/32 L 96 03/13/18 11:00 104 H 16 98 03/13/18 10:27 108 H 16 101/35 L 98 Intake and Output (Last 8hrs): Intake & Output 03/12/18 03/13/18 03/13/18 22:59 06:59 14:59 Intake Total 1297.6 811.6 1389.3 Output Total 120 425 160 Balance 1177.6 386.6 1229.3 Weight 210 lb 217 lb 9.54 oz Intake: IV 440 8 492 Intake, IV Amount 857.6 803.6 897.3 Left Wrist 64.8 64.8 64.5 Medial Port 210 210 11.6 R Hand 300 Right Distal IJ 40 40 40 Right Distal Port 390 336 252 Internal Jugular Right Medial Port 152.8 152.8 229.2 Internal Jugular Oral 0 0 Output: Drainage 20 0 LEFT JEJUNOSTOMY 20 0 Urine 100 425 160 Urethral (Tran) 100 425 160 Stool 0 Emesis 0 - Physical Exam Head: Positive for: Atraumatic, Normocephalic Pupils: Positive for: PERRL Extroacular Muscles: Positive for: EOMI Respiratory/Chest: Positive for: Clear to Auscultation, Other (on vent, intubated) Cardiovascular: Positive for: Normal S1, S2. Negative for: Murmurs Abdomen: Positive for: Tenderness (oozing from abdominal surgical site.) Upper Extremity: Positive for: Edema Lower Extremity: Positive for: Edema Neurological: Positive for: Other (sedated) Skin: Positive for: Warm, Normal Color - Medications Active Medications: Active Medications Generic Name Dose Route Start Last Admin Trade Name Freq PRN Reason Stop Dose Admin Dextrose 0 ml 03/06/18 15:02 03/11/18 00:13 Dextrose 50% Inj IV 50 ml STAT PRN Administration Hypoglycemia Protocol Protocol Dextrose 0 gm 03/06/18 15:02 Glutose 15 PO ONCE PRN Hypoglycemia Protocol Protocol Glucagon 0 mg 03/06/18 15:02 Glucagen Diagnostic Kit IM STAT PRN Hypoglycemia Protocol Protocol Hydromorphone HCl 0.25 mg 03/10/18 20:35 03/13/18 12:58 Dilaudid IVP 0.25 mg Q4H PRN Administration Pain, severe (8-10) Norepinephrine Bitartrate 4 mg 250 mls @ 15 mls/hr 03/10/18 12:30 03/12/18 19:30 / Sodium Chloride IV 0 mcg/min .[id number] PRN 0 mls/hr TITRATE PER MD ORDER Titration Protocol 4 MCG/MIN Propofol 1,000 mg in 100 mls @ 10.733 mls/hr 03/10/18 23:16 03/13/18 11:10 Diprivan IV 0 mcg/kg/min .Q9H20M PRN 0 mls/hr TITRATE PER MD ORDER Titration Protocol 18.75 MCG/KG/MIN Fentanyl Citrate 2,500 mcg/ 250 mls @ 28.62 mls/hr 03/10/18 23:30 03/13/18 13:13 Sodium Chloride IV 3 mcg/kg/hr .Q8H45M ARPIT 28.62 mls/hr Titration Protocol 3 MCG/KG/HR Heparin Sodium/Sodium Chloride 25,000 units in 250 mls @ 9.54 mls/hr 03/10/18 23:20 03/13/18 10:06 Heparin 19428 Units/250ml 1/2 Normal Saline IV 12.13 units/kg/hr .Q24H PRN 11.572 mls/hr ADJUST RATE PER PROTOCOL Titration Protocol 10 UNITS/KG/HR Amino Acids/Electrolytes/Dextrose 1,000 mls @ 42 mls/hr 03/12/18 18:00 03/12/18 18:15 Clinimix 5/20 % "E" (1000 Ml) IV 03/13/18 17:48 42 mls/hr .[id number] ARPIT Administration Meropenem 500 mg/ Sodium 100 mls @ 100 mls/hr 03/12/18 17:00 03/13/18 09:36 Chloride IVPB 100 mls/hr Q8H ARPIT Administration Protocol Furosemide 100 mg/ Sodium 100 mls @ 10 mls/hr 03/13/18 12:00 03/13/18 11:45 Chloride IV Not Given .Q10H ARPIT 10 MG/HR Amino Acids/Electrolytes/Dextrose 1,000 mls @ 42 mls/hr 03/13/18 18:00 Clinimix 5/20 % "E" (1000 Ml) IV 03/14/18 17:48 .[id number] ARPIT Insulin Aspart 0 unit 03/06/18 18:00 03/13/18 11:25 Novolog SC 2 unit Q6H ARPIT Administration Protocol Pantoprazole Sodium 40 mg 03/07/18 10:00 03/13/18 10:02 Protonix Inj IVP 40 mg Q12H ARPIT Administration Vitamin A 0.5 ea 03/10/18 20:33 03/13/18 11:26 Vitamin A & D Oint Ud Foilpak TOP 0.5 ea Q4 PRN Administration Lip dryness - Patient Studies Lab Studies: Lab Studies 03/13/18 03/13/18 03/13/18 Range/Units 08:21 08:21 07:48 WBC 12.9 H (4.8-10.8) K/uL RBC 2.63 L (3.80-5.20) Mil/uL Hgb 8.5 L (11.0-16.0) g/dL Hct 25.2 L (34.0-47.0) % MCV 95.7 D (81.0-99.0) fL MCH 32.2 H (27.0-31.0) pg MCHC 33.6 (33.0-37.0) g/dL RDW 16.6 H (11.5-14.5) % Plt Count 187 (130-400) K/uL MPV 11.3 (7.2-11.7) fL Neut % (Auto) 85.9 H (50.0-75.0) % Lymph % (Auto) 10.8 L (20.0-40.0) % Custer % (Auto) 1.1 (0.0-10.0) % Eos % (Auto) 1.8 (0.0-4.0) % Baso % (Auto) 0.4 (0.0-2.0) % Neut # (Auto) 11.1 H (1.8-7.0) K/uL Lymph # (Auto) 1.4 (1.0-4.3) K/uL C[place] # (Auto) 0.1 (0.0-0.8) K/uL Eos # (Auto) 0.2 (0.0-0.7) K/uL Baso # (Auto) 0.1 (0.0-0.2) K/uL Differential Comment APTT 44 H (21-34) SECONDS Puncture Site pCO2 (35-45) mm/Hg pO2 (80-100) mm/Hg HCO3 (21-28) mmol/L ABG pH (7.35-7.45) ABG Total CO2 (22-28) mmol/L ABG O2 Saturation (95-98) % ABG Base Excess (-2.0-3.0) mmol/L ABG Hemoglobin (11.7-17.4) g/dL ABG Carboxyhemoglobin (0.5-1.5) % POC ABG HHb (Measured) (0.0-5.0) % ABG Methemoglobin (0.0-3.0) % Michele Test A-a O2 Difference mm/Hg Respiratory Index Hgb O2 Saturation (95.0-98.0) % Vent Mode Mechanical Rate FiO2 % Tidal Volume PEEP Sodium (132-148) mmol/L Potassium (3.6-5.2) mmol/L Chloride (98-107) mmol/L Carbon Dioxide (22-30) mmol/L Anion Gap (10-20) BUN (7-17) mg/dL Creatinine (0.7-1.2) mg/dL Est GFR ( Amer) Est GFR (Non-Af Amer) POC Glucose (mg/dL) 197 H (65-110) mg/dL Random Glucose (65-105) mg/dL Calcium (8.6-10.4) mg/dl Phosphorus (2.5-4.5) mg/dL Magnesium (1.6-2.3) mg/dL Total Bilirubin (0.2-1.3) mg/dL AST (14-36) U/L ALT (9-52) U/L Alkaline Phosphatase (38-126) U/L Total Protein (6.3-8.3) g/dL Albumin (3.5-5.0) g/dL Globulin (2.2-3.9) gm/dL Albumin/Globulin Ratio (1.0-2.1) 03/13/18 03/13/18 03/13/18 Range/Units 05:30 05:30 04:40 WBC 14.1 H (4.8-10.8) K/uL RBC 2.81 L (3.80-5.20) Mil/uL Hgb 9.1 L D (11.0-16.0) g/dL Hct 25.4 L (34.0-47.0) % MCV 90.6 D (81.0-99.0) fL MCH 32.5 H (27.0-31.0) pg MCHC 35.8 (33.0-37.0) g/dL RDW 24.5 H (11.5-14.5) % Plt Count 199 (130-400) K/uL MPV 11.2 (7.2-11.7) fL Neut % (Auto) 77.5 H (50.0-75.0) % Lymph % (Auto) 11.5 L (20.0-40.0) % Custer % (Auto) 1.0 (0.0-10.0) % Eos % (Auto) 9.5 H (0.0-4.0) % Baso % (Auto) 0.5 (0.0-2.0) % Neut # (Auto) 10.9 H (1.8-7.0) K/uL Lymph # (Auto) 1.6 (1.0-4.3) K/uL Custer # (Auto) 0.1 (0.0-0.8) K/uL Eos # (Auto) 1.3 H (0.0-0.7) K/uL Baso # (Auto) 0.1 (0.0-0.2) K/uL Differential Comment APTT (21-34) SECONDS Puncture Site Rb pCO2 40 (35-45) mm/Hg pO2 97 (80-100) mm/Hg HCO3 24.9 (21-28) mmol/L ABG pH 7.40 (7.35-7.45) ABG Total CO2 26.0 (22-28) mmol/L ABG O2 Saturation 100.7 H (95-98) % ABG Base Excess 0 (-2.0-3.0) mmol/L ABG Hemoglobin 13.2 (11.7-17.4) g/dL ABG Carboxyhemoglobin 3.1 H (0.5-1.5) % POC ABG HHb (Measured) -0.7 L (0.0-5.0) % ABG Methemoglobin 0.9 (0.0-3.0) % Michele Test Na A-a O2 Difference 210.0 mm/Hg Respiratory Index 2.2 Hgb O2 Saturation 96.7 (95.0-98.0) % Vent Mode Prvc Mechanical Rate 16 FiO2 50.0 % Tidal Volume 450 PEEP 5 Sodium 137 (132-148) mmol/L Potassium 3.6 (3.6-5.2) mmol/L Chloride 106 (98-107) mmol/L Carbon Dioxide 23 (22-30) mmol/L Anion Gap 12 (10-20) BUN 34 H (7-17) mg/dL Creatinine 0.7 (0.7-1.2) mg/dL Est GFR ( Amer) > 60 Est GFR (Non-Af Amer) > 60 POC Glucose (mg/dL) (65-110) mg/dL Random Glucose 176 H (65-105) mg/dL Calcium 6.9 L (8.6-10.4) mg/dl Phosphorus 3.0 (2.5-4.5) mg/dL Magnesium 1.4 L (1.6-2.3) mg/dL Total Bilirubin 5.0 H (0.2-1.3) mg/dL AST 48 H (14-36) U/L ALT 35 (9-52) U/L Alkaline Phosphatase 101 (38-126) U/L Total Protein 4.7 L (6.3-8.3) g/dL Albumin 2.3 L (3.5-5.0) g/dL Globulin 2.5 (2.2-3.9) gm/dL Albumin/Globulin Ratio 0.9 L (1.0-2.1) 03/12/18 03/12/18 03/12/18 Range/Units 23:56 20:38 17:49 WBC (4.8-10.8) K/uL RBC (3.80-5.20) Mil/uL Hgb (11.0-16.0) g/dL Hct (34.0-47.0) % MCV (81.0-99.0) fL MCH (27.0-31.0) pg MCHC (33.0-37.0) g/dL RDW (11.5-14.5) % Plt Count (130-400) K/uL MPV (7.2-11.7) fL Neut % (Auto) (50.0-75.0) % Lymph % (Auto) (20.0-40.0) % C[place] % (Auto) (0.0-10.0) % Eos % (Auto) (0.0-4.0) % Baso % (Auto) (0.0-2.0) % Neut # (Auto) (1.8-7.0) K/uL Lymph # (Auto) (1.0-4.3) K/uL C[place] # (Auto) (0.0-0.8) K/uL Eos # (Auto) (0.0-0.7) K/uL Baso # (Auto) (0.0-0.2) K/uL Differential Comment APTT 42 H (21-34) SECONDS Puncture Site pCO2 (35-45) mm/Hg pO2 (80-100) mm/Hg HCO3 (21-28) mmol/L ABG pH (7.35-7.45) ABG Total CO2 (22-28) mmol/L ABG O2 Saturation (95-98) % ABG Base Excess (-2.0-3.0) mmol/L ABG Hemoglobin (11.7-17.4) g/dL ABG Carboxyhemoglobin (0.5-1.5) % POC ABG HHb (Measured) (0.0-5.0) % ABG Methemoglobin (0.0-3.0) % Michele Test A-a O2 Difference mm/Hg Respiratory Index Hgb O2 Saturation (95.0-98.0) % Vent Mode Mechanical Rate FiO2 % Tidal Volume PEEP Sodium (132-148) mmol/L Potassium (3.6-5.2) mmol/L Chloride (98-107) mmol/L Carbon Dioxide (22-30) mmol/L Anion Gap (10-20) BUN (7-17) mg/dL Creatinine (0.7-1.2) mg/dL Est GFR ( Amer) Est GFR (Non-Af Amer) POC Glucose (mg/dL) 138 H 79 (65-110) mg/dL Random Glucose (65-105) mg/dL Calcium (8.6-10.4) mg/dl Phosphorus (2.5-4.5) mg/dL Magnesium (1.6-2.3) mg/dL Total Bilirubin (0.2-1.3) mg/dL AST (14-36) U/L ALT (9-52) U/L Alkaline Phosphatase (38-126) U/L Total Protein (6.3-8.3) g/dL Albumin (3.5-5.0) g/dL Globulin (2.2-3.9) gm/dL Albumin/Globulin Ratio (1.0-2.1) Laboratory Results - last 24 hr 03/12/18 03/12/18 03/12/18 17:49 20:38 23:56 WBC RBC Hgb Hct MCV MCH MCHC RDW Plt Count MPV Neut % (Auto) Lymph % (Auto) C[place] % (Auto) Eos % (Auto) Baso % (Auto) Neut # (Auto) Lymph # (Auto) [place] # (Auto) Eos # (Auto) Baso # (Auto) Differential Comment APTT 42 H Puncture Site pCO2 pO2 HCO3 ABG pH ABG Total CO2 ABG O2 Saturation ABG Base Excess ABG Hemoglobin ABG Carboxyhemoglobin POC ABG HHb (Measured) ABG Methemoglobin Michele Test A-a O2 Difference Respiratory Index Hgb O2 Saturation Vent Mode Mechanical Rate FiO2 Tidal Volume PEEP Sodium Potassium Chloride Carbon Dioxide Anion Gap BUN Creatinine Est GFR ( Amer) Est GFR (Non-Af Amer) POC Glucose (mg/dL) 79 138 H Random Glucose Calcium Phosphorus Magnesium Total Bilirubin AST ALT Alkaline Phosphatase Total Protein Albumin Globulin Albumin/Globulin Ratio 03/13/18 03/13/18 03/13/18 04:40 05:30 05:30 WBC 14.1 H RBC 2.81 L Hgb 9.1 L D Hct 25.4 L MCV 90.6 D MCH 32.5 H MCHC 35.8 RDW 24.5 H Plt Count 199 MPV 11.2 Neut % (Auto) 77.5 H Lymph % (Auto) 11.5 L Custer % (Auto) 1.0 Eos % (Auto) 9.5 H Baso % (Auto) 0.5 Neut # (Auto) 10.9 H Lymph # (Auto) 1.6 [place] # (Auto) 0.1 Eos # (Auto) 1.3 H Baso # (Auto) 0.1 Differential Comment APTT Puncture Site Rb pCO2 40 pO2 97 HCO3 24.9 ABG pH 7.40 ABG Total CO2 26.0 ABG O2 Saturation 100.7 H ABG Base Excess 0 ABG Hemoglobin 13.2 ABG Carboxyhemoglobin 3.1 H POC ABG HHb (Measured) -0.7 L ABG Methemoglobin 0.9 Michele Test Na A-a O2 Difference 210.0 Respiratory Index 2.2 Hgb O2 Saturation 96.7 Vent Mode Prvc Mechanical Rate 16 FiO2 50.0 Tidal Volume 450 PEEP 5 Sodium 137 Potassium 3.6 Chloride 106 Carbon Dioxide 23 Anion Gap 12 BUN 34 H Creatinine 0.7 Est GFR ( Amer) > 60 Est GFR (Non-Af Amer) > 60 POC Glucose (mg/dL) Random Glucose 176 H Calcium 6.9 L Phosphorus 3.0 Magnesium 1.4 L Total Bilirubin 5.0 H AST 48 H ALT 35 Alkaline Phosphatase 101 Total Protein 4.7 L Albumin 2.3 L Globulin 2.5 Albumin/Globulin Ratio 0.9 L 03/13/18 03/13/18 03/13/18 07:48 08:21 08:21 WBC 12.9 H RBC 2.63 L Hgb 8.5 L Hct 25.2 L MCV 95.7 D MCH 32.2 H MCHC 33.6 RDW 16.6 H Plt Count 187 MPV 11.3 Neut % (Auto) 85.9 H Lymph % (Auto) 10.8 L [place] % (Auto) 1.1 Eos % (Auto) 1.8 Baso % (Auto) 0.4 Neut # (Auto) 11.1 H Lymph # (Auto) 1.4 C[place] # (Auto) 0.1 Eos # (Auto) 0.2 Baso # (Auto) 0.1 Differential Comment APTT 44 H Puncture Site pCO2 pO2 HCO3 ABG pH ABG Total CO2 ABG O2 Saturation ABG Base Excess ABG Hemoglobin ABG Carboxyhemoglobin POC ABG HHb (Measured) ABG Methemoglobin Michele Test A-a O2 Difference Respiratory Index Hgb O2 Saturation Vent Mode Mechanical Rate FiO2 Tidal Volume PEEP Sodium Potassium Chloride Carbon Dioxide Anion Gap BUN Creatinine Est GFR ( Amer) Est GFR (Non-Af Amer) POC Glucose (mg/dL) 197 H Random Glucose Calcium Phosphorus Magnesium Total Bilirubin AST ALT Alkaline Phosphatase Total Protein Albumin Globulin Albumin/Globulin Ratio Fingerstick Blood Sugar Results: 238 Review of Systems - Review of Systems Systems not reviewed;Unavailable: Intubated Critical Care Progress Note - Ventilator Checklist Head of Bed 30 Degrees: Yes Daily Sedation Vacation: Yes Daily Assessment of Readiness to Wean: Yes PUD Prophalyxis: Yes DVT Prophylaxis: Yes Oral Care with Chlorhexidine Gluconate {CHG}: Yes - Vent Settings MODE:: PRVC - Extremities/Vascular Does the Patient have a Central Venous Catheter?: Yes Insertion Site: Femoral Vein Does the Patient need a Central Venous Catheter?: Yes Does the Patient have a Tran Catheter?: Yes Does the Patient need a Tran Catheter?: Yes Catheter Insertion Criteria: Need for accurate measurement of output in critically ill patient - Prophylaxis GI Prophylaxis GI: PPI - Prophylaxis DVT Prophylaxis DVT: Not Indicated (heparin drip) - Nutrition Nutrition: Nutrition Category Date Time Status NPO Diet [DIET] Diets 03/06/18 Breakfast Active Assessment/Plan - Assessment and Plan (Free Text) Assessment: Patient is an 82 yo female with a 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 She has been in a [place] [facility] for approximately 2 months. She presented to ED today with nausea, vomiting, abdominal pain, and lethargy. CT A/P demonstrated ischemic bowel. Surgery was consulted. She has had 2 ex-laps with lysis of adhesions (03/06) and partial small bowel resection (03/11). Patient continues to be intubated and on sedation. Plan: Neuro: - Intubated on sedation - Propofol drip- discontinue - Fentanyl drip CV: - R femoral TLC - Levophed drip off - Monitor vitals- episode of Afib, now NSR Pulm: - Intubated PRVC- decrease FiO2 60 to 50, CPAP trial - ABG: pH 7.4, pCO2 40, pO2 97 - CXR: mod-severe venous congestion, dense confluent airspace opacification in mid-lower lungs, prominent GI: Ischemic bowel - NPO - NGT to suction - TPN QOD - Dilaudid 0.25 mg IV Q4H - CT A/P 03/06 (pre-op): ischemic small bowel, extensive pneumatosis intestinalis, mesenteric venous gas, intrahepatic portal venous gas, ascites - CTA A/P 03/07: hepatic infarct, splenic infarcts, branch of SMA obstructed - CT A/P 03/10: small and large bowel wall thickening consistent with ischemic bowel, free intraperitoneal air, interval progressive increase in extensive SQ gas/air consistent with SQ emphysema, extensive anasarca - GI consulted (Patricia) - Hem/onc consulted (Pritesh)- intrahepatic biliary CA s/p Whipple - Surgery consulted (Fortino)- s/p 2 ex-laps : - I's & O's - Poor urine output- 755 mL over last 24 hrs - Last 24 hrs +2344 mL - Lasix drip 10 mg/hr - Replete electrolytes PRN Endo: T2DM - Maintain euglycemia - Hypoglycemia protocol - Accuchecks Q6H with ISS Heme: - Heparin drip - Monitor H&H- Hgb decreasing (8.5) - s/p 2 uPRBC intra-op - Monitor PT/INR/PTT - s/p 1 u FFP - Hem/onc consulted (Pritesh) ID: Septic shock - Code sepsis - Last fever 03/09 102 - LA improving (13.5->3) - Leukocytosis improving - Trach Cx: Klebsiella - Blood Cx: no growth - Meropenem 500 mg IV Q8H- started 03/10 - ID consulted (Bee) PPx: VTE: heparin drip GI: PTX 40 mg IV Q12H Code status: full code Case discussed with attending, Dr. Cuadra. PGY-1 Emy Morse D.O. <Rob Cuadra - Last Filed: 03/13/18 19:36> CCU Objective - Vital Signs / Intake & Output Vital Signs (Last 4 hours): Vital Signs Temp Pulse Resp BP Pulse Ox 03/13/18 19:00 96 H 15 97 03/13/18 18:27 95 H 16 94/33 L 97 03/13/18 18:00 98 H 16 97 03/13/18 17:27 97 H 16 100/35 L 97 03/13/18 17:00 105 H 16 97 03/13/18 16:27 96 H 16 95/37 L 97 03/13/18 16:00 99.6 F 97 H 16 97 Intake and Output (Last 8hrs): Intake & Output 03/13/18 03/13/18 03/13/18 06:59 14:59 22:59 Intake Total 811.6 1575.5 915.5 Output Total 425 220 195 Balance 386.6 1355.5 720.5 Weight 217 lb 9.54 oz Intake: IV 8 492 250 Intake, IV Amount 803.6 1083.5 665.5 Left Wrist 64.8 87.5 57.5 Medial Port 210 11.6 R Hand 300 200 Right Distal IJ 40 60 50 Right Distal Port 336 336 210 Internal Jugular Right Medial Port 152.8 288.4 148.0 Internal Jugular Oral 0 Output: Gastric Amount 50 Right 50 Drainage 0 60 LEFT JEJUNOSTOMY 0 0 abdominal wound drain 60 Urine 425 220 85 Urethral (Tran) 425 220 85 Stool 0 Emesis 0 - Medications Active Medications: Active Medications Generic Name Dose Route Start Last Admin Trade Name Freq PRN Reason Stop Dose Admin Dextrose 0 ml 03/06/18 15:02 03/11/18 00:13 Dextrose 50% Inj IV 50 ml STAT PRN Administration Hypoglycemia Protocol Protocol Dextrose 0 gm 03/06/18 15:02 Glutose 15 PO ONCE PRN Hypoglycemia Protocol Protocol Glucagon 0 mg 03/06/18 15:02 Glucagen Diagnostic Kit IM STAT PRN Hypoglycemia Protocol Protocol Hydromorphone HCl 0.25 mg 03/10/18 20:35 03/13/18 12:58 Dilaudid IVP 0.25 mg Q4H PRN Administration Pain, severe (8-10) Norepinephrine Bitartrate 4 mg 250 mls @ 15 mls/hr 03/10/18 12:30 03/12/18 19:30 / Sodium Chloride IV 0 mcg/min .[id number] PRN 0 mls/hr TITRATE PER MD ORDER Titration Protocol 4 MCG/MIN Propofol 1,000 mg in 100 mls @ 10.733 mls/hr 03/10/18 23:16 03/13/18 11:10 Diprivan IV 0 mcg/kg/min .Q9H20M PRN 0 mls/hr TITRATE PER MD ORDER Titration Protocol 18.75 MCG/KG/MIN Fentanyl Citrate 2,500 mcg/ 250 mls @ 28.62 mls/hr 03/10/18 23:30 03/13/18 19:24 Sodium Chloride IV 3 mcg/kg/hr .Q8H45M ARPIT 28.62 mls/hr Administration Protocol 3 MCG/KG/HR Heparin Sodium/Sodium Chloride 25,000 units in 250 mls @ 9.54 mls/hr 03/10/18 23:20 03/13/18 19:17 Heparin 21990 Units/250ml 1/2 Normal Saline IV 12.13 units/kg/hr .Q24H PRN 11.572 mls/hr ADJUST RATE PER PROTOCOL Administration Protocol 10 UNITS/KG/HR Meropenem 500 mg/ Sodium 100 mls @ 100 mls/hr 03/12/18 17:00 03/13/18 17:04 Chloride IVPB 100 mls/hr Q8H ARPIT Administration Protocol Furosemide 100 mg/ Sodium 100 mls @ 10 mls/hr 03/13/18 12:00 03/13/18 11:45 Chloride IV Not Given .Q10H ARPIT 10 MG/HR Amino Acids/Electrolytes/Dextrose 1,000 mls @ 42 mls/hr 03/13/18 18:00 1 05/13/17 17:07 Clinimix 5/20 % "E" (1000 Ml) IV 03/14/18 17:48 42 mls/hr .[id number] ARPIT Administration Metronidazole 500 mg in 100 mls @ 100 mls/hr 03/13/18 15:00 03/13/18 15:20 Flagyl IVPB 100 mls/hr Q8H ARPIT Administration Protocol Insulin Aspart 0 unit 03/06/18 18:00 03/13/18 17:53 Novolog SC 3 unit Q6H ARPIT Administration Protocol Pantoprazole Sodium 40 mg 03/07/18 10:00 03/13/18 10:02 Protonix Inj IVP 40 mg Q12H ARPIT Administration Vitamin A 0.5 ea 03/10/18 20:33 03/13/18 11:26 Vitamin A & D Oint Ud Foilpak TOP 0.5 ea Q4 PRN Administration Lip dryness - Patient Studies Lab Studies: Lab Studies 03/13/18 03/13/18 03/13/18 Range/Units 15:55 08:21 08:21 WBC 12.9 H (4.8-10.8) K/uL RBC 2.63 L (3.80-5.20) Mil/uL Hgb 8.5 L (11.0-16.0) g/dL Hct 25.2 L (34.0-47.0) % MCV 95.7 D (81.0-99.0) fL MCH 32.2 H (27.0-31.0) pg MCHC 33.6 (33.0-37.0) g/dL RDW 16.6 H (11.5-14.5) % Plt Count 187 (130-400) K/uL MPV 11.3 (7.2-11.7) fL Neut % (Auto) 85.9 H (50.0-75.0) % Lymph % (Auto) 10.8 L (20.0-40.0) % [place] % (Auto) 1.1 (0.0-10.0) % Eos % (Auto) 1.8 (0.0-4.0) % Baso % (Auto) 0.4 (0.0-2.0) % Neut # (Auto) 11.1 H (1.8-7.0) K/uL Lymph # (Auto) 1.4 (1.0-4.3) K/uL [place] # (Auto) 0.1 (0.0-0.8) K/uL Eos # (Auto) 0.2 (0.0-0.7) K/uL Baso # (Auto) 0.1 (0.0-0.2) K/uL Differential Comment APTT 53 H D 44 H (21-34) SECONDS Puncture Site pCO2 (35-45) mm/Hg pO2 (80-100) mm/Hg HCO3 (21-28) mmol/L ABG pH (7.35-7.45) ABG Total CO2 (22-28) mmol/L ABG O2 Saturation (95-98) % ABG Base Excess (-2.0-3.0) mmol/L ABG Hemoglobin (11.7-17.4) g/dL ABG Carboxyhemoglobin (0.5-1.5) % POC ABG HHb (Measured) (0.0-5.0) % ABG Methemoglobin (0.0-3.0) % Michele Test A-a O2 Difference mm/Hg Respiratory Index Hgb O2 Saturation (95.0-98.0) % Vent Mode Mechanical Rate FiO2 % Tidal Volume PEEP Sodium (132-148) mmol/L Potassium (3.6-5.2) mmol/L Chloride (98-107) mmol/L Carbon Dioxide (22-30) mmol/L Anion Gap (10-20) BUN (7-17) mg/dL Creatinine (0.7-1.2) mg/dL Est GFR ( Amer) Est GFR (Non-Af Amer) POC Glucose (mg/dL) (65-110) mg/dL Random Glucose (65-105) mg/dL Calcium (8.6-10.4) mg/dl Phosphorus (2.5-4.5) mg/dL Magnesium (1.6-2.3) mg/dL Total Bilirubin (0.2-1.3) mg/dL AST (14-36) U/L ALT (9-52) U/L Alkaline Phosphatase (38-126) U/L Total Protein (6.3-8.3) g/dL Albumin (3.5-5.0) g/dL Globulin (2.2-3.9) gm/dL Albumin/Globulin Ratio (1.0-2.1) 03/13/18 03/13/18 03/13/18 Range/Units 07:48 05:30 05:30 WBC 14.1 H (4.8-10.8) K/uL RBC 2.81 L (3.80-5.20) Mil/uL Hgb 9.1 L D (11.0-16.0) g/dL Hct 25.4 L (34.0-47.0) % MCV 90.6 D (81.0-99.0) fL MCH 32.5 H (27.0-31.0) pg MCHC 35.8 (33.0-37.0) g/dL RDW 24.5 H (11.5-14.5) % Plt Count 199 (130-400) K/uL MPV 11.2 (7.2-11.7) fL Neut % (Auto) 77.5 H (50.0-75.0) % Lymph % (Auto) 11.5 L (20.0-40.0) % Custer % (Auto) 1.0 (0.0-10.0) % Eos % (Auto) 9.5 H (0.0-4.0) % Baso % (Auto) 0.5 (0.0-2.0) % Neut # (Auto) 10.9 H (1.8-7.0) K/uL Lymph # (Auto) 1.6 (1.0-4.3) K/uL Custer # (Auto) 0.1 (0.0-0.8) K/uL Eos # (Auto) 1.3 H (0.0-0.7) K/uL Baso # (Auto) 0.1 (0.0-0.2) K/uL Differential Comment APTT (21-34) SECONDS Puncture Site pCO2 (35-45) mm/Hg pO2 (80-100) mm/Hg HCO3 (21-28) mmol/L ABG pH (7.35-7.45) ABG Total CO2 (22-28) mmol/L ABG O2 Saturation (95-98) % ABG Base Excess (-2.0-3.0) mmol/L ABG Hemoglobin (11.7-17.4) g/dL ABG Carboxyhemoglobin (0.5-1.5) % POC ABG HHb (Measured) (0.0-5.0) % ABG Methemoglobin (0.0-3.0) % Michele Test A-a O2 Difference mm/Hg Respiratory Index Hgb O2 Saturation (95.0-98.0) % Vent Mode Mechanical Rate FiO2 % Tidal Volume PEEP Sodium 137 (132-148) mmol/L Potassium 3.6 (3.6-5.2) mmol/L Chloride 106 (98-107) mmol/L Carbon Dioxide 23 (22-30) mmol/L Anion Gap 12 (10-20) BUN 34 H (7-17) mg/dL Creatinine 0.7 (0.7-1.2) mg/dL Est GFR ( Amer) > 60 Est GFR (Non-Af Amer) > 60 POC Glucose (mg/dL) 197 H (65-110) mg/dL Random Glucose 176 H (65-105) mg/dL Calcium 6.9 L (8.6-10.4) mg/dl Phosphorus 3.0 (2.5-4.5) mg/dL Magnesium 1.4 L (1.6-2.3) mg/dL Total Bilirubin 5.0 H (0.2-1.3) mg/dL AST 48 H (14-36) U/L ALT 35 (9-52) U/L Alkaline Phosphatase 101 (38-126) U/L Total Protein 4.7 L (6.3-8.3) g/dL Albumin 2.3 L (3.5-5.0) g/dL Globulin 2.5 (2.2-3.9) gm/dL Albumin/Globulin Ratio 0.9 L (1.0-2.1) 03/13/18 03/12/18 03/12/18 Range/Units 04:40 23:56 20:38 WBC (4.8-10.8) K/uL RBC (3.80-5.20) Mil/uL Hgb (11.0-16.0) g/dL Hct (34.0-47.0) % MCV (81.0-99.0) fL MCH (27.0-31.0) pg MCHC (33.0-37.0) g/dL RDW (11.5-14.5) % Plt Count (130-400) K/uL MPV (7.2-11.7) fL Neut % (Auto) (50.0-75.0) % Lymph % (Auto) (20.0-40.0) % Custer % (Auto) (0.0-10.0) % Eos % (Auto) (0.0-4.0) % Baso % (Auto) (0.0-2.0) % Neut # (Auto) (1.8-7.0) K/uL Lymph # (Auto) (1.0-4.3) K/uL Custer # (Auto) (0.0-0.8) K/uL Eos # (Auto) (0.0-0.7) K/uL Baso # (Auto) (0.0-0.2) K/uL Differential Comment APTT 42 H (21-34) SECONDS Puncture Site Rb pCO2 40 (35-45) mm/Hg pO2 97 (80-100) mm/Hg HCO3 24.9 (21-28) mmol/L ABG pH 7.40 (7.35-7.45) ABG Total CO2 26.0 (22-28) mmol/L ABG O2 Saturation 100.7 H (95-98) % ABG Base Excess 0 (-2.0-3.0) mmol/L ABG Hemoglobin 13.2 (11.7-17.4) g/dL ABG Carboxyhemoglobin 3.1 H (0.5-1.5) % POC ABG HHb (Measured) -0.7 L (0.0-5.0) % ABG Methemoglobin 0.9 (0.0-3.0) % Michele Test Na A-a O2 Difference 210.0 mm/Hg Respiratory Index 2.2 Hgb O2 Saturation 96.7 (95.0-98.0) % Vent Mode Prvc Mechanical Rate 16 FiO2 50.0 % Tidal Volume 450 PEEP 5 Sodium (132-148) mmol/L Potassium (3.6-5.2) mmol/L Chloride (98-107) mmol/L Carbon Dioxide (22-30) mmol/L Anion Gap (10-20) BUN (7-17) mg/dL Creatinine (0.7-1.2) mg/dL Est GFR ( Amer) Est GFR (Non-Af Amer) POC Glucose (mg/dL) 138 H (65-110) mg/dL Random Glucose (65-105) mg/dL Calcium (8.6-10.4) mg/dl Phosphorus (2.5-4.5) mg/dL Magnesium (1.6-2.3) mg/dL Total Bilirubin (0.2-1.3) mg/dL AST (14-36) U/L ALT (9-52) U/L Alkaline Phosphatase (38-126) U/L Total Protein (6.3-8.3) g/dL Albumin (3.5-5.0) g/dL Globulin (2.2-3.9) gm/dL Albumin/Globulin Ratio (1.0-2.1) Laboratory Results - last 24 hr 03/12/18 03/12/18 03/13/18 20:38 23:56 04:40 WBC RBC Hgb Hct MCV MCH MCHC RDW Plt Count MPV Neut % (Auto) Lymph % (Auto) Custer % (Auto) Eos % (Auto) Baso % (Auto) Neut # (Auto) Lymph # (Auto) Custer # (Auto) Eos # (Auto) Baso # (Auto) Differential Comment APTT 42 H Puncture Site Rb pCO2 40 pO2 97 HCO3 24.9 ABG pH 7.40 ABG Total CO2 26.0 ABG O2 Saturation 100.7 H ABG Base Excess 0 ABG Hemoglobin 13.2 ABG Carboxyhemoglobin 3.1 H POC ABG HHb (Measured) -0.7 L ABG Methemoglobin 0.9 Michele Test Na A-a O2 Difference 210.0 Respiratory Index 2.2 Hgb O2 Saturation 96.7 Vent Mode Prvc Mechanical Rate 16 FiO2 50.0 Tidal Volume 450 PEEP 5 Sodium Potassium Chloride Carbon Dioxide Anion Gap BUN Creatinine Est GFR ( Amer) Est GFR (Non-Af Amer) POC Glucose (mg/dL) 138 H Random Glucose Calcium Phosphorus Magnesium Total Bilirubin AST ALT Alkaline Phosphatase Total Protein Albumin Globulin Albumin/Globulin Ratio 03/13/18 03/13/18 03/13/18 05:30 05:30 07:48 WBC 14.1 H RBC 2.81 L Hgb 9.1 L D Hct 25.4 L MCV 90.6 D MCH 32.5 H MCHC 35.8 RDW 24.5 H Plt Count 199 MPV 11.2 Neut % (Auto) 77.5 H Lymph % (Auto) 11.5 L Custer % (Auto) 1.0 Eos % (Auto) 9.5 H Baso % (Auto) 0.5 Neut # (Auto) 10.9 H Lymph # (Auto) 1.6 Custer # (Auto) 0.1 Eos # (Auto) 1.3 H Baso # (Auto) 0.1 Differential Comment APTT Puncture Site pCO2 pO2 HCO3 ABG pH ABG Total CO2 ABG O2 Saturation ABG Base Excess ABG Hemoglobin ABG Carboxyhemoglobin POC ABG HHb (Measured) ABG Methemoglobin Michele Test A-a O2 Difference Respiratory Index Hgb O2 Saturation Vent Mode Mechanical Rate FiO2 Tidal Volume PEEP Sodium 137 Potassium 3.6 Chloride 106 Carbon Dioxide 23 Anion Gap 12 BUN 34 H Creatinine 0.7 Est GFR ( Amer) > 60 Est GFR (Non-Af Amer) > 60 POC Glucose (mg/dL) 197 H Random Glucose 176 H Calcium 6.9 L Phosphorus 3.0 Magnesium 1.4 L Total Bilirubin 5.0 H AST 48 H ALT 35 Alkaline Phosphatase 101 Total Protein 4.7 L Albumin 2.3 L Globulin 2.5 Albumin/Globulin Ratio 0.9 L 03/13/18 03/13/18 03/13/18 08:21 08:21 15:55 WBC 12.9 H RBC 2.63 L Hgb 8.5 L Hct 25.2 L MCV 95.7 D MCH 32.2 H MCHC 33.6 RDW 16.6 H Plt Count 187 MPV 11.3 Neut % (Auto) 85.9 H Lymph % (Auto) 10.8 L Custer % (Auto) 1.1 Eos % (Auto) 1.8 Baso % (Auto) 0.4 Neut # (Auto) 11.1 H Lymph # (Auto) 1.4 Custer # (Auto) 0.1 Eos # (Auto) 0.2 Baso # (Auto) 0.1 Differential Comment APTT 44 H 53 H D Puncture Site pCO2 pO2 HCO3 ABG pH ABG Total CO2 ABG O2 Saturation ABG Base Excess ABG Hemoglobin ABG Carboxyhemoglobin POC ABG HHb (Measured) ABG Methemoglobin Michele Test A-a O2 Difference Respiratory Index Hgb O2 Saturation Vent Mode Mechanical Rate FiO2 Tidal Volume PEEP Sodium Potassium Chloride Carbon Dioxide Anion Gap BUN Creatinine Est GFR ( Amer) Est GFR (Non-Af Amer) POC Glucose (mg/dL) Random Glucose Calcium Phosphorus Magnesium Total Bilirubin AST ALT Alkaline Phosphatase Total Protein Albumin Globulin Albumin/Globulin Ratio Critical Care Progress Note - Nutrition Nutrition: Nutrition Category Date Time Status NPO Diet [DIET] Diets 03/06/18 Breakfast Active Attending/Attestation - Attestation I have personally seen and examined this patient.: Yes I have fully participated in the care of the patient.: Yes I have reviewed all pertinent clinical information: Yes Notes (Text): 03/13/18 19:31 Today: February The Patient was seen and examined at the bedside, Medical records reviewed, and management issues were discussed and formulated with the house staff. I have reviewed all the relevant clinical, laboratory, hemodynamic, radiographic data and medications Events reviewed Pain issues, skin care, head of the bed elevation, glycemic control were addressed. Agree with above resident's assessment and treatment plans of care as transcribed in Dr. Morse's note. Critically ill patient with acute hypoxemic respiratory failure, Septic shock of vasopressors, Respiratory/ Metabolic acidosis History of cholangiocarcinoma NPO, on parentral nutrition Full vent support for now, Wean off FIO2, Currently on Broad spectrum antibiotic coverage, Discussed with the family in details diagnosis, treatment plans and alternatives,
--- NOTE | 2018-03-13 14:51 | CP.PCM.PN ---
Subjective - Date & Time of Evaluation Date of Evaluation: 03/13/18 Time of Evaluation: 08:00 - Subjective Subjective: weaned off of levophed yesterday but remains on lasix drip and mechanically ventilated Objective - Vital Signs/Intake and Output Vital Signs (last 24 hours): Temp Pulse Resp BP Pulse Ox 99.4 F 100 H 16 103/37 L 97 03/13/18 12:00 03/13/18 13:00 03/13/18 13:00 03/13/18 12:27 03/13/18 13:00 Intake and Output: 03/13/18 03/13/18 06:59 18:59 Intake Total 1566.4 1389.3 Output Total 425 160 Balance 1141.4 1229.3 - Medications Medications: Current Medications Dextrose (Dextrose 50% Inj) 0 ml IV STAT PRN; Protocol PRN Reason: Hypoglycemia Protocol Last Admin: 03/11/18 00:13 Dose: 50 ml Dextrose (Glutose 15) 0 gm PO ONCE PRN; Protocol PRN Reason: Hypoglycemia Protocol Glucagon (Glucagen Diagnostic Kit) 0 mg IM STAT PRN; Protocol PRN Reason: Hypoglycemia Protocol Hydromorphone HCl (Dilaudid) 0.25 mg IVP Q4H PRN PRN Reason: Pain, severe (8-10) Last Admin: 03/13/18 12:58 Dose: 0.25 mg Norepinephrine Bitartrate 4 mg (/ Sodium Chloride) 250 mls @ 15 mls/hr IV .[id number] PRN; Protocol PRN Reason: TITRATE PER MD ORDER Last Titration: 03/12/18 19:30 Dose: 0 mcg/min, 0 mls/hr Propofol (Diprivan) 1,000 mg in 100 mls @ 10.733 mls/hr IV .Q9H20M PRN; Protocol PRN Reason: TITRATE PER MD ORDER Last Titration: 03/13/18 11:10 Dose: 0 mcg/kg/min, 0 mls/hr Fentanyl Citrate 2,500 mcg/ (Sodium Chloride) 250 mls @ 28.62 mls/hr IV .Q8H45M ARPIT; Protocol Last Titration: 03/13/18 13:13 Dose: 3 mcg/kg/hr, 28.62 mls/hr Heparin Sodium/Sodium Chloride (Heparin 77403 Units/250ml 1/2 Normal Saline) 25,000 units in 250 mls @ 9.54 mls/hr IV .Q24H PRN; Protocol PRN Reason: ADJUST RATE PER PROTOCOL Last Titration: 03/13/18 10:06 Dose: 12.13 units/kg/hr, 11.572 mls/hr Amino Acids/Electrolytes/Dextrose (Clinimix 5/20 % "E" (1000 Ml)) 1,000 mls @ 42 mls/hr IV .[id number] ARPIT Stop: 03/13/18 17:48 Last Admin: 03/12/18 18:15 Dose: 42 mls/hr Meropenem 500 mg/ Sodium (Chloride) 100 mls @ 100 mls/hr IVPB Q8H ARPIT; Protocol Last Admin: 03/13/18 09:36 Dose: 100 mls/hr Furosemide 100 mg/ Sodium (Chloride) 100 mls @ 10 mls/hr IV .Q10H ARPIT Last Admin: 03/13/18 11:45 Dose: Not Given Amino Acids/Electrolytes/Dextrose (Clinimix 5/20 % "E" (1000 Ml)) 1,000 mls @ 42 mls/hr IV .[id number] ARPIT Stop: 03/14/18 17:48 Insulin Aspart (Novolog) 0 unit SC Q6H ARPIT; Protocol Last Admin: 03/13/18 11:25 Dose: 2 unit Pantoprazole Sodium (Protonix Inj) 40 mg IVP Q12H ARPIT Last Admin: 03/13/18 10:02 Dose: 40 mg Vitamin A (Vitamin A & D Oint Ud Foilpak) 0.5 ea TOP Q4 PRN PRN Reason: Lip dryness Last Admin: 03/13/18 11:26 Dose: 0.5 ea - Labs Labs: 03/13/18 08:21 03/13/18 05:30 PT 15.7 SECONDS (9.7-12.2) H 03/11/18 04:15 INR 1.4 03/11/18 04:15 APTT 44 SECONDS (21-34) H 03/13/18 08:21 - Constitutional Appears: Confused, Chronically Ill - Head Exam Head Exam: NORMOCEPHALIC - Eye Exam Eye Exam: absent: Scleral icterus - ENT Exam ENT Exam: Mucous Membranes Dry - Neck Exam Neck Exam: absent: Lymphadenopathy - Respiratory Exam Respiratory Exam: Decreased Breath Sounds - Cardiovascular Exam Cardiovascular Exam: REGULAR RHYTHM - GI/Abdominal Exam GI & Abdominal Exam: Distended Additional comments: midline incision + drainage - Rectal Exam Rectal Exam: Deferred - Exam Exam: NORMAL INSPECTION - Extremities Exam Extremities Exam: Pedal Edema - Back Exam Back Exam: absent: CVA tenderness (L), CVA tenderness (R) - Neurological Exam Neurological Exam: Altered - Psychiatric Exam Psychiatric exam: Depressed Assessment and Plan (1) Abdominal pain Status: Acute (2) Acute mesenteric ischemia Status: Acute (3) History of cholangiocarcinoma Status: Acute - Assessment and Plan (Free Text) Assessment: 82F with mesenteric ischemia with multiple areas of intestinal necrosis POD#7 s/p exploratory laparotomy, and POD#2 s/p exploratory laparotomy and necrotic small bowel resection left in discontinuity grave prognosis cont iv antibiotics cor complicated ntraabd infection
[2018-03-13] MEDS: metroNIDAZOLE IV 500 mg/100 ml 500 MG/100 ML BAG IVPB SCH ×2 (15:20→22:03)
--- NOTE | 2018-03-13 16:16 | CP.PCM.PN ---
Subjective - Date & Time of Evaluation Date of Evaluation: 03/13/18 Time of Evaluation: 15:00 - Subjective Subjective: Vented Objective - Vital Signs/Intake and Output Vital Signs (last 24 hours): Temp Pulse Resp BP Pulse Ox 99.4 F 97 H 16 93/38 L 97 03/13/18 12:00 03/13/18 16:00 03/13/18 16:00 03/13/18 15:27 03/13/18 16:00 Intake and Output: 03/13/18 03/13/18 06:59 18:59 Intake Total 1566.4 1668.6 Output Total 425 245 Balance 1141.4 1423.6 - Medications Medications: Current Medications Dextrose (Dextrose 50% Inj) 0 ml IV STAT PRN; Protocol PRN Reason: Hypoglycemia Protocol Last Admin: 03/11/18 00:13 Dose: 50 ml Dextrose (Glutose 15) 0 gm PO ONCE PRN; Protocol PRN Reason: Hypoglycemia Protocol Glucagon (Glucagen Diagnostic Kit) 0 mg IM STAT PRN; Protocol PRN Reason: Hypoglycemia Protocol Hydromorphone HCl (Dilaudid) 0.25 mg IVP Q4H PRN PRN Reason: Pain, severe (8-10) Last Admin: 03/13/18 12:58 Dose: 0.25 mg Norepinephrine Bitartrate 4 mg (/ Sodium Chloride) 250 mls @ 15 mls/hr IV .[id number] PRN; Protocol PRN Reason: TITRATE PER MD ORDER Last Titration: 03/12/18 19:30 Dose: 0 mcg/min, 0 mls/hr Propofol (Diprivan) 1,000 mg in 100 mls @ 10.733 mls/hr IV .Q9H20M PRN; Protocol PRN Reason: TITRATE PER MD ORDER Last Titration: 03/13/18 11:10 Dose: 0 mcg/kg/min, 0 mls/hr Fentanyl Citrate 2,500 mcg/ (Sodium Chloride) 250 mls @ 28.62 mls/hr IV .Q8H45M ARPIT; Protocol Last Titration: 03/13/18 13:13 Dose: 3 mcg/kg/hr, 28.62 mls/hr Heparin Sodium/Sodium Chloride (Heparin 55008 Units/250ml 1/2 Normal Saline) 25,000 units in 250 mls @ 9.54 mls/hr IV .Q24H PRN; Protocol PRN Reason: ADJUST RATE PER PROTOCOL Last Titration: 03/13/18 10:06 Dose: 12.13 units/kg/hr, 11.572 mls/hr Amino Acids/Electrolytes/Dextrose (Clinimix 5/20 % "E" (1000 Ml)) 1,000 mls @ 42 mls/hr IV .[id number] ARPIT Stop: 03/13/18 17:48 Last Admin: 03/12/18 18:15 Dose: 42 mls/hr Meropenem 500 mg/ Sodium (Chloride) 100 mls @ 100 mls/hr IVPB Q8H ARPIT; Protocol Last Admin: 03/13/18 09:36 Dose: 100 mls/hr Furosemide 100 mg/ Sodium (Chloride) 100 mls @ 10 mls/hr IV .Q10H ARPIT Last Admin: 03/13/18 11:45 Dose: Not Given Amino Acids/Electrolytes/Dextrose (Clinimix 5/20 % "E" (1000 Ml)) 1,000 mls @ 42 mls/hr IV .[id number] ARPIT Stop: 03/14/18 17:48 Metronidazole (Flagyl) 500 mg in 100 mls @ 100 mls/hr IVPB Q8H ARPIT; Protocol Last Admin: 03/13/18 15:20 Dose: 100 mls/hr Insulin Aspart (Novolog) 0 unit SC Q6H ARPIT; Protocol Last Admin: 03/13/18 11:25 Dose: 2 unit Pantoprazole Sodium (Protonix Inj) 40 mg IVP Q12H ARPIT Last Admin: 03/13/18 10:02 Dose: 40 mg Vitamin A (Vitamin A & D Oint Ud Foilpak) 0.5 ea TOP Q4 PRN PRN Reason: Lip dryness Last Admin: 03/13/18 11:26 Dose: 0.5 ea - Labs Labs: 03/13/18 08:21 03/13/18 05:30 PT 15.7 SECONDS (9.7-12.2) H 03/11/18 04:15 INR 1.4 03/11/18 04:15 APTT 53 SECONDS (21-34) H D 03/13/18 15:55 - Head Exam Head Exam: ATRAUMATIC - Eye Exam Eye Exam: Normal appearance - ENT Exam ENT Exam: Mucous Membranes Dry - Respiratory Exam Respiratory Exam: NORMAL BREATHING PATTERN - Cardiovascular Exam Cardiovascular Exam: +S1, +S2 - GI/Abdominal Exam GI & Abdominal Exam: Normal Bowel Sounds Assessment and Plan (1) Anemia Assessment & Plan: anemia of chronic disease. Status: Acute (2) Coagulopathy Assessment & Plan: heparin likely nutritional component Status: Acute (3) History of cholangiocarcinoma Assessment & Plan: s/p whipple procedure in 11/2017 at [facility] Status: Acute
[2018-03-13] MEDS ORDERED: **TPN #2 IV SCH (18:00)
[2018-03-13] MEDS: Heparin25000 units/250ml 1/2NS 25,000 UNITS/250 ML BAG IV PRN (19:17)
--- NOTE | 2018-03-13 21:02 | CP.PCM.PN ---
Subjective - Date & Time of Evaluation Date of Evaluation: 03/13/18 Time of Evaluation: 11:15 - Subjective Subjective: clinically same Objective - Vital Signs/Intake and Output Vital Signs (last 24 hours): Temp Pulse Resp BP Pulse Ox 99.6 F 96 H 15 94/33 L 97 03/13/18 16:00 03/13/18 19:00 03/13/18 19:00 03/13/18 18:27 03/13/18 19:00 Intake and Output: 03/13/18 03/14/18 18:59 06:59 Intake Total 2147.9 343.1 Output Total 395 20 Balance 1752.9 323.1 - Medications Medications: Current Medications Dextrose (Dextrose 50% Inj) 0 ml IV STAT PRN; Protocol PRN Reason: Hypoglycemia Protocol Last Admin: 03/11/18 00:13 Dose: 50 ml Dextrose (Glutose 15) 0 gm PO ONCE PRN; Protocol PRN Reason: Hypoglycemia Protocol Glucagon (Glucagen Diagnostic Kit) 0 mg IM STAT PRN; Protocol PRN Reason: Hypoglycemia Protocol Hydromorphone HCl (Dilaudid) 0.25 mg IVP Q4H PRN PRN Reason: Pain, severe (8-10) Last Admin: 03/13/18 12:58 Dose: 0.25 mg Norepinephrine Bitartrate 4 mg (/ Sodium Chloride) 250 mls @ 15 mls/hr IV .[id number] PRN; Protocol PRN Reason: TITRATE PER MD ORDER Last Titration: 03/12/18 19:30 Dose: 0 mcg/min, 0 mls/hr Propofol (Diprivan) 1,000 mg in 100 mls @ 10.733 mls/hr IV .Q9H20M PRN; Protocol PRN Reason: TITRATE PER MD ORDER Last Titration: 03/13/18 11:10 Dose: 0 mcg/kg/min, 0 mls/hr Fentanyl Citrate 2,500 mcg/ (Sodium Chloride) 250 mls @ 28.62 mls/hr IV .Q8H45M ARPIT; Protocol Last Admin: 03/13/18 19:24 Dose: 3 mcg/kg/hr, 28.62 mls/hr Heparin Sodium/Sodium Chloride (Heparin 71323 Units/250ml 1/2 Normal Saline) 25,000 units in 250 mls @ 9.54 mls/hr IV .Q24H PRN; Protocol PRN Reason: ADJUST RATE PER PROTOCOL Last Admin: 03/13/18 19:17 Dose: 12.13 units/kg/hr, 11.572 mls/hr Meropenem 500 mg/ Sodium (Chloride) 100 mls @ 100 mls/hr IVPB Q8H ARPIT; Protocol Last Admin: 03/13/18 17:04 Dose: 100 mls/hr Furosemide 100 mg/ Sodium (Chloride) 100 mls @ 10 mls/hr IV .Q10H ARPIT Last Admin: 03/13/18 11:45 Dose: Not Given Amino Acids/Electrolytes/Dextrose (Clinimix 5/20 % "E" (1000 Ml)) 1,000 mls @ 42 mls/hr IV .[id number] ARPIT Stop: 03/14/18 17:48 Last Admin: 03/13/18 17:07 Dose: 42 mls/hr Metronidazole (Flagyl) 500 mg in 100 mls @ 100 mls/hr IVPB Q8H ARPIT; Protocol Last Admin: 03/13/18 15:20 Dose: 100 mls/hr Insulin Aspart (Novolog) 0 unit SC Q6H ARPIT; Protocol Last Admin: 03/13/18 17:53 Dose: 3 unit Pantoprazole Sodium (Protonix Inj) 40 mg IVP Q12H ARPIT Last Admin: 03/13/18 10:02 Dose: 40 mg Vitamin A (Vitamin A & D Oint Ud Foilpak) 0.5 ea TOP Q4 PRN PRN Reason: Lip dryness Last Admin: 03/13/18 11:26 Dose: 0.5 ea - Labs Labs: 03/13/18 08:21 03/13/18 05:30 PT 15.7 SECONDS (9.7-12.2) H 03/11/18 04:15 INR 1.4 03/11/18 04:15 APTT 53 SECONDS (21-34) H D 03/13/18 15:55
[2018-03-14] MEDS: (Novolog) Insulin Aspart, Recombinant 100 u/ml 10 ml vial SC SCH ×4 (00:49→18:04)
[2018-03-14] MEDS: Meropenem 500 MG in Sodium Chloride 0.9% 100 ML IVPB SCH ×3 (00:49→18:00)
[2018-03-14 05:44] LABS: ABG ALLEN TEST POS; ARTERIAL BLOOD GAS HCO3 24.2 mmol/L (21-28); ARTERIAL BLOOD GAS HEMOGLOBIN 9.8 g/dL (11.7-17.4); ARTERIAL BLOOD GAS O2 SAT 97.7 % (95-98); ARTERIAL BLOOD GAS PCO2 37 mm/Hg (35-45); ARTERIAL BLOOD GAS PH 7.41 (7.35-7.45); ARTERIAL BLOOD GAS PO2 81 mm/Hg (80-100); ARTERIAL BLOOD GAS TCO2 24.6 mmol/L (22-28)
[2018-03-14 06:25] LABS: BASO % 0.3 % (0.0-2.0); EOS # 0.3 K/uL (0.0-0.7); EOS % 2.1 % (0.0-4.0); HEMOGLOBIN 9.8 g/dL (11.0-16.0); LYMPH # 3.5 K/uL (1.0-4.3); LYMPH % 22.6 % (20.0-40.0); MEAN CELL VOLUME 94.3 fL (81.0-99.0); MEAN CORPUSCULAR HEMOGLOBIN 31.3 pg (27.0-31.0); MEAN CORPUSCULAR HGB CONC 33.2 g/dL (33.0-37.0); MEAN PLATELET VOLUME 11.5 fL (7.2-11.7); MONO # 0.3 K/uL (0.0-0.8); MONO % 1.7 % (0.0-10.0); NEUT # 11.5 K/uL (1.8-7.0); NEUT % 73.3 % (50.0-75.0); RBC 3.13 Mil/uL (3.80-5.20); RED CELL DISTRIBUTION WIDTH 16.3 % (11.5-14.5); WHITE BLOOD COUNT 15.7 K/uL (4.8-10.8)
[2018-03-14 06:47] LABS: ALB/GLOB RATIO 0.8 (1.0-2.1); ALT/SGPT 30 U/L (9-52); AST/SGOT 35 U/L (14-36); BLOOD UREA NITROGEN 33 mg/dL (7-17); GFR NON-AFRICAN AMERICAN > 60
[2018-03-14] MEDS: metroNIDAZOLE IV 500 mg/100 ml 500 MG/100 ML BAG IVPB SCH ×3 (06:48→23:44)
[2018-03-14] MEDS: Furosemide 100 MG in Sodium Chloride 0.9% 90 ML IV SCH ×2 (07:36→18:02)
--- NOTE | 2018-03-14 07:57 | CP.CCUPN ---
<Emy Morse - Last Filed: 03/14/18 14:53> CCU Subjective - Physician Review Events Since Last Encounter (Free Text): 03/14/18 07:54 Patient continued to have decreased urine output and was given IV Bumex. Subjective (Free Text): 03/14/18 07:55 Patient was seen and examined this morning. Patient remains intubated and on Fentanyl. Patient is not agitated. She is arousable to painful stimuli. She is on pressure support trial. Her urine output continues to decline. Discussed with son at bedside grave prognosis and code status. Son stated that he needs to talk with other family members before considering DNR. Critical Care Time Spent (in minutes): 35 CCU Objective - Vital Signs / Intake & Output Vital Signs (Last 4 hours): Vital Signs Temp Pulse Resp BP Pulse Ox 03/14/18 07:36 130/41 L 03/14/18 07:07 110 H 20 130/41 L 97 03/14/18 06:09 109 H 16 121/41 L 98 03/14/18 04:54 100.7 F H 03/14/18 04:07 98 H 16 102/36 L 97 03/14/18 04:00 100.7 F H Intake and Output (Last 8hrs): Intake & Output 03/13/18 03/14/18 03/14/18 22:59 06:59 14:59 Intake Total 1295.7 1197.2 93.4 Output Total 285 991 Balance 1010.7 206.2 93.4 Weight 234 lb 12.677 oz Intake: IV 250 250 Intake, IV Amount 1045.7 947.2 93.4 Left Wrist 92.9 94.4 11.8 R Hand 300 200 Right Distal IJ 80 80 10 Right Distal Port 336 336 42 Internal Jugular Right Medial Port 236.8 236.8 29.6 Internal Jugular Output: Gastric Amount 50 Right 50 Drainage 60 800 LEFT JEJUNOSTOMY 0 0 Right Nare 0 abdominal wound drain 60 800 Urine 175 191 Urethral (Tran) 175 191 Other: # Bowel Movements 0 - Physical Exam Head: Positive for: Atraumatic, Normocephalic Pupils: Positive for: PERRL Extroacular Muscles: Positive for: EOMI Nose (External): Positive for: Other (NGT) Respiratory/Chest: Positive for: Clear to Auscultation, Other (on vent, intub ated) Cardiovascular: Positive for: Normal S1, S2. Negative for: Murmurs Abdomen: Positive for: Tenderness (oozing from abdominal surgical site.), Di stention Upper Extremity: Positive for: Edema Lower Extremity: Positive for: Edema, Other (R TLC) Neurological: Positive for: Other (sedated) Skin: Positive for: Warm, Normal Color - Medications Active Medications: Active Medications Generic Name Dose Route Start Last Admin Trade Name Freq PRN Reason Stop Dose Admin Dextrose 0 ml 03/06/18 15:02 03/11/18 00:13 Dextrose 50% Inj IV 50 ml STAT PRN Administration Hypoglycemia Protocol Protocol Dextrose 0 gm 03/06/18 15:02 Glutose 15 PO ONCE PRN Hypoglycemia Protocol Protocol Glucagon 0 mg 03/06/18 15:02 Glucagen Diagnostic Kit IM STAT PRN Hypoglycemia Protocol Protocol Hydromorphone HCl 0.25 mg 03/10/18 20:35 03/13/18 12:58 Dilaudid IVP 0.25 mg Q4H PRN Administration Pain, severe (8-10) Norepinephrine Bitartrate 4 mg 250 mls @ 15 mls/hr 03/10/18 12:30 03/12/18 19:30 / Sodium Chloride IV 0 mcg/min .[id number] PRN 0 mls/hr TITRATE PER MD ORDER Titration Protocol 4 MCG/MIN Propofol 1,000 mg in 100 mls @ 10.733 mls/hr 03/10/18 23:16 03/13/18 11:10 Diprivan IV 0 mcg/kg/min .[id number] PRN 0 mls/hr TITRATE PER MD ORDER Titration Protocol 18.75 MCG/KG/MIN Fentanyl Citrate 2,500 mcg/ 250 mls @ 28.62 mls/hr 03/10/18 23:30 03/14/18 05:44 Sodium Chloride IV 3 mcg/kg/hr .[id number] ARPIT 28.62 mls/hr Administration Protocol 3 MCG/KG/HR Heparin Sodium/Sodium Chloride 25,000 units in 250 mls @ 9.54 mls/hr 03/10/18 23:20 03/13/18 19:17 Heparin 13786 Units/250ml 1/2 Normal Saline IV 12.13 units/kg/hr .Q24H PRN 11.572 mls/hr ADJUST RATE PER PROTOCOL Administration Protocol 10 UNITS/KG/HR Meropenem 500 mg/ Sodium 100 mls @ 100 mls/hr 03/12/18 17:00 03/14/18 00:49 Chloride IVPB 100 mls/hr Q8H ARPIT Administration Protocol Furosemide 100 mg/ Sodium 100 mls @ 10 mls/hr 03/13/18 12:00 03/14/18 07:36 Chloride IV 10 mls/hr .Q10H ARPIT Administration 10 MG/HR Amino Acids/Electrolytes/Dextrose 1,000 mls @ 42 mls/hr 03/13/18 18:00 03/13/18 17:07 Clinimix 5/20 % "E" (1000 Ml) IV 03/14/18 17:48 42 mls/hr .[id number] ARPIT Administration Metronidazole 500 mg in 100 mls @ 100 mls/hr 03/13/18 15:00 03/14/18 06:48 Flagyl IVPB 100 mls/hr Q8H ARPIT Administration Protocol Insulin Aspart 0 unit 03/06/18 18:00 03/14/18 05:44 Novolog SC 3 unit Q6H ARPIT Administration Protocol Pantoprazole Sodium 40 mg 03/07/18 10:00 03/13/18 21:58 Protonix Inj IVP 40 mg Q12H ARPIT Administration Vitamin A 0.5 ea 03/10/18 20:33 03/13/18 11:26 Vitamin A & D Oint Ud Foilpak TOP 0.5 ea Q4 PRN Administration Lip dryness - Patient Studies Lab Studies: Lab Studies 03/14/18 03/14/18 03/14/18 Range/Units 06:12 06:12 06:12 WBC 15.7 H (4.8-10.8) K/uL RBC 3.13 L (3.80-5.20) Mil/uL Hgb 9.8 L (11.0-16.0) g/dL Hct 29.5 L (34.0-47.0) % MCV 94.3 (81.0-99.0) fL MCH 31.3 H (27.0-31.0) pg MCHC 33.2 (33.0-37.0) g/dL RDW 16.3 H (11.5-14.5) % Plt Count 132 (130-400) K/uL MPV 11.5 (7.2-11.7) fL Neut % (Auto) 73.3 (50.0-75.0) % Lymph % (Auto) 22.6 (20.0-40.0) % Johnston % (Auto) 1.7 (0.0-10.0) % Eos % (Auto) 2.1 (0.0-4.0) % Baso % (Auto) 0.3 (0.0-2.0) % Neut # (Auto) 11.5 H (1.8-7.0) K/uL Lymph # (Auto) 3.5 (1.0-4.3) K/uL Johnston # (Auto) 0.3 (0.0-0.8) K/uL Eos # (Auto) 0.3 (0.0-0.7) K/uL Baso # (Auto) 0.0 (0.0-0.2) K/uL Differential Comment APTT 51 H (21-34) SECONDS Puncture Site pCO2 (35-45) mm/Hg pO2 (80-100) mm/Hg HCO3 (21-28) mmol/L ABG pH (7.35-7.45) ABG Total CO2 (22-28) mmol/L ABG O2 Saturation (95-98) % ABG Base Excess (-2.0-3.0) mmol/L ABG Hemoglobin (11.7-17.4) g/dL ABG Carboxyhemoglobin (0.5-1.5) % POC ABG HHb (Measured) (0.0-5.0) % ABG Methemoglobin (0.0-3.0) % Michele Test A-a O2 Difference mm/Hg Respiratory Index Hgb O2 Saturation (95.0-98.0) % Vent Mode Mechanical Rate FiO2 % Tidal Volume PEEP Sodium 139 (132-148) mmol/L Potassium 3.3 L (3.6-5.2) mmol/L Chloride 107 (98-107) mmol/L Carbon Dioxide 22 (22-30) mmol/L Anion Gap 13 (10-20) BUN 33 H (7-17) mg/dL Creatinine 0.9 (0.7-1.2) mg/dL Est GFR ( Amer) > 60 Est GFR (Non-Af Amer) > 60 POC Glucose (mg/dL) (65-110) mg/dL Random Glucose 259 H (65-105) mg/dL Calcium 7.0 L (8.6-10.4) mg/dl Phosphorus 2.4 L (2.5-4.5) mg/dL Magnesium 1.8 (1.6-2.3) mg/dL Total Bilirubin 6.1 H (0.2-1.3) mg/dL AST 35 (14-36) U/L ALT 30 (9-52) U/L Alkaline Phosphatase 118 (38-126) U/L Total Protein 4.5 L (6.3-8.3) g/dL Albumin 2.0 L (3.5-5.0) g/dL Globulin 2.5 (2.2-3.9) gm/dL Albumin/Globulin Ratio 0.8 L (1.0-2.1) 03/14/18 03/13/18 03/13/18 Range/Units 05:28 22:31 15:55 WBC (4.8-10.8) K/uL RBC (3.80-5.20) Mil/uL Hgb (11.0-16.0) g/dL Hct (34.0-47.0) % MCV (81.0-99.0) fL MCH (27.0-31.0) pg MCHC (33.0-37.0) g/dL RDW (11.5-14.5) % Plt Count (130-400) K/uL MPV (7.2-11.7) fL Neut % (Auto) (50.0-75.0) % Lymph % (Auto) (20.0-40.0) % Johnston % (Auto) (0.0-10.0) % Eos % (Auto) (0.0-4.0) % Baso % (Auto) (0.0-2.0) % Neut # (Auto) (1.8-7.0) K/uL Lymph # (Auto) (1.0-4.3) K/uL Johnston # (Auto) (0.0-0.8) K/uL Eos # (Auto) (0.0-0.7) K/uL Baso # (Auto) (0.0-0.2) K/uL Differential Comment APTT 53 H 53 H D (21-34) SECONDS Puncture Site Rr pCO2 37 (35-45) mm/Hg pO2 81 (80-100) mm/Hg HCO3 24.2 (21-28) mmol/L ABG pH 7.41 (7.35-7.45) ABG Total CO2 24.6 (22-28) mmol/L ABG O2 Saturation 97.7 (95-98) % ABG Base Excess -0.9 (-2.0-3.0) mmol/L ABG Hemoglobin 9.8 L (11.7-17.4) g/dL ABG Carboxyhemoglobin 2.1 H (0.5-1.5) % POC ABG HHb (Measured) 2.2 (0.0-5.0) % ABG Methemoglobin 0.6 (0.0-3.0) % Michele Test Pos A-a O2 Difference 229.0 mm/Hg Respiratory Index 2.8 Hgb O2 Saturation 95.1 (95.0-98.0) % Vent Mode Prvc Mechanical Rate 16 FiO2 50.0 % Tidal Volume 450 PEEP 5 Sodium (132-148) mmol/L Potassium (3.6-5.2) mmol/L Chloride (98-107) mmol/L Carbon Dioxide (22-30) mmol/L Anion Gap (10-20) BUN (7-17) mg/dL Creatinine (0.7-1.2) mg/dL Est GFR ( Amer) Est GFR (Non-Af Amer) POC Glucose (mg/dL) (65-110) mg/dL Random Glucose (65-105) mg/dL Calcium (8.6-10.4) mg/dl Phosphorus (2.5-4.5) mg/dL Magnesium (1.6-2.3) mg/dL Total Bilirubin (0.2-1.3) mg/dL AST (14-36) U/L ALT (9-52) U/L Alkaline Phosphatase (38-126) U/L Total Protein (6.3-8.3) g/dL Albumin (3.5-5.0) g/dL Globulin (2.2-3.9) gm/dL Albumin/Globulin Ratio (1.0-2.1) 03/13/18 03/13/18 03/13/18 Range/Units 08:21 08:21 07:48 WBC 12.9 H (4.8-10.8) K/uL RBC 2.63 L (3.80-5.20) Mil/uL Hgb 8.5 L (11.0-16.0) g/dL Hct 25.2 L (34.0-47.0) % MCV 95.7 D (81.0-99.0) fL MCH 32.2 H (27.0-31.0) pg MCHC 33.6 (33.0-37.0) g/dL RDW 16.6 H (11.5-14.5) % Plt Count 187 (130-400) K/uL MPV 11.3 (7.2-11.7) fL Neut % (Auto) 85.9 H (50.0-75.0) % Lymph % (Auto) 10.8 L (20.0-40.0) % Johnston % (Auto) 1.1 (0.0-10.0) % Eos % (Auto) 1.8 (0.0-4.0) % Baso % (Auto) 0.4 (0.0-2.0) % Neut # (Auto) 11.1 H (1.8-7.0) K/uL Lymph # (Auto) 1.4 (1.0-4.3) K/uL Johnston # (Auto) 0.1 (0.0-0.8) K/uL Eos # (Auto) 0.2 (0.0-0.7) K/uL Baso # (Auto) 0.1 (0.0-0.2) K/uL Differential Comment APTT 44 H (21-34) SECONDS Puncture Site pCO2 (35-45) mm/Hg pO2 (80-100) mm/Hg HCO3 (21-28) mmol/L ABG pH (7.35-7.45) ABG Total CO2 (22-28) mmol/L ABG O2 Saturation (95-98) % ABG Base Excess (-2.0-3.0) mmol/L ABG Hemoglobin (11.7-17.4) g/dL ABG Carboxyhemoglobin (0.5-1.5) % POC ABG HHb (Measured) (0.0-5.0) % ABG Methemoglobin (0.0-3.0) % Michele Test A-a O2 Difference mm/Hg Respiratory Index Hgb O2 Saturation (95.0-98.0) % Vent Mode Mechanical Rate FiO2 % Tidal Volume PEEP Sodium (132-148) mmol/L Potassium (3.6-5.2) mmol/L Chloride (98-107) mmol/L Carbon Dioxide (22-30) mmol/L Anion Gap (10-20) BUN (7-17) mg/dL Creatinine (0.7-1.2) mg/dL Est GFR ( Amer) Est GFR (Non-Af Amer) POC Glucose (mg/dL) 197 H (65-110) mg/dL Random Glucose (65-105) mg/dL Calcium (8.6-10.4) mg/dl Phosphorus (2.5-4.5) mg/dL Magnesium (1.6-2.3) mg/dL Total Bilirubin (0.2-1.3) mg/dL AST (14-36) U/L ALT (9-52) U/L Alkaline Phosphatase (38-126) U/L Total Protein (6.3-8.3) g/dL Albumin (3.5-5.0) g/dL Globulin (2.2-3.9) gm/dL Albumin/Globulin Ratio (1.0-2.1) 03/13/18 Range/Units 05:30 WBC 14.1 H (4.8-10.8) K/uL RBC 2.81 L (3.80-5.20) Mil/uL Hgb 9.1 L D (11.0-16.0) g/dL Hct 25.4 L (34.0-47.0) % MCV 90.6 D (81.0-99.0) fL MCH 32.5 H (27.0-31.0) pg MCHC 35.8 (33.0-37.0) g/dL RDW 24.5 H (11.5-14.5) % Plt Count 199 (130-400) K/uL MPV 11.2 (7.2-11.7) fL Neut % (Auto) 77.5 H (50.0-75.0) % Lymph % (Auto) 11.5 L (20.0-40.0) % Johnston % (Auto) 1.0 (0.0-10.0) % Eos % (Auto) 9.5 H (0.0-4.0) % Baso % (Auto) 0.5 (0.0-2.0) % Neut # (Auto) 10.9 H (1.8-7.0) K/uL Lymph # (Auto) 1.6 (1.0-4.3) K/uL Johnston # (Auto) 0.1 (0.0-0.8) K/uL Eos # (Auto) 1.3 H (0.0-0.7) K/uL Baso # (Auto) 0.1 (0.0-0.2) K/uL Differential Comment APTT (21-34) SECONDS Puncture Site pCO2 (35-45) mm/Hg pO2 (80-100) mm/Hg HCO3 (21-28) mmol/L ABG pH (7.35-7.45) ABG Total CO2 (22-28) mmol/L ABG O2 Saturation (95-98) % ABG Base Excess (-2.0-3.0) mmol/L ABG Hemoglobin (11.7-17.4) g/dL ABG Carboxyhemoglobin (0.5-1.5) % POC ABG HHb (Measured) (0.0-5.0) % ABG Methemoglobin (0.0-3.0) % Michele Test A-a O2 Difference mm/Hg Respiratory Index Hgb O2 Saturation (95.0-98.0) % Vent Mode Mechanical Rate FiO2 % Tidal Volume PEEP Sodium (132-148) mmol/L Potassium (3.6-5.2) mmol/L Chloride (98-107) mmol/L Carbon Dioxide (22-30) mmol/L Anion Gap (10-20) BUN (7-17) mg/dL Creatinine (0.7-1.2) mg/dL Est GFR ( Amer) Est GFR (Non-Af Amer) POC Glucose (mg/dL) (65-110) mg/dL Random Glucose (65-105) mg/dL Calcium (8.6-10.4) mg/dl Phosphorus (2.5-4.5) mg/dL Magnesium (1.6-2.3) mg/dL Total Bilirubin (0.2-1.3) mg/dL AST (14-36) U/L ALT (9-52) U/L Alkaline Phosphatase (38-126) U/L Total Protein (6.3-8.3) g/dL Albumin (3.5-5.0) g/dL Globulin (2.2-3.9) gm/dL Albumin/Globulin Ratio (1.0-2.1) Laboratory Results - last 24 hr 03/13/18 03/13/18 03/13/18 05:30 07:48 08:21 WBC 14.1 H 12.9 H RBC 2.81 L 2.63 L Hgb 9.1 L D 8.5 L Hct 25.4 L 25.2 L MCV 90.6 D 95.7 D MCH 32.5 H 32.2 H MCHC 35.8 33.6 RDW 24.5 H 16.6 H Plt Count 199 187 MPV 11.2 11.3 Neut % (Auto) 77.5 H 85.9 H Lymph % (Auto) 11.5 L 10.8 L Johnston % (Auto) 1.0 1.1 Eos % (Auto) 9.5 H 1.8 Baso % (Auto) 0.5 0.4 Neut # (Auto) 10.9 H 11.1 H Lymph # (Auto) 1.6 1.4 Johnston # (Auto) 0.1 0.1 Eos # (Auto) 1.3 H 0.2 Baso # (Auto) 0.1 0.1 Differential Comment APTT Puncture Site pCO2 pO2 HCO3 ABG pH ABG Total CO2 ABG O2 Saturation ABG Base Excess ABG Hemoglobin ABG Carboxyhemoglobin POC ABG HHb (Measured) ABG Methemoglobin Michele Test A-a O2 Difference Respiratory Index Hgb O2 Saturation Vent Mode Mechanical Rate FiO2 Tidal Volume PEEP Sodium Potassium Chloride Carbon Dioxide Anion Gap BUN Creatinine Est GFR ( Amer) Est GFR (Non-Af Amer) POC Glucose (mg/dL) 197 H Random Glucose Calcium Phosphorus Magnesium Total Bilirubin AST ALT Alkaline Phosphatase Total Protein Albumin Globulin Albumin/Globulin Ratio 03/13/18 03/13/18 03/13/18 08:21 15:55 22:31 WBC RBC Hgb Hct MCV MCH MCHC RDW Plt Count MPV Neut % (Auto) Lymph % (Auto) Johnston % (Auto) Eos % (Auto) Baso % (Auto) Neut # (Auto) Lymph # (Auto) Johnston # (Auto) Eos # (Auto) Baso # (Auto) Differential Comment APTT 44 H 53 H D 53 H Puncture Site pCO2 pO2 HCO3 ABG pH ABG Total CO2 ABG O2 Saturation ABG Base Excess ABG Hemoglobin ABG Carboxyhemoglobin POC ABG HHb (Measured) ABG Methemoglobin Michele Test A-a O2 Difference Respiratory Index Hgb O2 Saturation Vent Mode Mechanical Rate FiO2 Tidal Volume PEEP Sodium Potassium Chloride Carbon Dioxide Anion Gap BUN Creatinine Est GFR ( Amer) Est GFR (Non-Af Amer) POC Glucose (mg/dL) Random Glucose Calcium Phosphorus Magnesium Total Bilirubin AST ALT Alkaline Phosphatase Total Protein Albumin Globulin Albumin/Globulin Ratio 03/14/18 03/14/18 03/14/18 05:28 06:12 06:12 WBC 15.7 H RBC 3.13 L Hgb 9.8 L Hct 29.5 L MCV 94.3 MCH 31.3 H MCHC 33.2 RDW 16.3 H Plt Count 132 MPV 11.5 Neut % (Auto) 73.3 Lymph % (Auto) 22.6 Johnston % (Auto) 1.7 Eos % (Auto) 2.1 Baso % (Auto) 0.3 Neut # (Auto) 11.5 H Lymph # (Auto) 3.5 Johnston # (Auto) 0.3 Eos # (Auto) 0.3 Baso # (Auto) 0.0 Differential Comment APTT Puncture Site Rr pCO2 37 pO2 81 HCO3 24.2 ABG pH 7.41 ABG Total CO2 24.6 ABG O2 Saturation 97.7 ABG Base Excess -0.9 ABG Hemoglobin 9.8 L ABG Carboxyhemoglobin 2.1 H POC ABG HHb (Measured) 2.2 ABG Methemoglobin 0.6 Michele Test Pos A-a O2 Difference 229.0 Respiratory Index 2.8 Hgb O2 Saturation 95.1 Vent Mode Prvc Mechanical Rate 16 FiO2 50.0 Tidal Volume 450 PEEP 5 Sodium 139 Potassium 3.3 L Chloride 107 Carbon Dioxide 22 Anion Gap 13 BUN 33 H Creatinine 0.9 Est GFR ( Amer) > 60 Est GFR (Non-Af Amer) > 60 POC Glucose (mg/dL) Random Glucose 259 H Calcium 7.0 L Phosphorus 2.4 L Magnesium 1.8 Total Bilirubin 6.1 H AST 35 ALT 30 Alkaline Phosphatase 118 Total Protein 4.5 L Albumin 2.0 L Globulin 2.5 Albumin/Globulin Ratio 0.8 L 03/14/18 06:12 WBC RBC Hgb Hct MCV MCH MCHC RDW Plt Count MPV Neut % (Auto) Lymph % (Auto) Johnston % (Auto) Eos % (Auto) Baso % (Auto) Neut # (Auto) Lymph # (Auto) Johnston # (Auto) Eos # (Auto) Baso # (Auto) Differential Comment APTT 51 H Puncture Site pCO2 pO2 HCO3 ABG pH ABG Total CO2 ABG O2 Saturation ABG Base Excess ABG Hemoglobin ABG Carboxyhemoglobin POC ABG HHb (Measured) ABG Methemoglobin Michele Test A-a O2 Difference Respiratory Index Hgb O2 Saturation Vent Mode Mechanical Rate FiO2 Tidal Volume PEEP Sodium Potassium Chloride Carbon Dioxide Anion Gap BUN Creatinine Est GFR ( Amer) Est GFR (Non-Af Amer) POC Glucose (mg/dL) Random Glucose Calcium Phosphorus Magnesium Total Bilirubin AST ALT Alkaline Phosphatase Total Protein Albumin Globulin Albumin/Globulin Ratio Fingerstick Blood Sugar Results: 265 Review of Systems - Review of Systems Systems not reviewed;Unavailable: Intubated Critical Care Progress Note - Ventilator Checklist Head of Bed 30 Degrees: Yes Daily Sedation Vacation: Yes Daily Assessment of Readiness to Wean: Yes Daily Spontaneous Breathing Trial: Yes PUD Prophalyxis: Yes DVT Prophylaxis: Yes Oral Care with Chlorhexidine Gluconate {CHG}: Yes - Vent Settings MODE:: PRESSURE SUPPORT PEEP:: 5 PRESSURE SUPPORT:: 15 - Extremities/Vascular Does the Patient have a Central Venous Catheter?: Yes Insertion Site: Femoral Vein Does the Patient need a Central Venous Catheter?: Yes Does the Patient have a Tran Catheter?: Yes Does the Patient need a Tran Catheter?: Yes Catheter Insertion Criteria: Need for accurate measurement of output in critically ill patient - Prophylaxis GI Prophylaxis GI: PPI - Prophylaxis DVT Prophylaxis DVT: Not Indicated (heparin drip) - Nutrition Nutrition: Nutrition Category Date Time Status NPO Diet [DIET] Diets 03/06/18 Breakfast Active Assessment/Plan - Assessment and Plan (Free Text) Assessment: Patient is an 82 yo female with a 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 She has been in a longterm since this surgery. She presented to ED today with nausea, vomiting, abdominal pain, and lethargy. CT A/P demonstrated significant ischemic bowel. Subsequent CT demonstrated several GI infarcts, including SMA, hepatic, and splenic. She has had 2 ex-laps with lysis of adhesions (03/06) and partial small bowel resection (03/11). Patient continues to be intubated. Her urine output continues to significantly decline despite Lasix drip, and she is becoming overall more edematous. Patient has NGT with intermittent suction and TPN. Plan: Neuro: - Monitor neuro status- presently arousable to painful stimuli, not agitated - Fentanyl drip CV: - R femoral TLC - Off pressors - Monitor vitals- episode of Afib, now sinus tachycardia (90s-100s) Pulm: Fluid overload - Intubated- pressure support trials - ABG: pH 7.41, pCO2 37, pO2 81 (poor pO2:FiO2 ratio) - CXR: mod-severe venous congestion, dense confluent airspace opacification in mid-lower lungs, prominent - Lasix drip GI: Ischemic bowel - NPO - NGT to suction - TPN QOD - Dilaudid 0.25 mg IV Q4H - CT A/P 03/06 (pre-op): ischemic small bowel, extensive pneumatosis intestinalis, mesenteric venous gas, intrahepatic portal venous gas, ascites - CTA A/P 03/07: hepatic infarct, splenic infarcts, branch of SMA obstructed - CT A/P 03/10: small and large bowel wall thickening consistent with ischemic bowel, free intraperitoneal air, interval progressive increase in extensive SQ gas/air consistent with SQ emphysema, extensive anasarca - GI consulted (Patricia) - Hem/onc consulted (Pritesh)- intrahepatic biliary CA s/p Whipple - Surgery consulted (Fortino)- s/p 2 ex-laps : - I's & O's - Poor urine output- 586 mL over last 24 hrs - Last 24 hrs overall +2572 mL - Lasix drip - Albumin 5% drip - Replete electrolytes PRN Endo: T2DM - Maintain euglycemia - Hypoglycemia protocol - Accuchecks Q6H with ISS and insulin in TPN Heme: - Heparin drip - Monitor H&H- Hgb stable (9.8) - s/p 2 uPRBC intra-op - Monitor PT/INR/PTT - s/p 1 u FFP - Hem/onc consulted (Pritesh) ID: Septic shock - Code sepsis - 03/14 5AM 100.7 - LA improving (13.5->3) - Leukocytosis stable (15.7) - Trach Cx: Klebsiella - Blood Cx: no growth - Meropenem 500 mg IV Q8H- started 03/10 - Flagyl 500 mg IV Q8H- start 03/12 - ID consulted (Bee) PPx: VTE: heparin drip GI: PTX 40 mg IV Q12H Code status: full code- palliative consulted Case discussed with attending, Dr. Gallegos. PGY-1 Emy Morse D.O. <Seymour Gallegos - Last Filed: 03/14/18 16:02> CCU Objective - Vital Signs / Intake & Output Intake and Output (Last 8hrs): Intake & Output 03/14/18 03/14/18 03/14/18 06:59 14:59 22:59 Intake Total 1197.2 93.4 Output Total 991 Balance 206.2 93.4 Weight 234 lb 12.677 oz Intake: IV 250 0 Intake, IV Amount 947.2 93.4 Left Wrist 94.4 11.8 R Hand 200 Right Distal IJ 80 10 Right Distal Port 336 42 Internal Jugular Right Medial Port 236.8 29.6 Internal Jugular Output: Drainage 800 LEFT JEJUNOSTOMY 0 Right Nare 0 abdominal wound drain 800 Urine 191 Urethral (Tran) 191 Other: # Bowel Movements 0 - Medications Active Medications: Active Medications Generic Name Dose Route Start Last Admin Trade Name Freq PRN Reason Stop Dose Admin Albumin Human 12.5 gm 03/14/18 10:00 03/14/18 13:59 Albumin Human 25% (12.5 Gm/50 Ml) IV 03/14/18 18:01 12.5 gm Q2 ARPIT Administration Dextrose 0 ml 03/06/18 15:02 03/11/18 00:13 Dextrose 50% Inj IV 50 ml STAT PRN Administration Hypoglycemia Protocol Protocol Dextrose 0 gm 03/06/18 15:02 Glutose 15 PO ONCE PRN Hypoglycemia Protocol Protocol Glucagon 0 mg 03/06/18 15:02 Glucagen Diagnostic Kit IM STAT PRN Hypoglycemia Protocol Protocol Hydromorphone HCl 0.25 mg 03/10/18 20:35 03/13/18 12:58 Dilaudid IVP 0.25 mg Q4H PRN Administration Pain, severe (8-10) Norepinephrine Bitartrate 4 mg 250 mls @ 15 mls/hr 03/10/18 12:30 03/12/18 19:30 / Sodium Chloride IV 0 mcg/min .[id number] PRN 0 mls/hr TITRATE PER MD ORDER Titration Protocol 4 MCG/MIN Fentanyl Citrate 2,500 mcg/ 250 mls @ 28.62 mls/hr 03/10/18 23:30 03/14/18 10:47 Sodium Chloride IV 2 mcg/kg/hr .[id number] ARPIT 19.08 mls/hr Titration Protocol 3 MCG/KG/HR Heparin Sodium/Sodium Chloride 25,000 units in 250 mls @ 9.54 mls/hr 03/10/18 23:20 03/13/18 19:17 Heparin 81678 Units/250ml 1/2 Normal Saline IV 12.13 units/kg/hr .Q24H PRN 11.572 mls/hr ADJUST RATE PER PROTOCOL Administration Protocol 10 UNITS/KG/HR Meropenem 500 mg/ Sodium 100 mls @ 100 mls/hr 03/12/18 17:00 03/14/18 09:41 Chloride IVPB 100 mls/hr Q8H ARPIT Administration Protocol Furosemide 100 mg/ Sodium 100 mls @ 10 mls/hr 03/13/18 12:00 03/14/18 07:36 Chloride IV 10 mls/hr .Q10H ARPIT Administration 10 MG/HR Amino Acids/Electrolytes/Dextrose 1,000 mls @ 42 mls/hr 03/13/18 18:00 03/13/18 17:07 Clinimix 5/20 % "E" (1000 Ml) IV 03/14/18 17:48 42 mls/hr .[id number] ARPIT Administration Metronidazole 500 mg in 100 mls @ 100 mls/hr 03/13/18 15:00 03/14/18 06:48 Flagyl IVPB 100 mls/hr Q8H ARPIT Administration Protocol Chromium/Copper/Manganese/Zinc 1,011.1 mls @ 42 mls/hr 11/16/18 18:00 1 ml/ Multivitamins/Vitamin C IV 10 ml/ Insulin Human Regular .Q24H ARPIT 10 unit/ Amino Acids/ Electrolytes/Dextrose Fat Emulsion Intravenous 500 mls @ 42 mls/hr 03/14/18 18:00 Intralipid 20% IV 03/15/18 05:54 ONCE ONE Insulin Aspart 0 unit 03/06/18 18:00 03/14/18 13:31 Novolog SC 3 unit Q6H ARPIT Administration Protocol Pantoprazole Sodium 40 mg 03/07/18 10:00 03/14/18 10:50 Protonix Inj IVP 40 mg Q12H ARPIT Administration Vitamin A 0.5 ea 03/10/18 20:33 03/14/18 10:51 Vitamin A & D Oint Ud Foilpak TOP 0.5 ea Q4 PRN Administration Lip dryness - Patient Studies Lab Studies: Lab Studies 03/14/18 03/14/18 03/14/18 Range/Units 11:27 06:12 06:12 WBC (4.8-10.8) K/uL RBC (3.80-5.20) Mil/uL Hgb (11.0-16.0) g/dL Hct (34.0-47.0) % MCV (81.0-99.0) fL MCH (27.0-31.0) pg MCHC (33.0-37.0) g/dL RDW (11.5-14.5) % Plt Count (130-400) K/uL MPV (7.2-11.7) fL Neut % (Auto) (50.0-75.0) % Lymph % (Auto) (20.0-40.0) % Johnston % (Auto) (0.0-10.0) % Eos % (Auto) (0.0-4.0) % Baso % (Auto) (0.0-2.0) % Neut # (Auto) (1.8-7.0) K/uL Lymph # (Auto) (1.0-4.3) K/uL Johnston # (Auto) (0.0-0.8) K/uL Eos # (Auto) (0.0-0.7) K/uL Baso # (Auto) (0.0-0.2) K/uL APTT 51 H (21-34) SECONDS Puncture Site pCO2 (35-45) mm/Hg pO2 (80-100) mm/Hg HCO3 (21-28) mmol/L ABG pH (7.35-7.45) ABG Total CO2 (22-28) mmol/L ABG O2 Saturation (95-98) % ABG Base Excess (-2.0-3.0) mmol/L ABG Hemoglobin (11.7-17.4) g/dL ABG Carboxyhemoglobin (0.5-1.5) % POC ABG HHb (Measured) (0.0-5.0) % ABG Methemoglobin (0.0-3.0) % Michele Test A-a O2 Difference mm/Hg Respiratory Index Hgb O2 Saturation (95.0-98.0) % Vent Mode Mechanical Rate FiO2 % Tidal Volume PEEP Sodium 139 (132-148) mmol/L Potassium 3.3 L (3.6-5.2) mmol/L Chloride 107 (98-107) mmol/L Carbon Dioxide 22 (22-30) mmol/L Anion Gap 13 (10-20) BUN 33 H (7-17) mg/dL Creatinine 0.9 (0.7-1.2) mg/dL Est GFR ( Amer) > 60 Est GFR (Non-Af Amer) > 60 POC Glucose (mg/dL) 295 H (65-110) mg/dL Random Glucose 259 H (65-105) mg/dL Calcium 7.0 L (8.6-10.4) mg/dl Phosphorus 2.4 L (2.5-4.5) mg/dL Magnesium 1.8 (1.6-2.3) mg/dL Total Bilirubin 6.1 H (0.2-1.3) mg/dL AST 35 (14-36) U/L ALT 30 (9-52) U/L Alkaline Phosphatase 118 (38-126) U/L Total Protein 4.5 L (6.3-8.3) g/dL Albumin 2.0 L (3.5-5.0) g/dL Globulin 2.5 (2.2-3.9) gm/dL Albumin/Globulin Ratio 0.8 L (1.0-2.1) 03/14/18 03/14/18 03/14/18 Range/Units 06:12 05:33 05:28 WBC 15.7 H (4.8-10.8) K/uL RBC 3.13 L (3.80-5.20) Mil/uL Hgb 9.8 L (11.0-16.0) g/dL Hct 29.5 L (34.0-47.0) % MCV 94.3 (81.0-99.0) fL MCH 31.3 H (27.0-31.0) pg MCHC 33.2 (33.0-37.0) g/dL RDW 16.3 H (11.5-14.5) % Plt Count 132 (130-400) K/uL MPV 11.5 (7.2-11.7) fL Neut % (Auto) 73.3 (50.0-75.0) % Lymph % (Auto) 22.6 (20.0-40.0) % Johnston % (Auto) 1.7 (0.0-10.0) % Eos % (Auto) 2.1 (0.0-4.0) % Baso % (Auto) 0.3 (0.0-2.0) % Neut # (Auto) 11.5 H (1.8-7.0) K/uL Lymph # (Auto) 3.5 (1.0-4.3) K/uL Johnston # (Auto) 0.3 (0.0-0.8) K/uL Eos # (Auto) 0.3 (0.0-0.7) K/uL Baso # (Auto) 0.0 (0.0-0.2) K/uL APTT (21-34) SECONDS Puncture Site Rr pCO2 37 (35-45) mm/Hg pO2 81 (80-100) mm/Hg HCO3 24.2 (21-28) mmol/L ABG pH 7.41 (7.35-7.45) ABG Total CO2 24.6 (22-28) mmol/L ABG O2 Saturation 97.7 (95-98) % ABG Base Excess -0.9 (-2.0-3.0) mmol/L ABG Hemoglobin 9.8 L (11.7-17.4) g/dL ABG Carboxyhemoglobin 2.1 H (0.5-1.5) % POC ABG HHb (Measured) 2.2 (0.0-5.0) % ABG Methemoglobin 0.6 (0.0-3.0) % Michele Test Pos A-a O2 Difference 229.0 mm/Hg Respiratory Index 2.8 Hgb O2 Saturation 95.1 (95.0-98.0) % Vent Mode Prvc Mechanical Rate 16 FiO2 50.0 % Tidal Volume 450 PEEP 5 Sodium (132-148) mmol/L Potassium (3.6-5.2) mmol/L Chloride (98-107) mmol/L Carbon Dioxide (22-30) mmol/L Anion Gap (10-20) BUN (7-17) mg/dL Creatinine (0.7-1.2) mg/dL Est GFR ( Amer) Est GFR (Non-Af Amer) POC Glucose (mg/dL) 265 H (65-110) mg/dL Random Glucose (65-105) mg/dL Calcium (8.6-10.4) mg/dl Phosphorus (2.5-4.5) mg/dL Magnesium (1.6-2.3) mg/dL Total Bilirubin (0.2-1.3) mg/dL AST (14-36) U/L ALT (9-52) U/L Alkaline Phosphatase (38-126) U/L Total Protein (6.3-8.3) g/dL Albumin (3.5-5.0) g/dL Globulin (2.2-3.9) gm/dL Albumin/Globulin Ratio (1.0-2.1) 03/14/18 03/14/18 03/14/18 Range/Units 00:31 00:08 00:03 WBC (4.8-10.8) K/uL RBC (3.80-5.20) Mil/uL Hgb (11.0-16.0) g/dL Hct (34.0-47.0) % MCV (81.0-99.0) fL MCH (27.0-31.0) pg MCHC (33.0-37.0) g/dL RDW (11.5-14.5) % Plt Count (130-400) K/uL MPV (7.2-11.7) fL Neut % (Auto) (50.0-75.0) % Lymph % (Auto) (20.0-40.0) % Johnston % (Auto) (0.0-10.0) % Eos % (Auto) (0.0-4.0) % Baso % (Auto) (0.0-2.0) % Neut # (Auto) (1.8-7.0) K/uL Lymph # (Auto) (1.0-4.3) K/uL Johnston # (Auto) (0.0-0.8) K/uL Eos # (Auto) (0.0-0.7) K/uL Baso # (Auto) (0.0-0.2) K/uL APTT (21-34) SECONDS Puncture Site pCO2 (35-45) mm/Hg pO2 (80-100) mm/Hg HCO3 (21-28) mmol/L ABG pH (7.35-7.45) ABG Total CO2 (22-28) mmol/L ABG O2 Saturation (95-98) % ABG Base Excess (-2.0-3.0) mmol/L ABG Hemoglobin (11.7-17.4) g/dL ABG Carboxyhemoglobin (0.5-1.5) % POC ABG HHb (Measured) (0.0-5.0) % ABG Methemoglobin (0.0-3.0) % Michele Test A-a O2 Difference mm/Hg Respiratory Index Hgb O2 Saturation (95.0-98.0) % Vent Mode Mechanical Rate FiO2 % Tidal Volume PEEP Sodium (132-148) mmol/L Potassium (3.6-5.2) mmol/L Chloride (98-107) mmol/L Carbon Dioxide (22-30) mmol/L Anion Gap (10-20) BUN (7-17) mg/dL Creatinine (0.7-1.2) mg/dL Est GFR ( Amer) Est GFR (Non-Af Amer) POC Glucose (mg/dL) 259 H 262 H 364 H (65-110) mg/dL Random Glucose (65-105) mg/dL Calcium (8.6-10.4) mg/dl Phosphorus (2.5-4.5) mg/dL Magnesium (1.6-2.3) mg/dL Total Bilirubin (0.2-1.3) mg/dL AST (14-36) U/L ALT (9-52) U/L Alkaline Phosphatase (38-126) U/L Total Protein (6.3-8.3) g/dL Albumin (3.5-5.0) g/dL Globulin (2.2-3.9) gm/dL Albumin/Globulin Ratio (1.0-2.1) 03/13/18 03/13/18 03/13/18 Range/Units 22:31 17:47 15:55 WBC (4.8-10.8) K/uL RBC (3.80-5.20) Mil/uL Hgb (11.0-16.0) g/dL Hct (34.0-47.0) % MCV (81.0-99.0) fL MCH (27.0-31.0) pg MCHC (33.0-37.0) g/dL RDW (11.5-14.5) % Plt Count (130-400) K/uL MPV (7.2-11.7) fL Neut % (Auto) (50.0-75.0) % Lymph % (Auto) (20.0-40.0) % Johnston % (Auto) (0.0-10.0) % Eos % (Auto) (0.0-4.0) % Baso % (Auto) (0.0-2.0) % Neut # (Auto) (1.8-7.0) K/uL Lymph # (Auto) (1.0-4.3) K/uL Johnston # (Auto) (0.0-0.8) K/uL Eos # (Auto) (0.0-0.7) K/uL Baso # (Auto) (0.0-0.2) K/uL APTT 53 H 53 H D (21-34) SECONDS Puncture Site pCO2 (35-45) mm/Hg pO2 (80-100) mm/Hg HCO3 (21-28) mmol/L ABG pH (7.35-7.45) ABG Total CO2 (22-28) mmol/L ABG O2 Saturation (95-98) % ABG Base Excess (-2.0-3.0) mmol/L ABG Hemoglobin (11.7-17.4) g/dL ABG Carboxyhemoglobin (0.5-1.5) % POC ABG HHb (Measured) (0.0-5.0) % ABG Methemoglobin (0.0-3.0) % Michele Test A-a O2 Difference mm/Hg Respiratory Index Hgb O2 Saturation (95.0-98.0) % Vent Mode Mechanical Rate FiO2 % Tidal Volume PEEP Sodium (132-148) mmol/L Potassium (3.6-5.2) mmol/L Chloride (98-107) mmol/L Carbon Dioxide (22-30) mmol/L Anion Gap (10-20) BUN (7-17) mg/dL Creatinine (0.7-1.2) mg/dL Est GFR ( Amer) Est GFR (Non-Af Amer) POC Glucose (mg/dL) 263 H (65-110) mg/dL Random Glucose (65-105) mg/dL Calcium (8.6-10.4) mg/dl Phosphorus (2.5-4.5) mg/dL Magnesium (1.6-2.3) mg/dL Total Bilirubin (0.2-1.3) mg/dL AST (14-36) U/L ALT (9-52) U/L Alkaline Phosphatase (38-126) U/L Total Protein (6.3-8.3) g/dL Albumin (3.5-5.0) g/dL Globulin (2.2-3.9) gm/dL Albumin/Globulin Ratio (1.0-2.1) 03/13/18 Range/Units 11:21 WBC (4.8-10.8) K/uL RBC (3.80-5.20) Mil/uL Hgb (11.0-16.0) g/dL Hct (34.0-47.0) % MCV (81.0-99.0) fL MCH (27.0-31.0) pg MCHC (33.0-37.0) g/dL RDW (11.5-14.5) % Plt Count (130-400) K/uL MPV (7.2-11.7) fL Neut % (Auto) (50.0-75.0) % Lymph % (Auto) (20.0-40.0) % Johnston % (Auto) (0.0-10.0) % Eos % (Auto) (0.0-4.0) % Baso % (Auto) (0.0-2.0) % Neut # (Auto) (1.8-7.0) K/uL Lymph # (Auto) (1.0-4.3) K/uL Johnston # (Auto) (0.0-0.8) K/uL Eos # (Auto) (0.0-0.7) K/uL Baso # (Auto) (0.0-0.2) K/uL APTT (21-34) SECONDS Puncture Site pCO2 (35-45) mm/Hg pO2 (80-100) mm/Hg HCO3 (21-28) mmol/L ABG pH (7.35-7.45) ABG Total CO2 (22-28) mmol/L ABG O2 Saturation (95-98) % ABG Base Excess (-2.0-3.0) mmol/L ABG Hemoglobin (11.7-17.4) g/dL ABG Carboxyhemoglobin (0.5-1.5) % POC ABG HHb (Measured) (0.0-5.0) % ABG Methemoglobin (0.0-3.0) % Michele Test A-a O2 Difference mm/Hg Respiratory Index Hgb O2 Saturation (95.0-98.0) % Vent Mode Mechanical Rate FiO2 % Tidal Volume PEEP Sodium (132-148) mmol/L Potassium (3.6-5.2) mmol/L Chloride (98-107) mmol/L Carbon Dioxide (22-30) mmol/L Anion Gap (10-20) BUN (7-17) mg/dL Creatinine (0.7-1.2) mg/dL Est GFR ( Amer) Est GFR (Non-Af Amer) POC Glucose (mg/dL) 238 H (65-110) mg/dL Random Glucose (65-105) mg/dL Calcium (8.6-10.4) mg/dl Phosphorus (2.5-4.5) mg/dL Magnesium (1.6-2.3) mg/dL Total Bilirubin (0.2-1.3) mg/dL AST (14-36) U/L ALT (9-52) U/L Alkaline Phosphatase (38-126) U/L Total Protein (6.3-8.3) g/dL Albumin (3.5-5.0) g/dL Globulin (2.2-3.9) gm/dL Albumin/Globulin Ratio (1.0-2.1) Laboratory Results - last 24 hr 03/13/18 03/13/18 03/13/18 11:21 15:55 17:47 WBC RBC Hgb Hct MCV MCH MCHC RDW Plt Count MPV Neut % (Auto) Lymph % (Auto) Johnston % (Auto) Eos % (Auto) Baso % (Auto) Neut # (Auto) Lymph # (Auto) Johnston # (Auto) Eos # (Auto) Baso # (Auto) APTT 53 H D Puncture Site pCO2 pO2 HCO3 ABG pH ABG Total CO2 ABG O2 Saturation ABG Base Excess ABG Hemoglobin ABG Carboxyhemoglobin POC ABG HHb (Measured) ABG Methemoglobin Michele Test A-a O2 Difference Respiratory Index Hgb O2 Saturation Vent Mode Mechanical Rate FiO2 Tidal Volume PEEP Sodium Potassium Chloride Carbon Dioxide Anion Gap BUN Creatinine Est GFR ( Amer) Est GFR (Non-Af Amer) POC Glucose (mg/dL) 238 H 263 H Random Glucose Calcium Phosphorus Magnesium Total Bilirubin AST ALT Alkaline Phosphatase Total Protein Albumin Globulin Albumin/Globulin Ratio 03/13/18 03/14/18 03/14/18 22:31 00:03 00:08 WBC RBC Hgb Hct MCV MCH MCHC RDW Plt Count MPV Neut % (Auto) Lymph % (Auto) Johnston % (Auto) Eos % (Auto) Baso % (Auto) Neut # (Auto) Lymph # (Auto) Johnston # (Auto) Eos # (Auto) Baso # (Auto) APTT 53 H Puncture Site pCO2 pO2 HCO3 ABG pH ABG Total CO2 ABG O2 Saturation ABG Base Excess ABG Hemoglobin ABG Carboxyhemoglobin POC ABG HHb (Measured) ABG Methemoglobin Michele Test A-a O2 Difference Respiratory Index Hgb O2 Saturation Vent Mode Mechanical Rate FiO2 Tidal Volume PEEP Sodium Potassium Chloride Carbon Dioxide Anion Gap BUN Creatinine Est GFR ( Amer) Est GFR (Non-Af Amer) POC Glucose (mg/dL) 364 H 262 H Random Glucose Calcium Phosphorus Magnesium Total Bilirubin AST ALT Alkaline Phosphatase Total Protein Albumin Globulin Albumin/Globulin Ratio 03/14/18 03/14/1818 00:31 05:28 05:33 WBC RBC Hgb Hct MCV MCH MCHC RDW Plt Count MPV Neut % (Auto) Lymph % (Auto) Johnston % (Auto) Eos % (Auto) Baso % (Auto) Neut # (Auto) Lymph # (Auto) Johnston # (Auto) Eos # (Auto) Baso # (Auto) APTT Puncture Site Rr pCO2 37 pO2 81 HCO3 24.2 ABG pH 7.41 ABG Total CO2 24.6 ABG O2 Saturation 97.7 ABG Base Excess -0.9 ABG Hemoglobin 9.8 L ABG Carboxyhemoglobin 2.1 H POC ABG HHb (Measured) 2.2 ABG Methemoglobin 0.6 Michele Test Pos A-a O2 Difference 229.0 Respiratory Index 2.8 Hgb O2 Saturation 95.1 Vent Mode Prvc Mechanical Rate 16 FiO2 50.0 Tidal Volume 450 PEEP 5 Sodium Potassium Chloride Carbon Dioxide Anion Gap BUN Creatinine Est GFR ( Amer) Est GFR (Non-Af Amer) POC Glucose (mg/dL) 259 H 265 H Random Glucose Calcium Phosphorus Magnesium Total Bilirubin AST ALT Alkaline Phosphatase Total Protein Albumin Globulin Albumin/Globulin Ratio 03/14/18 03/14/18 03/14/18 06:12 06:12 06:12 WBC 15.7 H RBC 3.13 L Hgb 9.8 L Hct 29.5 L MCV 94.3 MCH 31.3 H MCHC 33.2 RDW 16.3 H Plt Count 132 MPV 11.5 Neut % (Auto) 73.3 Lymph % (Auto) 22.6 Johnston % (Auto) 1.7 Eos % (Auto) 2.1 Baso % (Auto) 0.3 Neut # (Auto) 11.5 H Lymph # (Auto) 3.5 Johnston # (Auto) 0.3 Eos # (Auto) 0.3 Baso # (Auto) 0.0 APTT 51 H Puncture Site pCO2 pO2 HCO3 ABG pH ABG Total CO2 ABG O2 Saturation ABG Base Excess ABG Hemoglobin ABG Carboxyhemoglobin POC ABG HHb (Measured) ABG Methemoglobin Michlee Test A-a O2 Difference Respiratory Index Hgb O2 Saturation Vent Mode Mechanical Rate FiO2 Tidal Volume PEEP Sodium 139 Potassium 3.3 L Chloride 107 Carbon Dioxide 22 Anion Gap 13 BUN 33 H Creatinine 0.9 Est GFR ( Amer) > 60 Est GFR (Non-Af Amer) > 60 POC Glucose (mg/dL) Random Glucose 259 H Calcium 7.0 L Phosphorus 2.4 L Magnesium 1.8 Total Bilirubin 6.1 H AST 35 ALT 30 Alkaline Phosphatase 118 Total Protein 4.5 L Albumin 2.0 L Globulin 2.5 Albumin/Globulin Ratio 0.8 L 03/14/18 11:27 WBC RBC Hgb Hct MCV MCH MCHC RDW Plt Count MPV Neut % (Auto) Lymph % (Auto) Johnston % (Auto) Eos % (Auto) Baso % (Auto) Neut # (Auto) Lymph # (Auto) Johnston # (Auto) Eos # (Auto) Baso # (Auto) APTT Puncture Site pCO2 pO2 HCO3 ABG pH ABG Total CO2 ABG O2 Saturation ABG Base Excess ABG Hemoglobin ABG Carboxyhemoglobin POC ABG HHb (Measured) ABG Methemoglobin Michele Test A-a O2 Difference Respiratory Index Hgb O2 Saturation Vent Mode Mechanical Rate FiO2 Tidal Volume PEEP Sodium Potassium Chloride Carbon Dioxide Anion Gap BUN Creatinine Est GFR ( Amer) Est GFR (Non-Af Amer) POC Glucose (mg/dL) 295 H Random Glucose Calcium Phosphorus Magnesium Total Bilirubin AST ALT Alkaline Phosphatase Total Protein Albumin Globulin Albumin/Globulin Ratio Critical Care Progress Note - Nutrition Nutrition: Nutrition Category Date Time Status NPO Diet [DIET] Diets 03/06/18 Breakfast Active Attending/Attestation - Attestation I have personally seen and examined this patient.: Yes I have fully participated in the care of the patient.: Yes I have reviewed all pertinent clinical information: Yes Notes (Text): 03/14/18 16:00 I have seen and examined the patient. Medical records, lab studies, and imaging were reviewed by me and a management plan was formulated on multidisciplinary rounds with resident Dr. Morse. I agree with their documented assessment and plan. Patient has significant bowel ischemia with little hope of recovery. She is going into oliguric renal failure. Her blood pressure has currently stabilized. Her prognosis is grave. Spoke with son about goals of care, he said he will talk to his family. Critical Care Time 35 minutes. Multi-disciplinary rounds were performed with house staff, nursing, speech therapy, respiratory therapy, pharmacy and nutrition with integrated input from the primary team/attending and other consulting services. The documented time is cumulative and includes review of patient data/exams/labs/chart review and examination of the patient on rounds and throughout the day; time is exclusive of any procedures or teaching time.
--- NOTE | 2018-03-14 08:43 | RAD ---
Chest x-ray single frontal view HISTORY: Intubated. COMPARISON: 03/13/2018 FINDINGS: Lines and tubes in stable position. Prominent opacifications seen throughout both lungs most predominant within the left mid to lower lung zone and right lung base. Moderate left and small right pleural effusion. Cardiomegaly. Atherosclerotic calcification at the aortic knob. Degenerative changes in the spine and shoulders. Impression: Lines and tubes in stable position. Prominent opacifications seen throughout both lungs most predominant within the left mid to lower lung zone and right lung base. Moderate left and small right pleural effusion. Cardiomegaly. Atherosclerotic calcification at the aortic knob.
--- NOTE | 2018-03-14 09:26 | CP.PCM.PN ---
Subjective - Date & Time of Evaluation Date of Evaluation: 03/14/18 Time of Evaluation: 07:00 - Subjective Subjective: Surgery progress note for Dr. Freitas Pt seen and examined this AM. Pt had a low fever this AM of 100.2, but is off pressors, on CPAP/PSV ventilation. Pt still sedated but winces on abdominal exam Objective - Vital Signs/Intake and Output Vital Signs (last 24 hours): Temp Pulse Resp BP Pulse Ox 100.7 F H 110 H 20 130/41 L 97 03/14/18 04:54 03/14/18 07:07 03/14/18 07:07 03/14/18 07:36 03/14/18 07:07 Intake and Output: 03/14/18 03/14/18 06:59 18:59 Intake Total 1920.5 93.4 Output Total 1101 Balance 819.5 93.4 - Medications Medications: Current Medications Albumin Human (Albumin Human 25% (12.5 Gm/50 Ml)) 12.5 gm IV Q2 ARPIT Stop: 03/14/18 18:01 Dextrose (Dextrose 50% Inj) 0 ml IV STAT PRN; Protocol PRN Reason: Hypoglycemia Protocol Last Admin: 03/11/18 00:13 Dose: 50 ml Dextrose (Glutose 15) 0 gm PO ONCE PRN; Protocol PRN Reason: Hypoglycemia Protocol Glucagon (Glucagen Diagnostic Kit) 0 mg IM STAT PRN; Protocol PRN Reason: Hypoglycemia Protocol Hydromorphone HCl (Dilaudid) 0.25 mg IVP Q4H PRN PRN Reason: Pain, severe (8-10) Last Admin: 03/13/18 12:58 Dose: 0.25 mg Norepinephrine Bitartrate 4 mg (/ Sodium Chloride) 250 mls @ 15 mls/hr IV .[id number] PRN; Protocol PRN Reason: TITRATE PER MD ORDER Last Titration: 03/12/18 19:30 Dose: 0 mcg/min, 0 mls/hr Propofol (Diprivan) 1,000 mg in 100 mls @ 10.733 mls/hr IV .Q9H20M PRN; Prot ocol PRN Reason: TITRATE PER MD ORDER Last Titration: 03/13/18 11:10 Dose: 0 mcg/kg/min, 0 mls/hr Fentanyl Citrate 2,500 mcg/ (Sodium Chloride) 250 mls @ 28.62 mls/hr IV .Q8H45M ARPIT; Protocol Last Admin: 03/14/18 05:44 Dose: 3 mcg/kg/hr, 28.62 mls/hr Heparin Sodium/Sodium Chloride (Heparin 90120 Units/250ml 1/2 Normal Saline) 25,000 units in 250 mls @ 9.54 mls/hr IV .Q24H PRN; Protocol PRN Reason: ADJUST RATE PER PROTOCOL Last Admin: 03/13/18 19:17 Dose: 12.13 units/kg/hr, 11.572 mls/hr Meropenem 500 mg/ Sodium (Chloride) 100 mls @ 100 mls/hr IVPB Q8H ARPIT; Protocol Last Admin: 03/14/18 00:49 Dose: 100 mls/hr Furosemide 100 mg/ Sodium (Chloride) 100 mls @ 10 mls/hr IV .Q10H ARPIT Last Admin: 03/14/18 07:36 Dose: 10 mls/hr Amino Acids/Electrolytes/Dextrose (Clinimix 5/20 % "E" (1000 Ml)) 1,000 mls @ 42 mls/hr IV .[id number] ARPIT Stop: 03/14/18 17:48 Last Admin: 03/13/18 17:07 Dose: 42 mls/hr Metronidazole (Flagyl) 500 mg in 100 mls @ 100 mls/hr IVPB Q8H APRIT; Protocol Last Admin: 03/14/18 06:48 Dose: 100 mls/hr Potassium Chloride (Potassium Chloride 20 Meq/100 Ml) 20 meq in 100 mls @ 50 mls/hr IVPB ONCE ONE Stop: 03/14/18 10:59 Insulin Aspart (Novolog) 0 unit SC Q6H ARPIT; Protocol Last Admin: 03/14/18 05:44 Dose: 3 unit Pantoprazole Sodium (Protonix Inj) 40 mg IVP Q12H ARPIT Last Admin: 03/13/18 21:58 Dose: 40 mg Vitamin A (Vitamin A & D Oint Ud Foilpak) 0.5 ea TOP Q4 PRN PRN Reason: Lip dryness Last Admin: 03/13/18 11:26 Dose: 0.5 ea - Labs Labs: 03/14/18 06:12 03/14/18 06:12 PT 15.7 SECONDS (9.7-12.2) H 03/11/18 04:15 INR 1.4 03/11/18 04:15 APTT 51 SECONDS (21-34) H 03/14/18 06:12 - Constitutional Appears: Toxic, In Acute Distress - Head Exam Head Exam: ATRAUMATIC, NORMOCEPHALIC - Eye Exam Eye Exam: Normal appearance. absent: Conjunctival injection, Scleral icterus - ENT Exam ENT Exam: Mucous Membranes Moist, Normal Oropharynx - Respiratory Exam Respiratory Exam: NORMAL BREATHING PATTERN. absent: Accessory Muscle Use, Respiratory Distress Additional comments: on CPAP mechanical ventilation - Cardiovascular Exam Cardiovascular Exam: Tachycardia, REGULAR RHYTHM - GI/Abdominal Exam GI & Abdominal Exam: Distended, Soft, Tenderness Additional comments: midline incision covered with an ostomy device secreting seropurulent fluid - Extremities Exam Extremities Exam: Pedal Edema. absent: Calf Tenderness - Neurological Exam Neurological Exam: Altered - Psychiatric Exam Additional comments: sedated - Skin Skin Exam: Normal Color, Warm Additional comments: diffuse anasarca--improving Assessment and Plan - Assessment and Plan (Free Text) Assessment: 82 F with mesenteric ischemia s/p 2 exploratory laparotomies with excision of small bowel, left in discontinuity Plan: Continue current medical management Continue strict NPO with NGT on continuous suction Continue heparin drip Continued to monitor urine output Continue antibiotics No further surgical interventions planned at this time--will continue to follow closely but d/t extensive disease outlook is bleak Discussed with Dr. Fortino Thompson, PGY2
[2018-03-14] MEDS: Albumin Human 25% (12.5 gm/50 ml) IV SCH ×5 (09:43→18:00)
[2018-03-14] MEDS: Vitamins A & D Oint UD Foilpak TOP PRN (10:51)
--- NOTE | 2018-03-14 15:23 | CP.PCM.PN ---
Subjective - Date & Time of Evaluation Date of Evaluation: 03/14/18 Time of Evaluation: 11:40 - Subjective Subjective: clinically same Objective - Vital Signs/Intake and Output Vital Signs (last 24 hours): Temp Pulse Resp BP Pulse Ox 100.7 F H 110 H 20 130/41 L 97 03/14/18 04:54 03/14/18 07:07 03/14/18 07:07 03/14/18 07:36 03/14/18 07:07 Intake and Output: 03/14/18 03/14/18 06:59 18:59 Intake Total 1920.5 93.4 Output Total 1101 Balance 819.5 93.4 - Medications Medications: Current Medications Albumin Human (Albumin Human 25% (12.5 Gm/50 Ml)) 12.5 gm IV Q2 ARPIT Stop: 03/14/18 18:01 Last Admin: 03/14/18 13:59 Dose: 12.5 gm Dextrose (Dextrose 50% Inj) 0 ml IV STAT PRN; Protocol PRN Reason: Hypoglycemia Protocol Last Admin: 03/11/18 00:13 Dose: 50 ml Dextrose (Glutose 15) 0 gm PO ONCE PRN; Protocol PRN Reason: Hypoglycemia Protocol Glucagon (Glucagen Diagnostic Kit) 0 mg IM STAT PRN; Protocol PRN Reason: Hypoglycemia Protocol Hydromorphone HCl (Dilaudid) 0.25 mg IVP Q4H PRN PRN Reason: Pain, severe (8-10) Last Admin: 03/13/18 12:58 Dose: 0.25 mg Norepinephrine Bitartrate 4 mg (/ Sodium Chloride) 250 mls @ 15 mls/hr IV .[id number] PRN; Protocol PRN Reason: TITRATE PER MD ORDER Last Titration: 03/12/18 19:30 Dose: 0 mcg/min, 0 mls/hr Fentanyl Citrate 2,500 mcg/ (Sodium Chloride) 250 mls @ 28.62 mls/hr IV .Q8H45M ARPIT; Protocol Last Titration: 03/14/18 10:47 Dose: 2 mcg/kg/hr, 19.08 mls/hr Heparin Sodium/Sodium Chloride (Heparin 75860 Units/250ml 1/2 Normal Saline) 25,000 units in 250 mls @ 9.54 mls/hr IV .Q24H PRN; Protocol PRN Reason: ADJUST RATE PER PROTOCOL Last Admin: 03/13/18 19:17 Dose: 12.13 units/kg/hr, 11.572 mls/hr Meropenem 500 mg/ Sodium (Chloride) 100 mls @ 100 mls/hr IVPB Q8H ARPIT; Protocol Last Admin: 03/14/18 09:41 Dose: 100 mls/hr Furosemide 100 mg/ Sodium (Chloride) 100 mls @ 10 mls/hr IV .Q10H ARPIT Last Admin: 03/14/18 07:36 Dose: 10 mls/hr Amino Acids/Electrolytes/Dextrose (Clinimix 5/20 % "E" (1000 Ml)) 1,000 mls @ 42 mls/hr IV .[id number] ARPIT Stop: 03/14/18 17:48 Last Admin: 03/13/18 17:07 Dose: 42 mls/hr Metronidazole (Flagyl) 500 mg in 100 mls @ 100 mls/hr IVPB Q8H ARPIT; Protocol Last Admin: 03/14/18 06:48 Dose: 100 mls/hr Chromium/Copper/Manganese/Zinc 1 ml/ Multivitamins/Vitamin C 10 ml/ Insulin Human Regular 10 unit/ Amino Acids/Electrolytes/Dextrose 1,011.1 mls @ 42 mls/hr IV .Q24H ARPIT Fat Emulsion Intravenous (Intralipid 20%) 500 mls @ 42 mls/hr IV ONCE ONE Stop: 03/15/18 05:54 Insulin Aspart (Novolog) 0 unit SC Q6H ARPIT; Protocol Last Admin: 03/14/18 13:31 Dose: 3 unit Pantoprazole Sodium (Protonix Inj) 40 mg IVP Q12H ARPIT Last Admin: 03/14/18 10:50 Dose: 40 mg Vitamin A (Vitamin A & D Oint Ud Foilpak) 0.5 ea TOP Q4 PRN PRN Reason: Lip dryness Last Admin: 03/14/18 10:51 Dose: 0.5 ea - Labs Labs: 03/14/18 06:12 03/14/18 06:12 PT 15.7 SECONDS (9.7-12.2) H 03/11/18 04:15 INR 1.4 03/11/18 04:15 APTT 51 SECONDS (21-34) H 03/14/18 06:12 - Constitutional Appears: Well - Head Exam Head Exam: ATRAUMATIC, NORMAL INSPECTION, NORMOCEPHALIC - Eye Exam Eye Exam: EOMI, Normal appearance, PERRL Pupil Exam: NORMAL ACCOMODATION, PERRL - ENT Exam ENT Exam: Mucous Membranes Moist, Normal Exam - Neck Exam Neck Exam: Full ROM, Normal Inspection. absent: Lymphadenopathy - Respiratory Exam Respiratory Exam: Decreased Breath Sounds - Cardiovascular Exam Cardiovascular Exam: REGULAR RHYTHM, +S1, +S2 - GI/Abdominal Exam GI & Abdominal Exam: Soft, Diminished Bowel Sounds - Rectal Exam Rectal Exam: Deferred
[2018-03-14] MEDS ORDERED: Fat Emulsion 20% IV 500 ML IV ONE (18:00)
[2018-03-14] MEDS: TPN IV SCH (18:02)
[2018-03-14] MEDS: Heparin25000 units/250ml 1/2NS 25,000 UNITS/250 ML BAG IV PRN (18:47)
[2018-03-14] MEDS: HYDROmorphone 0.5 mg/0.5 ml ISec IVP PRN (20:15)
--- NOTE | 2018-03-14 23:36 | CP.PCM.PN ---
Subjective - Date & Time of Evaluation Date of Evaluation: 03/14/18 Time of Evaluation: 13:00 - Subjective Subjective: Vented, family at bedside. Objective - Vital Signs/Intake and Output Vital Signs (last 24 hours): Temp Pulse Resp BP Pulse Ox 99.6 F 106 H 14 112/46 L 97 03/14/18 16:00 03/14/18 19:08 03/14/18 19:08 03/14/18 19:08 03/14/18 19:08 Intake and Output: 03/14/18 03/15/18 18:59 06:59 Intake Total 2111.9 Output Total 1215 Balance 896.9 - Medications Medications: Current Medications Dextrose (Dextrose 50% Inj) 0 ml IV STAT PRN; Protocol PRN Reason: Hypoglycemia Protocol Last Admin: 03/11/18 00:13 Dose: 50 ml Dextrose (Glutose 15) 0 gm PO ONCE PRN; Protocol PRN Reason: Hypoglycemia Protocol Glucagon (Glucagen Diagnostic Kit) 0 mg IM STAT PRN; Protocol PRN Reason: Hypoglycemia Protocol Hydromorphone HCl (Dilaudid) 0.25 mg IVP Q4H PRN PRN Reason: Pain, severe (8-10) Last Admin: 03/14/18 20:15 Dose: 0.25 mg Norepinephrine Bitartrate 4 mg (/ Sodium Chloride) 250 mls @ 15 mls/hr IV .[id number] PRN; Protocol PRN Reason: TITRATE PER MD ORDER Last Titration: 03/12/18 19:30 Dose: 0 mcg/min, 0 mls/hr Fentanyl Citrate 2,500 mcg/ (Sodium Chloride) 250 mls @ 28.62 mls/hr IV .[id number] [facility]; Protocol Last Admin: 03/14/18 17:57 Dose: 2 mcg/kg/hr, 19.08 mls/hr Heparin Sodium/Sodium Chloride (Heparin 37187 Units/250ml 1/2 Normal Saline) 25,000 units in 250 mls @ 9.54 mls/hr IV .Q24H PRN; Protocol PRN Reason: ADJUST RATE PER PROTOCOL Last Admin: 03/14/18 18:47 Dose: 12.13 units/kg/hr, 11.572 mls/hr Meropenem 500 mg/ Sodium (Chloride) 100 mls @ 100 mls/hr IVPB Q8H [facility]; Protocol Last Admin: 03/14/18 18:00 Dose: 100 mls/hr Furosemide 100 mg/ Sodium (Chloride) 100 mls @ 10 mls/hr IV .Q10H [facility] Last Admin: 03/14/18 18:02 Dose: 10 mls/hr Metronidazole (Flagyl) 500 mg in 100 mls @ 100 mls/hr IVPB Q8H [facility]; Protocol Last Admin: 03/14/18 16:33 Dose: 100 mls/hr Chromium/Copper/Manganese/Zinc 1 ml/ Multivitamins/Vitamin C 10 ml/ Insulin Isa n Regular 10 unit/ Amino Acids/Electrolytes/Dextrose 1,011.1 mls @ 42 mls/hr IV .Q24H [facility] Last Admin: 03/14/18 18:02 Dose: 42 mls/hr Fat Emulsion Intravenous (Intralipid 20%) 500 mls @ 42 mls/hr IV ONCE ONE Stop: 03/15/18 05:54 Last Admin: 03/14/18 18:03 Dose: 42 mls/hr Insulin Aspart (Novolog) 0 unit SC Q6H [facility]; Protocol Last Admin: 03/14/18 18:04 Dose: 3 unit Pantoprazole Sodium (Protonix Inj) 40 mg IVP Q12H [facility] Last Admin: 03/14/18 21:43 Dose: 40 mg Vitamin A (Vitamin A & D Oint Ud Foilpak) 0.5 ea TOP Q4 PRN PRN Reason: Lip dryness Last Admin: 03/14/18 10:51 Dose: 0.5 ea - Labs Labs: 03/14/18 06:12 03/14/18 06:12 PT 15.7 SECONDS (9.7-12.2) H 03/11/18 04:15 INR 1.4 03/11/18 04:15 APTT 51 SECONDS (21-34) H 03/14/18 06:12 - Head Exam Head Exam: ATRAUMATIC - Eye Exam Eye Exam: Normal appearance - ENT Exam ENT Exam: Mucous Membranes Dry - Respiratory Exam Respiratory Exam: NORMAL BREATHING PATTERN - Cardiovascular Exam Cardiovascular Exam: +S1, +S2 - GI/Abdominal Exam GI & Abdominal Exam: Normal Bowel Sounds Assessment and Plan (1) Anemia Assessment & Plan: anemia of chronic disease. 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
[2018-03-15] MEDS: HYDROmorphone 0.5 mg/0.5 ml ISec IVP PRN ×2 (00:20→04:53)
[2018-03-15] MEDS: Meropenem 500 MG in Sodium Chloride 0.9% 100 ML IVPB SCH ×3 (01:06→17:11)
[2018-03-15] MEDS: Furosemide 100 MG in Sodium Chloride 0.9% 90 ML IV SCH ×3 (01:07→15:37)
[2018-03-15] MEDS: (Novolog) Insulin Aspart, Recombinant 100 u/ml 10 ml vial SC SCH ×4 (01:09→18:17)
[2018-03-15 05:47] LABS: ABG ALLEN TEST POS; ARTERIAL BLOOD GAS HCO3 24.4 mmol/L (21-28); ARTERIAL BLOOD GAS O2 SAT 99.8 % (95-98); ARTERIAL BLOOD GAS PCO2 36 mm/Hg (35-45); ARTERIAL BLOOD GAS PH 7.42 (7.35-7.45); ARTERIAL BLOOD GAS PO2 89 mm/Hg (80-100); ARTERIAL BLOOD GAS TCO2 24.5 mmol/L (22-28)
[2018-03-15 06:31] LABS: BASO # 0.1 K/uL (0.0-0.2); BASO % 0.8 % (0.0-2.0); EOS # 0.3 K/uL (0.0-0.7); EOS % 2.6 % (0.0-4.0); HEMOGLOBIN 9.1 g/dL (11.0-16.0); LYMPH # 1.7 K/uL (1.0-4.3); LYMPH % 15.6 % (20.0-40.0); MEAN CELL VOLUME 94.1 fL (81.0-99.0); MEAN CORPUSCULAR HEMOGLOBIN 32.5 pg (27.0-31.0); MEAN CORPUSCULAR HGB CONC 34.5 g/dL (33.0-37.0); MEAN PLATELET VOLUME 12.2 fL (7.2-11.7); MONO # 0.2 K/uL (0.0-0.8); MONO % 1.8 % (0.0-10.0); NEUT # 8.4 K/uL (1.8-7.0); NEUT % 79.2 % (50.0-75.0); NRBC % 0.1 % (0.0-2.0); RBC 2.81 Mil/uL (3.80-5.20); RED CELL DISTRIBUTION WIDTH 16.6 % (11.5-14.5); WHITE BLOOD COUNT 10.6 K/uL (4.8-10.8)
[2018-03-15 06:45] LABS: ALB/GLOB RATIO 0.8 (1.0-2.1); ALBUMIN 2.1 g/dL (3.5-5.0); ALT/SGPT 29 U/L (9-52); AST/SGOT 33 U/L (14-36); BLOOD UREA NITROGEN 33 mg/dL (7-17); GFR NON-AFRICAN AMERICAN > 60
[2018-03-15] MEDS: metroNIDAZOLE IV 500 mg/100 ml 500 MG/100 ML BAG IVPB SCH ×3 (07:14→23:26)
[2018-03-15] MEDS ORDERED: (Novolog) Insulin Aspart, Recombinant 100 u/ml 10 ml vial SC SCH (07:48)
[2018-03-15] MEDS: Magnesium Sulfate 1 gm in D5W 1 GM/100 ML BAG IVPB SCH ×2 (08:30→09:00)
--- NOTE | 2018-03-15 09:18 | CP.PCM.PN ---
Subjective - Date & Time of Evaluation Date of Evaluation: 03/15/18 Time of Evaluation: 06:40 - Subjective Subjective: Surgery progress note for Dr. Freitas Pt seen and examined this AM. Pt had no adverse events overnight. Her urine output remains low, BP remains stable off pressors, patient was put back on PRVC overnight. Objective - Vital Signs/Intake and Output Vital Signs (last 24 hours): Temp Pulse Resp BP Pulse Ox 99.8 F H 98 H 16 117/44 L 99 03/15/18 04:00 03/15/18 08:07 03/15/18 08:07 03/15/18 08:07 03/15/18 08:07 Intake and Output: 03/15/18 03/15/18 06:59 18:59 Intake Total 1815.4 250 Output Total 1355 Balance 460.4 250 - Medications Medications: Current Medications Dextrose (Dextrose 50% Inj) 0 ml IV STAT PRN; Protocol PRN Reason: Hypoglycemia Protocol Last Admin: 03/11/18 00:13 Dose: 50 ml Dextrose (Glutose 15) 0 gm PO ONCE PRN; Protocol PRN Reason: Hypoglycemia Protocol Glucagon (Glucagen Diagnostic Kit) 0 mg IM STAT PRN; Protocol PRN Reason: Hypoglycemia Protocol Hydromorphone HCl (Dilaudid) 0.25 mg IVP Q4H PRN PRN Reason: Pain, severe (8-10) Last Admin: 03/15/18 04:53 Dose: 0.25 mg Norepinephrine Bitartrate 4 mg (/ Sodium Chloride) 250 mls @ 15 mls/hr IV .[id number] PRN; Protocol PRN Reason: TITRATE PER MD ORDER Last Titration: 03/12/18 19:30 Dose: 0 mcg/min, 0 mls/hr Fentanyl Citrate 2,500 mcg/ (Sodium Chloride) 250 mls @ 28.62 mls/hr IV .Q8H45M [facility]; Protocol Last Admin: 03/15/18 07:34 Dose: 2 mcg/kg/hr, 19.08 mls/hr Heparin Sodium/Sodium Chloride (Heparin 50690 Units/250ml 1/2 Normal Saline) 25,000 units in 250 mls @ 9.54 mls/hr IV .Q24H PRN; Protocol PRN Reason: ADJUST RATE PER PROTOCOL Last Admin: 03/14/18 18:47 Dose: 12.13 units/kg/hr, 11.572 mls/hr Meropenem 500 mg/ Sodium (Chloride) 100 mls @ 100 mls/hr IVPB Q8H [facility]; Protocol Last Admin: 03/15/18 01:06 Dose: 100 mls/hr Furosemide 100 mg/ Sodium (Chloride) 100 mls @ 10 mls/hr IV .Q10H [facility] Last Admin: 03/15/18 04:54 Dose: Not Given Metronidazole (Flagyl) 500 mg in 100 mls @ 100 mls/hr IVPB Q8H [facility]; Protocol Last Admin: 03/15/18 07:14 Dose: 100 mls/hr Chromium/Copper/Manganese/Zinc 1 ml/ Multivitamins/Vitamin C 10 ml/ Insulin Human Regular 10 unit/ Amino Acids/Electrolytes/Dextrose 1,011.1 mls @ 42 mls/hr IV .Q24H [facility] Last Admin: 03/14/18 18:02 Dose: 42 mls/hr Potassium Chloride (Potassium Chloride 20 Meq/100 Ml) 20 meq in 100 mls @ 50 m ls/hr IVPB Q2 [facility] Stop: 03/18/18 08:01 Insulin Aspart (Novolog) 0 unit SC Q6H [facility]; Protocol Pantoprazole Sodium (Protonix Inj) 40 mg IVP Q12H [facility] Last Admin: 03/14/18 21:43 Dose: 40 mg Vitamin A (Vitamin A & D Oint Ud Foilpak) 0.5 ea TOP Q4 PRN PRN Reason: Lip dryness Last Admin: 03/14/18 10:51 Dose: 0.5 ea - Labs Labs: 03/15/18 06:19 03/15/18 06:19 PT 15.7 SECONDS (9.7-12.2) H 03/11/18 04:15 INR 1.4 03/11/18 04:15 APTT 75 SECONDS (21-34) H D 03/15/18 06:19 - Constitutional Appears: Well, Non-toxic, No Acute Distress - Head Exam Head Exam: ATRAUMATIC, NORMOCEPHALIC - Eye Exam Eye Exam: Normal appearance. absent: Conjunctival injection, Scleral icterus - ENT Exam ENT Exam: Mucous Membranes Moist, Normal Oropharynx - Respiratory Exam Respiratory Exam: NORMAL BREATHING PATTERN. absent: Accessory Muscle Use, Respiratory Distress - Cardiovascular Exam Cardiovascular Exam: RRR - GI/Abdominal Exam GI & Abdominal Exam: Distended, Soft, Tenderness (diffuse tenderness) Additional comments: incision covered in ostomy device and draining seropurulent fluid - Extremities Exam Extremities Exam: Pedal Edema. absent: Calf Tenderness - Neurological Exam Neurological Exam: Altered - Psychiatric Exam Additional comments: sedated - Skin Additional comments: anasarca, warm, normal color Assessment and Plan - Assessment and Plan (Free Text) Assessment: 82F with mesenteric ischemia, necrotic bowel s/p 2 ex laps with resection of small bowel, left in discontinuity Plan: Continue medical management per primary and ICU team Recommend holding lasix and re-hydrating patient Continue heparin drip, antibiotics Continue to monitor output Trend labs, supplement potassium, phosphorus, and magnesium aggressively Recommend angiogram by IR on Saturday to assess if there is any improvement in vascular supply and intervention possible Further surgical planning pending vasculature evaluation Discussed with Dr. Fortino Thompson, PGY2
[2018-03-15] MEDS ORDERED: Potassium Phosphate 30 MMOLE in Sodium Chloride 0.9% 250 ML IV ONE (09:41)
--- NOTE | 2018-03-15 10:00 | RAD ---
Chest x-ray single frontal view HISTORY: Intubated. COMPARISON: 03/06/2018 FINDINGS: Endotracheal tube extending into the midthoracic trachea. NG tube extending into the stomach. Right central venous catheter extending into the SVC. Moderate to severe venous congestion with prominent bibasilar airspace opacities and bilateral pleural effusions. Enlarged ectatic aorta. Atherosclerotic calcification and plaque noted within the aorta. Cardiomegaly. Degenerative changes in the spine and shoulders. Impression: Endotracheal tube extending into the midthoracic trachea. NG tube extending into the stomach. Right central venous catheter extending into the SVC. Moderate to severe venous congestion with prominent bibasilar airspace opacities and bilateral pleural effusions. Enlarged ectatic aorta. Atherosclerotic calcification and plaque noted within the aorta. Cardiomegaly.
--- NOTE | 2018-03-15 15:27 | CP.PCM.PN ---
Subjective - Date & Time of Evaluation Date of Evaluation: 03/15/18 Time of Evaluation: 11:30 - Subjective Subjective: clinically same Objective - Vital Signs/Intake and Output Vital Signs (last 24 hours): Temp Pulse Resp BP Pulse Ox 98.8 F 107 H 17 131/48 L 98 03/15/18 12:00 03/15/18 14:00 03/15/18 14:00 03/15/18 14:00 03/15/18 14:00 Intake and Output: 03/15/18 03/15/18 06:59 18:59 Intake Total 1815.4 1229.2 Output Total 1355 360 Balance 460.4 869.2 - Medications Medications: Current Medications Dextrose (Dextrose 50% Inj) 0 ml IV STAT PRN; Protocol PRN Reason: Hypoglycemia Protocol Last Admin: 03/11/18 00:13 Dose: 50 ml Dextrose (Glutose 15) 0 gm PO ONCE PRN; Protocol PRN Reason: Hypoglycemia Protocol Glucagon (Glucagen Diagnostic Kit) 0 mg IM STAT PRN; Protocol PRN Reason: Hypoglycemia Protocol Hydromorphone HCl (Dilaudid) 0.25 mg IVP Q4H PRN PRN Reason: Pain, severe (8-10) Last Admin: 03/15/18 04:53 Dose: 0.25 mg Norepinephrine Bitartrate 4 mg (/ Sodium Chloride) 250 mls @ 15 mls/hr IV .[id number] PRN; Protocol PRN Reason: TITRATE PER MD ORDER Last Titration: 03/12/18 19:30 Dose: 0 mcg/min, 0 mls/hr Fentanyl Citrate 2,500 mcg/ (Sodium Chloride) 250 mls @ 28.62 mls/hr IV .Q8H45M [facility]; Protocol Last Admin: 03/15/18 07:34 Dose: 2 mcg/kg/hr, 19.08 mls/hr Heparin Sodium/Sodium Chloride (Heparin 89093 Units/250ml 1/2 Normal Saline) 25,000 units in 250 mls @ 9.54 mls/hr IV .Q24H PRN; Protocol PRN Reason: ADJUST RATE PER PROTOCOL Last Admin: 03/14/18 18:47 Dose: 12.13 units/kg/hr, 11.572 mls/hr Meropenem 500 mg/ Sodium (Chloride) 100 mls @ 100 mls/hr IVPB Q8H [facility]; Protocol Last Admin: 03/15/18 09:10 Dose: 100 mls/hr Furosemide 100 mg/ Sodium (Chloride) 100 mls @ 10 mls/hr IV .Q10H [facility] Last Admin: 03/15/18 04:54 Dose: Not Given Metronidazole (Flagyl) 500 mg in 100 mls @ 100 mls/hr IVPB Q8H [facility]; Protocol Last Admin: 03/15/18 07:14 Dose: 100 mls/hr Chromium/Copper/Manganese/Zinc 1 ml/ Multivitamins/Vitamin C 10 ml/ Insulin Hu man Regular 10 unit/ Amino Acids/Electrolytes/Dextrose 1,011.1 mls @ 42 mls/hr IV .Q24H [facility] Stop: 03/15/18 18:01 Last Admin: 03/14/18 18:02 Dose: 42 mls/hr Sodium Chloride 35 meq/Potassium Chloride 30 meq/Potassium Phosphate 30 mmole/Magnesium Sulfate 5 meq/Calcium Gluconate 4.5 meq/Insulin Human Regular 10 unit/Multivitamins/Vitamin C 10 ml / Chromium/Copper/Manganese/Zinc 1 ml/ Amino Acids 1,055.7589 mls @ 80 mls/hr IV .[id number] ONE Stop: 03/16/18 07:11 Sodium Chloride 35 meq/Potassium Chloride 30 meq/Potassium Phosphate 30 mmole/Magnesium Sulfate 5 meq/Calcium Gluconate 4.5 meq/Insulin Human Regular 10 unit/Amino Acids 1,044.7589 mls @ 80 mls/hr IV .Q13H4M [facility] Stop: 03/16/18 17:59 Insulin Aspart (Novolog) 0 unit SC Q6 [facility]; Protocol Last Admin: 03/15/18 12:35 Dose: 4 units Pantoprazole Sodium (Protonix Inj) 40 mg IVP Q12H [facility] Last Admin: 03/15/18 09:34 Dose: 40 mg Vitamin A (Vitamin A & D Oint Ud Foilpak) 0.5 ea TOP Q4 PRN PRN Reason: Lip dryness Last Admin: 03/14/18 10:51 Dose: 0.5 ea - Labs Labs: 03/15/18 06:19 03/15/18 06:19 PT 15.7 SECONDS (9.7-12.2) H 03/11/18 04:15 INR 1.4 03/11/18 04:15 APTT 75 SECONDS (21-34) H D 03/15/18 06:19 - Constitutional Appears: Well - Head Exam Head Exam: ATRAUMATIC, NORMAL INSPECTION, NORMOCEPHALIC - Eye Exam Eye Exam: EOMI, Normal appearance, PERRL Pupil Exam: NORMAL ACCOMODATION, PERRL - ENT Exam ENT Exam: Mucous Membranes Moist, Normal Exam - Neck Exam Neck Exam: Full ROM, Normal Inspection. absent: Lymphadenopathy - Respiratory Exam Respiratory Exam: Decreased Breath Sounds - Cardiovascular Exam Cardiovascular Exam: REGULAR RHYTHM, +S1, +S2 - GI/Abdominal Exam GI & Abdominal Exam: Soft, Diminished Bowel Sounds - Rectal Exam Rectal Exam: Deferred
[2018-03-15] MEDS: Heparin25000 units/250ml 1/2NS 25,000 UNITS/250 ML BAG IV PRN (15:35)
--- NOTE | 2018-03-15 16:40 | CP.CCUPN ---
CCU Subjective - Physician Review Events Since Last Encounter (Free Text): 03/15/18 16:11 alert, responsive. CCU Objective - Vital Signs / Intake & Output Vital Signs (Last 4 hours): Vital Signs Pulse Resp BP Pulse Ox 03/15/18 14:00 107 H 17 131/48 L 98 03/15/18 13:07 102 H 17 131/48 L 98 03/15/18 13:00 104 H 16 98 Intake and Output (Last 8hrs): Intake & Output 03/15/18 03/15/18 03/15/18 06:59 14:59 22:59 Intake Total 1263.4 1229.2 250 Output Total 1145 360 Balance 118.4 869.2 250 Weight 233 lb 0.458 oz Intake: IV 250 250 Intake, IV Amount 1263.4 979.2 Left Wrist 94.4 94.4 Medial Port 294 Prox Port 300 300 Right Distal IJ 80 80 Right Distal Port 336 336 Internal Jugular Right Medial Port 159.0 168.8 Internal Jugular Tube Feeding 0 0 Output: Drainage 800 0 LEFT JEJUNOSTOMY 0 0 Right Nare 400 abdominal wound drain 400 Urine 345 360 Urethral ([place]) 345 360 Stool 0 0 Emesis 0 0 - Physical Exam Head: Positive for: Atraumatic, Normocephalic Pupils: Positive for: PERRL Extroacular Muscles: Positive for: EOMI Nose (External): Positive for: Other (NGT) Respiratory/Chest: Positive for: Clear to Auscultation, Other (on vent, intubated) Cardiovascular: Positive for: Normal S1, S2. Negative for: Murmurs Abdomen: Positive for: Tenderness (oozing from abdominal surgical site.), Distention Upper Extremity: Positive for: Edema Lower Extremity: Positive for: Edema, Other (R TLC) Neurological: Positive for: Other (sedated) Skin: Positive for: Warm, Normal Color - Medications Active Medications: Active Medications Generic Name Dose Route Start Last Admin Trade Name Freq PRN Reason Stop Dose Admin Dextrose 0 ml 03/06/18 15:02 03/11/18 00:13 Dextrose 50% Inj IV 50 ml STAT PRN Administration Hypoglycemia Protocol Protocol Dextrose 0 gm 03/06/18 15:02 Glutose 15 PO ONCE PRN Hypoglycemia Protocol Protocol Glucagon 0 mg 03/06/18 15:02 Glucagen Diagnostic Kit IM STAT PRN Hypoglycemia Protocol Protocol Hydromorphone HCl 0.25 mg 03/10/18 20:35 03/15/18 04:53 Dilaudid IVP 0.25 mg Q4H PRN Administration Pain, severe (8-10) Norepinephrine Bitartrate 4 mg 250 mls @ 15 mls/hr 03/10/18 12:30 03/12/18 19:30 / Sodium Chloride IV 0 mcg/min .[id number] PRN 0 mls/hr TITRATE PER MD ORDER Titration Protocol 4 MCG/MIN Fentanyl Citrate 2,500 mcg/ 250 mls @ 28.62 mls/hr 03/10/18 23:30 03/15/18 07:34 Sodium Chloride IV 2 mcg/kg/hr .Q8H45M [facility] 19.08 mls/hr Administration Protocol 3 MCG/KG/HR Heparin Sodium/Sodium Chloride 25,000 units in 250 mls @ 9.54 mls/hr 03/10/18 23:20 03/15/18 15:35 Heparin 97504 Units/250ml 1/2 Normal Saline IV 12.13 units/kg/hr .Q24H PRN 11.572 mls/hr ADJUST RATE PER PROTOCOL Administration Protocol 10 UNITS/KG/HR Meropenem 500 mg/ Sodium 100 mls @ 100 mls/hr 03/12/18 17:00 03/15/18 09:10 Chloride IVPB 100 mls/hr Q8H [facility] Administration Protocol Metronidazole 500 mg in 100 mls @ 100 mls/hr 03/13/18 15:00 03/15/18 15:41 Flagyl IVPB 100 mls/hr Q8H [facility] Administration Protocol Chromium/Copper/Manganese/Zinc 1,011.1 mls @ 42 mls/hr 03/14/18 18:00 03/14/18 18:02 1 ml/ Multivitamins/Vitamin C IV 03/15/18 18:01 42 mls/hr 10 ml/ Insulin Human Regular .Q24H [facility] Administration 10 unit/ Amino Acids/ Electrolytes/Dextrose Sodium Chloride 35 meq/ 1,055.7589 mls @ 80 mls/hr 03/15/18 18:00 Potassium Chloride 30 meq/ IV 03/16/18 07:11 Potassium Phosphate 30 mmole/ .[id number] ONE Magnesium Sulfate 5 meq/ Calcium Gluconate 4.5 meq/ Insulin Human Regular 10 unit/ Multivitamins/Vitamin C 10 ml / Chromium/Copper/Manganese/ Zinc 1 ml/ Amino Acids Sodium Chloride 35 meq/ 1,044.7589 mls @ 80 mls/hr 03/16/18 07:00 Potassium Chloride 30 meq/ IV 03/16/18 17:59 Potassium Phosphate 30 mmole/ .Q13H4M [facility] Magnesium Sulfate 5 meq/ Calcium Gluconate 4.5 meq/ Insulin Human Regular 10 unit/ Amino Acids Insulin Aspart 0 unit 03/15/18 12:00 03/15/18 12:35 Novolog SC 4 units Q6 [facility] Administration Protocol Pantoprazole Sodium 40 mg 03/07/18 10:00 03/15/18 09:34 Protonix Inj IVP 40 mg Q12H [facility] Administration Vitamin A 0.5 ea 03/10/18 20:33 03/14/18 10:51 Vitamin A & D Oint Ud Foilpak TOP 0.5 ea Q4 PRN Administration Lip dryness - Patient Studies Lab Studies: Lab Studies 03/15/18 03/15/18 03/15/18 Range/Units 12:07 06:19 06:19 WBC (4.8-10.8) K/uL RBC (3.80-5.20) Mil/uL Hgb (11.0-16.0) g/dL Hct (34.0-47.0) % MCV (81.0-99.0) fL MCH (27.0-31.0) pg MCHC (33.0-37.0) g/dL RDW (11.5-14.5) % Plt Count (130-400) K/uL MPV (7.2-11.7) fL Neut % (Auto) (50.0-75.0) % Lymph % (Auto) (20.0-40.0) % Fountain % (Auto) (0.0-10.0) % Eos % (Auto) (0.0-4.0) % Baso % (Auto) (0.0-2.0) % Neut # (Auto) (1.8-7.0) K/uL Lymph # (Auto) (1.0-4.3) K/uL Fountain # (Auto) (0.0-0.8) K/uL Eos # (Auto) (0.0-0.7) K/uL Baso # (Auto) (0.0-0.2) K/uL APTT 75 H D (21-34) SECONDS Puncture Site pCO2 (35-45) mm/Hg pO2 (80-100) mm/Hg HCO3 (21-28) mmol/L ABG pH (7.35-7.45) ABG Total CO2 (22-28) mmol/L ABG O2 Saturation (95-98) % ABG Base Excess (-2.0-3.0) mmol/L Michele Test ABG Potassium (3.6-5.2) mmol/L A-a O2 Difference mm/Hg Respiratory Index Sodium 139 (132-148) mmol/l Chloride 107 (98-107) mmol/L Glucose (65-105) mg/dl Lactate (0.7-2.1) mmol/L Vent Mode Mechanical Rate FiO2 % Tidal Volume PEEP Potassium 2.9 L (3.6-5.2) mmol/L Carbon Dioxide 22 (22-30) mmol/L Anion Gap 13 (10-20) BUN 33 H (7-17) mg/dL Creatinine 0.9 (0.7-1.2) mg/dL Est GFR ( Amer) > 60 Est GFR (Non-Af Amer) > 60 POC Glucose (mg/dL) 205 H (65-110) mg/dL Random Glucose 224 H (65-105) mg/dL Calcium 7.0 L (8.6-10.4) mg/dl Phosphorus 2.2 L (2.5-4.5) mg/dL Magnesium 1.6 (1.6-2.3) mg/dL Total Bilirubin 5.6 H (0.2-1.3) mg/dL AST 33 (14-36) U/L ALT 29 (9-52) U/L Alkaline Phosphatase 119 (38-126) U/L Total Protein 4.6 L (6.3-8.3) g/dL Albumin 2.1 L (3.5-5.0) g/dL Globulin 2.5 (2.2-3.9) gm/dL Albumin/Globulin Ratio 0.8 L (1.0-2.1) Arterial Blood Potassium (3.6-5.2) mmol/L 03/15/18 03/15/18 03/15/18 Range/Units 06:19 05:40 04:48 WBC 10.6 (4.8-10.8) K/uL RBC 2.81 L (3.80-5.20) Mil/uL Hgb 9.1 L (11.0-16.0) g/dL Hct 26.5 L (34.0-47.0) % MCV 94.1 (81.0-99.0) fL MCH 32.5 H (27.0-31.0) pg MCHC 34.5 (33.0-37.0) g/dL RDW 16.6 H (11.5-14.5) % Plt Count 141 (130-400) K/uL MPV 12.2 H (7.2-11.7) fL Neut % (Auto) 79.2 H (50.0-75.0) % Lymph % (Auto) 15.6 L (20.0-40.0) % Fountain % (Auto) 1.8 (0.0-10.0) % Eos % (Auto) 2.6 (0.0-4.0) % Baso % (Auto) 0.8 (0.0-2.0) % Neut # (Auto) 8.4 H (1.8-7.0) K/uL Lymph # (Auto) 1.7 (1.0-4.3) K/uL Fountain # (Auto) 0.2 (0.0-0.8) K/uL Eos # (Auto) 0.3 (0.0-0.7) K/uL Baso # (Auto) 0.1 (0.0-0.2) K/uL APTT (21-34) SECONDS Puncture Site Rr pCO2 36 (35-45) mm/Hg pO2 89 (80-100) mm/Hg HCO3 24.4 (21-28) mmol/L ABG pH 7.42 (7.35-7.45) ABG Total CO2 24.5 (22-28) mmol/L ABG O2 Saturation 99.8 H (95-98) % ABG Base Excess -0.7 (-2.0-3.0) mmol/L Michele Test Pos ABG Potassium 2.8 L (3.6-5.2) mmol/L A-a O2 Difference 223.0 mm/Hg Respiratory Index 2.5 Sodium 141.0 (132-148) mmol/l Chloride 112.0 H (98-107) mmol/L Glucose 255 H (65-105) mg/dl Lactate 3.9 H (0.7-2.1) mmol/L Vent Mode Prvc Mechanical Rate 16 FiO2 50.0 % Tidal Volume 450 PEEP 5 Potassium (3.6-5.2) mmol/L Carbon Dioxide (22-30) mmol/L Anion Gap (10-20) BUN (7-17) mg/dL Creatinine (0.7-1.2) mg/dL Est GFR ( Amer) Est GFR (Non-Af Amer) POC Glucose (mg/dL) 204 H (65-110) mg/dL Random Glucose (65-105) mg/dL Calcium (8.6-10.4) mg/dl Phosphorus (2.5-4.5) mg/dL Magnesium (1.6-2.3) mg/dL Total Bilirubin (0.2-1.3) mg/dL AST (14-36) U/L ALT (9-52) U/L Alkaline Phosphatase (38-126) U/L Total Protein (6.3-8.3) g/dL Albumin (3.5-5.0) g/dL Globulin (2.2-3.9) gm/dL Albumin/Globulin Ratio (1.0-2.1) Arterial Blood Potassium 2.8 L (3.6-5.2) mmol/L 03/15/18 03/14/18 Range/Units 00:51 18:03 WBC (4.8-10.8) K/uL RBC (3.80-5.20) Mil/uL Hgb (11.0-16.0) g/dL Hct (34.0-47.0) % MCV (81.0-99.0) fL MCH (27.0-31.0) pg MCHC (33.0-37.0) g/dL RDW (11.5-14.5) % Plt Count (130-400) K/uL MPV (7.2-11.7) fL Neut % (Auto) (50.0-75.0) % Lymph % (Auto) (20.0-40.0) % Fountain % (Auto) (0.0-10.0) % Eos % (Auto) (0.0-4.0) % Baso % (Auto) (0.0-2.0) % Neut # (Auto) (1.8-7.0) K/uL Lymph # (Auto) (1.0-4.3) K/uL Fountain # (Auto) (0.0-0.8) K/uL Eos # (Auto) (0.0-0.7) K/uL Baso # (Auto) (0.0-0.2) K/uL APTT (21-34) SECONDS Puncture Site pCO2 (35-45) mm/Hg pO2 (80-100) mm/Hg HCO3 (21-28) mmol/L ABG pH (7.35-7.45) ABG Total CO2 (22-28) mmol/L ABG O2 Saturation (95-98) % ABG Base Excess (-2.0-3.0) mmol/L Michele Test ABG Potassium (3.6-5.2) mmol/L A-a O2 Difference mm/Hg Respiratory Index Sodium (132-148) mmol/l Chloride (98-107) mmol/L Glucose (65-105) mg/dl Lactate (0.7-2.1) mmol/L Vent Mode Mechanical Rate FiO2 % Tidal Volume PEEP Potassium (3.6-5.2) mmol/L Carbon Dioxide (22-30) mmol/L Anion Gap (10-20) BUN (7-17) mg/dL Creatinine (0.7-1.2) mg/dL Est GFR ( Amer) Est GFR (Non-Af Amer) POC Glucose (mg/dL) 363 H 259 H (65-110) mg/dL Random Glucose (65-105) mg/dL Calcium (8.6-10.4) mg/dl Phosphorus (2.5-4.5) mg/dL Magnesium (1.6-2.3) mg/dL Total Bilirubin (0.2-1.3) mg/dL AST (14-36) U/L ALT (9-52) U/L Alkaline Phosphatase (38-126) U/L Total Protein (6.3-8.3) g/dL Albumin (3.5-5.0) g/dL Globulin (2.2-3.9) gm/dL Albumin/Globulin Ratio (1.0-2.1) Arterial Blood Potassium (3.6-5.2) mmol/L Laboratory Results - last 24 hr 03/14/18 03/15/18 03/15/18 18:03 00:51 04:48 WBC RBC Hgb Hct MCV MCH MCHC RDW Plt Count MPV Neut % (Auto) Lymph % (Auto) Fountain % (Auto) Eos % (Auto) Baso % (Auto) Neut # (Auto) Lymph # (Auto) Fountain # (Auto) Eos # (Auto) Baso # (Auto) APTT Puncture Site pCO2 pO2 HCO3 ABG pH ABG Total CO2 ABG O2 Saturation ABG Base Excess Michele Test ABG Potassium A-a O2 Difference Respiratory Index Sodium Chloride Glucose Lactate Vent Mode Mechanical Rate FiO2 Tidal Volume PEEP Potassium Carbon Dioxide Anion Gap BUN Creatinine Est GFR ( Amer) Est GFR (Non-Af Amer) POC Glucose (mg/dL) 259 H 363 H 204 H Random Glucose Calcium Phosphorus Magnesium Total Bilirubin AST ALT Alkaline Phosphatase Total Protein Albumin Globulin Albumin/Globulin Ratio Arterial Blood Potassium 03/15/18 03/15/18 03/15/18 05:40 06:19 06:19 WBC 10.6 RBC 2.81 L Hgb 9.1 L Hct 26.5 L MCV 94.1 MCH 32.5 H MCHC 34.5 RDW 16.6 H Plt Count 141 MPV 12.2 H Neut % (Auto) 79.2 H Lymph % (Auto) 15.6 L Fountain % (Auto) 1.8 Eos % (Auto) 2.6 Baso % (Auto) 0.8 Neut # (Auto) 8.4 H Lymph # (Auto) 1.7 Fountain # (Auto) 0.2 Eos # (Auto) 0.3 Baso # (Auto) 0.1 APTT Puncture Site Rr pCO2 36 pO2 89 HCO3 24.4 ABG pH 7.42 ABG Total CO2 24.5 ABG O2 Saturation 99.8 H ABG Base Excess -0.7 Michele Test Pos ABG Potassium 2.8 L A-a O2 Difference 223.0 Respiratory Index 2.5 Sodium 141.0 139 Chloride 112.0 H 107 Glucose 255 H Lactate 3.9 H Vent Mode Prvc Mechanical Rate 16 FiO2 50.0 Tidal Volume 450 PEEP 5 Potassium 2.9 L Carbon Dioxide 22 Anion Gap 13 BUN 33 H Creatinine 0.9 Est GFR ( Amer) > 60 Est GFR (Non-Af Amer) > 60 POC Glucose (mg/dL) Random Glucose 224 H Calcium 7.0 L Phosphorus 2.2 L Magnesium 1.6 Total Bilirubin 5.6 H AST 33 ALT 29 Alkaline Phosphatase 119 Total Protein 4.6 L Albumin 2.1 L Globulin 2.5 Albumin/Globulin Ratio 0.8 L Arterial Blood Potassium 2.8 L 03/15/18 03/15/18 06:19 12:07 WBC RBC Hgb Hct MCV MCH MCHC RDW Plt Count MPV Neut % (Auto) Lymph % (Auto) Fountain % (Auto) Eos % (Auto) Baso % (Auto) Neut # (Auto) Lymph # (Auto) Fountain # (Auto) Eos # (Auto) Baso # (Auto) APTT 75 H D Puncture Site pCO2 pO2 HCO3 ABG pH ABG Total CO2 ABG O2 Saturation ABG Base Excess Michele Test ABG Potassium A-a O2 Difference Respiratory Index Sodium Chloride Glucose Lactate Vent Mode Mechanical Rate FiO2 Tidal Volume PEEP Potassium Carbon Dioxide Anion Gap BUN Creatinine Est GFR ( Amer) Est GFR (Non-Af Amer) POC Glucose (mg/dL) 205 H Random Glucose Calcium Phosphorus Magnesium Total Bilirubin AST ALT Alkaline Phosphatase Total Protein Albumin Globulin Albumin/Globulin Ratio Arterial Blood Potassium Fingerstick Blood Sugar Results: 204 Review of Systems - Review of Systems Systems not reviewed;Unavailable: Intubated Critical Care Progress Note - Ventilator Checklist Head of Bed 30 Degrees: Yes Daily Sedation Vacation: Yes Daily Assessment of Readiness to Wean: Yes Daily Spontaneous Breathing Trial: Yes PUD Prophalyxis: Yes DVT Prophylaxis: Yes Oral Care with Chlorhexidine Gluconate {CHG}: Yes - Nutrition Nutrition: Nutrition Category Date Time Status NPO Diet [DIET] Diets 03/06/18 Breakfast Active Assessment/Plan (1) Acute mesenteric ischemia Assessment and plan: 82-year-old female with past medical history of DM, hypothyroidism, and cholangiocarcinoma S/P whipple procedure 3 months ago at [facility]. She has been in a skilled nursing since this surgery. She presented to ED today with nausea, vomiting, abdominal pain, and lethargy. CT A/P demonstrated significant ischemic bowel. Subsequent CT demonstrated several GI infarcts, including SMA, hepatic, and splenic. She has had 2 ex-laps with lysis of adhesions (03/06) and partial small bowel resection (03/11). Patient continues to be intubated. Her urine output continues to significantly decline despite Lasix drip, and she is becoming overall more edematous. Patient has NGT with intermittent suction and TPN. Neuro: Alert, follows some commands. Pulm: Postop respiratory failure, on vent CV: Hemodynamically stable, off pressors. Hem: No acute issues Renal: Oliguric renal failure, urine output improved with Lasix drip and albumin drip together. Stopping diuresis as it is suspected that patient may have a low flow state to her mesentery. Continue IV albumin for volume. Endo: DM type II, short acting insulin sliding scale for coverage. Hypothyroidism continue levothyroxine IV. GI: Nothing by mouth. Continue TPN. Cannot start enteral feeds with suspected bowel ischemia. Patient is not having a severe lactic acidosis as would be expected. Planning to obtain angiography of mesenteric vessels on Saturday. ID: Severe sepsis from ischemic bowel, continue meropenem and Flagyl. DVT proph - heparin drip GI proph - Protonix IV pisano for strict I/O's during acute illness Code status - full code Critical Care Time spent 35 minutes Multi-disciplinary rounds were performed with house staff, nursing, speech therapy, respiratory therapy, pharmacy and nutrition with integrated input from the primary team/attending and other consulting services. The documented time is cumulative and includes review of patient data/exams/labs/chart review and examination of the patient on rounds and throughout the day; time is exclusive of any procedures or teaching time. Current Visit: Yes Status: Acute
[2018-03-15] MEDS: Albumin Human 25% (12.5 gm/50 ml) IV SCH (17:30)
[2018-03-15] MEDS: Levothyroxine 100 mcg (0.1 mg) Inj IVP SCH (17:30)
[2018-03-15] MEDS ORDERED: TPN IV ONE ×2 (18:00)
[2018-03-15] MEDS: TPN IV SCH (18:16)
[2018-03-15] MEDS: Vitamins A & D Oint UD Foilpak TOP PRN (21:39)
[2018-03-16] MEDS: Albumin Human 25% (12.5 gm/50 ml) IV SCH ×3 (00:15→16:00)
[2018-03-16] MEDS: Meropenem 500 MG in Sodium Chloride 0.9% 100 ML IVPB SCH ×3 (00:16→17:00)
[2018-03-16] MEDS: (Novolog) Insulin Aspart, Recombinant 100 u/ml 10 ml vial SC SCH ×4 (00:16→19:23)
[2018-03-16 05:42] LABS: ABG ALLEN TEST POS; ARTERIAL BLOOD GAS HCO3 23.9 mmol/L (21-28); ARTERIAL BLOOD GAS O2 SAT 99.3 % (95-98); ARTERIAL BLOOD GAS PCO2 35 mm/Hg (35-45); ARTERIAL BLOOD GAS PH 7.42 (7.35-7.45); ARTERIAL BLOOD GAS PO2 94 mm/Hg (80-100); ARTERIAL BLOOD GAS TCO2 23.8 mmol/L (22-28)
[2018-03-16 05:59] LABS: BASO # 0.1 K/uL (0.0-0.2); BASO % 1.1 % (0.0-2.0); EOS # 0.2 K/uL (0.0-0.7); EOS % 1.7 % (0.0-4.0); HEMOGLOBIN 8.8 g/dL (11.0-16.0); LYMPH # 2.1 K/uL (1.0-4.3); LYMPH % 20.5 % (20.0-40.0); MEAN CELL VOLUME 93.8 fL (81.0-99.0); MEAN CORPUSCULAR HEMOGLOBIN 31.4 pg (27.0-31.0); MEAN CORPUSCULAR HGB CONC 33.5 g/dL (33.0-37.0); MEAN PLATELET VOLUME 11.9 fL (7.2-11.7); MONO # 0.3 K/uL (0.0-0.8); MONO % 3.3 % (0.0-10.0); NEUT # 7.4 K/uL (1.8-7.0); NEUT % 73.4 % (50.0-75.0); NRBC % 0.1 % (0.0-2.0); RBC 2.81 Mil/uL (3.80-5.20); RED CELL DISTRIBUTION WIDTH 16.2 % (11.5-14.5); WHITE BLOOD COUNT 10.1 K/uL (4.8-10.8)
[2018-03-16] MEDS: metroNIDAZOLE IV 500 mg/100 ml 500 MG/100 ML BAG IVPB SCH ×3 (06:18→22:04)
[2018-03-16 06:21] LABS: ALB/GLOB RATIO 0.8 (1.0-2.1); ALBUMIN 2.1 g/dL (3.5-5.0); ALT/SGPT 22 U/L (9-52); AST/SGOT 21 U/L (14-36); BLOOD UREA NITROGEN 31 mg/dL (7-17); CALCIUM 7.1 mg/dl (8.6-10.4); GFR NON-AFRICAN AMERICAN > 60
[2018-03-16] MEDS ORDERED: TPN IV SCH (07:00)
--- NOTE | 2018-03-16 07:54 | RAD ---
Chest x-ray single frontal view HISTORY: Intubated. COMPARISON: 03/15/2018 FINDINGS: Lines and tubes in stable position. Dense diffuse confluent airspace opacities throughout both lungs. Bilateral pleural effusions. Cardiomegaly. Degenerative changes in the spine and shoulders. Impression: Lines and tubes in stable position. Dense diffuse confluent airspace opacities throughout both lungs. Bilateral pleural effusions. Cardiomegaly.
[2018-03-16] MEDS: Levothyroxine 100 mcg (0.1 mg) Inj IVP SCH (10:03)
--- NOTE | 2018-03-16 10:15 | CP.PCM.PN ---
Subjective - Date & Time of Evaluation Date of Evaluation: 03/16/18 Time of Evaluation: 10:14 - Subjective Subjective: General Surgery Progress Note for Dr. Freitas This 82F was sen and examined this AM at bedside. She is on minimal sedation, opening eyes to verbal stimuli, winces to pain. Pt otherwise still intubated unable to offer insightful ros. Objective - Vital Signs/Intake and Output Vital Signs (last 24 hours): Temp Pulse Resp BP Pulse Ox 99 F 117 H 23 128/33 L 98 03/16/18 04:00 03/16/18 07:07 03/16/18 07:07 03/16/18 07:07 03/16/18 07:07 Intake and Output: 03/16/18 03/16/18 06:59 18:59 Intake Total 1599.1 247.8 Output Total 2690 Balance -1090.9 247.8 - Medications Medications: Current Medications Albumin Human (Albumin Human 25% (12.5 Gm/50 Ml)) 12.5 gm IV Q8H [facility] Stop: 03/17/18 09:01 Last Admin: 03/16/18 10:03 Dose: 12.5 gm Dextrose (Dextrose 50% Inj) 0 ml IV STAT PRN; Protocol PRN Reason: Hypoglycemia Protocol Last Admin: 03/11/18 00:13 Dose: 50 ml Dextrose (Glutose 15) 0 gm PO ONCE PRN; Protocol PRN Reason: Hypoglycemia Protocol Glucagon (Glucagen Diagnostic Kit) 0 mg IM STAT PRN; Protocol PRN Reason: Hypoglycemia Protocol Hydromorphone HCl (Dilaudid) 0.25 mg IVP Q4H PRN PRN Reason: Pain, severe (8-10) Last Admin: 03/15/18 04:53 Dose: 0.25 mg Norepinephrine Bitartrate 4 mg (/ Sodium Chloride) 250 mls @ 15 mls/hr IV .[id number] PRN; Protocol PRN Reason: TITRATE PER MD ORDER Last Titration: 03/12/18 19:30 Dose: 0 mcg/min, 0 mls/hr Fentanyl Citrate 2,500 mcg/ (Sodium Chloride) 250 mls @ 28.62 mls/hr IV .Q8H45M ARPIT; Protocol Last Admin: 03/16/18 09:45 Dose: 2 mcg/kg/hr, 19.08 mls/hr Heparin Sodium/Sodium Chloride (Heparin 82534 Units/250ml 1/2 Normal Saline) 25,000 units in 250 mls @ 9.54 mls/hr IV .Q24H PRN; Protocol PRN Reason: ADJUST RATE PER PROTOCOL Last Admin: 03/15/18 15:35 Dose: 12.13 units/kg/hr, 11.572 mls/hr Meropenem 500 mg/ Sodium (Chloride) 100 mls @ 100 mls/hr IVPB Q8H ARPIT; Protocol Last Admin: 03/16/18 09:02 Dose: 100 mls/hr Metronidazole (Flagyl) 500 mg in 100 mls @ 100 mls/hr IVPB Q8H ARPIT; Protocol Last Admin: 03/16/18 06:18 Dose: 100 mls/hr Sodium Chloride 35 meq/Potassium Chloride 30 meq/Potassium Phosphate 30 mmole/Magnesium Sulfate 5 meq/Calcium Gluconate 4.5 meq/Insulin Human Regular 10 unit/Multivitamins/Vitamin C 10 ml / Chromium/Copper/Manganese/Zinc 1 ml/ Amino Acids 1,055.7589 mls @ 42 mls/hr IV .Q24H ONE Stop: 03/16/18 17:59 Last Admin: 03/15/18 18:14 Dose: 42 mls/hr Insulin Aspart (Novolog) 0 unit SC Q6 ARPIT; Protocol Last Admin: 03/16/18 05:17 Dose: Not Given Levothyroxine Sodium (Synthroid) 75 mcg IVP DAILY [facility] Last Admin: 03/16/18 10:03 Dose: 75 mcg Pantoprazole Sodium (Protonix Inj) 40 mg IVP Q12H ARPIT Last Admin: 03/16/18 10:02 Dose: 40 mg Vitamin A (Vitamin A & D Oint Ud Foilpak) 0.5 ea TOP Q4 PRN PRN Reason: Lip dryness Last Admin: 03/15/18 21:39 Dose: 0.5 ea - Labs Labs: 03/16/18 05:51 03/16/18 05:51 PT 15.7 SECONDS (9.7-12.2) H 03/11/18 04:15 INR 1.4 03/11/18 04:15 APTT 87 SECONDS (21-34) H D 03/16/18 08:46 - Constitutional Appears: Well, Non-toxic, No Acute Distress - Head Exam Head Exam: ATRAUMATIC, NORMOCEPHALIC - Eye Exam Eye Exam: Normal appearance. absent: Conjunctival injection, Scleral icterus - ENT Exam ENT Exam: Mucous Membranes Moist, Normal Oropharynx - Respiratory Exam Respiratory Exam: NORMAL BREATHING PATTERN. absent: Accessory Muscle Use, Respiratory Distress - Cardiovascular Exam Cardiovascular Exam: RRR - GI/Abdominal Exam GI & Abdominal Exam: Distended, Soft, Tenderness (diffuse tenderness) Additional comments: incision covered in ostomy device and draining seropurulent fluid - Extremities Exam Extremities Exam: Pedal Edema. absent: Calf Tenderness - Neurological Exam Neurological Exam: Altered - Psychiatric Exam Additional comments: sedated - Skin Additional comments: anasarca, warm, normal color Assessment and Plan - Assessment and Plan (Free Text) Assessment: 82F with mesenteric ischemia, necrotic bowel s/p 2 ex laps with resection of small bowel, left in discontinuity Plan: Continue medical management per primary and ICU team Continue heparin drip, antibiotics Continue to monitor output Trend labs, supplement potassium, phosphorus, and magnesium aggressively Recommend angiogram by IR on Saturday to assess if there is any improvement in vascular supply and intervention possible Further recommendations per Dr. Fortino Manriquez PGY3
--- NOTE | 2018-03-16 12:56 | CP.PCM.PN ---
Subjective - Date & Time of Evaluation Date of Evaluation: 03/16/18 Time of Evaluation: 10:45 - Subjective Subjective: clinically same Objective - Vital Signs/Intake and Output Vital Signs (last 24 hours): Temp Pulse Resp BP Pulse Ox 99 F 117 H 23 128/33 L 98 03/16/18 04:00 03/16/18 07:07 03/16/18 07:07 03/16/18 07:07 03/16/18 07:07 Intake and Output: 03/16/18 03/16/18 06:59 18:59 Intake Total 1599.1 761.8 Output Total 2690 Balance -1090.9 761.8 - Medications Medications: Current Medications Albumin Human (Albumin Human 25% (12.5 Gm/50 Ml)) 12.5 gm IV Q8H [facility] Stop: 03/17/18 09:01 Last Admin: 03/16/18 10:03 Dose: 12.5 gm Dextrose (Dextrose 50% Inj) 0 ml IV STAT PRN; Protocol PRN Reason: Hypoglycemia Protocol Last Admin: 03/11/18 00:13 Dose: 50 ml Dextrose (Glutose 15) 0 gm PO ONCE PRN; Protocol PRN Reason: Hypoglycemia Protocol Glucagon (Glucagen Diagnostic Kit) 0 mg IM STAT PRN; Protocol PRN Reason: Hypoglycemia Protocol Hydromorphone HCl (Dilaudid) 0.25 mg IVP Q4H PRN PRN Reason: Pain, severe (8-10) Last Admin: 03/15/18 04:53 Dose: 0.25 mg Norepinephrine Bitartrate 4 mg (/ Sodium Chloride) 250 mls @ 15 mls/hr IV .[id number] PRN; Protocol PRN Reason: TITRATE PER MD ORDER Last Titration: 03/12/18 19:30 Dose: 0 mcg/min, 0 mls/hr Fentanyl Citrate 2,500 mcg/ (Sodium Chloride) 250 mls @ 28.62 mls/hr IV .Q8H45M ARPIT; Protocol Last Admin: 03/16/18 09:45 Dose: 2 mcg/kg/hr, 19.08 mls/hr Heparin Sodium/Sodium Chloride (Heparin 29811 Units/250ml 1/2 Normal Saline) 25,000 units in 250 mls @ 9.54 mls/hr IV .Q24H PRN; Protocol PRN Reason: ADJUST RATE PER PROTOCOL Last Admin: 03/15/18 15:35 Dose: 12.13 units/kg/hr, 11.572 mls/hr Meropenem 500 mg/ Sodium (Chloride) 100 mls @ 100 mls/hr IVPB Q8H [facility]; Protocol Last Admin: 03/16/18 09:02 Dose: 100 mls/hr Metronidazole (Flagyl) 500 mg in 100 mls @ 100 mls/hr IVPB Q8H ARPIT; Protocol Last Admin: 03/16/18 06:18 Dose: 100 mls/hr Sodium Chloride 35 meq/Potassium Chloride 50 meq/Potassium Phosphate 15 mmole/Magnesium Sulfate 5 meq/Calcium Gluconate 4.5 meq/Insulin Human Regular 10 unit/Multivitamins/Vitamin C 10 ml / Chromium/Copper/Manganese/Zinc 1 ml/ Amino Acids 1,060.7589 mls @ 42 mls/hr IV .Q24H ONE Stop: 03/17/18 17:59 Insulin Aspart (Novolog) 0 unit SC Q6 ARPIT; Protocol Last Admin: 03/16/18 05:17 Dose: Not Given Levothyroxine Sodium (Synthroid) 75 mcg IVP DAILY [facility] Last Admin: 03/16/18 10:03 Dose: 75 mcg Pantoprazole Sodium (Protonix Inj) 40 mg IVP Q12H [facility] Last Admin: 03/16/18 10:02 Dose: 40 mg Vitamin A (Vitamin A & D Oint Ud Foilpak) 0.5 ea TOP Q4 PRN PRN Reason: Lip dryness Last Admin: 03/15/18 21:39 Dose: 0.5 ea - Labs Labs: 03/16/18 05:51 03/16/18 05:51 PT 15.7 SECONDS (9.7-12.2) H 03/11/18 04:15 INR 1.4 03/11/18 04:15 APTT 87 SECONDS (21-34) H D 03/16/18 08:46 - Constitutional Appears: Well - Head Exam Head Exam: ATRAUMATIC, NORMAL INSPECTION, NORMOCEPHALIC - Eye Exam Eye Exam: EOMI, Normal appearance, PERRL Pupil Exam: NORMAL ACCOMODATION, PERRL - ENT Exam ENT Exam: Mucous Membranes Moist, Normal Exam - Neck Exam Neck Exam: Full ROM, Normal Inspection. absent: Lymphadenopathy - Respiratory Exam Respiratory Exam: Decreased Breath Sounds - Cardiovascular Exam Cardiovascular Exam: REGULAR RHYTHM, +S1, +S2 - GI/Abdominal Exam GI & Abdominal Exam: Soft, Diminished Bowel Sounds - Rectal Exam Rectal Exam: Deferred
--- NOTE | 2018-03-16 16:28 | CP.CCUPN ---
CCU Objective - Vital Signs / Intake & Output Vital Signs (Last 4 hours): Vital Signs Pulse Resp BP Pulse Ox 03/16/18 14:07 108 H 19 137/47 L 99 03/16/18 14:00 110 H 22 99 03/16/18 13:07 104 H 19 135/45 L 99 03/16/18 13:00 113 H 23 99 Intake and Output (Last 8hrs): Intake & Output 03/16/18 03/16/18 03/16/18 06:59 14:59 22:59 Intake Total 1017.0 907.4 Output Total 1900 Balance -883.0 907.4 Weight 234 lb 2.095 oz Intake: IV 75 175 Intake, IV Amount 942.0 732.4 Left Wrist 94.4 94.4 Medial Port 300 150 Right Distal IJ 50 Right Distal Port 336 336 Internal Jugular Right Medial Port 161.6 152 Internal Jugular Output: Drainage 450 Right Nare 50 abdominal wound drain 400 Urine 1450 Urethral (Pisano) 1450 - Physical Exam Head: Positive for: Atraumatic, Normocephalic Pupils: Positive for: PERRL Extroacular Muscles: Positive for: EOMI Nose (External): Positive for: Other (NGT) Respiratory/Chest: Positive for: Clear to Auscultation, Other (on vent, intubated) Cardiovascular: Positive for: Normal S1, S2. Negative for: Murmurs Abdomen: Positive for: Tenderness (oozing from abdominal surgical site.), Distention Upper Extremity: Positive for: Edema Lower Extremity: Positive for: Edema, Other (R TLC) Neurological: Positive for: Other (sedated) Skin: Positive for: Warm, Normal Color - Medications Active Medications: Active Medications Generic Name Dose Route Start Last Admin Trade Name Freq PRN Reason Stop Dose Admin Albumin Human 12.5 gm 03/15/18 17:00 03/16/18 10:03 Albumin Human 25% (12.5 Gm/50 Ml) IV 03/17/18 09:01 12.5 gm Q8H ARPIT Administration Dextrose 0 ml 03/06/18 15:02 03/11/18 00:13 Dextrose 50% Inj IV 50 ml STAT PRN Administration Hypoglycemia Protocol Protocol Dextrose 0 gm 03/06/18 15:02 Glutose 15 PO ONCE PRN Hypoglycemia Protocol Protocol Glucagon 0 mg 03/06/18 15:02 Glucagen Diagnostic Kit IM STAT PRN Hypoglycemia Protocol Protocol Hydromorphone HCl 0.25 mg 03/10/18 20:35 03/15/18 04:53 Dilaudid IVP 0.25 mg Q4H PRN Administration Pain, severe (8-10) Norepinephrine Bitartrate 4 mg 250 mls @ 15 mls/hr 03/10/18 12:30 03/12/18 19:30 / Sodium Chloride IV 0 mcg/min .[id number] PRN 0 mls/hr TITRATE PER MD ORDER Titration Protocol 4 MCG/MIN Fentanyl Citrate 2,500 mcg/ 250 mls @ 28.62 mls/hr 03/10/18 23:30 03/16/18 09:45 Sodium Chloride IV 2 mcg/kg/hr .Q8H45M ARPIT 19.08 mls/hr Administration Protocol 3 MCG/KG/HR Heparin Sodium/Sodium Chloride 25,000 units in 250 mls @ 9.54 mls/hr 03/10/18 23:20 03/15/18 15:35 Heparin 88582 Units/250ml 1/2 Normal Saline IV 12.13 units/kg/hr .Q24H PRN 11.572 mls/hr ADJUST RATE PER PROTOCOL Administration Protocol 10 UNITS/KG/HR Meropenem 500 mg/ Sodium 100 mls @ 100 mls/hr 03/12/18 17:00 03/16/18 09:02 Chloride IVPB 100 mls/hr Q8H ARPIT Administration Protocol Metronidazole 500 mg in 100 mls @ 100 mls/hr 03/13/18 15:00 03/16/18 14:38 Flagyl IVPB 100 mls/hr Q8H ARPIT Administration Protocol Sodium Chloride 35 meq/ 1,060.7589 mls @ 42 mls/hr 03/16/18 18:00 Potassium Chloride 50 meq/ IV 03/17/18 17:59 Potassium Phosphate 15 mmole/ .Q24H ONE Magnesium Sulfate 5 meq/ Calcium Gluconate 4.5 meq/ Insulin Human Regular 10 unit/ Multivitamins/Vitamin C 10 ml / Chromium/Copper/Manganese/ Zinc 1 ml/ Amino Acids Fat Emulsion Intravenous 500 mls @ 42 mls/hr 03/16/18 18:00 Intralipid 20% IV 03/17/18 05:54 ONCE ONE Insulin Aspart 0 unit 03/15/18 12:00 03/16/18 14:38 Novolog SC 2 units Q6 ARPIT Administration Protocol Levothyroxine Sodium 75 mcg 03/15/18 17:00 03/16/18 10:03 Synthroid IVP 75 mcg DAILY ARPIT Administration Pantoprazole Sodium 40 mg 03/07/18 10:00 03/16/18 10:02 Protonix Inj IVP 40 mg Q12H ARPIT Administration Vitamin A 0.5 ea 03/10/18 20:33 03/15/18 21:39 Vitamin A & D Oint Ud Foilpak TOP 0.5 ea Q4 PRN Administration Lip dryness - Patient Studies Lab Studies: Lab Studies 03/16/18 03/16/18 03/16/18 Range/Units 12:03 08:46 05:51 WBC (4.8-10.8) K/uL RBC (3.80-5.20) Mil/uL Hgb (11.0-16.0) g/dL Hct (34.0-47.0) % MCV (81.0-99.0) fL MCH (27.0-31.0) pg MCHC (33.0-37.0) g/dL RDW (11.5-14.5) % Plt Count (130-400) K/uL MPV (7.2-11.7) fL Neut % (Auto) (50.0-75.0) % Lymph % (Auto) (20.0-40.0) % [place] % (Auto) (0.0-10.0) % Eos % (Auto) (0.0-4.0) % Baso % (Auto) (0.0-2.0) % Neut # (Auto) (1.8-7.0) K/uL Lymph # (Auto) (1.0-4.3) K/uL [place] # (Auto) (0.0-0.8) K/uL Eos # (Auto) (0.0-0.7) K/uL Baso # (Auto) (0.0-0.2) K/uL APTT 87 H D 31 D (21-34) SECONDS Puncture Site pCO2 (35-45) mm/Hg pO2 (80-100) mm/Hg HCO3 (21-28) mmol/L ABG pH (7.35-7.45) ABG Total CO2 (22-28) mmol/L ABG O2 Saturation (95-98) % ABG Base Excess (-2.0-3.0) mmol/L Michele Test ABG Potassium (3.6-5.2) mmol/L A-a O2 Difference mm/Hg Respiratory Index Sodium (132-148) mmol/l Chloride (98-107) mmol/L Glucose (65-105) mg/dl Lactate (0.7-2.1) mmol/L Vent Mode Mechanical Rate FiO2 % Tidal Volume PEEP Pressure Support Potassium (3.6-5.2) mmol/L Carbon Dioxide (22-30) mmol/L Anion Gap (10-20) BUN (7-17) mg/dL Creatinine (0.7-1.2) mg/dL Est GFR ( Amer) Est GFR (Non-Af Amer) POC Glucose (mg/dL) 155 H (65-110) mg/dL Random Glucose (65-105) mg/dL Calcium (8.6-10.4) mg/dl Phosphorus (2.5-4.5) mg/dL Magnesium (1.6-2.3) mg/dL Total Bilirubin (0.2-1.3) mg/dL AST (14-36) U/L ALT (9-52) U/L Alkaline Phosphatase (38-126) U/L Total Protein (6.3-8.3) g/dL Albumin (3.5-5.0) g/dL Globulin (2.2-3.9) gm/dL Albumin/Globulin Ratio (1.0-2.1) Arterial Blood Potassium (3.6-5.2) mmol/L 03/16/18 03/16/18 03/16/18 Range/Units 05:51 05:51 05:30 WBC 10.1 (4.8-10.8) K/uL RBC 2.81 L (3.80-5.20) Mil/uL Hgb 8.8 L (11.0-16.0) g/dL Hct 26.4 L (34.0-47.0) % MCV 93.8 (81.0-99.0) fL MCH 31.4 H (27.0-31.0) pg MCHC 33.5 (33.0-37.0) g/dL RDW 16.2 H (11.5-14.5) % Plt Count 161 (130-400) K/uL MPV 11.9 H (7.2-11.7) fL Neut % (Auto) 73.4 (50.0-75.0) % Lymph % (Auto) 20.5 (20.0-40.0) % [place] % (Auto) 3.3 (0.0-10.0) % Eos % (Auto) 1.7 (0.0-4.0) % Baso % (Auto) 1.1 (0.0-2.0) % Neut # (Auto) 7.4 H (1.8-7.0) K/uL Lymph # (Auto) 2.1 (1.0-4.3) K/uL [place] # (Auto) 0.3 (0.0-0.8) K/uL Eos # (Auto) 0.2 (0.0-0.7) K/uL Baso # (Auto) 0.1 (0.0-0.2) K/uL APTT (21-34) SECONDS Puncture Site Rr pCO2 35 (35-45) mm/Hg pO2 94 (80-100) mm/Hg HCO3 23.9 (21-28) mmol/L ABG pH 7.42 (7.35-7.45) ABG Total CO2 23.8 (22-28) mmol/L ABG O2 Saturation 99.3 H (95-98) % ABG Base Excess -1.3 (-2.0-3.0) mmol/L Michele Test Pos ABG Potassium 3.3 L (3.6-5.2) mmol/L A-a O2 Difference 219.0 mm/Hg Respiratory Index 2.3 Sodium 139 141.0 (132-148) mmol/l Chloride 107 113.0 H (98-107) mmol/L Glucose 143 H (65-105) mg/dl Lactate 3.6 H (0.7-2.1) mmol/L Vent Mode Simv/ps Mechanical Rate 10 FiO2 50.0 % Tidal Volume 450 PEEP 5 Pressure Support 8 Potassium 3.4 L (3.6-5.2) mmol/L Carbon Dioxide 21 L (22-30) mmol/L Anion Gap 14 (10-20) BUN 31 H (7-17) mg/dL Creatinine 0.7 (0.7-1.2) mg/dL Est GFR ( Amer) > 60 Est GFR (Non-Af Amer) > 60 POC Glucose (mg/dL) (65-110) mg/dL Random Glucose 134 H (65-105) mg/dL Calcium 7.1 L (8.6-10.4) mg/dl Phosphorus 4.0 (2.5-4.5) mg/dL Magnesium 1.7 (1.6-2.3) mg/dL Total Bilirubin 5.2 H (0.2-1.3) mg/dL AST 21 (14-36) U/L ALT 22 (9-52) U/L Alkaline Phosphatase 91 (38-126) U/L Total Protein 4.7 L (6.3-8.3) g/dL Albumin 2.1 L (3.5-5.0) g/dL Globulin 2.6 (2.2-3.9) gm/dL Albumin/Globulin Ratio 0.8 L (1.0-2.1) Arterial Blood Potassium 3.3 L (3.6-5.2) mmol/L 03/16/18 03/16/18 03/15/18 Range/Units 05:13 00:04 17:36 WBC (4.8-10.8) K/uL RBC (3.80-5.20) Mil/uL Hgb (11.0-16.0) g/dL Hct (34.0-47.0) % MCV (81.0-99.0) fL MCH (27.0-31.0) pg MCHC (33.0-37.0) g/dL RDW (11.5-14.5) % Plt Count (130-400) K/uL MPV (7.2-11.7) fL Neut % (Auto) (50.0-75.0) % Lymph % (Auto) (20.0-40.0) % [place] % (Auto) (0.0-10.0) % Eos % (Auto) (0.0-4.0) % Baso % (Auto) (0.0-2.0) % Neut # (Auto) (1.8-7.0) K/uL Lymph # (Auto) (1.0-4.3) K/uL [place] # (Auto) (0.0-0.8) K/uL Eos # (Auto) (0.0-0.7) K/uL Baso # (Auto) (0.0-0.2) K/uL APTT (21-34) SECONDS Puncture Site pCO2 (35-45) mm/Hg pO2 (80-100) mm/Hg HCO3 (21-28) mmol/L ABG pH (7.35-7.45) ABG Total CO2 (22-28) mmol/L ABG O2 Saturation (95-98) % ABG Base Excess (-2.0-3.0) mmol/L Michele Test ABG Potassium (3.6-5.2) mmol/L A-a O2 Difference mm/Hg Respiratory Index Sodium (132-148) mmol/l Chloride (98-107) mmol/L Glucose (65-105) mg/dl Lactate (0.7-2.1) mmol/L Vent Mode Mechanical Rate FiO2 % Tidal Volume PEEP Pressure Support Potassium (3.6-5.2) mmol/L Carbon Dioxide (22-30) mmol/L Anion Gap (10-20) BUN (7-17) mg/dL Creatinine (0.7-1.2) mg/dL Est GFR ( Amer) Est GFR (Non-Af Amer) POC Glucose (mg/dL) 115 H 131 H 112 H (65-110) mg/dL Random Glucose (65-105) mg/dL Calcium (8.6-10.4) mg/dl Phosphorus (2.5-4.5) mg/dL Magnesium (1.6-2.3) mg/dL Total Bilirubin (0.2-1.3) mg/dL AST (14-36) U/L ALT (9-52) U/L Alkaline Phosphatase (38-126) U/L Total Protein (6.3-8.3) g/dL Albumin (3.5-5.0) g/dL Globulin (2.2-3.9) gm/dL Albumin/Globulin Ratio (1.0-2.1) Arterial Blood Potassium (3.6-5.2) mmol/L Laboratory Results - last 24 hr 03/15/18 03/16/1818 17:36 00:04 05:13 WBC RBC Hgb Hct MCV MCH MCHC RDW Plt Count MPV Neut % (Auto) Lymph % (Auto) [place] % (Auto) Eos % (Auto) Baso % (Auto) Neut # (Auto) Lymph # (Auto) [place] # (Auto) Eos # (Auto) Baso # (Auto) APTT Puncture Site pCO2 pO2 HCO3 ABG pH ABG Total CO2 ABG O2 Saturation ABG Base Excess Michele Test ABG Potassium A-a O2 Difference Respiratory Index Sodium Chloride Glucose Lactate Vent Mode Mechanical Rate FiO2 Tidal Volume PEEP Pressure Support Potassium Carbon Dioxide Anion Gap BUN Creatinine Est GFR ( Amer) Est GFR (Non-Af Amer) POC Glucose (mg/dL) 112 H 131 H 115 H Random Glucose Calcium Phosphorus Magnesium Total Bilirubin AST ALT Alkaline Phosphatase Total Protein Albumin Globulin Albumin/Globulin Ratio Arterial Blood Potassium 03/16/18 03/16/18 03/16/18 05:30 05:51 05:51 WBC 10.1 RBC 2.81 L Hgb 8.8 L Hct 26.4 L MCV 93.8 MCH 31.4 H MCHC 33.5 RDW 16.2 H Plt Count 161 MPV 11.9 H Neut % (Auto) 73.4 Lymph % (Auto) 20.5 [place] % (Auto) 3.3 Eos % (Auto) 1.7 Baso % (Auto) 1.1 Neut # (Auto) 7.4 H Lymph # (Auto) 2.1 [place] # (Auto) 0.3 Eos # (Auto) 0.2 Baso # (Auto) 0.1 APTT Puncture Site Rr pCO2 35 pO2 94 HCO3 23.9 ABG pH 7.42 ABG Total CO2 23.8 ABG O2 Saturation 99.3 H ABG Base Excess -1.3 Michele Test Pos ABG Potassium 3.3 L A-a O2 Difference 219.0 Respiratory Index 2.3 Sodium 141.0 139 Chloride 113.0 H 107 Glucose 143 H Lactate 3.6 H Vent Mode Simv/ps Mechanical Rate 10 FiO2 50.0 Tidal Volume 450 PEEP 5 Pressure Support 8 Potassium 3.4 L Carbon Dioxide 21 L Anion Gap 14 BUN 31 H Creatinine 0.7 Est GFR ( Amer) > 60 Est GFR (Non-Af Amer) > 60 POC Glucose (mg/dL) Random Glucose 134 H Calcium 7.1 L Phosphorus 4.0 Magnesium 1.7 Total Bilirubin 5.2 H AST 21 ALT 22 Alkaline Phosphatase 91 Total Protein 4.7 L Albumin 2.1 L Globulin 2.6 Albumin/Globulin Ratio 0.8 L Arterial Blood Potassium 3.3 L 03/16/18 03/16/18 03/16/18 05:51 08:46 12:03 WBC RBC Hgb Hct MCV MCH MCHC RDW Plt Count MPV Neut % (Auto) Lymph % (Auto) [place] % (Auto) Eos % (Auto) Baso % (Auto) Neut # (Auto) Lymph # (Auto) [place] # (Auto) Eos # (Auto) Baso # (Auto) APTT 31 D 87 H D Puncture Site pCO2 pO2 HCO3 ABG pH ABG Total CO2 ABG O2 Saturation ABG Base Excess Michele Test ABG Potassium A-a O2 Difference Respiratory Index Sodium Chloride Glucose Lactate Vent Mode Mechanical Rate FiO2 Tidal Volume PEEP Pressure Support Potassium Carbon Dioxide Anion Gap BUN Creatinine Est GFR ( Amer) Est GFR (Non-Af Amer) POC Glucose (mg/dL) 155 H Random Glucose Calcium Phosphorus Magnesium Total Bilirubin AST ALT Alkaline Phosphatase Total Protein Albumin Globulin Albumin/Globulin Ratio Arterial Blood Potassium Fingerstick Blood Sugar Results: 155 Critical Care Progress Note - Nutrition Nutrition: Nutrition Category Date Time Status NPO Diet [DIET] Diets 03/06/18 Breakfast Active Assessment/Plan (1) Acute mesenteric ischemia Assessment and plan: 82-year-old female with past medical history of DM, hypothyroidism, and cholangiocarcinoma S/P whipple procedure 3 months ago at [facility]. She has been in a senior care since this surgery. She presented to ED today with nausea, vomiting, abdominal pain, and lethargy. CT A/P demonstrated significant ischemic bowel. Subsequent CT demonstrated several GI infarcts, including SMA, hepatic, and splenic. She has had 2 ex-laps with lysis of adhesions (03/06) and partial small bowel resection (03/11). Patient continues to be intubated. Her urine output continues to significantly decline despite Lasix drip, and she is becoming overall more edematous. Patient has NGT with intermittent suction and TPN. Neuro: not alert today, barely responsive to deep painful stimulation. Pulm: Postop respiratory failure, on vent, tolerated PS trials for 2 days. CV: Hemodynamically stable, off pressors. Hem: No acute issues Renal: Oliguric renal failure, urine output improved with Lasix drip and albumin drip together. Stopping diuresis as it is suspected that patient may have a low flow state to her mesentery. Continue IV albumin for volume. Endo: DM type II, short acting insulin sliding scale for coverage. Hypothyroidism continue levothyroxine IV. GI: Nothing by mouth. Continue TPN. Cannot start enteral feeds with suspected bowel ischemia. Patient is not having a severe lactic acidosis as would be expected. Planning to obtain angiography of mesenteric vessels on Saturday. ID: Severe sepsis from ischemic bowel, continue meropenem and Flagyl. DVT proph - heparin drip GI proph - Protonix IV pisano for strict I/O's during acute illness Code status - full code Critical Care Time spent 35 minutes Multi-disciplinary rounds were performed with house staff, nursing, speech therapy, respiratory therapy, pharmacy and nutrition with integrated input from the primary team/attending and other consulting services. The documented time is cumulative and includes review of patient data/exams/labs/chart review and examination of the patient on rounds and throughout the day; time is exclusive of any procedures or teaching time. Current Visit: Yes Status: Acute
--- NOTE | 2018-03-16 16:34 | CP.PCM.PN ---
Subjective - Date & Time of Evaluation Date of Evaluation: 03/16/18 Time of Evaluation: 08:00 - Subjective Subjective: 82F with mesenteric ischemia, necrotic bowel s/p 2 ex laps with resection of small bowel, left in discontinuity Objective - Vital Signs/Intake and Output Vital Signs (last 24 hours): Temp Pulse Resp BP Pulse Ox 98.8 F 108 H 19 137/47 L 99 03/16/18 12:00 03/16/18 14:07 03/16/18 14:07 03/16/18 14:07 03/16/18 14:07 Intake and Output: 03/16/18 03/16/18 06:59 18:59 Intake Total 1599.1 907.4 Output Total 2690 Balance -1090.9 907.4 - Medications Medications: Current Medications Albumin Human (Albumin Human 25% (12.5 Gm/50 Ml)) 12.5 gm IV Q8H [facility] Stop: 03/17/18 09:01 Last Admin: 03/16/18 10:03 Dose: 12.5 gm Dextrose (Dextrose 50% Inj) 0 ml IV STAT PRN; Protocol PRN Reason: Hypoglycemia Protocol Last Admin: 03/11/18 00:13 Dose: 50 ml Dextrose (Glutose 15) 0 gm PO ONCE PRN; Protocol PRN Reason: Hypoglycemia Protocol Glucagon (Glucagen Diagnostic Kit) 0 mg IM STAT PRN; Protocol PRN Reason: Hypoglycemia Protocol Hydromorphone HCl (Dilaudid) 0.25 mg IVP Q4H PRN PRN Reason: Pain, severe (8-10) Last Admin: 03/15/18 04:53 Dose: 0.25 mg Norepinephrine Bitartrate 4 mg (/ Sodium Chloride) 250 mls @ 15 mls/hr IV .[id number] PRN; Protocol PRN Reason: TITRATE PER MD ORDER Last Titration: 03/12/18 19:30 Dose: 0 mcg/min, 0 mls/hr Fentanyl Citrate 2,500 mcg/ (Sodium Chloride) 250 mls @ 28.62 mls/hr IV .[id number] [facility]; Protocol Last Admin: 03/16/18 09:45 Dose: 2 mcg/kg/hr, 19.08 mls/hr Heparin Sodium/Sodium Chloride (Heparin 48029 Units/250ml 1/2 Normal Saline) 25,000 units in 250 mls @ 9.54 mls/hr IV .Q24H PRN; Protocol PRN Reason: ADJUST RATE PER PROTOCOL Last Admin: 03/15/18 15:35 Dose: 12.13 units/kg/hr, 11.572 mls/hr Meropenem 500 mg/ Sodium (Chloride) 100 mls @ 100 mls/hr IVPB Q8H [facility]; Protocol Last Admin: 03/16/18 09:02 Dose: 100 mls/hr Metronidazole (Flagyl) 500 mg in 100 mls @ 100 mls/hr IVPB Q8H [facility]; Protocol Last Admin: 03/16/18 14:38 Dose: 100 mls/hr Sodium Chloride 35 meq/Potassium Chloride 50 meq/Potassium Phosphate 15 mmole/Magnesium Sulfate 5 meq/Calcium Gluconate 4.5 meq/Insulin Human Regular 10 unit/Multivitamins/Vitamin C 10 ml / Chromium/Copper/Manganese/Zinc 1 ml/ Amino Acids 1,060.7589 mls @ 42 mls/hr IV .Q24H ONE Stop: 03/17/18 17:59 Fat Emulsion Intravenous (Intralipid 20%) 500 mls @ 42 mls/hr IV ONCE ONE Stop: 03/17/18 05:54 Insulin Aspart (Novolog) 0 unit SC Q6 [facility]; Protocol Last Admin: 03/16/18 14:38 Dose: 2 units Levothyroxine Sodium (Synthroid) 75 mcg IVP DAILY [facility] Last Admin: 03/16/18 10:03 Dose: 75 mcg Pantoprazole Sodium (Protonix Inj) 40 mg IVP Q12H [facility] Last Admin: 03/16/18 10:02 Dose: 40 mg Vitamin A (Vitamin A & D Oint Ud Foilpak) 0.5 ea TOP Q4 PRN PRN Reason: Lip dryness Last Admin: 03/15/18 21:39 Dose: 0.5 ea - Labs Labs: 03/16/18 05:51 03/16/18 05:51 PT 15.7 SECONDS (9.7-12.2) H 03/11/18 04:15 INR 1.4 03/11/18 04:15 APTT 87 SECONDS (21-34) H D 03/16/18 08:46 - Constitutional Appears: Chronically Ill - Eye Exam Eye Exam: absent: Scleral icterus - ENT Exam ENT Exam: Mucous Membranes Dry - Neck Exam Neck Exam: absent: Lymphadenopathy - Respiratory Exam Respiratory Exam: Decreased Breath Sounds - Cardiovascular Exam Cardiovascular Exam: REGULAR RHYTHM - GI/Abdominal Exam GI & Abdominal Exam: Distended, Tenderness - Rectal Exam Rectal Exam: Deferred - Exam Exam: NORMAL INSPECTION - Extremities Exam Extremities Exam: absent: Pedal Edema - Back Exam Back Exam: absent: CVA tenderness (L), CVA tenderness (R), NORMAL INSPECTION - Neurological Exam Neurological Exam: Alert, Awake - Psychiatric Exam Psychiatric exam: Depressed Assessment and Plan (1) Abdominal pain Status: Acute (2) Acute mesenteric ischemia Status: Acute (3) History of cholangiocarcinoma Status: Acute - Assessment and Plan (Free Text) Assessment: 82F with mesenteric ischemia, necrotic bowel s/p 2 ex laps with resection of small bowel, left in discontinuity IV rx renewed remains intubated will need IR angio prognosis remains poor
[2018-03-16] MEDS ORDERED: Fat Emulsion 20% IV 500 ML IV ONE (18:00)
[2018-03-16] MEDS ORDERED: TPN # 5 IV ONE (18:00)
[2018-03-16] MEDS: HYDROmorphone 0.5 mg/0.5 ml ISec IVP PRN (23:46)
[2018-03-17] MEDS: Meropenem 500 MG in Sodium Chloride 0.9% 100 ML IVPB SCH ×3 (00:01→17:00)
[2018-03-17] MEDS: (Novolog) Insulin Aspart, Recombinant 100 u/ml 10 ml vial SC SCH ×4 (00:27→18:00)
[2018-03-17] MEDS: Albumin Human 25% (12.5 gm/50 ml) IV SCH ×2 (01:00→08:00)
[2018-03-17 04:48] LABS: ABG ALLEN TEST POS; ARTERIAL BLOOD GAS HCO3 20.9 mmol/L (21-28); ARTERIAL BLOOD GAS O2 SAT 98.7 % (95-98); ARTERIAL BLOOD GAS PCO2 36 mm/Hg (35-45); ARTERIAL BLOOD GAS PH 7.35 (7.35-7.45); ARTERIAL BLOOD GAS PO2 96 mm/Hg (80-100)
[2018-03-17 06:16] LABS: BASO # 0.1 K/uL (0.0-0.2); BASO % 0.7 % (0.0-2.0); EOS # 0.2 K/uL (0.0-0.7); EOS % 1.5 % (0.0-4.0); HEMOGLOBIN 9.1 g/dL (11.0-16.0); LYMPH # 3.6 K/uL (1.0-4.3); LYMPH % 27.3 % (20.0-40.0); MEAN CELL VOLUME 94.7 fL (81.0-99.0); MEAN CORPUSCULAR HEMOGLOBIN 30.9 pg (27.0-31.0); MEAN CORPUSCULAR HGB CONC 32.6 g/dL (33.0-37.0); MEAN PLATELET VOLUME 11.3 fL (7.2-11.7); MONO # 0.5 K/uL (0.0-0.8); MONO % 3.8 % (0.0-10.0); NEUT # 8.7 K/uL (1.8-7.0); NEUT % 66.7 % (50.0-75.0); NRBC % 0.3 % (0.0-2.0); RBC 2.94 Mil/uL (3.80-5.20); RED CELL DISTRIBUTION WIDTH 16.4 % (11.5-14.5); WHITE BLOOD COUNT 13.1 K/uL (4.8-10.8)
[2018-03-17] MEDS: metroNIDAZOLE IV 500 mg/100 ml 500 MG/100 ML BAG IVPB SCH ×3 (06:23→22:43)
[2018-03-17 06:27] LABS: ALB/GLOB RATIO 0.9 (1.0-2.1); ALBUMIN 2.4 g/dL (3.5-5.0); ALT/SGPT 17 U/L (9-52); AST/SGOT 28 U/L (14-36); BLOOD UREA NITROGEN 27 mg/dL (7-17); CALCIUM 7.4 mg/dl (8.6-10.4); GFR NON-AFRICAN AMERICAN > 60
[2018-03-17] MEDS: Levothyroxine 100 mcg (0.1 mg) Inj IVP SCH (09:34)
--- NOTE | 2018-03-17 09:39 | RAD ---
Chest x-ray single frontal view History: Intubated. Comparison: 03/16/2018 Findings: Lines and tubes in stable position. Moderate to severe venous congestion. Prominent consolidative opacification noted within the left mid to lower lung zone and right lung base. Moderate left and small right pleural effusion. Chronic interstitial lung markings. Atherosclerotic calcification at the aortic knob. Cardiomegaly. Enlarged ectatic aorta. Degenerative changes in the spine and shoulders. Impression: Lines and tubes in stable position. Moderate to severe venous congestion. Prominent consolidative opacification noted within the left mid to lower lung zone and right lung base. Moderate left and small right pleural effusion. Chronic interstitial lung markings. Atherosclerotic calcification at the aortic knob. Cardiomegaly. Enlarged ectatic aorta.
--- NOTE | 2018-03-17 09:52 | CP.PCM.PN ---
Subjective - Date & Time of Evaluation Date of Evaluation: 03/17/18 Time of Evaluation: 09:49 - Subjective Subjective: Surgery PT seen and examined. Had fever of 101 overnight. PT is intubated. On heparin drip and TPN. Objective - Vital Signs/Intake and Output Vital Signs (last 24 hours): Temp Pulse Resp BP Pulse Ox 98.8 F 105 H 22 141/49 L 99 03/17/18 04:00 03/17/18 06:08 03/17/18 06:08 03/17/18 06:08 03/17/18 06:08 Intake and Output: 03/17/18 03/17/18 06:59 18:59 Intake Total 1907.6 261.6 Output Total 1805 0 Balance 102.6 261.6 - Medications Medications: Current Medications Dextrose (Dextrose 50% Inj) 0 ml IV STAT PRN; Protocol PRN Reason: Hypoglycemia Protocol Last Admin: 03/11/18 00:13 Dose: 50 ml Dextrose (Glutose 15) 0 gm PO ONCE PRN; Protocol PRN Reason: Hypoglycemia Protocol Glucagon (Glucagen Diagnostic Kit) 0 mg IM STAT PRN; Protocol PRN Reason: Hypoglycemia Protocol Hydromorphone HCl (Dilaudid) 0.25 mg IVP Q4H PRN PRN Reason: Pain, severe (8-10) Last Admin: 03/16/18 23:46 Dose: 0.25 mg Heparin Sodium/Sodium Chloride (Heparin 08005 Units/250ml 1/2 Normal Saline) 25,000 units in 250 mls @ 9.54 mls/hr IV .Q24H PRN; Protocol PRN Reason: ADJUST RATE PER PROTOCOL Last Titration: 03/17/18 08:21 Dose: 9.13 units/kg/hr, 8.71 mls/hr Meropenem 500 mg/ Sodium (Chloride) 100 mls @ 100 mls/hr IVPB Q8H [facility]; Protocol Last Admin: 03/17/18 09:31 Dose: 100 mls/hr Metronidazole (Flagyl) 500 mg in 100 mls @ 100 mls/hr IVPB Q8H [facility]; Protocol Last Admin: 03/17/18 06:23 Dose: 100 mls/hr Sodium Chloride 35 meq/Potassium Chloride 50 meq/Potassium Phosphate 15 mmole/Magnesium Sulfate 5 meq/Calcium Gluconate 4.5 meq/Insulin Human Regular 10 unit/Multivitamins/Vitamin C 10 ml / Chromium/Copper/Manganese/Zinc 1 ml/ Amino Acids 1,060.7589 mls @ 42 mls/hr IV .Q24H [facility] Stop: 03/17/18 17:59 Last Admin: 03/16/18 17:32 Dose: 42 mls/hr Insulin Aspart (Novolog) 0 unit SC Q6 [facility]; Protocol Last Admin: 03/17/18 06:36 Dose: Not Given Levothyroxine Sodium (Synthroid) 75 mcg IVP DAILY [facility] Last Admin: 03/17/18 09:34 Dose: 75 mcg Pantoprazole Sodium (Protonix Inj) 40 mg IVP Q12H [facility] Last Admin: 03/17/18 09:35 Dose: 40 mg Vitamin A (Vitamin A & D Oint Ud Foilpak) 0.5 ea TOP Q4 PRN PRN Reason: Lip dryness Last Admin: 03/15/18 21:39 Dose: 0.5 ea - Labs Labs: 03/17/18 06:05 03/17/18 06:03 PT 15.7 SECONDS (9.7-12.2) H 03/11/18 04:15 INR 1.4 03/11/18 04:15 APTT 122 SECONDS (21-34) H* D 03/17/18 06:05 - Constitutional Appears: In Acute Distress - Head Exam Head Exam: ATRAUMATIC, NORMAL INSPECTION, NORMOCEPHALIC - Eye Exam Eye Exam: Normal appearance - ENT Exam ENT Exam: Mucous Membranes Moist - Neck Exam Neck Exam: Normal Inspection - Respiratory Exam Additional comments: On vent - Cardiovascular Exam Cardiovascular Exam: Tachycardia - GI/Abdominal Exam GI & Abdominal Exam: Soft. absent: Distended Additional comments: midline wound bag has ss fluids 200 cc overnight J tube has minimal output, - Exam Additional comments: Tran clear yellow 800 cc /8hrs - Neurological Exam Neurological Exam: absent: Normal Gait - Skin Skin Exam: absent: Dry, Intact Assessment and Plan - Assessment and Plan (Free Text) Assessment: 82F with mesenteric ischemia, necrotic bowel s/p 2 ex laps with resection of small bowel, left in discontinuity Plan: Continue medical management per primary and ICU team Continue heparin drip, antibiotics Continue to monitor output Trend labs, supplement potassium, phosphorus, and magnesium aggressively F/U IR on Yariel to assess if there is any improvement in vascular supply and intervention possible Further recommendations per Dr. Freitas
[2018-03-17] MEDS ORDERED: Dexmedetomidine Hydrochloride 200 MCG in Sodium Chloride 0.9% 48 ML IV SCH (10:00)
--- NOTE | 2018-03-17 10:49 | CP.CCUPN ---
CCU Subjective - Physician Review Subjective (Free Text): 03/17/18 11:08 Patient was seen and examined this morning. Patient remains intubated. Patient is not agitated. She is awake and responsive. She is not on vasopressors and hemodynamically stable. Her urine output is 2600cc overnight. Critical Care Time Spent (in minutes): 35 CCU Objective - Vital Signs / Intake & Output Intake and Output (Last 8hrs): Intake & Output 03/16/18 03/17/18 03/17/18 22:59 06:59 14:59 Intake Total 1101.2 1366.4 261.6 Output Total 2270 935 0 Balance -1168.8 431.4 261.6 Weight 216 lb 14.958 oz Intake: IV 139 70 Intake, IV Amount 962.2 1366.4 191.6 Left Wrist 106.2 94.4 23.6 Medial Port 150 Right Distal IJ 250 Right Distal Port 630 672 168 Internal Jugular Right Medial Port 76 350 Internal Jugular Output: Drainage 400 200 0 LEFT JEJUNOSTOMY 0 Right Nare 50 0 0 abdominal wound drain 350 200 Urine 1870 735 Urethral (Tran) 1870 735 - Physical Exam Head: Positive for: Atraumatic, Normocephalic Pupils: Positive for: PERRL Extroacular Muscles: Positive for: EOMI Nose (External): Positive for: Other (NGT) Respiratory/Chest: Positive for: Clear to Auscultation, Other (on vent, intubated) Cardiovascular: Positive for: Normal S1, S2. Negative for: Murmurs Abdomen: Positive for: Tenderness (oozing from abdominal surgical site.), Distention Upper Extremity: Positive for: Edema Lower Extremity: Positive for: Edema, Other (R TLC) Neurological: Positive for: Other (sedated) Skin: Positive for: Warm, Normal Color Psychiatric: Positive for: Alert - Medications Active Medications: Active Medications Generic Name Dose Route Start Last Admin Trade Name Freq PRN Reason Stop Dose Admin Dextrose 0 ml 03/06/18 15:02 03/11/18 00:13 Dextrose 50% Inj IV 50 ml STAT PRN Administration Hypoglycemia Protocol Protocol Dextrose 0 gm 03/06/18 15:02 Glutose 15 PO ONCE PRN Hypoglycemia Protocol Protocol Glucagon 0 mg 03/06/18 15:02 Glucagen Diagnostic Kit IM STAT PRN Hypoglycemia Protocol Protocol Hydromorphone HCl 0.25 mg 03/10/18 20:35 03/16/18 23:46 Dilaudid IVP 0.25 mg Q4H PRN Administration Pain, severe (8-10) Heparin Sodium/Sodium Chloride 25,000 units in 250 mls @ 9.54 mls/hr 03/10/18 23:20 03/17/18 08:21 Heparin 69887 Units/250ml 1/2 Normal Saline IV 9.13 units/kg/hr .Q24H PRN 8.71 mls/hr ADJUST RATE PER PROTOCOL Titration Protocol 10 UNITS/KG/HR Meropenem 500 mg/ Sodium 100 mls @ 100 mls/hr 03/12/18 17:00 03/17/18 09:31 Chloride IVPB 100 mls/hr Q8H [facility] Administration Protocol Metronidazole 500 mg in 100 mls @ 100 mls/hr 03/13/18 15:00 03/17/18 06:23 Flagyl IVPB 100 mls/hr Q8H [facility] Administration Protocol Sodium Chloride 35 meq/ 1,060.7589 mls @ 42 mls/hr 03/16/18 18:00 03/16/18 17:32 Potassium Chloride 50 meq/ IV 03/17/18 17:59 42 mls/hr Potassium Phosphate 15 mmole/ .Q24H [facility] Administration Magnesium Sulfate 5 meq/ Calcium Gluconate 4.5 meq/ Insulin Human Regular 10 unit/ Multivitamins/Vitamin C 10 ml / Chromium/Copper/Manganese/ Zinc 1 ml/ Amino Acids Dexmedetomidine HCl 200 mcg/ 50 mls @ 4.92 mls/hr 03/17/18 10:00 Sodium Chloride IV TITR [facility] Protocol 0.2 MCG/KG/HR Magnesium Sulfate/Dextrose 1 gm in 100 mls @ 300 mls/hr 03/17/18 10:00 Magnesium Sulfate 1 Gm/100 Ml D5w IVPB 03/17/18 10:49 Q30M [facility] Insulin Aspart 0 unit 03/15/18 12:00 03/17/18 06:36 Novolog SC Not Given Q[facility] Protocol Levothyroxine Sodium 75 mcg 03/15/18 17:00 03/17/18 09:34 Synthroid IVP 75 mcg DAILY [facility] Administration Pantoprazole Sodium 40 mg 03/07/18 10:00 03/17/18 09:35 Protonix Inj IVP 40 mg Q12H [facility] Administration Vitamin A 0.5 ea 03/10/18 20:33 03/15/18 21:39 Vitamin A & D Oint Ud Foilpak TOP 0.5 ea Q4 PRN Administration Lip dryness - Patient Studies Lab Studies: Lab Studies 03/17/18 03/17/18 03/17/18 Range/Units 06:05 06:05 06:03 WBC 13.1 H (4.8-10.8) K/uL RBC 2.94 L (3.80-5.20) Mil/uL Hgb 9.1 L (11.0-16.0) g/dL Hct 27.9 L (34.0-47.0) % MCV 94.7 (81.0-99.0) fL MCH 30.9 (27.0-31.0) pg MCHC 32.6 L (33.0-37.0) g/dL RDW 16.4 H (11.5-14.5) % Plt Count 184 (130-400) K/uL MPV 11.3 (7.2-11.7) fL Neut % (Auto) 66.7 (50.0-75.0) % Lymph % (Auto) 27.3 (20.0-40.0) % Lynn % (Auto) 3.8 (0.0-10.0) % Eos % (Auto) 1.5 (0.0-4.0) % Baso % (Auto) 0.7 (0.0-2.0) % Neut # (Auto) 8.7 H (1.8-7.0) K/uL Lymph # (Auto) 3.6 (1.0-4.3) K/uL Lynn # (Auto) 0.5 (0.0-0.8) K/uL Eos # (Auto) 0.2 (0.0-0.7) K/uL Baso # (Auto) 0.1 (0.0-0.2) K/uL APTT 122 H* D (21-34) SECONDS Puncture Site pCO2 (35-45) mm/Hg pO2 (80-100) mm/Hg HCO3 (21-28) mmol/L ABG pH (7.35-7.45) ABG Total CO2 (22-28) mmol/L ABG O2 Saturation (95-98) % ABG Base Excess (-2.0-3.0) mmol/L Michele Test ABG Potassium (3.6-5.2) mmol/L A-a O2 Difference mm/Hg Respiratory Index Sodium 140 (132-148) mmol/l Chloride 109 H (98-107) mmol/L Glucose (65-105) mg/dl Lactate (0.7-2.1) mmol/L Vent Mode Mechanical Rate FiO2 % Tidal Volume PEEP Pressure Support Potassium 3.4 L (3.6-5.2) mmol/L Carbon Dioxide 19 L (22-30) mmol/L Anion Gap 16 (10-20) BUN 27 H (7-17) mg/dL Creatinine 0.7 (0.7-1.2) mg/dL Est GFR ( Amer) > 60 Est GFR (Non-Af Amer) > 60 POC Glucose (mg/dL) (65-110) mg/dL Random Glucose 137 H (65-105) mg/dL Calcium 7.4 L (8.6-10.4) mg/dl Phosphorus 3.7 (2.5-4.5) mg/dL Magnesium 1.6 (1.6-2.3) mg/dL Total Bilirubin 5.4 H (0.2-1.3) mg/dL AST 28 (14-36) U/L ALT 17 (9-52) U/L Alkaline Phosphatase 94 (38-126) U/L Total Protein 5.3 L (6.3-8.3) g/dL Albumin 2.4 L (3.5-5.0) g/dL Globulin 2.8 (2.2-3.9) gm/dL Albumin/Globulin Ratio 0.9 L (1.0-2.1) Arterial Blood Potassium (3.6-5.2) mmol/L 03/17/18 03/17/18 03/16/18 Range/Units 05:22 04:30 23:38 WBC (4.8-10.8) K/uL RBC (3.80-5.20) Mil/uL Hgb (11.0-16.0) g/dL Hct (34.0-47.0) % MCV (81.0-99.0) fL MCH (27.0-31.0) pg MCHC (33.0-37.0) g/dL RDW (11.5-14.5) % Plt Count (130-400) K/uL MPV (7.2-11.7) fL Neut % (Auto) (50.0-75.0) % Lymph % (Auto) (20.0-40.0) % Lynn % (Auto) (0.0-10.0) % Eos % (Auto) (0.0-4.0) % Baso % (Auto) (0.0-2.0) % Neut # (Auto) (1.8-7.0) K/uL Lymph # (Auto) (1.0-4.3) K/uL Lynn # (Auto) (0.0-0.8) K/uL Eos # (Auto) (0.0-0.7) K/uL Baso # (Auto) (0.0-0.2) K/uL APTT (21-34) SECONDS Puncture Site Rr pCO2 36 (35-45) mm/Hg pO2 96 (80-100) mm/Hg HCO3 20.9 L (21-28) mmol/L ABG pH 7.35 (7.35-7.45) ABG Total CO2 21.0 L (22-28) mmol/L ABG O2 Saturation 98.7 H (95-98) % ABG Base Excess -5.1 L (-2.0-3.0) mmol/L Michele Test Pos ABG Potassium 3.1 L (3.6-5.2) mmol/L A-a O2 Difference 216.0 mm/Hg Respiratory Index 2.3 Sodium 143.0 (132-148) mmol/l Chloride 109.0 H (98-107) mmol/L Glucose 140 H (65-105) mg/dl Lactate 3.6 H (0.7-2.1) mmol/L Vent Mode Simv/ps Mechanical Rate 10 FiO2 50.0 % Tidal Volume 450 PEEP 5 Pressure Support 10 Potassium (3.6-5.2) mmol/L Carbon Dioxide (22-30) mmol/L Anion Gap (10-20) BUN (7-17) mg/dL Creatinine (0.7-1.2) mg/dL Est GFR ( Amer) Est GFR (Non-Af Amer) POC Glucose (mg/dL) 141 H 144 H (65-110) mg/dL Random Glucose (65-105) mg/dL Calcium (8.6-10.4) mg/dl Phosphorus (2.5-4.5) mg/dL Magnesium (1.6-2.3) mg/dL Total Bilirubin (0.2-1.3) mg/dL AST (14-36) U/L ALT (9-52) U/L Alkaline Phosphatase (38-126) U/L Total Protein (6.3-8.3) g/dL Albumin (3.5-5.0) g/dL Globulin (2.2-3.9) gm/dL Albumin/Globulin Ratio (1.0-2.1) Arterial Blood Potassium 3.1 L (3.6-5.2) mmol/L 03/16/18 03/16/18 Range/Units 18:19 12:03 WBC (4.8-10.8) K/uL RBC (3.80-5.20) Mil/uL Hgb (11.0-16.0) g/dL Hct (34.0-47.0) % MCV (81.0-99.0) fL MCH (27.0-31.0) pg MCHC (33.0-37.0) g/dL RDW (11.5-14.5) % Plt Count (130-400) K/uL MPV (7.2-11.7) fL Neut % (Auto) (50.0-75.0) % Lymph % (Auto) (20.0-40.0) % Lynn % (Auto) (0.0-10.0) % Eos % (Auto) (0.0-4.0) % Baso % (Auto) (0.0-2.0) % Neut # (Auto) (1.8-7.0) K/uL Lymph # (Auto) (1.0-4.3) K/uL Lynn # (Auto) (0.0-0.8) K/uL Eos # (Auto) (0.0-0.7) K/uL Baso # (Auto) (0.0-0.2) K/uL APTT (21-34) SECONDS Puncture Site pCO2 (35-45) mm/Hg pO2 (80-100) mm/Hg HCO3 (21-28) mmol/L ABG pH (7.35-7.45) ABG Total CO2 (22-28) mmol/L ABG O2 Saturation (95-98) % ABG Base Excess (-2.0-3.0) mmol/L Michele Test ABG Potassium (3.6-5.2) mmol/L A-a O2 Difference mm/Hg Respiratory Index Sodium (132-148) mmol/l Chloride (98-107) mmol/L Glucose (65-105) mg/dl Lactate (0.7-2.1) mmol/L Vent Mode Mechanical Rate FiO2 % Tidal Volume PEEP Pressure Support Potassium (3.6-5.2) mmol/L Carbon Dioxide (22-30) mmol/L Anion Gap (10-20) BUN (7-17) mg/dL Creatinine (0.7-1.2) mg/dL Est GFR ( Amer) Est GFR (Non-Af Amer) POC Glucose (mg/dL) 160 H 155 H (65-110) mg/dL Random Glucose (65-105) mg/dL Calcium (8.6-10.4) mg/dl Phosphorus (2.5-4.5) mg/dL Magnesium (1.6-2.3) mg/dL Total Bilirubin (0.2-1.3) mg/dL AST (14-36) U/L ALT (9-52) U/L Alkaline Phosphatase (38-126) U/L Total Protein (6.3-8.3) g/dL Albumin (3.5-5.0) g/dL Globulin (2.2-3.9) gm/dL Albumin/Globulin Ratio (1.0-2.1) Arterial Blood Potassium (3.6-5.2) mmol/L Laboratory Results - last 24 hr 03/16/18 03/16/18 03/16/18 12:03 18:19 23:38 WBC RBC Hgb Hct MCV MCH MCHC RDW Plt Count MPV Neut % (Auto) Lymph % (Auto) Lynn % (Auto) Eos % (Auto) Baso % (Auto) Neut # (Auto) Lymph # (Auto) Lynn # (Auto) Eos # (Auto) Baso # (Auto) APTT Puncture Site pCO2 pO2 HCO3 ABG pH ABG Total CO2 ABG O2 Saturation ABG Base Excess Michele Test ABG Potassium A-a O2 Difference Respiratory Index Sodium Chloride Glucose Lactate Vent Mode Mechanical Rate FiO2 Tidal Volume PEEP Pressure Support Potassium Carbon Dioxide Anion Gap BUN Creatinine Est GFR ( Amer) Est GFR (Non-Af Amer) POC Glucose (mg/dL) 155 H 160 H 144 H Random Glucose Calcium Phosphorus Magnesium Total Bilirubin AST ALT Alkaline Phosphatase Total Protein Albumin Globulin Albumin/Globulin Ratio Arterial Blood Potassium 03/17/18 03/17/18 03/17/18 04:30 05:22 06:03 WBC RBC Hgb Hct MCV MCH MCHC RDW Plt Count MPV Neut % (Auto) Lymph % (Auto) Lynn % (Auto) Eos % (Auto) Baso % (Auto) Neut # (Auto) Lymph # (Auto) Lynn # (Auto) Eos # (Auto) Baso # (Auto) APTT Puncture Site Rr pCO2 36 pO2 96 HCO3 20.9 L ABG pH 7.35 ABG Total CO2 21.0 L ABG O2 Saturation 98.7 H ABG Base Excess -5.1 L Michele Test Pos ABG Potassium 3.1 L A-a O2 Difference 216.0 Respiratory Index 2.3 Sodium 143.0 140 Chloride 109.0 H 109 H Glucose 140 H Lactate 3.6 H Vent Mode Simv/ps Mechanical Rate 10 FiO2 50.0 Tidal Volume 450 PEEP 5 Pressure Support 10 Potassium 3.4 L Carbon Dioxide 19 L Anion Gap 16 BUN 27 H Creatinine 0.7 Est GFR ( Amer) > 60 Est GFR (Non-Af Amer) > 60 POC Glucose (mg/dL) 141 H Random Glucose 137 H Calcium 7.4 L Phosphorus 3.7 Magnesium 1.6 Total Bilirubin 5.4 H AST 28 ALT 17 Alkaline Phosphatase 94 Total Protein 5.3 L Albumin 2.4 L Globulin 2.8 Albumin/Globulin Ratio 0.9 L Arterial Blood Potassium 3.1 L 03/17/18 03/17/18 06:05 06:05 WBC 13.1 H RBC 2.94 L Hgb 9.1 L Hct 27.9 L MCV 94.7 MCH 30.9 MCHC 32.6 L RDW 16.4 H Plt Count 184 MPV 11.3 Neut % (Auto) 66.7 Lymph % (Auto) 27.3 Lynn % (Auto) 3.8 Eos % (Auto) 1.5 Baso % (Auto) 0.7 Neut # (Auto) 8.7 H Lymph # (Auto) 3.6 Lynn # (Auto) 0.5 Eos # (Auto) 0.2 Baso # (Auto) 0.1 APTT 122 H* D Puncture Site pCO2 pO2 HCO3 ABG pH ABG Total CO2 ABG O2 Saturation ABG Base Excess Michele Test ABG Potassium A-a O2 Difference Respiratory Index Sodium Chloride Glucose Lactate Vent Mode Mechanical Rate FiO2 Tidal Volume PEEP Pressure Support Potassium Carbon Dioxide Anion Gap BUN Creatinine Est GFR ( Amer) Est GFR (Non-Af Amer) POC Glucose (mg/dL) Random Glucose Calcium Phosphorus Magnesium Total Bilirubin AST ALT Alkaline Phosphatase Total Protein Albumin Globulin Albumin/Globulin Ratio Arterial Blood Potassium Fingerstick Blood Sugar Results: 141 Critical Care Progress Note - Ventilator Checklist Head of Bed 30 Degrees: Yes - Vent Settings RESP RATE:: 20 FIO2:: 50 PEEP:: 5 - Extremities/Vascular Does the Patient have a Central Venous Catheter?: Yes Insertion Site: Femoral Vein (Right) - Nutrition Nutrition: Nutrition Category Date Time Status NPO Diet [DIET] Diets 03/06/18 Breakfast Active Assessment/Plan - Assessment and Plan (Free Text) Assessment: Patient is an 82 yo female with a 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 She has been in a mcc since this surgery. She presented to ED with nausea, vomiting, abdominal pain, and lethargy. CT A/P demonstrated significant ischemic bowel. Subsequent CT demonstrated several GI infarcts, including SMA, hepatic, and splenic. She has had 2 ex-laps with lysis of adhesions (03/06) and partial small bowel resection (03/11). Patient continues to be intubated. Her urine output continues to significantly decline despite Lasix drip, and she is becoming overall more edematous. Patient has NGT with intermittent suction and TPN. Plan: Neuro: - Monitor neuro status- presently awake and responsive - Precedex 0.2 mg/kg/hr IV CV: - R femoral TLC - Off pressors- hemodynamically stable - Monitor vitals- episode of Afib, now sinus tachycardia (90s-100s) Pulm: Fluid overload - Intubated - ABG: pH 7.35, pCO2 36, pO2 96 - CXR: mod-severe venous congestion, dense confluent airspace opacification in mid-lower lungs, prominent - Lasix drip GI: Ischemic bowel - NPO - NGT to suction - TPN QOD - Dilaudid 0.25 mg IV Q4H PRN - CT A/P 03/06 (pre-op): ischemic small bowel, extensive pneumatosis intestinalis, mesenteric venous gas, intrahepatic portal venous gas, ascites - CTA A/P 03/07: hepatic infarct, splenic infarcts, branch of SMA obstructed - CT A/P 03/10: small and large bowel wall thickening consistent with ischemic bowel, free intraperitoneal air, interval progressive increase in extensive SQ gas/air consistent with SQ emphysema, extensive anasarca - GI consulted, - Hem/onc consulted, - Surgery consulted, - s/p 2 ex-laps - Plan for Angiogram today : - I's & O's - Urine output- 2605 mL over last 24 hrs - Lasix drip - Albumin 5% drip - Replete electrolytes PRN Endo: T2DM - Maintain euglycemia - Hypoglycemia protocol - Accuchecks Q6H with ISS and insulin in TPN Heme: - Heparin drip - Monitor H&H- Hgb stable (9.1) - Monitor PT/INR/PTT - Hem/onc consulted, ID: - Tmax: 101 - LA improving 3.6) - Leukocytosis (10.1 ->13.1) - Trending up - Trach Cx: Klebsiella - Blood Cx: no growth - Meropenem 500 mg IV Q8H (started 03/10) - Flagyl 500 mg IV Q8H (started 03/12) - ID consulted, PPx: VTE: heparin drip GI: PTX 40 mg IV Q12H Code status: full code- palliative consulted Case discussed with attending, Dr. Haywood. Rivas Cooley, PGY-1 - Date & Time Date: 03/17/18 Time: 11:15
[2018-03-17] MEDS: Magnesium Sulfate 1 gm in D5W 1 GM/100 ML BAG IVPB SCH ×2 (11:27→12:00)
[2018-03-17] MEDS ORDERED: TPN #6 IV ONE (18:00)
[2018-03-17] MEDS: HYDROmorphone 0.5 mg/0.5 ml ISec IVP PRN (18:29)
--- NOTE | 2018-03-17 19:04 | CP.PCM.PN ---
Subjective - Date & Time of Evaluation Date of Evaluation: 03/17/18 Time of Evaluation: 12:00 - Subjective Subjective: clinically same Objective - Vital Signs/Intake and Output Vital Signs (last 24 hours): Temp Pulse Resp BP Pulse Ox 98.7 F 105 H 20 149/52 L 98 03/17/18 12:00 03/17/18 13:08 03/17/18 13:08 03/17/18 13:08 03/17/18 13:08 Intake and Output: 03/17/18 03/18/18 18:59 06:59 Intake Total 1090.6 Output Total 0 Balance 1090.6 - Medications Medications: Current Medications Dextrose (Dextrose 50% Inj) 0 ml IV STAT PRN; Protocol PRN Reason: Hypoglycemia Protocol Last Admin: 03/11/18 00:13 Dose: 50 ml Dextrose (Glutose 15) 0 gm PO ONCE PRN; Protocol PRN Reason: Hypoglycemia Protocol Glucagon (Glucagen Diagnostic Kit) 0 mg IM STAT PRN; Protocol PRN Reason: Hypoglycemia Protocol Hydromorphone HCl (Dilaudid) 0.25 mg IVP Q4H PRN PRN Reason: Pain, severe (8-10) Last Admin: 03/17/18 18:29 Dose: 0.25 mg Heparin Sodium/Sodium Chloride (Heparin 95732 Units/250ml 1/2 Normal Saline) 25,000 units in 250 mls @ 9.54 mls/hr IV .Q24H PRN; Protocol PRN Reason: ADJUST RATE PER PROTOCOL Last Titration: 03/17/18 08:21 Dose: 9.13 units/kg/hr, 8.71 mls/hr Meropenem 500 mg/ Sodium (Chloride) 100 mls @ 100 mls/hr IVPB Q8H ARPIT; Protocol Last Admin: 03/17/18 17:00 Dose: 100 mls/hr Metronidazole (Flagyl) 500 mg in 100 mls @ 100 mls/hr IVPB Q8H ARP[facility]; Protocol Last Admin: 03/17/18 14:29 Dose: 100 mls/hr Dexmedetomidine HCl 200 mcg/ (Sodium Chloride) 50 mls @ 4.92 mls/hr IV TITR ARPIT; Protocol Multivitamins/Vitamin C 10 ml/Chromium/Copper/Manganese/Zinc 1 ml/ Insulin Human Regular 10 unit/ Potassium Chloride 20 meq/ Magnesium Sulfate 1 gm/ Amino Acids/Electrolytes/Dextrose 1,023.1 mls @ 42 mls/hr IV .Q24H ONE Stop: 03/18/18 17:59 Last Admin: 03/17/18 18:11 Dose: 42 mls/hr Insulin Aspart (Novolog) 0 unit SC Q6 ARPIT; Protocol Last Admin: 03/17/18 18:00 Dose: Not Given Levothyroxine Sodium (Synthroid) 75 mcg IVP DAILY ARPIT Last Admin: 03/17/18 09:34 Dose: 75 mcg Pantoprazole Sodium (Protonix Inj) 40 mg IVP Q12H [facility]PIT Last Admin: 03/17/18 09:35 Dose: 40 mg Potassium Chloride (K-Dur 20 Meq Er Tab) 40 meq PO BRK ARPIT Vitamin A (Vitamin A & D Oint Ud Foilpak) 0.5 ea TOP Q4 PRN PRN Reason: Lip dryness Last Admin: 03/15/18 21:39 Dose: 0.5 ea - Labs Labs: 03/17/18 06:05 03/17/18 06:03 PT 15.7 SECONDS (9.7-12.2) H 03/11/18 04:15 INR 1.4 03/11/18 04:15 APTT 67 SECONDS (21-34) H D 03/17/18 14:29
[2018-03-17] MEDS: Heparin25000 units/250ml 1/2NS 25,000 UNITS/250 ML BAG IV PRN (21:15)
[2018-03-18] MEDS: HYDROmorphone 0.5 mg/0.5 ml ISec IVP PRN ×2 (00:07→20:56)
[2018-03-18] MEDS: (Novolog) Insulin Aspart, Recombinant 100 u/ml 10 ml vial SC SCH ×4 (00:11→18:00)
[2018-03-18] MEDS: Meropenem 500 MG in Sodium Chloride 0.9% 100 ML IVPB SCH ×3 (01:00→17:19)
[2018-03-18 05:55] LABS: ABG ALLEN TEST POS; ARTERIAL BLOOD GAS HCO3 22.9 mmol/L (21-28); ARTERIAL BLOOD GAS O2 SAT 99.2 % (95-98); ARTERIAL BLOOD GAS PCO2 26 mm/Hg (35-45); ARTERIAL BLOOD GAS PH 7.48 (7.35-7.45); ARTERIAL BLOOD GAS PO2 90 mm/Hg (80-100); ARTERIAL BLOOD GAS TCO2 20.2 mmol/L (22-28)
[2018-03-18 06:41] LABS: BASO # 0.1 K/uL (0.0-0.2); BASO % 0.5 % (0.0-2.0); EOS # 0.1 K/uL (0.0-0.7); EOS % 0.5 % (0.0-4.0); HEMOGLOBIN 8.6 g/dL (11.0-16.0); LYMPH # 2.7 K/uL (1.0-4.3); LYMPH % 24.2 % (20.0-40.0); MEAN CELL VOLUME 92.4 fL (81.0-99.0); MEAN CORPUSCULAR HEMOGLOBIN 30.5 pg (27.0-31.0); MEAN PLATELET VOLUME 11.7 fL (7.2-11.7); MONO # 0.7 K/uL (0.0-0.8); MONO % 5.9 % (0.0-10.0); NEUT # 7.8 K/uL (1.8-7.0); NEUT % 68.9 % (50.0-75.0); NRBC % 0.1 % (0.0-2.0); RBC 2.82 Mil/uL (3.80-5.20); RED CELL DISTRIBUTION WIDTH 16.2 % (11.5-14.5); WHITE BLOOD COUNT 11.3 K/uL (4.8-10.8)
[2018-03-18 06:49] LABS: ALB/GLOB RATIO 0.7 (1.0-2.1); ALBUMIN 2.1 g/dL (3.5-5.0); ALT/SGPT 17 U/L (9-52); AST/SGOT 26 U/L (14-36); BLOOD UREA NITROGEN 21 mg/dL (7-17); CALCIUM 7.4 mg/dl (8.6-10.4); GFR NON-AFRICAN AMERICAN > 60
[2018-03-18] MEDS: metroNIDAZOLE IV 500 mg/100 ml 500 MG/100 ML BAG IVPB SCH ×3 (07:00→22:19)
--- NOTE | 2018-03-18 07:51 | CP.CCUPN ---
<Rivas Cooley - Last Filed: 03/18/18 18:29> CCU Subjective - Physician Review Subjective (Free Text): 03/17/18 11:08 Patient was seen and examined this morning. Patient remains intubated. Patient is not agitated. She is awake and responsive. She is not on vasopressors and hemodynamically stable. Her urine output is 2600cc overnight. 03/18/18 11:37 Patient was seen and examined this morning. Patient is on CPAP and hemodynamically stable. Critical Care Time Spent (in minutes): 35 CCU Objective - Vital Signs / Intake & Output Vital Signs (Last 4 hours): Vital Signs Temp Pulse Resp BP Pulse Ox 03/18/18 06:08 103 H 22 124/44 L 100 03/18/18 06:00 111 H 18 97 03/18/18 05:08 107 H 21 143/50 L 100 03/18/18 05:00 108 H 22 100 03/18/18 04:08 107 H 20 148/55 L 100 03/18/18 04:00 99.5 F 109 H 24 100 Intake and Output (Last 8hrs): Intake & Output 03/17/18 03/18/18 03/18/18 22:59 06:59 14:59 Intake Total 601.1 405.6 50.7 Output Total 1385 590 30 Balance -783.9 -184.4 20.7 Weight 204 lb 0.1 oz Intake: IV 180 Intake, IV Amount 421.1 405.6 50.7 Left Wrist 85.1 69.6 8.7 Right Distal Port 336 336 42 Internal Jugular Output: Drainage 350 260 0 LEFT JEJUNOSTOMY 0 10 0 Right Nare 50 50 abdominal wound drain 300 200 Urine 1035 330 30 Urethral (Tran) 1035 330 30 Other: # Bowel Movements 0 0 0 - Physical Exam Head: Positive for: Atraumatic, Normocephalic Pupils: Positive for: PERRL Extroacular Muscles: Positive for: EOMI Nose (External): Positive for: Other (NGT) Respiratory/Chest: Positive for: Clear to Auscultation, Other (on vent, intubated) Cardiovascular: Positive for: Normal S1, S2. Negative for: Murmurs Abdomen: Positive for: Tenderness (oozing from abdominal surgical site.), Distention Upper Extremity: Positive for: Edema Lower Extremity: Positive for: Edema, Other (R TLC) Neurological: Positive for: Other (sedated) Skin: Positive for: Warm, Normal Color Psychiatric: Positive for: Alert - Medications Active Medications: Active Medications Generic Name Dose Route Start Last Admin Trade Name Freq PRN Reason Stop Dose Admin Dextrose 0 ml 03/06/18 15:02 03/11/18 00:13 Dextrose 50% Inj IV 50 ml STAT PRN Administration Hypoglycemia Protocol Protocol Dextrose 0 gm 03/06/18 15:02 Glutose 15 PO ONCE PRN Hypoglycemia Protocol Protocol Glucagon 0 mg 03/06/18 15:02 Glucagen Diagnostic Kit IM STAT PRN Hypoglycemia Protocol Protocol Hydromorphone HCl 0.25 mg 03/10/18 20:35 03/18/18 00:07 Dilaudid IVP 0.25 mg Q4H PRN Administration Pain, severe (8-10) Heparin Sodium/Sodium Chloride 25,000 units in 250 mls @ 9.54 mls/hr 03/10/18 23:20 03/17/18 21:15 Heparin 95196 Units/250ml 1/2 Normal Saline IV 9.13 units/kg/hr .Q24H PRN 8.71 mls/hr ADJUST RATE PER PROTOCOL Administration Protocol 10 UNITS/KG/HR Meropenem 500 mg/ Sodium 100 mls @ 100 mls/hr 03/12/18 17:00 03/18/18 01:00 Chloride IVPB 100 mls/hr Q8H [facility] Administration Protocol Metronidazole 500 mg in 100 mls @ 100 mls/hr 03/13/18 15:00 03/17/18 22:43 Flagyl IVPB 100 mls/hr Q8H [facility] Administration Protocol Dexmedetomidine HCl 200 mcg/ 50 mls @ 4.92 mls/hr 03/17/18 10:00 Sodium Chloride IV TITR [facility] Protocol 0.2 MCG/KG/HR Multivitamins/Vitamin C 10 ml/ 1,023.1 mls @ 42 mls/hr 03/17/18 18:00 03/17/18 18:11 Chromium/Copper/Manganese/ IV 03/18/18 17:59 42 mls/hr Zinc 1 ml/ Insulin Human .Q24H ONE Administration Regular 10 unit/ Potassium Chloride 20 meq/ Magnesium Sulfate 1 gm/ Amino Acids/ Electrolytes/Dextrose Insulin Aspart 0 unit 03/15/18 12:00 03/18/18 06:00 Novolog SC Not Given Q6 [facility] Protocol Levothyroxine Sodium 75 mcg 03/15/18 17:00 03/17/18 09:34 Synthroid IVP 75 mcg DAILY [facility] Administration Pantoprazole Sodium 40 mg 03/07/18 10:00 03/17/18 22:45 Protonix Inj IVP 40 mg Q12H [facility] Administration Potassium Chloride 40 meq 03/17/18 17:00 K-Dur 20 Meq Er Tab PO BRK [facility] Vitamin A 0.5 ea 03/10/18 20:33 03/15/18 21:39 Vitamin A & D Oint Ud Foilpak TOP 0.5 ea Q4 PRN Administration Lip dryness - Patient Studies Lab Studies: Microbiology Studies 03/17/18 00:52 Blood Culture - Preliminary Blood NO GROWTH AFTER 24 HOURS 03/17/18 00:52 Blood Culture - Preliminary Blood NO GROWTH AFTER 24 HOURS Lab Studies 03/18/18 03/18/18 03/18/18 Range/Units 06:32 06:32 06:30 WBC 11.3 H (4.8-10.8) K/uL RBC 2.82 L (3.80-5.20) Mil/uL Hgb 8.6 L (11.0-16.0) g/dL Hct 26.1 L (34.0-47.0) % MCV 92.4 D (81.0-99.0) fL MCH 30.5 (27.0-31.0) pg MCHC 33.0 (33.0-37.0) g/dL RDW 16.2 H (11.5-14.5) % Plt Count 241 (130-400) K/uL MPV 11.7 (7.2-11.7) fL Neut % (Auto) 68.9 (50.0-75.0) % Lymph % (Auto) 24.2 (20.0-40.0) % Garvin % (Auto) 5.9 (0.0-10.0) % Eos % (Auto) 0.5 (0.0-4.0) % Baso % (Auto) 0.5 (0.0-2.0) % Neut # (Auto) 7.8 H (1.8-7.0) K/uL Lymph # (Auto) 2.7 (1.0-4.3) K/uL Garvin # (Auto) 0.7 (0.0-0.8) K/uL Eos # (Auto) 0.1 (0.0-0.7) K/uL Baso # (Auto) 0.1 (0.0-0.2) K/uL APTT 82 H D (21-34) SECONDS Puncture Site pCO2 (35-45) mm/Hg pO2 (80-100) mm/Hg HCO3 (21-28) mmol/L ABG pH (7.35-7.45) ABG Total CO2 (22-28) mmol/L ABG O2 Saturation (95-98) % ABG Base Excess (-2.0-3.0) mmol/L Michele Test ABG Potassium (3.6-5.2) mmol/L A-a O2 Difference mm/Hg Respiratory Index Sodium 141 (132-148) mmol/l Chloride 110 H (98-107) mmol/L Glucose (65-105) mg/dl Lactate (0.7-2.1) mmol/L Vent Mode Mechanical Rate FiO2 % Tidal Volume PEEP Crit Value Called To Crit Value Called By Crit Value Read Back Blood Gas Notified Time Potassium 3.5 L (3.6-5.2) mmol/L Carbon Dioxide 19 L (22-30) mmol/L Anion Gap 15 (10-20) BUN 21 H (7-17) mg/dL Creatinine 0.6 L (0.7-1.2) mg/dL Est GFR ( Amer) > 60 Est GFR (Non-Af Amer) > 60 POC Glucose (mg/dL) (65-110) mg/dL Random Glucose 118 H (65-105) mg/dL Calcium 7.4 L (8.6-10.4) mg/dl Phosphorus 3.4 (2.5-4.5) mg/dL Magnesium 1.8 (1.6-2.3) mg/dL Total Bilirubin 4.9 H (0.2-1.3) mg/dL AST 26 (14-36) U/L ALT 17 (9-52) U/L Alkaline Phosphatase 86 (38-126) U/L Total Protein 5.0 L (6.3-8.3) g/dL Albumin 2.1 L (3.5-5.0) g/dL Globulin 2.9 (2.2-3.9) gm/dL Albumin/Globulin Ratio 0.7 L (1.0-2.1) Arterial Blood Potassium (3.6-5.2) mmol/L 03/18/18 03/17/18 03/17/18 Range/Units 05:17 23:47 21:11 WBC (4.8-10.8) K/uL RBC (3.80-5.20) Mil/uL Hgb (11.0-16.0) g/dL Hct (34.0-47.0) % MCV (81.0-99.0) fL MCH (27.0-31.0) pg MCHC (33.0-37.0) g/dL RDW (11.5-14.5) % Plt Count (130-400) K/uL MPV (7.2-11.7) fL Neut % (Auto) (50.0-75.0) % Lymph % (Auto) (20.0-40.0) % Garvin % (Auto) (0.0-10.0) % Eos % (Auto) (0.0-4.0) % Baso % (Auto) (0.0-2.0) % Neut # (Auto) (1.8-7.0) K/uL Lymph # (Auto) (1.0-4.3) K/uL Garvin # (Auto) (0.0-0.8) K/uL Eos # (Auto) (0.0-0.7) K/uL Baso # (Auto) (0.0-0.2) K/uL APTT 76 H D (21-34) SECONDS Puncture Site Rr pCO2 26 L (35-45) mm/Hg pO2 90 (80-100) mm/Hg HCO3 22.9 (21-28) mmol/L ABG pH 7.48 H (7.35-7.45) ABG Total CO2 20.2 L (22-28) mmol/L ABG O2 Saturation 99.2 H (95-98) % ABG Base Excess -2.6 L (-2.0-3.0) mmol/L Michele Test Pos ABG Potassium 3.4 L (3.6-5.2) mmol/L A-a O2 Difference 234.0 mm/Hg Respiratory Index 2.6 Sodium 142.0 (132-148) mmol/l Chloride 114.0 H (98-107) mmol/L Glucose 118 H (65-105) mg/dl Lactate 4.7 H* (0.7-2.1) mmol/L Vent Mode Prvc Mechanical Rate 10 FiO2 50.0 % Tidal Volume 450 PEEP 5 Crit Value Called To Debbi rn Crit Value Called By [employer] Crit Value Read Back Y Blood Gas Notified Time 554 Potassium (3.6-5.2) mmol/L Carbon Dioxide (22-30) mmol/L Anion Gap (10-20) BUN (7-17) mg/dL Creatinine (0.7-1.2) mg/dL Est GFR ( Amer) Est GFR (Non-Af Amer) POC Glucose (mg/dL) 80 (65-110) mg/dL Random Glucose (65-105) mg/dL Calcium (8.6-10.4) mg/dl Phosphorus (2.5-4.5) mg/dL Magnesium (1.6-2.3) mg/dL Total Bilirubin (0.2-1.3) mg/dL AST (14-36) U/L ALT (9-52) U/L Alkaline Phosphatase (38-126) U/L Total Protein (6.3-8.3) g/dL Albumin (3.5-5.0) g/dL Globulin (2.2-3.9) gm/dL Albumin/Globulin Ratio (1.0-2.1) Arterial Blood Potassium 3.4 L (3.6-5.2) mmol/L 03/17/18 03/17/18 03/17/18 Range/Units 17:42 14:29 12:02 WBC (4.8-10.8) K/uL RBC (3.80-5.20) Mil/uL Hgb (11.0-16.0) g/dL Hct (34.0-47.0) % MCV (81.0-99.0) fL MCH (27.0-31.0) pg MCHC (33.0-37.0) g/dL RDW (11.5-14.5) % Plt Count (130-400) K/uL MPV (7.2-11.7) fL Neut % (Auto) (50.0-75.0) % Lymph % (Auto) (20.0-40.0) % Garvin % (Auto) (0.0-10.0) % Eos % (Auto) (0.0-4.0) % Baso % (Auto) (0.0-2.0) % Neut # (Auto) (1.8-7.0) K/uL Lymph # (Auto) (1.0-4.3) K/uL Garvin # (Auto) (0.0-0.8) K/uL Eos # (Auto) (0.0-0.7) K/uL Baso # (Auto) (0.0-0.2) K/uL APTT 67 H D (21-34) SECONDS Puncture Site pCO2 (35-45) mm/Hg pO2 (80-100) mm/Hg HCO3 (21-28) mmol/L ABG pH (7.35-7.45) ABG Total CO2 (22-28) mmol/L ABG O2 Saturation (95-98) % ABG Base Excess (-2.0-3.0) mmol/L Michele Test ABG Potassium (3.6-5.2) mmol/L A-a O2 Difference mm/Hg Respiratory Index Sodium (132-148) mmol/l Chloride (98-107) mmol/L Glucose (65-105) mg/dl Lactate (0.7-2.1) mmol/L Vent Mode Mechanical Rate FiO2 % Tidal Volume PEEP Crit Value Called To Crit Value Called By Crit Value Read Back Blood Gas Notified Time Potassium (3.6-5.2) mmol/L Carbon Dioxide (22-30) mmol/L Anion Gap (10-20) BUN (7-17) mg/dL Creatinine (0.7-1.2) mg/dL Est GFR ( Amer) Est GFR (Non-Af Amer) POC Glucose (mg/dL) 137 H 156 H (65-110) mg/dL Random Glucose (65-105) mg/dL Calcium (8.6-10.4) mg/dl Phosphorus (2.5-4.5) mg/dL Magnesium (1.6-2.3) mg/dL Total Bilirubin (0.2-1.3) mg/dL AST (14-36) U/L ALT (9-52) U/L Alkaline Phosphatase (38-126) U/L Total Protein (6.3-8.3) g/dL Albumin (3.5-5.0) g/dL Globulin (2.2-3.9) gm/dL Albumin/Globulin Ratio (1.0-2.1) Arterial Blood Potassium (3.6-5.2) mmol/L 03/17/18 Range/Units 05:22 WBC (4.8-10.8) K/uL RBC (3.80-5.20) Mil/uL Hgb (11.0-16.0) g/dL Hct (34.0-47.0) % MCV (81.0-99.0) fL MCH (27.0-31.0) pg MCHC (33.0-37.0) g/dL RDW (11.5-14.5) % Plt Count (130-400) K/uL MPV (7.2-11.7) fL Neut % (Auto) (50.0-75.0) % Lymph % (Auto) (20.0-40.0) % Garvin % (Auto) (0.0-10.0) % Eos % (Auto) (0.0-4.0) % Baso % (Auto) (0.0-2.0) % Neut # (Auto) (1.8-7.0) K/uL Lymph # (Auto) (1.0-4.3) K/uL Garvin # (Auto) (0.0-0.8) K/uL Eos # (Auto) (0.0-0.7) K/uL Baso # (Auto) (0.0-0.2) K/uL APTT (21-34) SECONDS Puncture Site pCO2 (35-45) mm/Hg pO2 (80-100) mm/Hg HCO3 (21-28) mmol/L ABG pH (7.35-7.45) ABG Total CO2 (22-28) mmol/L ABG O2 Saturation (95-98) % ABG Base Excess (-2.0-3.0) mmol/L Michele Test ABG Potassium (3.6-5.2) mmol/L A-a O2 Difference mm/Hg Respiratory Index Sodium (132-148) mmol/l Chloride (98-107) mmol/L Glucose (65-105) mg/dl Lactate (0.7-2.1) mmol/L Vent Mode Mechanical Rate FiO2 % Tidal Volume PEEP Crit Value Called To Crit Value Called By Crit Value Read Back Blood Gas Notified Time Potassium (3.6-5.2) mmol/L Carbon Dioxide (22-30) mmol/L Anion Gap (10-20) BUN (7-17) mg/dL Creatinine (0.7-1.2) mg/dL Est GFR ( Amer) Est GFR (Non-Af Amer) POC Glucose (mg/dL) 141 H (65-110) mg/dL Random Glucose (65-105) mg/dL Calcium (8.6-10.4) mg/dl Phosphorus (2.5-4.5) mg/dL Magnesium (1.6-2.3) mg/dL Total Bilirubin (0.2-1.3) mg/dL AST (14-36) U/L ALT (9-52) U/L Alkaline Phosphatase (38-126) U/L Total Protein (6.3-8.3) g/dL Albumin (3.5-5.0) g/dL Globulin (2.2-3.9) gm/dL Albumin/Globulin Ratio (1.0-2.1) Arterial Blood Potassium (3.6-5.2) mmol/L Laboratory Results - last 24 hr 03/17/18 03/17/18 03/17/18 05:22 12:02 14:29 WBC RBC Hgb Hct MCV MCH MCHC RDW Plt Count MPV Neut % (Auto) Lymph % (Auto) Garvin % (Auto) Eos % (Auto) Baso % (Auto) Neut # (Auto) Lymph # (Auto) Garvin # (Auto) Eos # (Auto) Baso # (Auto) APTT 67 H D Puncture Site pCO2 pO2 HCO3 ABG pH ABG Total CO2 ABG O2 Saturation ABG Base Excess Michele Test ABG Potassium A-a O2 Difference Respiratory Index Sodium Chloride Glucose Lactate Vent Mode Mechanical Rate FiO2 Tidal Volume PEEP Crit Value Called To Crit Value Called By Crit Value Read Back Blood Gas Notified Time Potassium Carbon Dioxide Anion Gap BUN Creatinine Est GFR ( Amer) Est GFR (Non-Af Amer) POC Glucose (mg/dL) 141 H 156 H Random Glucose Calcium Phosphorus Magnesium Total Bilirubin AST ALT Alkaline Phosphatase Total Protein Albumin Globulin Albumin/Globulin Ratio Arterial Blood Potassium 03/17/18 03/17/18 03/17/18 17:42 21:11 23:47 WBC RBC Hgb Hct MCV MCH MCHC RDW Plt Count MPV Neut % (Auto) Lymph % (Auto) Garvin % (Auto) Eos % (Auto) Baso % (Auto) Neut # (Auto) Lymph # (Auto) Garvin # (Auto) Eos # (Auto) Baso # (Auto) APTT 76 H D Puncture Site pCO2 pO2 HCO3 ABG pH ABG Total CO2 ABG O2 Saturation ABG Base Excess Michele Test ABG Potassium A-a O2 Difference Respiratory Index Sodium Chloride Glucose Lactate Vent Mode Mechanical Rate FiO2 Tidal Volume PEEP Crit Value Called To Crit Value Called By Crit Value Read Back Blood Gas Notified Time Potassium Carbon Dioxide Anion Gap BUN Creatinine Est GFR ( Amer) Est GFR (Non-Af Amer) POC Glucose (mg/dL) 137 H 80 Random Glucose Calcium Phosphorus Magnesium Total Bilirubin AST ALT Alkaline Phosphatase Total Protein Albumin Globulin Albumin/Globulin Ratio Arterial Blood Potassium 03/18/18 03/18/18 03/18/18 05:17 06:30 06:32 WBC 11.3 H RBC 2.82 L Hgb 8.6 L Hct 26.1 L MCV 92.4 D MCH 30.5 MCHC 33.0 RDW 16.2 H Plt Count 241 MPV 11.7 Neut % (Auto) 68.9 Lymph % (Auto) 24.2 Garvin % (Auto) 5.9 Eos % (Auto) 0.5 Baso % (Auto) 0.5 Neut # (Auto) 7.8 H Lymph # (Auto) 2.7 Garvin # (Auto) 0.7 Eos # (Auto) 0.1 Baso # (Auto) 0.1 APTT Puncture Site Rr pCO2 26 L pO2 90 HCO3 22.9 ABG pH 7.48 H ABG Total CO2 20.2 L ABG O2 Saturation 99.2 H ABG Base Excess -2.6 L Michele Test Pos ABG Potassium 3.4 L A-a O2 Difference 234.0 Respiratory Index 2.6 Sodium 142.0 141 Chloride 114.0 H 110 H Glucose 118 H Lactate 4.7 H* Vent Mode Prvc Mechanical Rate 10 FiO2 50.0 Tidal Volume 450 PEEP 5 Crit Value Called To Debbi freeman Crit Value Called By [employer] Crit Value Read Back Y Blood Gas Notified Time 554 Potassium 3.5 L Carbon Dioxide 19 L Anion Gap 15 BUN 21 H Creatinine 0.6 L Est GFR ( Amer) > 60 Est GFR (Non-Af Amer) > 60 POC Glucose (mg/dL) Random Glucose 118 H Calcium 7.4 L Phosphorus 3.4 Magnesium 1.8 Total Bilirubin 4.9 H AST 26 ALT 17 Alkaline Phosphatase 86 Total Protein 5.0 L Albumin 2.1 L Globulin 2.9 Albumin/Globulin Ratio 0.7 L Arterial Blood Potassium 3.4 L 03/18/18 06:32 WBC RBC Hgb Hct MCV MCH MCHC RDW Plt Count MPV Neut % (Auto) Lymph % (Auto) Garvin % (Auto) Eos % (Auto) Baso % (Auto) Neut # (Auto) Lymph # (Auto) Garvin # (Auto) Eos # (Auto) Baso # (Auto) APTT 82 H D Puncture Site pCO2 pO2 HCO3 ABG pH ABG Total CO2 ABG O2 Saturation ABG Base Excess Michele Test ABG Potassium A-a O2 Difference Respiratory Index Sodium Chloride Glucose Lactate Vent Mode Mechanical Rate FiO2 Tidal Volume PEEP Crit Value Called To Crit Value Called By Crit Value Read Back Blood Gas Notified Time Potassium Carbon Dioxide Anion Gap BUN Creatinine Est GFR ( Amer) Est GFR (Non-Af Amer) POC Glucose (mg/dL) Random Glucose Calcium Phosphorus Magnesium Total Bilirubin AST ALT Alkaline Phosphatase Total Protein Albumin Globulin Albumin/Globulin Ratio Arterial Blood Potassium Fingerstick Blood Sugar Results: 116 Critical Care Progress Note - Nutrition Nutrition: Nutrition Category Date Time Status NPO Diet [DIET] Diets 03/06/18 Breakfast Active Assessment/Plan - Assessment and Plan (Free Text) Assessment: Patient is an 82 yo female with a 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 She has been in a custodial since this surgery. She presented to ED with nausea, vomiting, abdominal pain, and lethargy. CT A/P demonstrated significant ischemic bowel. Subsequent CT demonstrated several GI infarcts, including SMA, hepatic, and splenic. She has had 2 ex-laps with lysis of adhesions (03/06) and partial small bowel resection (03/11). Patient continues to be intubated. Her urine output continues to significantly decline despite Lasix drip, and she is becoming overall more edematous. Patient has NGT with intermittent suction and TPN. Plan: Neuro: - Monitor neuro status CV: - R femoral TLC - Off pressors- hemodynamically stable - Monitor vitals- episode of Afib, now sinus tachycardia (90s-100s) Pulm: Fluid overload - Intubated - ABG: pH 7.48, pCO2 26, pO2 90, Lactate 4.7 - CXR: mod-severe venous congestion, dense confluent airspace opacification in mid-lower lungs, prominent GI: - NPO - NGT to suction - TPN with 10units of insulin - Dilaudid 0.25 mg IV Q4H PRN - CT A/P 03/06 (pre-op): ischemic small bowel, extensive pneumatosis intestinalis, mesenteric venous gas, intrahepatic portal venous gas, ascites - CTA A/P 03/07: hepatic infarct, splenic infarcts, branch of SMA obstructed - CT A/P 03/10: small and large bowel wall thickening consistent with ischemic bowel, free intraperitoneal air, interval progressive increase in extensive SQ gas/air consistent with SQ emphysema, extensive anasarca - GI consulted, - Hem/onc consulted, - Surgery consulted, - s/p 2 ex-laps - Plan for Angiogram to evaluate splanchnics circulation : - I's & O's - Urine output- 1365 mL over last 24 hrs - Replete electrolytes PRN Endo: T2DM - Maintain euglycemia - Hypoglycemia protocol - Accuchecks Q6H with ISS and insulin in TPN Heme: - Heparin drip - Monitor H&H- Hgb stable - Monitor PT/INR/PTT - Hem/onc consulted, ID: - Tmax: 99.7 - Leukocytosis (13.1-->11.3) - downtrending - Trach Cx: Klebsiella - Blood Cx: no growth - Meropenem 500 mg IV Q8H (started 03/10) - Flagyl 500 mg IV Q8H (started 03/12) - ID consulted, PPx: VTE: heparin drip GI: PTX 40 mg IV Q12H Code status: full code- palliative consulted Case discussed with attending, Dr. Júnior Cooley, PGY-1 <Gilberto Callejas S - Last Filed: 03/18/18 19:09> CCU Objective - Vital Signs / Intake & Output Vital Signs (Last 4 hours): Vital Signs Temp Pulse Resp BP Pulse Ox 03/18/18 17:07 102 H 18 132/46 L 100 03/18/18 17:00 98 H 21 100 03/18/18 16:07 97 H 21 123/36 L 100 03/18/18 16:00 99.8 F H 93 H 21 123/36 L 100 Intake and Output (Last 8hrs): Intake & Output 03/18/18 03/18/18 03/18/18 06:59 14:59 22:59 Intake Total 405.6 454.9 302.8 Output Total 590 340 70 Balance -184.4 114.9 232.8 Weight 204 lb 0.1 oz Intake: Intake, IV Amount 405.6 454.9 302.8 Left Wrist 69.6 60.9 34.8 Right Distal Port 336 294 168 Internal Jugular Right Medial Port 100 100 Internal Jugular Oral 0 0 Output: Drainage 260 100 LEFT JEJUNOSTOMY 10 0 Right Nare 50 100 abdominal wound drain 200 Urine 330 240 70 Urethral (Tran) 330 240 70 Other: # Bowel Movements 0 0 - Medications Active Medications: Active Medications Generic Name Dose Route Start Last Admin Trade Name Freq PRN Reason Stop Dose Admin Dextrose 0 ml 03/06/18 15:02 03/11/18 00:13 Dextrose 50% Inj IV 50 ml STAT PRN Administration Hypoglycemia Protocol Protocol Dextrose 0 gm 03/06/18 15:02 Glutose 15 PO ONCE PRN Hypoglycemia Protocol Protocol Glucagon 0 mg 03/06/18 15:02 Glucagen Diagnostic Kit IM STAT PRN Hypoglycemia Protocol Protocol Hydromorphone HCl 0.25 mg 03/10/18 20:35 03/18/18 00:07 Dilaudid IVP 0.25 mg Q4H PRN Administration Pain, severe (8-10) Heparin Sodium/Sodium Chloride 25,000 units in 250 mls @ 9.54 mls/hr 03/10/18 23:20 03/17/18 21:15 Heparin 23535 Units/250ml 1/2 Normal Saline IV 9.13 units/kg/hr .Q24H PRN 8.71 mls/hr ADJUST RATE PER PROTOCOL Administration Protocol 10 UNITS/KG/HR Meropenem 500 mg/ Sodium 100 mls @ 100 mls/hr 03/12/18 17:00 03/18/18 17:19 Chloride IVPB 100 mls/hr Q8H [facility] Administration Protocol Metronidazole 500 mg in 100 mls @ 100 mls/hr 03/13/18 15:00 03/18/18 14:15 Flagyl IVPB 100 mls/hr Q8H [facility] Administration Protocol Insulin Human Regular 10 unit/ 1,000.1 mls @ 42 mls/hr 03/18/18 18:00 Amino Acids/Electrolytes/ IV 03/19/18 17:48 Dextrose .[id number] [facility] Insulin Aspart 0 unit 03/15/18 12:00 03/18/18 12:23 Novolog SC Not Given Q6 [facility] Protocol Levothyroxine Sodium 75 mcg 03/15/18 17:00 03/18/18 11:41 Synthroid IVP 75 mcg DAILY [facility] Administration Pantoprazole Sodium 40 mg 03/07/18 10:00 03/18/18 09:45 Protonix Inj IVP 40 mg Q12H [facility] Administration Potassium Chloride 40 meq 03/17/18 17:00 K-Dur 20 Meq Er Tab PO BRK [facility] Vitamin A 0.5 ea 03/10/18 20:33 03/15/18 21:39 Vitamin A & D Oint Ud Foilpak TOP 0.5 ea Q4 PRN Administration Lip dryness - Patient Studies Lab Studies: Microbiology Studies 03/17/18 00:52 Blood Culture - Preliminary Blood NO GROWTH AFTER 24 HOURS 03/17/18 00:52 Blood Culture - Preliminary Blood NO GROWTH AFTER 24 HOURS Lab Studies 03/18/18 03/18/18 03/18/18 Range/Units 18:30 14:10 11:20 WBC (4.8-10.8) K/uL RBC (3.80-5.20) Mil/uL Hgb (11.0-16.0) g/dL Hct (34.0-47.0) % MCV (81.0-99.0) fL MCH (27.0-31.0) pg MCHC (33.0-37.0) g/dL RDW (11.5-14.5) % Plt Count (130-400) K/uL MPV (7.2-11.7) fL Neut % (Auto) (50.0-75.0) % Lymph % (Auto) (20.0-40.0) % Garvin % (Auto) (0.0-10.0) % Eos % (Auto) (0.0-4.0) % Baso % (Auto) (0.0-2.0) % Neut # (Auto) (1.8-7.0) K/uL Lymph # (Auto) (1.0-4.3) K/uL Garvin # (Auto) (0.0-0.8) K/uL Eos # (Auto) (0.0-0.7) K/uL Baso # (Auto) (0.0-0.2) K/uL APTT (21-34) SECONDS Puncture Site pCO2 (35-45) mm/Hg pO2 40 (80-100) mm/Hg HCO3 (21-28) mmol/L ABG pH (7.35-7.45) ABG Total CO2 (22-28) mmol/L ABG O2 Saturation (95-98) % ABG Base Excess (-2.0-3.0) mmol/L Michele Test ABG Potassium (3.6-5.2) mmol/L VBG pH 7.45 H (7.32-7.43) VBG pCO2 26 L (40-60) mmHg VBG HCO3 21.0 mmol/L VBG Total CO2 18.9 L (22-28) mmol/L VBG O2 Sat (Calc) 77.4 H (40-65) % VBG Base Excess -4.3 L (0.0-2.0) mmol/L VBG Potassium 2.7 L (3.6-5.2) mmol/L A-a O2 Difference mm/Hg Respiratory Index Sodium 145.0 (132-148) mmol/l Chloride 120.0 H (98-107) mmol/L Glucose (65-105) mg/dl Lactate 2.9 H (0.7-2.1) mmol/L Vent Mode Mechanical Rate FiO2 % Tidal Volume PEEP Crit Value Called To Crit Value Called By Crit Value Read Back Blood Gas Notified Time Potassium (3.6-5.2) mmol/L Carbon Dioxide (22-30) mmol/L Anion Gap (10-20) BUN (7-17) mg/dL Creatinine (0.7-1.2) mg/dL Est GFR ( Amer) Est GFR (Non-Af Amer) POC Glucose (mg/dL) 141 H 141 H (65-110) mg/dL Random Glucose (65-105) mg/dL Calcium (8.6-10.4) mg/dl Phosphorus (2.5-4.5) mg/dL Magnesium (1.6-2.3) mg/dL Total Bilirubin (0.2-1.3) mg/dL AST (14-36) U/L ALT (9-52) U/L Alkaline Phosphatase (38-126) U/L Total Protein (6.3-8.3) g/dL Albumin (3.5-5.0) g/dL Globulin (2.2-3.9) gm/dL Albumin/Globulin Ratio (1.0-2.1) Arterial Blood Potassium (3.6-5.2) mmol/L Venous Blood Potassium 2.7 L (3.6-5.2) mmol/L 03/18/18 03/18/18 03/18/18 Range/Units 06:40 06:32 06:32 WBC 11.3 H (4.8-10.8) K/uL RBC 2.82 L (3.80-5.20) Mil/uL Hgb 8.6 L (11.0-16.0) g/dL Hct 26.1 L (34.0-47.0) % MCV 92.4 D (81.0-99.0) fL MCH 30.5 (27.0-31.0) pg MCHC 33.0 (33.0-37.0) g/dL RDW 16.2 H (11.5-14.5) % Plt Count 241 (130-400) K/uL MPV 11.7 (7.2-11.7) fL Neut % (Auto) 68.9 (50.0-75.0) % Lymph % (Auto) 24.2 (20.0-40.0) % Garvin % (Auto) 5.9 (0.0-10.0) % Eos % (Auto) 0.5 (0.0-4.0) % Baso % (Auto) 0.5 (0.0-2.0) % Neut # (Auto) 7.8 H (1.8-7.0) K/uL Lymph # (Auto) 2.7 (1.0-4.3) K/uL Garvin # (Auto) 0.7 (0.0-0.8) K/uL Eos # (Auto) 0.1 (0.0-0.7) K/uL Baso # (Auto) 0.1 (0.0-0.2) K/uL APTT 82 H D (21-34) SECONDS Puncture Site pCO2 (35-45) mm/Hg pO2 (80-100) mm/Hg HCO3 (21-28) mmol/L ABG pH (7.35-7.45) ABG Total CO2 (22-28) mmol/L ABG O2 Saturation (95-98) % ABG Base Excess (-2.0-3.0) mmol/L Michele Test ABG Potassium (3.6-5.2) mmol/L VBG pH (7.32-7.43) VBG pCO2 (40-60) mmHg VBG HCO3 mmol/L VBG Total CO2 (22-28) mmol/L VBG O2 Sat (Calc) (40-65) % VBG Base Excess (0.0-2.0) mmol/L VBG Potassium (3.6-5.2) mmol/L A-a O2 Difference mm/Hg Respiratory Index Sodium (132-148) mmol/l Chloride (98-107) mmol/L Glucose (65-105) mg/dl Lactate (0.7-2.1) mmol/L Vent Mode Mechanical Rate FiO2 % Tidal Volume PEEP Crit Value Called To Crit Value Called By Crit Value Read Back Blood Gas Notified Time Potassium (3.6-5.2) mmol/L Carbon Dioxide (22-30) mmol/L Anion Gap (10-20) BUN (7-17) mg/dL Creatinine (0.7-1.2) mg/dL Est GFR ( Amer) Est GFR (Non-Af Amer) POC Glucose (mg/dL) 116 H (65-110) mg/dL Random Glucose (65-105) mg/dL Calcium (8.6-10.4) mg/dl Phosphorus (2.5-4.5) mg/dL Magnesium (1.6-2.3) mg/dL Total Bilirubin (0.2-1.3) mg/dL AST (14-36) U/L ALT (9-52) U/L Alkaline Phosphatase (38-126) U/L Total Protein (6.3-8.3) g/dL Albumin (3.5-5.0) g/dL Globulin (2.2-3.9) gm/dL Albumin/Globulin Ratio (1.0-2.1) Arterial Blood Potassium (3.6-5.2) mmol/L Venous Blood Potassium (3.6-5.2) mmol/L 03/18/18 03/18/18 03/17/18 Range/Units 06:30 05:17 23:47 WBC (4.8-10.8) K/uL RBC (3.80-5.20) Mil/uL Hgb (11.0-16.0) g/dL Hct (34.0-47.0) % MCV (81.0-99.0) fL MCH (27.0-31.0) pg MCHC (33.0-37.0) g/dL RDW (11.5-14.5) % Plt Count (130-400) K/uL MPV (7.2-11.7) fL Neut % (Auto) (50.0-75.0) % Lymph % (Auto) (20.0-40.0) % Garvin % (Auto) (0.0-10.0) % Eos % (Auto) (0.0-4.0) % Baso % (Auto) (0.0-2.0) % Neut # (Auto) (1.8-7.0) K/uL Lymph # (Auto) (1.0-4.3) K/uL Garvin # (Auto) (0.0-0.8) K/uL Eos # (Auto) (0.0-0.7) K/uL Baso # (Auto) (0.0-0.2) K/uL APTT (21-34) SECONDS Puncture Site Rr pCO2 26 L (35-45) mm/Hg pO2 90 (80-100) mm/Hg HCO3 22.9 (21-28) mmol/L ABG pH 7.48 H (7.35-7.45) ABG Total CO2 20.2 L (22-28) mmol/L ABG O2 Saturation 99.2 H (95-98) % ABG Base Excess -2.6 L (-2.0-3.0) mmol/L Michele Test Pos ABG Potassium 3.4 L (3.6-5.2) mmol/L VBG pH (7.32-7.43) VBG pCO2 (40-60) mmHg VBG HCO3 mmol/L VBG Total CO2 (22-28) mmol/L VBG O2 Sat (Calc) (40-65) % VBG Base Excess (0.0-2.0) mmol/L VBG Potassium (3.6-5.2) mmol/L A-a O2 Difference 234.0 mm/Hg Respiratory Index 2.6 Sodium 141 142.0 (132-148) mmol/l Chloride 110 H 114.0 H (98-107) mmol/L Glucose 118 H (65-105) mg/dl Lactate 4.7 H* (0.7-2.1) mmol/L Vent Mode Prvc Mechanical Rate 10 FiO2 50.0 % Tidal Volume 450 PEEP 5 Crit Value Called To Debbi rn Crit Value Called By [employer] Crit Value Read Back Y Blood Gas Notified Time 554 Potassium 3.5 L (3.6-5.2) mmol/L Carbon Dioxide 19 L (22-30) mmol/L Anion Gap 15 (10-20) BUN 21 H (7-17) mg/dL Creatinine 0.6 L (0.7-1.2) mg/dL Est GFR ( Amer) > 60 Est GFR (Non-Af Amer) > 60 POC Glucose (mg/dL) 80 (65-110) mg/dL Random Glucose 118 H (65-105) mg/dL Calcium 7.4 L (8.6-10.4) mg/dl Phosphorus 3.4 (2.5-4.5) mg/dL Magnesium 1.8 (1.6-2.3) mg/dL Total Bilirubin 4.9 H (0.2-1.3) mg/dL AST 26 (14-36) U/L ALT 17 (9-52) U/L Alkaline Phosphatase 86 (38-126) U/L Total Protein 5.0 L (6.3-8.3) g/dL Albumin 2.1 L (3.5-5.0) g/dL Globulin 2.9 (2.2-3.9) gm/dL Albumin/Globulin Ratio 0.7 L (1.0-2.1) Arterial Blood Potassium 3.4 L (3.6-5.2) mmol/L Venous Blood Potassium (3.6-5.2) mmol/L 03/17/18 03/17/18 Range/Units 21:11 17:42 WBC (4.8-10.8) K/uL RBC (3.80-5.20) Mil/uL Hgb (11.0-16.0) g/dL Hct (34.0-47.0) % MCV (81.0-99.0) fL MCH (27.0-31.0) pg MCHC (33.0-37.0) g/dL RDW (11.5-14.5) % Plt Count (130-400) K/uL MPV (7.2-11.7) fL Neut % (Auto) (50.0-75.0) % Lymph % (Auto) (20.0-40.0) % Garvin % (Auto) (0.0-10.0) % Eos % (Auto) (0.0-4.0) % Baso % (Auto) (0.0-2.0) % Neut # (Auto) (1.8-7.0) K/uL Lymph # (Auto) (1.0-4.3) K/uL Garvin # (Auto) (0.0-0.8) K/uL Eos # (Auto) (0.0-0.7) K/uL Baso # (Auto) (0.0-0.2) K/uL APTT 76 H D (21-34) SECONDS Puncture Site pCO2 (35-45) mm/Hg pO2 (80-100) mm/Hg HCO3 (21-28) mmol/L ABG pH (7.35-7.45) ABG Total CO2 (22-28) mmol/L ABG O2 Saturation (95-98) % ABG Base Excess (-2.0-3.0) mmol/L Michele Test ABG Potassium (3.6-5.2) mmol/L VBG pH (7.32-7.43) VBG pCO2 (40-60) mmHg VBG HCO3 mmol/L VBG Total CO2 (22-28) mmol/L VBG O2 Sat (Calc) (40-65) % VBG Base Excess (0.0-2.0) mmol/L VBG Potassium (3.6-5.2) mmol/L A-a O2 Difference mm/Hg Respiratory Index Sodium (132-148) mmol/l Chloride (98-107) mmol/L Glucose (65-105) mg/dl Lactate (0.7-2.1) mmol/L Vent Mode Mechanical Rate FiO2 % Tidal Volume PEEP Crit Value Called To Crit Value Called By Crit Value Read Back Blood Gas Notified Time Potassium (3.6-5.2) mmol/L Carbon Dioxide (22-30) mmol/L Anion Gap (10-20) BUN (7-17) mg/dL Creatinine (0.7-1.2) mg/dL Est GFR ( Amer) Est GFR (Non-Af Amer) POC Glucose (mg/dL) 137 H (65-110) mg/dL Random Glucose (65-105) mg/dL Calcium (8.6-10.4) mg/dl Phosphorus (2.5-4.5) mg/dL Magnesium (1.6-2.3) mg/dL Total Bilirubin (0.2-1.3) mg/dL AST (14-36) U/L ALT (9-52) U/L Alkaline Phosphatase (38-126) U/L Total Protein (6.3-8.3) g/dL Albumin (3.5-5.0) g/dL Globulin (2.2-3.9) gm/dL Albumin/Globulin Ratio (1.0-2.1) Arterial Blood Potassium (3.6-5.2) mmol/L Venous Blood Potassium (3.6-5.2) mmol/L Laboratory Results - last 24 hr 03/17/18 03/17/18 03/17/18 17:42 21:11 23:47 WBC RBC Hgb Hct MCV MCH MCHC RDW Plt Count MPV Neut % (Auto) Lymph % (Auto) Garvin % (Auto) Eos % (Auto) Baso % (Auto) Neut # (Auto) Lymph # (Auto) Garvin # (Auto) Eos # (Auto) Baso # (Auto) APTT 76 H D Puncture Site pCO2 pO2 HCO3 ABG pH ABG Total CO2 ABG O2 Saturation ABG Base Excess Michele Test ABG Potassium VBG pH VBG pCO2 VBG HCO3 VBG Total CO2 VBG O2 Sat (Calc) VBG Base Excess VBG Potassium A-a O2 Difference Respiratory Index Sodium Chloride Glucose Lactate Vent Mode Mechanical Rate FiO2 Tidal Volume PEEP Crit Value Called To Crit Value Called By Crit Value Read Back Blood Gas Notified Time Potassium Carbon Dioxide Anion Gap BUN Creatinine Est GFR ( Amer) Est GFR (Non-Af Amer) POC Glucose (mg/dL) 137 H 80 Random Glucose Calcium Phosphorus Magnesium Total Bilirubin AST ALT Alkaline Phosphatase Total Protein Albumin Globulin Albumin/Globulin Ratio Arterial Blood Potassium Venous Blood Potassium 03/18/18 03/18/18 03/18/18 05:17 06:30 06:32 WBC 11.3 H RBC 2.82 L Hgb 8.6 L Hct 26.1 L MCV 92.4 D MCH 30.5 MCHC 33.0 RDW 16.2 H Plt Count 241 MPV 11.7 Neut % (Auto) 68.9 Lymph % (Auto) 24.2 Garvin % (Auto) 5.9 Eos % (Auto) 0.5 Baso % (Auto) 0.5 Neut # (Auto) 7.8 H Lymph # (Auto) 2.7 Garvin # (Auto) 0.7 Eos # (Auto) 0.1 Baso # (Auto) 0.1 APTT Puncture Site Rr pCO2 26 L pO2 90 HCO3 22.9 ABG pH 7.48 H ABG Total CO2 20.2 L ABG O2 Saturation 99.2 H ABG Base Excess -2.6 L Michele Test Pos ABG Potassium 3.4 L VBG pH VBG pCO2 VBG HCO3 VBG Total CO2 VBG O2 Sat (Calc) VBG Base Excess VBG Potassium A-a O2 Difference 234.0 Respiratory Index 2.6 Sodium 142.0 141 Chloride 114.0 H 110 H Glucose 118 H Lactate 4.7 H* Vent Mode Prvc Mechanical Rate 10 FiO2 50.0 Tidal Volume 450 PEEP 5 Crit Value Called To Debbi rn Crit Value Called By [employer] Crit Value Read Back Y Blood Gas Notified Time 554 Potassium 3.5 L Carbon Dioxide 19 L Anion Gap 15 BUN 21 H Creatinine 0.6 L Est GFR ( Amer) > 60 Est GFR (Non-Af Amer) > 60 POC Glucose (mg/dL) Random Glucose 118 H Calcium 7.4 L Phosphorus 3.4 Magnesium 1.8 Total Bilirubin 4.9 H AST 26 ALT 17 Alkaline Phosphatase 86 Total Protein 5.0 L Albumin 2.1 L Globulin 2.9 Albumin/Globulin Ratio 0.7 L Arterial Blood Potassium 3.4 L Venous Blood Potassium 03/18/18 03/18/18 03/18/18 06:32 06:40 11:20 WBC RBC Hgb Hct MCV MCH MCHC RDW Plt Count MPV Neut % (Auto) Lymph % (Auto) Garvin % (Auto) Eos % (Auto) Baso % (Auto) Neut # (Auto) Lymph # (Auto) Garvin # (Auto) Eos # (Auto) Baso # (Auto) APTT 82 H D Puncture Site pCO2 pO2 HCO3 ABG pH ABG Total CO2 ABG O2 Saturation ABG Base Excess Michele Test ABG Potassium VBG pH VBG pCO2 VBG HCO3 VBG Total CO2 VBG O2 Sat (Calc) VBG Base Excess VBG Potassium A-a O2 Difference Respiratory Index Sodium Chloride Glucose Lactate Vent Mode Mechanical Rate FiO2 Tidal Volume PEEP Crit Value Called To Crit Value Called By Crit Value Read Back Blood Gas Notified Time Potassium Carbon Dioxide Anion Gap BUN Creatinine Est GFR ( Amer) Est GFR (Non-Af Amer) POC Glucose (mg/dL) 116 H 141 H Random Glucose Calcium Phosphorus Magnesium Total Bilirubin AST ALT Alkaline Phosphatase Total Protein Albumin Globulin Albumin/Globulin Ratio Arterial Blood Potassium Venous Blood Potassium 03/18/18 03/18/18 14:10 18:30 WBC RBC Hgb Hct MCV MCH MCHC RDW Plt Count MPV Neut % (Auto) Lymph % (Auto) Garvin % (Auto) Eos % (Auto) Baso % (Auto) Neut # (Auto) Lymph # (Auto) Garvin # (Auto) Eos # (Auto) Baso # (Auto) APTT Puncture Site pCO2 pO2 40 HCO3 ABG pH ABG Total CO2 ABG O2 Saturation ABG Base Excess Michele Test ABG Potassium VBG pH 7.45 H VBG pCO2 26 L VBG HCO3 21.0 VBG Total CO2 18.9 L VBG O2 Sat (Calc) 77.4 H VBG Base Excess -4.3 L VBG Potassium 2.7 L A-a O2 Difference Respiratory Index Sodium 145.0 Chloride 120.0 H Glucose Lactate 2.9 H Vent Mode Mechanical Rate FiO2 Tidal Volume PEEP Crit Value Called To Crit Value Called By Crit Value Read Back Blood Gas Notified Time Potassium Carbon Dioxide Anion Gap BUN Creatinine Est GFR ( Amer) Est GFR (Non-Af Amer) POC Glucose (mg/dL) 141 H Random Glucose Calcium Phosphorus Magnesium Total Bilirubin AST ALT Alkaline Phosphatase Total Protein Albumin Globulin Albumin/Globulin Ratio Arterial Blood Potassium Venous Blood Potassium 2.7 L Critical Care Progress Note - Nutrition Nutrition: Nutrition Category Date Time Status NPO Diet [DIET] Diets 03/06/18 Breakfast Active Attending/Attestation - Attestation I have personally seen and examined this patient.: Yes I have fully participated in the care of the patient.: Yes I have reviewed all pertinent clinical information: Yes Notes (Text): 03/18/18 19:09 patient seen and examined in the intensive care unit. Assessment and plan as per resident note
[2018-03-18] MEDS: Potassium Chloride 20 mEq ER Tab PO SCH (08:00)
--- NOTE | 2018-03-18 11:13 | RAD ---
Date of service: 03/18/2018 HISTORY: Pt is intubated COMPARISON: Multiple serial examinations preceding the most recent study: March 17, 2018. FINDINGS: LUNGS: Modest interval improvement in multifocal infiltrates. PLEURA: No significant pleural effusion identified, no pneumothorax apparent. CARDIOVASCULAR: Atherosclerotic calcifications identified primarily aortic arch. No significant interval change compared to the prior examination(s). OSSEOUS STRUCTURES: No significant abnormalities. VISUALIZED UPPER ABDOMEN: Normal. OTHER FINDINGS: Stable, satisfactory position ventilatory, vascular and nasogastric apparatus. IMPRESSION: Interval improvement multifocal infiltrates. Stable support apparatus.
[2018-03-18] MEDS: Levothyroxine 100 mcg (0.1 mg) Inj IVP SCH (11:41)
--- NOTE | 2018-03-18 11:55 | CP.PCM.PN ---
Subjective - Date & Time of Evaluation Date of Evaluation: 03/18/18 Time of Evaluation: 13:00 - Subjective Subjective: clinically same Objective - Vital Signs/Intake and Output Vital Signs (last 24 hours): Temp Pulse Resp BP Pulse Ox 99.5 F 104 H 18 132/42 L 100 03/18/18 04:00 03/18/18 09:08 03/18/18 09:08 03/18/18 09:08 03/18/18 09:08 Intake and Output: 03/18/18 03/18/18 06:59 18:59 Intake Total 791.5 50.7 Output Total 1975 30 Balance -1183.5 20.7 - Medications Medications: Current Medications Dextrose (Dextrose 50% Inj) 0 ml IV STAT PRN; Protocol PRN Reason: Hypoglycemia Protocol Last Admin: 03/11/18 00:13 Dose: 50 ml Dextrose (Glutose 15) 0 gm PO ONCE PRN; Protocol PRN Reason: Hypoglycemia Protocol Glucagon (Glucagen Diagnostic Kit) 0 mg IM STAT PRN; Protocol PRN Reason: Hypoglycemia Protocol Hydromorphone HCl (Dilaudid) 0.25 mg IVP Q4H PRN PRN Reason: Pain, severe (8-10) Last Admin: 03/18/18 00:07 Dose: 0.25 mg Heparin Sodium/Sodium Chloride (Heparin 11898 Units/250ml 1/2 Normal Saline) 25,000 units in 250 mls @ 9.54 mls/hr IV .Q24H PRN; Protocol PRN Reason: ADJUST RATE PER PROTOCOL Last Admin: 03/17/18 21:15 Dose: 9.13 units/kg/hr, 8.71 mls/hr Meropenem 500 mg/ Sodium (Chloride) 100 mls @ 100 mls/hr IVPB Q8H [facility]; Protocol Last Admin: 03/18/18 09:19 Dose: 100 mls/hr Metronidazole (Flagyl) 500 mg in 100 mls @ 100 mls/hr IVPB Q8H [facility]; Protocol Last Admin: 03/18/18 07:00 Dose: 100 mls/hr Dexmedetomidine HCl 200 mcg/ (Sodium Chloride) 50 mls @ 4.92 mls/hr IV TITR [facility]; Protocol Multivitamins/Vitamin C 10 ml/Chromium/Copper/Manganese/Zinc 1 ml/ Insulin Human Regular 10 unit/ Potassium Chloride 20 meq/ Magnesium Sulfate 1 gm/ Amino Acids/Electrolytes/Dextrose 1,023.1 mls @ 42 mls/hr IV .Q24H ONE Stop: 03/18/18 17:59 Last Admin: 03/17/18 18:11 Dose: 42 mls/hr Insulin Aspart (Novolog) 0 unit SC Q6 [facility]; Protocol Last Admin: 03/18/18 06:00 Dose: Not Given Levothyroxine Sodium (Synthroid) 75 mcg IVP DAILY [facility] Last Admin: 03/18/18 11:41 Dose: 75 mcg Pantoprazole Sodium (Protonix Inj) 40 mg IVP Q12H [facility] Last Admin: 03/18/18 09:45 Dose: 40 mg Potassium Chloride (K-Dur 20 Meq Er Tab) 40 meq PO BRK [facility] Vitamin A (Vitamin A & D Oint Ud Foilpak) 0.5 ea TOP Q4 PRN PRN Reason: Lip dryness Last Admin: 03/15/18 21:39 Dose: 0.5 ea - Labs Labs: 03/18/18 06:32 03/18/18 06:30 PT 15.7 SECONDS (9.7-12.2) H 03/11/18 04:15 INR 1.4 03/11/18 04:15 APTT 82 SECONDS (21-34) H D 03/18/18 06:32 - Constitutional Appears: Well - Head Exam Head Exam: ATRAUMATIC, NORMAL INSPECTION, NORMOCEPHALIC - Eye Exam Eye Exam: EOMI, Normal appearance, PERRL Pupil Exam: NORMAL ACCOMODATION, PERRL - ENT Exam ENT Exam: Mucous Membranes Moist, Normal Exam - Neck Exam Neck Exam: Full ROM, Normal Inspection. absent: Lymphadenopathy - Respiratory Exam Respiratory Exam: Decreased Breath Sounds - Cardiovascular Exam Cardiovascular Exam: REGULAR RHYTHM, +S1, +S2 - GI/Abdominal Exam GI & Abdominal Exam: Soft, Diminished Bowel Sounds - Rectal Exam Rectal Exam: Deferred
[2018-03-18 14:23] LABS: VENOUS BLOOD GAS BASE EXCESS -4.3 mmol/L (0.0-2.0); VENOUS BLOOD GAS PCO2 26 mmHg (40-60); VENOUS BLOOD GAS PO2 40 mm/Hg (30-55); VENOUS BLOOD PH 7.45 (7.32-7.43)
--- NOTE | 2018-03-18 14:39 | CP.PCM.PN ---
Subjective - Date & Time of Evaluation Date of Evaluation: 03/15/18 Time of Evaluation: 15:00 - Subjective Subjective: Vented Objective - Vital Signs/Intake and Output Vital Signs (last 24 hours): Temp Pulse Resp BP Pulse Ox 99.5 F 102 H 26 H 131/40 L 100 03/18/18 04:00 03/18/18 14:08 03/18/18 14:08 03/18/18 14:08 03/18/18 14:08 Intake and Output: 03/18/18 03/18/18 06:59 18:59 Intake Total 791.5 454.9 Output Total 1975 340 Balance -1183.5 114.9 - Medications Medications: Current Medications Dextrose (Dextrose 50% Inj) 0 ml IV STAT PRN; Protocol PRN Reason: Hypoglycemia Protocol Last Admin: 03/11/18 00:13 Dose: 50 ml Dextrose (Glutose 15) 0 gm PO ONCE PRN; Protocol PRN Reason: Hypoglycemia Protocol Glucagon (Glucagen Diagnostic Kit) 0 mg IM STAT PRN; Protocol PRN Reason: Hypoglycemia Protocol Hydromorphone HCl (Dilaudid) 0.25 mg IVP Q4H PRN PRN Reason: Pain, severe (8-10) Last Admin: 03/18/18 00:07 Dose: 0.25 mg Heparin Sodium/Sodium Chloride (Heparin 00647 Units/250ml 1/2 Normal Saline) 25,000 units in 250 mls @ 9.54 mls/hr IV .Q24H PRN; Protocol PRN Reason: ADJUST RATE PER PROTOCOL Last Admin: 03/17/18 21:15 Dose: 9.13 units/kg/hr, 8.71 mls/hr Meropenem 500 mg/ Sodium (Chloride) 100 mls @ 100 mls/hr IVPB Q8H [facility]; Protocol Last Admin: 03/18/18 09:19 Dose: 100 mls/hr Metronidazole (Flagyl) 500 mg in 100 mls @ 100 mls/hr IVPB Q8H [facility]; Protocol Last Admin: 03/18/18 14:15 Dose: 100 mls/hr Dexmedetomidine HCl 200 mcg/ (Sodium Chloride) 50 mls @ 4.92 mls/hr IV TITR [facility]; Protocol Multivitamins/Vitamin C 10 ml/Chromium/Copper/Manganese/Zinc 1 ml/ Insulin Human Regular 10 unit/ Potassium Chloride 20 meq/ Magnesium Sulfate 1 gm/ Amino Acid s/Electrolytes/Dextrose 1,023.1 mls @ 42 mls/hr IV .Q24H ONE Stop: 03/18/18 17:59 Last Admin: 03/17/18 18:11 Dose: 42 mls/hr Insulin Human Regular 10 unit/Amino Acids/Electrolytes/Dextrose 1,000.1 mls @ 42 mls/hr IV .[id number] [facility] Stop: 03/19/18 17:48 Insulin Aspart (Novolog) 0 unit SC Q6 [facility]; Protocol Last Admin: 03/18/18 12:23 Dose: Not Given Levothyroxine Sodium (Synthroid) 75 mcg IVP DAILY [facility] OF [facility] Last Admin: 03/18/18 11:41 Dose: 75 mcg Pantoprazole Sodium (Protonix Inj) 40 mg IVP Q12H [facility] OF [facility] Last Admin: 03/18/18 09:45 Dose: 40 mg Potassium Chloride (K-Dur 20 Meq Er Tab) 40 meq PO BRK [facility] Vitamin A (Vitamin A & D Oint Ud Foilpak) 0.5 ea TOP Q4 PRN PRN Reason: Lip dryness Last Admin: 03/15/18 21:39 Dose: 0.5 ea - Labs Labs: 03/18/18 06:32 03/18/18 06:30 PT 15.7 SECONDS (9.7-12.2) H 03/11/18 04:15 INR 1.4 03/11/18 04:15 APTT 82 SECONDS (21-34) H D 03/18/18 06:32 - Head Exam Head Exam: ATRAUMATIC - Eye Exam Eye Exam: Normal appearance - ENT Exam ENT Exam: Mucous Membranes Dry - Respiratory Exam Respiratory Exam: NORMAL BREATHING PATTERN - Cardiovascular Exam Cardiovascular Exam: +S1, +S2 - GI/Abdominal Exam GI & Abdominal Exam: Normal Bowel Sounds Assessment and Plan (1) Anemia Assessment & Plan: anemia of chronic disease. 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
--- NOTE | 2018-03-18 14:41 | CP.PCM.PN ---
Subjective - Date & Time of Evaluation Date of Evaluation: 03/17/18 Time of Evaluation: 19:00 - Subjective Subjective: Vented Objective - Vital Signs/Intake and Output Vital Signs (last 24 hours): Temp Pulse Resp BP Pulse Ox 99.5 F 102 H 26 H 131/40 L 100 03/18/18 04:00 03/18/18 14:08 03/18/18 14:08 03/18/18 14:08 03/18/18 14:08 Intake and Output: 03/18/18 03/18/18 06:59 18:59 Intake Total 791.5 454.9 Output Total 1975 340 Balance -1183.5 114.9 - Medications Medications: Current Medications Dextrose (Dextrose 50% Inj) 0 ml IV STAT PRN; Protocol PRN Reason: Hypoglycemia Protocol Last Admin: 03/11/18 00:13 Dose: 50 ml Dextrose (Glutose 15) 0 gm PO ONCE PRN; Protocol PRN Reason: Hypoglycemia Protocol Glucagon (Glucagen Diagnostic Kit) 0 mg IM STAT PRN; Protocol PRN Reason: Hypoglycemia Protocol Hydromorphone HCl (Dilaudid) 0.25 mg IVP Q4H PRN PRN Reason: Pain, severe (8-10) Last Admin: 03/18/18 00:07 Dose: 0.25 mg Heparin Sodium/Sodium Chloride (Heparin 82666 Units/250ml 1/2 Normal Saline) 25,000 units in 250 mls @ 9.54 mls/hr IV .Q24H PRN; Protocol PRN Reason: ADJUST RATE PER PROTOCOL Last Admin: 03/17/18 21:15 Dose: 9.13 units/kg/hr, 8.71 mls/hr Meropenem 500 mg/ Sodium (Chloride) 100 mls @ 100 mls/hr IVPB Q8H [facility]; Protocol Last Admin: 03/18/18 09:19 Dose: 100 mls/hr Metronidazole (Flagyl) 500 mg in 100 mls @ 100 mls/hr IVPB Q8H [facility]; Protocol Last Admin: 03/18/18 14:15 Dose: 100 mls/hr Dexmedetomidine HCl 200 mcg/ (Sodium Chloride) 50 mls @ 4.92 mls/hr IV TITR [facility]; Protocol Multivitamins/Vitamin C 10 ml/Chromium/Copper/Manganese/Zinc 1 ml/ Insulin Human Regular 10 unit/ Potassium Chloride 20 meq/ Magnesium Sulfate 1 gm/ Amino Acid s/Electrolytes/Dextrose 1,023.1 mls @ 42 mls/hr IV .Q24H ONE Stop: 03/18/18 17:59 Last Admin: 03/17/18 18:11 Dose: 42 mls/hr Insulin Human Regular 10 unit/Amino Acids/Electrolytes/Dextrose 1,000.1 mls @ 42 mls/hr IV .[id number] [facility] Stop: 03/19/18 17:48 Insulin Aspart (Novolog) 0 unit SC Q6 [facility]; Protocol Last Admin: 03/18/18 12:23 Dose: Not Given Levothyroxine Sodium (Synthroid) 75 mcg IVP DAILY [facility] Last Admin: 03/18/18 11:41 Dose: 75 mcg Pantoprazole Sodium (Protonix Inj) 40 mg IVP Q12H [facility] Last Admin: 03/18/18 09:45 Dose: 40 mg Potassium Chloride (K-Dur 20 Meq Er Tab) 40 meq PO BRK [facility] Vitamin A (Vitamin A & D Oint Ud Foilpak) 0.5 ea TOP Q4 PRN PRN Reason: Lip dryness Last Admin: 03/15/18 21:39 Dose: 0.5 ea - Labs Labs: 03/18/18 06:32 03/18/18 06:30 PT 15.7 SECONDS (9.7-12.2) H 03/11/18 04:15 INR 1.4 03/11/18 04:15 APTT 82 SECONDS (21-34) H D 03/18/18 06:32 - Head Exam Head Exam: ATRAUMATIC - Eye Exam Eye Exam: Normal appearance - ENT Exam ENT Exam: Mucous Membranes Dry - Respiratory Exam Respiratory Exam: NORMAL BREATHING PATTERN - Cardiovascular Exam Cardiovascular Exam: +S1, +S2 - GI/Abdominal Exam GI & Abdominal Exam: Normal Bowel Sounds Assessment and Plan (1) Anemia Assessment & Plan: anemia of chronic disease. 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
--- NOTE | 2018-03-18 14:42 | CP.PCM.PN ---
Subjective - Date & Time of Evaluation Date of Evaluation: 03/18/18 Time of Evaluation: 14:00 - Subjective Subjective: Vented Objective - Vital Signs/Intake and Output Vital Signs (last 24 hours): Temp Pulse Resp BP Pulse Ox 99.5 F 102 H 26 H 131/40 L 100 03/18/18 04:00 03/18/18 14:08 03/18/18 14:08 03/18/18 14:08 03/18/18 14:08 Intake and Output: 03/18/18 03/18/18 06:59 18:59 Intake Total 791.5 454.9 Output Total 1975 340 Balance -1183.5 114.9 - Medications Medications: Current Medications Dextrose (Dextrose 50% Inj) 0 ml IV STAT PRN; Protocol PRN Reason: Hypoglycemia Protocol Last Admin: 03/11/18 00:13 Dose: 50 ml Dextrose (Glutose 15) 0 gm PO ONCE PRN; Protocol PRN Reason: Hypoglycemia Protocol Glucagon (Glucagen Diagnostic Kit) 0 mg IM STAT PRN; Protocol PRN Reason: Hypoglycemia Protocol Hydromorphone HCl (Dilaudid) 0.25 mg IVP Q4H PRN PRN Reason: Pain, severe (8-10) Last Admin: 03/18/18 00:07 Dose: 0.25 mg Heparin Sodium/Sodium Chloride (Heparin 46551 Units/250ml 1/2 Normal Saline) 25,000 units in 250 mls @ 9.54 mls/hr IV .Q24H PRN; Protocol PRN Reason: ADJUST RATE PER PROTOCOL Last Admin: 03/17/18 21:15 Dose: 9.13 units/kg/hr, 8.71 mls/hr Meropenem 500 mg/ Sodium (Chloride) 100 mls @ 100 mls/hr IVPB Q8H [facility]; Protocol Last Admin: 03/18/18 09:19 Dose: 100 mls/hr Metronidazole (Flagyl) 500 mg in 100 mls @ 100 mls/hr IVPB Q8H [facility]; Protocol Last Admin: 03/18/18 14:15 Dose: 100 mls/hr Dexmedetomidine HCl 200 mcg/ (Sodium Chloride) 50 mls @ 4.92 mls/hr IV TITR [facility]; Protocol Multivitamins/Vitamin C 10 ml/Chromium/Copper/Manganese/Zinc 1 ml/ Insulin Human Regular 10 unit/ Potassium Chloride 20 meq/ Magnesium Sulfate 1 gm/ Amino Acid s/Electrolytes/Dextrose 1,023.1 mls @ 42 mls/hr IV .Q24H ONE Stop: 03/18/18 17:59 Last Admin: 03/17/18 18:11 Dose: 42 mls/hr Insulin Human Regular 10 unit/Amino Acids/Electrolytes/Dextrose 1,000.1 mls @ 42 mls/hr IV .[id number] [facility] Stop: 03/19/18 17:48 Insulin Aspart (Novolog) 0 unit SC Q6 [facility]; Protocol Last Admin: 03/18/18 12:23 Dose: Not Given Levothyroxine Sodium (Synthroid) 75 mcg IVP DAILY [facility] Last Admin: 03/18/18 11:41 Dose: 75 mcg Pantoprazole Sodium (Protonix Inj) 40 mg IVP Q12H [facility] Last Admin: 03/18/18 09:45 Dose: 40 mg Potassium Chloride (K-Dur 20 Meq Er Tab) 40 meq PO BRK ARPIT Vitamin A (Vitamin A & D Oint Ud Foilpak) 0.5 ea TOP Q4 PRN PRN Reason: Lip dryness Last Admin: 03/15/18 21:39 Dose: 0.5 ea - Labs Labs: 03/18/18 06:32 03/18/18 06:30 PT 15.7 SECONDS (9.7-12.2) H 03/11/18 04:15 INR 1.4 03/11/18 04:15 APTT 82 SECONDS (21-34) H D 03/18/18 06:32 - Head Exam Head Exam: ATRAUMATIC - Eye Exam Eye Exam: Normal appearance - ENT Exam ENT Exam: Mucous Membranes Dry - Respiratory Exam Respiratory Exam: NORMAL BREATHING PATTERN - Cardiovascular Exam Cardiovascular Exam: +S1, +S2 - GI/Abdominal Exam GI & Abdominal Exam: Normal Bowel Sounds Assessment and Plan (1) Anemia Assessment & Plan: anemia of chronic disease. Status: Acute (2) Coagulopathy Assessment & Plan: heparin likely nutritional component Status: Acute (3) History of cholangiocarcinoma Assessment & Plan: s/p whipple procedure in 11/[address] [facility] Status: Acute
--- NOTE | 2018-03-18 16:27 | CP.PCM.PN ---
Subjective - Date & Time of Evaluation Date of Evaluation: 03/18/18 Time of Evaluation: 07:00 - Subjective Subjective: GENERAL SURGERY PROGRESS NOTE FOR DR. CORDERO PT seen and examined in ICU. Remains intubated. On heparin drip and TPN. Objective - Vital Signs/Intake and Output Vital Signs (last 24 hours): Temp Pulse Resp BP Pulse Ox 99.5 F 102 H 26 H 131/40 L 100 03/18/18 04:00 03/18/18 14:08 03/18/18 14:08 03/18/18 14:08 03/18/18 14:08 Intake and Output: 03/18/18 03/18/18 06:59 18:59 Intake Total 791.5 454.9 Output Total 1975 340 Balance -1183.5 114.9 - Medications Medications: Current Medications Dextrose (Dextrose 50% Inj) 0 ml IV STAT PRN; Protocol PRN Reason: Hypoglycemia Protocol Last Admin: 03/11/18 00:13 Dose: 50 ml Dextrose (Glutose 15) 0 gm PO ONCE PRN; Protocol PRN Reason: Hypoglycemia Protocol Glucagon (Glucagen Diagnostic Kit) 0 mg IM STAT PRN; Protocol PRN Reason: Hypoglycemia Protocol Hydromorphone HCl (Dilaudid) 0.25 mg IVP Q4H PRN PRN Reason: Pain, severe (8-10) Last Admin: 03/18/18 00:07 Dose: 0.25 mg Heparin Sodium/Sodium Chloride (Heparin 70175 Units/250ml 1/2 Normal Saline) 25,000 units in 250 mls @ 9.54 mls/hr IV .Q24H PRN; Protocol PRN Reason: ADJUST RATE PER PROTOCOL Last Admin: 03/17/18 21:15 Dose: 9.13 units/kg/hr, 8.71 mls/hr Meropenem 500 mg/ Sodium (Chloride) 100 mls @ 100 mls/hr IVPB Q8H [facility]; Protocol Last Admin: 03/18/18 09:19 Dose: 100 mls/hr Metronidazole (Flagyl) 500 mg in 100 mls @ 100 mls/hr IVPB Q8H [facility]; Protocol Last Admin: 03/18/18 14:15 Dose: 100 mls/hr Dexmedetomidine HCl 200 mcg/ (Sodium Chloride) 50 mls @ 4.92 mls/hr IV TITR [facility]; Protocol Multivitamins/Vitamin C 10 ml/Chromium/Copper/Manganese/Zinc 1 ml/ Insulin Human Regular 10 unit/ Potassium Chloride 20 meq/ Magnesium Sulfate 1 gm/ Amino Acids/Electrolytes/Dextrose 1,023.1 mls @ 42 mls/hr IV .Q24H ONE Stop: 03/18/18 17:59 Last Admin: 03/17/18 18:11 Dose: 42 mls/hr Insulin Human Regular 10 unit/Amino Acids/Electrolytes/Dextrose 1,000.1 mls @ 42 mls/hr IV .[id number] [facility] Stop: 03/19/18 17:48 Insulin Aspart (Novolog) 0 unit SC Q6 [facility]; Protocol Last Admin: 03/18/18 12:23 Dose: Not Given Levothyroxine Sodium (Synthroid) 75 mcg IVP DAILY [facility] Last Admin: 03/18/18 11:41 Dose: 75 mcg Pantoprazole Sodium (Protonix Inj) 40 mg IVP Q12H [facility] Last Admin: 03/18/18 09:45 Dose: 40 mg Potassium Chloride (K-Dur 20 Meq Er Tab) 40 meq PO BRK [facility] Vitamin A (Vitamin A & D Oint Ud Foilpak) 0.5 ea TOP Q4 PRN PRN Reason: Lip dryness Last Admin: 03/15/18 21:39 Dose: 0.5 ea - Labs Labs: 03/18/18 06:32 03/18/18 06:30 PT 15.7 SECONDS (9.7-12.2) H 03/11/18 04:15 INR 1.4 03/11/18 04:15 APTT 82 SECONDS (21-34) H D 03/18/18 06:32 - Constitutional Appears: No Acute Distress - Respiratory Exam Respiratory Exam: NORMAL BREATHING PATTERN. absent: Respiratory Distress - Cardiovascular Exam Cardiovascular Exam: +S1, +S2 - GI/Abdominal Exam GI & Abdominal Exam: Soft. absent: Distended, Firm, Guarding, Rigid, Tenderness, Rebound Additional comments: Wound drainage bag in place with 200cc output overnight NG tube has 50cc output J tube had 10cc Assessment and Plan - Assessment and Plan (Free Text) Assessment: 82F with mesenteric ischemia, necrotic bowel s/p 2 ex laps with resection of small bowel, left in discontinuity Plan: - Continue medical management per primary and ICU team - Continue heparin drip, antibiotics - Continue to monitor output - Trend labs, supplement potassium, phosphorus, and magnesium aggressively - CTA ordered, will FU results and discuss with IR regarding possible intervention Further recommendations per Dr. Fortino Null PGY-4
[2018-03-18] MEDS ORDERED: Iodixanol 320 MG/ML 100 ML BOTTLE IV ONE (17:02)
[2018-03-18] MEDS ORDERED: TPN#7 IV SCH (18:00)
[2018-03-19] MEDS: Meropenem 500 MG in Sodium Chloride 0.9% 100 ML IVPB SCH ×3 (00:38→16:50)
[2018-03-19] MEDS: (Novolog) Insulin Aspart, Recombinant 100 u/ml 10 ml vial SC SCH ×4 (00:47→18:20)
[2018-03-19] MEDS: Heparin25000 units/250ml 1/2NS 25,000 UNITS/250 ML BAG IV PRN (01:12)
[2018-03-19 05:14] LABS: ABG ALLEN TEST POS; ARTERIAL BLOOD GAS HCO3 25.3 mmol/L (21-28); ARTERIAL BLOOD GAS PCO2 28 mm/Hg (35-45); ARTERIAL BLOOD GAS PH 7.51 (7.35-7.45); ARTERIAL BLOOD GAS PO2 109 mm/Hg (80-100); ARTERIAL BLOOD GAS TCO2 23.2 mmol/L (22-28)
[2018-03-19] MEDS: HYDROmorphone 0.5 mg/0.5 ml ISec IVP PRN (06:00)
[2018-03-19] MEDS: metroNIDAZOLE IV 500 mg/100 ml 500 MG/100 ML BAG IVPB SCH ×3 (06:02→22:04)
[2018-03-19 06:58] LABS: BASO # 0.1 K/uL (0.0-0.2); BASO % 0.5 % (0.0-2.0); EOS # 0.1 K/uL (0.0-0.7); EOS % 0.4 % (0.0-4.0); HEMOGLOBIN 9.6 g/dL (11.0-16.0); LYMPH # 5.3 K/uL (1.0-4.3); LYMPH % 38.7 % (20.0-40.0); MEAN CELL VOLUME 92.6 fL (81.0-99.0); MEAN CORPUSCULAR HEMOGLOBIN 30.3 pg (27.0-31.0); MEAN CORPUSCULAR HGB CONC 32.8 g/dL (33.0-37.0); MEAN PLATELET VOLUME 11.4 fL (7.2-11.7); MONO # 0.2 K/uL (0.0-0.8); MONO % 1.3 % (0.0-10.0); NEUT % 59.1 % (50.0-75.0); NRBC % 0.1 % (0.0-2.0); RBC 3.18 Mil/uL (3.80-5.20); RED CELL DISTRIBUTION WIDTH 16.7 % (11.5-14.5); WHITE BLOOD COUNT 13.6 K/uL (4.8-10.8)
[2018-03-19 07:33] LABS: ALB/GLOB RATIO 0.7 (1.0-2.1); ALBUMIN 2.4 g/dL (3.5-5.0); ALT/SGPT 15 U/L (9-52); AST/SGOT 37 U/L (14-36); BLOOD UREA NITROGEN 20 mg/dL (7-17); CALCIUM 7.7 mg/dl (8.6-10.4); GFR NON-AFRICAN AMERICAN > 60
[2018-03-19] MEDS ORDERED: HYDROmorphone 0.5 mg/0.5 ml ISec IVP STA (07:45)
--- NOTE | 2018-03-19 09:04 | RAD ---
Chest x-ray single frontal view HISTORY: Ventilator. Comparison: 03/18/2018 FINDINGS: Lines and tubes in stable position. Moderate venous congestion. Confluent consolidative opacification in the right mid to lower lung zone. Small right pleural effusion. Atherosclerotic calcification at the aortic knob. Enlarged ectatic aorta. Mild cardiomegaly. Degenerative changes in the spine and shoulders. Impression: Lines and tubes in stable position. Moderate venous congestion. Confluent consolidative opacification in the right mid to lower lung zone. Small right pleural effusion. Atherosclerotic calcification at the aortic knob. Enlarged ectatic aorta. Mild cardiomegaly.
--- NOTE | 2018-03-19 09:10 | CP.CCUPN ---
<Rivas Cooley - Last Filed: 03/19/18 18:25> CCU Subjective - Physician Review Subjective (Free Text): 03/17/18 11:08 Patient was seen and examined this morning. Patient remains intubated. Patient is not agitated. She is awake and responsive. She is not on vasopressors and hemodynamically stable. Her urine output is 2600cc overnight. 03/18/18 11:37 Patient was seen and examined this morning. Patient is on CPAP and hemodynamically stable. 03/19/18 09:31 Patient examined at bedside. Patient is intubated. Patient on Heparin drip and TPN. Critical Care Time Spent (in minutes): 35 CCU Objective - Vital Signs / Intake & Output Vital Signs (Last 4 hours): Vital Signs Pulse Resp BP Pulse Ox 03/19/18 06:49 124/63 03/19/18 06:03 138 H 30 H 100 Intake and Output (Last 8hrs): Intake & Output 03/18/18 03/19/18 03/19/18 22:59 06:59 14:59 Intake Total 556.3 1006.3 Output Total 595 480 Balance -38.7 526.3 Weight 220 lb 10.56 oz Intake: IV 250 Intake, IV Amount 556.3 756.3 Left Wrist 78.3 78.3 Right Distal IJ 300 Right Distal Port 378 378 Internal Jugular Right Medial Port 100 Internal Jugular Oral 0 Output: Drainage 300 150 LEFT JEJUNOSTOMY 0 0 Right Nare 100 50 abdominal wound drain 200 100 Urine 295 330 Urethral (Tran) 295 330 - Physical Exam Physical Exam Limitations: Positive for: Clinical Condition Head: Positive for: Atraumatic, Normocephalic Pupils: Positive for: PERRL Extroacular Muscles: Positive for: EOMI Mouth: Positive for: Moist Mucous Membranes Nose (External): Positive for: Other (NGT) Respiratory/Chest: Positive for: Clear to Auscultation, Other (on vent, intubated). Negative for: Respiratory Distress Cardiovascular: Positive for: Normal S1, S2, Tachycardic. Negative for: Murmurs Abdomen: Positive for: Tenderness (oozing from abdominal surgical site.), Distention, Other (Surgical site with yellow fluids) Upper Extremity: Positive for: Edema Lower Extremity: Positive for: Edema, Other (R TLC) Neurological: Positive for: Other (sedated) Skin: Positive for: Warm, Normal Color Psychiatric: Positive for: Alert - Medications Active Medications: Active Medications Generic Name Dose Route Start Last Admin Trade Name Ajq PRN Reason Stop Dose Admin Dextrose 0 ml 03/06/18 15:02 03/11/18 00:13 Dextrose 50% Inj IV 50 ml STAT PRN Administration Hypoglycemia Protocol Protocol Dextrose 0 gm 03/06/18 15:02 Glutose 15 PO ONCE PRN Hypoglycemia Protocol Protocol Glucagon 0 mg 03/06/18 15:02 Glucagen Diagnostic Kit IM STAT PRN Hypoglycemia Protocol Protocol Hydromorphone HCl 0.25 mg 03/10/18 20:35 03/19/18 06:00 Dilaudid IVP 0.25 mg Q4H PRN Administration Pain, severe (8-10) Heparin Sodium/Sodium Chloride 25,000 units in 250 mls @ 9.54 mls/hr 03/10/18 23:20 03/19/18 01:12 Heparin 45280 Units/250ml 1/2 Normal Saline IV 9.13 units/kg/hr .Q24H PRN 8.71 mls/hr ADJUST RATE PER PROTOCOL Administration Protocol 10 UNITS/KG/HR Meropenem 500 mg/ Sodium 100 mls @ 100 mls/hr 03/12/18 17:00 03/19/18 00:38 Chloride IVPB 100 mls/hr Q8H ARPIT Administration Protocol Metronidazole 500 mg in 100 mls @ 100 mls/hr 03/13/18 15:00 03/19/18 06:02 Flagyl IVPB 100 mls/hr Q8H ARPIT Administration Protocol Insulin Human Regular 10 unit/ 1,000.1 mls @ 42 mls/hr 03/18/18 18:00 03/18/18 19:00 Amino Acids/Electrolytes/ IV 03/19/18 17:48 42 mls/hr Dextrose .[id number] ARPIT Administration Insulin Aspart 0 unit 03/15/18 12:00 03/19/18 06:15 Novolog SC 2 units Q6 ARPIT Administration Protocol Levothyroxine Sodium 75 mcg 03/15/18 17:00 03/18/18 11:41 Synthroid IVP 75 mcg DAILY ARPIT Administration Pantoprazole Sodium 40 mg 03/07/18 10:00 03/18/18 21:02 Protonix Inj IVP 40 mg Q12H ARPIT Administration Potassium Chloride 40 meq 03/17/18 17:00 03/18/18 08:00 K-Dur 20 Meq Er Tab PO Not Given BRK ARPIT Vitamin A 0.5 ea 03/10/18 20:33 03/15/18 21:39 Vitamin A & D Oint Ud Foilpak TOP 0.5 ea Q4 PRN Administration Lip dryness - Patient Studies Lab Studies: Microbiology Studies 03/17/18 00:52 Blood Culture - Preliminary Blood NO GROWTH AFTER 48 HOURS 03/17/18 00:52 Blood Culture - Preliminary Blood NO GROWTH AFTER 48 HOURS Lab Studies 03/19/18 03/19/18 03/19/18 Range/Units 06:54 06:54 06:54 WBC 13.6 H (4.8-10.8) K/uL RBC 3.18 L (3.80-5.20) Mil/uL Hgb 9.6 L (11.0-16.0) g/dL Hct 29.4 L (34.0-47.0) % MCV 92.6 (81.0-99.0) fL MCH 30.3 (27.0-31.0) pg MCHC 32.8 L (33.0-37.0) g/dL RDW 16.7 H (11.5-14.5) % Plt Count 343 D (130-400) K/uL MPV 11.4 (7.2-11.7) fL Neut % (Auto) 59.1 (50.0-75.0) % Lymph % (Auto) 38.7 (20.0-40.0) % [place] % (Auto) 1.3 (0.0-10.0) % Eos % (Auto) 0.4 (0.0-4.0) % Baso % (Auto) 0.5 (0.0-2.0) % Neut # (Auto) 8.0 H (1.8-7.0) K/uL Lymph # (Auto) 5.3 H (1.0-4.3) K/uL [place] # (Auto) 0.2 (0.0-0.8) K/uL Eos # (Auto) 0.1 (0.0-0.7) K/uL Baso # (Auto) 0.1 (0.0-0.2) K/uL APTT 55 H D (21-34) SECONDS Puncture Site pCO2 (35-45) mm/Hg pO2 (30-55) mm/Hg HCO3 (21-28) mmol/L ABG pH (7.35-7.45) ABG Total CO2 (22-28) mmol/L ABG O2 Saturation (95-98) % ABG Base Excess (-2.0-3.0) mmol/L Michele Test ABG Potassium (3.6-5.2) mmol/L VBG pH (7.32-7.43) VBG pCO2 (40-60) mmHg VBG HCO3 mmol/L VBG Total CO2 (22-28) mmol/L VBG O2 Sat (Calc) (40-65) % VBG Base Excess (0.0-2.0) mmol/L VBG Potassium (3.6-5.2) mmol/L A-a O2 Difference mm/Hg Respiratory Index Sodium 142 (132-148) mmol/l Chloride 111 H (98-107) mmol/L Glucose (65-105) mg/dl Lactate (0.7-2.1) mmol/L Vent Mode Mechanical Rate FiO2 % Tidal Volume PEEP Potassium 3.7 (3.6-5.2) mmol/L Carbon Dioxide 22 (22-30) mmol/L Anion Gap 13 (10-20) BUN 20 H (7-17) mg/dL Creatinine 0.6 L (0.7-1.2) mg/dL Est GFR ( Amer) > 60 Est GFR (Non-Af Amer) > 60 POC Glucose (mg/dL) (65-110) mg/dL Random Glucose 173 H (65-105) mg/dL Calcium 7.7 L (8.6-10.4) mg/dl Phosphorus 3.6 (2.5-4.5) mg/dL Magnesium 1.9 (1.6-2.3) mg/dL Total Bilirubin 4.7 H (0.2-1.3) mg/dL AST 37 H D (14-36) U/L ALT 15 (9-52) U/L Alkaline Phosphatase 117 (38-126) U/L Total Protein 5.8 L (6.3-8.3) g/dL Albumin 2.4 L (3.5-5.0) g/dL Globulin 3.4 (2.2-3.9) gm/dL Albumin/Globulin Ratio 0.7 L (1.0-2.1) Arterial Blood Potassium (3.6-5.2) mmol/L Venous Blood Potassium (3.6-5.2) mmol/L 03/19/18 03/19/18 03/19/18 Range/Units 06:13 05:05 00:07 WBC (4.8-10.8) K/uL RBC (3.80-5.20) Mil/uL Hgb (11.0-16.0) g/dL Hct (34.0-47.0) % MCV (81.0-99.0) fL MCH (27.0-31.0) pg MCHC (33.0-37.0) g/dL RDW (11.5-14.5) % Plt Count (130-400) K/uL MPV (7.2-11.7) fL Neut % (Auto) (50.0-75.0) % Lymph % (Auto) (20.0-40.0) % [place] % (Auto) (0.0-10.0) % Eos % (Auto) (0.0-4.0) % Baso % (Auto) (0.0-2.0) % Neut # (Auto) (1.8-7.0) K/uL Lymph # (Auto) (1.0-4.3) K/uL [place] # (Auto) (0.0-0.8) K/uL Eos # (Auto) (0.0-0.7) K/uL Baso # (Auto) (0.0-0.2) K/uL APTT (21-34) SECONDS Puncture Site Rr pCO2 28 L (35-45) mm/Hg pO2 109 H (30-55) mm/Hg HCO3 25.3 (21-28) mmol/L ABG pH 7.51 H (7.35-7.45) ABG Total CO2 23.2 (22-28) mmol/L ABG O2 Saturation 100.0 H (95-98) % ABG Base Excess 0.4 (-2.0-3.0) mmol/L Michele Test Pos ABG Potassium 3.5 L (3.6-5.2) mmol/L VBG pH (7.32-7.43) VBG pCO2 (40-60) mmHg VBG HCO3 mmol/L VBG Total CO2 (22-28) mmol/L VBG O2 Sat (Calc) (40-65) % VBG Base Excess (0.0-2.0) mmol/L VBG Potassium (3.6-5.2) mmol/L A-a O2 Difference 213.0 mm/Hg Respiratory Index 2.0 Sodium 144.0 (132-148) mmol/l Chloride 116.0 H (98-107) mmol/L Glucose 175 H (65-105) mg/dl Lactate 3.1 H (0.7-2.1) mmol/L Vent Mode Prvc Mechanical Rate 14 FiO2 50.0 % Tidal Volume 450 PEEP 5 Potassium (3.6-5.2) mmol/L Carbon Dioxide (22-30) mmol/L Anion Gap (10-20) BUN (7-17) mg/dL Creatinine (0.7-1.2) mg/dL Est GFR ( Amer) Est GFR (Non-Af Amer) POC Glucose (mg/dL) 160 H 159 H (65-110) mg/dL Random Glucose (65-105) mg/dL Calcium (8.6-10.4) mg/dl Phosphorus (2.5-4.5) mg/dL Magnesium (1.6-2.3) mg/dL Total Bilirubin (0.2-1.3) mg/dL AST (14-36) U/L ALT (9-52) U/L Alkaline Phosphatase (38-126) U/L Total Protein (6.3-8.3) g/dL Albumin (3.5-5.0) g/dL Globulin (2.2-3.9) gm/dL Albumin/Globulin Ratio (1.0-2.1) Arterial Blood Potassium 3.5 L (3.6-5.2) mmol/L Venous Blood Potassium (3.6-5.2) mmol/L 03/18/18 03/18/18 03/18/18 Range/Units 18:30 14:10 11:20 WBC (4.8-10.8) K/uL RBC (3.80-5.20) Mil/uL Hgb (11.0-16.0) g/dL Hct (34.0-47.0) % MCV (81.0-99.0) fL MCH (27.0-31.0) pg MCHC (33.0-37.0) g/dL RDW (11.5-14.5) % Plt Count (130-400) K/uL MPV (7.2-11.7) fL Neut % (Auto) (50.0-75.0) % Lymph % (Auto) (20.0-40.0) % [place] % (Auto) (0.0-10.0) % Eos % (Auto) (0.0-4.0) % Baso % (Auto) (0.0-2.0) % Neut # (Auto) (1.8-7.0) K/uL Lymph # (Auto) (1.0-4.3) K/uL [place] # (Auto) (0.0-0.8) K/uL Eos # (Auto) (0.0-0.7) K/uL Baso # (Auto) (0.0-0.2) K/uL APTT (21-34) SECONDS Puncture Site pCO2 (35-45) mm/Hg pO2 40 (30-55) mm/Hg HCO3 (21-28) mmol/L ABG pH (7.35-7.45) ABG Total CO2 (22-28) mmol/L ABG O2 Saturation (95-98) % ABG Base Excess (-2.0-3.0) mmol/L Michele Test ABG Potassium (3.6-5.2) mmol/L VBG pH 7.45 H (7.32-7.43) VBG pCO2 26 L (40-60) mmHg VBG HCO3 21.0 mmol/L VBG Total CO2 18.9 L (22-28) mmol/L VBG O2 Sat (Calc) 77.4 H (40-65) % VBG Base Excess -4.3 L (0.0-2.0) mmol/L VBG Potassium 2.7 L (3.6-5.2) mmol/L A-a O2 Difference mm/Hg Respiratory Index Sodium 145.0 (132-148) mmol/l Chloride 120.0 H (98-107) mmol/L Glucose (65-105) mg/dl Lactate 2.9 H (0.7-2.1) mmol/L Vent Mode Mechanical Rate FiO2 % Tidal Volume PEEP Potassium (3.6-5.2) mmol/L Carbon Dioxide (22-30) mmol/L Anion Gap (10-20) BUN (7-17) mg/dL Creatinine (0.7-1.2) mg/dL Est GFR ( Amer) Est GFR (Non-Af Amer) POC Glucose (mg/dL) 141 H 141 H (65-110) mg/dL Random Glucose (65-105) mg/dL Calcium (8.6-10.4) mg/dl Phosphorus (2.5-4.5) mg/dL Magnesium (1.6-2.3) mg/dL Total Bilirubin (0.2-1.3) mg/dL AST (14-36) U/L ALT (9-52) U/L Alkaline Phosphatase (38-126) U/L Total Protein (6.3-8.3) g/dL Albumin (3.5-5.0) g/dL Globulin (2.2-3.9) gm/dL Albumin/Globulin Ratio (1.0-2.1) Arterial Blood Potassium (3.6-5.2) mmol/L Venous Blood Potassium 2.7 L (3.6-5.2) mmol/L Laboratory Results - last 24 hr 03/18/18 03/18/18 03/18/18 11:20 14:10 18:30 WBC RBC Hgb Hct MCV MCH MCHC RDW Plt Count MPV Neut % (Auto) Lymph % (Auto) [place] % (Auto) Eos % (Auto) Baso % (Auto) Neut # (Auto) Lymph # (Auto) [place] # (Auto) Eos # (Auto) Baso # (Auto) APTT Puncture Site pCO2 pO2 40 HCO3 ABG pH ABG Total CO2 ABG O2 Saturation ABG Base Excess Michele Test ABG Potassium VBG pH 7.45 H VBG pCO2 26 L VBG HCO3 21.0 VBG Total CO2 18.9 L VBG O2 Sat (Calc) 77.4 H VBG Base Excess -4.3 L VBG Potassium 2.7 L A-a O2 Difference Respiratory Index Sodium 145.0 Chloride 120.0 H Glucose Lactate 2.9 H Vent Mode Mechanical Rate FiO2 Tidal Volume PEEP Potassium Carbon Dioxide Anion Gap BUN Creatinine Est GFR ( Amer) Est GFR (Non-Af Amer) POC Glucose (mg/dL) 141 H 141 H Random Glucose Calcium Phosphorus Magnesium Total Bilirubin AST ALT Alkaline Phosphatase Total Protein Albumin Globulin Albumin/Globulin Ratio Arterial Blood Potassium Venous Blood Potassium 2.7 L 03/19/18 03/19/18 03/19/18 00:07 05:05 06:13 WBC RBC Hgb Hct MCV MCH MCHC RDW Plt Count MPV Neut % (Auto) Lymph % (Auto) [place] % (Auto) Eos % (Auto) Baso % (Auto) Neut # (Auto) Lymph # (Auto) [place] # (Auto) Eos # (Auto) Baso # (Auto) APTT Puncture Site Rr pCO2 28 L pO2 109 H HCO3 25.3 ABG pH 7.51 H ABG Total CO2 23.2 ABG O2 Saturation 100.0 H ABG Base Excess 0.4 Michele Test Pos ABG Potassium 3.5 L VBG pH VBG pCO2 VBG HCO3 VBG Total CO2 VBG O2 Sat (Calc) VBG Base Excess VBG Potassium A-a O2 Difference 213.0 Respiratory Index 2.0 Sodium 144.0 Chloride 116.0 H Glucose 175 H Lactate 3.1 H Vent Mode Prvc Mechanical Rate 14 FiO2 50.0 Tidal Volume 450 PEEP 5 Potassium Carbon Dioxide Anion Gap BUN Creatinine Est GFR ( Amer) Est GFR (Non-Af Amer) POC Glucose (mg/dL) 159 H 160 H Random Glucose Calcium Phosphorus Magnesium Total Bilirubin AST ALT Alkaline Phosphatase Total Protein Albumin Globulin Albumin/Globulin Ratio Arterial Blood Potassium 3.5 L Venous Blood Potassium 03/19/18 03/19/18 03/19/18 06:54 06:54 06:54 WBC 13.6 H RBC 3.18 L Hgb 9.6 L Hct 29.4 L MCV 92.6 MCH 30.3 MCHC 32.8 L RDW 16.7 H Plt Count 343 D MPV 11.4 Neut % (Auto) 59.1 Lymph % (Auto) 38.7 [place] % (Auto) 1.3 Eos % (Auto) 0.4 Baso % (Auto) 0.5 Neut # (Auto) 8.0 H Lymph # (Auto) 5.3 H [place] # (Auto) 0.2 Eos # (Auto) 0.1 Baso # (Auto) 0.1 APTT 55 H D Puncture Site pCO2 pO2 HCO3 ABG pH ABG Total CO2 ABG O2 Saturation ABG Base Excess Michele Test ABG Potassium VBG pH VBG pCO2 VBG HCO3 VBG Total CO2 VBG O2 Sat (Calc) VBG Base Excess VBG Potassium A-a O2 Difference Respiratory Index Sodium 142 Chloride 111 H Glucose Lactate Vent Mode Mechanical Rate FiO2 Tidal Volume PEEP Potassium 3.7 Carbon Dioxide 22 Anion Gap 13 BUN 20 H Creatinine 0.6 L Est GFR ( Amer) > 60 Est GFR (Non-Af Amer) > 60 POC Glucose (mg/dL) Random Glucose 173 H Calcium 7.7 L Phosphorus 3.6 Magnesium 1.9 Total Bilirubin 4.7 H AST 37 H D ALT 15 Alkaline Phosphatase 117 Total Protein 5.8 L Albumin 2.4 L Globulin 3.4 Albumin/Globulin Ratio 0.7 L Arterial Blood Potassium Venous Blood Potassium Fingerstick Blood Sugar Results: 141 Critical Care Progress Note - Nutrition Nutrition: Nutrition Category Date Time Status NPO Diet [DIET] Diets 03/06/18 Breakfast Active Assessment/Plan - Assessment and Plan (Free Text) Assessment: Patient is an 82 yo female with a 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 [facility]. She presented to ED with nausea, vomiting, abdominal pain, and lethargy. CT A/P demonstrated significant ischemic bowel. Subsequent CT demonstrated several GI infarcts, including SMA, hepatic, and splenic. She has had 2 ex-laps with lysis of adhesions (03/06) and partial small bowel resection (03/11). Patient continues to be intubated. Plan: Neuro: - Monitor neuro status CV: - R femoral TLC - Off pressors- hemodynamically stable - Monitor vitals- episode of Afib, now sinus tachycardia (90s-100s) Pulm: Fluid overload - Intubated - ABG: pH 7.5, pCO2 28, pO2 109 - CXR (03/19): mod-severe venous congestion, dense confluent airspace opacification in right mid to lower lungs, small right pleural effusion. Cardiomegaly. GI: - NPO - NGT to suction - TPN with 10units of insulin - Dilaudid 0.25 mg IV Q4H PRN - CT angiogram (03/17): Atherosclerotic changes at SMA. Occlusion of right SMA branch. Unchanged since prior studies. - CT Abd/pelvis (03/10): small and large bowel wall thickening consistent with ischemic bowel, free intraperitoneal air, interval progressive increase in extensive SQ gas/air consistent with SQ emphysema, extensive anasarca - GI consulted, - Hem/onc consulted, - Surgery consulted, - s/p 2 ex-laps - Plan for Angiogram to evaluate splanchnics circulation : - I's & O's - Urine output- 1365 mL over last 24 hrs - Replete electrolytes PRN Endo: T2DM - Maintain euglycemia - Hypoglycemia protocol - Accuchecks Q6H with ISS and insulin in TPN Heme: - Heparin drip - Monitor H&H- Hgb stable - Monitor PT/INR/PTT - Hem/onc consulted, ID: - Tmax: 99.7 - Leukocytosis (13.1-->11.3) - downtrending - Trach Cx: Klebsiella - Blood Cx: no growth - Meropenem 500 mg IV Q8H (started 03/10) - Flagyl 500 mg IV Q8H (started 03/12) - ID consulted, PPx: VTE: heparin drip GI: PTX 40 mg IV Q12H Code status: full code- palliative consulted Case discussed with attending, Dr. Júnior Cooley, PGY-1 <Gilberto Callejas S - Last Filed: 03/19/18 18:30> CCU Objective - Vital Signs / Intake & Output Vital Signs (Last 4 hours): Vital Signs Temp Pulse Resp BP Pulse Ox 03/19/18 16:00 100.2 F H 110 H 26 H 98/35 L 100 03/19/18 15:48 112 H 27 H 98/35 L 100 03/19/18 15:00 114 H 21 100 03/19/18 14:48 114 H 26 H 95/37 L 100 Intake and Output (Last 8hrs): Intake & Output 03/19/18 03/19/18 03/19/18 06:59 14:59 22:59 Intake Total 1006.3 554.9 252.1 Output Total 480 155 45 Balance 526.3 399.9 207.1 Weight 220 lb 10.56 oz Intake: IV 250 Intake, IV Amount 756.3 554.9 252.1 Left Wrist 78.3 60.9 26.1 Right Distal IJ 300 100 Right Distal Port 378 294 126 Internal Jugular Right Medial Port 100 100 Internal Jugular Output: Drainage 150 LEFT JEJUNOSTOMY 0 Right Nare 50 abdominal wound drain 100 Urine 330 155 45 Urethral (Tran) 330 155 45 - Medications Active Medications: Active Medications Generic Name Dose Route Start Last Admin Trade Name Freq PRN Reason Stop Dose Admin Dextrose 0 ml 03/06/18 15:02 03/11/18 00:13 Dextrose 50% Inj IV 50 ml STAT PRN Administration Hypoglycemia Protocol Protocol Dextrose 0 gm 03/06/18 15:02 Glutose 15 PO ONCE PRN Hypoglycemia Protocol Protocol Glucagon 0 mg 03/06/18 15:02 Glucagen Diagnostic Kit IM STAT PRN Hypoglycemia Protocol Protocol Hydromorphone HCl 0.5 mg 03/19/18 11:26 Dilaudid IVP Q3 PRN Pain, severe (8-10) Heparin Sodium/Sodium Chloride 25,000 units in 250 mls @ 9.54 mls/hr 03/10/18 23:20 03/19/18 01:12 Heparin 68955 Units/250ml 1/2 Normal Saline IV 9.13 units/kg/hr .Q24H PRN 8.71 mls/hr ADJUST RATE PER PROTOCOL Administration Protocol 10 UNITS/KG/HR Meropenem 500 mg/ Sodium 100 mls @ 100 mls/hr 03/12/18 17:00 03/19/18 16:50 Chloride IVPB 100 mls/hr Q8H ARPIT Administration Protocol Metronidazole 500 mg in 100 mls @ 100 mls/hr 03/13/18 15:00 03/19/18 14:35 Flagyl IVPB 100 mls/hr Q8H ARPIT Administration Protocol Insulin Human Regular 10 unit/ 1,000.1 mls @ 42 mls/hr 03/19/18 18:00 03/19/18 17:57 Amino Acids/Electrolytes/ IV 03/20/18 17:48 42 mls/hr Dextrose .[id number] ARPIT Administration Insulin Aspart 0 unit 03/15/18 12:00 03/19/18 18:20 Novolog SC Not Given Q6 ARPIT Protocol Levothyroxine Sodium 75 mcg 03/15/18 17:00 03/19/18 10:18 Synthroid IVP 75 mcg DAILY ARPIT Administration Pantoprazole Sodium 40 mg 03/07/18 10:00 03/19/18 09:52 Protonix Inj IVP 40 mg Q12H ARPIT Administration Vitamin A 0.5 ea 03/10/18 20:33 03/15/18 21:39 Vitamin A & D Oint Ud Foilpak TOP 0.5 ea Q4 PRN Administration Lip dryness - Patient Studies Lab Studies: Microbiology Studies 03/17/18 00:51 Urine Culture - Final Urine Yeast Species 03/17/18 00:52 Blood Culture - Preliminary Blood NO GROWTH AFTER 48 HOURS 03/17/18 00:52 Blood Culture - Preliminary Blood NO GROWTH AFTER 48 HOURS Lab Studies 03/19/18 03/19/18 03/19/18 Range/Units 17:37 11:15 06:54 WBC (4.8-10.8) K/uL RBC (3.80-5.20) Mil/uL Hgb (11.0-16.0) g/dL Hct (34.0-47.0) % MCV (81.0-99.0) fL MCH (27.0-31.0) pg MCHC (33.0-37.0) g/dL RDW (11.5-14.5) % Plt Count (130-400) K/uL MPV (7.2-11.7) fL Neut % (Auto) (50.0-75.0) % Lymph % (Auto) (20.0-40.0) % [place] % (Auto) (0.0-10.0) % Eos % (Auto) (0.0-4.0) % Baso % (Auto) (0.0-2.0) % Neut # (Auto) (1.8-7.0) K/uL Lymph # (Auto) (1.0-4.3) K/uL [place] # (Auto) (0.0-0.8) K/uL Eos # (Auto) (0.0-0.7) K/uL Baso # (Auto) (0.0-0.2) K/uL APTT 55 H D (21-34) SECONDS Puncture Site pCO2 (35-45) mm/Hg pO2 (80-100) mm/Hg HCO3 (21-28) mmol/L ABG pH (7.35-7.45) ABG Total CO2 (22-28) mmol/L ABG O2 Saturation (95-98) % ABG Base Excess (-2.0-3.0) mmol/L Michele Test ABG Potassium (3.6-5.2) mmol/L A-a O2 Difference mm/Hg Respiratory Index Sodium (132-148) mmol/l Chloride (98-107) mmol/L Glucose (65-105) mg/dl Lactate (0.7-2.1) mmol/L Vent Mode Mechanical Rate FiO2 % Tidal Volume PEEP Potassium (3.6-5.2) mmol/L Carbon Dioxide (22-30) mmol/L Anion Gap (10-20) BUN (7-17) mg/dL Creatinine (0.7-1.2) mg/dL Est GFR ( Amer) Est GFR (Non-Af Amer) POC Glucose (mg/dL) 111 H 161 H (65-110) mg/dL Random Glucose (65-105) mg/dL Calcium (8.6-10.4) mg/dl Phosphorus (2.5-4.5) mg/dL Magnesium (1.6-2.3) mg/dL Total Bilirubin (0.2-1.3) mg/dL AST (14-36) U/L ALT (9-52) U/L Alkaline Phosphatase (38-126) U/L Total Protein (6.3-8.3) g/dL Albumin (3.5-5.0) g/dL Globulin (2.2-3.9) gm/dL Albumin/Globulin Ratio (1.0-2.1) Arterial Blood Potassium (3.6-5.2) mmol/L 03/19/18 03/19/18 03/19/18 Range/Units 06:54 06:54 06:13 WBC 13.6 H (4.8-10.8) K/uL RBC 3.18 L (3.80-5.20) Mil/uL Hgb 9.6 L (11.0-16.0) g/dL Hct 29.4 L (34.0-47.0) % MCV 92.6 (81.0-99.0) fL MCH 30.3 (27.0-31.0) pg MCHC 32.8 L (33.0-37.0) g/dL RDW 16.7 H (11.5-14.5) % Plt Count 343 D (130-400) K/uL MPV 11.4 (7.2-11.7) fL Neut % (Auto) 59.1 (50.0-75.0) % Lymph % (Auto) 38.7 (20.0-40.0) % [place] % (Auto) 1.3 (0.0-10.0) % Eos % (Auto) 0.4 (0.0-4.0) % Baso % (Auto) 0.5 (0.0-2.0) % Neut # (Auto) 8.0 H (1.8-7.0) K/uL Lymph # (Auto) 5.3 H (1.0-4.3) K/uL [place] # (Auto) 0.2 (0.0-0.8) K/uL Eos # (Auto) 0.1 (0.0-0.7) K/uL Baso # (Auto) 0.1 (0.0-0.2) K/uL APTT (21-34) SECONDS Puncture Site pCO2 (35-45) mm/Hg pO2 (80-100) mm/Hg HCO3 (21-28) mmol/L ABG pH (7.35-7.45) ABG Total CO2 (22-28) mmol/L ABG O2 Saturation (95-98) % ABG Base Excess (-2.0-3.0) mmol/L Michele Test ABG Potassium (3.6-5.2) mmol/L A-a O2 Difference mm/Hg Respiratory Index Sodium 142 (132-148) mmol/l Chloride 111 H (98-107) mmol/L Glucose (65-105) mg/dl Lactate (0.7-2.1) mmol/L Vent Mode Mechanical Rate FiO2 % Tidal Volume PEEP Potassium 3.7 (3.6-5.2) mmol/L Carbon Dioxide 22 (22-30) mmol/L Anion Gap 13 (10-20) BUN 20 H (7-17) mg/dL Creatinine 0.6 L (0.7-1.2) mg/dL Est GFR ( Amer) > 60 Est GFR (Non-Af Amer) > 60 POC Glucose (mg/dL) 160 H (65-110) mg/dL Random Glucose 173 H (65-105) mg/dL Calcium 7.7 L (8.6-10.4) mg/dl Phosphorus 3.6 (2.5-4.5) mg/dL Magnesium 1.9 (1.6-2.3) mg/dL Total Bilirubin 4.7 H (0.2-1.3) mg/dL AST 37 H D (14-36) U/L ALT 15 (9-52) U/L Alkaline Phosphatase 117 (38-126) U/L Total Protein 5.8 L (6.3-8.3) g/dL Albumin 2.4 L (3.5-5.0) g/dL Globulin 3.4 (2.2-3.9) gm/dL Albumin/Globulin Ratio 0.7 L (1.0-2.1) Arterial Blood Potassium (3.6-5.2) mmol/L 03/19/18 03/19/18 03/18/18 Range/Units 05:05 00:07 18:30 WBC (4.8-10.8) K/uL RBC (3.80-5.20) Mil/uL Hgb (11.0-16.0) g/dL Hct (34.0-47.0) % MCV (81.0-99.0) fL MCH (27.0-31.0) pg MCHC (33.0-37.0) g/dL RDW (11.5-14.5) % Plt Count (130-400) K/uL MPV (7.2-11.7) fL Neut % (Auto) (50.0-75.0) % Lymph % (Auto) (20.0-40.0) % [place] % (Auto) (0.0-10.0) % Eos % (Auto) (0.0-4.0) % Baso % (Auto) (0.0-2.0) % Neut # (Auto) (1.8-7.0) K/uL Lymph # (Auto) (1.0-4.3) K/uL [place] # (Auto) (0.0-0.8) K/uL Eos # (Auto) (0.0-0.7) K/uL Baso # (Auto) (0.0-0.2) K/uL APTT (21-34) SECONDS Puncture Site Rr pCO2 28 L (35-45) mm/Hg pO2 109 H (80-100) mm/Hg HCO3 25.3 (21-28) mmol/L ABG pH 7.51 H (7.35-7.45) ABG Total CO2 23.2 (22-28) mmol/L ABG O2 Saturation 100.0 H (95-98) % ABG Base Excess 0.4 (-2.0-3.0) mmol/L Michele Test Pos ABG Potassium 3.5 L (3.6-5.2) mmol/L A-a O2 Difference 213.0 mm/Hg Respiratory Index 2.0 Sodium 144.0 (132-148) mmol/l Chloride 116.0 H (98-107) mmol/L Glucose 175 H (65-105) mg/dl Lactate 3.1 H (0.7-2.1) mmol/L Vent Mode Prvc Mechanical Rate 14 FiO2 50.0 % Tidal Volume 450 PEEP 5 Potassium (3.6-5.2) mmol/L Carbon Dioxide (22-30) mmol/L Anion Gap (10-20) BUN (7-17) mg/dL Creatinine (0.7-1.2) mg/dL Est GFR ( Amer) Est GFR (Non-Af Amer) POC Glucose (mg/dL) 159 H 141 H (65-110) mg/dL Random Glucose (65-105) mg/dL Calcium (8.6-10.4) mg/dl Phosphorus (2.5-4.5) mg/dL Magnesium (1.6-2.3) mg/dL Total Bilirubin (0.2-1.3) mg/dL AST (14-36) U/L ALT (9-52) U/L Alkaline Phosphatase (38-126) U/L Total Protein (6.3-8.3) g/dL Albumin (3.5-5.0) g/dL Globulin (2.2-3.9) gm/dL Albumin/Globulin Ratio (1.0-2.1) Arterial Blood Potassium 3.5 L (3.6-5.2) mmol/L Laboratory Results - last 24 hr 03/18/18 03/19/18 03/19/18 18:30 00:07 05:05 WBC RBC Hgb Hct MCV MCH MCHC RDW Plt Count MPV Neut % (Auto) Lymph % (Auto) [place] % (Auto) Eos % (Auto) Baso % (Auto) Neut # (Auto) Lymph # (Auto) [place] # (Auto) Eos # (Auto) Baso # (Auto) APTT Puncture Site Rr pCO2 28 L pO2 109 H HCO3 25.3 ABG pH 7.51 H ABG Total CO2 23.2 ABG O2 Saturation 100.0 H ABG Base Excess 0.4 Michele Test Pos ABG Potassium 3.5 L A-a O2 Difference 213.0 Respiratory Index 2.0 Sodium 144.0 Chloride 116.0 H Glucose 175 H Lactate 3.1 H Vent Mode Prvc Mechanical Rate 14 FiO2 50.0 Tidal Volume 450 PEEP 5 Potassium Carbon Dioxide Anion Gap BUN Creatinine Est GFR ( Amer) Est GFR (Non-Af Amer) POC Glucose (mg/dL) 141 H 159 H Random Glucose Calcium Phosphorus Magnesium Total Bilirubin AST ALT Alkaline Phosphatase Total Protein Albumin Globulin Albumin/Globulin Ratio Arterial Blood Potassium 3.5 L 03/19/18 03/19/18 03/19/18 06:13 06:54 06:54 WBC 13.6 H RBC 3.18 L Hgb 9.6 L Hct 29.4 L MCV 92.6 MCH 30.3 MCHC 32.8 L RDW 16.7 H Plt Count 343 D MPV 11.4 Neut % (Auto) 59.1 Lymph % (Auto) 38.7 [place] % (Auto) 1.3 Eos % (Auto) 0.4 Baso % (Auto) 0.5 Neut # (Auto) 8.0 H Lymph # (Auto) 5.3 H [place] # (Auto) 0.2 Eos # (Auto) 0.1 Baso # (Auto) 0.1 APTT Puncture Site pCO2 pO2 HCO3 ABG pH ABG Total CO2 ABG O2 Saturation ABG Base Excess Michele Test ABG Potassium A-a O2 Difference Respiratory Index Sodium 142 Chloride 111 H Glucose Lactate Vent Mode Mechanical Rate FiO2 Tidal Volume PEEP Potassium 3.7 Carbon Dioxide 22 Anion Gap 13 BUN 20 H Creatinine 0.6 L Est GFR ( Amer) > 60 Est GFR (Non-Af Amer) > 60 POC Glucose (mg/dL) 160 H Random Glucose 173 H Calcium 7.7 L Phosphorus 3.6 Magnesium 1.9 Total Bilirubin 4.7 H AST 37 H D ALT 15 Alkaline Phosphatase 117 Total Protein 5.8 L Albumin 2.4 L Globulin 3.4 Albumin/Globulin Ratio 0.7 L Arterial Blood Potassium 03/19/18 03/19/18 03/19/18 06:54 11:15 17:37 WBC RBC Hgb Hct MCV MCH MCHC RDW Plt Count MPV Neut % (Auto) Lymph % (Auto) [place] % (Auto) Eos % (Auto) Baso % (Auto) Neut # (Auto) Lymph # (Auto) [place] # (Auto) Eos # (Auto) Baso # (Auto) APTT 55 H D Puncture Site pCO2 pO2 HCO3 ABG pH ABG Total CO2 ABG O2 Saturation ABG Base Excess Michele Test ABG Potassium A-a O2 Difference Respiratory Index Sodium Chloride Glucose Lactate Vent Mode Mechanical Rate FiO2 Tidal Volume PEEP Potassium Carbon Dioxide Anion Gap BUN Creatinine Est GFR ( Amer) Est GFR (Non-Af Amer) POC Glucose (mg/dL) 161 H 111 H Random Glucose Calcium Phosphorus Magnesium Total Bilirubin AST ALT Alkaline Phosphatase Total Protein Albumin Globulin Albumin/Globulin Ratio Arterial Blood Potassium Critical Care Progress Note - Nutrition Nutrition: Nutrition Category Date Time Status NPO Diet [DIET] Diets 03/06/18 Breakfast Active Attending/Attestation - Attestation I have personally seen and examined this patient.: Yes I have fully participated in the care of the patient.: Yes I have reviewed all pertinent clinical information: Yes Notes (Text): 03/19/18 18:29 patient seen and examined in the intensive care unit. 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
[2018-03-19] MEDS: Levothyroxine 100 mcg (0.1 mg) Inj IVP SCH (10:18)
--- NOTE | 2018-03-19 12:11 | CP.PCM.PN ---
Subjective - Date & Time of Evaluation Date of Evaluation: 03/19/18 Time of Evaluation: 08:00 - Subjective Subjective: Surgery: Dr. Freitas Pt seen and examined. Remains intubated & sedated in the ICU. Currently on heparin drip & TPN. Clinically pt has remained hemodynamically stable with no pressor requirement and slightly improved UOP. Continues to have tachycardia with low grade fevers. Objective - Vital Signs/Intake and Output Vital Signs (last 24 hours): Temp Pulse Resp BP Pulse Ox 98.8 F 118 H 23 124/44 L 100 03/19/18 04:00 03/19/18 10:00 03/19/18 10:00 03/19/18 09:48 03/19/18 10:00 Intake and Output: 03/19/18 03/19/18 06:59 18:59 Intake Total 1209.1 252.1 Output Total 970 55 Balance 239.1 197.1 - Medications Medications: Current Medications Dextrose (Dextrose 50% Inj) 0 ml IV STAT PRN; Protocol PRN Reason: Hypoglycemia Protocol Last Admin: 03/11/18 00:13 Dose: 50 ml Dextrose (Glutose 15) 0 gm PO ONCE PRN; Protocol PRN Reason: Hypoglycemia Protocol Glucagon (Glucagen Diagnostic Kit) 0 mg IM STAT PRN; Protocol PRN Reason: Hypoglycemia Protocol Hydromorphone HCl (Dilaudid) 0.5 mg IVP Q3 PRN PRN Reason: Pain, severe (8-10) Heparin Sodium/Sodium Chloride (Heparin 02637 Units/250ml 1/2 Normal Saline) 25,000 units in 250 mls @ 9.54 mls/hr IV .Q24H PRN; Protocol PRN Reason: ADJUST RATE PER PROTOCOL Last Admin: 03/19/18 01:12 Dose: 9.13 units/kg/hr, 8.71 mls/hr Meropenem 500 mg/ Sodium (Chloride) 100 mls @ 100 mls/hr IVPB Q8H [facility]; Protocol Last Admin: 03/19/18 09:52 Dose: 100 mls/hr Metronidazole (Flagyl) 500 mg in 100 mls @ 100 mls/hr IVPB Q8H [facility]; Protocol Last Admin: 03/19/18 06:02 Dose: 100 mls/hr Insulin Human Regular 10 unit/Amino Acids/Electrolytes/Dextrose 1,000.1 mls @ 42 mls/hr IV .[id number] [facility] Stop: 03/20/18 17:48 Insulin Aspart (Novolog) 0 unit SC Q6 ARPIT; Protocol Last Admin: 03/19/18 06:15 Dose: 2 units Levothyroxine Sodium (Synthroid) 75 mcg IVP DAILY ARPIT Last Admin: 03/19/18 10:18 Dose: 75 mcg Pantoprazole Sodium (Protonix Inj) 40 mg IVP Q12H ARPIT Last Admin: 03/19/18 09:52 Dose: 40 mg Potassium Chloride (K-Dur 20 Meq Er Tab) 40 meq PO BRK ARPIT Last Admin: 03/18/18 08:00 Dose: Not Given Vitamin A (Vitamin A & D Oint Ud Foilpak) 0.5 ea TOP Q4 PRN PRN Reason: Lip dryness Last Admin: 03/15/18 21:39 Dose: 0.5 ea - Labs Labs: 03/19/18 06:54 03/19/18 06:54 PT 15.7 SECONDS (9.7-12.2) H 03/11/18 04:15 INR 1.4 03/11/18 04:15 APTT 55 SECONDS (21-34) H D 03/19/18 06:54 - Constitutional Appears: No Acute Distress - Cardiovascular Exam Cardiovascular Exam: Tachycardia - GI/Abdominal Exam GI & Abdominal Exam: Soft, Tenderness (diffusely). absent: Distended Additional comments: midline incision draining seropurulent fluid with ostomy appliance in place to collect drainage, jejunostomy tube in place LLQ - Extremities Exam Extremities Exam: Pedal Edema - Skin Skin Exam: Dry, Warm Assessment and Plan - Assessment and Plan (Free Text) Assessment: 82F with mesenteric ischemia s/p Ex-Lap x 2 with partial small bowel resection; POD#13 Plan: - will f/u official read on CTA & discuss possible intervention with IR if amenable - cont ABX - cont to monitor UOP with goal >30cc/hr - d/w Dr. Fortino Kate
--- NOTE | 2018-03-19 14:44 | CT ---
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 TECHNIQUE: Technique: CT angiography of the abdomen, pelvis and bilateral lower extremities performed in the arterial phase of enhancement. Coronal and sagittal reformats, and well as rotating MIP images of the vessels generated at the workstation. Intravenous contrast dose: 100 mL Visipaque 320 Radiation dose: Total exam DLP = 1023.6 mGy-cm. This CT exam was performed using one or more of the following dose reduction techniques: Automated exposure control, adjustment of the mA and/or kV according to patient size, and/or use of iterative reconstruction technique. FINDINGS: CT ANGIOGRAPHY: The examination is technically limited by patient motion artifact and beam hardening artifact likely from external leads. ABDOMINAL AORTA:: No evidence of aortic aneurysm. There is atherosclerotic calcification of the abdominal aorta. MAJOR AORTIC BRANCHES: Celiac [place]: There is some atherosclerotic calcification and no significant demonstrated stenosis at the origin of the celiac axis. Superior mesenteric artery: The SMA is patent. 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 This is identical to the branch vessel demonstrated on the previous CT examination of 03/07/2018. The remaining mesenteric arterial branches appear grossly patent. Inferior mesenteric artery: Unremarkable. Renal arteries: Unremarkable. PELVIC ARTERIES: Right Common Iliac: Unremarkable. Right External Iliac: Unremarkable. Right Internal Iliac: Unremarkable. Left Common Iliac: Unremarkable. Left External Iliac: Unremarkable. Left Internal Iliac: Unremarkable. NON-ANGIOGRAPHIC ASPECT OF THE EXAM: LOWER THORAX: Bilateral small to moderate pleural effusions. Bilateral lower lobe compressive atelectasis. Nasogastric tube noted traversing the thoracic esophagus to the stomach. LIVER: The previously demonstrated wedge-shaped area of diminished attenuation in the posterior right hepatic lobe is not demonstrated on the current examination. The liver is diffusely diminished in attenuation consistent with fatty infiltration. There is no mass or biliary dilatation seen. The contour is smooth. GALLBLADDER AND BILE DUCTS: Status post cholecystectomy. There is fluid and a small amount of free gas in the gallbladder fossa. There is no generalized pneumoperitoneum. PANCREAS: Status post Whipple procedure. Absent pancreatic head. No pancreatic mass or ductal dilatation. 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 Linear areas of absent enhancement demonstrated. Normal size. No mass. ADRENALS: Unremarkable. No mass. KIDNEYS AND URETERS: Wedge-shaped areas of diminished or absent enhancement are again noted in both kidneys. Evaluation is limited by artifact described above. Suspect infarcts in both kidneys. Rule out pyelonephritis. No renal mass, calculus or hydronephrosis. STOMACH AND BOWEL: Nonspecific colitis. Marked mural thickening of the transverse and rectosigmoid and descending colon. Evaluation of bowel grossly limited by the absence of oral contrast opacification and artifact described above. Right: Poorly visualized. There has been surgical resection of small bowel loops. There is some residual pneumatosis coli seen on series 3, image 94 through 107, on the right side. Previously noted portal venous and mesenteric venous gas is no longer evident. APPENDIX: Not identified PERITONEUM: Mild ascites. Trace pneumoperitoneum in the gallbladder fossa as described above. No generalized pneumoperitoneum. Surgical drain entering through the lower left anterior abdominal wall LYMPH NODES: Unremarkable. No enlarged lymph nodes. BLADDER: Nondistended REPRODUCTIVE: Postmenopausal uterus BONES: No acute fracture. OTHER FINDINGS: None. 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 Patient is status post interval removal of small bowel loops. There is extensive colitis, nonspecific. Status post Whipple procedure. Trace pneumoperitoneum. Ascites. Bilateral small renal infarcts. Splenic infarcts. Typical drain. Nasogastric tube. Bilateral pleural effusion. Bilateral lower lobe compressive atelectasis.
[2018-03-19] MEDS ORDERED: Albumin Human 25% (12.5 gm/50 ml) IV ONE (17:44)
[2018-03-19] MEDS ORDERED: TPN#8 IV SCH (18:00)
[2018-03-19] MEDS: Potassium Chloride 20 mEq ER Tab PO SCH (18:22)
--- NOTE | 2018-03-19 19:41 | CP.PCM.PN ---
Subjective - Date & Time of Evaluation Date of Evaluation: 03/19/18 Time of Evaluation: 12:45 - Subjective Subjective: clinically same Objective - Vital Signs/Intake and Output Vital Signs (last 24 hours): Temp Pulse Resp BP Pulse Ox 100.2 F H 110 H 26 H 98/35 L 100 03/19/18 16:00 03/19/18 16:00 03/19/18 16:00 03/19/18 16:00 03/19/18 16:00 Intake and Output: 03/19/18 03/20/18 18:59 06:59 Intake Total 807.0 Output Total 200 Balance 607.0 - Medications Medications: Current Medications Dextrose (Dextrose 50% Inj) 0 ml IV STAT PRN; Protocol PRN Reason: Hypoglycemia Protocol Last Admin: 03/11/18 00:13 Dose: 50 ml Dextrose (Glutose 15) 0 gm PO ONCE PRN; Protocol PRN Reason: Hypoglycemia Protocol Glucagon (Glucagen Diagnostic Kit) 0 mg IM STAT PRN; Protocol PRN Reason: Hypoglycemia Protocol Hydromorphone HCl (Dilaudid) 0.5 mg IVP Q3 PRN PRN Reason: Pain, severe (8-10) Heparin Sodium/Sodium Chloride (Heparin 94024 Units/250ml 1/2 Normal Saline) 25,000 units in 250 mls @ 9.54 mls/hr IV .Q24H PRN; Protocol PRN Reason: ADJUST RATE PER PROTOCOL Last Admin: 03/19/18 01:12 Dose: 9.13 units/kg/hr, 8.71 mls/hr Meropenem 500 mg/ Sodium (Chloride) 100 mls @ 100 mls/hr IVPB Q8H [facility]; Protocol Last Admin: 03/19/18 16:50 Dose: 100 mls/hr Metronidazole (Flagyl) 500 mg in 100 mls @ 100 mls/hr IVPB Q8H [facility]; Protocol Last Admin: 03/19/18 14:35 Dose: 100 mls/hr Insulin Human Regular 10 unit/Amino Acids/Electrolytes/Dextrose 1,000.1 mls @ 42 mls/hr IV .[id number] [facility] Stop: 03/20/18 17:48 Last Admin: 03/19/18 17:57 Dose: 42 mls/hr Insulin Aspart (Novolog) 0 unit SC Q6 [facility]; Protocol Last Admin: 03/19/18 18:20 Dose: Not Given Levothyroxine Sodium (Synthroid) 75 mcg IVP DAILY ARPIT Last Admin: 03/19/18 10:18 Dose: 75 mcg Pantoprazole Sodium (Protonix Inj) 40 mg IVP Q12H [facility] Last Admin: 03/19/18 09:52 Dose: 40 mg Vitamin A (Vitamin A & D Oint Ud Foilpak) 0.5 ea TOP Q4 PRN PRN Reason: Lip dryness Last Admin: 03/15/18 21:39 Dose: 0.5 ea - Labs Labs: 03/19/18 06:54 03/19/18 06:54 PT 15.7 SECONDS (9.7-12.2) H 03/11/18 04:15 INR 1.4 03/11/18 04:15 APTT 55 SECONDS (21-34) H D 03/19/18 06:54 - Constitutional Appears: Well - Head Exam Head Exam: ATRAUMATIC, NORMAL INSPECTION, NORMOCEPHALIC - Eye Exam Eye Exam: EOMI, Normal appearance, PERRL Pupil Exam: NORMAL ACCOMODATION, PERRL - ENT Exam ENT Exam: Mucous Membranes Moist, Normal Exam - Neck Exam Neck Exam: Full ROM, Normal Inspection. absent: Lymphadenopathy - Respiratory Exam Respiratory Exam: Decreased Breath Sounds - Cardiovascular Exam Cardiovascular Exam: REGULAR RHYTHM, +S1, +S2 - GI/Abdominal Exam GI & Abdominal Exam: Soft, Diminished Bowel Sounds - Rectal Exam Rectal Exam: Deferred
[2018-03-20] MEDS: Meropenem 500 MG in Sodium Chloride 0.9% 100 ML IVPB SCH ×3 (00:40→17:40)
[2018-03-20] MEDS: (Novolog) Insulin Aspart, Recombinant 100 u/ml 10 ml vial SC SCH ×4 (00:42→18:42)
[2018-03-20 04:42] LABS: ABG ALLEN TEST POS; ARTERIAL BLOOD GAS O2 SAT 96.2 % (95-98); ARTERIAL BLOOD GAS PCO2 28 mm/Hg (35-45); ARTERIAL BLOOD GAS PH 7.42 (7.35-7.45); ARTERIAL BLOOD GAS PO2 75 mm/Hg (80-100); ARTERIAL BLOOD GAS TCO2 19.1 mmol/L (22-28)
[2018-03-20] MEDS: metroNIDAZOLE IV 500 mg/100 ml 500 MG/100 ML BAG IVPB SCH ×3 (05:59→22:32)
[2018-03-20] MEDS: HYDROmorphone 0.5 mg/0.5 ml ISec IVP PRN ×2 (05:59→14:03)
[2018-03-20 06:25] LABS: BASO # 0.2 K/uL (0.0-0.2); BASO % 0.5 % (0.0-2.0); EOS % 0.1 % (0.0-4.0); HEMOGLOBIN 8.4 g/dL (11.0-16.0); LYMPH # 4.4 K/uL (1.0-4.3); LYMPH % 15.1 % (20.0-40.0); MEAN CORPUSCULAR HEMOGLOBIN 31.4 pg (27.0-31.0); MEAN CORPUSCULAR HGB CONC 33.7 g/dL (33.0-37.0); MEAN PLATELET VOLUME 11.3 fL (7.2-11.7); MONO % 3.4 % (0.0-10.0); NEUT # 23.7 K/uL (1.8-7.0); NEUT % 80.9 % (50.0-75.0); RBC 2.67 Mil/uL (3.80-5.20); RED CELL DISTRIBUTION WIDTH 16.7 % (11.5-14.5); WHITE BLOOD COUNT 29.3 K/uL (4.8-10.8)
[2018-03-20 06:36] LABS: ALB/GLOB RATIO 0.6 (1.0-2.1); ALT/SGPT 18 U/L (9-52); AST/SGOT 25 U/L (14-36); BLOOD UREA NITROGEN 19 mg/dL (7-17); CALCIUM 7.5 mg/dl (8.6-10.4); GFR NON-AFRICAN AMERICAN > 60
[2018-03-20] MEDS: Heparin25000 units/250ml 1/2NS 25,000 UNITS/250 ML BAG IV PRN (08:22)
--- NOTE | 2018-03-20 08:45 | CP.PCM.PN ---
Subjective - Date & Time of Evaluation Date of Evaluation: 03/20/18 Time of Evaluation: 07:00 - Subjective Subjective: GENERAL SURGERY PROGRESS NOTE FOR DR. CORDERO Pt seen and examined in ICU. Remains intubated. On heparin drip and TPN. Overnight outputs: Tran: 280cc Abdominal wound: 250cc NG tube: 20cc Objective - Vital Signs/Intake and Output Vital Signs (last 24 hours): Temp Pulse Resp BP Pulse Ox 98 F 96 H 16 144/60 100 03/20/18 04:00 03/20/18 08:00 03/20/18 08:00 03/20/18 07:48 03/20/18 08:00 Intake and Output: 03/20/18 03/20/18 06:59 18:59 Intake Total 660.0 51.6 Output Total 795 Balance -135.0 51.6 - Medications Medications: Current Medications Dextrose (Dextrose 50% Inj) 0 ml IV STAT PRN; Protocol PRN Reason: Hypoglycemia Protocol Last Admin: 03/11/18 00:13 Dose: 50 ml Dextrose (Glutose 15) 0 gm PO ONCE PRN; Protocol PRN Reason: Hypoglycemia Protocol Glucagon (Glucagen Diagnostic Kit) 0 mg IM STAT PRN; Protocol PRN Reason: Hypoglycemia Protocol Hydromorphone HCl (Dilaudid) 0.5 mg IVP Q3 PRN PRN Reason: Pain, severe (8-10) Last Admin: 03/20/18 05:59 Dose: 0.5 mg Meropenem 500 mg/ Sodium (Chloride) 100 mls @ 100 mls/hr IVPB Q8H [facility]; Protocol Last Admin: 03/20/18 00:40 Dose: 100 mls/hr Metronidazole (Flagyl) 500 mg in 100 mls @ 100 mls/hr IVPB Q8H [facility]; Protocol Last Admin: 03/20/18 05:59 Dose: 100 mls/hr Insulin Human Regular 10 unit/Amino Acids/Electrolytes/Dextrose 1,000.1 mls @ 42 mls/hr IV .[id number] [facility] Stop: 03/20/18 17:48 Last Admin: 03/19/18 17:57 Dose: 42 mls/hr Heparin Sodium/Sodium Chloride (Heparin 87779 Units/250ml 1/2 Normal Saline) 25,000 units in 250 mls @ 9.61 mls/hr IV .Q24H PRN; Protocol PRN Reason: PROTOCOL Last Admin: 03/20/18 08:22 Dose: 9 units/kg/hr, 9.61 mls/hr Potassium Chloride (Potassium Chloride 20 Meq/100 Ml) 20 meq in 100 mls @ 50 mls/hr IVPB ONCE ONE Stop: 03/20/18 09:45 Last Admin: 03/20/18 08:20 Dose: 50 mls/hr Insulin Aspart (Novolog) 0 unit SC Q6 ARPIT; Protocol Last Admin: 03/20/18 07:34 Dose: 2 units Levothyroxine Sodium (Synthroid) 75 mcg IVP DAILY ARPIT Last Admin: 03/19/18 10:18 Dose: 75 mcg Pantoprazole Sodium (Protonix Inj) 40 mg IVP Q12H [facility]PIT Last Admin: 03/19/18 23:00 Dose: 40 mg Vitamin A (Vitamin A & D Oint Ud Foilpak) 0.5 ea TOP Q4 PRN PRN Reason: Lip dryness Last Admin: 03/15/18 21:39 Dose: 0.5 ea - Labs Labs: 03/20/18 06:15 03/20/18 06:12 PT 15.7 SECONDS (9.7-12.2) H 03/11/18 04:15 INR 1.4 03/11/18 04:15 APTT 63 SECONDS (21-34) H D 03/20/18 06:21 - Constitutional Appears: No Acute Distress - Respiratory Exam Respiratory Exam: NORMAL BREATHING PATTERN (on mechanical ventilation). absent: Respiratory Distress - Cardiovascular Exam Cardiovascular Exam: +S1, +S2 - GI/Abdominal Exam GI & Abdominal Exam: Distended, Tenderness Additional comments: Abdominal wound with brown - stool appearing liquid draining into bag Assessment and Plan - Assessment and Plan (Free Text) Assessment: 82F with mesenteric ischemia, necrotic bowel s/p 2 ex laps with resection of small bowel, left in discontinuity Plan: - Continue medical management per primary and ICU team - Continue heparin drip, antibiotics - Continue to monitor output - Trend labs, supplement potassium, phosphorus, and magnesium aggressively - CTA reviewed. Per Dr. Mejía- no intervention Further recommendations per Dr. Fortino Null PGY-4
[2018-03-20] MEDS: Levothyroxine 100 mcg (0.1 mg) Inj IVP SCH (09:44)
[2018-03-20] MEDS: Albumin Human 25% (12.5 gm/50 ml) IV SCH ×3 (10:56→21:25)
--- NOTE | 2018-03-20 13:25 | RAD ---
Date of service: 03/20/2018 HISTORY: pt is intubated COMPARISON: Comparison is made with 03/19/2018 FINDINGS: LUNGS: Appropriate position of the ETT is again noted. No significant interval changes in the lungs since the previous study. Partial atelectasis of the right lower lobe is noted associated with elevation of the right hemidiaphragm. Small perihilar opacities are again noted. PLEURA: No significant pleural effusion identified, no pneumothorax apparent. CARDIOVASCULAR: No aortic atherosclerotic calcification present. Normal cardiac size. No pulmonary vascular congestion. OSSEOUS STRUCTURES: No significant abnormalities. VISUALIZED UPPER ABDOMEN: There is a NG tube seen extending to the upper abdomen. OTHER FINDINGS: There is right jugular central line in place. IMPRESSION: Possible right lower lobe partial atelectasis. Was no significant interval changes.
--- NOTE | 2018-03-20 16:13 | CP.CCUPN ---
CCU Objective - Vital Signs / Intake & Output Vital Signs (Last 4 hours): Vital Signs Pulse Resp BP Pulse Ox 03/20/18 16:00 91 H 20 100 03/20/18 15:48 90 22 136/47 L 100 03/20/18 15:00 87 21 100 03/20/18 14:49 91 H 25 H 126/42 L 100 03/20/18 14:00 91 H 19 100 03/20/18 13:49 92 H 25 H 131/41 L 100 03/20/18 13:00 93 H 27 H 100 03/20/18 12:49 91 H 30 H 141/48 L 100 Intake and Output (Last 8hrs): Intake & Output 03/20/18 03/20/18 03/20/18 06:59 14:59 22:59 Intake Total 457.2 459.6 Output Total 470 125 Balance -12.8 334.6 Weight 235 lb 6.4 oz Intake: Intake, IV Amount 457.2 459.6 Left Wrist 79.2 57.6 Right Distal Port 378 252 Internal Jugular Right Medial Port 150 Internal Jugular Output: Drainage 270 LEFT JEJUNOSTOMY 0 Right Nare 20 abdominal wound drain 250 Urine 200 125 Urethral (Tran) 200 125 Other: # Bowel Movements 1 - Physical Exam Head: Positive for: Atraumatic, Normocephalic Pupils: Positive for: PERRL Extroacular Muscles: Positive for: EOMI Mouth: Positive for: Moist Mucous Membranes Nose (External): Positive for: Other (NGT) Respiratory/Chest: Positive for: Clear to Auscultation, Other (on vent, intubated). Negative for: Respiratory Distress Cardiovascular: Positive for: Normal S1, S2, Tachycardic. Negative for: Murmurs Abdomen: Positive for: Tenderness (oozing from abdominal surgical site.), Distention, Other (Surgical site with yellow fluids) Upper Extremity: Positive for: Edema Lower Extremity: Positive for: Edema, Other (R TLC) Neurological: Positive for: Other (sedated) Skin: Positive for: Warm, Normal Color Psychiatric: Positive for: Alert - Medications Active Medications: Active Medications Generic Name Dose Route Start Last Admin Trade Name Freq PRN Reason Stop Dose Admin Albumin Human 25 gm 03/20/18 10:00 03/20/18 15:57 Albumin Human 25% (12.5 Gm/50 Ml) IV 25 gm Q6H [facility] Administration Dextrose 0 ml 03/06/18 15:02 03/11/18 00:13 Dextrose 50% Inj IV 50 ml STAT PRN Administration Hypoglycemia Protocol Protocol Dextrose 0 gm 03/06/18 15:02 Glutose 15 PO ONCE PRN Hypoglycemia Protocol Protocol Glucagon 0 mg 03/06/18 15:02 Glucagen Diagnostic Kit IM STAT PRN Hypoglycemia Protocol Protocol Hydromorphone HCl 0.5 mg 03/19/18 11:26 03/20/18 14:03 Dilaudid IVP 0.5 mg Q3 PRN Administration Pain, severe (8-10) Meropenem 500 mg/ Sodium 100 mls @ 100 mls/hr 03/12/18 17:00 03/20/18 09:43 Chloride IVPB 100 mls/hr Q8H [facility] Administration Protocol Metronidazole 500 mg in 100 mls @ 100 mls/hr 03/13/18 15:00 03/20/18 14:03 Flagyl IVPB 100 mls/hr Q8H [facility] Administration Protocol Insulin Human Regular 10 unit/ 1,000.1 mls @ 42 mls/hr 03/19/18 18:00 03/19/18 17:57 Amino Acids/Electrolytes/ IV 03/20/18 17:48 42 mls/hr Dextrose .[id number] [facility] Administration Heparin Sodium/Sodium Chloride 25,000 units in 250 mls @ 9.61 mls/hr 03/20/18 06:38 03/20/18 08:22 Heparin 71769 Units/250ml 1/2 Normal Saline IV 9 units/kg/hr .Q24H PRN 9.61 mls/hr PROTOCOL Administration Protocol 9 UNITS/KG/HR Multivitamins/Vitamin C 10 ml/ 1,011 mls @ 42 mls/hr 03/20/18 18:00 Chromium/Copper/Manganese/ IV 03/21/18 17:59 Zinc 1 ml/ Amino Acids/ .Q24H [facility] Electrolytes/Dextrose Fat Emulsion Intravenous 500 mls @ 42 mls/hr 03/20/18 18:00 Intralipid 20% IV 03/21/18 05:54 ONCE ONE Insulin Aspart 0 unit 03/15/18 12:00 03/20/18 12:54 Novolog SC 2 units Q6 [facility] Administration Protocol Levothyroxine Sodium 75 mcg 03/15/18 17:00 03/20/18 09:44 Synthroid IVP 75 mcg DAILY [facility] Administration Pantoprazole Sodium 40 mg 03/07/18 10:00 03/20/18 09:43 Protonix Inj IVP 40 mg Q12H [facility] Administration Vitamin A 0.5 ea 03/10/18 20:33 03/15/18 21:39 Vitamin A & D Oint Ud Foilpak TOP 0.5 ea Q4 PRN Administration Lip dryness - Patient Studies Lab Studies: Microbiology Studies 03/17/18 00:52 Blood Culture - Preliminary Blood NO GROWTH AFTER 3 DAYS 03/17/18 00:52 Blood Culture - Preliminary Blood NO GROWTH AFTER 3 DAYS 03/17/18 00:51 Urine Culture - Final Urine Yeast Species Lab Studies 03/20/18 03/20/18 03/20/18 Range/Units 11:15 10:39 06:21 WBC (4.8-10.8) K/uL RBC (3.80-5.20) Mil/uL Hgb (11.0-16.0) g/dL Hct (34.0-47.0) % MCV (81.0-99.0) fL MCH (27.0-31.0) pg MCHC (33.0-37.0) g/dL RDW (11.5-14.5) % Plt Count (130-400) K/uL MPV (7.2-11.7) fL Neut % (Auto) (50.0-75.0) % Lymph % (Auto) (20.0-40.0) % [place] % (Auto) (0.0-10.0) % Eos % (Auto) (0.0-4.0) % Baso % (Auto) (0.0-2.0) % Neut # (Auto) (1.8-7.0) K/uL Lymph # (Auto) (1.0-4.3) K/uL [place] # (Auto) (0.0-0.8) K/uL Eos # (Auto) (0.0-0.7) K/uL Baso # (Auto) (0.0-0.2) K/uL APTT 63 H D (21-34) SECONDS Puncture Site pCO2 (35-45) mm/Hg pO2 (80-100) mm/Hg HCO3 (21-28) mmol/L ABG pH (7.35-7.45) ABG Total CO2 (22-28) mmol/L ABG O2 Saturation (95-98) % ABG Base Excess (-2.0-3.0) mmol/L Michele Test ABG Potassium (3.6-5.2) mmol/L A-a O2 Difference mm/Hg Respiratory Index Sodium (132-148) mmol/l Chloride (98-107) mmol/L Glucose (65-105) mg/dl Lactate (0.7-2.1) mmol/L Vent Mode Mechanical Rate FiO2 % Tidal Volume PEEP Crit Value Called To Crit Value Called By Crit Value Read Back Blood Gas Notified Time Potassium (3.6-5.2) mmol/L Carbon Dioxide (22-30) mmol/L Anion Gap (10-20) BUN (7-17) mg/dL Creatinine (0.7-1.2) mg/dL Est GFR ( Amer) Est GFR (Non-Af Amer) POC Glucose (mg/dL) 184 H (65-110) mg/dL Random Glucose (65-105) mg/dL Calcium (8.6-10.4) mg/dl Phosphorus (2.5-4.5) mg/dL Magnesium (1.6-2.3) mg/dL Total Bilirubin (0.2-1.3) mg/dL AST (14-36) U/L ALT (9-52) U/L Alkaline Phosphatase (38-126) U/L Total Protein (6.3-8.3) g/dL Albumin (3.5-5.0) g/dL Globulin (2.2-3.9) gm/dL Albumin/Globulin Ratio (1.0-2.1) Arterial Blood Potassium (3.6-5.2) mmol/L Blood Type A POSITIVE Antibody Screen Negative 03/20/18 03/20/18 03/20/18 Range/Units 06:15 06:12 05:09 WBC 29.3 H D (4.8-10.8) K/uL RBC 2.67 L (3.80-5.20) Mil/uL Hgb 8.4 L (11.0-16.0) g/dL Hct 24.8 L (34.0-47.0) % MCV 93.0 (81.0-99.0) fL MCH 31.4 H (27.0-31.0) pg MCHC 33.7 (33.0-37.0) g/dL RDW 16.7 H (11.5-14.5) % Plt Count 290 (130-400) K/uL MPV 11.3 (7.2-11.7) fL Neut % (Auto) 80.9 H (50.0-75.0) % Lymph % (Auto) 15.1 L (20.0-40.0) % [place] % (Auto) 3.4 (0.0-10.0) % Eos % (Auto) 0.1 (0.0-4.0) % Baso % (Auto) 0.5 (0.0-2.0) % Neut # (Auto) 23.7 H (1.8-7.0) K/uL Lymph # (Auto) 4.4 H (1.0-4.3) K/uL [place] # (Auto) 1.0 H (0.0-0.8) K/uL Eos # (Auto) 0.0 (0.0-0.7) K/uL Baso # (Auto) 0.2 (0.0-0.2) K/uL APTT (21-34) SECONDS Puncture Site pCO2 (35-45) mm/Hg pO2 (80-100) mm/Hg HCO3 (21-28) mmol/L ABG pH (7.35-7.45) ABG Total CO2 (22-28) mmol/L ABG O2 Saturation (95-98) % ABG Base Excess (-2.0-3.0) mmol/L Michele Test ABG Potassium (3.6-5.2) mmol/L A-a O2 Difference mm/Hg Respiratory Index Sodium 141 (132-148) mmol/l Chloride 110 H (98-107) mmol/L Glucose (65-105) mg/dl Lactate (0.7-2.1) mmol/L Vent Mode Mechanical Rate FiO2 % Tidal Volume PEEP Crit Value Called To Crit Value Called By Crit Value Read Back Blood Gas Notified Time Potassium 3.5 L (3.6-5.2) mmol/L Carbon Dioxide 21 L (22-30) mmol/L Anion Gap 14 (10-20) BUN 19 H (7-17) mg/dL Creatinine 0.9 (0.7-1.2) mg/dL Est GFR ( Amer) > 60 Est GFR (Non-Af Amer) > 60 POC Glucose (mg/dL) 161 H (65-110) mg/dL Random Glucose 142 H (65-105) mg/dL Calcium 7.5 L (8.6-10.4) mg/dl Phosphorus 3.9 (2.5-4.5) mg/dL Magnesium 1.9 (1.6-2.3) mg/dL Total Bilirubin 4.9 H (0.2-1.3) mg/dL AST 25 (14-36) U/L ALT 18 (9-52) U/L Alkaline Phosphatase 92 (38-126) U/L Total Protein 5.3 L (6.3-8.3) g/dL Albumin 2.0 L (3.5-5.0) g/dL Globulin 3.3 (2.2-3.9) gm/dL Albumin/Globulin Ratio 0.6 L (1.0-2.1) Arterial Blood Potassium (3.6-5.2) mmol/L Blood Type Antibody Screen 03/20/18 03/19/18 03/19/18 Range/Units 04:30 23:57 17:37 WBC (4.8-10.8) K/uL RBC (3.80-5.20) Mil/uL Hgb (11.0-16.0) g/dL Hct (34.0-47.0) % MCV (81.0-99.0) fL MCH (27.0-31.0) pg MCHC (33.0-37.0) g/dL RDW (11.5-14.5) % Plt Count (130-400) K/uL MPV (7.2-11.7) fL Neut % (Auto) (50.0-75.0) % Lymph % (Auto) (20.0-40.0) % [place] % (Auto) (0.0-10.0) % Eos % (Auto) (0.0-4.0) % Baso % (Auto) (0.0-2.0) % Neut # (Auto) (1.8-7.0) K/uL Lymph # (Auto) (1.0-4.3) K/uL [place] # (Auto) (0.0-0.8) K/uL Eos # (Auto) (0.0-0.7) K/uL Baso # (Auto) (0.0-0.2) K/uL APTT (21-34) SECONDS Puncture Site Rr pCO2 28 L (35-45) mm/Hg pO2 75 L (80-100) mm/Hg HCO3 21.0 (21-28) mmol/L ABG pH 7.42 (7.35-7.45) ABG Total CO2 19.1 L (22-28) mmol/L ABG O2 Saturation 96.2 (95-98) % ABG Base Excess -4.9 L (-2.0-3.0) mmol/L Michele Test Pos ABG Potassium 3.8 (3.6-5.2) mmol/L A-a O2 Difference 211.0 mm/Hg Respiratory Index 2.8 Sodium 142.0 (132-148) mmol/l Chloride 109.0 H (98-107) mmol/L Glucose 139 H (65-105) mg/dl Lactate 4.1 H* (0.7-2.1) mmol/L Vent Mode Prvc Mechanical Rate 12 FiO2 45.0 % Tidal Volume 400 PEEP 5 Crit Value Called To Eris isidro/rn Crit Value Called By Kailash meier/rt Crit Value Read Back Y Blood Gas Notified Time 445 Potassium (3.6-5.2) mmol/L Carbon Dioxide (22-30) mmol/L Anion Gap (10-20) BUN (7-17) mg/dL Creatinine (0.7-1.2) mg/dL Est GFR ( Amer) Est GFR (Non-Af Amer) POC Glucose (mg/dL) 140 H 111 H (65-110) mg/dL Random Glucose (65-105) mg/dL Calcium (8.6-10.4) mg/dl Phosphorus (2.5-4.5) mg/dL Magnesium (1.6-2.3) mg/dL Total Bilirubin (0.2-1.3) mg/dL AST (14-36) U/L ALT (9-52) U/L Alkaline Phosphatase (38-126) U/L Total Protein (6.3-8.3) g/dL Albumin (3.5-5.0) g/dL Globulin (2.2-3.9) gm/dL Albumin/Globulin Ratio (1.0-2.1) Arterial Blood Potassium 3.8 (3.6-5.2) mmol/L Blood Type Antibody Screen Laboratory Results - last 24 hr 03/19/18 03/19/18 03/20/18 17:37 23:57 04:30 WBC RBC Hgb Hct MCV MCH MCHC RDW Plt Count MPV Neut % (Auto) Lymph % (Auto) [place] % (Auto) Eos % (Auto) Baso % (Auto) Neut # (Auto) Lymph # (Auto) [place] # (Auto) Eos # (Auto) Baso # (Auto) APTT Puncture Site Rr pCO2 28 L pO2 75 L HCO3 21.0 ABG pH 7.42 ABG Total CO2 19.1 L ABG O2 Saturation 96.2 ABG Base Excess -4.9 L Michele Test Pos ABG Potassium 3.8 A-a O2 Difference 211.0 Respiratory Index 2.8 Sodium 142.0 Chloride 109.0 H Glucose 139 H Lactate 4.1 H* Vent Mode Prvc Mechanical Rate 12 FiO2 45.0 Tidal Volume 400 PEEP 5 Crit Value Called To Eris isidro/rn Crit Value Called By Kailash meier/rt Crit Value Read Back Y Blood Gas Notified Time 445 Potassium Carbon Dioxide Anion Gap BUN Creatinine Est GFR ( Amer) Est GFR (Non-Af Amer) POC Glucose (mg/dL) 111 H 140 H Random Glucose Calcium Phosphorus Magnesium Total Bilirubin AST ALT Alkaline Phosphatase Total Protein Albumin Globulin Albumin/Globulin Ratio Arterial Blood Potassium 3.8 Blood Type Antibody Screen 03/20/18 03/20/18 03/20/18 05:09 06:12 06:15 WBC 29.3 H D RBC 2.67 L Hgb 8.4 L Hct 24.8 L MCV 93.0 MCH 31.4 H MCHC 33.7 RDW 16.7 H Plt Count 290 MPV 11.3 Neut % (Auto) 80.9 H Lymph % (Auto) 15.1 L [place] % (Auto) 3.4 Eos % (Auto) 0.1 Baso % (Auto) 0.5 Neut # (Auto) 23.7 H Lymph # (Auto) 4.4 H [place] # (Auto) 1.0 H Eos # (Auto) 0.0 Baso # (Auto) 0.2 APTT Puncture Site pCO2 pO2 HCO3 ABG pH ABG Total CO2 ABG O2 Saturation ABG Base Excess Michele Test ABG Potassium A-a O2 Difference Respiratory Index Sodium 141 Chloride 110 H Glucose Lactate Vent Mode Mechanical Rate FiO2 Tidal Volume PEEP Crit Value Called To Crit Value Called By Crit Value Read Back Blood Gas Notified Time Potassium 3.5 L Carbon Dioxide 21 L Anion Gap 14 BUN 19 H Creatinine 0.9 Est GFR ( Amer) > 60 Est GFR (Non-Af Amer) > 60 POC Glucose (mg/dL) 161 H Random Glucose 142 H Calcium 7.5 L Phosphorus 3.9 Magnesium 1.9 Total Bilirubin 4.9 H AST 25 ALT 18 Alkaline Phosphatase 92 Total Protein 5.3 L Albumin 2.0 L Globulin 3.3 Albumin/Globulin Ratio 0.6 L Arterial Blood Potassium Blood Type Antibody Screen 03/20/18 03/20/18 03/20/18 06:21 10:39 11:15 WBC RBC Hgb Hct MCV MCH MCHC RDW Plt Count MPV Neut % (Auto) Lymph % (Auto) [place] % (Auto) Eos % (Auto) Baso % (Auto) Neut # (Auto) Lymph # (Auto) [place] # (Auto) Eos # (Auto) Baso # (Auto) APTT 63 H D Puncture Site pCO2 pO2 HCO3 ABG pH ABG Total CO2 ABG O2 Saturation ABG Base Excess Michele Test ABG Potassium A-a O2 Difference Respiratory Index Sodium Chloride Glucose Lactate Vent Mode Mechanical Rate FiO2 Tidal Volume PEEP Crit Value Called To Crit Value Called By Crit Value Read Back Blood Gas Notified Time Potassium Carbon Dioxide Anion Gap BUN Creatinine Est GFR ( Amer) Est GFR (Non-Af Amer) POC Glucose (mg/dL) 184 H Random Glucose Calcium Phosphorus Magnesium Total Bilirubin AST ALT Alkaline Phosphatase Total Protein Albumin Globulin Albumin/Globulin Ratio Arterial Blood Potassium Blood Type A POSITIVE Antibody Screen Negative Fingerstick Blood Sugar Results: 184 Critical Care Progress Note - Nutrition Nutrition: Nutrition Category Date Time Status NPO Diet [DIET] Diets 03/06/18 Breakfast Active Assessment/Plan - Assessment and Plan (Free Text) Assessment: 82 yo female with 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
[2018-03-20] MEDS ORDERED: Fat Emulsion 20% IV 500 ML IV ONE (18:00)
[2018-03-20] MEDS ORDERED: [UNRECOGNIZED DRUG - OTHER] IV SCH (18:00)
[2018-03-20] MEDS ORDERED: TPN IV SCH (18:00)
--- NOTE | 2018-03-20 19:50 | CP.PCM.PN ---
Subjective - Date & Time of Evaluation Date of Evaluation: 03/20/18 Time of Evaluation: 13:00 - Subjective Subjective: clinically same Objective - Vital Signs/Intake and Output Vital Signs (last 24 hours): Temp Pulse Resp BP Pulse Ox 99.5 F 96 H 30 H 136/50 L 100 03/20/18 16:00 03/20/18 18:49 03/20/18 18:49 03/20/18 18:49 03/20/18 18:49 Intake and Output: 03/20/18 03/21/18 18:59 06:59 Intake Total 966.0 Output Total 195 Balance 771.0 - Medications Medications: Current Medications Albumin Human (Albumin Human 25% (12.5 Gm/50 Ml)) 25 gm IV Q6H [facility] Last Admin: 03/20/18 15:57 Dose: 25 gm Dextrose (Dextrose 50% Inj) 0 ml IV STAT PRN; Protocol PRN Reason: Hypoglycemia Protocol Last Admin: 03/11/18 00:13 Dose: 50 ml Dextrose (Glutose 15) 0 gm PO ONCE PRN; Protocol PRN Reason: Hypoglycemia Protocol Furosemide (Lasix) 20 mg IVP DAILY [facility] Last Admin: 03/20/18 17:41 Dose: 20 mg Glucagon (Glucagen Diagnostic Kit) 0 mg IM STAT PRN; Protocol PRN Reason: Hypoglycemia Protocol Hydromorphone HCl (Dilaudid) 0.5 mg IVP Q3 PRN PRN Reason: Pain, severe (8-10) Last Admin: 03/20/18 14:03 Dose: 0.5 mg Meropenem 500 mg/ Sodium (Chloride) 100 mls @ 100 mls/hr IVPB Q8H [facility]; Protocol Last Admin: 03/20/18 17:40 Dose: 100 mls/hr Metronidazole (Flagyl) 500 mg in 100 mls @ 100 mls/hr IVPB Q8H [facility]; Protocol Last Admin: 03/20/18 14:03 Dose: 100 mls/hr Heparin Sodium/Sodium Chloride (Heparin 02462 Units/250ml 1/2 Normal Saline) 25,000 units in 250 mls @ 9.61 mls/hr IV .Q24H PRN; Protocol PRN Reason: PROTOCOL Last Admin: 03/20/18 08:22 Dose: 9 units/kg/hr, 9.61 mls/hr Multivitamins/Vitamin C 10 ml/Chromium/Copper/Manganese/Zinc 1 ml/ Amino Acids/Electrolytes/Dextrose 1,011 mls @ 42 mls/hr IV .Q24H [facility] Stop: 03/21/18 17:59 Last Admin: 03/20/18 17:46 Dose: 42 mls/hr Fat Emulsion Intravenous (Intralipid 20%) 500 mls @ 42 mls/hr IV ONCE ONE Stop: 03/21/18 05:54 Last Admin: 03/20/18 17:45 Dose: 42 mls/hr Insulin Aspart (Novolog) 0 unit SC Q6 [facility]; Protocol Last Admin: 03/20/18 18:42 Dose: 2 units Levothyroxine Sodium (Synthroid) 75 mcg IVP DAILY [facility] Last Admin: 03/20/18 09:44 Dose: 75 mcg Pantoprazole Sodium (Protonix Inj) 40 mg IVP Q12H [facility] Last Admin: 03/20/18 09:43 Dose: 40 mg Vitamin A (Vitamin A & D Oint Ud Foilpak) 0.5 ea TOP Q4 PRN PRN Reason: Lip dryness Last Admin: 03/15/18 21:39 Dose: 0.5 ea - Labs Labs: 03/20/18 06:15 03/20/18 06:12 PT 15.7 SECONDS (9.7-12.2) H 03/11/18 04:15 INR 1.4 03/11/18 04:15 APTT 63 SECONDS (21-34) H D 03/20/18 06:21 - Constitutional Appears: Well - Head Exam Head Exam: ATRAUMATIC, NORMAL INSPECTION, NORMOCEPHALIC - Eye Exam Eye Exam: EOMI, Normal appearance, PERRL Pupil Exam: NORMAL ACCOMODATION, PERRL - ENT Exam ENT Exam: Mucous Membranes Moist, Normal Exam - Neck Exam Neck Exam: Full ROM, Normal Inspection. absent: Lymphadenopathy - Respiratory Exam Respiratory Exam: Decreased Breath Sounds - Cardiovascular Exam Cardiovascular Exam: REGULAR RHYTHM, +S1, +S2 - GI/Abdominal Exam GI & Abdominal Exam: Soft, Diminished Bowel Sounds - Rectal Exam Rectal Exam: Deferred
[2018-03-20] MEDS: Vitamins A & D Oint UD Foilpak TOP PRN (22:33)
[2018-03-21] MEDS: Meropenem 500 MG in Sodium Chloride 0.9% 100 ML IVPB SCH ×3 (00:35→17:19)
[2018-03-21] MEDS: (Novolog) Insulin Aspart, Recombinant 100 u/ml 10 ml vial SC SCH ×4 (00:39→18:19)
[2018-03-21] MEDS: HYDROmorphone 0.5 mg/0.5 ml ISec IVP PRN ×2 (01:10→08:37)
[2018-03-21 04:26] LABS: ABG ALLEN TEST POS; ARTERIAL BLOOD GAS HCO3 23.3 mmol/L (21-28); ARTERIAL BLOOD GAS O2 SAT 99.6 % (95-98); ARTERIAL BLOOD GAS PCO2 29 mm/Hg (35-45); ARTERIAL BLOOD GAS PH 7.46 (7.35-7.45); ARTERIAL BLOOD GAS PO2 131 mm/Hg (80-100); ARTERIAL BLOOD GAS TCO2 21.5 mmol/L (22-28)
[2018-03-21] MEDS: Albumin Human 25% (12.5 gm/50 ml) IV SCH ×4 (04:37→22:32)
[2018-03-21] MEDS: metroNIDAZOLE IV 500 mg/100 ml 500 MG/100 ML BAG IVPB SCH ×3 (06:23→22:32)
[2018-03-21 06:29] LABS: BASO # 0.2 K/uL (0.0-0.2); BASO % 0.7 % (0.0-2.0); EOS # 0.1 K/uL (0.0-0.7); EOS % 0.5 % (0.0-4.0); HEMOGLOBIN 7.9 g/dL (11.0-16.0); LYMPH # 3.5 K/uL (1.0-4.3); LYMPH % 14.8 % (20.0-40.0); MEAN CELL VOLUME 94.7 fL (81.0-99.0); MEAN CORPUSCULAR HEMOGLOBIN 30.3 pg (27.0-31.0); MEAN PLATELET VOLUME 11.6 fL (7.2-11.7); MONO # 0.8 K/uL (0.0-0.8); MONO % 3.4 % (0.0-10.0); NEUT # 18.8 K/uL (1.8-7.0); NEUT % 80.6 % (50.0-75.0); NRBC % 0.1 % (0.0-2.0); RBC 2.6 Mil/uL (3.80-5.20); RED CELL DISTRIBUTION WIDTH 17.6 % (11.5-14.5); WHITE BLOOD COUNT 23.4 K/uL (4.8-10.8)
[2018-03-21 07:02] LABS: ALB/GLOB RATIO 0.8 (1.0-2.1); ALBUMIN 2.6 g/dL (3.5-5.0); ALT/SGPT 26 U/L (9-52); AST/SGOT 35 U/L (14-36); BLOOD UREA NITROGEN 23 mg/dL (7-17); CALCIUM 7.7 mg/dl (8.6-10.4); GFR NON-AFRICAN AMERICAN > 60
--- NOTE | 2018-03-21 08:49 | CP.PCM.PN ---
<Rivas Cooley - Last Filed: 03/21/18 13:02> Objective - Vital Signs/Intake and Output Vital Signs (last 24 hours): Temp Pulse Resp BP Pulse Ox 99.2 F 95 H 33 H 137/54 L 98 03/21/18 08:00 03/21/18 11:02 03/21/18 11:02 03/21/18 11:02 03/21/18 11:02 Intake and Output: 03/21/18 03/21/18 06:59 18:59 Intake Total 1531.2 808.0 Output Total 200 Balance 1331.2 808.0 - Medications Medications: Current Medications Albumin Human (Albumin Human 25% (12.5 Gm/50 Ml)) 25 gm IV Q6H [facility] Last Admin: 03/21/18 10:55 Dose: 25 gm Albuterol/Ipratropium (Duoneb 3 Mg/0.5 Mg (3 Ml) Ud) 3 ml INH RQ6 [facility] Dextrose (Dextrose 50% Inj) 0 ml IV STAT PRN; Protocol PRN Reason: Hypoglycemia Protocol Last Admin: 03/11/18 00:13 Dose: 50 ml Dextrose (Glutose 15) 0 gm PO ONCE PRN; Protocol PRN Reason: Hypoglycemia Protocol Furosemide (Lasix) 40 mg IVP DAILY [facility] Last Admin: 03/21/18 09:23 Dose: 40 mg Glucagon (Glucagen Diagnostic Kit) 0 mg IM STAT PRN; Protocol PRN Reason: Hypoglycemia Protocol Hydromorphone HCl (Dilaudid) 0.5 mg IVP Q3 PRN PRN Reason: Pain, severe (8-10) Last Admin: 03/21/18 08:37 Dose: 0.5 mg Meropenem 500 mg/ Sodium (Chloride) 100 mls @ 100 mls/hr IVPB Q8H [facility]; Protocol Last Admin: 03/21/18 08:13 Dose: 100 mls/hr Metronidazole (Flagyl) 500 mg in 100 mls @ 100 mls/hr IVPB Q8H [facility]; Protocol Last Admin: 03/21/18 06:23 Dose: 100 mls/hr Heparin Sodium/Sodium Chloride (Heparin 55073 Units/250ml 1/2 Normal Saline) 25,000 units in 250 mls @ 9.61 mls/hr IV .Q24H PRN; Protocol PRN Reason: PROTOCOL Last Admin: 03/21/18 11:11 Dose: 9 units/kg/hr, 9.61 mls/hr Multivitamins/Vitamin C 10 ml/Chromium/Copper/Manganese/Zinc 1 ml/ Amino Acids/Electrolytes/Dextrose 1,011 mls @ 42 mls/hr IV .Q24H [facility] Stop: 03/21/18 17:59 Last Admin: 03/20/18 17:46 Dose: 42 mls/hr Dexmedetomidine HCl 200 mcg/ (Sodium Chloride) 50 mls @ 5.06 mls/hr IV TITR PRN; Protocol PRN Reason: Agitation Multivitamins/Vitamin C 10 ml/Chromium/Copper/Manganese/Zinc 1 ml/ Insulin Human Regular 10 unit/ Amino Acids/Electrolytes/Dextrose 1,011.1 mls @ 42 mls/hr IV .Q24H [facility] Stop: 03/22/18 17:59 Insulin Aspart (Novolog) 0 unit SC Q6 [facility]; Protocol Last Admin: 03/21/18 12:17 Dose: 4 units Levothyroxine Sodium (Levothyroxine) 75 mcg IVP DAILY [facility] Last Admin: 03/21/18 09:24 Dose: 75 mcg Pantoprazole Sodium (Protonix Inj) 40 mg IVP Q12H [facility] Last Admin: 03/21/18 09:15 Dose: 40 mg Vitamin A (Vitamin A & D Oint Ud Foilpak) 0.5 ea TOP Q4 PRN PRN Reason: Lip dryness Last Admin: 03/20/18 22:33 Dose: 0.5 ea - Labs Labs: 03/21/18 06:23 03/21/18 06:20 PT 15.7 SECONDS (9.7-12.2) H 03/11/18 04:15 INR 1.4 03/11/18 04:15 APTT 65 SECONDS (21-34) H 03/21/18 06:23 <Mila Thompson - Last Filed: 03/21/18 17:25> Subjective - Date & Time of Evaluation Date of Evaluation: 03/21/18 Time of Evaluation: 07:00 - Subjective Subjective: Surgery progress note for Dr. Freitas Pt seen and examined at bedside this AM. No adverse events overnight. Patient is hemodynamically stable, more alert, but her urine output is decreasing. Patient still expresses discomfort during exam Objective - Vital Signs/Intake and Output Vital Signs (last 24 hours): Temp Pulse Resp BP Pulse Ox 99.1 F 85 29 H 143/51 L 100 03/21/18 04:00 03/21/18 07:02 03/21/18 07:02 03/21/18 07:02 03/21/18 07:02 Intake and Output: 03/21/18 03/21/18 06:59 18:59 Intake Total 1531.2 Output Total 200 Balance 1331.2 - Medications Medications: Current Medications Albumin Human (Albumin Human 25% (12.5 Gm/50 Ml)) 25 gm IV Q6H [facility] Last Admin: 03/21/18 04:37 Dose: 12.5 gm Dextrose (Dextrose 50% Inj) 0 ml IV STAT PRN; Protocol PRN Reason: Hypoglycemia Protocol Last Admin: 03/11/18 00:13 Dose: 50 ml Dextrose (Glutose 15) 0 gm PO ONCE PRN; Protocol PRN Reason: Hypoglycemia Protocol Furosemide (Lasix) 20 mg IVP DAILY [facility] Last Admin: 03/20/18 17:41 Dose: 20 mg Glucagon (Glucagen Diagnostic Kit) 0 mg IM STAT PRN; Protocol PRN Reason: Hypoglycemia Protocol Hydromorphone HCl (Dilaudid) 0.5 mg IVP Q3 PRN PRN Reason: Pain, severe (8-10) Last Admin: 03/21/18 08:37 Dose: 0.5 mg Meropenem 500 mg/ Sodium (Chloride) 100 mls @ 100 mls/hr IVPB Q8H [facility]; Protocol Last Admin: 03/21/18 08:13 Dose: 100 mls/hr Metronidazole (Flagyl) 500 mg in 100 mls @ 100 mls/hr IVPB Q8H [facility]; Protocol Last Admin: 03/21/18 06:23 Dose: 100 mls/hr Heparin Sodium/Sodium Chloride (Heparin 48558 Units/250ml 1/2 Normal Saline) 25,000 units in 250 mls @ 9.61 mls/hr IV .Q24H PRN; Protocol PRN Reason: PROTOCOL Last Admin: 03/20/18 08:22 Dose: 9 units/kg/hr, 9.61 mls/hr Multivitamins/Vitamin C 10 ml/Chromium/Copper/Manganese/Zinc 1 ml/ Amino Acids/Electrolytes/Dextrose 1,011 mls @ 42 mls/hr IV .Q24H [facility] Stop: 03/21/18 17:59 Last Admin: 03/20/18 17:46 Dose: 42 mls/hr Insulin Aspart (Novolog) 0 unit SC Q6 [facility]; Protocol Last Admin: 03/21/18 06:23 Dose: 4 units Levothyroxine Sodium (Synthroid) 75 mcg IVP DAILY [facility] Last Admin: 03/20/18 09:44 Dose: 75 mcg Pantoprazole Sodium (Protonix Inj) 40 mg IVP Q12H [facility] Last Admin: 03/20/18 21:25 Dose: 40 mg Vitamin A (Vitamin A & D Oint Ud Foilpak) 0.5 ea TOP Q4 PRN PRN Reason: Lip dryness Last Admin: 03/20/18 22:33 Dose: 0.5 ea - Labs Labs: 03/21/18 06:23 03/21/18 06:20 PT 15.7 SECONDS (9.7-12.2) H 03/11/18 04:15 INR 1.4 03/11/18 04:15 APTT 65 SECONDS (21-34) H 03/21/18 06:23 - Constitutional Appears: No Acute Distress - Head Exam Head Exam: ATRAUMATIC, NORMOCEPHALIC - Eye Exam Eye Exam: Normal appearance. absent: Conjunctival injection, Scleral icterus - ENT Exam ENT Exam: Mucous Membranes Moist, Normal Oropharynx Additional comments: ETT in place - Respiratory Exam Respiratory Exam: absent: Accessory Muscle Use, Respiratory Distress Additional comments: on mechanical ventilation - GI/Abdominal Exam GI & Abdominal Exam: Distended, Tenderness (diffuse tenderness worse in the RLQ). absent: Soft Additional comments: midline incision loosely approximated with colostomy bag in place, draining moderate amount of dark thick liquid concerning for succus Jejunostomy tube in place with scant drainage - Extremities Exam Extremities Exam: Pedal Edema. absent: Calf Tenderness - Neurological Exam Neurological Exam: Altered, Awake - Psychiatric Exam Psychiatric exam: Anxious - Skin Skin Exam: Dry, Normal Color, Warm Additional comments: diffuse anasarca Assessment and Plan - Assessment and Plan (Free Text) Assessment: 82F with mesenteric ischemia POD#15 and 10 s/p exploratory laparotomy with small bowel resection, left in discontinuity Plan: Continue heparin drip Continue IV antibiotics Continue to monitor outputs closely Continue PRN pain medication Continue NGT to low continuous suction Continue to trend CBC and chemistry--WBC and H/H trending down today. May consider a transfusion is patient becomes hemodynamically unstable Plan for takeback for exploratory laparotomy in the OR tomorrow AM. Discussed with Dr. Fortino Thompson, PGY2
[2018-03-21] MEDS ORDERED: Dexmedetomidine Hydrochloride 200 MCG in Sodium Chloride 0.9% 48 ML IV PRN (09:04)
[2018-03-21] MEDS: Levothyroxine 200 mcg (0.2 mg) Inj IVP SCH (09:24)
[2018-03-21] MEDS: Magnesium Sulfate 1 gm in D5W 1 GM/100 ML BAG IVPB SCH ×2 (09:25→09:55)
--- NOTE | 2018-03-21 09:53 | RAD ---
Date of service: 03/21/2018 HISTORY: on vent COMPARISON: No prior. FINDINGS: In the sided 2 right IJ central line with tip in the SVC unchanged. NGT present with tip located approximately 4.5 cm above carson. NGT is present the tip of which not been included on this film though distal aspect does lie well below EG junction. LUNGS: Pulmonary venous congestive changes with bilateral lower lobe alveolar-type infiltrates and bilateral effusions left larger than right PLEURA: As above. No pneumothorax apparent. CARDIOVASCULAR: Mild aortic atherosclerotic calcification present. Heart is enlarged. . OSSEOUS STRUCTURES: No significant abnormalities. VISUALIZED UPPER ABDOMEN: Normal. OTHER FINDINGS: None. IMPRESSION: Support lines and tubes as above. Pulmonary venous congestive changes with bilateral lower lobe alveolar-type infiltrates and bilateral effusions left larger than right
--- NOTE | 2018-03-21 10:15 | CP.CCUPN ---
<Rivas Cooley - Last Filed: 03/21/18 13:02> CCU Subjective - Physician Review Subjective (Free Text): 03/17/18 11:08 Patient was seen and examined this morning. Patient remains intubated. Patient is not agitated. She is awake and responsive. She is not on vasopressors and hemodynamically stable. Her urine output is 2600cc overnight. 03/18/18 11:37 Patient was seen and examined this morning. Patient is on CPAP and hemodynamically stable. 03/19/18 09:31 Patient examined at bedside. Patient is intubated. Patient on Heparin drip and TPN. 03/21/18 11:50 Patient examined at bedside. No acute events overnight. Patient is intubated on CPAP. Patient continues to be on Heparin drip and TPN. Critical Care Time Spent (in minutes): 35 CCU Objective - Vital Signs / Intake & Output Vital Signs (Last 4 hours): Vital Signs Pulse Resp BP Pulse Ox 03/21/18 09:23 145/56 L 03/21/18 07:02 85 29 H 143/51 L 100 Intake and Output (Last 8hrs): Intake & Output 03/20/18 03/21/18 03/21/18 22:59 06:59 14:59 Intake Total 829.2 1056.8 254.8 Output Total 130 130 Balance 699.2 926.8 254.8 Weight 223 lb 1.725 oz Intake: Intake, IV Amount 829.2 1056.8 254.8 Left Wrist 67.2 76.8 28.8 Medial Port 168 294 Right Distal Port 294 336 126 Internal Jugular Right Medial Port 300 350 100 Internal Jugular Output: Drainage 20 50 LEFT JEJUNOSTOMY 0 0 Right Nare 20 abdominal wound drain 0 50 Urine 110 80 Urethral (Tran) 110 80 Other: # Bowel Movements 1 - Physical Exam Head: Positive for: Atraumatic, Normocephalic Pupils: Positive for: PERRL Extroacular Muscles: Positive for: EOMI Mouth: Positive for: Moist Mucous Membranes Nose (External): Positive for: Other (NGT) Respiratory/Chest: Positive for: Clear to Auscultation, Other (Patient is intubated). Negative for: Respiratory Distress Cardiovascular: Positive for: Normal S1, S2, Tachycardic. Negative for: Murmurs Abdomen: Positive for: Tenderness (oozing from abdominal surgical site.), Distention, Other (Surgical site with yellow fluids) Upper Extremity: Positive for: Edema Lower Extremity: Positive for: Edema, Other (R TLC) Neurological: Positive for: Other (sedated) Skin: Positive for: Warm, Normal Color Psychiatric: Positive for: Alert - Medications Active Medications: Active Medications Generic Name Dose Route Start Last Admin Trade Name Freq PRN Reason Stop Dose Admin Albumin Human 25 gm 03/20/18 10:00 03/21/18 04:37 Albumin Human 25% (12.5 Gm/50 Ml) IV 12.5 gm Q6H ARPIT Administration Albuterol/Ipratropium 3 ml 03/21/18 14:00 Duoneb 3 Mg/0.5 Mg (3 Ml) Ud INH RQ6 ARPIT Dextrose 0 ml 03/06/18 15:02 03/11/18 00:13 Dextrose 50% Inj IV 50 ml STAT PRN Administration Hypoglycemia Protocol Protocol Dextrose 0 gm 03/06/18 15:02 Glutose 15 PO ONCE PRN Hypoglycemia Protocol Protocol Furosemide 40 mg 03/21/18 08:52 03/21/18 09:23 Lasix IVP 40 mg DAILY ARPIT Administration Glucagon 0 mg 03/06/18 15:02 Glucagen Diagnostic Kit IM STAT PRN Hypoglycemia Protocol Protocol Hydromorphone HCl 0.5 mg 03/19/18 11:26 03/21/18 08:37 Dilaudid IVP 0.5 mg Q3 PRN Administration Pain, severe (8-10) Meropenem 500 mg/ Sodium 100 mls @ 100 mls/hr 03/12/18 17:00 03/21/18 08:13 Chloride IVPB 100 mls/hr Q8H ARPIT Administration Protocol Metronidazole 500 mg in 100 mls @ 100 mls/hr 03/13/18 15:00 03/21/18 06:23 Flagyl IVPB 100 mls/hr Q8H ARPIT Administration Protocol Heparin Sodium/Sodium Chloride 25,000 units in 250 mls @ 9.61 mls/hr 03/20/18 06:38 03/20/18 08:22 Heparin 15928 Units/250ml 1/2 Normal Saline IV 9 units/kg/hr .Q24H PRN 9.61 mls/hr PROTOCOL Administration Protocol 9 UNITS/KG/HR Multivitamins/Vitamin C 10 ml/ 1,011 mls @ 42 mls/hr 03/20/18 18:00 03/20/18 17:46 Chromium/Copper/Manganese/ IV 03/21/18 17:59 42 mls/hr Zinc 1 ml/ Amino Acids/ .Q24H ARPIT Administration Electrolytes/Dextrose Potassium Chloride 20 meq in 100 mls @ 50 mls/hr 03/21/18 09:00 Potassium Chloride 20 Meq/100 Ml IVPB 03/21/18 11:59 Q1H ARPIT Dexmedetomidine HCl 200 mcg/ 50 mls @ 5.06 mls/hr 03/21/18 09:04 Sodium Chloride IV TITR PRN Agitation Protocol 0.2 MCG/KG/HR Insulin Aspart 0 unit 03/21/18 06:00 03/21/18 06:23 Novolog SC 4 units Q6 ARPIT Administration Protocol Levothyroxine Sodium 75 mcg 03/21/18 10:00 03/21/18 09:24 Levothyroxine IVP 75 mcg DAILY ARPIT Administration Pantoprazole Sodium 40 mg 03/07/18 10:00 03/21/18 09:15 Protonix Inj IVP 40 mg Q12H ARPIT Administration Vitamin A 0.5 ea 03/10/18 20:33 03/20/18 22:33 Vitamin A & D Oint Ud Foilpak TOP 0.5 ea Q4 PRN Administration Lip dryness - Patient Studies Lab Studies: Microbiology Studies 03/17/18 00:52 Blood Culture - Preliminary Blood NO GROWTH AFTER 4 DAYS 03/17/18 00:52 Blood Culture - Preliminary Blood NO GROWTH AFTER 4 DAYS Lab Studies 03/21/18 03/21/18 03/21/18 Range/Units 06:23 06:23 06:20 WBC 23.4 H (4.8-10.8) K/uL RBC 2.60 L (3.80-5.20) Mil/uL Hgb 7.9 L (11.0-16.0) g/dL Hct 24.7 L (34.0-47.0) % MCV 94.7 (81.0-99.0) fL MCH 30.3 (27.0-31.0) pg MCHC 32.0 L (33.0-37.0) g/dL RDW 17.6 H (11.5-14.5) % Plt Count 292 (130-400) K/uL MPV 11.6 (7.2-11.7) fL Neut % (Auto) 80.6 H (50.0-75.0) % Lymph % (Auto) 14.8 L (20.0-40.0) % Rhea % (Auto) 3.4 (0.0-10.0) % Eos % (Auto) 0.5 (0.0-4.0) % Baso % (Auto) 0.7 (0.0-2.0) % Neut # (Auto) 18.8 H (1.8-7.0) K/uL Lymph # (Auto) 3.5 (1.0-4.3) K/uL Rhea # (Auto) 0.8 (0.0-0.8) K/uL Eos # (Auto) 0.1 (0.0-0.7) K/uL Baso # (Auto) 0.2 (0.0-0.2) K/uL APTT 65 H (21-34) SECONDS Puncture Site pCO2 (35-45) mm/Hg pO2 (80-100) mm/Hg HCO3 (21-28) mmol/L ABG pH (7.35-7.45) ABG Total CO2 (22-28) mmol/L ABG O2 Saturation (95-98) % ABG Base Excess (-2.0-3.0) mmol/L Michele Test ABG Potassium (3.6-5.2) mmol/L A-a O2 Difference mm/Hg Respiratory Index Sodium 141 (132-148) mmol/l Chloride 108 H (98-107) mmol/L Glucose (65-105) mg/dl Lactate (0.7-2.1) mmol/L Vent Mode Mechanical Rate FiO2 % Tidal Volume PEEP Potassium 3.4 L (3.6-5.2) mmol/L Carbon Dioxide 21 L (22-30) mmol/L Anion Gap 16 (10-20) BUN 23 H (7-17) mg/dL Creatinine 0.9 (0.7-1.2) mg/dL Est GFR ( Amer) > 60 Est GFR (Non-Af Amer) > 60 POC Glucose (mg/dL) (65-110) mg/dL Random Glucose 218 H (65-105) mg/dL Calcium 7.7 L (8.6-10.4) mg/dl Phosphorus 4.1 (2.5-4.5) mg/dL Magnesium 1.8 (1.6-2.3) mg/dL Total Bilirubin 4.7 H (0.2-1.3) mg/dL AST 35 (14-36) U/L ALT 26 (9-52) U/L Alkaline Phosphatase 78 (38-126) U/L Total Protein 5.8 L (6.3-8.3) g/dL Albumin 2.6 L D (3.5-5.0) g/dL Globulin 3.2 (2.2-3.9) gm/dL Albumin/Globulin Ratio 0.8 L (1.0-2.1) Arterial Blood Potassium (3.6-5.2) mmol/L Blood Type Antibody Screen 03/21/18 03/21/18 03/20/18 Range/Units 05:25 04:20 23:34 WBC (4.8-10.8) K/uL RBC (3.80-5.20) Mil/uL Hgb (11.0-16.0) g/dL Hct (34.0-47.0) % MCV (81.0-99.0) fL MCH (27.0-31.0) pg MCHC (33.0-37.0) g/dL RDW (11.5-14.5) % Plt Count (130-400) K/uL MPV (7.2-11.7) fL Neut % (Auto) (50.0-75.0) % Lymph % (Auto) (20.0-40.0) % Rhea % (Auto) (0.0-10.0) % Eos % (Auto) (0.0-4.0) % Baso % (Auto) (0.0-2.0) % Neut # (Auto) (1.8-7.0) K/uL Lymph # (Auto) (1.0-4.3) K/uL Rhea # (Auto) (0.0-0.8) K/uL Eos # (Auto) (0.0-0.7) K/uL Baso # (Auto) (0.0-0.2) K/uL APTT (21-34) SECONDS Puncture Site Rr pCO2 29 L (35-45) mm/Hg pO2 131 H (80-100) mm/Hg HCO3 23.3 (21-28) mmol/L ABG pH 7.46 H (7.35-7.45) ABG Total CO2 21.5 L (22-28) mmol/L ABG O2 Saturation 99.6 H (95-98) % ABG Base Excess -2.1 L (-2.0-3.0) mmol/L Michele Test Pos ABG Potassium 3.3 L (3.6-5.2) mmol/L A-a O2 Difference 154.0 mm/Hg Respiratory Index 1.2 Sodium 141.0 (132-148) mmol/l Chloride 114.0 H (98-107) mmol/L Glucose 232 H (65-105) mg/dl Lactate 2.3 H (0.7-2.1) mmol/L Vent Mode Prvc Mechanical Rate 12 FiO2 45.0 % Tidal Volume 400 PEEP 5 Potassium (3.6-5.2) mmol/L Carbon Dioxide (22-30) mmol/L Anion Gap (10-20) BUN (7-17) mg/dL Creatinine (0.7-1.2) mg/dL Est GFR ( Amer) Est GFR (Non-Af Amer) POC Glucose (mg/dL) 238 H 227 H (65-110) mg/dL Random Glucose (65-105) mg/dL Calcium (8.6-10.4) mg/dl Phosphorus (2.5-4.5) mg/dL Magnesium (1.6-2.3) mg/dL Total Bilirubin (0.2-1.3) mg/dL AST (14-36) U/L ALT (9-52) U/L Alkaline Phosphatase (38-126) U/L Total Protein (6.3-8.3) g/dL Albumin (3.5-5.0) g/dL Globulin (2.2-3.9) gm/dL Albumin/Globulin Ratio (1.0-2.1) Arterial Blood Potassium 3.3 L (3.6-5.2) mmol/L Blood Type Antibody Screen 03/20/18 03/20/18 03/20/18 Range/Units 17:40 11:15 10:39 WBC (4.8-10.8) K/uL RBC (3.80-5.20) Mil/uL Hgb (11.0-16.0) g/dL Hct (34.0-47.0) % MCV (81.0-99.0) fL MCH (27.0-31.0) pg MCHC (33.0-37.0) g/dL RDW (11.5-14.5) % Plt Count (130-400) K/uL MPV (7.2-11.7) fL Neut % (Auto) (50.0-75.0) % Lymph % (Auto) (20.0-40.0) % Rhea % (Auto) (0.0-10.0) % Eos % (Auto) (0.0-4.0) % Baso % (Auto) (0.0-2.0) % Neut # (Auto) (1.8-7.0) K/uL Lymph # (Auto) (1.0-4.3) K/uL Rhea # (Auto) (0.0-0.8) K/uL Eos # (Auto) (0.0-0.7) K/uL Baso # (Auto) (0.0-0.2) K/uL APTT (21-34) SECONDS Puncture Site pCO2 (35-45) mm/Hg pO2 (80-100) mm/Hg HCO3 (21-28) mmol/L ABG pH (7.35-7.45) ABG Total CO2 (22-28) mmol/L ABG O2 Saturation (95-98) % ABG Base Excess (-2.0-3.0) mmol/L Michele Test ABG Potassium (3.6-5.2) mmol/L A-a O2 Difference mm/Hg Respiratory Index Sodium (132-148) mmol/l Chloride (98-107) mmol/L Glucose (65-105) mg/dl Lactate (0.7-2.1) mmol/L Vent Mode Mechanical Rate FiO2 % Tidal Volume PEEP Potassium (3.6-5.2) mmol/L Carbon Dioxide (22-30) mmol/L Anion Gap (10-20) BUN (7-17) mg/dL Creatinine (0.7-1.2) mg/dL Est GFR ( Amer) Est GFR (Non-Af Amer) POC Glucose (mg/dL) 194 H 184 H (65-110) mg/dL Random Glucose (65-105) mg/dL Calcium (8.6-10.4) mg/dl Phosphorus (2.5-4.5) mg/dL Magnesium (1.6-2.3) mg/dL Total Bilirubin (0.2-1.3) mg/dL AST (14-36) U/L ALT (9-52) U/L Alkaline Phosphatase (38-126) U/L Total Protein (6.3-8.3) g/dL Albumin (3.5-5.0) g/dL Globulin (2.2-3.9) gm/dL Albumin/Globulin Ratio (1.0-2.1) Arterial Blood Potassium (3.6-5.2) mmol/L Blood Type A POSITIVE Antibody Screen Negative 03/20/18 Range/Units 05:09 WBC (4.8-10.8) K/uL RBC (3.80-5.20) Mil/uL Hgb (11.0-16.0) g/dL Hct (34.0-47.0) % MCV (81.0-99.0) fL MCH (27.0-31.0) pg MCHC (33.0-37.0) g/dL RDW (11.5-14.5) % Plt Count (130-400) K/uL MPV (7.2-11.7) fL Neut % (Auto) (50.0-75.0) % Lymph % (Auto) (20.0-40.0) % Rhea % (Auto) (0.0-10.0) % Eos % (Auto) (0.0-4.0) % Baso % (Auto) (0.0-2.0) % Neut # (Auto) (1.8-7.0) K/uL Lymph # (Auto) (1.0-4.3) K/uL Rhea # (Auto) (0.0-0.8) K/uL Eos # (Auto) (0.0-0.7) K/uL Baso # (Auto) (0.0-0.2) K/uL APTT (21-34) SECONDS Puncture Site pCO2 (35-45) mm/Hg pO2 (80-100) mm/Hg HCO3 (21-28) mmol/L ABG pH (7.35-7.45) ABG Total CO2 (22-28) mmol/L ABG O2 Saturation (95-98) % ABG Base Excess (-2.0-3.0) mmol/L Michele Test ABG Potassium (3.6-5.2) mmol/L A-a O2 Difference mm/Hg Respiratory Index Sodium (132-148) mmol/l Chloride (98-107) mmol/L Glucose (65-105) mg/dl Lactate (0.7-2.1) mmol/L Vent Mode Mechanical Rate FiO2 % Tidal Volume PEEP Potassium (3.6-5.2) mmol/L Carbon Dioxide (22-30) mmol/L Anion Gap (10-20) BUN (7-17) mg/dL Creatinine (0.7-1.2) mg/dL Est GFR ( Amer) Est GFR (Non-Af Amer) POC Glucose (mg/dL) 161 H (65-110) mg/dL Random Glucose (65-105) mg/dL Calcium (8.6-10.4) mg/dl Phosphorus (2.5-4.5) mg/dL Magnesium (1.6-2.3) mg/dL Total Bilirubin (0.2-1.3) mg/dL AST (14-36) U/L ALT (9-52) U/L Alkaline Phosphatase (38-126) U/L Total Protein (6.3-8.3) g/dL Albumin (3.5-5.0) g/dL Globulin (2.2-3.9) gm/dL Albumin/Globulin Ratio (1.0-2.1) Arterial Blood Potassium (3.6-5.2) mmol/L Blood Type Antibody Screen Laboratory Results - last 24 hr 03/20/18 03/20/18 03/20/18 05:09 10:39 11:15 WBC RBC Hgb Hct MCV MCH MCHC RDW Plt Count MPV Neut % (Auto) Lymph % (Auto) Rhea % (Auto) Eos % (Auto) Baso % (Auto) Neut # (Auto) Lymph # (Auto) Rhea # (Auto) Eos # (Auto) Baso # (Auto) APTT Puncture Site pCO2 pO2 HCO3 ABG pH ABG Total CO2 ABG O2 Saturation ABG Base Excess Micheel Test ABG Potassium A-a O2 Difference Respiratory Index Sodium Chloride Glucose Lactate Vent Mode Mechanical Rate FiO2 Tidal Volume PEEP Potassium Carbon Dioxide Anion Gap BUN Creatinine Est GFR ( Amer) Est GFR (Non-Af Amer) POC Glucose (mg/dL) 161 H 184 H Random Glucose Calcium Phosphorus Magnesium Total Bilirubin AST ALT Alkaline Phosphatase Total Protein Albumin Globulin Albumin/Globulin Ratio Arterial Blood Potassium Blood Type A POSITIVE Antibody Screen Negative 03/20/18 03/20/18 03/21/18 17:40 23:34 04:20 WBC RBC Hgb Hct MCV MCH MCHC RDW Plt Count MPV Neut % (Auto) Lymph % (Auto) Rhea % (Auto) Eos % (Auto) Baso % (Auto) Neut # (Auto) Lymph # (Auto) Rhea # (Auto) Eos # (Auto) Baso # (Auto) APTT Puncture Site Rr pCO2 29 L pO2 131 H HCO3 23.3 ABG pH 7.46 H ABG Total CO2 21.5 L ABG O2 Saturation 99.6 H ABG Base Excess -2.1 L Michele Test Pos ABG Potassium 3.3 L A-a O2 Difference 154.0 Respiratory Index 1.2 Sodium 141.0 Chloride 114.0 H Glucose 232 H Lactate 2.3 H Vent Mode Prvc Mechanical Rate 12 FiO2 45.0 Tidal Volume 400 PEEP 5 Potassium Carbon Dioxide Anion Gap BUN Creatinine Est GFR ( Amer) Est GFR (Non-Af Amer) POC Glucose (mg/dL) 194 H 227 H Random Glucose Calcium Phosphorus Magnesium Total Bilirubin AST ALT Alkaline Phosphatase Total Protein Albumin Globulin Albumin/Globulin Ratio Arterial Blood Potassium 3.3 L Blood Type Antibody Screen 03/21/18 03/21/18 03/21/18 05:25 06:20 06:23 WBC 23.4 H RBC 2.60 L Hgb 7.9 L Hct 24.7 L MCV 94.7 MCH 30.3 MCHC 32.0 L RDW 17.6 H Plt Count 292 MPV 11.6 Neut % (Auto) 80.6 H Lymph % (Auto) 14.8 L Rhea % (Auto) 3.4 Eos % (Auto) 0.5 Baso % (Auto) 0.7 Neut # (Auto) 18.8 H Lymph # (Auto) 3.5 Rhea # (Auto) 0.8 Eos # (Auto) 0.1 Baso # (Auto) 0.2 APTT Puncture Site pCO2 pO2 HCO3 ABG pH ABG Total CO2 ABG O2 Saturation ABG Base Excess Michele Test ABG Potassium A-a O2 Difference Respiratory Index Sodium 141 Chloride 108 H Glucose Lactate Vent Mode Mechanical Rate FiO2 Tidal Volume PEEP Potassium 3.4 L Carbon Dioxide 21 L Anion Gap 16 BUN 23 H Creatinine 0.9 Est GFR ( Amer) > 60 Est GFR (Non-Af Amer) > 60 POC Glucose (mg/dL) 238 H Random Glucose 218 H Calcium 7.7 L Phosphorus 4.1 Magnesium 1.8 Total Bilirubin 4.7 H AST 35 ALT 26 Alkaline Phosphatase 78 Total Protein 5.8 L Albumin 2.6 L D Globulin 3.2 Albumin/Globulin Ratio 0.8 L Arterial Blood Potassium Blood Type Antibody Screen 03/21/18 06:23 WBC RBC Hgb Hct MCV MCH MCHC RDW Plt Count MPV Neut % (Auto) Lymph % (Auto) Rhea % (Auto) Eos % (Auto) Baso % (Auto) Neut # (Auto) Lymph # (Auto) Rhea # (Auto) Eos # (Auto) Baso # (Auto) APTT 65 H Puncture Site pCO2 pO2 HCO3 ABG pH ABG Total CO2 ABG O2 Saturation ABG Base Excess Michele Test ABG Potassium A-a O2 Difference Respiratory Index Sodium Chloride Glucose Lactate Vent Mode Mechanical Rate FiO2 Tidal Volume PEEP Potassium Carbon Dioxide Anion Gap BUN Creatinine Est GFR ( Amer) Est GFR (Non-Af Amer) POC Glucose (mg/dL) Random Glucose Calcium Phosphorus Magnesium Total Bilirubin AST ALT Alkaline Phosphatase Total Protein Albumin Globulin Albumin/Globulin Ratio Arterial Blood Potassium Blood Type Antibody Screen Fingerstick Blood Sugar Results: 238 Critical Care Progress Note - Nutrition Nutrition: Nutrition Category Date Time Status NPO Diet [DIET] Diets 03/06/18 Breakfast Active Assessment/Plan - Assessment and Plan (Free Text) Assessment: Patient is an 82 yo female with a 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 She has been in a assisted since this surgery. She presented to ED with nausea, vomiting, abdominal pain, and lethargy. CT A/P demonstrated significant ischemic bowel. Subsequent CT demonstrated several GI infarcts, including SMA, hepatic, and splenic. She has had 2 ex-laps with lysis of adhesions (03/06) and partial small bowel resection (03/11). Patient continues to be intubated. Plan: Neuro: - Precedex 200mg 0.2mL/kg/hr - Monitor neurological status CV: Sinus tachycardia - Monitor vitals- sinus tachycardia (90s-100s) - Off pressors- hemodynamically stable - Right femoral TLC Pulm: Fluid overload - Intubated on CPAP - ABG: pH 7.46, pCO2 29, pO2 131 - CXR (03/21): mod-severe venous congestion, dense confluent airspace opacification in right mid to lower lungs, pleural effusion left greater than the right. Cardiomegaly. GI: Ischemic bowel - NPO - NGT to suction - TPN with 10 units of insulin - Dilaudid 0.25 mg IV Q4H PRN - CT angiogram (03/17): Atherosclerotic changes at SMA. Occlusion of right SMA branch. Unchanged since prior studies. - CTA reviewed, no intervention as per Dr. Mejía - CT Abd/pelvis (03/10): small and large bowel wall thickening consistent with ischemic bowel, free intraperitoneal air, interval progressive increase in extensive SQ gas/air consistent with SQ emphysema, extensive anasarca. - GI consulted, - Hem/onc consulted, - Surgery consulted, - s/p 2 ex-laps : Fluid retention - Strict I's & O's - Urine output- 335 mL over last 24 hours - Replete electrolytes as needed - Albumin 25mg IV Q6 - Lasix 40mg IV QD Endo: Type 2 diabetes melitus - Maintain euglycemia - Hypoglycemia protocol - Accuchecks Q6H with ISS and insulin in TPN - Levothyroxine 75mg IV QD Heme: Normocytic anemia - Heparin drip - Hb/Hct: 7.9/24.7 - Transfuse 1 unit PRBC today - Monitor H&H - Monitor PT/INR/PTT - Hem/Onc consulted, ID: S/p exploratory laparotomy - Tmax: 99.9 - Leukocytosis (29.3-->23.4) - downtrending - Meropenem 500 mg IV Q8H (started 03/10) - Flagyl 500 mg IV Q8H (started 03/12) - Trach Cx: Klebsiella - Blood Cx: no growth - ID consulted, PPx: VTE: heparin drip GI: PTX 40 mg IV Q12H Code status: full code- palliative consulted Case discussed with attending, Dr. Solo Cooley, PGY-1 <Loree Cavazos - Last Filed: 03/21/18 15:02> CCU Objective - Vital Signs / Intake & Output Vital Signs (Last 4 hours): Vital Signs Temp Pulse Resp BP Pulse Ox 03/21/18 14:25 98.8 F 94 H 21 134/54 L 03/21/18 14:07 98.6 F 101 H 24 139/58 L 03/21/18 13:02 93 H 23 129/52 L 99 03/21/18 13:00 93 H 22 99 03/21/18 12:02 96 H 35 H 119/84 98 03/21/18 12:00 95 H 27 H 96 03/21/18 11:02 95 H 33 H 137/54 L 98 Intake and Output (Last 8hrs): Intake & Output 03/21/18 03/21/18 03/21/18 06:59 14:59 22:59 Intake Total 1056.8 1162.8 Output Total 130 Balance 926.8 1162.8 Weight 223 lb 1.725 oz Intake: IV 250 Intake, IV Amount 1056.8 912.8 Left Wrist 76.8 76.8 Medial Port 294 Right Distal IJ 300 Right Distal Port 336 336 Internal Jugular Right Medial Port 350 200 Internal Jugular Blood Product 0 Red Blood Cells Cpd As1 0 Lr Unit [id number] Output: Drainage 50 LEFT JEJUNOSTOMY 0 abdominal wound drain 50 Urine 80 Urethral (Tran) 80 - Medications Active Medications: Active Medications Generic Name Dose Route Start Last Admin Trade Name Freq PRN Reason Stop Dose Admin Albumin Human 25 gm 03/20/18 10:00 03/21/18 10:55 Albumin Human 25% (12.5 Gm/50 Ml) IV 25 gm Q6H ARPIT Administration Albuterol/Ipratropium 3 ml 03/21/18 14:00 Duoneb 3 Mg/0.5 Mg (3 Ml) Ud INH RQ6 ARPIT Dextrose 0 ml 03/06/18 15:02 03/11/18 00:13 Dextrose 50% Inj IV 50 ml STAT PRN Administration Hypoglycemia Protocol Protocol Dextrose 0 gm 03/06/18 15:02 Glutose 15 PO ONCE PRN Hypoglycemia Protocol Protocol Furosemide 40 mg 03/21/18 08:52 03/21/18 09:23 Lasix IVP 40 mg DAILY ARPIT Administration Glucagon 0 mg 03/06/18 15:02 Glucagen Diagnostic Kit IM STAT PRN Hypoglycemia Protocol Protocol Hydromorphone HCl 0.5 mg 03/19/18 11:26 03/21/18 08:37 Dilaudid IVP 0.5 mg Q3 PRN Administration Pain, severe (8-10) Meropenem 500 mg/ Sodium 100 mls @ 100 mls/hr 03/12/18 17:00 03/21/18 08:13 Chloride IVPB 100 mls/hr Q8H ARPIT Administration Protocol Metronidazole 500 mg in 100 mls @ 100 mls/hr 03/13/18 15:00 03/21/18 14:49 Flagyl IVPB 100 mls/hr Q8H ARPIT Administration Protocol Heparin Sodium/Sodium Chloride 25,000 units in 250 mls @ 9.61 mls/hr 03/20/18 06:38 03/21/18 11:11 Heparin 03265 Units/250ml 1/2 Normal Saline IV 9 units/kg/hr .Q24H PRN 9.61 mls/hr PROTOCOL Administration Protocol 9 UNITS/KG/HR Multivitamins/Vitamin C 10 ml/ 1,011 mls @ 42 mls/hr 03/20/18 18:00 03/20/18 17:46 Chromium/Copper/Manganese/ IV 03/21/18 17:59 42 mls/hr Zinc 1 ml/ Amino Acids/ .Q24H ARPIT Administration Electrolytes/Dextrose Dexmedetomidine HCl 200 mcg/ 50 mls @ 5.06 mls/hr 03/21/18 09:04 Sodium Chloride IV TITR PRN Agitation Protocol 0.2 MCG/KG/HR Multivitamins/Vitamin C 10 ml/ 1,011.1 mls @ 42 mls/hr 03/21/18 18:00 Chromium/Copper/Manganese/ IV 03/22/18 17:59 Zinc 1 ml/ Insulin Human .Q24H ARPIT Regular 10 unit/ Amino Acids/ Electrolytes/Dextrose Insulin Aspart 0 unit 03/21/18 06:00 03/21/18 12:17 Novolog SC 4 units Q6 ARPIT Administration Protocol Levothyroxine Sodium 75 mcg 03/21/18 10:00 03/21/18 09:24 Levothyroxine IVP 75 mcg DAILY ARPIT Administration Pantoprazole Sodium 40 mg 03/07/18 10:00 03/21/18 09:15 Protonix Inj IVP 40 mg Q12H ARPIT Administration Vitamin A 0.5 ea 03/10/18 20:33 03/20/18 22:33 Vitamin A & D Oint Ud Foilpak TOP 0.5 ea Q4 PRN Administration Lip dryness - Patient Studies Lab Studies: Microbiology Studies 03/17/18 00:52 Blood Culture - Preliminary Blood NO GROWTH AFTER 4 DAYS 03/17/18 00:52 Blood Culture - Preliminary Blood NO GROWTH AFTER 4 DAYS Lab Studies 03/21/18 03/21/18 03/21/18 Range/Units 12:14 06:23 06:23 WBC 23.4 H (4.8-10.8) K/uL RBC 2.60 L (3.80-5.20) Mil/uL Hgb 7.9 L (11.0-16.0) g/dL Hct 24.7 L (34.0-47.0) % MCV 94.7 (81.0-99.0) fL MCH 30.3 (27.0-31.0) pg MCHC 32.0 L (33.0-37.0) g/dL RDW 17.6 H (11.5-14.5) % Plt Count 292 (130-400) K/uL MPV 11.6 (7.2-11.7) fL Neut % (Auto) 80.6 H (50.0-75.0) % Lymph % (Auto) 14.8 L (20.0-40.0) % Rhea % (Auto) 3.4 (0.0-10.0) % Eos % (Auto) 0.5 (0.0-4.0) % Baso % (Auto) 0.7 (0.0-2.0) % Neut # (Auto) 18.8 H (1.8-7.0) K/uL Lymph # (Auto) 3.5 (1.0-4.3) K/uL Rhea # (Auto) 0.8 (0.0-0.8) K/uL Eos # (Auto) 0.1 (0.0-0.7) K/uL Baso # (Auto) 0.2 (0.0-0.2) K/uL APTT 65 H (21-34) SECONDS Puncture Site pCO2 (35-45) mm/Hg pO2 (80-100) mm/Hg HCO3 (21-28) mmol/L ABG pH (7.35-7.45) ABG Total CO2 (22-28) mmol/L ABG O2 Saturation (95-98) % ABG Base Excess (-2.0-3.0) mmol/L Michele Test ABG Potassium (3.6-5.2) mmol/L A-a O2 Difference mm/Hg Respiratory Index Sodium (132-148) mmol/l Chloride (98-107) mmol/L Glucose (65-105) mg/dl Lactate (0.7-2.1) mmol/L Vent Mode Mechanical Rate FiO2 % Tidal Volume PEEP Potassium (3.6-5.2) mmol/L Carbon Dioxide (22-30) mmol/L Anion Gap (10-20) BUN (7-17) mg/dL Creatinine (0.7-1.2) mg/dL Est GFR ( Amer) Est GFR (Non-Af Amer) POC Glucose (mg/dL) 244 H (65-110) mg/dL Random Glucose (65-105) mg/dL Calcium (8.6-10.4) mg/dl Phosphorus (2.5-4.5) mg/dL Magnesium (1.6-2.3) mg/dL Total Bilirubin (0.2-1.3) mg/dL AST (14-36) U/L ALT (9-52) U/L Alkaline Phosphatase (38-126) U/L Total Protein (6.3-8.3) g/dL Albumin (3.5-5.0) g/dL Globulin (2.2-3.9) gm/dL Albumin/Globulin Ratio (1.0-2.1) Arterial Blood Potassium (3.6-5.2) mmol/L Blood Type Antibody Screen 03/21/18 03/21/18 03/21/18 Range/Units 06:20 05:25 04:20 WBC (4.8-10.8) K/uL RBC (3.80-5.20) Mil/uL Hgb (11.0-16.0) g/dL Hct (34.0-47.0) % MCV (81.0-99.0) fL MCH (27.0-31.0) pg MCHC (33.0-37.0) g/dL RDW (11.5-14.5) % Plt Count (130-400) K/uL MPV (7.2-11.7) fL Neut % (Auto) (50.0-75.0) % Lymph % (Auto) (20.0-40.0) % Rhea % (Auto) (0.0-10.0) % Eos % (Auto) (0.0-4.0) % Baso % (Auto) (0.0-2.0) % Neut # (Auto) (1.8-7.0) K/uL Lymph # (Auto) (1.0-4.3) K/uL Rhea # (Auto) (0.0-0.8) K/uL Eos # (Auto) (0.0-0.7) K/uL Baso # (Auto) (0.0-0.2) K/uL APTT (21-34) SECONDS Puncture Site Rr pCO2 29 L (35-45) mm/Hg pO2 131 H (80-100) mm/Hg HCO3 23.3 (21-28) mmol/L ABG pH 7.46 H (7.35-7.45) ABG Total CO2 21.5 L (22-28) mmol/L ABG O2 Saturation 99.6 H (95-98) % ABG Base Excess -2.1 L (-2.0-3.0) mmol/L Michele Test Pos ABG Potassium 3.3 L (3.6-5.2) mmol/L A-a O2 Difference 154.0 mm/Hg Respiratory Index 1.2 Sodium 141 141.0 (132-148) mmol/l Chloride 108 H 114.0 H (98-107) mmol/L Glucose 232 H (65-105) mg/dl Lactate 2.3 H (0.7-2.1) mmol/L Vent Mode Prvc Mechanical Rate 12 FiO2 45.0 % Tidal Volume 400 PEEP 5 Potassium 3.4 L (3.6-5.2) mmol/L Carbon Dioxide 21 L (22-30) mmol/L Anion Gap 16 (10-20) BUN 23 H (7-17) mg/dL Creatinine 0.9 (0.7-1.2) mg/dL Est GFR ( Amer) > 60 Est GFR (Non-Af Amer) > 60 POC Glucose (mg/dL) 238 H (65-110) mg/dL Random Glucose 218 H (65-105) mg/dL Calcium 7.7 L (8.6-10.4) mg/dl Phosphorus 4.1 (2.5-4.5) mg/dL Magnesium 1.8 (1.6-2.3) mg/dL Total Bilirubin 4.7 H (0.2-1.3) mg/dL AST 35 (14-36) U/L ALT 26 (9-52) U/L Alkaline Phosphatase 78 (38-126) U/L Total Protein 5.8 L (6.3-8.3) g/dL Albumin 2.6 L D (3.5-5.0) g/dL Globulin 3.2 (2.2-3.9) gm/dL Albumin/Globulin Ratio 0.8 L (1.0-2.1) Arterial Blood Potassium 3.3 L (3.6-5.2) mmol/L Blood Type Antibody Screen 03/20/18 03/20/18 03/20/18 Range/Units 23:34 17:40 11:15 WBC (4.8-10.8) K/uL RBC (3.80-5.20) Mil/uL Hgb (11.0-16.0) g/dL Hct (34.0-47.0) % MCV (81.0-99.0) fL MCH (27.0-31.0) pg MCHC (33.0-37.0) g/dL RDW (11.5-14.5) % Plt Count (130-400) K/uL MPV (7.2-11.7) fL Neut % (Auto) (50.0-75.0) % Lymph % (Auto) (20.0-40.0) % Rhea % (Auto) (0.0-10.0) % Eos % (Auto) (0.0-4.0) % Baso % (Auto) (0.0-2.0) % Neut # (Auto) (1.8-7.0) K/uL Lymph # (Auto) (1.0-4.3) K/uL Rhea # (Auto) (0.0-0.8) K/uL Eos # (Auto) (0.0-0.7) K/uL Baso # (Auto) (0.0-0.2) K/uL APTT (21-34) SECONDS Puncture Site pCO2 (35-45) mm/Hg pO2 (80-100) mm/Hg HCO3 (21-28) mmol/L ABG pH (7.35-7.45) ABG Total CO2 (22-28) mmol/L ABG O2 Saturation (95-98) % ABG Base Excess (-2.0-3.0) mmol/L Michele Test ABG Potassium (3.6-5.2) mmol/L A-a O2 Difference mm/Hg Respiratory Index Sodium (132-148) mmol/l Chloride (98-107) mmol/L Glucose (65-105) mg/dl Lactate (0.7-2.1) mmol/L Vent Mode Mechanical Rate FiO2 % Tidal Volume PEEP Potassium (3.6-5.2) mmol/L Carbon Dioxide (22-30) mmol/L Anion Gap (10-20) BUN (7-17) mg/dL Creatinine (0.7-1.2) mg/dL Est GFR ( Amer) Est GFR (Non-Af Amer) POC Glucose (mg/dL) 227 H 194 H 184 H (65-110) mg/dL Random Glucose (65-105) mg/dL Calcium (8.6-10.4) mg/dl Phosphorus (2.5-4.5) mg/dL Magnesium (1.6-2.3) mg/dL Total Bilirubin (0.2-1.3) mg/dL AST (14-36) U/L ALT (9-52) U/L Alkaline Phosphatase (38-126) U/L Total Protein (6.3-8.3) g/dL Albumin (3.5-5.0) g/dL Globulin (2.2-3.9) gm/dL Albumin/Globulin Ratio (1.0-2.1) Arterial Blood Potassium (3.6-5.2) mmol/L Blood Type Antibody Screen 03/20/18 03/20/18 Range/Units 10:39 05:09 WBC (4.8-10.8) K/uL RBC (3.80-5.20) Mil/uL Hgb (11.0-16.0) g/dL Hct (34.0-47.0) % MCV (81.0-99.0) fL MCH (27.0-31.0) pg MCHC (33.0-37.0) g/dL RDW (11.5-14.5) % Plt Count (130-400) K/uL MPV (7.2-11.7) fL Neut % (Auto) (50.0-75.0) % Lymph % (Auto) (20.0-40.0) % Rhea % (Auto) (0.0-10.0) % Eos % (Auto) (0.0-4.0) % Baso % (Auto) (0.0-2.0) % Neut # (Auto) (1.8-7.0) K/uL Lymph # (Auto) (1.0-4.3) K/uL Rhea # (Auto) (0.0-0.8) K/uL Eos # (Auto) (0.0-0.7) K/uL Baso # (Auto) (0.0-0.2) K/uL APTT (21-34) SECONDS Puncture Site pCO2 (35-45) mm/Hg pO2 (80-100) mm/Hg HCO3 (21-28) mmol/L ABG pH (7.35-7.45) ABG Total CO2 (22-28) mmol/L ABG O2 Saturation (95-98) % ABG Base Excess (-2.0-3.0) mmol/L Michele Test ABG Potassium (3.6-5.2) mmol/L A-a O2 Difference mm/Hg Respiratory Index Sodium (132-148) mmol/l Chloride (98-107) mmol/L Glucose (65-105) mg/dl Lactate (0.7-2.1) mmol/L Vent Mode Mechanical Rate FiO2 % Tidal Volume PEEP Potassium (3.6-5.2) mmol/L Carbon Dioxide (22-30) mmol/L Anion Gap (10-20) BUN (7-17) mg/dL Creatinine (0.7-1.2) mg/dL Est GFR ( Amer) Est GFR (Non-Af Amer) POC Glucose (mg/dL) 161 H (65-110) mg/dL Random Glucose (65-105) mg/dL Calcium (8.6-10.4) mg/dl Phosphorus (2.5-4.5) mg/dL Magnesium (1.6-2.3) mg/dL Total Bilirubin (0.2-1.3) mg/dL AST (14-36) U/L ALT (9-52) U/L Alkaline Phosphatase (38-126) U/L Total Protein (6.3-8.3) g/dL Albumin (3.5-5.0) g/dL Globulin (2.2-3.9) gm/dL Albumin/Globulin Ratio (1.0-2.1) Arterial Blood Potassium (3.6-5.2) mmol/L Blood Type A POSITIVE Antibody Screen Negative Laboratory Results - last 24 hr 03/20/18 03/20/18 03/20/18 05:09 10:39 11:15 WBC RBC Hgb Hct MCV MCH MCHC RDW Plt Count MPV Neut % (Auto) Lymph % (Auto) Rhea % (Auto) Eos % (Auto) Baso % (Auto) Neut # (Auto) Lymph # (Auto) Rhea # (Auto) Eos # (Auto) Baso # (Auto) APTT Puncture Site pCO2 pO2 HCO3 ABG pH ABG Total CO2 ABG O2 Saturation ABG Base Excess Michele Test ABG Potassium A-a O2 Difference Respiratory Index Sodium Chloride Glucose Lactate Vent Mode Mechanical Rate FiO2 Tidal Volume PEEP Potassium Carbon Dioxide Anion Gap BUN Creatinine Est GFR ( Amer) Est GFR (Non-Af Amer) POC Glucose (mg/dL) 161 H 184 H Random Glucose Calcium Phosphorus Magnesium Total Bilirubin AST ALT Alkaline Phosphatase Total Protein Albumin Globulin Albumin/Globulin Ratio Arterial Blood Potassium Blood Type A POSITIVE Antibody Screen Negative 03/20/18 03/20/18 03/21/18 17:40 23:34 04:20 WBC RBC Hgb Hct MCV MCH MCHC RDW Plt Count MPV Neut % (Auto) Lymph % (Auto) Rhea % (Auto) Eos % (Auto) Baso % (Auto) Neut # (Auto) Lymph # (Auto) Rhea # (Auto) Eos # (Auto) Baso # (Auto) APTT Puncture Site Rr pCO2 29 L pO2 131 H HCO3 23.3 ABG pH 7.46 H ABG Total CO2 21.5 L ABG O2 Saturation 99.6 H ABG Base Excess -2.1 L Michele Test Pos ABG Potassium 3.3 L A-a O2 Difference 154.0 Respiratory Index 1.2 Sodium 141.0 Chloride 114.0 H Glucose 232 H Lactate 2.3 H Vent Mode Prvc Mechanical Rate 12 FiO2 45.0 Tidal Volume 400 PEEP 5 Potassium Carbon Dioxide Anion Gap BUN Creatinine Est GFR ( Amer) Est GFR (Non-Af Amer) POC Glucose (mg/dL) 194 H 227 H Random Glucose Calcium Phosphorus Magnesium Total Bilirubin AST ALT Alkaline Phosphatase Total Protein Albumin Globulin Albumin/Globulin Ratio Arterial Blood Potassium 3.3 L Blood Type Antibody Screen 03/21/18 03/21/18 03/21/18 05:25 06:20 06:23 WBC 23.4 H RBC 2.60 L Hgb 7.9 L Hct 24.7 L MCV 94.7 MCH 30.3 MCHC 32.0 L RDW 17.6 H Plt Count 292 MPV 11.6 Neut % (Auto) 80.6 H Lymph % (Auto) 14.8 L Rhea % (Auto) 3.4 Eos % (Auto) 0.5 Baso % (Auto) 0.7 Neut # (Auto) 18.8 H Lymph # (Auto) 3.5 Rhea # (Auto) 0.8 Eos # (Auto) 0.1 Baso # (Auto) 0.2 APTT Puncture Site pCO2 pO2 HCO3 ABG pH ABG Total CO2 ABG O2 Saturation ABG Base Excess Michele Test ABG Potassium A-a O2 Difference Respiratory Index Sodium 141 Chloride 108 H Glucose Lactate Vent Mode Mechanical Rate FiO2 Tidal Volume PEEP Potassium 3.4 L Carbon Dioxide 21 L Anion Gap 16 BUN 23 H Creatinine 0.9 Est GFR ( Amer) > 60 Est GFR (Non-Af Amer) > 60 POC Glucose (mg/dL) 238 H Random Glucose 218 H Calcium 7.7 L Phosphorus 4.1 Magnesium 1.8 Total Bilirubin 4.7 H AST 35 ALT 26 Alkaline Phosphatase 78 Total Protein 5.8 L Albumin 2.6 L D Globulin 3.2 Albumin/Globulin Ratio 0.8 L Arterial Blood Potassium Blood Type Antibody Screen 03/21/18 03/21/18 06:23 12:14 WBC RBC Hgb Hct MCV MCH MCHC RDW Plt Count MPV Neut % (Auto) Lymph % (Auto) Rhea % (Auto) Eos % (Auto) Baso % (Auto) Neut # (Auto) Lymph # (Auto) Rhea # (Auto) Eos # (Auto) Baso # (Auto) APTT 65 H Puncture Site pCO2 pO2 HCO3 ABG pH ABG Total CO2 ABG O2 Saturation ABG Base Excess Michele Test ABG Potassium A-a O2 Difference Respiratory Index Sodium Chloride Glucose Lactate Vent Mode Mechanical Rate FiO2 Tidal Volume PEEP Potassium Carbon Dioxide Anion Gap BUN Creatinine Est GFR ( Amer) Est GFR (Non-Af Amer) POC Glucose (mg/dL) 244 H Random Glucose Calcium Phosphorus Magnesium Total Bilirubin AST ALT Alkaline Phosphatase Total Protein Albumin Globulin Albumin/Globulin Ratio Arterial Blood Potassium Blood Type Antibody Screen Critical Care Progress Note - Nutrition Nutrition: Nutrition Category Date Time Status NPO Diet [DIET] Diets 03/06/18 Breakfast Active Assessment/Plan - Assessment and Plan (Free Text) Plan: patient seen and examined at bedside. 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
[2018-03-21] MEDS: Heparin25000 units/250ml 1/2NS 25,000 UNITS/250 ML BAG IV PRN (11:11)
[2018-03-21] MEDS ORDERED: [UNRECOGNIZED DRUG - OTHER] IV SCH (12:15)
[2018-03-21] MEDS ORDERED: TPN IV SCH ×2 (12:15→18:00)
--- NOTE | 2018-03-21 19:06 | CP.PCM.PN ---
Subjective - Date & Time of Evaluation Date of Evaluation: 03/21/18 Time of Evaluation: 13:00 - Subjective Subjective: clinically same Objective - Vital Signs/Intake and Output Vital Signs (last 24 hours): Temp Pulse Resp BP Pulse Ox 99.2 F 96 H 23 143/74 99 03/21/18 17:00 03/21/18 18:00 03/21/18 18:00 03/21/18 17:59 03/21/18 18:00 Intake and Output: 03/21/18 03/22/18 18:59 06:59 Intake Total 2044.2 Balance 2044.2 - Medications Medications: Current Medications Albumin Human (Albumin Human 25% (12.5 Gm/50 Ml)) 25 gm IV Q6H ARPIT Last Admin: 03/21/18 15:51 Dose: 25 gm Albuterol/Ipratropium (Duoneb 3 Mg/0.5 Mg (3 Ml) Ud) 3 ml INH RQ6 ARPIT Dextrose (Dextrose 50% Inj) 0 ml IV STAT PRN; Protocol PRN Reason: Hypoglycemia Protocol Last Admin: 03/11/18 00:13 Dose: 50 ml Dextrose (Glutose 15) 0 gm PO ONCE PRN; Protocol PRN Reason: Hypoglycemia Protocol Furosemide (Lasix) 40 mg IVP DAILY ARPIT Last Admin: 03/21/18 09:23 Dose: 40 mg Glucagon (Glucagen Diagnostic Kit) 0 mg IM STAT PRN; Protocol PRN Reason: Hypoglycemia Protocol Hydromorphone HCl (Dilaudid) 0.5 mg IVP Q3 PRN PRN Reason: Pain, severe (8-10) Last Admin: 03/21/18 08:37 Dose: 0.5 mg Meropenem 500 mg/ Sodium (Chloride) 100 mls @ 100 mls/hr IVPB Q8H ARPIT; Protocol Last Admin: 03/21/18 17:19 Dose: 100 mls/hr Metronidazole (Flagyl) 500 mg in 100 mls @ 100 mls/hr IVPB Q8H ARPIT; Protocol Last Admin: 03/21/18 14:49 Dose: 100 mls/hr Heparin Sodium/Sodium Chloride (Heparin 59003 Units/250ml 1/2 Normal Saline) 25,000 units in 250 mls @ 9.61 mls/hr IV .Q24H PRN; Protocol PRN Reason: PROTOCOL Last Admin: 03/21/18 11:11 Dose: 9 units/kg/hr, 9.61 mls/hr Dexmedetomidine HCl 200 mcg/ (Sodium Chloride) 50 mls @ 5.06 mls/hr IV TITR PRN; Protocol PRN Reason: Agitation Multivitamins/Vitamin C 10 ml/Chromium/Copper/Manganese/Zinc 1 ml/ Insulin Human Regular 10 unit/ Amino Acids/Electrolytes/Dextrose 1,011.1 mls @ 42 mls/hr IV .Q24H ARPIT Stop: 03/22/18 17:59 Last Admin: 03/21/18 18:21 Dose: 42 mls/hr Insulin Aspart (Novolog) 0 unit SC Q6 ARPIT; Protocol Last Admin: 03/21/18 18:19 Dose: 4 units Levothyroxine Sodium (Levothyroxine) 75 mcg IVP DAILY ARPIT Last Admin: 03/21/18 09:24 Dose: 75 mcg Pantoprazole Sodium (Protonix Inj) 40 mg IVP Q12H ARPIT Last Admin: 03/21/18 09:15 Dose: 40 mg Vitamin A (Vitamin A & D Oint Ud Foilpak) 0.5 ea TOP Q4 PRN PRN Reason: Lip dryness Last Admin: 03/20/18 22:33 Dose: 0.5 ea - Labs Labs: 03/21/18 06:23 03/21/18 06:20 PT 15.7 SECONDS (9.7-12.2) H 03/11/18 04:15 INR 1.4 03/11/18 04:15 APTT 65 SECONDS (21-34) H 03/21/18 06:23 - Constitutional Appears: Well - Head Exam Head Exam: ATRAUMATIC, NORMAL INSPECTION, NORMOCEPHALIC - Eye Exam Eye Exam: EOMI, Normal appearance, PERRL Pupil Exam: NORMAL ACCOMODATION, PERRL - ENT Exam ENT Exam: Mucous Membranes Moist, Normal Exam - Neck Exam Neck Exam: Full ROM, Normal Inspection. absent: Lymphadenopathy - Respiratory Exam Respiratory Exam: Decreased Breath Sounds - Cardiovascular Exam Cardiovascular Exam: REGULAR RHYTHM, +S1, +S2 - GI/Abdominal Exam GI & Abdominal Exam: Soft, Diminished Bowel Sounds - Rectal Exam Rectal Exam: Deferred
[2018-03-21] MEDS: Albuterol-Ipratrop 3 mg / 0.5 (3 ml) UD INH SCH (19:23)
[2018-03-22] MEDS: Meropenem 500 MG in Sodium Chloride 0.9% 100 ML IVPB SCH ×3 (00:44→16:28)
[2018-03-22] MEDS: (Novolog) Insulin Aspart, Recombinant 100 u/ml 10 ml vial SC SCH ×5 (01:00→23:54)
[2018-03-22] MEDS: Albuterol-Ipratrop 3 mg / 0.5 (3 ml) UD INH SCH ×4 (02:32→20:35)
[2018-03-22] MEDS: Albumin Human 25% (12.5 gm/50 ml) IV SCH ×4 (03:42→21:17)
[2018-03-22 06:09] LABS: ABG ALLEN TEST POS; ARTERIAL BLOOD GAS HCO3 22.8 mmol/L (21-28); ARTERIAL BLOOD GAS HEMOGLOBIN 9.6 g/dL (11.7-17.4); ARTERIAL BLOOD GAS O2 SAT 99.5 % (95-98); ARTERIAL BLOOD GAS PCO2 25 mm/Hg (35-45); ARTERIAL BLOOD GAS PO2 88 mm/Hg (80-100); ARTERIAL BLOOD GAS TCO2 20.3 mmol/L (22-28)
[2018-03-22 06:30] LABS: ALB/GLOB RATIO 1.1 (1.0-2.1); ALBUMIN 3.3 g/dL (3.5-5.0); ALT/SGPT 44 U/L (9-52); AST/SGOT 141 U/L (14-36); BLOOD UREA NITROGEN 22 mg/dL (7-17); CALCIUM 8.1 mg/dl (8.6-10.4); GFR NON-AFRICAN AMERICAN > 60
[2018-03-22 06:33] LABS: BASO # 0.1 K/uL (0.0-0.2); BASO % 0.7 % (0.0-2.0); EOS # 0.1 K/uL (0.0-0.7); EOS % 0.5 % (0.0-4.0); HEMOGLOBIN 9.5 g/dL (11.0-16.0); LYMPH # 3.4 K/uL (1.0-4.3); LYMPH % 20.7 % (20.0-40.0); MEAN CELL VOLUME 91.9 fL (81.0-99.0); MEAN CORPUSCULAR HEMOGLOBIN 30.9 pg (27.0-31.0); MEAN CORPUSCULAR HGB CONC 33.6 g/dL (33.0-37.0); MEAN PLATELET VOLUME 11.6 fL (7.2-11.7); MONO # 0.6 K/uL (0.0-0.8); MONO % 3.8 % (0.0-10.0); NEUT # 12.3 K/uL (1.8-7.0); NEUT % 74.3 % (50.0-75.0); NRBC % 0.1 % (0.0-2.0); RBC 3.08 Mil/uL (3.80-5.20); RED CELL DISTRIBUTION WIDTH 16.4 % (11.5-14.5); WHITE BLOOD COUNT 16.5 K/uL (4.8-10.8)
[2018-03-22 06:43] LABS: PROTHROMBIN TIME 21.5 SECONDS (9.7-12.2)
[2018-03-22] MEDS: metroNIDAZOLE IV 500 mg/100 ml 500 MG/100 ML BAG IVPB SCH ×3 (06:43→23:30)
[2018-03-22] MEDS: Levothyroxine 200 mcg (0.2 mg) Inj IVP SCH (10:00)
[2018-03-22] MEDS ORDERED: Fluconazole IV 200mg/100 ml NS 100 ML IVPB STA (10:59)
[2018-03-22] MEDS ORDERED: Vancomycin 1 gm/D5W 200 ml 1 GM/200 ML BAG IVPB ONE (11:25)
[2018-03-22] MEDS ORDERED: Midazolam 2 MG/2 ML VIAL ONE (12:53)
--- NOTE | 2018-03-22 13:00 | RAD ---
Date of service: 03/22/2018 HISTORY: pt intubated COMPARISON: 03/21/2018 FINDINGS: LUNGS: Bibasilar opacities, unchanged accounting for differences in technique. PLEURA: No significant pleural effusion identified, no pneumothorax apparent. CARDIOVASCULAR: Normal heart size. No congestive change. ET tube, NG tube and right IJ central venous catheter are unchanged. Normal cardiac size. No pulmonary vascular congestion. OSSEOUS STRUCTURES: No significant abnormalities. VISUALIZED UPPER ABDOMEN: Normal. OTHER FINDINGS: None. IMPRESSION: Nonspecific bibasilar opacities. Lines and tubes unchanged.
--- NOTE | 2018-03-22 13:24 | PCM.SURG1 ---
Surgeon's Initial Post Op Note - Surgeon's Notes Surgeon: Dr. Freitas Laborer Driver: Mila Aiken PGY2 Type of Anesthesia: General Endo Pre-Operative Diagnosis: mesenteric ischemia, necrotic bowel Operative Findings: diffuse necrotic bowel with peroforation, distal jejunosotomy tube extraluminal in the peritoneum Post-Operative Diagnosis: same Operation Performed: exploratory laparotomy, resection of necrotic bowel without anasamosis, removal of jejunostomy tube, extensive washout Specimen/Specimens Removed: small bowel segment, mesentery Estimated Blood Loss: EBL {In ML}: 50 Blood Products Given: FFP (1) Drains Used: No Drains Post-Op Condition: Poor Date of Surgery/Procedure: 03/22/18 Time of Surgery/Procedure: 11:30
[2018-03-22] MEDS: Heparin25000 units/250ml 1/2NS 25,000 UNITS/250 ML BAG IV PRN (14:19)
--- NOTE | 2018-03-22 15:32 | CP.PCM.PN ---
Subjective - Date & Time of Evaluation Date of Evaluation: 03/22/18 Time of Evaluation: 15:30 - Subjective Subjective: Patient sedated post procedure, intubated. limited ROS Objective - Vital Signs/Intake and Output Vital Signs (last 24 hours): Temp Pulse Resp BP Pulse Ox 98.4 F 100 H 15 161/71 H 97 03/22/18 13:15 03/22/18 14:24 03/22/18 14:24 03/22/18 14:24 03/22/18 14:24 Intake and Output: 03/22/18 03/22/18 06:59 18:59 Intake Total 1163.4 1348.6 Output Total 655 485 Balance 508.4 863.6 - Medications Medications: Current Medications Albumin Human (Albumin Human 25% (12.5 Gm/50 Ml)) 25 gm IV Q6H ARPIT Last Admin: 03/22/18 09:48 Dose: 25 gm Albuterol/Ipratropium (Duoneb 3 Mg/0.5 Mg (3 Ml) Ud) 3 ml INH RQ6 ARPIT Last Admin: 03/22/18 13:31 Dose: 3 ml Dextrose (Dextrose 50% Inj) 0 ml IV STAT PRN; Protocol PRN Reason: Hypoglycemia Protocol Last Admin: 03/11/18 00:13 Dose: 50 ml Dextrose (Glutose 15) 0 gm PO ONCE PRN; Protocol PRN Reason: Hypoglycemia Protocol Furosemide (Lasix) 40 mg IVP DAILY ARPIT Last Admin: 03/22/18 09:49 Dose: 40 mg Glucagon (Glucagen Diagnostic Kit) 0 mg IM STAT PRN; Protocol PRN Reason: Hypoglycemia Protocol Hydromorphone HCl (Dilaudid) 0.5 mg IVP Q3 PRN PRN Reason: Pain, severe (8-10) Last Admin: 03/21/18 08:37 Dose: 0.5 mg Meropenem 500 mg/ Sodium (Chloride) 100 mls @ 100 mls/hr IVPB Q8H ARPIT; Protocol Last Admin: 03/22/18 08:29 Dose: 100 mls/hr Metronidazole (Flagyl) 500 mg in 100 mls @ 100 mls/hr IVPB Q8H ARP[facility]; Protocol Last Admin: 03/22/18 06:43 Dose: 100 mls/hr Heparin Sodium/Sodium Chloride (Heparin 22377 Units/250ml 1/2 Normal Saline) 25,000 units in 250 mls @ 9.61 mls/hr IV .Q24H PRN; Protocol PRN Reason: PROTOCOL Last Admin: 03/22/18 14:19 Dose: 9 units/kg/hr, 9.61 mls/hr Dexmedetomidine HCl 200 mcg/ (Sodium Chloride) 50 mls @ 5.06 mls/hr IV TITR PRN; Protocol PRN Reason: Agitation Multivitamins/Vitamin C 10 ml/Chromium/Copper/Manganese/Zinc 1 ml/ Insulin Human Regular 10 unit/ Amino Acids/Electrolytes/Dextrose 1,011.1 mls @ 42 mls/hr IV .Q24H ARPIT Stop: 03/22/18 17:59 Last Admin: 03/21/18 18:21 Dose: 42 mls/hr Multivitamins/Vitamin C 10 ml/Chromium/Copper/Manganese/Zinc 1 ml/ Amino Ac ids/Electrolytes/Dextrose 1,011 mls @ 42 mls/hr IV .Q24H ONE Stop: 03/23/18 17:59 Insulin Aspart (Novolog) 0 unit SC Q6 ARPIT; Protocol Last Admin: 03/22/18 05:25 Dose: 2 units Levothyroxine Sodium (Levothyroxine) 75 mcg IVP DAILY ARPIT Last Admin: 03/22/18 10:00 Dose: 75 mcg Pantoprazole Sodium (Protonix Inj) 40 mg IVP Q12H ARPIT Last Admin: 03/22/18 09:49 Dose: 40 mg Vitamin A (Vitamin A & D Oint Ud Foilpak) 0.5 ea TOP Q4 PRN PRN Reason: Lip dryness Last Admin: 03/20/18 22:33 Dose: 0.5 ea - Labs Labs: 03/22/18 06:23 03/22/18 06:07 PT 21.5 SECONDS (9.7-12.2) H 03/22/18 06:30 INR 2.0 03/22/18 06:30 APTT 54 SECONDS (21-34) H D 03/22/18 06:30 - Head Exam Head Exam: ATRAUMATIC, NORMAL INSPECTION - ENT Exam ENT Exam: Mucous Membranes Moist - Respiratory Exam Respiratory Exam: Clear to Ausculation Bilateral, Rales, NORMAL BREATHING PATTERN - Cardiovascular Exam Cardiovascular Exam: +S1, +S2, Murmur - GI/Abdominal Exam Additional comments: surgical dressing, drain - Extremities Exam Extremities Exam: Pedal Edema - Neurological Exam Neurological Exam: absent: Alert, CN II-XII Intact - Skin Skin Exam: Normal Color Assessment and Plan - Assessment and Plan (Free Text) Assessment: 82 yo female with 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
[2018-03-22] MEDS ORDERED: TPN IV ONE (18:00)
[2018-03-22 18:16] LABS: BASO # 0.1 K/uL (0.0-0.2); BASO % 0.7 % (0.0-2.0); EOS # 0.1 K/uL (0.0-0.7); EOS % 0.6 % (0.0-4.0); HEMOGLOBIN 8.4 g/dL (11.0-16.0); LYMPH # 3.5 K/uL (1.0-4.3); LYMPH % 18.2 % (20.0-40.0); MEAN CELL VOLUME 93.8 fL (81.0-99.0); MEAN CORPUSCULAR HEMOGLOBIN 30.3 pg (27.0-31.0); MEAN CORPUSCULAR HGB CONC 32.2 g/dL (33.0-37.0); MONO # 0.8 K/uL (0.0-0.8); MONO % 4.1 % (0.0-10.0); NEUT # 14.9 K/uL (1.8-7.0); NEUT % 76.4 % (50.0-75.0); NRBC % 0.2 % (0.0-2.0); RBC 2.78 Mil/uL (3.80-5.20); RED CELL DISTRIBUTION WIDTH 17.3 % (11.5-14.5); WHITE BLOOD COUNT 19.5 K/uL (4.8-10.8)
[2018-03-22 18:31] LABS: ALB/GLOB RATIO 1.1 (1.0-2.1); ALBUMIN 3.1 g/dL (3.5-5.0); ALT/SGPT 44 U/L (9-52); AST/SGOT 139 U/L (14-36); BLOOD UREA NITROGEN 20 mg/dL (7-17); CALCIUM 7.6 mg/dl (8.6-10.4); GFR NON-AFRICAN AMERICAN > 60
[2018-03-22] MEDS: Dexmedetomidine Hydrochloride 200 MCG in Sodium Chloride 0.9% 48 ML IV PRN (19:02)
--- NOTE | 2018-03-22 19:27 | CP.PCM.PN ---
Subjective - Date & Time of Evaluation Date of Evaluation: 03/22/18 Time of Evaluation: 13:15 - Subjective Subjective: clinically same Objective - Vital Signs/Intake and Output Vital Signs (last 24 hours): Temp Pulse Resp BP Pulse Ox 98.2 F 121 H 15 180/75 H 94 L 03/22/18 16:00 03/22/18 17:10 03/22/18 17:10 03/22/18 17:10 03/22/18 17:10 Intake and Output: 03/22/18 03/23/18 18:59 06:59 Intake Total 1762.6 42 Output Total 945 75 Balance 817.6 -33 - Medications Medications: Current Medications Albumin Human (Albumin Human 25% (12.5 Gm/50 Ml)) 25 gm IV Q6H ARPIT Last Admin: 03/22/18 16:33 Dose: 25 gm Albuterol/Ipratropium (Duoneb 3 Mg/0.5 Mg (3 Ml) Ud) 3 ml INH RQ6 ARPIT Last Admin: 03/22/18 13:31 Dose: 3 ml Dextrose (Dextrose 50% Inj) 0 ml IV STAT PRN; Protocol PRN Reason: Hypoglycemia Protocol Last Admin: 03/11/18 00:13 Dose: 50 ml Dextrose (Glutose 15) 0 gm PO ONCE PRN; Protocol PRN Reason: Hypoglycemia Protocol Furosemide (Lasix) 40 mg IVP DAILY ARPIT Last Admin: 03/22/18 09:49 Dose: 40 mg Glucagon (Glucagen Diagnostic Kit) 0 mg IM STAT PRN; Protocol PRN Reason: Hypoglycemia Protocol Hydromorphone HCl (Dilaudid) 0.5 mg IVP Q3 PRN PRN Reason: Pain, severe (8-10) Last Admin: 03/21/18 08:37 Dose: 0.5 mg Meropenem 500 mg/ Sodium (Chloride) 100 mls @ 100 mls/hr IVPB Q8H ARPIT; Protocol Last Admin: 03/22/18 16:28 Dose: 100 mls/hr Metronidazole (Flagyl) 500 mg in 100 mls @ 100 mls/hr IVPB Q8H ARP[facility]; Protocol Last Admin: 03/22/18 16:27 Dose: 100 mls/hr Heparin Sodium/Sodium Chloride (Heparin 44558 Units/250ml 1/2 Normal Saline) 25,000 units in 250 mls @ 9.61 mls/hr IV .Q24H PRN; Protocol PRN Reason: PROTOCOL Last Titration: 03/22/18 14:50 Dose: 0 units/kg/hr, 0 mls/hr Multivitamins/Vitamin C 10 ml/Chromium/Copper/Manganese/Zinc 1 ml/ Amino Acids/Electrolytes/Dextrose 1,011 mls @ 42 mls/hr IV .Q24H ONE Stop: 03/23/18 17:59 Last Admin: 03/22/18 17:31 Dose: 42 mls/hr Fentanyl Citrate 2,500 mcg/ (Sodium Chloride) 250 mls @ 20.82 mls/hr IV .Q12H1M ARPIT; Protocol Last Admin: 03/22/18 19:06 Dose: 2 mcg/kg/hr, 20.82 mls/hr Dexmedetomidine HCl 200 mcg/ (Sodium Chloride) 50 mls @ 5.21 mls/hr IV TITR PRN; Protocol PRN Reason: Pain, Mild (1-3) Last Admin: 03/22/18 19:02 Dose: 0.2 mcg/kg/hr, 5.21 mls/hr Potassium Chloride (Potassium Chloride 20 Meq/100 Ml) 20 meq in 100 mls @ 50 mls/hr IVPB Q2H ARPIT Stop: 03/22/18 22:59 Insulin Aspart (Novolog) 0 unit SC Q6 ARPIT; Protocol Last Admin: 03/22/18 17:34 Dose: 4 units Levothyroxine Sodium (Levothyroxine) 75 mcg IVP DAILY [facility] Last Admin: 03/22/18 10:00 Dose: 75 mcg Pantoprazole Sodium (Protonix Inj) 40 mg IVP Q12H ARPIT Last Admin: 03/22/18 09:49 Dose: 40 mg Vitamin A (Vitamin A & D Oint Ud Foilpak) 0.5 ea TOP Q4 PRN PRN Reason: Lip dryness Last Admin: 03/20/18 22:33 Dose: 0.5 ea - Labs Labs: 03/22/18 18:11 03/22/18 18:11 PT 21.5 SECONDS (9.7-12.2) H 03/22/18 06:30 INR 2.0 03/22/18 06:30 APTT 54 SECONDS (21-34) H D 03/22/18 06:30 - Constitutional Appears: Well - Head Exam Head Exam: ATRAUMATIC, NORMAL INSPECTION, NORMOCEPHALIC - Eye Exam Eye Exam: EOMI, Normal appearance, PERRL Pupil Exam: NORMAL ACCOMODATION, PERRL - ENT Exam ENT Exam: Mucous Membranes Moist, Normal Exam - Neck Exam Neck Exam: Full ROM, Normal Inspection. absent: Lymphadenopathy - Respiratory Exam Respiratory Exam: Decreased Breath Sounds - Cardiovascular Exam Cardiovascular Exam: REGULAR RHYTHM, +S1, +S2 - GI/Abdominal Exam GI & Abdominal Exam: Soft, Diminished Bowel Sounds - Rectal Exam Rectal Exam: Deferred
[2018-03-22] MEDS: Aritificial Tears (15ml) OU SCH (21:25)
[2018-03-23] MEDS: Meropenem 500 MG in Sodium Chloride 0.9% 100 ML IVPB SCH ×3 (00:01→17:00)
[2018-03-23] MEDS: Albuterol-Ipratrop 3 mg / 0.5 (3 ml) UD INH SCH ×4 (02:21→20:19)
[2018-03-23] MEDS: Aritificial Tears (15ml) OU SCH ×6 (03:00→22:01)
[2018-03-23] MEDS: Albumin Human 25% (12.5 gm/50 ml) IV SCH ×4 (03:50→21:59)
[2018-03-23] MEDS: (Novolog) Insulin Aspart, Recombinant 100 u/ml 10 ml vial SC SCH ×3 (05:24→18:08)
[2018-03-23 05:34] LABS: ABG ALLEN TEST POS; ARTERIAL BLOOD GAS HCO3 22.2 mmol/L (21-28); ARTERIAL BLOOD GAS HEMOGLOBIN 7.6 g/dL (11.7-17.4); ARTERIAL BLOOD GAS O2 SAT 95.9 % (95-98); ARTERIAL BLOOD GAS PCO2 28 mm/Hg (35-45); ARTERIAL BLOOD GAS PH 7.46 (7.35-7.45); ARTERIAL BLOOD GAS PO2 58 mm/Hg (80-100); ARTERIAL BLOOD GAS TCO2 20.8 mmol/L (22-28)
[2018-03-23] MEDS: metroNIDAZOLE IV 500 mg/100 ml 500 MG/100 ML BAG IVPB SCH ×3 (06:03→22:02)
[2018-03-23] MEDS: Dexmedetomidine Hydrochloride 200 MCG in Sodium Chloride 0.9% 48 ML IV PRN (06:15)
[2018-03-23 06:39] LABS: BASO # 0.1 K/uL (0.0-0.2); BASO % 0.7 % (0.0-2.0); EOS # 0.1 K/uL (0.0-0.7); EOS % 0.7 % (0.0-4.0); HEMOGLOBIN 7.6 g/dL (11.0-16.0); LYMPH # 2.3 K/uL (1.0-4.3); LYMPH % 15.2 % (20.0-40.0); MEAN CELL VOLUME 93.5 fL (81.0-99.0); MEAN CORPUSCULAR HEMOGLOBIN 29.9 pg (27.0-31.0); MEAN CORPUSCULAR HGB CONC 31.9 g/dL (33.0-37.0); MEAN PLATELET VOLUME 11.7 fL (7.2-11.7); MONO # 0.7 K/uL (0.0-0.8); MONO % 4.9 % (0.0-10.0); NEUT % 78.5 % (50.0-75.0); NRBC % 0.3 % (0.0-2.0); PLATELET COUNT 249 K/uL (130-400); RBC 2.55 Mil/uL (3.80-5.20); RED CELL DISTRIBUTION WIDTH 17.4 % (11.5-14.5); WHITE BLOOD COUNT 15.3 K/uL (4.8-10.8)
[2018-03-23 06:57] LABS: ALB/GLOB RATIO 1.2 (1.0-2.1); ALBUMIN 3.4 g/dL (3.5-5.0); ALT/SGPT 44 U/L (9-52); AST/SGOT 133 U/L (14-36); BLOOD UREA NITROGEN 20 mg/dL (7-17); CALCIUM 7.8 mg/dl (8.6-10.4); GFR NON-AFRICAN AMERICAN > 60
--- NOTE | 2018-03-23 08:11 | CP.PCM.PN ---
Subjective - Date & Time of Evaluation Date of Evaluation: 03/23/18 Time of Evaluation: 06:40 - Subjective Subjective: surgery progress note for Dr. Freitas Pt seen and examined this AM. patient was started on a fentanyl and precedex drip for comfort yesterday after the OR. Patient opens eyes spontaneously but does not follow commands Objective - Vital Signs/Intake and Output Vital Signs (last 24 hours): Temp Pulse Resp BP Pulse Ox 98.5 F 78 25 H 120/46 L 95 03/23/18 04:00 03/23/18 06:00 03/23/18 06:00 03/23/18 06:00 03/23/18 06:00 Intake and Output: 03/23/18 03/23/18 06:59 18:59 Intake Total 1782.3 Output Total 715 Balance 1067.3 - Medications Medications: Current Medications Albumin Human (Albumin Human 25% (12.5 Gm/50 Ml)) 25 gm IV Q6H [facility] Last Admin: 03/23/18 03:50 Dose: 25 gm Albuterol/Ipratropium (Duoneb 3 Mg/0.5 Mg (3 Ml) Ud) 3 ml INH RQ6 [facility] Last Admin: 03/23/18 07:50 Dose: 3 ml Artificial Tears (Artificial Tears) 0.05 ml OU Q4H [facility] Last Admin: 03/23/18 06:04 Dose: 1 drop Dextrose (Dextrose 50% Inj) 0 ml IV STAT PRN; Protocol PRN Reason: Hypoglycemia Protocol Last Admin: 03/11/18 00:13 Dose: 50 ml Dextrose (Glutose 15) 0 gm PO ONCE PRN; Protocol PRN Reason: Hypoglycemia Protocol Furosemide (Lasix) 40 mg IVP DAILY [facility] Last Admin: 03/22/18 09:49 Dose: 40 mg Glucagon (Glucagen Diagnostic Kit) 0 mg IM STAT PRN; Protocol PRN Reason: Hypoglycemia Protocol Hydromorphone HCl (Dilaudid) 0.5 mg IVP Q3 PRN PRN Reason: Pain, severe (8-10) Last Admin: 03/21/18 08:37 Dose: 0.5 mg Meropenem 500 mg/ Sodium (Chloride) 100 mls @ 100 mls/hr IVPB Q8H [facility]; Protocol Last Admin: 03/23/18 00:01 Dose: 100 mls/hr Metronidazole (Flagyl) 500 mg in 100 mls @ 100 mls/hr IVPB Q8H [facility]; Protocol Last Admin: 03/23/18 06:03 Dose: 100 mls/hr Heparin Sodium/Sodium Chloride (Heparin 99249 Units/250ml 1/2 Normal Saline) 25,000 units in 250 mls @ 9.4 mls/hr IV .Q24H PRN; Protocol PRN Reason: PROTOCOL Last Titration: 03/22/18 20:30 Dose: 8.8 units/kg/hr, 9.4 mls/hr Multivitamins/Vitamin C 10 ml/Chromium/Copper/Manganese/Zinc 1 ml/ Amino Ac ids/Electrolytes/Dextrose 1,011 mls @ 42 mls/hr IV .Q24H ONE Stop: 03/23/18 17:59 Last Admin: 03/22/18 17:31 Dose: 42 mls/hr Fentanyl Citrate 2,500 mcg/ (Sodium Chloride) 250 mls @ 20.82 mls/hr IV .Q12H1M [facility]; Protocol Last Admin: 03/23/18 06:00 Dose: 2 mcg/kg/hr, 20.82 mls/hr Dexmedetomidine HCl 200 mcg/ (Sodium Chloride) 50 mls @ 5.21 mls/hr IV TITR PRN; Protocol PRN Reason: Pain, Mild (1-3) Last Admin: 03/23/18 06:15 Dose: 0.1 mcg/kg/hr, 2.6 mls/hr Insulin Aspart (Novolog) 0 unit SC Q6 [facility]; Protocol Last Admin: 03/23/18 05:24 Dose: 4 units Levothyroxine Sodium (Levothyroxine) 75 mcg IVP DAILY [facility] Last Admin: 03/22/18 10:00 Dose: 75 mcg Pantoprazole Sodium (Protonix Inj) 40 mg IVP Q12H [facility] Last Admin: 03/23/18 04:30 Dose: 40 mg Vitamin A (Vitamin A & D Oint Ud Foilpak) 0.5 ea TOP Q4 PRN PRN Reason: Lip dryness Last Admin: 03/20/18 22:33 Dose: 0.5 ea - Labs Labs: 03/23/18 06:28 03/23/18 06:20 PT 21.5 SECONDS (9.7-12.2) H 03/22/18 06:30 INR 2.0 03/22/18 06:30 APTT 45 SECONDS (21-34) H D 03/23/18 06:28 - Constitutional Appears: No Acute Distress - Head Exam Head Exam: ATRAUMATIC, NORMOCEPHALIC - Eye Exam Eye Exam: Normal appearance. absent: Conjunctival injection, Scleral icterus - ENT Exam ENT Exam: Mucous Membranes Moist, Normal Oropharynx Additional comments: ETT in place - Respiratory Exam Respiratory Exam: NORMAL BREATHING PATTERN. absent: Accessory Muscle Use, Respiratory Distress Additional comments: on mechanical ventilation - Cardiovascular Exam Cardiovascular Exam: RRR - GI/Abdominal Exam GI & Abdominal Exam: Distended, Firm (RLQ), Tenderness Additional comments: midline incision with dressing intact moderately saturated with serosanguinsou drainage. Prior Whipple incision with right lateral dehiscence draining seropurulent drainage--likely abdominal contents - Extremities Exam Extremities Exam: Pedal Edema. 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 Freitas, who agrees with above Mila Thompson, PGY2
--- NOTE | 2018-03-23 08:30 | RAD ---
Date of service: 03/23/2018 HISTORY: on vent COMPARISON: 03/22/2018 FINDINGS: LUNGS: Technically limited due to underpenetration. Opacity at both lung bases which may be due to dependent pleural fluid and/or rafael alveolar infiltrate. PLEURA: Small bilateral pleural effusion. No pneumothorax. CARDIOVASCULAR: ETT, NG tube and right IJ central venous catheter are unchanged. Normal cardiac size. No pulmonary vascular congestion. OSSEOUS STRUCTURES: No significant abnormalities. VISUALIZED UPPER ABDOMEN: Normal. OTHER FINDINGS: None. IMPRESSION: Bilateral small pleural effusion. Cannot rule out infiltrate at lung bases due to superimposed density of pleural effusions. Lines and tubes unchanged.
[2018-03-23] MEDS: Levothyroxine 200 mcg (0.2 mg) Inj IVP SCH (10:35)
[2018-03-23 12:10] LABS: BANDS 14 % (0-2); EOSINOPHIL 1 % (0-4); LYMPHOCYTE 25 % (20-40); METAMYELOCYTE 2 % (0-0); MONOCYTE 5 % (0-10); MYELOCYTE 2 % (0-0); NEUTROPHIL 51 % (50-75); NUCLEATED RED BLOOD CELL 3 % (0-0); TOTAL CELLS COUNTED 100
[2018-03-23 12:11] LABS: ANISOCYTOSIS SLIGHT; PLATELET ESTIMATE NORMAL (NORMAL); POIKILOCYTOSIS SLIGHT
[2018-03-23 12:12] LABS: HYPOCHROMIC SLIGHT; OVALOCYTES SLIGHT; POLYCHROMIC SLIGHT; STOMATOCYTES SLIGHT
[2018-03-23 12:13] LABS: LARGE PLATELETS PRESENT
--- NOTE | 2018-03-23 13:37 | CP.PCM.PN ---
Subjective - Date & Time of Evaluation Date of Evaluation: 03/23/18 Time of Evaluation: 13:31 - Subjective Subjective: No over night events, surgery team spoken to the family no viable small intestine, grave prognosis. D/w son who was agreeable for DNR, awaiting daughter who will arrive tomorrow to see her. Family understands grave prognosis and considering comfort measures after daughter arrives. Objective - Vital Signs/Intake and Output Vital Signs (last 24 hours): Temp Pulse Resp BP Pulse Ox 98.2 F 79 29 H 123/54 L 95 03/23/18 12:00 03/23/18 12:00 03/23/18 12:00 03/23/18 12:00 03/23/18 12:00 Intake and Output: 03/23/18 03/23/18 06:59 18:59 Intake Total 1782.3 730.4 Output Total 715 145 Balance 1067.3 585.4 - Medications Medications: Current Medications Albumin Human (Albumin Human 25% (12.5 Gm/50 Ml)) 25 gm IV Q6H [facility] Last Admin: 03/23/18 10:29 Dose: 25 gm Albuterol/Ipratropium (Duoneb 3 Mg/0.5 Mg (3 Ml) Ud) 3 ml INH RQ6 [facility] Last Admin: 03/23/18 13:00 Dose: 3 ml Artificial Tears (Artificial Tears) 0.05 ml OU Q4H [facility] Last Admin: 03/23/18 10:33 Dose: 1 drop Dextrose (Dextrose 50% Inj) 0 ml IV STAT PRN; Protocol PRN Reason: Hypoglycemia Protocol Last Admin: 03/11/18 00:13 Dose: 50 ml Dextrose (Glutose 15) 0 gm PO ONCE PRN; Protocol PRN Reason: Hypoglycemia Protocol Furosemide (Lasix) 40 mg IVP DAILY [facility] Last Admin: 03/23/18 10:28 Dose: 40 mg Glucagon (Glucagen Diagnostic Kit) 0 mg IM STAT PRN; Protocol PRN Reason: Hypoglycemia Protocol Hydromorphone HCl (Dilaudid) 0.5 mg IVP Q3 PRN PRN Reason: Pain, severe (8-10) Last Admin: 03/21/18 08:37 Dose: 0.5 mg Meropenem 500 mg/ Sodium (Chloride) 100 mls @ 100 mls/hr IVPB Q8H [facility]; Protocol Last Admin: 03/23/18 09:00 Dose: 100 mls/hr Metronidazole (Flagyl) 500 mg in 100 mls @ 100 mls/hr IVPB Q8H [facility]; Protocol Last Admin: 03/23/18 06:03 Dose: 100 mls/hr Heparin Sodium/Sodium Chloride (Heparin 31758 Units/250ml 1/2 Normal Saline) 25,000 units in 250 mls @ 9.4 mls/hr IV .Q24H PRN; Protocol PRN Reason: PROTOCOL Last Titration: 03/22/18 20:30 Dose: 8.8 units/kg/hr, 9.4 mls/hr Multivitamins/Vitamin C 10 ml/Chromium/Copper/Manganese/Zinc 1 ml/ Amino Acids/Electrolytes/Dextrose 1,011 mls @ 42 mls/hr IV .Q24H ONE Stop: 03/23/18 17:59 Last Admin: 03/22/18 17:31 Dose: 42 mls/hr Fentanyl Citrate 2,500 mcg/ (Sodium Chloride) 250 mls @ 20.82 mls/hr IV .Q12H1M [facility]; Protocol Last Titration: 03/23/18 10:00 Dose: 1.5 mcg/kg/hr, 15.62 mls/hr Dexmedetomidine HCl 200 mcg/ (Sodium Chloride) 50 mls @ 5.21 mls/hr IV TITR PRN; Protocol PRN Reason: Pain, Mild (1-3) Last Titration: 03/23/18 08:00 Dose: 0.05 mcg/kg/hr, 1.3 mls/hr Multivitamins/Vitamin C 10 ml/Insulin Human Regular 10 unit / Amino Acids/Electrolytes/Dextrose 1,010.1 mls @ 42 mls/hr IV .Q24H ONE Stop: 03/24/18 17:59 Insulin Aspart (Novolog) 0 unit SC Q6 [facility]; Protocol Last Admin: 03/23/18 13:05 Dose: 2 units Levothyroxine Sodium (Levothyroxine) 75 mcg IVP DAILY [facility] Last Admin: 03/23/18 10:35 Dose: 75 mcg Pantoprazole Sodium (Protonix Inj) 40 mg IVP Q12H [facility] Last Admin: 03/23/18 04:30 Dose: 40 mg Vitamin A (Vitamin A & D Oint Ud Foilpak) 0.5 ea TOP Q4 PRN PRN Reason: Lip dryness Last Admin: 03/20/18 22:33 Dose: 0.5 ea - Labs Labs: 03/23/18 06:28 03/23/18 06:20 PT 21.5 SECONDS (9.7-12.2) H 03/22/18 06:30 INR 2.0 03/22/18 06:30 APTT 45 SECONDS (21-34) H D 03/23/18 06:28 - Additional Findings Additional findings: * HEENT ZAKIA * Neck Supple * Chest clear b/l * CVS regular * PA dressing had serrosanguinous collection form the abd, distended, anasarca, tender lower abd * Ext edematous * [employer]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
--- NOTE | 2018-03-23 17:50 | CP.PCM.PN ---
Subjective - Date & Time of Evaluation Date of Evaluation: 03/23/18 Time of Evaluation: 13:15 - Subjective Subjective: clinically same Objective - Vital Signs/Intake and Output Vital Signs (last 24 hours): Temp Pulse Resp BP Pulse Ox 98.9 F 85 27 H 125/50 L 96 03/23/18 16:00 03/23/18 17:00 03/23/18 17:00 03/23/18 17:00 03/23/18 17:00 Intake and Output: 03/23/18 03/23/18 06:59 18:59 Intake Total 1782.3 1271.4 Output Total 715 555 Balance 1067.3 716.4 - Medications Medications: Current Medications Albumin Human (Albumin Human 25% (12.5 Gm/50 Ml)) 25 gm IV Q6H [facility] Last Admin: 03/23/18 16:37 Dose: 25 gm Albuterol/Ipratropium (Duoneb 3 Mg/0.5 Mg (3 Ml) Ud) 3 ml INH RQ6 [facility] Last Admin: 03/23/18 13:00 Dose: 3 ml Artificial Tears (Artificial Tears) 0.05 ml OU Q4H [facility] Last Admin: 03/23/18 17:35 Dose: 1 drop Dextrose (Dextrose 50% Inj) 0 ml IV STAT PRN; Protocol PRN Reason: Hypoglycemia Protocol Last Admin: 03/11/18 00:13 Dose: 50 ml Dextrose (Glutose 15) 0 gm PO ONCE PRN; Protocol PRN Reason: Hypoglycemia Protocol Furosemide (Lasix) 40 mg IVP DAILY [facility] Last Admin: 03/23/18 10:28 Dose: 40 mg Glucagon (Glucagen Diagnostic Kit) 0 mg IM STAT PRN; Protocol PRN Reason: Hypoglycemia Protocol Hydromorphone HCl (Dilaudid) 0.5 mg IVP Q3 PRN PRN Reason: Pain, severe (8-10) Last Admin: 03/21/18 08:37 Dose: 0.5 mg Meropenem 500 mg/ Sodium (Chloride) 100 mls @ 100 mls/hr IVPB Q8H [facility]; Protocol Last Admin: 03/23/18 17:00 Dose: 100 mls/hr Metronidazole (Flagyl) 500 mg in 100 mls @ 100 mls/hr IVPB Q8H [facility]; Protocol Last Admin: 03/23/18 14:52 Dose: 100 mls/hr Heparin Sodium/Sodium Chloride (Heparin 46400 Units/250ml 1/2 Normal Saline) 25,000 units in 250 mls @ 9.4 mls/hr IV .Q24H PRN; Protocol PRN Reason: PROTOCOL Last Titration: 03/22/18 20:30 Dose: 8.8 units/kg/hr, 9.4 mls/hr Multivitamins/Vitamin C 10 ml/Chromium/Copper/Manganese/Zinc 1 ml/ Amino Acids/Electrolytes/Dextrose 1,011 mls @ 42 mls/hr IV .Q24H ONE Stop: 03/23/18 17:59 Last Admin: 03/22/18 17:31 Dose: 42 mls/hr Fentanyl Citrate 2,500 mcg/ (Sodium Chloride) 250 mls @ 20.82 mls/hr IV .Q12H1M [facility]; Protocol Last Titration: 03/23/18 10:00 Dose: 1.5 mcg/kg/hr, 15.62 mls/hr Dexmedetomidine HCl 200 mcg/ (Sodium Chloride) 50 mls @ 5.21 mls/hr IV TITR PRN; Protocol PRN Reason: Pain, Mild (1-3) Last Titration: 03/23/18 08:00 Dose: 0.05 mcg/kg/hr, 1.3 mls/hr Multivitamins/Vitamin C 10 ml/Insulin Human Regular 10 unit / Amino Acids/Electrolytes/Dextrose 1,010.1 mls @ 42 mls/hr IV .Q24H ONE Stop: 03/24/18 17:59 Insulin Aspart (Novolog) 0 unit SC Q6 [facility]; Protocol Last Admin: 03/23/18 13:05 Dose: 2 units Levothyroxine Sodium (Levothyroxine) 75 mcg IVP DAILY [facility] Last Admin: 03/23/18 10:35 Dose: 75 mcg Pantoprazole Sodium (Protonix Inj) 40 mg IVP Q12H [facility] Last Admin: 03/23/18 16:38 Dose: 40 mg Vitamin A (Vitamin A & D Oint Ud Foilpak) 0.5 ea TOP Q4 PRN PRN Reason: Lip dryness Last Admin: 03/20/18 22:33 Dose: 0.5 ea - Labs Labs: 03/23/18 06:28 03/23/18 06:20 PT 21.5 SECONDS (9.7-12.2) H 03/22/18 06:30 INR 2.0 03/22/18 06:30 APTT 45 SECONDS (21-34) H D 03/23/18 06:28 - Constitutional Appears: Well - Head Exam Head Exam: ATRAUMATIC, NORMAL INSPECTION, NORMOCEPHALIC - Eye Exam Eye Exam: EOMI, Normal appearance, PERRL Pupil Exam: NORMAL ACCOMODATION, PERRL - ENT Exam ENT Exam: Mucous Membranes Moist, Normal Exam - Neck Exam Neck Exam: Full ROM, Normal Inspection. absent: Lymphadenopathy - Respiratory Exam Respiratory Exam: Decreased Breath Sounds - Cardiovascular Exam Cardiovascular Exam: REGULAR RHYTHM, +S1, +S2 - GI/Abdominal Exam GI & Abdominal Exam: Soft, Diminished Bowel Sounds - Rectal Exam Rectal Exam: Deferred
[2018-03-23] MEDS ORDERED: TPN #12 IV ONE (18:00)
[2018-03-23] MEDS: Heparin25000 units/250ml 1/2NS 25,000 UNITS/250 ML BAG IV PRN (20:07)
--- NOTE | 2018-03-24 00:33 | CP.PCM.PN ---
Subjective - Date & Time of Evaluation Date of Evaluation: 03/19/18 Time of Evaluation: 12:00 - Subjective Subjective: Vented Objective - Vital Signs/Intake and Output Vital Signs (last 24 hours): Temp Pulse Resp BP Pulse Ox 98.9 F 92 H 30 H 135/51 L 96 03/23/18 16:00 03/23/18 19:00 03/23/18 19:00 03/23/18 19:00 03/23/18 19:00 Intake and Output: 03/23/18 03/24/18 18:59 06:59 Intake Total 1436.6 362.9 Output Total 590 40 Balance 846.6 322.9 - Medications Medications: Current Medications Albumin Human (Albumin Human 25% (12.5 Gm/50 Ml)) 25 gm IV Q6H [facility] Last Admin: 03/23/18 21:59 Dose: 25 gm Albuterol/Ipratropium (Duoneb 3 Mg/0.5 Mg (3 Ml) Ud) 3 ml INH RQ6 [facility] Last Admin: 03/23/18 20:19 Dose: 3 ml Artificial Tears (Artificial Tears) 0.05 ml OU Q4H [facility] Last Admin: 03/23/18 22:01 Dose: 1 drop Dextrose (Dextrose 50% Inj) 0 ml IV STAT PRN; Protocol PRN Reason: Hypoglycemia Protocol Last Admin: 03/11/18 00:13 Dose: 50 ml Dextrose (Glutose 15) 0 gm PO ONCE PRN; Protocol PRN Reason: Hypoglycemia Protocol Furosemide (Lasix) 40 mg IVP DAILY [facility] Last Admin: 03/23/18 10:28 Dose: 40 mg Glucagon (Glucagen Diagnostic Kit) 0 mg IM STAT PRN; Protocol PRN Reason: Hypoglycemia Protocol Hydromorphone HCl (Dilaudid) 0.5 mg IVP Q3 PRN PRN Reason: Pain, severe (8-10) Last Admin: 03/21/18 08:37 Dose: 0.5 mg Meropenem 500 mg/ Sodium (Chloride) 100 mls @ 100 mls/hr IVPB Q8H [facility]; Protocol Last Admin: 03/23/18 17:00 Dose: 100 mls/hr Metronidazole (Flagyl) 500 mg in 100 mls @ 100 mls/hr IVPB Q8H [facility]; Protocol Last Admin: 03/23/18 22:02 Dose: 100 mls/hr Heparin Sodium/Sodium Chloride (Heparin 96224 Units/250ml 1/2 Normal Saline) 25,000 units in 250 mls @ 9.4 mls/hr IV .Q24H PRN; Protocol PRN Reason: PROTOCOL Last Admin: 03/23/18 20:07 Dose: 8.8 units/kg/hr, 9.4 mls/hr Fentanyl Citrate 2,500 mcg/ (Sodium Chloride) 250 mls @ 20.82 mls/hr IV .Q12H1M [facility]; Protocol Last Admin: 03/23/18 20:13 Dose: 2 mcg/kg/hr, 20.82 mls/hr Dexmedetomidine HCl 200 mcg/ (Sodium Chloride) 50 mls @ 5.21 mls/hr IV TITR PRN; Protocol PRN Reason: Pain, Mild (1-3) Last Titration: 03/23/18 08:00 Dose: 0.05 mcg/kg/hr, 1.3 mls/hr Multivitamins/Vitamin C 10 ml/Insulin Human Regular 10 unit / Amino Acids/Electrolytes/Dextrose 1,010.1 mls @ 42 mls/hr IV .Q24H ONE Stop: 03/24/18 17:59 Last Admin: 03/23/18 18:11 Dose: 42 mls/hr Insulin Aspart (Novolog) 0 unit SC Q6 [facility]; Protocol Last Admin: 03/23/18 18:08 Dose: 4 units Levothyroxine Sodium (Levothyroxine) 75 mcg IVP DAILY [facility] Last Admin: 03/23/18 10:35 Dose: 75 mcg Pantoprazole Sodium (Protonix Inj) 40 mg IVP Q12H [facility] Last Admin: 03/23/18 16:38 Dose: 40 mg Vitamin A (Vitamin A & D Oint Ud Foilpak) 0.5 ea TOP Q4 PRN PRN Reason: Lip dryness Last Admin: 03/20/18 22:33 Dose: 0.5 ea - Labs Labs: 03/23/18 06:28 03/23/18 06:20 PT 21.5 SECONDS (9.7-12.2) H 03/22/18 06:30 INR 2.0 03/22/18 06:30 APTT 45 SECONDS (21-34) H D 03/23/18 06:28 - Head Exam Head Exam: ATRAUMATIC - Eye Exam Eye Exam: Normal appearance - ENT Exam ENT Exam: Mucous Membranes Dry - Respiratory Exam Respiratory Exam: NORMAL BREATHING PATTERN - Cardiovascular Exam Cardiovascular Exam: +S1, +S2 - GI/Abdominal Exam GI & Abdominal Exam: Normal Bowel Sounds Assessment and Plan (1) Anemia Assessment & Plan: chronic disease transfusion support PRN Status: Acute (2) Coagulopathy Assessment & Plan: nutritional, anticoagulation Status: Acute (3) History of cholangiocarcinoma Assessment & Plan: s/p whipple procedure at [facility] Status: Acute
--- NOTE | 2018-03-24 00:37 | CP.PCM.PN ---
Subjective - Date & Time of Evaluation Date of Evaluation: 03/21/18 Time of Evaluation: 15:00 - Subjective Subjective: Vented Objective - Vital Signs/Intake and Output Vital Signs (last 24 hours): Temp Pulse Resp BP Pulse Ox 98.9 F 92 H 30 H 135/51 L 96 03/23/18 16:00 03/23/18 19:00 03/23/18 19:00 03/23/18 19:00 03/23/18 19:00 Intake and Output: 03/23/18 03/24/18 18:59 06:59 Intake Total 1436.6 362.9 Output Total 590 40 Balance 846.6 322.9 - Medications Medications: Current Medications Albumin Human (Albumin Human 25% (12.5 Gm/50 Ml)) 25 gm IV Q6H [facility] Last Admin: 03/23/18 21:59 Dose: 25 gm Albuterol/Ipratropium (Duoneb 3 Mg/0.5 Mg (3 Ml) Ud) 3 ml INH RQ6 [facility] Last Admin: 03/23/18 20:19 Dose: 3 ml Artificial Tears (Artificial Tears) 0.05 ml OU Q4H [facility] Last Admin: 03/23/18 22:01 Dose: 1 drop Dextrose (Dextrose 50% Inj) 0 ml IV STAT PRN; Protocol PRN Reason: Hypoglycemia Protocol Last Admin: 03/11/18 00:13 Dose: 50 ml Dextrose (Glutose 15) 0 gm PO ONCE PRN; Protocol PRN Reason: Hypoglycemia Protocol Furosemide (Lasix) 40 mg IVP DAILY [facility] Last Admin: 03/23/18 10:28 Dose: 40 mg Glucagon (Glucagen Diagnostic Kit) 0 mg IM STAT PRN; Protocol PRN Reason: Hypoglycemia Protocol Hydromorphone HCl (Dilaudid) 0.5 mg IVP Q3 PRN PRN Reason: Pain, severe (8-10) Last Admin: 03/21/18 08:37 Dose: 0.5 mg Meropenem 500 mg/ Sodium (Chloride) 100 mls @ 100 mls/hr IVPB Q8H [facility]; Protocol Last Admin: 03/23/18 17:00 Dose: 100 mls/hr Metronidazole (Flagyl) 500 mg in 100 mls @ 100 mls/hr IVPB Q8H [facility]; Protocol Last Admin: 03/23/18 22:02 Dose: 100 mls/hr Heparin Sodium/Sodium Chloride (Heparin 14104 Units/250ml 1/2 Normal Saline) 25,000 units in 250 mls @ 9.4 mls/hr IV .Q24H PRN; Protocol PRN Reason: PROTOCOL Last Admin: 03/23/18 20:07 Dose: 8.8 units/kg/hr, 9.4 mls/hr Fentanyl Citrate 2,500 mcg/ (Sodium Chloride) 250 mls @ 20.82 mls/hr IV .Q12H1M [facility]; Protocol Last Admin: 03/23/18 20:13 Dose: 2 mcg/kg/hr, 20.82 mls/hr Dexmedetomidine HCl 200 mcg/ (Sodium Chloride) 50 mls @ 5.21 mls/hr IV TITR PRN; Protocol PRN Reason: Pain, Mild (1-3) Last Titration: 03/23/18 08:00 Dose: 0.05 mcg/kg/hr, 1.3 mls/hr Multivitamins/Vitamin C 10 ml/Insulin Human Regular 10 unit / Amino Acids/Electrolytes/Dextrose 1,010.1 mls @ 42 mls/hr IV .Q24H ONE Stop: 03/24/18 17:59 Last Admin: 03/23/18 18:11 Dose: 42 mls/hr Insulin Aspart (Novolog) 0 unit SC Q6 [facility]; Protocol Last Admin: 03/23/18 18:08 Dose: 4 units Levothyroxine Sodium (Levothyroxine) 75 mcg IVP DAILY [facility] Last Admin: 03/23/18 10:35 Dose: 75 mcg Pantoprazole Sodium (Protonix Inj) 40 mg IVP Q12H [facility] Last Admin: 03/23/18 16:38 Dose: 40 mg Vitamin A (Vitamin A & D Oint Ud Foilpak) 0.5 ea TOP Q4 PRN PRN Reason: Lip dryness Last Admin: 03/20/18 22:33 Dose: 0.5 ea - Labs Labs: 03/23/18 06:28 03/23/18 06:20 PT 21.5 SECONDS (9.7-12.2) H 03/22/18 06:30 INR 2.0 03/22/18 06:30 APTT 45 SECONDS (21-34) H D 03/23/18 06:28 - Head Exam Head Exam: ATRAUMATIC - Eye Exam Eye Exam: Normal appearance - ENT Exam ENT Exam: Mucous Membranes Dry - Respiratory Exam Respiratory Exam: NORMAL BREATHING PATTERN - Cardiovascular Exam Cardiovascular Exam: +S1, +S2 - GI/Abdominal Exam GI & Abdominal Exam: Normal Bowel Sounds Assessment and Plan (1) Anemia Assessment & Plan: anemia of chronic disease transfusion support PRN Status: Acute (2) Coagulopathy Assessment & Plan: nutritional and anticoagulation Status: Acute (3) History of cholangiocarcinoma Assessment & Plan: s/p whipple procedure at [facility] Status: Acute
--- NOTE | 2018-03-24 00:38 | CP.PCM.PN ---
Subjective - Date & Time of Evaluation Date of Evaluation: 03/22/18 Time of Evaluation: 12:00 - Subjective Subjective: Vented, for OR Objective - Vital Signs/Intake and Output Vital Signs (last 24 hours): Temp Pulse Resp BP Pulse Ox 98.9 F 92 H 30 H 135/51 L 96 03/23/18 16:00 03/23/18 19:00 03/23/18 19:00 03/23/18 19:00 03/23/18 19:00 Intake and Output: 03/23/18 03/24/18 18:59 06:59 Intake Total 1436.6 362.9 Output Total 590 40 Balance 846.6 322.9 - Medications Medications: Current Medications Albumin Human (Albumin Human 25% (12.5 Gm/50 Ml)) 25 gm IV Q6H [facility] Last Admin: 03/23/18 21:59 Dose: 25 gm Albuterol/Ipratropium (Duoneb 3 Mg/0.5 Mg (3 Ml) Ud) 3 ml INH RQ6 [facility] Last Admin: 03/23/18 20:19 Dose: 3 ml Artificial Tears (Artificial Tears) 0.05 ml OU Q4H [facility] Last Admin: 03/23/18 22:01 Dose: 1 drop Dextrose (Dextrose 50% Inj) 0 ml IV STAT PRN; Protocol PRN Reason: Hypoglycemia Protocol Last Admin: 03/11/18 00:13 Dose: 50 ml Dextrose (Glutose 15) 0 gm PO ONCE PRN; Protocol PRN Reason: Hypoglycemia Protocol Furosemide (Lasix) 40 mg IVP DAILY [facility] Last Admin: 03/23/18 10:28 Dose: 40 mg Glucagon (Glucagen Diagnostic Kit) 0 mg IM STAT PRN; Protocol PRN Reason: Hypoglycemia Protocol Hydromorphone HCl (Dilaudid) 0.5 mg IVP Q3 PRN PRN Reason: Pain, severe (8-10) Last Admin: 03/21/18 08:37 Dose: 0.5 mg Meropenem 500 mg/ Sodium (Chloride) 100 mls @ 100 mls/hr IVPB Q8H [facility]; Protocol Last Admin: 03/23/18 17:00 Dose: 100 mls/hr Metronidazole (Flagyl) 500 mg in 100 mls @ 100 mls/hr IVPB Q8H [facility]; Protocol Last Admin: 03/23/18 22:02 Dose: 100 mls/hr Heparin Sodium/Sodium Chloride (Heparin 00733 Units/250ml 1/2 Normal Saline) 25,000 units in 250 mls @ 9.4 mls/hr IV .Q24H PRN; Protocol PRN Reason: PROTOCOL Last Admin: 03/23/18 20:07 Dose: 8.8 units/kg/hr, 9.4 mls/hr Fentanyl Citrate 2,500 mcg/ (Sodium Chloride) 250 mls @ 20.82 mls/hr IV .Q12H1M [facility]; Protocol Last Admin: 03/23/18 20:13 Dose: 2 mcg/kg/hr, 20.82 mls/hr Dexmedetomidine HCl 200 mcg/ (Sodium Chloride) 50 mls @ 5.21 mls/hr IV TITR PRN; Protocol PRN Reason: Pain, Mild (1-3) Last Titration: 03/23/18 08:00 Dose: 0.05 mcg/kg/hr, 1.3 mls/hr Multivitamins/Vitamin C 10 ml/Insulin Human Regular 10 unit / Amino Acids/Electrolytes/Dextrose 1,010.1 mls @ 42 mls/hr IV .Q24H ONE Stop: 03/24/18 17:59 Last Admin: 03/23/18 18:11 Dose: 42 mls/hr Insulin Aspart (Novolog) 0 unit SC Q6 [facility]; Protocol Last Admin: 03/23/18 18:08 Dose: 4 units Levothyroxine Sodium (Levothyroxine) 75 mcg IVP DAILY [facility] Last Admin: 03/23/18 10:35 Dose: 75 mcg Pantoprazole Sodium (Protonix Inj) 40 mg IVP Q12H [facility] Last Admin: 03/23/18 16:38 Dose: 40 mg Vitamin A (Vitamin A & D Oint Ud Foilpak) 0.5 ea TOP Q4 PRN PRN Reason: Lip dryness Last Admin: 03/20/18 22:33 Dose: 0.5 ea - Labs Labs: 03/23/18 06:28 03/23/18 06:20 PT 21.5 SECONDS (9.7-12.2) H 03/22/18 06:30 INR 2.0 03/22/18 06:30 APTT 45 SECONDS (21-34) H D 03/23/18 06:28 - Head Exam Head Exam: ATRAUMATIC - Eye Exam Eye Exam: Normal appearance - ENT Exam ENT Exam: Mucous Membranes Dry - Respiratory Exam Respiratory Exam: NORMAL BREATHING PATTERN - Cardiovascular Exam Cardiovascular Exam: +S1, +S2 - GI/Abdominal Exam GI & Abdominal Exam: Normal Bowel Sounds Assessment and Plan (1) Anemia Assessment & Plan: anemia of chronic disease transfusion support PRN Status: Acute (2) Coagulopathy Assessment & Plan: nutritional and anticoagulation Status: Acute (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
--- NOTE | 2018-03-24 00:39 | CP.PCM.PN ---
Subjective - Date & Time of Evaluation Date of Evaluation: 03/23/18 Time of Evaluation: 13:00 - Subjective Subjective: Vented Objective - Vital Signs/Intake and Output Vital Signs (last 24 hours): Temp Pulse Resp BP Pulse Ox 98.9 F 92 H 30 H 135/51 L 96 03/23/18 16:00 03/23/18 19:00 03/23/18 19:00 03/23/18 19:00 03/23/18 19:00 Intake and Output: 03/23/18 03/24/18 18:59 06:59 Intake Total 1436.6 362.9 Output Total 590 40 Balance 846.6 322.9 - Medications Medications: Current Medications Albumin Human (Albumin Human 25% (12.5 Gm/50 Ml)) 25 gm IV Q6H [facility] Last Admin: 03/23/18 21:59 Dose: 25 gm Albuterol/Ipratropium (Duoneb 3 Mg/0.5 Mg (3 Ml) Ud) 3 ml INH RQ6 [facility] Last Admin: 03/23/18 20:19 Dose: 3 ml Artificial Tears (Artificial Tears) 0.05 ml OU Q4H [facility] Last Admin: 03/23/18 22:01 Dose: 1 drop Dextrose (Dextrose 50% Inj) 0 ml IV STAT PRN; Protocol PRN Reason: Hypoglycemia Protocol Last Admin: 03/11/18 00:13 Dose: 50 ml Dextrose (Glutose 15) 0 gm PO ONCE PRN; Protocol PRN Reason: Hypoglycemia Protocol Furosemide (Lasix) 40 mg IVP DAILY [facility] Last Admin: 03/23/18 10:28 Dose: 40 mg Glucagon (Glucagen Diagnostic Kit) 0 mg IM STAT PRN; Protocol PRN Reason: Hypoglycemia Protocol Hydromorphone HCl (Dilaudid) 0.5 mg IVP Q3 PRN PRN Reason: Pain, severe (8-10) Last Admin: 03/21/18 08:37 Dose: 0.5 mg Meropenem 500 mg/ Sodium (Chloride) 100 mls @ 100 mls/hr IVPB Q8H [facility]; Protocol Last Admin: 03/23/18 17:00 Dose: 100 mls/hr Metronidazole (Flagyl) 500 mg in 100 mls @ 100 mls/hr IVPB Q8H [facility]; Protocol Last Admin: 03/23/18 22:02 Dose: 100 mls/hr Heparin Sodium/Sodium Chloride (Heparin 23181 Units/250ml 1/2 Normal Saline) 25,000 units in 250 mls @ 9.4 mls/hr IV .Q24H PRN; Protocol PRN Reason: PROTOCOL Last Admin: 03/23/18 20:07 Dose: 8.8 units/kg/hr, 9.4 mls/hr Fentanyl Citrate 2,500 mcg/ (Sodium Chloride) 250 mls @ 20.82 mls/hr IV .Q12H1M [facility]; Protocol Last Admin: 03/23/18 20:13 Dose: 2 mcg/kg/hr, 20.82 mls/hr Dexmedetomidine HCl 200 mcg/ (Sodium Chloride) 50 mls @ 5.21 mls/hr IV TITR PRN; Protocol PRN Reason: Pain, Mild (1-3) Last Titration: 03/23/18 08:00 Dose: 0.05 mcg/kg/hr, 1.3 mls/hr Multivitamins/Vitamin C 10 ml/Insulin Human Regular 10 unit / Amino Acids/Electrolytes/Dextrose 1,010.1 mls @ 42 mls/hr IV .Q24H ONE Stop: 03/24/18 17:59 Last Admin: 03/23/18 18:11 Dose: 42 mls/hr Insulin Aspart (Novolog) 0 unit SC Q6 [facility]; Protocol Last Admin: 03/23/18 18:08 Dose: 4 units Levothyroxine Sodium (Levothyroxine) 75 mcg IVP DAILY [facility] Last Admin: 03/23/18 10:35 Dose: 75 mcg Pantoprazole Sodium (Protonix Inj) 40 mg IVP Q12H [facility] Last Admin: 03/23/18 16:38 Dose: 40 mg Vitamin A (Vitamin A & D Oint Ud Foilpak) 0.5 ea TOP Q4 PRN PRN Reason: Lip dryness Last Admin: 03/20/18 22:33 Dose: 0.5 ea - Labs Labs: 03/23/18 06:28 03/23/18 06:20 PT 21.5 SECONDS (9.7-12.2) H 03/22/18 06:30 INR 2.0 03/22/18 06:30 APTT 45 SECONDS (21-34) H D 03/23/18 06:28 - Head Exam Head Exam: ATRAUMATIC - Eye Exam Eye Exam: Normal appearance - ENT Exam ENT Exam: Mucous Membranes Dry - Respiratory Exam Respiratory Exam: NORMAL BREATHING PATTERN - Cardiovascular Exam Cardiovascular Exam: +S1, +S2 - GI/Abdominal Exam GI & Abdominal Exam: Normal Bowel Sounds Assessment and Plan (1) Anemia Assessment & Plan: anemia of chronic disease transfusion support PRN Status: Acute (2) Coagulopathy Assessment & Plan: nutritional and anticoagulation Status: Acute (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
[2018-03-24] MEDS: (Novolog) Insulin Aspart, Recombinant 100 u/ml 10 ml vial SC SCH ×4 (00:46→18:40)
[2018-03-24] MEDS: Meropenem 500 MG in Sodium Chloride 0.9% 100 ML IVPB SCH ×2 (00:47→08:24)
[2018-03-24] MEDS: Albuterol-Ipratrop 3 mg / 0.5 (3 ml) UD INH SCH ×4 (01:43→19:45)
[2018-03-24] MEDS: Aritificial Tears (15ml) OU SCH ×6 (01:55→21:16)
[2018-03-24] MEDS: Albumin Human 25% (12.5 gm/50 ml) IV SCH ×4 (03:23→21:15)
[2018-03-24 05:34] LABS: ABG ALLEN TEST POS; ARTERIAL BLOOD GAS HCO3 21.4 mmol/L (21-28); ARTERIAL BLOOD GAS HEMOGLOBIN 6.4 g/dL (11.7-17.4); ARTERIAL BLOOD GAS O2 SAT 100.6 % (95-98); ARTERIAL BLOOD GAS PCO2 29 mm/Hg (35-45); ARTERIAL BLOOD GAS PH 7.43 (7.35-7.45); ARTERIAL BLOOD GAS PO2 72 mm/Hg (80-100); ARTERIAL BLOOD GAS TCO2 20.1 mmol/L (22-28)
[2018-03-24 05:47] LABS: BASO # 0.1 K/uL (0.0-0.2); BASO % 0.7 % (0.0-2.0); EOS # 0.1 K/uL (0.0-0.7); EOS % 0.9 % (0.0-4.0); HEMOGLOBIN 6.9 g/dL (11.0-16.0); LYMPH # 2.2 K/uL (1.0-4.3); LYMPH % 16.5 % (20.0-40.0); MEAN CELL VOLUME 94.1 fL (81.0-99.0); MEAN CORPUSCULAR HEMOGLOBIN 30.6 pg (27.0-31.0); MEAN CORPUSCULAR HGB CONC 32.5 g/dL (33.0-37.0); MEAN PLATELET VOLUME 11.1 fL (7.2-11.7); MONO # 0.7 K/uL (0.0-0.8); MONO % 5.2 % (0.0-10.0); NEUT # 10.2 K/uL (1.8-7.0); NEUT % 76.7 % (50.0-75.0); NRBC % 0.5 % (0.0-2.0); RBC 2.26 Mil/uL (3.80-5.20); RED CELL DISTRIBUTION WIDTH 17.7 % (11.5-14.5); WHITE BLOOD COUNT 13.3 K/uL (4.8-10.8)
[2018-03-24] MEDS: metroNIDAZOLE IV 500 mg/100 ml 500 MG/100 ML BAG IVPB SCH ×3 (06:06→22:12)
[2018-03-24 06:08] LABS: ALB/GLOB RATIO 1.3 (1.0-2.1); ALBUMIN 3.5 g/dL (3.5-5.0); ALT/SGPT 38 U/L (9-52); AST/SGOT 97 U/L (14-36); BLOOD UREA NITROGEN 24 mg/dL (7-17); CALCIUM 7.8 mg/dl (8.6-10.4); GFR NON-AFRICAN AMERICAN > 60
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
--- NOTE | 2018-03-24 09:15 | RAD ---
Date of service: 03/24/2018 HISTORY: intubated COMPARISON: 03/23/2018 FINDINGS: LUNGS: Persistent bibasilar opacity unchanged. Mild left perihilar opacity in addition to previously described bibasilar opacities. PLEURA: Small bilateral pleural effusion. No pneumothorax. CARDIOVASCULAR: There is atherosclerotic calcification of the aortic arch. Normal cardiac size. ET tube, NG tube and right IJ central venous catheter are unchanged. OSSEOUS STRUCTURES: No significant abnormalities. VISUALIZED UPPER ABDOMEN: Normal. OTHER FINDINGS: None. IMPRESSION: Bibasilar and left perihilar opacities. Bilateral pneumonia versus pulmonary edema. Small bilateral pleural effusion. Lines and tubes unchanged.
[2018-03-24] MEDS: Dexmedetomidine Hydrochloride 200 MCG in Sodium Chloride 0.9% 48 ML IV PRN (09:44)
[2018-03-24] MEDS: Levothyroxine 200 mcg (0.2 mg) Inj IVP SCH (09:44)
--- NOTE | 2018-03-24 11:10 | CP.PCM.PN ---
Subjective - Date & Time of Evaluation Date of Evaluation: 03/24/18 Time of Evaluation: 06:40 - Subjective Subjective: Surgery progress note for Dr. Freitas Pt seen and examined in the ICU this AM. Patient still on IV pain medications but becomes more alert and anxious. Spoke with family who are going to discuss end of life decisions with palliative care nurse tomorrow Objective - Vital Signs/Intake and Output Vital Signs (last 24 hours): Temp Pulse Resp BP Pulse Ox 99.5 F 99 H 27 H 126/43 L 96 03/24/18 11:04 03/24/18 07:00 03/24/18 07:00 03/24/18 09:32 03/24/18 07:00 Intake and Output: 03/24/18 03/24/18 06:59 18:59 Intake Total 1671.4 369.5 Output Total 530 Balance 1141.4 369.5 - Medications Medications: Current Medications Acetaminophen (Tylenol 650mg/20.3ml Solution Ud) 650 mg PO ONCE ONE Stop: 03/24/18 11:16 Last Admin: 03/24/18 11:04 Dose: 650 mg Albumin Human (Albumin Human 25% (12.5 Gm/50 Ml)) 25 gm IV Q6H [facility] Last Admin: 03/24/18 09:44 Dose: 25 gm Albuterol/Ipratropium (Duoneb 3 Mg/0.5 Mg (3 Ml) Ud) 3 ml INH RQ6 [facility] Last Admin: 03/24/18 01:43 Dose: 3 ml Artificial Tears (Artificial Tears) 0.05 ml OU Q4H [facility] Last Admin: 03/24/18 09:45 Dose: 1 drop Dextrose (Dextrose 50% Inj) 0 ml IV STAT PRN; Protocol PRN Reason: Hypoglycemia Protocol Last Admin: 03/11/18 00:13 Dose: 50 ml Dextrose (Glutose 15) 0 gm PO ONCE PRN; Protocol PRN Reason: Hypoglycemia Protocol Furosemide (Lasix) 40 mg IVP DAILY [facility] Last Admin: 03/24/18 09:32 Dose: 40 mg Glucagon (Glucagen Diagnostic Kit) 0 mg IM STAT PRN; Protocol PRN Reason: Hypoglycemia Protocol Hydromorphone HCl (Dilaudid) 0.5 mg IVP Q3 PRN PRN Reason: Pain, severe (8-10) Last Admin: 03/21/18 08:37 Dose: 0.5 mg Meropenem 500 mg/ Sodium (Chloride) 100 mls @ 100 mls/hr IVPB Q8H [facility]; Protocol Last Admin: 03/24/18 08:24 Dose: 100 mls/hr Metronidazole (Flagyl) 500 mg in 100 mls @ 100 mls/hr IVPB Q8H [facility]; Protocol Last Admin: 03/24/18 06:06 Dose: 100 mls/hr Heparin Sodium/Sodium Chloride (Heparin 42178 Units/250ml 1/2 Normal Saline) 25,000 units in 250 mls @ 9.4 mls/hr IV .Q24H PRN; Protocol PRN Reason: PROTOCOL Last Admin: 03/23/18 20:07 Dose: 8.8 units/kg/hr, 9.4 mls/hr Fentanyl Citrate 2,500 mcg/ (Sodium Chloride) 250 mls @ 20.82 mls/hr IV .Q12H1M [facility]; Protocol Last Admin: 03/24/18 07:45 Dose: 2 mcg/kg/hr, 20.82 mls/hr Dexmedetomidine HCl 200 mcg/ (Sodium Chloride) 50 mls @ 5.21 mls/hr IV TITR PRN; Protocol PRN Reason: Pain, Mild (1-3) Last Admin: 03/24/18 09:44 Dose: 0.05 mcg/kg/hr, 1.3 mls/hr Multivitamins/Vitamin C 10 ml/Insulin Human Regular 10 unit / Amino Acids/Electrolytes/Dextrose 1,010.1 mls @ 42 mls/hr IV .Q24H ONE Stop: 03/24/18 17:59 Last Admin: 03/23/18 18:11 Dose: 42 mls/hr Insulin Aspart (Novolog) 0 unit SC Q6 [facility]; Protocol Last Admin: 03/24/18 06:06 Dose: 4 units Levothyroxine Sodium (Levothyroxine) 75 mcg IVP DAILY [facility] Last Admin: 03/24/18 09:44 Dose: 75 mcg Pantoprazole Sodium (Protonix Inj) 40 mg IVP Q12H [facility] Last Admin: 03/24/18 04:15 Dose: 40 mg Vitamin A (Vitamin A & D Oint Ud Foilpak) 0.5 ea TOP Q4 PRN PRN Reason: Lip dryness Last Admin: 03/20/18 22:33 Dose: 0.5 ea - Labs Labs: 03/24/18 05:37 03/24/18 05:37 PT 21.5 SECONDS (9.7-12.2) H 03/22/18 06:30 INR 2.0 03/22/18 06:30 APTT 66 SECONDS (21-34) H D 03/24/18 05:37 - Constitutional Appears: No Acute Distress, Confused - Head Exam Head Exam: ATRAUMATIC, NORMOCEPHALIC - Eye Exam Eye Exam: Normal appearance - ENT Exam Additional comments: ETT in place - Respiratory Exam Respiratory Exam: absent: Accessory Muscle Use, Respiratory Distress Additional comments: mechanically ventilated - GI/Abdominal Exam GI & Abdominal Exam: Distended (severely), Firm, Tenderness - Extremities Exam Extremities Exam: Pedal Edema. 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 Freitas, who agrees with above Mila Thompson, PGY2
[2018-03-24] MEDS ORDERED: TPN #12 IV ONE (11:15)
[2018-03-24] MEDS ORDERED: Acetaminophen 650mg/20.3ml solution UD PO ONE (11:15)
--- NOTE | 2018-03-24 15:14 | CP.PCM.PN ---
Subjective - Date & Time of Evaluation Date of Evaluation: 03/24/18 Time of Evaluation: 03:00 - Subjective Subjective: dictated Objective - Vital Signs/Intake and Output Vital Signs (last 24 hours): Temp Pulse Resp BP Pulse Ox 98.9 F 96 H 22 153/63 H 96 03/24/18 14:00 03/24/18 14:01 03/24/18 14:01 03/24/18 14:01 03/24/18 14:01 Intake and Output: 03/24/18 03/24/18 06:59 18:59 Intake Total 1671.4 1034.0 Output Total 530 Balance 1141.4 1034.0 - Medications Medications: Current Medications Albumin Human (Albumin Human 25% (12.5 Gm/50 Ml)) 25 gm IV Q6H [facility] Last Admin: 03/24/18 09:44 Dose: 25 gm Albuterol/Ipratropium (Duoneb 3 Mg/0.5 Mg (3 Ml) Ud) 3 ml INH RQ6 [facility] Last Admin: 03/24/18 13:35 Dose: 3 ml Artificial Tears (Artificial Tears) 0.05 ml OU Q4H [facility] Last Admin: 03/24/18 14:26 Dose: 1 drop Dextrose (Dextrose 50% Inj) 0 ml IV STAT PRN; Protocol PRN Reason: Hypoglycemia Protocol Last Admin: 03/11/18 00:13 Dose: 50 ml Dextrose (Glutose 15) 0 gm PO ONCE PRN; Protocol PRN Reason: Hypoglycemia Protocol Furosemide (Lasix) 40 mg IVP DAILY [facility] Last Admin: 03/24/18 09:32 Dose: 40 mg Glucagon (Glucagen Diagnostic Kit) 0 mg IM STAT PRN; Protocol PRN Reason: Hypoglycemia Protocol Hydromorphone HCl (Dilaudid) 0.5 mg IVP Q3 PRN PRN Reason: Pain, severe (8-10) Last Admin: 03/21/18 08:37 Dose: 0.5 mg Metronidazole (Flagyl) 500 mg in 100 mls @ 100 mls/hr IVPB Q8H [facility]; Protocol Last Admin: 03/24/18 14:25 Dose: 100 mls/hr Heparin Sodium/Sodium Chloride (Heparin 34658 Units/250ml 1/2 Normal Saline) 25,000 units in 250 mls @ 9.4 mls/hr IV .Q24H PRN; Protocol PRN Reason: PROTOCOL Last Admin: 03/23/18 20:07 Dose: 8.8 units/kg/hr, 9.4 mls/hr Fentanyl Citrate 2,500 mcg/ (Sodium Chloride) 250 mls @ 20.82 mls/hr IV .Q12H1M [facility]; Protocol Last Admin: 03/24/18 07:45 Dose: 2 mcg/kg/hr, 20.82 mls/hr Dexmedetomidine HCl 200 mcg/ (Sodium Chloride) 50 mls @ 5.21 mls/hr IV TITR PRN; Protocol PRN Reason: Pain, Mild (1-3) Last Admin: 03/24/18 09:44 Dose: 0.05 mcg/kg/hr, 1.3 mls/hr Multivitamins/Vitamin C 10 ml/Insulin Human Regular 10 unit / Amino Acids/Electrolytes/Dextrose 1,010.1 mls @ 42 mls/hr IV .Q24H ONE Stop: 03/24/18 17:59 Last Admin: 03/23/18 18:11 Dose: 42 mls/hr Multivitamins/Vitamin C 10 ml/Insulin Human Regular 10 unit / C hromium/Copper/Manganese/Zinc 1 ml/ Parenteral Electrolytes 20 ml/ Amino Acids 1,031.1 mls @ 42 mls/hr IV .Q24H ONE Stop: 03/25/18 17:59 Ceftazidime/Avibactam 2.5 gm/ (Sodium Chloride) 100 mls @ 50 mls/hr IV Q8H [facility]; Protocol Insulin Aspart (Novolog) 0 unit SC Q6 [facility]; Protocol Last Admin: 03/24/18 11:31 Dose: 4 units Levothyroxine Sodium (Levothyroxine) 75 mcg IVP DAILY [facility] Last Admin: 03/24/18 09:44 Dose: 75 mcg Pantoprazole Sodium (Protonix Inj) 40 mg IVP Q12H [facility] Last Admin: 03/24/18 04:15 Dose: 40 mg Vitamin A (Vitamin A & D Oint Ud Foilpak) 0.5 ea TOP Q4 PRN PRN Reason: Lip dryness Last Admin: 03/20/18 22:33 Dose: 0.5 ea - Labs Labs: 03/24/18 05:37 03/24/18 05:37 PT 21.5 SECONDS (9.7-12.2) H 03/22/18 06:30 INR 2.0 03/22/18 06:30 APTT 66 SECONDS (21-34) H D 03/24/18 05:37
[2018-03-24] MEDS ORDERED: TPN #13 IV ONE (18:00)
[2018-03-24] MEDS: Vitamins A & D Oint UD Foilpak TOP PRN (21:29)
[2018-03-24 21:37] LABS: BASO # 0.1 K/uL (0.0-0.2); BASO % 0.7 % (0.0-2.0); EOS # 0.1 K/uL (0.0-0.7); EOS % 0.8 % (0.0-4.0); HEMOGLOBIN 8.5 g/dL (11.0-16.0); LYMPH # 3.9 K/uL (1.0-4.3); LYMPH % 22.1 % (20.0-40.0); MEAN CELL VOLUME 92.3 fL (81.0-99.0); MEAN CORPUSCULAR HEMOGLOBIN 29.7 pg (27.0-31.0); MEAN CORPUSCULAR HGB CONC 32.2 g/dL (33.0-37.0); MONO # 0.9 K/uL (0.0-0.8); MONO % 5.2 % (0.0-10.0); NEUT # 12.5 K/uL (1.8-7.0); NEUT % 71.2 % (50.0-75.0); NRBC % 0.1 % (0.0-2.0); RBC 2.85 Mil/uL (3.80-5.20); RED CELL DISTRIBUTION WIDTH 19.7 % (11.5-14.5); WHITE BLOOD COUNT 17.6 K/uL (4.8-10.8)
[2018-03-24] MEDS: Heparin25000 units/250ml 1/2NS 25,000 UNITS/250 ML BAG IV PRN (22:19)
--- NOTE | 2018-03-24 22:46 | CP.PCM.PN ---
Subjective - Date & Time of Evaluation Date of Evaluation: 03/24/18 Time of Evaluation: 19:00 - Subjective Subjective: Vented Objective - Vital Signs/Intake and Output Vital Signs (last 24 hours): Temp Pulse Resp BP Pulse Ox 99.1 F 98 H 18 138/58 L 100 03/24/18 20:00 03/24/18 20:00 03/24/18 20:00 03/24/18 19:52 03/24/18 20:00 Intake and Output: 03/24/18 03/25/18 18:59 06:59 Intake Total 2528.0 397.0 Output Total 1145 80 Balance 1383.0 317.0 - Medications Medications: Current Medications Albumin Human (Albumin Human 25% (12.5 Gm/50 Ml)) 25 gm IV Q6H [facility] Last Admin: 03/24/18 21:15 Dose: 25 gm Albuterol/Ipratropium (Duoneb 3 Mg/0.5 Mg (3 Ml) Ud) 3 ml INH RQ6 [facility] Last Admin: 03/24/18 19:45 Dose: 3 ml Artificial Tears (Artificial Tears) 0.05 ml OU Q4H [facility] Last Admin: 03/24/18 21:16 Dose: 1 drop Dextrose (Dextrose 50% Inj) 0 ml IV STAT PRN; Protocol PRN Reason: Hypoglycemia Protocol Last Admin: 03/11/18 00:13 Dose: 50 ml Dextrose (Glutose 15) 0 gm PO ONCE PRN; Protocol PRN Reason: Hypoglycemia Protocol Furosemide (Lasix) 40 mg IVP DAILY [facility] Last Admin: 03/24/18 09:32 Dose: 40 mg Glucagon (Glucagen Diagnostic Kit) 0 mg IM STAT PRN; Protocol PRN Reason: Hypoglycemia Protocol Hydromorphone HCl (Dilaudid) 0.5 mg IVP Q3 PRN PRN Reason: Pain, severe (8-10) Last Admin: 03/21/18 08:37 Dose: 0.5 mg Metronidazole (Flagyl) 500 mg in 100 mls @ 100 mls/hr IVPB Q8H [facility]; Protocol Last Admin: 03/24/18 22:12 Dose: 100 mls/hr Heparin Sodium/Sodium Chloride (Heparin 80216 Units/250ml 1/2 Normal Saline) 25,000 units in 250 mls @ 9.4 mls/hr IV .Q24H PRN; Protocol PRN Reason: PROTOCOL Last Admin: 03/24/18 22:19 Dose: 8.8 units/kg/hr, 9.4 mls/hr Fentanyl Citrate 2,500 mcg/ (Sodium Chloride) 250 mls @ 20.82 mls/hr IV .Q12H1M [facility]; Protocol Last Admin: 03/24/18 17:32 Dose: 2 mcg/kg/hr, 20.82 mls/hr Dexmedetomidine HCl 200 mcg/ (Sodium Chloride) 50 mls @ 5.21 mls/hr IV TITR PRN; Protocol PRN Reason: Pain, Mild (1-3) Last Admin: 03/24/18 09:44 Dose: 0.05 mcg/kg/hr, 1.3 mls/hr Multivitamins/Vitamin C 10 ml/Insulin Human Regular 10 unit / Ch romium/Copper/Manganese/Zinc 1 ml/ Parenteral Electrolytes 20 ml/ Amino Acids 1,031.1 mls @ 42 mls/hr IV .Q24H ONE Stop: 03/25/18 17:59 Last Admin: 03/24/18 17:34 Dose: 42 mls/hr Ceftazidime/Avibactam 2.5 gm/ (Sodium Chloride) 100 mls @ 50 mls/hr IV Q8H [facility]; Protocol Last Admin: 03/24/18 16:43 Dose: 50 mls/hr Insulin Aspart (Novolog) 0 unit SC Q6 [facility]; Protocol Last Admin: 03/24/18 18:40 Dose: 4 units Levothyroxine Sodium (Levothyroxine) 75 mcg IVP DAILY [facility] Last Admin: 03/24/18 09:44 Dose: 75 mcg Pantoprazole Sodium (Protonix Inj) 40 mg IVP Q12H [facility] Last Admin: 03/24/18 16:41 Dose: 40 mg Vitamin A (Vitamin A & D Oint Ud Foilpak) 0.5 ea TOP Q4 PRN PRN Reason: Lip dryness Last Admin: 03/24/18 21:29 Dose: 0.5 ea - Labs Labs: 03/24/18 21:34 03/24/18 05:37 PT 21.5 SECONDS (9.7-12.2) H 03/22/18 06:30 INR 2.0 03/22/18 06:30 APTT 66 SECONDS (21-34) H D 03/24/18 05:37 - Head Exam Head Exam: ATRAUMATIC - Eye Exam Eye Exam: Normal appearance - ENT Exam ENT Exam: Mucous Membranes Dry - Respiratory Exam Respiratory Exam: NORMAL BREATHING PATTERN - Cardiovascular Exam Cardiovascular Exam: +S1, +S2 - GI/Abdominal Exam GI & Abdominal Exam: Normal Bowel Sounds Assessment and Plan (1) Anemia Assessment & Plan: anemia of chronic disease transfusion support PRN Status: Acute (2) Coagulopathy Assessment & Plan: nutritional and anticoagulation Status: Acute (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
--- NOTE | 2018-03-24 23:59 | CP.PCM.PN ---
Subjective - Date & Time of Evaluation Date of Evaluation: 03/24/18 Time of Evaluation: 12:20 - Subjective Subjective: clinically same Objective - Vital Signs/Intake and Output Vital Signs (last 24 hours): Temp Pulse Resp BP Pulse Ox 99.1 F 108 H 24 152/63 H 96 03/24/18 20:00 03/24/18 23:52 03/24/18 23:52 03/24/18 23:52 03/24/18 23:52 Intake and Output: 03/24/18 03/25/18 18:59 06:59 Intake Total 2528.0 817.5 Output Total 1145 200 Balance 1383.0 617.5 - Medications Medications: Current Medications Albumin Human (Albumin Human 25% (12.5 Gm/50 Ml)) 25 gm IV Q6H [facility] Last Admin: 03/24/18 21:15 Dose: 25 gm Albuterol/Ipratropium (Duoneb 3 Mg/0.5 Mg (3 Ml) Ud) 3 ml INH RQ6 [facility] Last Admin: 03/24/18 19:45 Dose: 3 ml Artificial Tears (Artificial Tears) 0.05 ml OU Q4H [facility] Last Admin: 03/24/18 21:16 Dose: 1 drop Dextrose (Dextrose 50% Inj) 0 ml IV STAT PRN; Protocol PRN Reason: Hypoglycemia Protocol Last Admin: 03/11/18 00:13 Dose: 50 ml Dextrose (Glutose 15) 0 gm PO ONCE PRN; Protocol PRN Reason: Hypoglycemia Protocol Furosemide (Lasix) 40 mg IVP DAILY [facility] Last Admin: 03/24/18 09:32 Dose: 40 mg Glucagon (Glucagen Diagnostic Kit) 0 mg IM STAT PRN; Protocol PRN Reason: Hypoglycemia Protocol Hydromorphone HCl (Dilaudid) 0.5 mg IVP Q3 PRN PRN Reason: Pain, severe (8-10) Last Admin: 03/21/18 08:37 Dose: 0.5 mg Metronidazole (Flagyl) 500 mg in 100 mls @ 100 mls/hr IVPB Q8H [facility]; Protocol Last Admin: 03/24/18 22:12 Dose: 100 mls/hr Heparin Sodium/Sodium Chloride (Heparin 22902 Units/250ml 1/2 Normal Saline) 25,000 units in 250 mls @ 9.4 mls/hr IV .Q24H PRN; Protocol PRN Reason: PROTOCOL Last Admin: 03/24/18 22:19 Dose: 8.8 units/kg/hr, 9.4 mls/hr Fentanyl Citrate 2,500 mcg/ (Sodium Chloride) 250 mls @ 20.82 mls/hr IV .Q12H1M [facility]; Protocol Last Admin: 03/24/18 17:32 Dose: 2 mcg/kg/hr, 20.82 mls/hr Dexmedetomidine HCl 200 mcg/ (Sodium Chloride) 50 mls @ 5.21 mls/hr IV TITR PRN; Protocol PRN Reason: Pain, Mild (1-3) Last Admin: 03/24/18 09:44 Dose: 0.05 mcg/kg/hr, 1.3 mls/hr Multivitamins/Vitamin C 10 ml/Insulin Human Regular 10 unit / Chromium/Copper/Manganese/Zinc 1 ml/ Parenteral Electrolytes 20 ml/ Amino Acids 1,031.1 mls @ 42 mls/hr IV .Q24H ONE Stop: 03/25/18 17:59 Last Admin: 03/24/18 17:34 Dose: 42 mls/hr Ceftazidime/Avibactam 2.5 gm/ (Sodium Chloride) 100 mls @ 50 mls/hr IV Q8H [facility]; Protocol Last Admin: 03/24/18 16:43 Dose: 50 mls/hr Insulin Aspart (Novolog) 0 unit SC Q6 [facility]; Protocol Last Admin: 03/24/18 18:40 Dose: 4 units Levothyroxine Sodium (Levothyroxine) 75 mcg IVP DAILY [facility] Last Admin: 03/24/18 09:44 Dose: 75 mcg Pantoprazole Sodium (Protonix Inj) 40 mg IVP Q12H [facility] Last Admin: 03/24/18 16:41 Dose: 40 mg Vitamin A (Vitamin A & D Oint Ud Foilpak) 0.5 ea TOP Q4 PRN PRN Reason: Lip dryness Last Admin: 03/24/18 21:29 Dose: 0.5 ea - Labs Labs: 03/24/18 21:34 03/24/18 05:37 PT 21.5 SECONDS (9.7-12.2) H 03/22/18 06:30 INR 2.0 03/22/18 06:30 APTT 66 SECONDS (21-34) H D 03/24/18 05:37 - Constitutional Appears: Well - Head Exam Head Exam: ATRAUMATIC, NORMAL INSPECTION, NORMOCEPHALIC - Eye Exam Eye Exam: EOMI, Normal appearance, PERRL Pupil Exam: NORMAL ACCOMODATION, PERRL - ENT Exam ENT Exam: Mucous Membranes Moist, Normal Exam - Neck Exam Neck Exam: Full ROM, Normal Inspection. absent: Lymphadenopathy - Respiratory Exam Respiratory Exam: Decreased Breath Sounds - Cardiovascular Exam Cardiovascular Exam: REGULAR RHYTHM, +S1, +S2 - GI/Abdominal Exam GI & Abdominal Exam: Soft, Diminished Bowel Sounds - Rectal Exam Rectal Exam: Deferred
[2018-03-25] MEDS: (Novolog) Insulin Aspart, Recombinant 100 u/ml 10 ml vial SC SCH ×4 (00:06→18:30)
[2018-03-25] MEDS: Albuterol-Ipratrop 3 mg / 0.5 (3 ml) UD INH SCH ×4 (01:10→20:04)
--- NOTE | 2018-03-25 01:34 | PN ---
DATE: 03/24/2018 INFECTIOUS DISEASE FOLLOWUP NOTE SUBJECTIVE: I was away and the patient was seen today after a long time. Dr. Negrete was covering till today and the patient remains in ICU on ventilator. Her children were at the bedside. The patient's eyes were open, otherwise, she remains intubated. PHYSICAL EXAMINATION: VITAL SIGNS: Temperature is 99.3, pulse 95, blood pressure 146/59, and respirations are 23. NECK: Supple. LUNGS: Mild bilateral occasional rhonchi and few crackles. HEART: S1 and S2 regular. ABDOMEN: Soft, flabby, and nontender. There is drainage seepage from the right lower quadrant of biliary fluid, and probably, she has ascites which is draining and leakage probably from the site where the peritoneal fluid was taken. They are putting lot of clothing to collect it at this time. EXTREMITIES: Remain with edema and also had some blisters because of swelling. White count today is 13.3, hemoglobin remains 6.9, hematocrit 21.3, and platelet count is 279. She remains severely anemic. Bands are 14 on 03/23 and sodium is 144, potassium 4, chlorides are 112, CO2 is 19, anion gap is 17, creatinine is 0.7, alk phos is 192. Micro shows that the body fluids has Stenotrophomonas maltophilia and sputum also has the same and it is only sensitive to since there is leakage of the peritoneal fluid, I have put her on which could cover also for the Klebsiella which was previously isolated from the sputum. She still remains jaundiced and her liver enzymes remain elevated. The patient has acute respiratory failure, severe jaundice, and severe anemia, Stenotrophomonas pneumonia, and Stenotrophomonas in the fluid. It could be that the aspirated sputum, infected external site where the fluid was taken from. Prognosis remains very poor. We will follow, and the nurse was saying that the family may be talking to the palliative nurse which is pending at this time. Lv Gamboa MD
[2018-03-25] MEDS: Aritificial Tears (15ml) OU SCH ×5 (02:05→21:51)
[2018-03-25] MEDS: Albumin Human 25% (12.5 gm/50 ml) IV SCH ×4 (03:05→21:50)
[2018-03-25] MEDS: metroNIDAZOLE IV 500 mg/100 ml 500 MG/100 ML BAG IVPB SCH (06:00)
[2018-03-25 06:12] LABS: BASO # 0.1 K/uL (0.0-0.2); BASO % 0.8 % (0.0-2.0); EOS # 0.1 K/uL (0.0-0.7); EOS % 0.7 % (0.0-4.0); HEMOGLOBIN 8.1 g/dL (11.0-16.0); LYMPH # 3.5 K/uL (1.0-4.3); LYMPH % 20.1 % (20.0-40.0); MEAN CELL VOLUME 93.1 fL (81.0-99.0); MEAN CORPUSCULAR HEMOGLOBIN 29.9 pg (27.0-31.0); MEAN CORPUSCULAR HGB CONC 32.1 g/dL (33.0-37.0); MEAN PLATELET VOLUME 10.8 fL (7.2-11.7); MONO # 0.9 K/uL (0.0-0.8); MONO % 5.3 % (0.0-10.0); NEUT # 12.7 K/uL (1.8-7.0); NEUT % 73.1 % (50.0-75.0); NRBC % 0.8 % (0.0-2.0); RBC 2.72 Mil/uL (3.80-5.20); RED CELL DISTRIBUTION WIDTH 19.7 % (11.5-14.5); WHITE BLOOD COUNT 17.3 K/uL (4.8-10.8)
[2018-03-25 06:25] LABS: ABG ALLEN TEST POS; ARTERIAL BLOOD GAS HCO3 21.4 mmol/L (21-28); ARTERIAL BLOOD GAS HEMOGLOBIN 8.1 g/dL (11.7-17.4); ARTERIAL BLOOD GAS O2 SAT 99.1 % (95-98); ARTERIAL BLOOD GAS PCO2 34 mm/Hg (35-45); ARTERIAL BLOOD GAS PH 7.38 (7.35-7.45); ARTERIAL BLOOD GAS PO2 72 mm/Hg (80-100); ARTERIAL BLOOD GAS TCO2 21.1 mmol/L (22-28)
[2018-03-25 06:53] LABS: ALB/GLOB RATIO 1.2 (1.0-2.1); ALBUMIN 3.4 g/dL (3.5-5.0); ALT/SGPT 31 U/L (9-52); AST/SGOT 65 U/L (14-36); BLOOD UREA NITROGEN 22 mg/dL (7-17); GFR NON-AFRICAN AMERICAN > 60
--- NOTE | 2018-03-25 07:43 | CP.CCUPN ---
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 2.7 (2.2-3.9) gm/dL Albumin/Globulin Ratio 1.3 (1.0-2.1) 03/26/18 03/26/18 03/25/18 Range/Units 05:42 05:21 23:23 WBC 15.3 H (4.8-10.8) K/uL RBC 2.41 L (3.80-5.20) Mil/uL Hgb 7.2 L (11.0-16.0) g/dL Hct 22.6 L (34.0-47.0) % MCV 93.7 (81.0-99.0) fL MCH 29.8 (27.0-31.0) pg MCHC 31.8 L (33.0-37.0) g/dL RDW 19.7 H (11.5-14.5) % Plt Count 314 (130-400) K/uL MPV 10.5 (7.2-11.7) fL Neut % (Auto) 76.8 H (50.0-75.0) % Lymph % (Auto) 15.5 L (20.0-40.0) % Davie % (Auto) 6.2 (0.0-10.0) % Eos % (Auto) 0.9 (0.0-4.0) % Baso % (Auto) 0.6 (0.0-2.0) % Neut # (Auto) 11.8 H (1.8-7.0) K/uL Lymph # (Auto) 2.4 (1.0-4.3) K/uL Davie # (Auto) 0.9 H (0.0-0.8) K/uL Eos # (Auto) 0.1 (0.0-0.7) K/uL Baso # (Auto) 0.1 (0.0-0.2) K/uL APTT (21-34) SECONDS Puncture Site Rr pCO2 37 (35-45) mm/Hg pO2 76 L (80-100) mm/Hg HCO3 21.7 (21-28) mmol/L ABG pH 7.36 (7.35-7.45) ABG Total CO2 22.0 (22-28) mmol/L ABG O2 Saturation 98.4 H (95-98) % ABG Base Excess -4.1 L (-2.0-3.0) mmol/L ABG Hemoglobin 7.6 L (11.7-17.4) g/dL ABG Carboxyhemoglobin 2.5 H (0.5-1.5) % POC ABG HHb (Measured) 1.5 (0.0-5.0) % ABG Methemoglobin 1.3 (0.0-3.0) % Michele Test Pos A-a O2 Difference 163.0 mm/Hg Respiratory Index 2.1 Hgb O2 Saturation 94.7 L (95.0-98.0) % Vent Mode Prvc Mechanical Rate 15 FiO2 40.0 % Tidal Volume 450 PEEP 5 Sodium (132-148) mmol/L Potassium (3.6-5.2) mmol/L Chloride (98-107) mmol/L Carbon Dioxide (22-30) mmol/L Anion Gap (10-20) BUN (7-17) mg/dL Creatinine (0.7-1.2) mg/dL Est GFR ( Amer) Est GFR (Non-Af Amer) POC Glucose (mg/dL) 272 H (65-110) mg/dL Random Glucose (65-105) mg/dL Calcium (8.6-10.4) mg/dl Phosphorus (2.5-4.5) mg/dL Magnesium (1.6-2.3) mg/dL Total Bilirubin (0.2-1.3) mg/dL AST (14-36) U/L ALT (9-52) U/L Alkaline Phosphatase (38-126) U/L Total Protein (6.3-8.3) g/dL Albumin (3.5-5.0) g/dL Globulin (2.2-3.9) gm/dL Albumin/Globulin Ratio (1.0-2.1) 03/25/18 Range/Units 18:02 WBC (4.8-10.8) K/uL RBC (3.80-5.20) Mil/uL Hgb (11.0-16.0) g/dL Hct (34.0-47.0) % MCV (81.0-99.0) fL MCH (27.0-31.0) pg MCHC (33.0-37.0) g/dL RDW (11.5-14.5) % Plt Count (130-400) K/uL MPV (7.2-11.7) fL Neut % (Auto) (50.0-75.0) % Lymph % (Auto) (20.0-40.0) % Davie % (Auto) (0.0-10.0) % Eos % (Auto) (0.0-4.0) % Baso % (Auto) (0.0-2.0) % Neut # (Auto) (1.8-7.0) K/uL Lymph # (Auto) (1.0-4.3) K/uL Davie # (Auto) (0.0-0.8) K/uL Eos # (Auto) (0.0-0.7) K/uL Baso # (Auto) (0.0-0.2) K/uL APTT (21-34) SECONDS Puncture Site pCO2 (35-45) mm/Hg pO2 (80-100) mm/Hg HCO3 (21-28) mmol/L ABG pH (7.35-7.45) ABG Total CO2 (22-28) mmol/L ABG O2 Saturation (95-98) % ABG Base Excess (-2.0-3.0) mmol/L ABG Hemoglobin (11.7-17.4) g/dL ABG Carboxyhemoglobin (0.5-1.5) % POC ABG HHb (Measured) (0.0-5.0) % ABG Methemoglobin (0.0-3.0) % Michele Test A-a O2 Difference mm/Hg Respiratory Index Hgb O2 Saturation (95.0-98.0) % Vent Mode Mechanical Rate FiO2 % Tidal Volume PEEP Sodium (132-148) mmol/L Potassium (3.6-5.2) mmol/L Chloride (98-107) mmol/L Carbon Dioxide (22-30) mmol/L Anion Gap (10-20) BUN (7-17) mg/dL Creatinine (0.7-1.2) mg/dL Est GFR ( Amer) Est GFR (Non-Af Amer) POC Glucose (mg/dL) 232 H (65-110) mg/dL Random Glucose (65-105) mg/dL Calcium (8.6-10.4) mg/dl Phosphorus (2.5-4.5) mg/dL Magnesium (1.6-2.3) mg/dL Total Bilirubin (0.2-1.3) mg/dL AST (14-36) U/L ALT (9-52) U/L Alkaline Phosphatase (38-126) U/L Total Protein (6.3-8.3) g/dL Albumin (3.5-5.0) g/dL Globulin (2.2-3.9) gm/dL Albumin/Globulin Ratio (1.0-2.1) Laboratory Results - last 24 hr 03/25/18 03/25/18 03/26/18 18:02 23:23 05:21 WBC RBC Hgb Hct MCV MCH MCHC RDW Plt Count MPV Neut % (Auto) Lymph % (Auto) Davie % (Auto) Eos % (Auto) Baso % (Auto) Neut # (Auto) Lymph # (Auto) Davie # (Auto) Eos # (Auto) Baso # (Auto) APTT Puncture Site Rr pCO2 37 pO2 76 L HCO3 21.7 ABG pH 7.36 ABG Total CO2 22.0 ABG O2 Saturation 98.4 H ABG Base Excess -4.1 L ABG Hemoglobin 7.6 L ABG Carboxyhemoglobin 2.5 H POC ABG HHb (Measured) 1.5 ABG Methemoglobin 1.3 Michele Test Pos A-a O2 Difference 163.0 Respiratory Index 2.1 Hgb O2 Saturation 94.7 L Vent Mode Prvc Mechanical Rate 15 FiO2 40.0 Tidal Volume 450 PEEP 5 Sodium Potassium Chloride Carbon Dioxide Anion Gap BUN Creatinine Est GFR ( Amer) Est GFR (Non-Af Amer) POC Glucose (mg/dL) 232 H 272 H Random Glucose Calcium Phosphorus Magnesium Total Bilirubin AST ALT Alkaline Phosphatase Total Protein Albumin Globulin Albumin/Globulin Ratio 03/26/18 03/26/18 03/26/18 05:42 05:42 05:42 WBC 15.3 H RBC 2.41 L Hgb 7.2 L Hct 22.6 L MCV 93.7 MCH 29.8 MCHC 31.8 L RDW 19.7 H Plt Count 314 MPV 10.5 Neut % (Auto) 76.8 H Lymph % (Auto) 15.5 L Davie % (Auto) 6.2 Eos % (Auto) 0.9 Baso % (Auto) 0.6 Neut # (Auto) 11.8 H Lymph # (Auto) 2.4 Davie # (Auto) 0.9 H Eos # (Auto) 0.1 Baso # (Auto) 0.1 APTT 88 H D Puncture Site pCO2 pO2 HCO3 ABG pH ABG Total CO2 ABG O2 Saturation ABG Base Excess ABG Hemoglobin ABG Carboxyhemoglobin POC ABG HHb (Measured) ABG Methemoglobin Michele Test A-a O2 Difference Respiratory Index Hgb O2 Saturation Vent Mode Mechanical Rate FiO2 Tidal Volume PEEP Sodium 144 Potassium 3.3 L Chloride 112 H Carbon Dioxide 21 L Anion Gap 14 BUN 20 H Creatinine 0.6 L Est GFR ( Amer) > 60 Est GFR (Non-Af Amer) > 60 POC Glucose (mg/dL) Random Glucose 195 H Calcium 8.0 L Phosphorus 2.8 Magnesium 1.7 Total Bilirubin 5.0 H AST 47 H D ALT 25 Alkaline Phosphatase 156 H Total Protein 6.2 L Albumin 3.5 Globulin 2.7 Albumin/Globulin Ratio 1.3 03/26/18 05:45 WBC RBC Hgb Hct MCV MCH MCHC RDW Plt Count MPV Neut % (Auto) Lymph % (Auto) Davie % (Auto) Eos % (Auto) Baso % (Auto) Neut # (Auto) Lymph # (Auto) Davie # (Auto) Eos # (Auto) Baso # (Auto) APTT Puncture Site pCO2 pO2 HCO3 ABG pH ABG Total CO2 ABG O2 Saturation ABG Base Excess ABG Hemoglobin ABG Carboxyhemoglobin POC ABG HHb (Measured) ABG Methemoglobin Michele Test A-a O2 Difference Respiratory Index Hgb O2 Saturation Vent Mode Mechanical Rate FiO2 Tidal Volume PEEP Sodium Potassium Chloride Carbon Dioxide Anion Gap BUN Creatinine Est GFR ( Amer) Est GFR (Non-Af Amer) POC Glucose (mg/dL) 188 H Random Glucose Calcium Phosphorus Magnesium Total Bilirubin AST ALT Alkaline Phosphatase Total Protein Albumin Globulin Albumin/Globulin Ratio Critical Care Progress Note - Nutrition Nutrition: Nutrition Category Date Time Status NPO Diet [DIET] Diets 03/06/18 Breakfast Active Attending/Attestation - Attestation I have personally seen and examined this patient.: Yes I have fully participated in the care of the patient.: Yes I have reviewed all pertinent clinical information: Yes Notes (Text): patient seen and examined in the intensive care unit. Remained intubated on ventilatory support No change in patient's condition Patient DNR/DNI Patient to decide for terminal extubation Prognosis poor
[2018-03-25] MEDS: Levothyroxine 200 mcg (0.2 mg) Inj IVP SCH (09:00)
--- NOTE | 2018-03-25 09:48 | RAD ---
Date of service: 03/25/2018 HISTORY: intubated COMPARISON: 03/24/2018 FINDINGS: LUNGS: Slightly shallow lung volumes. Interval progressive homogeneous opacities in each inferior hemithorax slightly greater on the left. Underlying bilateral pleural effusions coalescent areas of pulmonary edema/pulmonary venous congestion inferred. Concomitant left basal atelectasis also likely.-patchy concomitant infiltrates cannot be excluded. Endotracheal tube tip approximately 4 to 5 cm cephalad from carson PLEURA: Interval increased bilateral pleural effusions left greater than right. No pneumothorax appreciated. CARDIOVASCULAR: There is presence of aortic atherosclerotic calcification on x-ray. Cardiomegaly interval worsening pulmonary venous congestion/pulmonary edema Right internal jugular vein catheter tip superior vena cava OSSEOUS STRUCTURES: No significant abnormalities. VISUALIZED UPPER ABDOMEN: Nasogastric tube distal course difficult to track-tip believed faintly perceived in stomach-similar to before OTHER FINDINGS: None. IMPRESSION: Worsening CHF. -as detailed above. Support lines as above
--- NOTE | 2018-03-25 13:04 | CP.PCM.PN ---
Subjective - Date & Time of Evaluation Date of Evaluation: 03/25/18 Time of Evaluation: 12:30 - Subjective Subjective: clinically worsened extubated Objective - Vital Signs/Intake and Output Vital Signs (last 24 hours): Temp Pulse Resp BP Pulse Ox 100.3 F H 130 H 22 147/34 L 96 03/25/18 12:00 03/25/18 12:00 03/25/18 12:00 03/25/18 11:52 03/25/18 12:00 Intake and Output: 03/25/18 03/25/18 06:59 18:59 Intake Total 1882.0 641.0 Output Total 650 Balance 1232.0 641.0 - Medications Medications: Current Medications Albumin Human (Albumin Human 25% (12.5 Gm/50 Ml)) 25 gm IV Q6H [facility] Last Admin: 03/25/18 09:00 Dose: 25 gm Albuterol/Ipratropium (Duoneb 3 Mg/0.5 Mg (3 Ml) Ud) 3 ml INH RQ6 [facility] Last Admin: 03/25/18 01:10 Dose: 3 ml Artificial Tears (Artificial Tears) 0.05 ml OU Q4H [facility] Last Admin: 03/25/18 09:02 Dose: 1 drop Dextrose (Dextrose 50% Inj) 0 ml IV STAT PRN; Protocol PRN Reason: Hypoglycemia Protocol Last Admin: 03/11/18 00:13 Dose: 50 ml Dextrose (Glutose 15) 0 gm PO ONCE PRN; Protocol PRN Reason: Hypoglycemia Protocol Furosemide (Lasix) 40 mg IVP DAILY [facility] Last Admin: 03/25/18 08:59 Dose: 40 mg Glucagon (Glucagen Diagnostic Kit) 0 mg IM STAT PRN; Protocol PRN Reason: Hypoglycemia Protocol Hydromorphone HCl (Dilaudid) 0.5 mg IVP Q3 PRN PRN Reason: Pain, severe (8-10) Last Admin: 03/21/18 08:37 Dose: 0.5 mg Metronidazole (Flagyl) 500 mg in 100 mls @ 100 mls/hr IVPB Q8H [facility]; Protocol Last Admin: 03/25/18 06:00 Dose: 100 mls/hr Heparin Sodium/Sodium Chloride (Heparin 19695 Units/250ml 1/2 Normal Saline) 25,000 units in 250 mls @ 9.4 mls/hr IV .Q24H PRN; Protocol PRN Reason: PROTOCOL Last Admin: 03/24/18 22:19 Dose: 8.8 units/kg/hr, 9.4 mls/hr Fentanyl Citrate 2,500 mcg/ (Sodium Chloride) 250 mls @ 20.82 mls/hr IV .Q12H1M [facility]; Protocol Last Admin: 03/25/18 07:16 Dose: Not Given Dexmedetomidine HCl 200 mcg/ (Sodium Chloride) 50 mls @ 5.21 mls/hr IV TITR PRN; Protocol PRN Reason: Pain, Mild (1-3) Last Admin: 03/24/18 09:44 Dose: 0.05 mcg/kg/hr, 1.3 mls/hr Multivitamins/Vitamin C 10 ml/Insulin Human Regular 10 unit / Chromium/Copper/Manganese/Zinc 1 ml/ Parenteral Electrolytes 20 ml/ Amino Acids 1,031.1 mls @ 42 mls/hr IV .Q24H ONE Stop: 03/25/18 17:59 Last Admin: 03/24/18 17:34 Dose: 42 mls/hr Ceftazidime/Avibactam 2.5 gm/ (Sodium Chloride) 100 mls @ 50 mls/hr IV Q8H [facility]; Protocol Last Admin: 03/25/18 08:55 Dose: 50 mls/hr Multivitamins/Vitamin C 10 ml/Insulin Human Regular 10 unit / Chromium/Copper /Manganese/Zinc 1 ml/ Amino Acids/Electrolytes/Dextrose 1,011.1 mls @ 42 mls/hr IV .Q24H ONE Stop: 03/26/18 17:59 Insulin Aspart (Novolog) 0 unit SC Q6 [facility]; Protocol Last Admin: 03/25/18 05:55 Dose: 4 units Levothyroxine Sodium (Levothyroxine) 75 mcg IVP DAILY [facility] Last Admin: 03/25/18 09:00 Dose: 75 mcg Pantoprazole Sodium (Protonix Inj) 40 mg IVP Q12H [facility] Last Admin: 03/25/18 03:16 Dose: 40 mg Vitamin A (Vitamin A & D Oint Ud Foilpak) 0.5 ea TOP Q4 PRN PRN Reason: Lip dryness Last Admin: 03/24/18 21:29 Dose: 0.5 ea - Labs Labs: 03/25/18 06:05 03/25/18 06:03 PT 21.5 SECONDS (9.7-12.2) H 03/22/18 06:30 INR 2.0 03/22/18 06:30 APTT 53 SECONDS (21-34) H D 03/25/18 06:05 - Constitutional Appears: Well - Head Exam Head Exam: ATRAUMATIC, NORMAL INSPECTION, NORMOCEPHALIC - Eye Exam Eye Exam: EOMI, Normal appearance, PERRL Pupil Exam: NORMAL ACCOMODATION, PERRL - ENT Exam ENT Exam: Mucous Membranes Moist, Normal Exam - Neck Exam Neck Exam: Full ROM, Normal Inspection. absent: Lymphadenopathy - Respiratory Exam Respiratory Exam: Decreased Breath Sounds - Cardiovascular Exam Cardiovascular Exam: REGULAR RHYTHM, +S1, +S2 - GI/Abdominal Exam GI & Abdominal Exam: Soft, Diminished Bowel Sounds - Rectal Exam Rectal Exam: Deferred Assessment and Plan (1) Abdominal pain Status: Acute (2) Acute mesenteric ischemia Status: Acute (3) Anemia Status: Acute (4) Coagulopathy Status: Acute (5) Epigastric abdominal pain Status: Acute (6) History of cholangiocarcinoma Status: Acute (7) Jaundice Status: Acute (8) Leukocytosis Status: Acute (9) Liver failure Status: Acute (10) Sepsis Status: Acute
[2018-03-25] MEDS: Vitamins A & D Oint UD Foilpak TOP PRN ×2 (13:23→21:50)
--- NOTE | 2018-03-25 14:39 | CP.PCM.PN ---
Subjective - Date & Time of Evaluation Date of Evaluation: 03/25/18 Time of Evaluation: 07:00 - Subjective Subjective: Pt seen and examined at bedside this AM. Patient is easily arousable but anxious. Discussed again current status with family and they expressed interest in speaking to the palliative care team for end of life option discussion Objective - Vital Signs/Intake and Output Vital Signs (last 24 hours): Temp Pulse Resp BP Pulse Ox 100.3 F H 130 H 22 147/34 L 96 03/25/18 12:00 03/25/18 12:00 03/25/18 12:00 03/25/18 11:52 03/25/18 12:00 Intake and Output: 03/25/18 03/25/18 06:59 18:59 Intake Total 1882.0 641.0 Output Total 650 Balance 1232.0 641.0 - Medications Medications: Current Medications Albumin Human (Albumin Human 25% (12.5 Gm/50 Ml)) 25 gm IV Q6H [facility] Last Admin: 03/25/18 09:00 Dose: 25 gm Albuterol/Ipratropium (Duoneb 3 Mg/0.5 Mg (3 Ml) Ud) 3 ml INH RQ6 [facility] Last Admin: 03/25/18 13:33 Dose: 3 ml Artificial Tears (Artificial Tears) 0.05 ml OU Q4H [facility] Last Admin: 03/25/18 09:02 Dose: 1 drop Dextrose (Dextrose 50% Inj) 0 ml IV STAT PRN; Protocol PRN Reason: Hypoglycemia Protocol Last Admin: 03/11/18 00:13 Dose: 50 ml Dextrose (Glutose 15) 0 gm PO ONCE PRN; Protocol PRN Reason: Hypoglycemia Protocol Furosemide (Lasix) 40 mg IVP DAILY [facility] Last Admin: 03/25/18 08:59 Dose: 40 mg Glucagon (Glucagen Diagnostic Kit) 0 mg IM STAT PRN; Protocol PRN Reason: Hypoglycemia Protocol Hydromorphone HCl (Dilaudid) 0.5 mg IVP Q3 PRN PRN Reason: Pain, severe (8-10) Last Admin: 03/21/18 08:37 Dose: 0.5 mg Heparin Sodium/Sodium Chloride (Heparin 03169 Units/250ml 1/2 Normal Saline) 25,000 units in 250 mls @ 9.4 mls/hr IV .Q24H PRN; Protocol PRN Reason: PROTOCOL Last Admin: 03/24/18 22:19 Dose: 8.8 units/kg/hr, 9.4 mls/hr Fentanyl Citrate 2,500 mcg/ (Sodium Chloride) 250 mls @ 20.82 mls/hr IV .Q12H1M [facility]; Protocol Last Admin: 03/25/18 07:16 Dose: Not Given Dexmedetomidine HCl 200 mcg/ (Sodium Chloride) 50 mls @ 5.21 mls/hr IV TITR PRN; Protocol PRN Reason: Pain, Mild (1-3) Last Admin: 03/24/18 09:44 Dose: 0.05 mcg/kg/hr, 1.3 mls/hr Multivitamins/Vitamin C 10 ml/Insulin Human Regular 10 unit / Chromium/Copper/Manganese/Zinc 1 ml/ Parenteral Electrolytes 20 ml/ Amino Acids 1,031.1 mls @ 42 mls/hr IV .Q24H ONE Stop: 03/25/18 17:59 Last Admin: 03/24/18 17:34 Dose: 42 mls/hr Ceftazidime/Avibactam 2.5 gm/ (Sodium Chloride) 100 mls @ 50 mls/hr IV Q8H [facility]; Protocol Last Admin: 03/25/18 08:55 Dose: 50 mls/hr Multivitamins/Vitamin C 10 ml/Insulin Human Regular 10 unit / Chromium/Copper/Manganese/Zinc 1 ml/ Amino Acids/Electrolytes/Dextrose 1,011.1 mls @ 42 mls/hr IV .Q24H ONE Stop: 03/26/18 17:59 Insulin Aspart (Novolog) 0 unit SC Q6 [facility]; Protocol Last Admin: 03/25/18 13:22 Dose: 2 units Levothyroxine Sodium (Levothyroxine) 75 mcg IVP DAILY [facility] Last Admin: 03/25/18 09:00 Dose: 75 mcg Pantoprazole Sodium (Protonix Inj) 40 mg IVP Q12H [facility] Last Admin: 03/25/18 03:16 Dose: 40 mg Vitamin A (Vitamin A & D Oint Ud Foilpak) 0.5 ea TOP Q4 PRN PRN Reason: Lip dryness Last Admin: 03/25/18 13:23 Dose: 0.5 ea - Labs Labs: 03/25/18 06:05 03/25/18 06:03 PT 21.5 SECONDS (9.7-12.2) H 03/22/18 06:30 INR 2.0 03/22/18 06:30 APTT 53 SECONDS (21-34) H D 03/25/18 06:05 - Constitutional Appears: No Acute Distress - Head Exam Head Exam: ATRAUMATIC, NORMOCEPHALIC - Eye Exam Eye Exam: Normal appearance. absent: Conjunctival injection, Scleral icterus - ENT Exam ENT Exam: Mucous Membranes Moist, Normal Oropharynx - Respiratory Exam Respiratory Exam: absent: Accessory Muscle Use, Respiratory Distress Additional comments: on mechanical ventilation - Cardiovascular Exam Cardiovascular Exam: RRR - GI/Abdominal Exam GI & Abdominal Exam: Distended, Firm, Tenderness Additional comments: midline incision with dressing intact and mildly saturated with seropurlent fluid, drainage from prior Whipple incision and from jejunostomy tube insertion site - Extremities Exam Extremities Exam: Pedal Edema - Neurological Exam Neurological Exam: Altered - Psychiatric Exam Psychiatric exam: Anxious - Skin Skin Exam: Dry, Normal Color, Warm Assessment and Plan - Assessment and Plan (Free Text) Assessment: 82F with mesenteric ischemia s/p multiple exploratory laparotomies, with unsalvageable small bowel necrosis Plan: No further surgical intervention would be of benefit at this point Continue medical therapy currently Pain medication Care goals per family Discussed with Dr. Fortino Thompson, PGY2
[2018-03-25] MEDS ORDERED: TPN #14 IV ONE (18:00)
[2018-03-25] MEDS: Dexmedetomidine Hydrochloride 200 MCG in Sodium Chloride 0.9% 48 ML IV PRN (20:22)
--- NOTE | 2018-03-25 21:24 | CP.PCM.PN ---
Subjective - Date & Time of Evaluation Date of Evaluation: 03/25/18 Time of Evaluation: 15:00 - Subjective Subjective: Appears comfortable Objective - Vital Signs/Intake and Output Vital Signs (last 24 hours): Temp Pulse Resp BP Pulse Ox 99.9 F H 100 H 16 105/42 L 98 03/25/18 20:00 03/25/18 21:00 03/25/18 21:00 03/25/18 20:52 03/25/18 21:00 Intake and Output: 03/25/18 03/26/18 18:59 06:59 Intake Total 1532.0 123.5 Output Total 500 Balance 1032.0 123.5 - Medications Medications: Current Medications Albumin Human (Albumin Human 25% (12.5 Gm/50 Ml)) 25 gm IV Q6H [facility] Last Admin: 03/25/18 15:30 Dose: 25 gm Albuterol/Ipratropium (Duoneb 3 Mg/0.5 Mg (3 Ml) Ud) 3 ml INH RQ6 [facility] Last Admin: 03/25/18 20:04 Dose: 3 ml Artificial Tears (Artificial Tears) 0.05 ml OU Q4H [facility] Last Admin: 03/25/18 14:00 Dose: 1 drop Dextrose (Dextrose 50% Inj) 0 ml IV STAT PRN; Protocol PRN Reason: Hypoglycemia Protocol Last Admin: 03/11/18 00:13 Dose: 50 ml Dextrose (Glutose 15) 0 gm PO ONCE PRN; Protocol PRN Reason: Hypoglycemia Protocol Furosemide (Lasix) 40 mg IVP DAILY [facility] Last Admin: 03/25/18 08:59 Dose: 40 mg Glucagon (Glucagen Diagnostic Kit) 0 mg IM STAT PRN; Protocol PRN Reason: Hypoglycemia Protocol Hydromorphone HCl (Dilaudid) 0.5 mg IVP Q3 PRN PRN Reason: Pain, severe (8-10) Last Admin: 03/21/18 08:37 Dose: 0.5 mg Heparin Sodium/Sodium Chloride (Heparin 00574 Units/250ml 1/2 Normal Saline) 25,000 units in 250 mls @ 9.4 mls/hr IV .Q24H PRN; Protocol PRN Reason: PROTOCOL Last Admin: 03/24/18 22:19 Dose: 8.8 units/kg/hr, 9.4 mls/hr Fentanyl Citrate 2,500 mcg/ (Sodium Chloride) 250 mls @ 20.82 mls/hr IV .Q12H1M [facility]; Protocol Last Admin: 03/25/18 19:40 Dose: 2 mcg/kg/hr, 20.82 mls/hr Dexmedetomidine HCl 200 mcg/ (Sodium Chloride) 50 mls @ 5.21 mls/hr IV TITR PRN; Protocol PRN Reason: Pain, Mild (1-3) Last Admin: 03/25/18 20:22 Dose: 0.05 mcg/kg/hr, 1.3 mls/hr Ceftazidime/Avibactam 2.5 gm/ (Sodium Chloride) 100 mls @ 50 mls/hr IV Q8H [facility]; Protocol Last Admin: 03/25/18 15:29 Dose: 50 mls/hr Multivitamins/Vitamin C 10 ml/Insulin Human Regular 10 unit / Chromium/Copper/Manganese/Zinc 1 ml/ Amino Acids/Electrolytes/Dextrose 1,011.1 mls @ 42 mls/hr IV .Q24H ONE Stop: 03/26/18 17:59 Last Admin: 03/25/18 18:30 Dose: 42 mls/hr Insulin Aspart (Novolog) 0 unit SC Q6 [facility]; Protocol Last Admin: 03/25/18 18:30 Dose: 4 units Levothyroxine Sodium (Levothyroxine) 75 mcg IVP DAILY [facility] Last Admin: 03/25/18 09:00 Dose: 75 mcg Pantoprazole Sodium (Protonix Inj) 40 mg IVP Q12H [facility] Last Admin: 03/25/18 15:29 Dose: 40 mg Vitamin A (Vitamin A & D Oint Ud Foilpak) 0.5 ea TOP Q4 PRN PRN Reason: Lip dryness Last Admin: 03/25/18 13:23 Dose: 0.5 ea - Labs Labs: 03/25/18 06:05 03/25/18 06:03 PT 21.5 SECONDS (9.7-12.2) H 03/22/18 06:30 INR 2.0 03/22/18 06:30 APTT 53 SECONDS (21-34) H D 03/25/18 06:05 - Head Exam Head Exam: ATRAUMATIC - Eye Exam Eye Exam: Normal appearance - ENT Exam ENT Exam: Mucous Membranes Dry - Respiratory Exam Respiratory Exam: NORMAL BREATHING PATTERN - Cardiovascular Exam Cardiovascular Exam: +S1, +S2 - GI/Abdominal Exam GI & Abdominal Exam: Normal Bowel Sounds Assessment and Plan (1) Anemia Assessment & Plan: anemia of chronic disease transfusion support PRN Status: Acute (2) Coagulopathy Assessment & Plan: nutritional and anticoagulation Status: Acute (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
[2018-03-26] MEDS: (Novolog) Insulin Aspart, Recombinant 100 u/ml 10 ml vial SC SCH ×2 (00:42→06:07)
[2018-03-26] MEDS: Heparin25000 units/250ml 1/2NS 25,000 UNITS/250 ML BAG IV PRN (00:44)
[2018-03-26] MEDS: Albuterol-Ipratrop 3 mg / 0.5 (3 ml) UD INH SCH ×3 (02:46→13:25)
[2018-03-26] MEDS: Aritificial Tears (15ml) OU SCH ×3 (02:48→10:28)
[2018-03-26] MEDS: Albumin Human 25% (12.5 gm/50 ml) IV SCH ×2 (03:41→10:28)
[2018-03-26 05:39] LABS: ABG ALLEN TEST POS; ARTERIAL BLOOD GAS HCO3 21.7 mmol/L (21-28); ARTERIAL BLOOD GAS HEMOGLOBIN 7.6 g/dL (11.7-17.4); ARTERIAL BLOOD GAS O2 SAT 98.4 % (95-98); ARTERIAL BLOOD GAS PCO2 37 mm/Hg (35-45); ARTERIAL BLOOD GAS PH 7.36 (7.35-7.45); ARTERIAL BLOOD GAS PO2 76 mm/Hg (80-100)
[2018-03-26 05:52] LABS: BASO # 0.1 K/uL (0.0-0.2); BASO % 0.6 % (0.0-2.0); EOS # 0.1 K/uL (0.0-0.7); EOS % 0.9 % (0.0-4.0); HEMOGLOBIN 7.2 g/dL (11.0-16.0); LYMPH # 2.4 K/uL (1.0-4.3); LYMPH % 15.5 % (20.0-40.0); MEAN CELL VOLUME 93.7 fL (81.0-99.0); MEAN CORPUSCULAR HEMOGLOBIN 29.8 pg (27.0-31.0); MEAN CORPUSCULAR HGB CONC 31.8 g/dL (33.0-37.0); MEAN PLATELET VOLUME 10.5 fL (7.2-11.7); MONO # 0.9 K/uL (0.0-0.8); MONO % 6.2 % (0.0-10.0); NEUT # 11.8 K/uL (1.8-7.0); NEUT % 76.8 % (50.0-75.0); NRBC % 0.5 % (0.0-2.0); RBC 2.41 Mil/uL (3.80-5.20); RED CELL DISTRIBUTION WIDTH 19.7 % (11.5-14.5); WHITE BLOOD COUNT 15.3 K/uL (4.8-10.8)
[2018-03-26 06:20] LABS: ALB/GLOB RATIO 1.3 (1.0-2.1); ALBUMIN 3.5 g/dL (3.5-5.0); ALT/SGPT 25 U/L (9-52); AST/SGOT 47 U/L (14-36); BLOOD UREA NITROGEN 20 mg/dL (7-17); GFR NON-AFRICAN AMERICAN > 60
--- NOTE | 2018-03-26 06:58 | OP ---
PROCEDURE DATE: 03/22/2018 PREOPERATIVE DIAGNOSES: Mesenteric ischemia, necrotic small bowel. POSTOPERATIVE DIAGNOSES: Mesenteric ischemia, necrotic small bowel. PROCEDURE: Exploratory laparotomy with resection of necrotic small bowel. SURGEON: Armando Freitas MD. BLACKING MACHINE OPERATOR: Mila Thompson DO, and Dr. Faustin. TYPE OF ANESTHESIA: General. ANESTHESIA ADMINISTERED BY: Dr. Sharma. DESCRIPTION OF PROCEDURE: With the patient in the supine position under adequate general anesthesia, the abdomen was prepped and draped in the usual sterile manner. The patient had undergone two previous laparotomies for ischemic bowel and leyda were removed and the fascial sutures were incised to allow entry into the peritoneal cavity. On entering into the peritoneal cavity, there was a small quantity of brown-tinged enteric fluid noted. The patient had segments of frankly necrotic small bowel, which were stapled at either end with an Endo LOBO stapler and then removed along the mesenteric border with a Harmonic scalpel, and this was noted to extend to the area of a previous feeding jejunostomy, which was also removed. The abdomen was again irrigated with warm saline with the impression being that there was minimal viable small bowel and that the patient was not salvageable in a long-term prognosis, and closure was performed with a running suture of double-standard #1 PDS. The skin was closed with leyda and dry sterile dressing was applied. The patient remained relatively stable during the procedure and was returned to the intensive care unit in critical but stable condition. Armando Freitas MD
[2018-03-26] MEDS ORDERED: Magnesium Sulfate 1 gm in D5W 1 GM/100 ML BAG IVPB ONE (08:09)
--- NOTE | 2018-03-26 08:11 | CP.CCUPN ---
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 18:02 23:23 05:21 WBC RBC Hgb Hct MCV MCH MCHC RDW Plt Count MPV Neut % (Auto) Lymph % (Auto) [place] % (Auto) Eos % (Auto) Baso % (Auto) Neut # (Auto) Lymph # (Auto) [place] # (Auto) Eos # (Auto) Baso # (Auto) APTT Puncture Site Rr pCO2 37 pO2 76 L HCO3 21.7 ABG pH 7.36 ABG Total CO2 22.0 ABG O2 Saturation 98.4 H ABG Base Excess -4.1 L ABG Hemoglobin 7.6 L ABG Carboxyhemoglobin 2.5 H POC ABG HHb (Measured) 1.5 ABG Methemoglobin 1.3 Michele Test Pos A-a O2 Difference 163.0 Respiratory Index 2.1 Hgb O2 Saturation 94.7 L Vent Mode Prvc Mechanical Rate 15 FiO2 40.0 Tidal Volume 450 PEEP 5 Sodium Potassium Chloride Carbon Dioxide Anion Gap BUN Creatinine Est GFR ( Amer) Est GFR (Non-Af Amer) POC Glucose (mg/dL) 232 H 272 H Random Glucose Calcium Phosphorus Magnesium Total Bilirubin AST ALT Alkaline Phosphatase Total Protein Albumin Globulin Albumin/Globulin Ratio 03/26/18 03/26/18 03/26/18 05:42 05:42 05:42 WBC 15.3 H RBC 2.41 L Hgb 7.2 L Hct 22.6 L MCV 93.7 MCH 29.8 MCHC 31.8 L RDW 19.7 H Plt Count 314 MPV 10.5 Neut % (Auto) 76.8 H Lymph % (Auto) 15.5 L [place] % (Auto) 6.2 Eos % (Auto) 0.9 Baso % (Auto) 0.6 Neut # (Auto) 11.8 H Lymph # (Auto) 2.4 [place] # (Auto) 0.9 H Eos # (Auto) 0.1 Baso # (Auto) 0.1 APTT 88 H D Puncture Site pCO2 pO2 HCO3 ABG pH ABG Total CO2 ABG O2 Saturation ABG Base Excess ABG Hemoglobin ABG Carboxyhemoglobin POC ABG HHb (Measured) ABG Methemoglobin Michele Test A-a O2 Difference Respiratory Index Hgb O2 Saturation Vent Mode Mechanical Rate FiO2 Tidal Volume PEEP Sodium 144 Potassium 3.3 L Chloride 112 H Carbon Dioxide 21 L Anion Gap 14 BUN 20 H Creatinine 0.6 L Est GFR ( Amer) > 60 Est GFR (Non-Af Amer) > 60 POC Glucose (mg/dL) Random Glucose 195 H Calcium 8.0 L Phosphorus 2.8 Magnesium 1.7 Total Bilirubin 5.0 H AST 47 H D ALT 25 Alkaline Phosphatase 156 H Total Protein 6.2 L Albumin 3.5 Globulin 2.7 Albumin/Globulin Ratio 1.3 03/26/18 05:45 WBC RBC Hgb Hct MCV MCH MCHC RDW Plt Count MPV Neut % (Auto) Lymph % (Auto) [place] % (Auto) Eos % (Auto) Baso % (Auto) Neut # (Auto) Lymph # (Auto) [place] # (Auto) Eos # (Auto) Baso # (Auto) APTT Puncture Site pCO2 pO2 HCO3 ABG pH ABG Total CO2 ABG O2 Saturation ABG Base Excess ABG Hemoglobin ABG Carboxyhemoglobin POC ABG HHb (Measured) ABG Methemoglobin Michele Test A-a O2 Difference Respiratory Index Hgb O2 Saturation Vent Mode Mechanical Rate FiO2 Tidal Volume PEEP Sodium Potassium Chloride Carbon Dioxide Anion Gap BUN Creatinine Est GFR ( Amer) Est GFR (Non-Af Amer) POC Glucose (mg/dL) 188 H Random Glucose Calcium Phosphorus Magnesium Total Bilirubin AST ALT Alkaline Phosphatase Total Protein Albumin Globulin Albumin/Globulin Ratio Critical Care Progress Note - Nutrition Nutrition: Nutrition Category Date Time Status NPO Diet [DIET] Diets 03/06/18 Breakfast Active Attending/Attestation - Attestation I have personally seen and examined this patient.: Yes I have fully participated in the care of the patient.: Yes I have reviewed all pertinent clinical information: Yes Notes (Text): 03/26/18 17:12 patient seen and examined family requesting for terminal extubation Patient started on morphine drip Prognosis poor
--- NOTE | 2018-03-26 08:15 | RAD ---
Date of service: 03/26/2018 HISTORY: vent/ff up COMPARISON: Portable chest 03/25/2018. FINDINGS: LUNGS: Endotracheal and nasogastric tubes do not appear significantly changed in position as well as right central venous line. Left basilar airspace disease remains difficult to exclude, borderline at the right in the interval. PLEURA: Bilateral pleural effusions are not significantly changed remaining mild, left greater than right. No pneumothorax bilaterally. CARDIOVASCULAR: Calcific atherosclerotic changes are seen related to the thoracic aorta. Cardiac size appears stable. No significant interval change in pulmonary vascular congestion. OSSEOUS STRUCTURES: No significant abnormalities. VISUALIZED UPPER ABDOMEN: Normal. OTHER FINDINGS: None. IMPRESSION: Stable CHF pattern with mild bilateral pleural effusions remain greater the left than right sides as well as potential underlying airspace disease.
[2018-03-26 08:59] VITALS: TEMP 97.9
[2018-03-26] MEDS: Levothyroxine 200 mcg (0.2 mg) Inj IVP SCH (10:29)
--- NOTE | 2018-03-26 17:08 | CP.PCM.PN ---
Subjective - Date & Time of Evaluation Date of Evaluation: 03/26/18 Time of Evaluation: 11:00 - Subjective Subjective: Surgery: Dr. Freitas Pt seen and examined. Remains intubated on slight sedation in the ICU. Pt's prognosis discussed in detail with son and daughter at bedside. Palliative care discussion also held and family agrees to comfort care at this time. We will provide any support that the family needs in making pt comfortable. d/w Dr. Fortino Kate Objective - Vital Signs/Intake and Output Vital Signs (last 24 hours): Temp Pulse Resp BP Pulse Ox 97.9 F 100 H 15 121/42 L 98 03/26/18 08:00 03/26/18 16:00 03/26/18 16:00 03/26/18 15:52 03/26/18 16:00 Intake and Output: 03/26/18 03/26/18 06:59 18:59 Intake Total 1482.0 744.0 Output Total 475 Balance 1007.0 744.0 - Medications Medications: Current Medications Albumin Human (Albumin Human 25% (12.5 Gm/50 Ml)) 25 gm IV Q6H ARPIT Last Admin: 03/26/18 10:28 Dose: Not Given Albuterol/Ipratropium (Duoneb 3 Mg/0.5 Mg (3 Ml) Ud) 3 ml INH RQ6 ARPIT Last Admin: 03/26/18 13:25 Dose: 3 ml Artificial Tears (Artificial Tears) 0.05 ml OU Q4H ARPIT Last Admin: 03/26/18 10:28 Dose: Not Given Dextrose (Dextrose 50% Inj) 0 ml IV STAT PRN; Protocol PRN Reason: Hypoglycemia Protocol Last Admin: 03/11/18 00:13 Dose: 50 ml Dextrose (Glutose 15) 0 gm PO ONCE PRN; Protocol PRN Reason: Hypoglycemia Protocol Furosemide (Lasix) 40 mg IVP DAILY [facility] Last Admin: 03/26/18 10:29 Dose: Not Given Glucagon (Glucagen Diagnostic Kit) 0 mg IM STAT PRN; Protocol PRN Reason: Hypoglycemia Protocol Heparin Sodium/Sodium Chloride (Heparin 47062 Units/250ml 1/2 Normal Saline) 25,000 units in 250 mls @ 9.4 mls/hr IV .Q24H PRN; Protocol PRN Reason: PROTOCOL Last Admin: 03/26/18 00:44 Dose: 8.8 units/kg/hr, 9.4 mls/hr Dexmedetomidine HCl 200 mcg/ (Sodium Chloride) 50 mls @ 5.21 mls/hr IV TITR PRN; Protocol PRN Reason: Pain, Mild (1-3) Last Admin: 03/25/18 20:22 Dose: 0.05 mcg/kg/hr, 1.3 mls/hr Ceftazidime/Avibactam 2.5 gm/ (Sodium Chloride) 100 mls @ 50 mls/hr IV Q8H [facility]; Protocol Last Admin: 03/26/18 08:16 Dose: 50 mls/hr Multivitamins/Vitamin C 10 ml/Insulin Human Regular 10 unit / Chromium/Copper/Manganese/Zinc 1 ml/ Amino Acids/Electrolytes/Dextrose 1,011.1 mls @ 42 mls/hr IV .Q24H ONE Stop: 03/26/18 17:59 Last Admin: 03/25/18 18:30 Dose: 42 mls/hr Morphine Sulfate 250 mg/ (Sodium Chloride) 250 mls @ 5 mls/hr IV .Q24H PRN; Protocol PRN Reason: Sedation Last Admin: 03/26/18 11:03 Dose: 5 mg/hr, 5 mls/hr Insulin Human Regular 10 unit/Multivitamins/Vitamin C 10 ml / Chromium/Copper/Manganese/Zinc 1 ml/ Amino Acids/Electrolytes/Dextrose 1,011.1 mls @ 42 mls/hr IV .Q24H ONE Stop: 03/27/18 17:59 Insulin Aspart (Novolog) 0 unit SC Q6 ARPIT; Protocol Last Admin: 03/26/18 06:07 Dose: 2 units Levothyroxine Sodium (Levothyroxine) 75 mcg IVP DAILY [facility] Last Admin: 03/26/18 10:29 Dose: Not Given Pantoprazole Sodium (Protonix Inj) 40 mg IVP Q12H [facility] Last Admin: 03/26/18 03:41 Dose: 40 mg Vitamin A (Vitamin A & D Oint Ud Foilpak) 0.5 ea TOP Q4 PRN PRN Reason: Lip dryness Last Admin: 03/25/18 21:50 Dose: 0.5 ea - Labs Labs: 03/26/18 05:42 03/26/18 05:42 PT 21.5 SECONDS (9.7-12.2) H 03/22/18 06:30 INR 2.0 03/22/18 06:30 APTT 88 SECONDS (21-34) H D 03/26/18 05:42 - Constitutional Appears: No Acute Distress - Cardiovascular Exam Cardiovascular Exam: Tachycardia - GI/Abdominal Exam GI & Abdominal Exam: Distended Additional comments: midline incision with dressing; ostomy bag over previous jejunostomy - Skin Skin Exam: Warm
[2018-03-26] MEDS ORDERED: TPN IV ONE (18:00)
[2018-03-26 22:02] VITALS: BP 110/39; PULSE 112; RESP 16; O2SAT 88
--- NOTE | 2018-03-26 22:14 | CP.PCM.PN ---
Subjective - Date & Time of Evaluation Date of Evaluation: 03/26/18 Time of Evaluation: 11:40 - Subjective Subjective: clinically same Objective - Vital Signs/Intake and Output Vital Signs (last 24 hours): Temp Pulse Resp BP Pulse Ox 97.9 F 112 H 16 110/39 L 88 L 03/26/18 08:00 03/26/18 22:00 03/26/18 22:00 03/26/18 21:52 03/26/18 22:00 Intake and Output: 03/26/18 03/27/18 18:59 06:59 Intake Total 764.0 40 Balance 764.0 40 - Medications Medications: Current Medications Artificial Tears (Artificial Tears) 0.05 ml OU Q4H [facility] Last Admin: 03/26/18 10:28 Dose: Not Given Morphine Sulfate 250 mg/ (Sodium Chloride) 250 mls @ 5 mls/hr IV .Q24H PRN; Protocol PRN Reason: Sedation Last Admin: 03/26/18 11:03 Dose: 5 mg/hr, 5 mls/hr Scopolamine (Transderm-Scop) 1 patch TD Q3D ARPIT Last Admin: 03/26/18 18:23 Dose: 1 patch - Labs Labs: 03/26/18 05:42 03/26/18 05:42 PT 21.5 SECONDS (9.7-12.2) H 03/22/18 06:30 INR 2.0 03/22/18 06:30 APTT 88 SECONDS (21-34) H D 03/26/18 05:42 - Constitutional Appears: In Acute Distress - Head Exam Head Exam: ATRAUMATIC, NORMAL INSPECTION, NORMOCEPHALIC - Eye Exam Eye Exam: EOMI, Normal appearance, PERRL Pupil Exam: NORMAL ACCOMODATION, PERRL - ENT Exam ENT Exam: Mucous Membranes Moist - Respiratory Exam Respiratory Exam: Decreased Breath Sounds, Rales, Rhonchi - Cardiovascular Exam Cardiovascular Exam: REGULAR RHYTHM, +S1, +S2 - GI/Abdominal Exam GI & Abdominal Exam: Distended, Soft, Tenderness, Diminished Bowel Sounds - Rectal Exam Rectal Exam: Deferred - Neurological Exam Neurological Exam: Altered
--- NOTE | 2018-03-27 00:22 | CP.PCM.PRO ---
Pronouncement of Note - Clinical Findings Physical Exam: No Response Verbal/Painful Stimuli, Absent Peripheral Puls es{Carotid & Femoral}, Absent Heart & Breath Sounds, No Pupillary Light Reflex, No Corneal Reflex, Pupils Fixed & Dilated, Absence of Vital Signs - Pronouncement Time Time of Pronouncement of : 22:54 - Notifications Pronouncement Notifications: Family Notified Manager Department Notified: No - Autopsy Autopsy Requested: No - [place] [id number]
--- NOTE | 2018-03-27 22:24 | CP.PCM.PN ---
Subjective - Date & Time of Evaluation Date of Evaluation: 03/26/18 Time of Evaluation: 12:00 - Subjective Subjective: For comfort care Objective - Vital Signs/Intake and Output Vital Signs (last 24 hours): Temp Pulse Resp BP Pulse Ox 97.9 F 112 H 16 110/39 L 88 L 03/26/18 08:00 03/26/18 22:00 03/26/18 22:00 03/26/18 21:52 03/26/18 22:00 - Labs Labs: 03/26/18 05:42 03/26/18 05:42 PT 21.5 SECONDS (9.7-12.2) H 03/22/18 06:30 INR 2.0 03/22/18 06:30 APTT 88 SECONDS (21-34) H D 03/26/18 05:42 - Head Exam Head Exam: ATRAUMATIC - Eye Exam Eye Exam: Normal appearance - ENT Exam ENT Exam: Mucous Membranes Dry - Respiratory Exam Respiratory Exam: NORMAL BREATHING PATTERN - Cardiovascular Exam Cardiovascular Exam: +S1, +S2 - GI/Abdominal Exam GI & Abdominal Exam: Normal Bowel Sounds Assessment and Plan (1) Anemia Assessment & Plan: anemia of chronic disease transfusion support PRN Status: Acute (2) Coagulopathy Assessment & Plan: nutritional and anticoagulation Status: Acute (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 Status: Acute
== END 2018-03-27 01:03 | DRG 853 ==
LOC: C.ER 11:16 → C.9E 13:37 → C.9I 14:46
PROVIDERS: ADMIT Internal Medicine Nephrology; ATTEND Internal Medicine Nephrology
PROC: 3E033XZ Introduction of Vasopressor into Peripheral Vein, Percutaneous Approach (ICD-10-PCS; 2018-03-06)
PROC: 0BH17EZ Insertion of Endotracheal Airway into Trachea, Via Natural or Artificial Opening (ICD-10-PCS; 2018-03-06)
PROC: 5A1955Z Respiratory Ventilation, Greater than 96 Consecutive Hours (ICD-10-PCS; 2018-03-06)
PROC: 05HY33Z Insertion of Infusion Device into Upper Vein, Percutaneous Approach (ICD-10-PCS; 2018-03-06)
PROC: 0WJP0ZZ Inspection of Gastrointestinal Tract, Open Approach (ICD-10-PCS; principal; 2018-03-06 19:00)
PROC: 30233N1 Transfusion of Nonautologous Red Blood Cells into Peripheral Vein, Percutaneous Approach (ICD-10-PCS; 2018-03-07)
PROC: 30233K1 Transfusion of Nonautologous Frozen Plasma into Peripheral Vein, Percutaneous Approach (ICD-10-PCS; 2018-03-10)
PROC: 0DB80ZZ Excision of Small Intestine, Open Approach (ICD-10-PCS; 2018-03-11 10:00)
PROC: 0DTA0ZZ Resection of Jejunum, Open Approach (ICD-10-PCS; 2018-03-22)
DX: A41.9 Sepsis, unspecified organism (principal); K55.019 Acute (reversible) ischemia of small intestine, extent unspecified; R65.21 Severe sepsis with septic shock; J96.21 Acute and chronic respiratory failure with hypoxia; J15.6 Pneumonia due to other Gram-negative bacteria; E87.2 Acidosis; C24.9 Malignant neoplasm of biliary tract, unspecified; K55.9 Vascular disorder of intestine, unspecified; N17.8 Other acute kidney failure; F03.90 Unspecified dementia, unspecified severity, without behavioral disturbance, psychotic disturbance, mood disturbance, and anxiety; I10 Essential (primary) hypertension; E03.9 Hypothyroidism, unspecified; E11.9 Type 2 diabetes mellitus without complications; R10.0 Acute abdomen; Z87.891 Personal history of nicotine dependence; Z88.6 Allergy status to analgesic agent; Z79.4 Long term (current) use of insulin